=== PATIENT | female | born 1980 | race Caucasian/White ===

== ENCOUNTER 2017-01-31 14:20 | Emergency (ER) | payer MEDICARE, MEDICAID ==
[~2017-01-31] VITALS: Ht 160 cm; Wt 89.8 kg
[~2017-01-31 14:20] MED LIST: CELE20TA; COUMADIN PO; COUMADIN25 PO; HYDR25TA8; NAPROSY500 PO; TRAZ50TA
[2017-01-31] MEDS ORDERED: BREO1INH (14:44)
[2017-01-31] MEDS ORDERED: OMEP20CA3 (14:44)
[2017-01-31] MEDS ORDERED: FERR325T (14:44)
[2017-01-31] MEDS ORDERED: ALBU17IN (14:44)
[2017-01-31] MEDS ORDERED: ATOR40TA (14:44)
[2017-01-31] MEDS ORDERED: PRAZ1CAP (14:44)
[2017-01-31] MEDS ORDERED: TRAZ50TA4 (14:44)
[2017-01-31] MEDS ORDERED: VITA50003 (14:44)
[2017-01-31] MEDS ORDERED: FLUO40CA (14:44)
[2017-01-31 16:23] VITALS: BP 121/74
--- NOTE | 2017-01-31 17:19 | REP ---
RIGHT ELBOW: HISTORY: Pain after trauma. FINDINGS: There is no acute fracture, dislocation, subluxation, or joint effusion. Signed by Reynaldo Peters DO 02/01/2017 11:53 A
--- NOTE | 2017-01-31 17:28 | REP ---
RIGHT HAND: HISTORY: Pain after trauma. No priors for comparison. FINDINGS: The joint spaces are symmetric and relatively well maintained. There is no evidence of acute fracture or destructive osseous lesion. IMPRESSION: Negative hand. Signed by Reynaldo Peters DO 02/01/2017 11:53 A
--- NOTE | 2017-01-31 17:33 | REP ---
RIGHT TIBIA FIBULA: HISTORY: Pain after trauma. COMPARISON: None. FINDINGS: No acute fracture or destructive osseous lesion. There is mild pericortical thickening involving the fibula, likely secondary to reparative/remodeling process due to an old stress related phenomena. Signed by Reynaldo Peters DO 02/01/2017 11:53 A
--- NOTE | 2017-02-03 19:21 | ED PDOC ---
Provider Note aiden mayorga faxed formal report of right tib/fib for fu Holli Allison MD Feb 03, 2017 19:21
== END 2017-01-31 16:35 | disposition home or self-care (01) ==
LOC: M ED 15:26
DX: S50.01XA Contusion of right elbow, initial encounter (principal); S80.11XA Contusion of right lower leg, initial encounter; W10.9XXA Fall (on) (from) unspecified stairs and steps, initial encounter; Y92.019 Unspecified place in single-family (private) house as the place of occurrence of the external cause; Y93.01 Activity, walking, marching and hiking; Y99.8 Other external cause status; Z88.6 Allergy status to analgesic agent; Z79.899 Other long term (current) drug therapy; I10 Essential (primary) hypertension; J45.909 Unspecified asthma, uncomplicated; F41.9 Anxiety disorder, unspecified; F32.9 Major depressive disorder, single episode, unspecified

== ENCOUNTER 2017-02-20 11:57 | Emergency (ER) | payer MEDICARE, MEDICAID ==
[~2017-02-20] VITALS: Ht 157.5 cm; Wt 90.7 kg
[~2017-02-20 11:57] MED LIST changes: +ALBU17IN; +ATOR40TA; +BREO1INH; +FERR325T; +FLUO40CA; +OMEP20CA3; +PRAZ1CAP; +TRAZ50TA4; +VITA50003
[2017-02-20] MEDS ORDERED: TRAZ150T14 PO (12:12)
[2017-02-20] MEDS ORDERED: ONDANSETRON 4 MG ORAL DISINTEGRATING TAB (S0181) PO ONE (12:30)
[2017-02-20] MEDS ORDERED: NORCO, ANEXSIA 5/325MG TABLET (HYDROcodone/ACETAMINOPHEN) PO ONE (12:30)
--- NOTE | 2017-02-20 13:26 | REP ---
Clinical: Trauma. Technique: AP, lateral, bilateral oblique views of the left wrist. Findings: Diffuse osteopenia. No obvious acute fracture or dislocation identified. No significant soft tissue swelling. No subcutaneous emphysema or radiodense foreign body. Impression: Osteopenia. No obvious acute fracture dislocation. Signed by Perez Downing MD 02/20/2017 01:17 P
[2017-02-20 13:39] VITALS: BP 119/78
== END 2017-02-20 13:45 | disposition home or self-care (01) ==
LOC: M ED 13:01
DX: S63.522A Sprain of radiocarpal joint of left wrist, initial encounter (principal); W19.XXXA Unspecified fall, initial encounter; Y92.89 Other specified places as the place of occurrence of the external cause; Y93.89 Activity, other specified; Y99.9 Unspecified external cause status

== ENCOUNTER 2017-02-27 08:14 | Outpatient (RCR) | payer MEDICARE, MEDICAID | END 2017-03-24 | LOC: M OT 08:14 | PROVIDERS: ATTEND Nurse Practitioner Adult Health | DX: M25.539 Pain in unspecified wrist (principal); M77.9 Enthesopathy, unspecified | CPT/HCPCS: 97165; G8984; G8985 ==

== ENCOUNTER → 2017-02-27 | Outpatient (CLI) | payer MEDICARE, MEDICAID ==
[~2017-02-27] MED LIST changes: +TRAZ150T14 PO
[2017-02-27 11:06] LABS: MEAN CORPUSCULAR HEMOGLOBIN 30.2 pg (27.0-33.0); MEAN CORPUSCULAR HGB CONC 33.5 g/dl (32.0-36.5); MEAN CORPUSCULAR VOLUME 90.2 fl (80.0-96.0); RED CELL DISTRIBUTION WIDTH 12.6 % (11.5-14.5); WHITE BLOOD COUNT 5.6 K/mm3 (4.0-10.0)
--- NOTE | 2017-02-27 11:18 | REP ---
TWO VIEW CHEST: COMPARISON: 08/15/2015 There is no evidence of acute infiltrate. No pleural effusion is seen. The heart is normal in size. The mediastinal silhouette is unremarkable. The visualized osseous structures are intact. IMPRESSION: No acute pulmonary disease. Signed by Nathan Mederos MD 02/27/2017 12:16 P
[2017-02-27 12:03] LABS: ALBUMIN/GLOBULIN RATIO 1.14 (1.00-1.93); ALKALINE PHOSPHATASE 99 U/L (45-117); ALT/SGPT 21 U/L (12-78); ANION GAP 5 MEQ/L (8-16); AST/SGOT 16 U/L (15-37); BILIRUBIN,TOTAL 0.3 MG/DL (0.2-1.0); BLOOD UREA NITROGEN 13 MG/DL (7-18); CARBON DIOXIDE LEVEL 30 MEQ/L (21-32); CHLORIDE LEVEL 105 MEQ/L (98-107); CHOLESTEROL LEVEL 136 MG/DL (<200); CREATININE FOR GFR 0.79 MG/DL (0.55-1.02); FERRITIN 77 NG/ML (8-252); GLOMERULAR FILTRATION RATE > 60.0 (>60); GLUCOSE, FASTING 101 MG/DL (70-105); SODIUM LEVEL 140 MEQ/L (136-145); TOTAL PROTEIN 7.5 GM/DL (6.4-8.2); TRIGLYCERIDES LEVEL 85 MG/DL (<150)
[2017-02-27 13:16] LABS: EOSINOPHILS 4 % (0-5)
== END ==
LOC: M LAB 10:14
PROVIDERS: ATTEND Physician Assistant Medical
DX: D64.9 Anemia, unspecified (principal); E78.2 Mixed hyperlipidemia; E55.9 Vitamin D deficiency, unspecified

== ENCOUNTER 2017-04-13 21:51 | Observation (INO) | payer MEDICARE, MEDICAID ==
[~2017-04-13] VITALS: Ht 157.5 cm; Wt 90.2 kg
[~2017-04-13 21:51] MED LIST changes: -ALBU17IN; +ALBU17IN PO; -ATOR40TA; +ATOR40TA75 PO; -BREO1INH; +BREO1INH PO; +FERR1TAB8 PO; -FERR325T; -FLUO40CA; +FLUO40CA PO; -OMEP20CA3; +OMEP20CA3 PO; -TRAZ150T14 PO; +TRAZ1TAB14 PO; +TRAZ50TA11; -TRAZ50TA4; +VITA1CAP40 PO; -VITA50003
[2017-04-13] MEDS ORDERED: NITROGLYCERIN 0.4 MG SUBL TABLET SL STA ×2 (22:25→22:55)
[2017-04-13 22:30] LABS: BASO % 0.5 % (0.0-1.0); EOS # 0.2 K/mm3 (0.0-0.50); EOS % 2.6 % (0.0-3.0); LARGE UNSTAINED CELL # 0.1 K/mm3 (0.0-0.4); LARGE UNSTAINED CELL % 1.3 % (0.0-4.0); LYMPH # 2.2 K/mm3 (1.5-4.5); LYMPH % 28.3 % (24.0-44.0); MEAN CORPUSCULAR HEMOGLOBIN 31.4 pg (27.0-33.0); MEAN CORPUSCULAR HGB CONC 33.7 g/dl (32.0-36.5); MEAN CORPUSCULAR VOLUME 93.2 fl (80.0-96.0); MONO # 0.5 K/mm3 (0.0-0.8); MONO % 5.8 % (0.0-5.0); NEUTROPHILS # 4.8 K/mm3 (1.8-7.7); NEUTROPHILS % 61.6 % (36.0-66.0); PLATELET COUNT, AUTOMATED 251 k/mm3 (150-450); RED CELL DISTRIBUTION WIDTH 12.4 % (11.5-14.5); WHITE BLOOD COUNT 7.7 K/mm3 (4.0-10.0)
[2017-04-13 22:44] LABS: INR 1.09
[2017-04-13 22:54] LABS: ALBUMIN 4.4 GM/DL (3.2-5.2); ALKALINE PHOSPHATASE 112 U/L (45-117); ALT/SGPT 25 U/L (12-78); ANION GAP 7 MEQ/L (8-16); AST/SGOT 17 U/L (15-37); BILIRUBIN,DIRECT 0.2 MG/DL (0.0-0.2); BILIRUBIN,TOTAL 0.7 MG/DL (0.2-1.0); BLOOD UREA NITROGEN 13 MG/DL (7-18); CALCIUM LEVEL 8.9 MG/DL (8.5-10.1); CARBON DIOXIDE LEVEL 31 MEQ/L (21-32); CHLORIDE LEVEL 101 MEQ/L (98-107); CREATININE FOR GFR 1.04 MG/DL (0.55-1.02); GLOMERULAR FILTRATION RATE > 60.0 (>60); GLUCOSE, FASTING 84 MG/DL (70-105); POTASSIUM SERUM 3.5 MEQ/L (3.5-5.1); SODIUM LEVEL 139 MEQ/L (136-145); TOTAL PROTEIN 8.4 GM/DL (6.4-8.2)
[2017-04-13] MEDS ORDERED: ISOVUE-370 76% 100ML VIAL (Q9967) As Ordered ONE (23:06)
[2017-04-13 23:18] LABS: FREE T4 0.99 NG/DL (0.76-1.46); MAGNESIUM LEVEL 1.8 MG/DL (1.8-2.4); PHOSPHORUS LEVEL 4.2 MG/DL (2.5-4.9)
--- NOTE | 2017-04-14 | REPUSA ---
CLINICAL HISTORY: Edema. COMMENTS: Real time sonography with duplex doppler of the extremities bilaterally was performed with attention to the major deep venous structures. Evaluation reveals the common femoral, superficial femoral, popliteal veins bilaterally to be complet delaney compressible without intraluminal thrombus. There is normal spontaneous phasic flow and augmentat ion in all deep veins. The greater saphenous/common femoral vein junctions are patent bilaterally. IMPRESSION: No evidence of DVT in the lower extremities bilaterally. Thank you for your kind referral of this patient.
--- NOTE | 2017-04-14 | REPUSA ---
History: chest pain. Comparison: No prior CTA of the chest available Technique: A CT-pulmonary angiogram was performed. A dose of intravenous contrast was administered. A xial images were displayed, as were sagittal and coronal reconstructions. Findings: No CT evidence of pulmonary embolism is identified. There is no evidence of thoracic aortic aneurysm or dissection. No air space consolidation is identified in the lungs. There is no evidence of pulmonary edema. No pa thologically enlarged hilar or mediastinal lymph nodes are identified. No significant pleural or maximus cardial fluid collection is seen. There is no evidence of pneumothorax. The included portion of the upper abdomen does not show significant abnormality. Impression: No evidence of pulmonary embolism is identified.
[2017-04-14] MEDS ORDERED: BISACODYL 5 MG TAB PO PRN (04:45)
[2017-04-14] MEDS ORDERED: ONDANSETRON 4MG/2ML VIAL (J2405) IV PRN (04:45)
[2017-04-14] MEDS ORDERED: MORPHINE 2 MG/ML 1ML SYRINGE IV PRN (05:00)
[2017-04-14] MEDS ORDERED: TERB1CRE12 TOP (05:01)
[2017-04-14] MEDS ORDERED: FERR325T3 PO (05:01)
[2017-04-14] MEDS ORDERED: amLODIPine 10 MG TAB PO ONE (05:30)
[2017-04-14] MEDS ORDERED: POTASSIUM CHLORIDE 10 MEQ SR TABLET PO ONE (05:45)
[2017-04-14] MEDS ORDERED: MAG SULF 1GM/100ML (MAG RUN) 1 GM in APPROPRIATE DILUENT 1 EA IV ONE (05:45)
[2017-04-14] MEDS ORDERED: GI COCKTAIL 50ML BTL(HYOSCYAMINE/MAALOX/LIDOCAINE VISCOUS)(1:3:1) PO ONE (06:00)
[2017-04-14] MEDS ORDERED: GI COCKTAIL 50ML BTL(HYOSCYAMINE/MAALOX/LIDOCAINE VISCOUS)(1:3:1) PO PRN (06:00)
[2017-04-14] MEDS ORDERED: SUCRALFATE 1 GM TAB PO ONE (06:00)
[2017-04-14 06:21] LABS: BASO % 0.6 % (0.0-1.0); EOS # 0.2 K/mm3 (0.0-0.50); EOS % 3.3 % (0.0-3.0); LARGE UNSTAINED CELL # 0.1 K/mm3 (0.0-0.4); LARGE UNSTAINED CELL % 1.7 % (0.0-4.0); LYMPH # 2.3 K/mm3 (1.5-4.5); LYMPH % 34.9 % (24.0-44.0); MEAN CORPUSCULAR HEMOGLOBIN 30.3 pg (27.0-33.0); MEAN CORPUSCULAR HGB CONC 33.2 g/dl (32.0-36.5); MEAN CORPUSCULAR VOLUME 91.2 fl (80.0-96.0); MONO # 0.4 K/mm3 (0.0-0.8); MONO % 6.4 % (0.0-5.0); NEUTROPHILS # 3.4 K/mm3 (1.8-7.7); NEUTROPHILS % 53.1 % (36.0-66.0); PLATELET COUNT, AUTOMATED 222 k/mm3 (150-450); RED CELL DISTRIBUTION WIDTH 12.8 % (11.5-14.5); WHITE BLOOD COUNT 6.3 K/mm3 (4.0-10.0)
[2017-04-14 06:30] VITALS: BP 150/87
[2017-04-14] MEDS ORDERED: PENICILLIN V POTASSIUM 500 MG TAB PO ONE (06:30)
[2017-04-14 07:24] LABS: ANION GAP 8 MEQ/L (8-16); BLOOD UREA NITROGEN 17 MG/DL (7-18); CALCIUM LEVEL 8.7 MG/DL (8.5-10.1); CARBON DIOXIDE LEVEL 28 MEQ/L (21-32); CHLORIDE LEVEL 105 MEQ/L (98-107); CHOLESTEROL LEVEL 168 MG/DL (<200); CREATININE FOR GFR 0.87 MG/DL (0.55-1.02); GLOMERULAR FILTRATION RATE > 60.0 (>60); GLUCOSE, FASTING 97 MG/DL (70-105); MAGNESIUM LEVEL 2.1 MG/DL (1.8-2.4); POTASSIUM SERUM 4.2 MEQ/L (3.5-5.1); SODIUM LEVEL 141 MEQ/L (136-145); TRIGLYCERIDES LEVEL 62 MG/DL (<150)
[2017-04-14 08:00] VITALS: BP 135/76
--- NOTE | 2017-04-14 08:02 | ECGEPIP ---
Stationary ECG Study [facility] Test Date: 2017-04-14 Pat Name: SCOTT SENIOR Department: Room: - Gender: F Integrity Manager: LUZ : 1980 Requested By: BRUCE Germain Order Number: [id number] Reading MD: Dominga Levy Measurements Intervals [place] Rate: 57 P: 22 ME: 168 QRS: 5 QRSD: 111 T: 38 QT: 421 QTc: 413 Interpretive Statements SINUS BRADYCARDIA MODERATE INTRAVENTRICULAR CONDUCTION DELAY RATE SLOWER PVCS ABSENT C/W 07/19/16 Electronically Signed On 04-14-2017 8:02:20 EDT by Dominga Levy
--- NOTE | 2017-04-14 08:07 | REP ---
Clinical: Chest pain . Comparison: 02/27/2017 . Findings: The mediastinum and cardiac silhouette are stable and within normal limits for portable technique. The lung aguirre are clear without acute consolidation, effusion, or pneumothorax. Skeletal structures are intact. Impression: Normal portable chest x-ray Signed by Perez Downing MD 04/14/2017 07:58 A
--- NOTE | 2017-04-14 08:17 | HPE ---
DATE OF ADMISSION: 04/13/2017 PRIMARY CARE PROVIDER: JOHANN Rm INPATIENT HOSPITALIST ATTENDING: Dr. Edy Naranjo CHIEF COMPLAINT: Chest pain, shortness of breath. HISTORY OF PRESENT ILLNESS: This is a 36-year-old female with a history of hypertension, pulmonary embolus (PE) treated in 2006 with 6 months of anticoagulation, who presents to the emergency room with complaints of left-sided anterior chest pain without radiation for the past 3 days, that occurred while she was lying down, constant and achy, "like someone punched me in the chest", accompanied with some nausea without vomiting, with no recent trauma. She has also been having subjective fevers and feeling hot and cold, sore throats on and off for the past few weeks with positive Streptococcus screen. The patient denied any history of palpitations, lightheadedness, dizziness. Denies any prior history of cocaine abuse. Has a family history of coronary artery disease in the father who had an myocardial infarction (ID) as a young man and currently still alive in his 60s. The patient cardiovascular risk factors are hypertension, hyperlipidemia. No priors history of smoking. In the emergency room, she was found to have no pulmonary embolism on repeat CT of the chest. Troponins were negative. Electrocardiogram (EKG) showed bigeminy, ventricular rate of 71 with moderate intraventricular conduction delay. Potassium and magnesium were supplemented. The patient denied any prior history of reflux, denies hematemesis, bright red blood per rectum, melena, or black tarry stools, but is on chronic Prilosec. No prior history of peptic ulcer disease. No prior esophagogastroduodenoscopy (EGD), colonoscopy or upper gastrointestinal (GI) series. She also denies any history of smoking, asthma, or lung issues in the past. Hospitalist service was called for admission for further evaluation of chest pain. PAST MEDICAL HISTORY: Pulmonary embolism in 2006 while she was treated with 6 months of anticoagulation. Hypertension. Bipolar disorder. Dysmenorrhea with chronic anemia iron deficiency. Depression. Hyperlipidemia. PAST SURGICAL HISTORY: times two. Tonsillectomy. Right carpal tunnel repair. Left arm ligament repair. SOCIAL HISTORY: Denies any history of cigarette use, alcohol use. Currently on disability. FAMILY HISTORY: Mother in her 60s alive and well with asthma. Father has coronary artery disease, ID at an early age. He is still alive at age 60. ALLERGIES: ACETAMINOPHEN causing nausea. ASPIRIN, hives. IBUPROFEN, pruritus and hives. HOME MEDICATIONS: - trazodone 150 mg nightly as needed - ferrous sulfate 325 mg by mouth three times a day - fluoxetine 40 mg daily - Prilosec 20 mg daily - prazosin 1 mg daily - albuterol as needed - vitamin D deficiency - Breo Ellipta inhaled daily - atorvastatin 40 mg daily REVIEW OF SYSTEMS: Per history of present illness (HPI), 12-point system otherwise negative. PHYSICAL EXAMINATION: VITAL SIGNS: Blood pressure 163/97, pulse 60 sinus rhythm, temperature 97.9, respiratory rate 16, pulse ox 99% on room air. GENERAL: The patient is awake, alert, oriented times three. Answers questions appropriately. No respiratory distress. No cyanosis. No use of respiratory accessory muscles. HEENT: Anicteric sclera. Pupils equal, round, and reactive to light and accommodation. Extraocular muscles are intact. Normocephalic, atraumatic. No pharyngeal erythema. No tonsillar exudates. No cervical lymphadenopathy. No thyromegaly. No jugular venous distention. LUNGS: Lungs are clear to auscultation. No wheezing, rales or rhonchi. HEART: S1, S2 sinus rhythm. Reducible anterior chest pain on palpation. No murmurs, rubs or gallops. ABDOMEN: Soft, nontender, nondistended. Obese abdomen. EXTREMITIES: No cyanosis, clubbing or pitting edema. Multiple scars of the right forearm from prior carpal tunnel release repair as well as tendon repair in the left forearm. EKG: Sinus rhythm, ventricular rate at 71. Moderate intraventricular conduction delay. MS interval 161, QRS 114, QT 395, QTC 418. White count 7.7, hemoglobin 16, hematocrit 48, platelet count 251. Sodium 139, potassium 3.5, chloride 101, bicarbonate 31, BUN 13, creatinine 1.04, glucose 84 , calcium 8.9, magnesium 1.8, phosphorus 4.2, total bilirubin 0.7, direct bilirubin 0.2, AST 17, ALT 25, alkaline phosphatase 112, total CK 83, MB fraction 1. Relative index 1.2, troponin I less than 0.02, BNP 22.4, total protein 8.4, albumin 4.4, lipase 119, TSH 3.17, free T4 0.99. Microbiology and cultures are pending. CT chest: No pulmonary embolism. No thoracic aortic aneurysm or dissection. No airspace consolidation. No hilar or mediastinal lymphadenopathy. No pneumothorax. Venous Dopplers of the lower extremities: No evidence of deep venous thrombosis (DVT) bilaterally. ASSESSMENT/PLAN: This is a 36-year-old female with prior history of pulmonary embolism in 2006 during her stage, treated with anticoagulation for 6 months, hypertension, hyperlipidemia, bipolar disorder who presents to the emergency room with on and off complaints of sore throat found to be Streptococcus positive. Also complained of 3 days of left anterior chest pain described as if someone had punched her. No history of trauma. This occurred while she was lying down, accompanied with some shortness of breath. The patient was evaluated for PE, which was negative. EKG showed bigemini. Troponins are negative. The patient is admitted for further evaluation as an observation. Attending physician Dr. Edy Naranjo. IMPRESSION: 1. Atypical chest pain. Troponins are negative. Imaging studies including CT chest is negative for pulmonary embolus (PE). The patient appears to have costochondritis or musculoskeletal pain, but with allergies to aspirin, Tylenol and ibuprofen, as needed morphine for now. 2. For acute kidney injury, we will provide IV fluids. Once creatinine is improved, may be discharged home. The patient will need continued proton pump inhibitor (PPI). Will send for H. Pylori serum antigen. May need an upper gastrointestinal (GI) series as an out patient to rule out a hiatal hernia and empiric treatment with GI cocktail and Carafate. 3. Hypertension: Uncontrolled. Continue Norvasc until urine drug screen is negative for drug use. The patient denies any drug use, however. Start on Norvasc 10 mg daily. The patient is bradycardic. 4. Abnormal Electrocardiogram (EKG) with bigemini intraventricular conduction delay. Telemetry monitoring and echocardiogram. Unlikely to be anything concerning. May discharge home if telemetry is unremarkable. 5. History of bipolar disorder: Resume home medications. 6. Insomnia: Resume trazodone as needed. 7. Depression/bipolar disorder: Continue on psychiatric medications. 8. Hyperlipidemia: Check lipid profile and continue on Lipitor. 9. Deep venous thrombosis (DVT) prophylaxis with Lovenox injections. DISPOSITION: May discharge home if workup is negative. [facility]
[2017-04-14] MEDS: ATORVASTATIN 20 MG TAB PO SCH (08:18)
[2017-04-14] MEDS: FLUoxetine 20 MG CAP PO SCH (08:19)
[2017-04-14] MEDS: OMEPRAZOLE 20 MG CAP PO SCH (08:19)
[2017-04-14] MEDS: FERROUS SULFATE 325MG TAB PO SCH ×3 (08:20→20:51)
[2017-04-14] MEDS: ENOXAPARIN 40 MG/0.4 ML SYRINGE (J1650) SC SCH (08:22)
[2017-04-14] MEDS: NS 1,000 ML IV SCH ×2 (08:22→14:41)
[2017-04-14] MEDS: PRAZOSIN 1 MG CAP PO SCH (08:40)
[2017-04-14] MEDS ORDERED: BREO ELLIPTA INH SCH (09:00)
[2017-04-14 12:00] VITALS: BP 115/62
[2017-04-14] MEDS: SUCRALFATE 1 GM TAB PO SCH ×3 (12:10→20:51)
--- NOTE | 2017-04-14 12:33 | ECGEPIP ---
Stationary ECG Study [facility] Test Date: 2017-04-14 Pat Name: SCOTT SENIOR Department: Room: - Gender: F Roll Cleaner: LUZ : 1980 Requested By: BRUCE Germain Order Number: [id number] Reading MD: Dominga Levy Measurements Intervals [place] Rate: 62 P: 11 RI: 152 QRS: 11 QRSD: 113 T: 50 QT: 410 QTc: 417 Interpretive Statements SINUS RHYTHM MODERATE INTRAVENTRICULAR CONDUCTION DELAY T WAVE ABN SEPTAL AGAIN PRESENT COMPARED TO 04/14/17 Electronically Signed On 04-14-2017 12:32:30 EDT by Dominga Levy
[2017-04-14 16:00] VITALS: BP 141/71
[2017-04-14] MEDS ORDERED: ACETAMINOPH W/CODEINE #3 TAB UD PO PRN (18:45)
[2017-04-14 20:00] VITALS: BP 122/71
--- NOTE | 2017-04-14 20:01 | ECGEPIP ---
Stationary ECG Study [facility] - ED Test Date: 2017-04-13 Pat Name: SCOTT SENIOR Department: Room: [place] [address] Gender: F Skill Training Program Coordinator: aimee : 1980 Requested By: ELMER PASCUAL Order Number: [id number] Reading MD: Erika Jacinto Measurements Intervals [place] Rate: 71 P: 24 [place]: 161 QRS: 14 QRSD: 114 T: 47 QT: 395 QTc: 431 Interpretive Statements SINUS RHYTHM MODERATE INTRAVENTRICULAR CONDUCTION DELAY SEPTAL T WAVE ABNORMALITY COMPARED 07/19/16 Electronically Signed On 04-14-2017 20:01:11 EDT by Erika Jacinto
--- NOTE | 2017-04-14 20:04 | ECGEPIP ---
Stationary ECG Study [facility] - ED Test Date: 2017-04-13 Pat Name: SCOTT SENIOR Department: Room: [place] [address] Gender: F Manager Lan: aimee : 1980 Requested By: HANNA Butler Order Number: [id number] Reading MD: Eriak Jacinto Measurements Intervals [place] Rate: 103 P: [place]: 0 QRS: -5 QRSD: 114 T: 68 QT: 390 QTc: 511 Interpretive Statements SINUS RHYTHM WITH VENTRICULAR PREMATURE COMPLEXES MODERATE INTRAVENTRICULAR CONDUCTION DELAY ABNORMAL RHYTHM ECG INCREASED RATE/ECTOPY 22:07 Electronically Signed On 04-14-2017 20:04:03 EDT by Erika Jacinto
--- NOTE | 2017-04-14 20:05 | ECGEPIP ---
Stationary ECG Study [facility] - ED Test Date: 2017-04-14 Pat Name: SCOTT SENIOR Department: Room: [place] [address] Gender: F Pipe And Test Supervisor: aimee : 1980 Requested By: HANNA Butler Order Number: [id number] Reading MD: Erika Jacinto Measurements Intervals [place] Rate: 101 P: 45 ME: 210 QRS: 4 QRSD: 110 T: 61 QT: 360 QTc: 467 Interpretive Statements SINUS TACHYCARDIA WITH FIRST DEGREE AV BLOCK WITH FREQUENT VENTRICULAR PREMATURE COMPLEXES NONSPECIFIC T-WAVE ABNORMALITY INCREASED RATE /ECTOPY 12:02 Electronically Signed On 04-14-2017 20:04:56 EDT by Erika Jacinto
[2017-04-14 20:15] VITALS: BP 138/77
[2017-04-14] MEDS: PENICILLIN V POTASSIUM 500 MG TAB PO SCH (20:51)
[2017-04-14] MEDS ORDERED: traZODone 50 MG TAB PO SCH (21:00)
--- NOTE | 2017-04-15 05:58 | ECHO ---
DATE OF PROCEDURE: 04/14/2017 AGE: 36 GENDER: Female REFERRING PHYSICIAN: Dr. Marlen Reaves INPATIENT: PCU Room 3211 INDICATION: Abnormal EKG. History of pulmonary emboli. MEASUREMENTS: 2D MEASUREMENTS: RV - 3.6 cm LV- 5.1 cm Septum - 1.1 cm Posterior wall - 0.9 cm Aortic root - 3.0 cm LA - 4.0 cm LVEF - 70% DOPPLER MEASUREMENTS: AV - 1.6 m/s LVOT - 1.6 m/s MV-E: 110 A: 66 EA ratio 1.7 Early mitral deacceleration time - 201 ms E-prime - 9.6 A-prime - 8 E/E prime ratio - 11.9 PV - 0.9 m/s Pulmonary artery acceleration time 103 ms PASP - 33 mmHg IVC - 1.9 cm COMMENTS: Normal sinus rhythm without intraventricular conduction service. Left atrial size upper limits of normal to mildly dilated. Otherwise normal heart chamber sizes. Normal left ventricular wall thickness. On real-time imaging from the parasternal and apical projections, both right and left ventricular wall motion was hyperkinetic. Normal-appearing mitral valvular apparatus and leaflet excursion with no posterior systolic buckling. Three equal size aortic cusps of normal thickness and cusp separation. Normal aortic root size. No apparent intracardiac mass or pericardial effusion. Color flow Doppler study taken from the parasternal and apical projection showed trace tricuspid but no mitral or aortic insufficiency. Guided continuous wave Doppler of her aortic valve showed a normal peak systolic velocity against LV outflow tract obstruction. Pulsed and continuous wave Doppler of her LV inflow tract taken from the apical four-chamber projection showed normal diastolic filling velocities against mitral stenosis. The filling pattern was also normal against LV diastolic dysfunction. This was confirmed using tissue Doppler of her mitral annulus. Normal estimated mean left atrial pressure. Pulsed and continuous wave Doppler of her pulmonary trunk showed a normal peak systolic velocity against RV outflow tract obstruction. Her pulmonary artery acceleration time was somewhat abbreviated suggestive of a borderline increased pulmonary vascular resistance and perhaps borderline pulmonary hypertension. We attempted to further estimate her right ventricular systolic pressure using guided continuous wave Doppler of her tricuspid valve but could not get a clear spectral envelope of the slight degree of tricuspid insufficiency. Her inferior vena cava was of normal size with normal respiratory collapse against an elevated central venous pressure. CONCLUSIONS: Normal left ventricular size, wall thickness and wall motion. Borderline left atrial enlargement with currently normal Doppler assessment of LV diastolic function and estimated mean left atrial pressure. Normal right heart chamber sizes and contraction with single Doppler sign of borderline pulmonary hypertension. Normal IVC size and collapse. Normal appearing and functioning valvular apparatus.
[2017-04-15 06:00] VITALS: BP 116/66
[2017-04-15] MEDS: ENOXAPARIN 40 MG/0.4 ML SYRINGE (J1650) SC SCH (08:29)
[2017-04-15] MEDS: SUCRALFATE 1 GM TAB PO SCH ×2 (08:29→12:07)
[2017-04-15] MEDS: OMEPRAZOLE 20 MG CAP PO SCH (08:30)
[2017-04-15] MEDS: FERROUS SULFATE 325MG TAB PO SCH (08:30)
[2017-04-15] MEDS: FLUoxetine 20 MG CAP PO SCH (08:30)
[2017-04-15] MEDS: ATORVASTATIN 20 MG TAB PO SCH (08:30)
[2017-04-15 09:00] VITALS: BP 121/80
[2017-04-15] MEDS: PRAZOSIN 1 MG CAP PO SCH (09:00)
[2017-04-15] MEDS ORDERED: amLODIPine 10 MG TAB PO SCH (09:00)
[2017-04-15] MEDS: PENICILLIN V POTASSIUM 500 MG TAB PO SCH (10:50)
[2017-04-15] MEDS ORDERED: PENI500T PO (11:06)
[2017-04-15] MEDS ORDERED: LIDOCAINE VISCOUS 2% SOLN 15ML UDC SS PRN (11:15)
--- NOTE | 2017-04-15 17:45 | DS.PDOC ---
Discharge Summary General Date of Admission April 13, 2017 at 22:40 Date of Discharge 04/15/17 Discharge Summary PROCEDURES PERFORMED DURING STAY: None. ADMITTING DIAGNOSES: 1. . Strep pharyngitis 2. . Hypertension DISCHARGE DIAGNOSES: 1. . Strep pharyngitis 2. . Hypertension COMPLICATIONS/CHIEF COMPLAINT: Chest Pain. HISTORY OF PRESENT ILLNESS: . 36-year-old female with past medical history of pulmonary embolism in 2006 in the s/p 6 months of anticoagulation, hypertension, bipolar disorder, iron deficiency anemia, depression, and this lipidemia percent to the ER with a chief complaint of worsening fevers, chills cough, congestion, left-sided anterior chest pain, and overall fatigue with malaise. The patient was admitted to the hospitalist service for further workup and evaluation. During hospitalization the patient was noted to be positive for strep pharyngitis. The patient was started on penicillin 500mg BID. In addition, the patient's cardiac workup including follow-up EKG, troponins, and monitoring on telemetry revealed no acute findings. A CTA of the chest was negative for any acute pulmonary embolism. The patient states that her symptoms significantly improved with antibiotics and supportive therapy. At this time, the patient is eager to return home. I've advised patient to complete a 10 day regimen of penicillin as prescribed. In addition, I have asked the patient to follow-up with primary care physician within 7 days. The patient is also been advised to return to the ER if her symptoms persist or worsen. DISCHARGE MEDICATIONS: Please see below. ALLERGIES: Please see below. PHYSICAL EXAMINATION ON DISCHARGE: VITAL SIGNS: Please see below. GENERAL: Awake, alert, oriented HEENT: Mild pharyngeal erythema, no exudates noted NECK: No JVD CARDIOVASCULAR EXAMINATION: Normal rate, normal rhythm RESPIRATORY EXAMINATION: Clear to auscultation bilaterally ABDOMINAL EXAMINATION: Soft, nontender, nondistended EXTREMITIES: No erythema, or tenderness in the lower extremity bilaterally LABORATORY DATA: Please see below. IMAGING: History: chest pain. Comparison: No prior CTA of the chest available Technique: A CT-pulmonary angiogram was performed. A dose of intravenous contrast was administered. Axial images were displayed, as were sagittal and coronal reconstructions. Findings: No CT evidence of pulmonary embolism is identified. There is no evidence of thoracic aortic aneurysm or dissection. No air space consolidation is identified in the lungs. There is no evidence of pulmonary edema. No pathologically enlarged hilar or mediastinal lymph nodes are identified. No significant pleural or pericardial fluid collection is seen. There is no evidence of pneumothorax. The included portion of the upper abdomen does not show significant abnormality. Impression: No evidence of pulmonary embolism is identified. PROGNOSIS: Medically stable ACTIVITY: As tolerated. DIET: . 2 g low sodium diet DISCHARGE PLAN: DISPOSITION: Home, Self-Care. DISCHARGE INSTRUCTIONS: 1. . Complete 10 day course of penicillin 2. Follow-up with primary care physician within 7 days 3. Return to ER if symptoms return or worsen DISCHARGE CONDITION: Stable. TIME SPENT ON DISCHARGE: Greater than 30 minutes. Vital Signs/I&Os Vital Signs Date Time Temp Pulse Resp B/P (MAP) Pulse Ox O2 Delivery O2 Flow Rate FiO2 04/15/17 09:00 67 121/80 04/15/17 06:00 98.0 18 98 Room Air I&O- Last 24 Hours up to 6 AM 04/15/17 06:00 Intake Total 2640 ml Output Total 2250 ml Balance 390 ml Laboratory Data Labs 24H Laboratory Tests 2 04/14/17 17:50: Total Creatine Kinase 84, Creatine Kinase MB 1.0, Creatine Kinase MB Relative Index 1.19, Troponin I < 0.02 04/14/17 23:59: Total Creatine Kinase 74, Creatine Kinase MB 1.0, Creatine Kinase MB Relative Index 1.35, Troponin I < 0.02 Microbiology Microbiology 04/14/17 Urine Culture - Final, Complete Discharge Medications Scheduled (Terbinafine HCl) 1 % Cre, 1 DOSE TOP BID, (Reported) APPLY TO LOWER ABDOMEN AND FEET Atorvastatin Calcium (Atorvastatin Calcium) 40 Mg Tab, 40 MG PO DAILY, (Reported ) Ergocalciferol (Vitamin D) 50,000 Unit Cap, 50,000 UNITS PO QWEEK, (Reported) MONDAYS Ferrous Sulfate (Ferrous Sulfate) 325 Mg Tab, 650 MG PO QAM, (Reported) Ferrous Sulfate (Ferrous Sulfate) 325 Mg Tab, 325 MG PO QHS, (Reported) Fluoxetine Hcl (Fluoxetine HCl) 40 Mg Cap, 40 MG PO DAILY, (Reported) Fluticasone/Vilanterol (Breo Ellipta 100-25 Mcg/INH) 1 Inh Inh, 1 PUFF PO DAILY, (Reported) Omeprazole (Omeprazole) 20 Mg Cap, 20 MG PO DAILY, (Reported) Penicillin V Potassium (Penicillin V Potassium) 500 Mg Tab, 500 MG PO BID Trazodone HCl (Trazodone HCl) 150 Mg Tab, 150 MG PO QHS, (Reported) Scheduled PRN Albuterol Sulfate (Ventolin Hfa) 200 Puff/8 Gm Aers, 2 PUFFS PO Q4H PRN for SHORTNESS OF BREATH, (Reported) Allergies Coded Allergies: Aspirin (Verified Allergy, Intermediate, HIVES, 02/20/17) Acetaminophen (Verified Adverse Reaction, Mild, "sick to my stomach", 02/20) Ibuprofen (Verified Adverse Reaction, Mild, itching, 02/20/17) ERON JACOBSON MD April 15, 2017 17:45
== END 2017-04-15 14:45 | disposition home or self-care (01) ==
LOC: M ED 22:39 → M ED INP 22:40 → M PCU 04-14 06:19 → M MS4PR 04-14 20:06
PROVIDERS: ADMIT General Practice; ATTEND Internal Medicine
DX: J02.0 Streptococcal pharyngitis (principal); R07.9 Chest pain, unspecified; R06.02 Shortness of breath; I10 Essential (primary) hypertension; E78.4 Other hyperlipidemia; D50.9 Iron deficiency anemia, unspecified; N17.9 Acute kidney failure, unspecified; F31.9 Bipolar disorder, unspecified; Z86.711 Personal history of pulmonary embolism; G47.00 Insomnia, unspecified; Z88.8 Allergy status to other drugs, medicaments and biological substances; Z79.899 Other long term (current) drug therapy
CPT/HCPCS: 36415; 71010; 71275; 80048; 80061; 80076; 81001; 82550; 82553; 83690; 83735; 83880; 84100; 84439; 84443; 84484; 85025; 85610; 85730; 86677; 87086; 87880; 93005; 93041; 93306; 93970; 94760; 96372; 96374; 99285; G0378; J1650; J3475; Q9967

== ENCOUNTER 2017-05-01 12:35 | Emergency (ER) | payer MEDICARE, MEDICAID ==
[~2017-05-01 12:35] MED LIST changes: +ATOR40TA PO; -ATOR40TA75 PO; -FERR1TAB8 PO; +FERR325T PO; +FERR325T3 PO; +PENI50TA PO; +TERB1CRE8 TOP; +TRAZ150T14 PO; -TRAZ1TAB14 PO; -TRAZ50TA11; +TRAZ50TA4; -VITA1CAP40 PO; +VITA50003 PO
[2017-05-01] MEDS ORDERED: FLON27.5 (14:36)
[2017-05-01] MEDS ORDERED: XYZA5TAB4 PO (14:36)
[2017-05-01 14:49] VITALS: BP 103/67
--- NOTE | 2017-05-10 11:55 | ECGEPIP ---
Stationary ECG Study [facility] - ED Test Date: 2017-05-01 Pat Name: SCOTT SENIOR Department: Room: - Gender: F Network Support Analyst: ROBI : 1980 Requested By: Erika Jacinto Order Number: [id number] Reading MD: Carlos Reardon Measurements Intervals [place] Rate: 59 P: 18 [place]: 171 QRS: 3 QRSD: 105 T: 15 QT: 397 QTc: 396 Interpretive Statements SINUS BRADYCARDIA NSTTW ABNORMALITIES SIMILAR TO 04/14/17 Electronically Signed On 05-10-2017 11:55:28 EDT by Carlos Reardon
== END 2017-05-01 14:57 | disposition home or self-care (01) ==
LOC: M ED 13:26
DX: J30.2 Other seasonal allergic rhinitis (principal); R09.82 Postnasal drip; R07.89 Other chest pain; Z86.711 Personal history of pulmonary embolism; Z79.899 Other long term (current) drug therapy; Z88.6 Allergy status to analgesic agent

== ENCOUNTER 2017-05-15 07:13 | Emergency (ER) | payer MEDICARE, MEDICAID ==
[~2017-05-15] VITALS: Ht 157.5 cm; Wt 91.4 kg
[~2017-05-15 07:13] MED LIST changes: -ATOR40TA PO; +ATOR40TA75 PO; +FERR1TAB8 PO; -FERR325T PO; +FLON27.5; +PENI500T PO; -PENI50TA PO; +TERB1CRE12 TOP; -TERB1CRE8 TOP; -TRAZ150T14 PO; +TRAZ1TAB14 PO; +TRAZ50TA11; -TRAZ50TA4; +VITA1CAP40 PO; -VITA50003 PO; +XYZA5TAB4 PO
[2017-05-15 07:24] VITALS: BP 139/85
[2017-05-15] MEDS ORDERED: AZEL0.1S3 (07:38)
== END 2017-05-15 08:11 | disposition home or self-care (01) ==
LOC: M ED 07:43
DX: J30.9 Allergic rhinitis, unspecified (principal); R07.89 Other chest pain; J45.909 Unspecified asthma, uncomplicated; I10 Essential (primary) hypertension; F41.9 Anxiety disorder, unspecified; F31.9 Bipolar disorder, unspecified; E78.5 Hyperlipidemia, unspecified; Z86.711 Personal history of pulmonary embolism; Z79.51 Long term (current) use of inhaled steroids; Z79.899 Other long term (current) drug therapy; Z88.6 Allergy status to analgesic agent

== ENCOUNTER → 2017-06-07 | Outpatient (CLI) | payer MEDICARE, MEDICAID ==
[~2017-06-07] MED LIST changes: +AZEL0.1S3; +E-Z-GAS II EFFERVESCENT PACKET (SODIUM BICARB./CITRIC ACID/SIMETHICONE) As Ordered ONE; +E-Z-HD 98% w/w 340GM SUSP BTL As Ordered ONE; +E-Z-PAQUE 96% w/w SUSP 176GM BTL As Ordered ONE; +PANT40TA2 PO
[2017-06-07 09:13] LABS: BASO % 0.7 % (0.0-1.0); EOS # 0.2 K/mm3 (0.0-0.50); EOS % 3.4 % (0.0-3.0); LYMPH # 2.1 K/mm3 (1.5-4.5); LYMPH % 40.3 % (24.0-44.0); MEAN CORPUSCULAR HEMOGLOBIN 31.3 pg (27.0-33.0); MEAN CORPUSCULAR HGB CONC 34.2 g/dl (32.0-36.5); MEAN CORPUSCULAR VOLUME 91.5 fl (80.0-96.0); MONO # 0.4 K/mm3 (0.0-0.8); MONO % 6.8 % (0.0-5.0); NEUTROPHILS # 2.5 K/mm3 (1.8-7.7); NEUTROPHILS % 46.4 % (36.0-66.0); RED CELL DISTRIBUTION WIDTH 12.3 % (11.5-14.5); WHITE BLOOD COUNT 5.3 K/mm3 (4.0-10.0)
[2017-06-07 09:35] LABS: ALBUMIN/GLOBULIN RATIO 1.18 (1.00-1.93); ALKALINE PHOSPHATASE 107 U/L (45-117); ALT/SGPT 20 U/L (12-78); ANION GAP 3 MEQ/L (8-16); AST/SGOT 16 U/L (15-37); BILIRUBIN,TOTAL 0.4 MG/DL (0.2-1.0); BLOOD UREA NITROGEN 19 MG/DL (7-18); CARBON DIOXIDE LEVEL 30 MEQ/L (21-32); CHLORIDE LEVEL 104 MEQ/L (98-107); CREATININE FOR GFR 0.72 MG/DL (0.55-1.02); FERRITIN 83 NG/ML (8-252); GLOMERULAR FILTRATION RATE > 60.0 (>60); GLUCOSE, FASTING 94 MG/DL (70-105); POTASSIUM SERUM 4.2 MEQ/L (3.5-5.1); SODIUM LEVEL 137 MEQ/L (136-145); TOTAL PROTEIN 7.4 GM/DL (6.4-8.2)
[2017-06-07 10:06] LABS: FOLATE 9.8 NG/ML; VITAMIN B12 LEVEL 330 PG/ML
--- NOTE | 2017-06-07 18:46 | REP ---
ESOPHAGRAM: The procedure was performed under the direct supervision of Dr. Mederos. The images were reviewed with Dr. Mederos. A single view PA chest x-ray is submitted as a automatic buffing wheel former film. The superior mediastinal structures are midline. The heart size was with normal limits. The lungs are clear. Liquid barium and gas-producing granules were given in the erect position as well as liquid barium in the prone oblique position in order to perform a double-contrast esophagram examination. The oral and pharyngeal stages of deglutition are unremarkable. Esophageal transport is prompt and efficient and there is no esophagitis, stricture, mucosal ring, or hiatal hernia. Gastroesophageal reflux is not demonstrated on this examination. IMPRESSION: Essentially unremarkable double contrast esophagram examination. 50 seconds of fluoroscopic time was utilized for this procedure. Reviewed by CLAIRE Kumar 06/10/2017 04:35 PEdited and Signed by Nathan Mederos MD 06/10/2017 04:41 P
[2017-06-09 00:10] LABS: Lyme Disease IgG/IgM Antibodie <0.91 ISR (0.00-0.90); Lyme Disease IgM Ab Quantitati <0.80 index (0.00-0.79)
[2017-06-10 11:00] LABS: ALBUMIN 4.35 GM/DL (3.29-5.55); ALBUMIN % 58.8 % (55.8-66.1)
== END ==
LOC: M RAD 07:43 → M LAB 07:43
PROVIDERS: ATTEND Physician Assistant Medical
DX: R13.10 Dysphagia, unspecified (principal); R53.83 Other fatigue; Z79.899 Other long term (current) drug therapy

== ENCOUNTER 2017-06-11 15:04 | Emergency (ER) | payer MEDICARE, MEDICAID ==
[~2017-06-11] VITALS: Ht 157.5 cm; Wt 89.5 kg
[~2017-06-11 15:04] MED LIST changes: -E-Z-GAS II EFFERVESCENT PACKET (SODIUM BICARB./CITRIC ACID/SIMETHICONE) As Ordered ONE; -E-Z-HD 98% w/w 340GM SUSP BTL As Ordered ONE; -E-Z-PAQUE 96% w/w SUSP 176GM BTL As Ordered ONE; -PANT40TA2 PO
[2017-06-11] MEDS ORDERED: PANT40TA2 PO (15:19)
--- NOTE | 2017-06-11 16:33 | REP ---
Right ankle four views : There is no fracture or dislocation. Mineralization and joint spaces are normal. There are no calcifications or foreign bodies. Impression: Negative right ankle. A calcaneal plantar spur is incidentally identified. Signed by Nathan Stout MD 06/11/2017 04:25 P
[2017-06-11 16:45] VITALS: BP 134/90
--- NOTE | 2017-06-11 16:55 | ED PDOC ---
Post-Departure Follow-Up PT REQUESTED SOMETHING FOR PAIN BUT LISTS ALLERGIES TYLENOL, ASA, MOTRIN. PT STATED SHE WANTED "HYDROCODONE." NURSING STAFF ADVISED THAT THIS HAS TYLENOL IN IT AND PT STATED, "STRAIGHT TYLENOL UPSETS MY STOMACH, BUT I CAN TAKE HYDROCODONE." ADVISED IF SHE TRULY IS ALLERGIC TO TYLENOL, SHE WILL NOT BE GETTING ANY HYDROCODONE." LANA VILLARREAL PA-C Jun 11, 2017 16:55
== END 2017-06-11 16:51 | disposition home or self-care (01) ==
LOC: M ED 15:04
DX: S93.401A Sprain of unspecified ligament of right ankle, initial encounter (principal); F31.9 Bipolar disorder, unspecified; V19.9XXA Pedal cyclist (driver) (passenger) injured in unspecified traffic accident, initial encounter; Y92.89 Other specified places as the place of occurrence of the external cause; Y99.9 Unspecified external cause status; Y93.9 Activity, unspecified; Z86.711 Personal history of pulmonary embolism; Z88.6 Allergy status to analgesic agent; Z79.899 Other long term (current) drug therapy

== ENCOUNTER 2017-07-19 10:01 | Emergency (ER) | payer MEDICARE, MEDICAID ==
[~2017-07-19] VITALS: Ht 157.5 cm; Wt 92.5 kg
[~2017-07-19 10:01] MED LIST changes: +PANT40TA2 PO
[2017-07-19] MEDS ORDERED: ASPIRIN 81 MG CHEW TABLET PO ONE (11:45)
[2017-07-19 11:51] LABS: BASO % 0.5 % (0.0-1.0); EOS # 0.2 K/mm3 (0.0-0.50); EOS % 3.5 % (0.0-3.0); LARGE UNSTAINED CELL # 0.1 K/mm3 (0.0-0.4); LARGE UNSTAINED CELL % 1.3 % (0.0-4.0); LYMPH # 2.2 K/mm3 (1.5-4.5); LYMPH % 38.3 % (24.0-44.0); MEAN CORPUSCULAR HEMOGLOBIN 31.2 pg (27.0-33.0); MEAN CORPUSCULAR HGB CONC 34.2 g/dl (32.0-36.5); MEAN CORPUSCULAR VOLUME 91.3 fl (80.0-96.0); MONO # 0.4 K/mm3 (0.0-0.8); MONO % 7.2 % (0.0-5.0); NEUTROPHILS # 2.7 K/mm3 (1.8-7.7); NEUTROPHILS % 49.2 % (36.0-66.0); PLATELET COUNT, AUTOMATED 208 k/mm3 (150-450); RED CELL DISTRIBUTION WIDTH 12.6 % (11.5-14.5); WHITE BLOOD COUNT 5.5 K/mm3 (4.0-10.0)
[2017-07-19 12:02] LABS: ALBUMIN 3.9 GM/DL (3.2-5.2); ALKALINE PHOSPHATASE 100 U/L (45-117); ALT/SGPT 19 U/L (12-78); ANION GAP 8 MEQ/L (8-16); AST/SGOT 18 U/L (15-37); BILIRUBIN,DIRECT < 0.1 MG/DL (0.0-0.2); BILIRUBIN,TOTAL 0.4 MG/DL (0.2-1.0); BLOOD UREA NITROGEN 9 MG/DL (7-18); CALCIUM LEVEL 8.7 MG/DL (8.5-10.1); CARBON DIOXIDE LEVEL 29 MEQ/L (21-32); CHLORIDE LEVEL 106 MEQ/L (98-107); CREATININE FOR GFR 0.82 MG/DL (0.55-1.02); GLOMERULAR FILTRATION RATE > 60.0 (>60); GLUCOSE, FASTING 95 MG/DL (70-105); SODIUM LEVEL 143 MEQ/L (136-145); TOTAL PROTEIN 7.8 GM/DL (6.4-8.2)
[2017-07-19] MEDS ORDERED: GI COCKTAIL 50ML BTL(HYOSCYAMINE/MAALOX/LIDOCAINE VISCOUS)(1:3:1) PO ONE (12:15)
[2017-07-19] MEDS ORDERED: ISOVUE-370 76% 100ML VIAL (Q9967) As Ordered ONE (12:30)
--- NOTE | 2017-07-19 13:25 | REP ---
CHEST, SINGLE VIEW: There is no evidence of acute infiltrate. No pleural effusion is seen. The heart is normal in size. The mediastinal silhouette is unremarkable. The visualized osseous structures are intact. IMPRESSION: No acute pulmonary disease. Signed by Nathan Mederos MD 07/19/2017 05:22 P
--- NOTE | 2017-07-19 13:51 | REP ---
CT PULMONARY ANGIOGRAM: With IV contrast. HISTORY: Chest pain and shortness of breath Comparison studies: April 13, 2017 Contrast dose: 75 mL of Isovue [address] TECHNIQUE: Helical scanning is acquired and overlapping 1.5 mm and contiguous 3 mm axial images are reformatted. In addition, a 3D work station is deployed to generate thick slab maximum intensity projection images in sagittal and coronal imaging projections. CT PULMONARY ANGIOGRAPHIC FINDINGS: There is good opacification of the pulmonary arterial tree and there is no CT evidence of pulmonary embolism. Thoracic aorta enhances homogeneously and is normal in course and caliber. No hilar or mediastinal mass or adenopathy is seen. No pleural or pericardial effusion is seen. No infiltrate mass or nodule is seen in the lung aguirre. Maximal intensity projection images show no vessel cutoff or filling defect. No bony destructive lesion is seen. IMPRESSION: No CT evidence of pulmonary embolism. Unremarkable CT pulmonary angiogram. Signed by Lebron Curtis MD 07/19/2017 01:56 P
[2017-07-19 14:21] LABS: FREE T4 0.93 NG/DL (0.76-1.46); MAGNESIUM LEVEL 2.1 MG/DL (1.8-2.4); PHOSPHORUS LEVEL 4.2 MG/DL (2.5-4.9)
[2017-07-19 18:36] VITALS: BP 132/70
--- NOTE | 2017-07-21 08:18 | ECGEPIP ---
Stationary ECG Study [facility] - ED Test Date: 2017-07-19 Pat Name: SCOTT SENIOR Department: Room: - Gender: F Resolution Specialist: : 1980 Requested By: HANNA Butler Order Number: [id number] Reading MD: Erika Jacinto Measurements Intervals [place] Rate: 50 P: 21 [place]: 163 QRS: 10 QRSD: 105 T: 36 QT: 442 QTc: 404 Interpretive Statements SINUS BRADYCARDIA NSTTW ABNORMALITY DECREASED RATE 07/19/17 Electronically Signed On 07-21-2017 8:18:23 EDT by Erika Jacinto
--- NOTE | 2017-07-21 19:09 | ECGEPIP ---
Stationary ECG Study [facility] - ED Test Date: 2017-07-19 Pat Name: SCOTT SENIOR Department: Room: - Gender: F Strawhat Blocking Operator: ROBI : 1980 Requested By: SHADE Lozoya Order Number: [id number] Reading MD: Carlos Reardon Measurements Intervals [place] Rate: 105 P: 14 MO: 238 QRS: -3 QRSD: 108 T: 65 QT: 364 QTc: 482 Interpretive Statements SINUS RHYTHM WITH FIRST DEGREE AV BLOCK WITH FREQUENT VENTRICULAR PREMATURE COMPLEXES IN A BIGEMINAL PATTERN Electronically Signed On 07-21-2017 19:09:11 EDT by Carlos Reardon
--- NOTE | 2017-07-22 15:57 | ECGEPIP ---
Stationary ECG Study [facility] - ED Test Date: 2017-07-19 Pat Name: SCOTT SENIOR Department: Room: - Gender: F Oven Baker: JUgo : 1980 Requested By: SHADE Lozoya Order Number: [id number] Reading MD: Erika Jacinto Measurements Intervals [place] Rate: 60 P: 21 [place]: 172 QRS: -2 QRSD: 102 T: 17 QT: 416 QTc: 416 Interpretive Statements SINUS RHYTHM NSTTW ABNORMALITY SIMILAR 05/01/17 Electronically Signed On 07-19-2017 10:43:36 EDT by Erika Jacinto
== END 2017-07-19 18:53 | disposition home or self-care (01) ==
LOC: M ED 10:01
DX: R07.9 Chest pain, unspecified (principal); R06.02 Shortness of breath; R42 Dizziness and giddiness; I10 Essential (primary) hypertension; E78.5 Hyperlipidemia, unspecified; F33.9 Major depressive disorder, recurrent, unspecified; N94.6 Dysmenorrhea, unspecified; Z86.711 Personal history of pulmonary embolism; Z79.899 Other long term (current) drug therapy; Z88.8 Allergy status to other drugs, medicaments and biological substances; Z91.018 Allergy to other foods
CPT/HCPCS: 71010; 71275; 80048; 80076; 82550; 82553; 83690; 83735; 83880; 84100; 84439; 84443; 84484; 85025; 93005; 93041; 94760; 99285; Q9967

== ENCOUNTER → 2017-10-19 | Outpatient (CLI) | payer MEDICARE, MEDICAID ==
[2017-10-19 10:24] LABS: BASO % 0.5 % (0.0-1.0); EOS # 0.2 10^3/uL (0.0-0.50); EOS % 3.7 % (0.0-3.0); IMMATURE GRANULOCYTE % 0.4 % (0-0); LYMPH # 2.4 10^3/uL (1.5-4.5); LYMPH % 42.6 % (24.0-44.0); MEAN CORPUSCULAR HEMOGLOBIN 29.9 pg (27.0-33.0); MEAN CORPUSCULAR HGB CONC 32.7 g/dl (32.0-36.5); MEAN CORPUSCULAR VOLUME 91.5 fl (80.0-96.0); MONO # 0.5 10^3/uL (0.0-0.8); MONO % 8.3 % (0.0-5.0); NEUTROPHILS # 2.5 10^3/uL (1.8-7.7); NEUTROPHILS % 44.5 % (36.0-66.0); PLATELET COUNT, AUTOMATED 236 10^3/uL (150-450); RED CELL DISTRIBUTION WIDTH 12.6 % (11.5-14.5); WHITE BLOOD COUNT 5.7 10^3/uL (4.0-10.0)
[2017-10-19 10:51] LABS: ALBUMIN 3.8 GM/DL (3.2-5.2); ALBUMIN/GLOBULIN RATIO 1.12 (1.00-1.93); ALKALINE PHOSPHATASE 102 U/L (45-117); ALT/SGPT 25 U/L (12-78); ANION GAP 6 MEQ/L (8-16); AST/SGOT 16 U/L (7-37); BILIRUBIN,TOTAL 0.4 MG/DL (0.2-1.0); BLOOD UREA NITROGEN 14 MG/DL (7-18); CALCIUM LEVEL 9.2 MG/DL (8.5-10.1); CARBON DIOXIDE LEVEL 31 MEQ/L (21-32); CHLORIDE LEVEL 105 MEQ/L (98-107); CHOLESTEROL LEVEL 217 MG/DL (<200); CREATININE FOR GFR 0.77 MG/DL (0.55-1.02); FERRITIN 103 NG/ML (8-252); GLOMERULAR FILTRATION RATE > 60.0 (>60); GLUCOSE, FASTING 96 MG/DL (70-105); POTASSIUM SERUM 4.4 MEQ/L (3.5-5.1); SODIUM LEVEL 142 MEQ/L (136-145); TOTAL PROTEIN 7.2 GM/DL (6.4-8.2); TRIGLYCERIDES LEVEL 180 MG/DL (<150)
== END ==
LOC: M LAB 09:34
PROVIDERS: ATTEND Physician Assistant Medical
DX: D64.9 Anemia, unspecified (principal); E78.00 Pure hypercholesterolemia, unspecified

== ENCOUNTER 2017-10-22 08:16 | Day surgery (SDC) | payer MEDICARE, MEDICAID ==
[~2017-10-22] VITALS: Ht 157.5 cm; Wt 95.3 kg
[~2017-10-22 08:16] MED LIST changes: +LIDOCAINE 2% INJ 100 MG/5 ML SDV (FOR ANES.) As Ordered ONE; +PROPOFOL 200 MG/20 ML VIAL As Ordered ONE
[2017-10-22] MEDS ORDERED: NS 1,000 ML IV ONE (09:00)
--- NOTE | 2017-10-22 10:25 | ROOR ---
Patient Name: Trish Carvajal Procedure Date: 10/22/2017 10:10 AM Date of : 1980 Age: 37 Room: [facility] Gender: Female Note Status: Finalized Procedure: Upper GI endoscopy Indications: Dysphagia, Heartburn Providers: Pepe MCGOVERN MD Referring MD: JOHANN KITCHEN Requesting Provider: Medicines: Monitored Anesthesia Care Complications: No immediate complications. Procedure: Pre-Anesthesia Assessment: - The heart rate, respiratory rate, oxygen saturations, blood pressure, adequacy of pulmonary ventilation, and response to care were monitored throughout the procedure. The Endoscope was introduced through the mouth, and advanced to the second part of duodenum. The upper GI endoscopy was accomplished without difficulty. The patient tolerated the procedure well. Findings: The examined esophagus was normal. This was biopsied with a cold forceps for evaluation of eosinophilic esophagitis. No endoscopic abnormality was evident in the esophagus to explain the patient's complaint of dysphagia. It was decided, however, to proceed with dilation of the entire esophagus. The scope was withdrawn. Dilation was performed with a Zamora dilator with no resistance at 54 Fr. The dilation site was examined following endoscope reinsertion and showed no change. The entire examined stomach was normal. The examined duodenum was normal. Impression: - Normal esophagus. Biopsied. - No endoscopic esophageal abnormality to explain patient's dysphagia. Esophagus dilated with 54 F Zamora dilator - Normal examined duodenum. Recommendation: - Observe patient's clinical course. - Use Protonix (pantoprazole) 40 mg PO BID. - Telephone endoscopist for pathology results in 2 weeks. - I anticipate no further need for intervention. Pepe Mcgovern MD Pepe MCGOVERN MD 10/22/2017 10:24:30 AM This report has been signed electronically. Number of Addenda: 0 Note Initiated On: 10/22/2017 10:10 AM Estimated Blood Loss: Estimated blood loss: none.
[2017-10-22] MEDS ORDERED: PROPOFOL 200 MG/20 ML VIAL As Ordered ONE (10:34)
--- NOTE | 2017-10-22 10:40 | ROOR ---
Patient Name: Trish Carvajal Procedure Date: 10/22/2017 10:10 AM Date of : 1980 Age: 37 Room: [facility] Gender: Female Note Status: Finalized Procedure: Colonoscopy Indications: Generalized abdominal pain, Change in bowel habits Providers: Pepe MCGOVERN MD Referring MD: JOHANN KITCHEN Requesting Provider: Medicines: Monitored Anesthesia Care Complications: No immediate complications. Procedure: Pre-Anesthesia Assessment: - The heart rate, respiratory rate, oxygen saturations, blood pressure, adequacy of pulmonary ventilation, and response to care were monitored throughout the procedure. The Colonoscope was introduced through the anus and advanced to 5 cm into the ileum. The colonoscopy was performed without difficulty. The patient tolerated the procedure well. The quality of the bowel preparation was good. Findings: The perianal and digital rectal examinations were normal. A 3 mm polyp was found in the ascending colon. The polyp was sessile. The polyp was removed with a cold snare. Resection and retrieval were complete. The exam was otherwise normal throughout the examined colon. The terminal ileum appeared normal. Small Internal Hemorrhoids. Impression: - One 3 mm polyp in the ascending colon, removed with a cold snare. Resected and retrieved. - The colon was otherwise normal. - The examined portion of the ileum was normal. - Small Internal Hemorrhoids. Recommendation: - Use fiber, for example Citrucel, Fibercon, Konsyl or Metamucil. - Telephone endoscopist for pathology results in 2 weeks. - If the pathology report reveals adenomatous tissue, then repeat the colonoscopy for surveillance in 5 years. - If the pathology report indicates hyperplastic polyp, then repeat colonoscopy at age [age] years old. Pepe Mcgovern MD Pepe MCGOVERN MD 10/22/2017 10:40:00 AM This report has been signed electronically. Number of Addenda: 0 Note Initiated On: 10/22/2017 10:10 AM Estimated Blood Loss: Estimated blood loss: none.
[2017-10-22 11:10] VITALS: BP 166/90
== END 2017-10-22 11:15 | disposition home or self-care (01) ==
LOC: M OPP 08:16
PROVIDERS: ATTEND Internal Medicine Gastroenterology
DX: R10.84 Generalized abdominal pain (principal); R19.4 Change in bowel habit; D12.2 Benign neoplasm of ascending colon; K64.8 Other hemorrhoids; R13.10 Dysphagia, unspecified; R12 Heartburn; E78.5 Hyperlipidemia, unspecified; R03.1 Nonspecific low blood-pressure reading; K21.9 Gastro-esophageal reflux disease without esophagitis; M19.90 Unspecified osteoarthritis, unspecified site; F41.9 Anxiety disorder, unspecified; F31.9 Bipolar disorder, unspecified; G43.909 Migraine, unspecified, not intractable, without status migrainosus; J45.909 Unspecified asthma, uncomplicated; Z86.711 Personal history of pulmonary embolism; Z88.8 Allergy status to other drugs, medicaments and biological substances; Z91.041 Radiographic dye allergy status; Z79.899 Other long term (current) drug therapy

== ENCOUNTER 2017-11-15 14:36 | Emergency (ER) | payer MEDICARE, MEDICAID ==
[~2017-11-15] VITALS: Ht 157.5 cm; Wt 100.3 kg
[~2017-11-15 14:36] MED LIST changes: -LIDOCAINE 2% INJ 100 MG/5 ML SDV (FOR ANES.) As Ordered ONE; -PROPOFOL 200 MG/20 ML VIAL As Ordered ONE
[2017-11-15] MEDS ORDERED: traMADol 50 MG TAB PO ONE (16:15)
[2017-11-15 17:18] VITALS: BP 125/82
[2017-11-15] MEDS ORDERED: ULTR50TA8 PO (17:23)
--- NOTE | 2017-11-15 17:23 | REP ---
Clinical: Trauma. Technique: AP, lateral, bilateral oblique views left hand. Findings: The osseous structures and joint spaces are intact and normal. There is no evidence for acute fracture or dislocation. Surrounding soft tissues are unremarkable. No subcutaneous emphysema or radiodense foreign body. Impression: No obvious acute fracture or dislocation. Signed by Perez Downing MD 11/15/2017 05:14 P
--- NOTE | 2017-11-15 17:24 | REP ---
Clinical: Trauma. Technique: AP view of the pelvis with neutral and frog lateral views of the left hip. Findings: No acute fracture dislocation. Skeletal structures, joint spaces, and surrounding soft tissues are normal for age. Phleboliths noted in the pelvis. Impression: No acute fracture dislocation. Signed by Perez Downing MD 11/15/2017 05:15 P
[2017-11-16] MEDS ORDERED: HYDR50TA70 (23:11)
[2017-11-16] MEDS ORDERED: AUGM875T28 PO (23:40)
[2017-11-16] MEDS ORDERED: FLOX0.3S OT (23:48)
== END 2017-11-15 17:32 | disposition home or self-care (01) ==
LOC: M ED 14:36
DX: S60.222A Contusion of left hand, initial encounter (principal); S70.02XA Contusion of left hip, initial encounter; W19.XXXA Unspecified fall, initial encounter; Y92.89 Other specified places as the place of occurrence of the external cause; Y93.89 Activity, other specified; Y99.8 Other external cause status; J45.909 Unspecified asthma, uncomplicated; F31.9 Bipolar disorder, unspecified; D64.9 Anemia, unspecified; Z86.711 Personal history of pulmonary embolism; Z79.899 Other long term (current) drug therapy; Z79.51 Long term (current) use of inhaled steroids; Z88.8 Allergy status to other drugs, medicaments and biological substances; Z91.048 Other nonmedicinal substance allergy status

== ENCOUNTER 2017-11-16 23:05 | Emergency (ER) | payer MEDICARE, MEDICAID ==
[~2017-11-16] VITALS: Ht 157.5 cm; Wt 109.0 kg
[~2017-11-16 23:05] MED LIST changes: +ULTR50TA8 PO
[2017-11-16] MEDS ORDERED: HYDR50TA70 (23:11)
[2017-11-16] MEDS ORDERED: AUGM875T28 PO (23:40)
[2017-11-16] MEDS ORDERED: AUGMENTIN 875 MG TAB PO ONE (23:45)
[2017-11-16] MEDS ORDERED: FLOX0.3S OT (23:48)
[2017-11-16 23:58] VITALS: BP 138/91
== END 2017-11-17 00:01 | disposition home or self-care (01) ==
LOC: M ED 23:05
DX: J01.90 Acute sinusitis, unspecified (principal); H60.502 Unspecified acute noninfective otitis externa, left ear

== ENCOUNTER → 2017-12-09 | Outpatient (CLI) | payer MEDICARE, MEDICAID ==
[2017-12-09 15:53] LABS: BASO % 0.5 % (0.0-1.0); EOS # 0.1 10^3/uL (0.0-0.50); EOS % 2.2 % (0.0-3.0); HEMATOCRIT 41.9 % (36.0-47.0); HEMOGLOBIN 14.1 g/dl (12.0-16.0); IMMATURE GRANULOCYTE % 0.2 % (0-0); LYMPH # 2.2 10^3/uL (1.5-4.5); LYMPH % 33.9 % (24.0-44.0); MEAN CORPUSCULAR HEMOGLOBIN 29.9 pg (27.0-33.0); MEAN CORPUSCULAR HGB CONC 33.7 g/dl (32.0-36.5); MEAN CORPUSCULAR VOLUME 88.8 fl (80.0-96.0); MONO # 0.5 10^3/uL (0.0-0.8); MONO % 7.6 % (0.0-5.0); NEUTROPHILS # 3.6 10^3/uL (1.8-7.7); NEUTROPHILS % 55.6 % (36.0-66.0); PLATELET COUNT, AUTOMATED 277 10^3/uL (150-450); RED BLOOD COUNT 4.72 10^6/uL (4.00-5.40); RED CELL DISTRIBUTION WIDTH 12.5 % (11.5-14.5); WHITE BLOOD COUNT 6.5 10^3/uL (4.0-10.0)
[2017-12-09 16:21] LABS: ALBUMIN 4.2 GM/DL (3.2-5.2); ALKALINE PHOSPHATASE 127 U/L (45-117); ALT/SGPT 21 U/L (12-78); ANION GAP 7 MEQ/L (8-16); AST/SGOT 19 U/L (7-37); BILIRUBIN,TOTAL 0.4 MG/DL (0.2-1.0); BLOOD UREA NITROGEN 18 MG/DL (7-18); CALCIUM LEVEL 9.1 MG/DL (8.5-10.1); CARBON DIOXIDE LEVEL 29 MEQ/L (21-32); CHLORIDE LEVEL 105 MEQ/L (98-107); CHOLESTEROL LEVEL 172 MG/DL (<200); CREATININE FOR GFR 0.79 MG/DL (0.55-1.02); GLOMERULAR FILTRATION RATE > 60.0 (>60); GLUCOSE, FASTING 94 MG/DL (70-105); HDL CHOLESTEROL 49 MG/DL (>40); LDL CHOLESTEROL 70.4 MG/DL (<100); NON-HDL-C 123 MG/DL; POTASSIUM SERUM 4.4 MEQ/L (3.5-5.1); SODIUM LEVEL 141 MEQ/L (136-145); TOTAL PROTEIN 7.7 GM/DL (6.4-8.2); TRIGLYCERIDES LEVEL 263 MG/DL (<150)
== END ==
LOC: M LAB 15:26
DX: E78.2 Mixed hyperlipidemia (principal); R94.31 Abnormal electrocardiogram [ECG] [EKG]
CPT/HCPCS: 93005

== ENCOUNTER 2018-01-13 23:06 | Emergency (ER) | payer MEDICARE, MEDICAID ==
[2018-01-14] MEDS: NORCO 5/325MG TABLET (BULK FOR ED) PO (01:20)
== END 2018-01-14 01:30 | disposition home or self-care (01) ==
LOC: M ED 23:06
DX: M65.4 Radial styloid tenosynovitis [de Quervain] (principal); J45.909 Unspecified asthma, uncomplicated; D64.9 Anemia, unspecified; F41.9 Anxiety disorder, unspecified; F33.9 Major depressive disorder, recurrent, unspecified; Z79.899 Other long term (current) drug therapy; Z79.51 Long term (current) use of inhaled steroids; Z88.8 Allergy status to other drugs, medicaments and biological substances; Z91.048 Other nonmedicinal substance allergy status
CPT/HCPCS: 99282

== ENCOUNTER 2018-02-13 20:19 | Emergency (ER) | payer MEDICARE, MEDICAID ==
[2018-02-13] MEDS: GI COCKTAIL 50ML BTL(HYOSCYAMINE/MAALOX/LIDOCAINE VISCOUS)(1:3:1) PO (22:30)
[2018-02-13 22:38] LABS: BASO % 0.5 % (0.0-1.0); EOS # 0.2 10^3/uL (0.0-0.50); EOS % 2.6 % (0.0-3.0); HEMATOCRIT 42.4 % (36.0-47.0); IMMATURE GRANULOCYTE % 0.2 % (0-3.0); LYMPH # 2.6 10^3/uL (1.5-4.5); LYMPH % 41.2 % (24.0-44.0); MEAN CORPUSCULAR HEMOGLOBIN 29.6 pg (27.0-33.0); MEAN CORPUSCULAR VOLUME 89.6 fl (80.0-96.0); MONO # 0.6 10^3/uL (0.0-0.8); MONO % 9.2 % (0.0-5.0); NEUTROPHILS # 2.9 10^3/uL (1.8-7.7); NEUTROPHILS % 46.3 % (36.0-66.0); PLATELET COUNT, AUTOMATED 249 10^3/uL (150-450); RED BLOOD COUNT 4.73 10^6/uL (4.00-5.40); RED CELL DISTRIBUTION WIDTH 12.5 % (11.5-14.5); WHITE BLOOD COUNT 6.2 10^3/uL (4.0-10.0)
[2018-02-13 22:55] LABS: D-DIMER QUANT < 270.0 ng/ml (<500)
[2018-02-13 23:01] LABS: ANION GAP 5 MEQ/L (8-16); BLOOD UREA NITROGEN 14 MG/DL (7-18); CALCIUM LEVEL 8.8 MG/DL (8.5-10.1); CARBON DIOXIDE LEVEL 32 MEQ/L (21-32); CHLORIDE LEVEL 104 MEQ/L (98-107); CK-MB VALUE MASS < 1.0 NG/ML (<3.6); CPK CREATINE PHOSPHOKINASE 95 U/L (26-192); CREATININE FOR GFR 0.76 MG/DL (0.55-1.30); GLOMERULAR FILTRATION RATE > 60.0 (>60); GLUCOSE, FASTING 88 MG/DL (70-100); MB/CK RELATIVE INDEX 1.05 (< OR =4); POTASSIUM SERUM 4.1 MEQ/L (3.5-5.1); SODIUM LEVEL 141 MEQ/L (136-145); TROPONIN I < 0.02 NG/ML (< 0.10)
== END 2018-02-13 23:43 | disposition home or self-care (01) ==
LOC: M ED 20:19
DX: K21.9 Gastro-esophageal reflux disease without esophagitis (principal); R07.9 Chest pain, unspecified; J45.909 Unspecified asthma, uncomplicated; Z79.899 Other long term (current) drug therapy; Z88.6 Allergy status to analgesic agent; Z88.8 Allergy status to other drugs, medicaments and biological substances; Z91.018 Allergy to other foods
CPT/HCPCS: 71046

== ENCOUNTER 2018-03-21 19:19 | Emergency (ER) | payer MEDICARE, MEDICAID ==
[2018-03-21 21:59] LABS: KETONE, URINE AUTO RFX NEGATIVE (NEGATIVE); MUCUS, URINE RFX SMALL (NEGATIVE); NITRITE, URINE AUTO RFX NEGATIVE (NEGATIVE); RBC, URINE AUTO RFX 1 /HPF (0-3); SPECIFIC GRAVITY UR AUTO RFX 1.021 (1.002-1.035); SQUAM EPITHELIAL CELL UR AURFX 1 /HPF (0-6); WBC, URINE AUTO RFX 5 /HPF (0-3)
[2018-03-21] MEDS: NS 1,000 ML IV (22:02)
[2018-03-21] MEDS: ONDANSETRON 4MG/2ML VIAL (J2405) IV (22:02)
[2018-03-21 22:04] LABS: BASO % 0.5 % (0.0-1.0); EOS # 0.1 10^3/uL (0.0-0.50); HEMATOCRIT 43.5 % (36.0-47.0); HEMOGLOBIN 14.4 g/dl (12.0-15.5); IMMATURE GRANULOCYTE % 0.2 % (0-3.0); LYMPH # 2.8 10^3/uL (1.5-4.5); LYMPH % 43.6 % (24.0-44.0); MEAN CORPUSCULAR HEMOGLOBIN 29.4 pg (27.0-33.0); MEAN CORPUSCULAR HGB CONC 33.1 g/dl (32.0-36.5); MONO # 0.5 10^3/uL (0.0-0.8); NEUTROPHILS # 2.9 10^3/uL (1.8-7.7); NEUTROPHILS % 45.7 % (36.0-66.0); PLATELET COUNT, AUTOMATED 266 10^3/uL (150-450); RED BLOOD COUNT 4.89 10^6/uL (4.00-5.40); RED CELL DISTRIBUTION WIDTH 12.8 % (11.5-14.5); WHITE BLOOD COUNT 6.4 10^3/uL (4.0-10.0)
[2018-03-21] MEDS: MORPHINE 4 MG/ML 1ML VIAL/SYRINGE (J2270) IV (22:08)
[2018-03-21 22:26] LABS: ALBUMIN/GLOBULIN RATIO 1.03 (1.00-1.93); ALKALINE PHOSPHATASE 115 U/L (45-117); ALT/SGPT 19 U/L (12-78); ANION GAP 5 MEQ/L (8-16); AST/SGOT 16 U/L (7-37); BILIRUBIN,DIRECT < 0.1 MG/DL (0.0-0.2); BILIRUBIN,TOTAL 0.3 MG/DL (0.2-1.0); BLOOD UREA NITROGEN 12 MG/DL (7-18); CALCIUM LEVEL 8.7 MG/DL (8.5-10.1); CARBON DIOXIDE LEVEL 29 MEQ/L (21-32); CHLORIDE LEVEL 108 MEQ/L (98-107); CREATININE FOR GFR 0.74 MG/DL (0.55-1.30); GLOMERULAR FILTRATION RATE > 60.0 (>60); GLUCOSE, FASTING 99 MG/DL (70-100); LEUKOCYTE ESTERASE UR AUTO RFX 1+ (NEGATIVE); LIPASE 84 U/L (73-393); POTASSIUM SERUM 4.2 MEQ/L (3.5-5.1); SODIUM LEVEL 142 MEQ/L (136-145); TOTAL PROTEIN 7.9 GM/DL (6.4-8.2)
[2018-03-21] MEDS ORDERED: ISOVUE-370 76% 100ML VIAL (Q9967) As Ordered (22:31)
[2018-03-21] MEDS: CIPROFLOXACIN 500 MG TAB PO (23:15)
== END 2018-03-22 | disposition home or self-care (01) ==
LOC: M ED 03-22
DX: R51 Headache (principal); N39.0 Urinary tract infection, site not specified; J45.909 Unspecified asthma, uncomplicated; E78.5 Hyperlipidemia, unspecified; K21.9 Gastro-esophageal reflux disease without esophagitis; F41.9 Anxiety disorder, unspecified; F33.9 Major depressive disorder, recurrent, unspecified; Z86.711 Personal history of pulmonary embolism; Z79.899 Other long term (current) drug therapy; Z79.51 Long term (current) use of inhaled steroids; Z88.8 Allergy status to other drugs, medicaments and biological substances
CPT/HCPCS: J2270

== ENCOUNTER 2018-06-11 13:13 | Emergency (ER) | payer MEDICARE, MEDICAID | END 2018-06-11 15:30 | disposition home or self-care (01) | LOC: M ED 13:13 | DX: H61.22 Impacted cerumen, left ear (principal); H66.92 Otitis media, unspecified, left ear; E78.5 Hyperlipidemia, unspecified; R51 Headache; J45.909 Unspecified asthma, uncomplicated; Z86.711 Personal history of pulmonary embolism; Z79.899 Other long term (current) drug therapy; Z88.6 Allergy status to analgesic agent; Z91.02 Food additives allergy status | CPT/HCPCS: 82746 ==

== ENCOUNTER → 2018-06-11 | Outpatient (CLI) | payer MEDICARE, MEDICAID ==
[2018-06-11 13:47] LABS: BASO % 0.4 % (0.0-1.0); EOS # 0.1 10^3/uL (0.0-0.50); EOS % 2.2 % (0.0-3.0); HEMATOCRIT 44.5 % (36.0-47.0); HEMOGLOBIN 14.6 g/dl (12.0-15.5); IMMATURE GRANULOCYTE % 0.2 % (0-3.0); LYMPH # 1.8 10^3/uL (1.5-4.5); LYMPH % 39.3 % (24.0-44.0); MEAN CORPUSCULAR HEMOGLOBIN 29.3 pg (27.0-33.0); MEAN CORPUSCULAR HGB CONC 32.8 g/dl (32.0-36.5); MEAN CORPUSCULAR VOLUME 89.4 fl (80.0-96.0); MONO # 0.3 10^3/uL (0.0-0.8); MONO % 6.8 % (0.0-5.0); NEUTROPHILS # 2.3 10^3/uL (1.8-7.7); NEUTROPHILS % 51.1 % (36.0-66.0); PLATELET COUNT, AUTOMATED 250 10^3/uL (150-450); RED BLOOD COUNT 4.98 10^6/uL (4.00-5.40); RED CELL DISTRIBUTION WIDTH 13.1 % (11.5-14.5); WHITE BLOOD COUNT 4.6 10^3/uL (4.0-10.0)
[2018-06-11 14:14] LABS: FOLATE 11.4 NG/ML (>5.4)
[2018-06-11 14:15] LABS: ESTIMATED AVERAGE GLUCOSE 120 MG/DL (60-110); HEMOGLOBIN A1c 5.8 %
[2018-06-11 14:18] LABS: ALBUMIN 3.8 GM/DL (3.2-5.2); ALBUMIN/GLOBULIN RATIO 1.06 (1.00-1.93); ALKALINE PHOSPHATASE 122 U/L (45-117); ALT/SGPT 20 U/L (12-78); ANION GAP 7 MEQ/L (8-16); AST/SGOT 17 U/L (7-37); BILIRUBIN,TOTAL 0.5 MG/DL (0.2-1.0); BLOOD UREA NITROGEN 8 MG/DL (7-18); CALCIUM LEVEL 8.7 MG/DL (8.5-10.1); CARBON DIOXIDE LEVEL 29 MEQ/L (21-32); CHLORIDE LEVEL 106 MEQ/L (98-107); CHOLESTEROL LEVEL 236 MG/DL (<200); CHOLESTEROL RISK RATIO 4.538 (<5); CREATININE FOR GFR 0.75 MG/DL (0.55-1.30); FERRITIN 78 NG/ML (8-252); GLOMERULAR FILTRATION RATE > 60.0 (>60); GLUCOSE, FASTING 88 MG/DL (70-100); HDL CHOLESTEROL 52 MG/DL (>40); IRON (FE) 127 UG/DL (50-170); LDL CHOLESTEROL 152.2 MG/DL (<100); NON-HDL-C 184 MG/DL; POTASSIUM SERUM 4.2 MEQ/L (3.5-5.1); SODIUM LEVEL 142 MEQ/L (136-145); TOTAL PROTEIN 7.4 GM/DL (6.4-8.2); TRIGLYCERIDES LEVEL 159 MG/DL (<150)
== END ==
LOC: M LAB 12:55
DX: E78.5 Hyperlipidemia, unspecified (principal)

== ENCOUNTER 2018-07-15 21:05 | Emergency (ER) | payer MEDICARE, MEDICAID | END 2018-07-15 22:59 | disposition home or self-care (01) | LOC: M ED 21:05 | DX: M77.30 Calcaneal spur, unspecified foot (principal); J45.909 Unspecified asthma, uncomplicated; K21.9 Gastro-esophageal reflux disease without esophagitis; M54.9 Dorsalgia, unspecified; F41.9 Anxiety disorder, unspecified; F31.9 Bipolar disorder, unspecified; Z86.711 Personal history of pulmonary embolism; Z87.42 Personal history of other diseases of the female genital tract; Z88.6 Allergy status to analgesic agent; Z91.02 Food additives allergy status; Z79.899 Other long term (current) drug therapy; Z79.51 Long term (current) use of inhaled steroids | CPT/HCPCS: 73630 ==

== ENCOUNTER 2018-08-12 11:23 | Outpatient (RCR) | payer MEDICARE, MEDICAID | END 2018-08-24 | LOC: M OT 11:23 | DX: Z47.89 Encounter for other orthopedic aftercare (principal); M25.539 Pain in unspecified wrist; Z98.890 Other specified postprocedural states | CPT/HCPCS: 97110 ==

== ENCOUNTER 2018-08-15 15:25 | Emergency (ER) | payer MEDICARE, MEDICAID ==
[2018-08-15 16:12] LABS: BASO % 0.4 % (0.0-1.0); EOS # 0.2 10^3/uL (0.0-0.50); HEMATOCRIT 41.6 % (36.0-47.0); HEMOGLOBIN 13.9 g/dl (12.0-15.5); IMMATURE GRANULOCYTE % 0.2 % (0-3.0); LYMPH # 2.4 10^3/uL (1.5-4.5); LYMPH % 44.1 % (24.0-44.0); MEAN CORPUSCULAR HEMOGLOBIN 29.9 pg (27.0-33.0); MEAN CORPUSCULAR HGB CONC 33.4 g/dl (32.0-36.5); MEAN CORPUSCULAR VOLUME 89.5 fl (80.0-96.0); MONO # 0.5 10^3/uL (0.0-0.8); MONO % 9.5 % (0.0-5.0); NEUTROPHILS # 2.3 10^3/uL (1.8-7.7); NEUTROPHILS % 42.8 % (36.0-66.0); PLATELET COUNT, AUTOMATED 267 10^3/uL (150-450); RED BLOOD COUNT 4.65 10^6/uL (4.00-5.40); RED CELL DISTRIBUTION WIDTH 13.2 % (11.5-14.5); WHITE BLOOD COUNT 5.4 10^3/uL (4.0-10.0)
[2018-08-15 16:40] LABS: ANION GAP 7 MEQ/L (8-16); BLOOD UREA NITROGEN 13 MG/DL (7-18); CALCIUM LEVEL 8.9 MG/DL (8.5-10.1); CARBON DIOXIDE LEVEL 29 MEQ/L (21-32); CHLORIDE LEVEL 106 MEQ/L (98-107); CK-MB VALUE MASS < 1.0 NG/ML (<3.6); CPK CREATINE PHOSPHOKINASE 90 U/L (26-192); CREATININE FOR GFR 0.79 MG/DL (0.55-1.30); GLOMERULAR FILTRATION RATE > 60.0 (>60); GLUCOSE, FASTING 76 MG/DL (70-100); MB/CK RELATIVE INDEX 1.11 (< OR =4); POTASSIUM SERUM 4.2 MEQ/L (3.5-5.1); SODIUM LEVEL 142 MEQ/L (136-145); TROPONIN I < 0.02 NG/ML (< 0.10)
[2018-08-15] MEDS ORDERED: ISOVUE-370 76% 100ML VIAL (Q9967) As Ordered (17:43)
[2018-08-15] MEDS: ACETAMINOPHEN TAB 650MG DOSE (2X325MG) PO (18:16)
[2018-08-15] MEDS: NITROGLYCERIN 0.4 MG SUBL TABLET SL (18:44)
[2018-08-15 22:14] LABS: CK-MB VALUE MASS < 1.0 NG/ML (<3.6); CPK CREATINE PHOSPHOKINASE 84 U/L (26-192); MB/CK RELATIVE INDEX 1.19 (< OR =4); TROPONIN I < 0.02 NG/ML (< 0.10)
== END 2018-08-15 22:52 | disposition home or self-care (01) ==
LOC: M ED 15:25
DX: R07.89 Other chest pain (principal); R00.1 Bradycardia, unspecified; Z01.818 Encounter for other preprocedural examination; M72.2 Plantar fascial fibromatosis; E78.5 Hyperlipidemia, unspecified; K21.9 Gastro-esophageal reflux disease without esophagitis; M54.9 Dorsalgia, unspecified; J45.909 Unspecified asthma, uncomplicated; F31.9 Bipolar disorder, unspecified; D64.9 Anemia, unspecified; Z86.711 Personal history of pulmonary embolism; Z82.49 Family history of ischemic heart disease and other diseases of the circulatory system; Z79.899 Other long term (current) drug therapy; Z88.6 Allergy status to analgesic agent; Z91.89 Other specified personal risk factors, not elsewhere classified
CPT/HCPCS: Q9967

== ENCOUNTER → 2018-08-15 | Outpatient (CLI) | payer MEDICARE, MEDICAID ==
[2018-08-15 16:01] LABS: HEMATOCRIT 40.7 % (36.0-47.0); HEMOGLOBIN 13.3 g/dl (12.0-15.5); MEAN CORPUSCULAR HEMOGLOBIN 29.3 pg (27.0-33.0); MEAN CORPUSCULAR HGB CONC 32.7 g/dl (32.0-36.5); MEAN CORPUSCULAR VOLUME 89.6 fl (80.0-96.0); PLATELET COUNT, AUTOMATED 249 10^3/uL (150-450); RED BLOOD COUNT 4.54 10^6/uL (4.00-5.40); RED CELL DISTRIBUTION WIDTH 13.2 % (11.5-14.5); WHITE BLOOD COUNT 4.4 10^3/uL (4.0-10.0)
[2018-08-15 16:21] LABS: ANION GAP 7 MEQ/L (8-16); BLOOD UREA NITROGEN 13 MG/DL (7-18); CALCIUM LEVEL 8.8 MG/DL (8.5-10.1); CARBON DIOXIDE LEVEL 29 MEQ/L (21-32); CHLORIDE LEVEL 106 MEQ/L (98-107); CREATININE FOR GFR 0.73 MG/DL (0.55-1.30); GLOMERULAR FILTRATION RATE > 60.0 (>60); GLUCOSE, FASTING 81 MG/DL (70-100); POTASSIUM SERUM 4.1 MEQ/L (3.5-5.1); SODIUM LEVEL 142 MEQ/L (136-145)
== END ==
LOC: M LAB 15:03
DX: Z01.818 Encounter for other preprocedural examination (principal); M72.2 Plantar fascial fibromatosis

== ENCOUNTER 2018-10-20 17:54 | Emergency (ER) | payer MEDICARE, MEDICAID ==
[2018-10-20] MEDS: MAGIC MOUTHWASH SUSPENSION BTL SS (21:33)
[2018-10-20] MEDS: ACETAMINOPHEN 325 MG TAB PO (21:41)
[2018-10-20] MEDS: BENZONATATE 100 MG CAP PO (21:41)
[2018-10-20 21:50] LABS: APPEARANCE, URINE HAZY (CLEAR); BACTERIA, URINE AUTO NEGATIVE (NEGATIVE); BILIRUBIN, URINE AUTO NEGATIVE (NEGATIVE); BLOOD, URINE BLOOD NEGATIVE (NEGATIVE); COLOR, URINE YELLOW (YELLOW); GLUCOSE, URINE (UA) AUTO NEGATIVE (NEGATIVE); KETONE, URINE AUTO NEGATIVE (NEGATIVE); LEUKOCYTE ESTERASE, URINE AUTO NEGATIVE (NEGATIVE); MUCUS, URINE SMALL (NEGATIVE); NITRITE, URINE AUTO NEGATIVE (NEGATIVE); PROTEIN, URINE AUTO NEGATIVE (NEGATIVE); RBC, URINE AUTO 1 /HPF (0-3); SPECIFIC GRAVITY URINE AUTO 1.024 (1.002-1.035); SQUAMOUS EPITHELIAL CELL UR AU 6 /HPF (0-6); WBC, URINE AUTO 1 /HPF (0-3)
[2018-10-20] MEDS: IPRATROPIUM 0.5MG/ALBUTEROL 2.5MG INH SOL UD 3ML (DUONEB)(J7620) NEB (21:54)
== END 2018-10-20 22:54 | disposition home or self-care (01) ==
LOC: M ED 17:54
DX: J06.9 Acute upper respiratory infection, unspecified (principal); B34.9 Viral infection, unspecified; H61.22 Impacted cerumen, left ear; J45.909 Unspecified asthma, uncomplicated; E78.5 Hyperlipidemia, unspecified; Z79.899 Other long term (current) drug therapy; Z88.8 Allergy status to other drugs, medicaments and biological substances; Z91.048 Other nonmedicinal substance allergy status
CPT/HCPCS: 94640

== ENCOUNTER → 2018-12-16 | Outpatient (REF) | payer MEDICARE, MEDICAID ==
[~2018-12-16] MED LIST changes: +AUGM875T28 PO; +CEFD300CAP PO; +CIPR-249 PO; +DEBR6.5S4 OTIC; +FAMO1TAB25 PO; +FLOX0.3S OT; +HYDR50TA70; +LIDO2SO PO; +METO1TAB87 PO; +MUCI1TAB18 PO; +NORCOTAB PO; -PANT40TA2 PO; +PANT40TA3 PO; +PEPC1TAB5 PO; +TESS100C PO; +TRAZ-160; +TRAZ-189 PO; -TRAZ50TA11; +VENTAER IN; -VITA1CAP40 PO; +VITA50005 PO
== END ==
LOC: M LAB REF 13:43
PROVIDERS: ATTEND Surgery
DX: L72.11 Pilar cyst (principal)

== ENCOUNTER 2019-01-13 18:18 | Emergency (ER) | payer MEDICARE, MEDICAID ==
[~2019-01-13] VITALS: Ht 157.5 cm; Wt 95.6 kg
[2019-01-13] MEDS ORDERED: KETOROLAC 30 MG/ML VIAL (J1885) IV ONE (20:15)
[2019-01-13] MEDS ORDERED: ACETAMINOPHEN 325 MG TAB PO ONE (20:15)
[2019-01-13 20:25] LABS: BASO % 0.3 % (0.0-1.0); EOS # 0.2 10^3/uL (0.0-0.50); EOS % 3.1 % (0.0-3.0); HEMATOCRIT 42.3 % (36.0-47.0); HEMOGLOBIN 14.1 g/dl (12.0-15.5); LYMPH % 35.2 % (24.0-44.0); MEAN CORPUSCULAR HEMOGLOBIN 30.1 pg (27.0-33.0); MEAN CORPUSCULAR HGB CONC 33.3 g/dl (32.0-36.5); MEAN CORPUSCULAR VOLUME 90.2 fl (80.0-96.0); MONO # 0.5 10^3/uL (0.0-0.8); NEUTROPHILS # 3.1 10^3/uL (1.8-7.7); NEUTROPHILS % 53.2 % (36.0-66.0); PLATELET COUNT, AUTOMATED 254 10^3/uL (150-450); RED BLOOD COUNT 4.69 10^6/uL (4.00-5.40); WHITE BLOOD COUNT 5.8 10^3/uL (4.0-10.0)
[2019-01-13 20:37] LABS: INR 0.99; PROTHROMBIN TIME 13.2 SECONDS (12.1-14.4)
[2019-01-13 20:38] LABS: PARTIAL THROMBOPLASTIN TIME 30.7 SECONDS (25.4-37.6)
[2019-01-13 20:40] LABS: BLOOD UREA NITROGEN 15 MG/DL (7-18); CALCIUM LEVEL 8.5 MG/DL (8.5-10.1); CARBON DIOXIDE LEVEL 30 MEQ/L (21-32); CHLORIDE LEVEL 105 MEQ/L (98-107); CK-MB VALUE MASS < 1.0 NG/ML (<3.6); CPK CREATINE PHOSPHOKINASE 93 U/L (26-192); CREATININE FOR GFR 0.74 MG/DL (0.55-1.30); GLOMERULAR FILTRATION RATE > 60.0 (>60); GLUCOSE, FASTING 97 MG/DL (70-100); MB/CK RELATIVE INDEX 1.08 (< OR =4); SODIUM LEVEL 141 MEQ/L (136-145); TROPONIN I < 0.02 NG/ML (< 0.10)
[2019-01-13] MEDS ORDERED: ISOVUE-370 76% 100ML VIAL (Q9967) As Ordered ONE (22:14)
--- NOTE | 2019-01-13 22:43 | REPVR ---
EXAM: CT Angiography Chest With Contrast EXAM DATE/TIME: 01/13/2019 10:27 PM CLINICAL HISTORY: 38 years old, female; Pain; Chest pain; Additional info: Cp TECHNIQUE: Axial computed tomographic angiography images of the chest with intravenous contrast using CT angiography protocol. All CT scans at this facility use at least one of these dose optimization techniques: automated exposure control; mA and/or kV adjustment per patient size (includes targeted exams where dose is matched to clinical indication); or iterative reconstruction. Coronal and sagittal reformatted images were created and reviewed. MIP reconstructed images were created and reviewed. Technologist notes: Facility exam id and description: CT. [place] CT angio chest CONTRAST: Contrast Material: 75 ml of ISOVUE 370; Contrast Route: IV COMPARISON: CT ANGIO CHEST 08/15/2018 5:46 PM FINDINGS: Pulmonary arteries: The main pulmonary artery measures 22 mm. No pulmonary embolism is identified. Aorta: The ascending thoracic aorta measures 34 mm. Lungs: Minimal patchy ground glass infiltrates and minimal fibro-atelectatic change. Pleural space: Normal. No pneumothorax. No pleural effusion. Heart: Normal. No cardiomegaly. No pericardial effusion. Gallbladder and bile ducts: The gallbladder is contracted with no stones. Lymph nodes: Unremarkable. No enlarged lymph nodes. Bones/joints: Unremarkable. No acute fracture. Soft tissues: Unremarkable. IMPRESSION: 1. Minimal patchy ground glass infiltrates and minimal fibro-atelectatic change which is a similar appearance to 08/15/2018. 2. Otherwise negative CTA chest. No interval pulmonary embolism is identified. Electronically signed by: Jose Antonio Isbell On 01/13/2019 22:43:01 PM
[2019-01-13 22:45] VITALS: BP 116/55
[2019-01-13] MEDS ORDERED: traMADol 50 MG TAB (BULK 4 TAB ED) PO ONE (23:00)
--- NOTE | 2019-01-14 06:41 | ECGEPIP ---
Stationary ECG Study [facility] - ED Test Date: 2019-01-13 Pat Name: SCOTT SENIOR Department: Room: - Gender: F Precision Millwright: ct : 1980 Requested By: Carlos Rose Order Number: [id number] Reading MD: Carlos Reardon Measurements Intervals [place] Rate: 50 P: 14 MO: 169 QRS: 25 QRSD: 108 T: 36 QT: 415 QTc: 381 Interpretive Statements SINUS BRADYCARDIA MODERATE T-WAVE ABNORMALITY, CONSIDER ANTERIOR ISCHEMIA Electronically Signed On 01-14-2019 6:41:22 EST by Carlos Reardon
--- NOTE | 2019-01-19 19:29 | ED PDOC ---
Post-Departure Follow-Up dr clemons faxed formal repor tof cta chest for fu Holli Allison MD Jan 19, 2019 19:29
== END 2019-01-13 23:15 | disposition home or self-care (01) ==
LOC: M ED 18:18
DX: M94.0 Chondrocostal junction syndrome [Tietze] (principal); E78.5 Hyperlipidemia, unspecified; F31.9 Bipolar disorder, unspecified; D64.9 Anemia, unspecified; J45.909 Unspecified asthma, uncomplicated; K21.9 Gastro-esophageal reflux disease without esophagitis; Z88.8 Allergy status to other drugs, medicaments and biological substances; Z88.6 Allergy status to analgesic agent; Z91.048 Other nonmedicinal substance allergy status; Z79.899 Other long term (current) drug therapy; Z79.51 Long term (current) use of inhaled steroids
CPT/HCPCS: 71275; 80048; 82550; 82553; 84484; 85025; 85610; 85730; 93005; 99285; Q9967

== ENCOUNTER 2019-02-02 22:19 | Emergency (ER) | payer MEDICAID, MEDICARE ==
[~2019-02-02] VITALS: Ht 157.5 cm; Wt 99.6 kg
[2019-02-02 22:20] VITALS: BP 140/81
[2019-02-02] MEDS ORDERED: OMEP40CA2 (22:27)
[2019-02-02] MEDS ORDERED: SUMA25TA3 PO (22:27)
[2019-02-02] MEDS ORDERED: TRAZ-163 (22:27)
[2019-02-02] MEDS ORDERED: NYST10OI (22:27)
[2019-02-02 23:26] LABS: INFLUENZA A AMPLIFICATION NEGATIVE (NEGATIVE); INFLUENZA B AMPLIFICATION NEGATIVE (NEGATIVE)
[2019-02-02] MEDS ORDERED: TESS100C PO (23:55)
== END 2019-02-03 | disposition home or self-care (01) ==
LOC: M ED 22:19
DX: J06.9 Acute upper respiratory infection, unspecified (principal); J45.909 Unspecified asthma, uncomplicated; E78.5 Hyperlipidemia, unspecified; K21.9 Gastro-esophageal reflux disease without esophagitis; D64.9 Anemia, unspecified; F31.9 Bipolar disorder, unspecified; Z79.899 Other long term (current) drug therapy; Z88.8 Allergy status to other drugs, medicaments and biological substances

== ENCOUNTER → 2019-03-05 | Outpatient (REF) | payer MEDICARE, MEDICAID ==
[~2019-03-05] MED LIST changes: +HYDR-3715 PO; -NORCOTAB PO; +NYST10OI; +OMEP40CA2; +SUMA25TA3 PO; +TRAZ-163
[2019-03-05 18:21] LABS: BASO % 0.7 % (0.0-1.0); EOS # 0.1 10^3/uL (0.0-0.50); EOS % 2.2 % (0.0-3.0); HEMATOCRIT 43.1 % (36.0-47.0); HEMOGLOBIN 14.1 g/dl (12.0-15.5); LYMPH # 1.8 10^3/uL (1.5-4.5); LYMPH % 39.1 % (24.0-44.0); MEAN CORPUSCULAR HEMOGLOBIN 29.9 pg (27.0-33.0); MEAN CORPUSCULAR HGB CONC 32.7 g/dl (32.0-36.5); MEAN CORPUSCULAR VOLUME 91.3 fl (80.0-96.0); MONO # 0.3 10^3/uL (0.0-0.8); MONO % 6.8 % (0.0-5.0); NEUTROPHILS # 2.3 10^3/uL (1.8-7.7); PLATELET COUNT, AUTOMATED 224 10^3/uL (150-450); RED BLOOD COUNT 4.72 10^6/uL (4.00-5.40); WHITE BLOOD COUNT 4.5 10^3/uL (4.0-10.0)
[2019-03-05 18:22] LABS: ALBUMIN 3.9 GM/DL (3.2-5.2); ALT/SGPT 20 U/L (12-78); BILIRUBIN,TOTAL 0.5 MG/DL (0.2-1.0); BLOOD UREA NITROGEN 14 MG/DL (7-18); CALCIUM LEVEL 8.8 MG/DL (8.5-10.1); CARBON DIOXIDE LEVEL 29 MEQ/L (21-32); CHLORIDE LEVEL 107 MEQ/L (98-107); CHOLESTEROL LEVEL 166 MG/DL (<200); CHOLESTEROL RISK RATIO 3.192 (<5); CREATININE FOR GFR 0.74 MG/DL (0.55-1.30); FERRITIN 98 NG/ML (8-252); GLOMERULAR FILTRATION RATE > 60.0 (>60); GLUCOSE, FASTING 92 MG/DL (70-100); HDL CHOLESTEROL 52 MG/DL (>40); IRON (FE) 99 UG/DL (50-170); LDL CHOLESTEROL 76 MG/DL (<100); NON-HDL-C 114 MG/DL; SODIUM LEVEL 141 MEQ/L (136-145); TOTAL PROTEIN 7.5 GM/DL (6.4-8.2); TRIGLYCERIDES LEVEL 188 MG/DL (<150)
[2019-03-05 18:24] LABS: FOLATE 8.7 NG/ML (>5.4); TOTAL 25(OH) VITAMIN D 23.7 NG/ML (30.0-100.0); VITAMIN B12 LEVEL 606 PG/ML (247-911)
[2019-03-05 19:05] LABS: HEMOGLOBIN A1c 5.8 %
== END ==
LOC: M LAB REF 16:41
PROVIDERS: ATTEND Nurse Practitioner Family
DX: E78.5 Hyperlipidemia, unspecified (principal); D64.9 Anemia, unspecified; Z13.9 Encounter for screening, unspecified

== ENCOUNTER 2019-03-08 20:03 | Emergency (ER) | payer MEDICAID, MEDICARE ==
[~2019-03-08] VITALS: Ht 157.5 cm; Wt 101.2 kg
[2019-03-08] MEDS ORDERED: HYDROCORTISONE 1% CREAM 30 GM TOP ONE (20:45)
[2019-03-08] MEDS ORDERED: DEBR6.5S4 OTIC (21:25)
[2019-03-08 21:30] VITALS: BP 127/66
--- NOTE | 2019-03-09 09:36 | REP ---
Left ankle series: Four views. History: Left lateral ankle and foot pain. No injury. Findings: Ankle mortise is intact. Four views left ankle demonstrate plantar calcaneal spurring. Bones, joints, and soft tissues are otherwise unremarkable. Impression: Large plantar heel spur. Otherwise negative left ankle radiographs. Electronically Signed by Lebron Curtis MD 03/09/2019 07:43 A
--- NOTE | 2019-03-09 09:36 | REP ---
Left foot series: Four views. History: Left lateral ankle and foot pain. No injury. Comparison left foot radiographs are from July 15, 2018. Findings: There is a large plantar calcaneal spur noted unchanged. There is a small subcortical cyst in the distal end of the fifth metatarsal which is also unchanged. No acute bony abnormality is seen. Accessory navicular ossicles are seen. Impression: No acute bony abnormality. Electronically Signed by Lebron Curtis MD 03/09/2019 07:44 A
== END 2019-03-08 21:37 | disposition home or self-care (01) ==
LOC: M ED 20:03
DX: L25.9 Unspecified contact dermatitis, unspecified cause (principal); M79.672 Pain in left foot; H61.23 Impacted cerumen, bilateral; J45.909 Unspecified asthma, uncomplicated; D64.9 Anemia, unspecified; F41.9 Anxiety disorder, unspecified; Z79.899 Other long term (current) drug therapy; Z88.8 Allergy status to other drugs, medicaments and biological substances; Z91.048 Other nonmedicinal substance allergy status

== ENCOUNTER 2019-04-07 13:11 | Emergency (ER) | payer MEDICARE, MEDICAID ==
[~2019-04-07] VITALS: Ht 157.5 cm; Wt 91.8 kg
[2019-04-07] MEDS ORDERED: PENI500T PO (14:23)
[2019-04-07] MEDS ORDERED: TRAM50TA2 PO (14:23)
[2019-04-07 14:28] VITALS: BP 125/79
== END 2019-04-07 14:27 | disposition home or self-care (01) ==
LOC: M ED 13:11
DX: J05.10 Acute epiglottitis without obstruction (principal); J45.909 Unspecified asthma, uncomplicated; D64.9 Anemia, unspecified; Z79.899 Other long term (current) drug therapy; Z88.8 Allergy status to other drugs, medicaments and biological substances; Z91.048 Other nonmedicinal substance allergy status

== ENCOUNTER → 2019-04-28 | Outpatient (REF) | payer MEDICARE ==
[~2019-04-28] MED LIST changes: +TRAM50TA2 PO; -TRAZ-160; +TRAZ-252
[2019-04-28 14:11] LABS: BASO % 0.4 % (0.0-1.0); EOS # 0.1 10^3/uL (0.0-0.50); EOS % 2.2 % (0.0-3.0); HEMATOCRIT 42.7 % (36.0-47.0); HEMOGLOBIN 13.7 g/dl (12.0-15.5); LYMPH # 1.9 10^3/uL (1.5-4.5); LYMPH % 41.5 % (24.0-44.0); MEAN CORPUSCULAR HEMOGLOBIN 30.6 pg (27.0-33.0); MEAN CORPUSCULAR HGB CONC 32.1 g/dl (32.0-36.5); MEAN CORPUSCULAR VOLUME 95.3 fl (80.0-96.0); MONO # 0.4 10^3/uL (0.0-0.8); MONO % 9.5 % (0.0-5.0); NEUTROPHILS # 2.1 10^3/uL (1.8-7.7); NEUTROPHILS % 46.2 % (36.0-66.0); PLATELET COUNT, AUTOMATED 221 10^3/uL (150-450); RED BLOOD COUNT 4.48 10^6/uL (4.00-5.40); WHITE BLOOD COUNT 4.6 10^3/uL (4.0-10.0)
[2019-04-28 14:17] LABS: ALBUMIN 3.9 GM/DL (3.2-5.2); ALT/SGPT 26 U/L (12-78); BILIRUBIN,TOTAL 0.5 MG/DL (0.2-1.0); BLOOD UREA NITROGEN 13 MG/DL (7-18); CALCIUM LEVEL 9.2 MG/DL (8.5-10.1); CARBON DIOXIDE LEVEL 30 MEQ/L (21-32); CHLORIDE LEVEL 109 MEQ/L (98-107); CREATININE FOR GFR 0.67 MG/DL (0.55-1.30); GLOMERULAR FILTRATION RATE > 60.0 (>60); GLUCOSE, FASTING 99 MG/DL (70-100); POTASSIUM SERUM 4.3 MEQ/L (3.5-5.1); SODIUM LEVEL 144 MEQ/L (136-145); TOTAL PROTEIN 7.4 GM/DL (6.4-8.2)
== END ==
LOC: M LAB REF 13:13
PROVIDERS: ATTEND Nurse Practitioner Family
DX: Z13.9 Encounter for screening, unspecified (principal)

== ENCOUNTER 2019-05-19 10:00 | Outpatient (RCR) | payer MEDICARE, MEDICAID ==
[~2019-05-19 10:00] MED LIST changes: +ACET-683 PO; +ACET1TAB16 PO; +CEFD1CAP8 PO; +DEXI30CA2 PO; +HYDR-3713 PO; +METO25TA4 PO; +NAPR-885 PO; -OMEP40CA2; +OMEP40CA2 PO
[2019-05-20] MEDS ORDERED: HYDR-3713 PO (09:13)
== END 2019-05-24 ==
LOC: M PT 10:00
PROVIDERS: ATTEND Physician Assistant Medical
DX: M54.2 Cervicalgia (principal)
CPT/HCPCS: 97140; 97162; G0283

== ENCOUNTER 2019-05-20 07:33 | Day surgery (SDC) | payer MEDICARE, MEDICAID ==
[~2019-05-20] VITALS: Ht 157.5 cm; Wt 101.1 kg
[2019-05-20] MEDS ORDERED: KETOROLAC 60 MG/2 ML VIAL (J1885) As Ordered ONE (07:40)
[2019-05-20] MEDS ORDERED: ONDANSETRON 4MG/2ML VIAL (J2405) As Ordered ONE (07:40)
[2019-05-20] MEDS ORDERED: fentaNYL 100 MCG/2 ML INJECTION (J3010) As Ordered ONE (07:40)
[2019-05-20] MEDS ORDERED: PROPOFOL 200 MG/20 ML VIAL As Ordered ONE (07:40)
[2019-05-20] MEDS ORDERED: MIDAZOLAM INJ 2 MG/2 ML VIAL (J2250) As Ordered ONE (07:40)
[2019-05-20] MEDS ORDERED: LIDOCAINE 2% INJ 100 MG/5 ML SDV (FOR ANES.) As Ordered ONE (07:40)
[2019-05-20] MEDS ORDERED: ceFAZolin 2 GM/D5W 50 ML IV BAG (J0690 PER 500MG) As Ordered ONE (08:00)
[2019-05-20] MEDS ORDERED: LIDOCAINE 2% MDV 20 ML VIAL As Ordered ONE (08:07)
[2019-05-20] MEDS ORDERED: BUPIVACAINE HCL 0.5% 10 ML VIAL As Ordered ONE (08:07)
[2019-05-20] MEDS ORDERED: dexameTHASONE 4 MG/ML 1ML VIAL (J1100) As Ordered ONE (08:07)
[2019-05-20] MEDS ORDERED: LR 1,000 ML IV ONE (08:15)
[2019-05-20] MEDS ORDERED: HYDR-3713 PO (09:13)
[2019-05-20 09:35] VITALS: BP 131/91
[2019-05-20] MEDS ORDERED: LR 1,000 ML IV SCH (10:00)
[2019-05-20] MEDS ORDERED: fentaNYL 100 MCG/2 ML INJECTION (J3010) IV PRN (10:00)
[2019-05-20] MEDS ORDERED: oxyCODONE 5MG TAB PO PRN (10:00)
[2019-05-20] MEDS ORDERED: PROMETHAZINE INJ 25 MG/ML VIAL (J2550) IV PRN (10:00)
[2019-05-20] MEDS ORDERED: METOCLOPRAMIDE INJ 10MG/2ML VIAL (J2765) IV PRN (10:00)
--- NOTE | 2019-05-20 11:45 | RO ---
DATE OF PROCEDURE: 05/20/2019 PREPROCEDURE DIAGNOSIS: Left foot plantar fasciitis. POSTPROCEDURE DIAGNOSIS: Left foot plantar fasciitis. PROCEDURE: Left foot endoscopic plantar fascial release. SURGEON: Jean Paul Siegel DPM CAFETERIA CLERK: ANESTHESIA: Monitored anesthesia care, preoperative injection of 15 mL of 1:1 mixture of 1% Lidocaine and 0.5% Marcaine plain. ESTIMATED BLOOD LOSS: Minimal. MATERIALS: 4-0 nylon. INJECTABLES: 8 mL of Lidocaine and 1 mL of Decadron 4 mg/mL. COMPLICATIONS: None. CONDITION: Stable. Trish Carvajal is a 38-year-old female who presented to [facility] with complaints of chronic plantar fasciitis. She presents today for surgical correction. Patient side and site were identified and marked in the preoperative holding area. Consent was reviewed and obtained. Complications and alternatives to the procedure were explained to the patient in details and all questions were answered. DESCRIPTION OF PROCEDURE: The patient was brought to the operating room and placed on the operating room table in the supine position, monitored anesthesia care was delivered by the anesthesia team. Preoperative injection of 15 mL of 1:1 mixture of 1% Lidocaine and 0.5% Marcaine plain were injected into the left foot. Additional 8 mL of 1% Lidocaine plain was injected as well. Tourniquet was inflated to 225 mmHg. Medial incision at the heel was made using a #15 blade. Hemostat was used to find the inferior margin of the plantar fascia and the trocar was inserted. The cannula was placed through the medial portal, lateral portal was created. The trocar was removed, leaving the cannula in place. The camera was inserted through the lateral portal and the plantar fascia was visualized. It was under tension. The plantar fascia was released from the medial two-thirds, leaving the lateral one-third intact. The site was irrigated with normal saline. Incision was repaired with 4-0 nylon. 1 mL of Decadron was injected. Sterile dressings were applied. Tourniquet was deflated. The patient was brought to the postanesthesia care unit (PACU), stable and neurovascular status intact. She will be partial weight bearing. She will followup in the office in 2 days.
== END 2019-05-20 10:05 | disposition home or self-care (01) ==
LOC: M SDC 07:33
PROVIDERS: ATTEND Podiatrist Foot & Ankle Surgery
DX: M72.2 Plantar fascial fibromatosis (principal); I10 Essential (primary) hypertension; E78.5 Hyperlipidemia, unspecified; K21.9 Gastro-esophageal reflux disease without esophagitis; D64.9 Anemia, unspecified; F32.9 Major depressive disorder, single episode, unspecified; F41.9 Anxiety disorder, unspecified; J45.909 Unspecified asthma, uncomplicated; Z88.8 Allergy status to other drugs, medicaments and biological substances; Z79.899 Other long term (current) drug therapy; Z79.51 Long term (current) use of inhaled steroids
CPT/HCPCS: 29893; J0690; J1100; J1885; J2250; J2405; J3010

== ENCOUNTER 2019-06-11 11:31 | Outpatient (RCR) | payer MEDICARE, MEDICAID ==
[~2019-06-11 11:31] MED LIST changes: -OMEP20CA3 PO; +OMEP20CA4 PO
== END 2019-06-24 ==
LOC: M PT 11:31
PROVIDERS: ATTEND Physician Assistant Medical
DX: Z47.89 Encounter for other orthopedic aftercare (principal); M54.2 Cervicalgia
CPT/HCPCS: 97140; G0283

== ENCOUNTER 2019-07-01 19:50 | Emergency (ER) | payer MEDICARE, MEDICAID ==
[~2019-07-01] VITALS: Ht 157.5 cm; Wt 100.7 kg
[~2019-07-01 19:50] MED LIST changes: +OMEP1CAP73 PO; -OMEP20CA4 PO; -OMEP40CA2 PO; +OMEP40CA97 PO; -TRAZ-163; +TRAZ-257
[2019-07-02 00:10] VITALS: BP 145/87
--- NOTE | 2019-07-02 02:21 | REP ---
Clinical: Plantar pain Technique: AP, lateral, bilateral oblique views left foot . Findings: The osseous structures and joint spaces are intact and normal. Lateral view demonstrates moderate calcaneal heal spur without associated soft tissue calcifications or significant swelling. There is no evidence for acute fracture or dislocation. Surrounding soft tissues are unremarkable. No subcutaneous emphysema or radiodense foreign body. Impression: Moderate calcaneal heal spur. Electronically Signed by Perez Downing MD 07/02/2019 02:13 A
== END 2019-07-02 00:12 | disposition home or self-care (01) ==
LOC: M ED 19:50
DX: M77.32 Calcaneal spur, left foot (principal); Z79.899 Other long term (current) drug therapy; Z88.8 Allergy status to other drugs, medicaments and biological substances; Z91.018 Allergy to other foods; F17.210 Nicotine dependence, cigarettes, uncomplicated

== ENCOUNTER 2019-08-12 15:36 | Emergency (ER) | payer MEDICARE, MEDICAID ==
[~2019-08-12] VITALS: Ht 157.5 cm; Wt 100.6 kg
[2019-08-12] MEDS ORDERED: GUAI100L6 PO (18:05)
[2019-08-12 18:07] VITALS: BP 144/80
--- NOTE | 2019-08-12 18:22 | REP ---
REASON: Cough and dyspnea. FINDINGS: The superior mediastinal structures are midline. The cardiac silhouette is unremarkable in size, shape, and position. The diaphragmatic surfaces of the lungs are regular, and the costophrenic angles are clear. The pulmonary aguirre are clear. The imaged osseous structures are intact. IMPRESSION: There is no acute cardiopulmonary disease. Electronically Signed by Reynaldo Peters DO 08/12/2019 07:14 P
--- NOTE | 2019-08-13 21:30 | ECGEPIP ---
[facility] - ED Test Date: 2019-08-12 Pat Name: SCOTT SENIOR Department: Room: - Gender: Female Commodities Clerk: : 1980 Requested By: CHIRAG Beth Order Number: [id number] Reading MD: Erika Jacinto Measurements Intervals [place] Rate: 62 P: 19 [place]: 166 QRS: 4 QRSD: 112 T: 30 QT: 416 QTc: 424 Interpretive Statements SINUS RHYTHM MODERATE INTRAVENTRICULAR CONDUCTION DELAY INCREASED RATE 01/13/19 Electronically Signed on 08-13-2019 21:30:02 EDT by Erika Jacinto
== END 2019-08-12 18:15 | disposition home or self-care (01) ==
LOC: M ED 15:36
DX: J06.9 Acute upper respiratory infection, unspecified (principal); Z88.6 Allergy status to analgesic agent; Z91.048 Other nonmedicinal substance allergy status; F31.9 Bipolar disorder, unspecified

== ENCOUNTER 2019-08-24 13:35 | Emergency (ER) | payer MEDICARE, MEDICAID ==
[~2019-08-24] VITALS: Ht 157.5 cm; Wt 100.6 kg
[~2019-08-24 13:35] MED LIST changes: +GUAI100L6 PO; -OMEP1CAP73 PO; +OMEP20CA4 PO; +OMEP40CA2 PO; -OMEP40CA97 PO; +TRAZ-163; -TRAZ-257
--- NOTE | 2019-08-24 14:24 | REP ---
RIGHT ANKLE, FIVE VIEWS: There is no evidence of an acute fracture, dislocation or intrinsic bone disease. There is moderate inferior calcaneal spurring. IMPRESSION: No fracture or dislocation. Electronically Signed by Nathan Mederos MD 08/24/2019 04:37 P
[2019-08-24] MEDS ORDERED: BENA25CA4 PO (14:42)
[2019-08-24] MEDS ORDERED: HYDR25OIN TOP (14:42)
[2019-08-24 14:58] VITALS: BP 133/82
== END 2019-08-24 15:02 | disposition home or self-care (01) ==
LOC: M ED 13:35
DX: L25.9 Unspecified contact dermatitis, unspecified cause (principal); S93.491A Sprain of other ligament of right ankle, initial encounter; X50.9XXA Other and unspecified overexertion or strenuous movements or postures, initial encounter; Y92.89 Other specified places as the place of occurrence of the external cause; Y93.89 Activity, other specified; Z88.8 Allergy status to other drugs, medicaments and biological substances; Z91.02 Food additives allergy status; Z79.899 Other long term (current) drug therapy

== ENCOUNTER 2019-09-03 11:57 | Emergency (ER) | payer MEDICARE, MEDICAID ==
[~2019-09-03] VITALS: Ht 157.5 cm; Wt 102.4 kg
[~2019-09-03 11:57] MED LIST changes: +BENA25CA4 PO; +HYDR25OIN TOP
[2019-09-03] MEDS ORDERED: ACETAMINOPHEN 325 MG TAB PO ONE (12:45)
--- NOTE | 2019-09-03 13:33 | REP ---
Left foot: Four views. History: Lateral foot pain. History of bone spur, status post surgery. Findings: Four views of the left foot demonstrate plantar calcaneal spurring. Bones, joints, and soft tissues are otherwise radiographically unremarkable. No fracture or subluxation is seen. Impression: No fracture noted. Plantar heel spur. Findings unchanged from July 01, 2019. Electronically Signed by Lebron Curtis MD 09/03/2019 01:26 P
[2019-09-03 14:01] VITALS: BP 138/84
== END 2019-09-03 14:05 | disposition home or self-care (01) ==
LOC: M ED 11:57
DX: M77.32 Calcaneal spur, left foot (principal); R51 Headache; G89.29 Other chronic pain; M54.9 Dorsalgia, unspecified; Z87.42 Personal history of other diseases of the female genital tract; Z79.899 Other long term (current) drug therapy; Z88.6 Allergy status to analgesic agent; Z88.8 Allergy status to other drugs, medicaments and biological substances; Z91.89 Other specified personal risk factors, not elsewhere classified

== ENCOUNTER 2019-11-21 16:48 | Emergency (ER) | payer MEDICARE, MEDICAID ==
[~2019-11-21] VITALS: Ht 157.5 cm; Wt 99.7 kg
[2019-11-21 16:48] VITALS: BP 122/75
[~2019-11-21 16:48] MED LIST changes: +OMEP-172 PO; -OMEP20CA4 PO; -OMEP40CA2 PO; +OMEP40CA97 PO
--- NOTE | 2019-11-21 17:23 | REP ---
Clinical: Trauma. Technique: AP, lateral, bilateral oblique views left third digit . Findings: The osseous structures and joint spaces are intact and normal. There is no evidence for acute fracture or dislocation. Surrounding soft tissues are unremarkable. No subcutaneous emphysema or radiodense foreign body. Impression: No obvious acute fracture or dislocation. Electronically Signed by Perez Downing MD 11/21/2019 05:14 P
== END 2019-11-21 17:39 | disposition home or self-care (01) ==
LOC: M ED 16:48
DX: S63.633A Sprain of interphalangeal joint of left middle finger, initial encounter (principal); X58.XXXA Exposure to other specified factors, initial encounter; Y92.099 Unspecified place in other non-institutional residence as the place of occurrence of the external cause; Y93.9 Activity, unspecified; Y99.9 Unspecified external cause status; I10 Essential (primary) hypertension; R51 Headache; J45.909 Unspecified asthma, uncomplicated; K21.9 Gastro-esophageal reflux disease without esophagitis; D64.9 Anemia, unspecified; M54.9 Dorsalgia, unspecified; F41.9 Anxiety disorder, unspecified; F31.89 Other bipolar disorder; Z79.899 Other long term (current) drug therapy; Z88.6 Allergy status to analgesic agent; Z88.8 Allergy status to other drugs, medicaments and biological substances; Z91.018 Allergy to other foods

== ENCOUNTER → 2019-12-01 | Outpatient (CLI) | payer MEDICARE ==
[2019-12-01 09:25] LABS: BASO % 0.6 % (0.0-1.0); EOS # 0.2 10^3/uL (0.0-0.5); EOS % 3.5 % (0.0-3.0); HEMATOCRIT 41.7 % (36.0-47.0); HEMOGLOBIN 13.5 g/dl (12.0-15.5); LYMPH # 2.7 10^3/uL (1.5-5.0); LYMPH % 42.6 % (24.0-44.0); MEAN CORPUSCULAR HEMOGLOBIN 29.7 pg (27.0-33.0); MEAN CORPUSCULAR HGB CONC 32.4 g/dl (32.0-36.5); MEAN CORPUSCULAR VOLUME 91.6 fl (80.0-96.0); MONO # 0.6 10^3/uL (0.0-0.8); MONO % 8.8 % (0.0-5.0); NEUTROPHILS # 2.8 10^3/uL (1.5-8.5); NEUTROPHILS % 44.3 % (36.0-66.0); PLATELET COUNT, AUTOMATED 270 10^3/uL (150-450); RED BLOOD COUNT 4.55 10^6/uL (4.00-5.40); WHITE BLOOD COUNT 6.3 10^3/uL (4.0-10.0)
[2019-12-01 09:41] LABS: HEMOGLOBIN A1c 5.7 %
[2019-12-01 10:20] LABS: ALBUMIN 3.5 GM/DL (3.2-5.2); ALT/SGPT 14 U/L (12-78); BILIRUBIN,TOTAL 0.3 MG/DL (0.2-1.0); BLOOD UREA NITROGEN 20 MG/DL (7-18); CARBON DIOXIDE LEVEL 25 MEQ/L (21-32); CHLORIDE LEVEL 104 MEQ/L (98-107); CHOLESTEROL LEVEL 226 MG/DL (<200); CHOLESTEROL RISK RATIO 5.136 (<5); CREATININE FOR GFR 0.76 MG/DL (0.55-1.30); GLOMERULAR FILTRATION RATE > 60.0 (>60); GLUCOSE, FASTING 100 MG/DL (70-100); HDL CHOLESTEROL 44 MG/DL (>40); LDL CHOLESTEROL 139 MG/DL (<100); NON-HDL-C 182 MG/DL; POTASSIUM SERUM 4.1 MEQ/L (3.5-5.1); SODIUM LEVEL 140 MEQ/L (136-145); TOTAL 25(OH) VITAMIN D 22.2 NG/ML (30.0-100.0); TOTAL PROTEIN 7.2 GM/DL (6.4-8.2); TRIGLYCERIDES LEVEL 216 MG/DL (<150)
== END ==
LOC: M LAB 08:36
PROVIDERS: ATTEND Nurse Practitioner Family
DX: I10 Essential (primary) hypertension (principal); E78.5 Hyperlipidemia, unspecified; R73.03 Prediabetes; E55.9 Vitamin D deficiency, unspecified

== ENCOUNTER 2020-01-27 19:47 | Emergency (ER) | payer MEDICARE ==
[~2020-01-27] VITALS: Ht 152.4 cm; Wt 106.1 kg
[~2020-01-27 19:47] MED LIST changes: -OMEP-172 PO; +OMEP1CAP73 PO; -TRAZ-163; +TRAZ-257
[2020-01-27 23:35] VITALS: BP 133/71
--- NOTE | 2020-01-28 07:58 | REP ---
Right foot: Four views. History: Trauma. Findings: Four views right foot demonstrate normal bones, joints, and soft tissues. No fracture or subluxation is seen. There is a os naviculare. Plantar calcaneal spurring is noted. Impression: No traumatic abnormality noted. Plantar heel spur. Otherwise negative. Electronically Signed by Lebron Curtis MD 01/28/2020 07:50 A
== END 2020-01-27 23:37 | disposition home or self-care (01) ==
LOC: M ED 19:47
DX: M67.471 Ganglion, right ankle and foot (principal); S90.31XA Contusion of right foot, initial encounter; W20.8XXA Other cause of strike by thrown, projected or falling object, initial encounter; Y92.099 Unspecified place in other non-institutional residence as the place of occurrence of the external cause; Y93.9 Activity, unspecified; Y99.9 Unspecified external cause status; M77.31 Calcaneal spur, right foot; Z79.899 Other long term (current) drug therapy; Z88.6 Allergy status to analgesic agent; Z88.8 Allergy status to other drugs, medicaments and biological substances; Z91.02 Food additives allergy status

== ENCOUNTER → 2020-02-15 | Outpatient (REF) | payer MEDICARE ==
[~2020-02-15] MED LIST changes: +EQ A1CRE3 TOP; -TERB1CRE12 TOP
[2020-02-15 16:54] LABS: BASO % 0.4 % (0.0-1.0); EOS # 0.2 10^3/uL (0.0-0.5); EOS % 2.6 % (0.0-3.0); HEMATOCRIT 44.2 % (36.0-47.0); HEMOGLOBIN 14.4 g/dl (12.0-15.5); LYMPH # 2.9 10^3/uL (1.5-5.0); LYMPH % 39.6 % (24.0-44.0); MEAN CORPUSCULAR HEMOGLOBIN 29.8 pg (27.0-33.0); MEAN CORPUSCULAR HGB CONC 32.6 g/dl (32.0-36.5); MEAN CORPUSCULAR VOLUME 91.5 fl (80.0-96.0); MONO # 0.5 10^3/uL (0.0-0.8); MONO % 7.3 % (0.0-5.0); NEUTROPHILS # 3.7 10^3/uL (1.5-8.5); NEUTROPHILS % 49.8 % (36.0-66.0); PLATELET COUNT, AUTOMATED 287 10^3/uL (150-450); RED BLOOD COUNT 4.83 10^6/uL (4.00-5.40); WHITE BLOOD COUNT 7.4 10^3/uL (4.0-10.0)
[2020-02-15 17:08] LABS: HEMOGLOBIN A1c 5.9 %
== END ==
LOC: M LAB REF 16:29
PROVIDERS: ATTEND Nurse Practitioner Family
DX: E78.5 Hyperlipidemia, unspecified (principal); E66.01 Morbid (severe) obesity due to excess calories; Z13.9 Encounter for screening, unspecified; R73.01 Impaired fasting glucose

== ENCOUNTER 2020-03-04 21:25 | Emergency (ER) | payer MEDICARE ==
[~2020-03-04] VITALS: Ht 157.5 cm; Wt 106.7 kg
[2020-03-04 21:50] LABS: BASO % 0.3 % (0.0-1.0); EOS # 0.1 10^3/uL (0.0-0.5); EOS % 1.9 % (0.0-3.0); HEMATOCRIT 42.4 % (36.0-47.0); HEMOGLOBIN 13.9 g/dl (12.0-15.5); LYMPH # 1.9 10^3/uL (1.5-5.0); MEAN CORPUSCULAR HGB CONC 32.8 g/dl (32.0-36.5); MEAN CORPUSCULAR VOLUME 88.5 fl (80.0-96.0); MONO # 0.4 10^3/uL (0.0-0.8); MONO % 7.1 % (0.0-5.0); NEUTROPHILS # 3.3 10^3/uL (1.5-8.5); NEUTROPHILS % 57.5 % (36.0-66.0); PLATELET COUNT, AUTOMATED 291 10^3/uL (150-450); RED BLOOD COUNT 4.79 10^6/uL (4.00-5.40); WHITE BLOOD COUNT 5.8 10^3/uL (4.0-10.0)
[2020-03-04] MEDS ORDERED: AMOX500C PO (21:51)
[2020-03-04] MEDS ORDERED: HYDR-3713 PO (21:51)
[2020-03-04] MEDS ORDERED: OMEP-221 PO (21:51)
[2020-03-04 22:01] LABS: INR 1.05; PARTIAL THROMBOPLASTIN TIME 28.9 SECONDS (25.0-38.4); PROTHROMBIN TIME 13.4 SECONDS (11.8-14.0)
[2020-03-04] MEDS ORDERED: NS 1,000 ML IV ONE (22:15)
[2020-03-04 22:19] LABS: BLOOD UREA NITROGEN 15 MG/DL (7-18); CALCIUM LEVEL 8.8 MG/DL (8.5-10.1); CARBON DIOXIDE LEVEL 29 MEQ/L (21-32); CHLORIDE LEVEL 106 MEQ/L (98-107); CK-MB VALUE MASS < 1.0 NG/ML (<3.6); CPK CREATINE PHOSPHOKINASE 81 U/L (26-192); CREATININE FOR GFR 0.88 MG/DL (0.55-1.30); GLOMERULAR FILTRATION RATE > 60.0 (>60); GLUCOSE, FASTING 144 MG/DL (70-100); MB/CK RELATIVE INDEX 1.23 (< OR =4); POTASSIUM SERUM 3.7 MEQ/L (3.5-5.1); SODIUM LEVEL 140 MEQ/L (136-145); TROPONIN I < 0.02 NG/ML (< 0.10)
[2020-03-04] MEDS ORDERED: ISOVUE-370 76% 100ML VIAL (Q9967) As Ordered ONE (22:29)
--- NOTE | 2020-03-04 22:56 | REPVR ---
PROCEDURE INFORMATION: Exam: CT Angiography Chest With Contrast Exam date and time: 03/04/2020 10:35 PM Age: 39 years old Clinical indication: Dyspnea; Additional info: Dysp TECHNIQUE: Imaging protocol: Computed tomographic angiography of the chest with intravenous contrast. 3D rendering: MIP and/or 3D reconstructed images were created by the technologist. Radiation optimization: All CT scans at this facility use at least one of these dose optimization techniques: automated exposure control; mA and/or kV adjustment per patient size (includes targeted exams where dose is matched to clinical indication); or iterative reconstruction. Contrast material: ISOVUE 370; Contrast volume: 75 ml; Contrast route: IV; COMPARISON: CT ANGIO CHEST 01/13/2019 10:13 PM FINDINGS: Pulmonary arteries: Normal. No pulmonary emboli. Aorta: Unremarkable. No aortic aneurysm. No aortic dissection. Lungs: There are some persistent areas of air trapping in both lungs. Mild basilar atelectasis. There are ill-defined areas of ground-glass attenuation, primarily in the lower lobes, similar to the prior exam. No other airspace consolidation or masses are seen. Airways are clear. Pleural space: Unremarkable. No pneumothorax. No pleural effusion. Heart: Unremarkable. No cardiomegaly. No pericardial effusion. Lymph nodes: Unremarkable. No enlarged lymph nodes. Bones/joints: Unremarkable. No acute fracture. Soft tissues: Unremarkable. IMPRESSION: 1. No evidence of pulmonary embolism. 2. Stable areas of air trapping and nonspecific ground-glass opacities in the lungs. No new infiltrates or masses. Nonemergent follow-up high-resolution chest CT may be beneficial. Electronically signed by: Francois Norris On 03/04/2020 22:56:11 PM
[2020-03-04] MEDS ORDERED: ZITHTAB PO (23:13)
[2020-03-04 23:32] VITALS: BP 134/68
--- NOTE | 2020-03-05 19:27 | ECGEPIP ---
[facility] - ED Test Date: 2020-03-04 Pat Name: SCOTT SENIOR Department: Room: - Gender: Female Base Brander: sb : 1980 Requested By: ELMER PASCUAL Order Number: [id number] Reading MD: Erika Jacinto Measurements Intervals [place] Rate: 73 P: 38 [place]: 169 QRS: 2 QRSD: 110 T: 34 QT: 380 QTc: 420 Interpretive Statements SINUS RHYTHM IVCD INCREASED RATE 08/12/19 Electronically Signed on 03-05-2020 19:27:32 EDT by Erika Jacinto
--- NOTE | 2020-03-06 09:20 | ED PDOC ---
Post-Departure Follow-Up cta chest faxed for fu to [facility]. Holli Allison MD Mar 06, 2020 09:20
== END 2020-03-04 23:34 | disposition home or self-care (01) ==
LOC: M ED 21:25
DX: J20.9 Acute bronchitis, unspecified (principal); R55 Syncope and collapse; F41.9 Anxiety disorder, unspecified; F32.9 Major depressive disorder, single episode, unspecified; J45.909 Unspecified asthma, uncomplicated; E66.01 Morbid (severe) obesity due to excess calories; Z79.899 Other long term (current) drug therapy; Z88.6 Allergy status to analgesic agent; Z88.8 Allergy status to other drugs, medicaments and biological substances; Z91.89 Other specified personal risk factors, not elsewhere classified
CPT/HCPCS: 71275; 80048; 82550; 82553; 84484; 85025; 85610; 85730; 93005; 96360; 99284; Q9967

== ENCOUNTER 2020-04-16 18:11 | Emergency (ER) | payer MEDICARE ==
[~2020-04-16] VITALS: Ht 157.5 cm; Wt 106.5 kg
[~2020-04-16 18:11] MED LIST changes: +AMOX500C PO; +OMEP-221 PO; +ZITHTAB PO
[2020-04-16 19:45] VITALS: BP 129/87
--- NOTE | 2020-04-16 19:59 | REP ---
Clinical: Trauma. Technique: AP and lateral views of the left tibia / fibula. Findings: No acute fracture or dislocation. Skeletal structures, joint spaces, and surrounding soft tissues are normal. No subcutaneous emphysema or radiodense foreign body. Impression: No acute fracture or dislocation. Electronically Signed by Perez Downing MD 04/16/2020 07:51 P
--- NOTE | 2020-04-16 20:03 | REP ---
Clinical: Trauma. Technique: AP, lateral, bilateral oblique views of the left ankle. Findings: Mild swelling. No definite acute fracture or dislocation is appreciated although minuscule avulsion fracture of the lateral malleolus cannot be excluded. Joint spaces and ankle mortise are intact. Incidental moderate heal spur noted. Impression: As above. No definite acute fracture. Electronically Signed by Perez Downing MD 04/16/2020 07:55 P
== END 2020-04-16 19:46 | disposition home or self-care (01) ==
LOC: M ED 18:11
DX: S80.211A Abrasion, right knee, initial encounter (principal); S80.01XA Contusion of right knee, initial encounter; S93.402A Sprain of unspecified ligament of left ankle, initial encounter; W18.49XA Other slipping, tripping and stumbling without falling, initial encounter; Y99.0 Civilian activity done for income or pay; I10 Essential (primary) hypertension; K21.9 Gastro-esophageal reflux disease without esophagitis; E78.00 Pure hypercholesterolemia, unspecified; F31.9 Bipolar disorder, unspecified; Z90.710 Acquired absence of both cervix and uterus; Z79.899 Other long term (current) drug therapy; Z98.890 Other specified postprocedural states; Z88.6 Allergy status to analgesic agent; Z91.02 Food additives allergy status

== ENCOUNTER 2020-05-04 15:44 | Emergency (ER) | payer MEDICARE ==
[~2020-05-04] VITALS: Ht 157.5 cm; Wt 107.4 kg
[2020-05-04] MEDS ORDERED: LIDOCAINE 5% (LIDODERM) PATCH TD ONE (17:15)
[2020-05-04] MEDS ORDERED: diazePAM 10 MG TAB PO ONE (17:15)
[2020-05-04] MEDS ORDERED: ACETAMINOPHEN 325 MG TAB PO ONE (17:15)
--- NOTE | 2020-05-04 17:31 | REPVR ---
PROCEDURE INFORMATION: Exam: CT Head Without Contrast Exam date and time: 05/04/2020 5:15 PM Age: 39 years old Clinical indication: Injury or trauma; Fall; Initial encounter; Blunt trauma (contusions or hematomas); Additional info: Fall, PT tender, dizzy, GOMEZ TECHNIQUE: Imaging protocol: Computed tomography of the head without contrast. Radiation optimization: All CT scans at this facility use at least one of these dose optimization techniques: automated exposure control; mA and/or kV adjustment per patient size (includes targeted exams where dose is matched to clinical indication); or iterative reconstruction. COMPARISON: No relevant prior studies available. FINDINGS: Brain: Normal. No hemorrhage. Unremarkable white matter. No mass effect. Ventricles: Normal. No ventriculomegaly. Bones/joints: Unremarkable. No acute fracture. Sinuses: Inflammatory changes in both maxillary sinuses. Mastoid air cells: Visualized mastoid air cells are well aerated. Soft tissues: Unremarkable. IMPRESSION: No acute intracranial findings. Electronically signed by: David Johnson On 05/04/2020 17:31:05 PM
--- NOTE | 2020-05-04 17:34 | REPVR ---
PROCEDURE INFORMATION: Exam: CT Lumbar Spine Without Contrast Exam date and time: 05/04/2020 5:15 PM Age: 39 years old Clinical indication: Injury or trauma; Fall; Initial encounter; Blunt trauma (contusions or hematomas); Additional info: Fall, PT tender, dizzy, GOMEZ TECHNIQUE: Imaging protocol: Computed tomography images of the lumbar spine without contrast. Radiation optimization: All CT scans at this facility use at least one of these dose optimization techniques: automated exposure control; mA and/or kV adjustment per patient size (includes targeted exams where dose is matched to clinical indication); or iterative reconstruction. COMPARISON: CR Spine. Lumbosacral, complete 03/10/2014 8:20 PM FINDINGS: No segmental lumbar vertebral malalignment. Vertebral body height and morphology is maintained. No acute fracture or destructive process. Intervertebral disc height is maintained for age. No dilatation of the imaged distal abdominal aorta. No significant abnormality of the imaged retroperitoneum. IMPRESSION: No fracture or other acute abnormality involving the lumbar spine. Electronically signed by: Raji Mendez On 05/04/2020 17:34:21 PM
--- NOTE | 2020-05-04 17:34 | REPVR ---
PROCEDURE INFORMATION: Exam: CT Cervical Spine Without Contrast Exam date and time: 05/04/2020 5:15 PM Age: 39 years old Clinical indication: Injury or trauma; Fall; Initial encounter; Blunt trauma; Additional info: Fall, PT tender, dizzy, GOMEZ TECHNIQUE: Imaging protocol: Computed tomography images of the cervical spine without contrast. Radiation optimization: All CT scans at this facility use at least one of these dose optimization techniques: automated exposure control; mA and/or kV adjustment per patient size (includes targeted exams where dose is matched to clinical indication); or iterative reconstruction. COMPARISON: RF Esophagram Barium Swallow 06/07/2017 8:04 AM FINDINGS: Vertebrae: Straightened lordotic curvature of the cervical spine may be related to patient position although muscular spasm to be excluded clinically. C2-C3: No significant disc protrusion. No severe spinal canal stenosis. No significant neural foraminal narrowing. C3-C4: No significant disc protrusion. No severe spinal canal stenosis. No significant neural foraminal narrowing. C4-C5: No significant disc protrusion. No severe spinal canal stenosis. No significant neural foraminal narrowing. C5-C6: No significant disc protrusion. No severe spinal canal stenosis. No significant neural foraminal narrowing. C6-C7: No significant disc protrusion. No severe spinal canal stenosis. No significant neural foraminal narrowing. C7-T1: No significant disc protrusion. No severe spinal canal stenosis. No significant neural foraminal narrowing. Soft tissues: Unremarkable. Lungs: Lung apices are normal. IMPRESSION: 1. Straightened lordotic curvature of the cervical spine may be related to patient position although muscular spasm to be excluded clinically. 2. No fracture. Electronically signed by: David Johnson On 05/04/2020 17:34:19 PM
[2020-05-04] MEDS ORDERED: ROBA750T4 PO (17:50)
[2020-05-04] MEDS ORDERED: ASPE4PAD TOP (17:50)
[2020-05-04 17:56] VITALS: BP 141/84
[2020-05-05] MEDS ORDERED: **NOTE PATIENT COMMENT** MISC XX ONE (05:00)
== END 2020-05-04 17:59 | disposition home or self-care (01) ==
LOC: M ED 15:44
DX: S06.0X0A Concussion without loss of consciousness, initial encounter (principal); S16.1XXA Strain of muscle, fascia and tendon at neck level, initial encounter; S30.0XXA Contusion of lower back and pelvis, initial encounter; V00.281A Fall from other gliding-type pedestrian conveyance, initial encounter; Y92.9 Unspecified place or not applicable; Y99.8 Other external cause status; Y93.89 Activity, other specified; Z88.6 Allergy status to analgesic agent; Z88.8 Allergy status to other drugs, medicaments and biological substances; E78.00 Pure hypercholesterolemia, unspecified; I10 Essential (primary) hypertension; J45.909 Unspecified asthma, uncomplicated; F41.9 Anxiety disorder, unspecified; F32.9 Major depressive disorder, single episode, unspecified; Z79.899 Other long term (current) drug therapy

== ENCOUNTER → 2020-07-13 | Outpatient (REF) | payer MEDICARE, MEDICAID ==
[~2020-07-13] MED LIST changes: +ASPE4PAD TOP; +FERR325T3; +FLUO20CA22; +PANT40TA29 PO; -PANT40TA3 PO; +ROBA750T4 PO
[2020-07-13 17:42] LABS: BASO % 0.7 % (0.0-1.0); EOS # 0.1 10^3/uL (0.0-0.5); EOS % 3.1 % (0.0-3.0); HEMATOCRIT 41.4 % (36.0-47.0); HEMOGLOBIN 13.2 g/dl (12.0-15.5); LYMPH # 2.1 10^3/uL (1.5-5.0); LYMPH % 45.2 % (24.0-44.0); MEAN CORPUSCULAR HEMOGLOBIN 29.3 pg (27.0-33.0); MEAN CORPUSCULAR HGB CONC 31.9 g/dl (32.0-36.5); MEAN CORPUSCULAR VOLUME 91.8 fl (80.0-96.0); MONO # 0.4 10^3/uL (0.0-0.8); MONO % 9.2 % (0.0-5.0); NEUTROPHILS # 1.9 10^3/uL (1.5-8.5); NEUTROPHILS % 41.6 % (36.0-66.0); PLATELET COUNT, AUTOMATED 254 10^3/uL (150-450); RED BLOOD COUNT 4.51 10^6/uL (4.00-5.40); WHITE BLOOD COUNT 4.6 10^3/uL (4.0-10.0)
[2020-07-13 18:47] LABS: ALBUMIN 3.7 GM/DL (3.2-5.2); ALT/SGPT 17 U/L (12-78); BILIRUBIN,TOTAL 0.3 MG/DL (0.2-1.0); BLOOD UREA NITROGEN 11 MG/DL (7-18); CALCIUM LEVEL 8.9 MG/DL (8.5-10.1); CARBON DIOXIDE LEVEL 29 MEQ/L (21-32); CHLORIDE LEVEL 111 MEQ/L (98-107); CHOLESTEROL LEVEL 257 MG/DL (<200); CREATININE FOR GFR 0.86 MG/DL (0.55-1.30); FOLATE 7.2 NG/ML; FREE T4 0.89 NG/DL (0.76-1.46); GLOMERULAR FILTRATION RATE > 60.0 (>60); GLUCOSE, FASTING 103 MG/DL (70-100); HDL CHOLESTEROL 50 MG/DL (>40); IRON (FE) 67 UG/DL (50-170); LDL CHOLESTEROL 181 MG/DL (<100); NON-HDL-C 207 MG/DL; SODIUM LEVEL 143 MEQ/L (136-145); TOTAL PROTEIN 7.1 GM/DL (6.4-8.2); TRIGLYCERIDES LEVEL 128 MG/DL (<150); VITAMIN B12 LEVEL 422 PG/ML
== END ==
LOC: M LAB REF 16:55
PROVIDERS: ATTEND Nurse Practitioner Family
DX: I10 Essential (primary) hypertension (principal); E55.9 Vitamin D deficiency, unspecified; Z13.9 Encounter for screening, unspecified; F41.8 Other specified anxiety disorders; D64.9 Anemia, unspecified; E78.5 Hyperlipidemia, unspecified; K21.9 Gastro-esophageal reflux disease without esophagitis

== ENCOUNTER 2020-09-15 14:19 | Emergency (ER) | payer OTHER, MEDICARE, MEDICAID ==
[~2020-09-15 14:19] MED LIST changes: -FERR325T3; -FLUO20CA22
[2020-09-15] MEDS ORDERED: FERR325T3 (14:29)
[2020-09-15] MEDS ORDERED: FLUO20CA22 (14:29)
[2020-09-15] MEDS ORDERED: TRAZ-257 (14:29)
[2020-09-15] MEDS ORDERED: ACETAMINOPHEN 325 MG TAB PO ONE (15:00)
--- NOTE | 2020-09-15 15:30 | REPVR ---
PROCEDURE INFORMATION: Exam: XR Left Knee Exam date and time: 09/15/2020 3:05 PM Age: 40 years old Clinical indication: Pain; Knee; Right; Additional info: Left knee pain S/P fall TECHNIQUE: Imaging protocol: XR Left knee. Views: 4 or more views. COMPARISON: MRI-Knee WITHOUT CONTRAST 04/15/2015 5:54 PM FINDINGS: Bones/joints: No acute fracture. No dislocation. Soft tissues: Normal. IMPRESSION: No acute osseous abnormality. Electronically signed by: Sarita Horvath On 09/15/2020 15:30:30 PM
[2020-09-15 16:08] VITALS: BP 131/79
== END 2020-09-15 16:09 | disposition home or self-care (01) ==
LOC: M ED 14:19
DX: S80.02XA Contusion of left knee, initial encounter (principal); W19.XXXA Unspecified fall, initial encounter; Y92.89 Other specified places as the place of occurrence of the external cause; Y93.9 Activity, unspecified; Y99.0 Civilian activity done for income or pay; F31.9 Bipolar disorder, unspecified; J45.909 Unspecified asthma, uncomplicated; Z86.711 Personal history of pulmonary embolism; Z79.899 Other long term (current) drug therapy; Z88.6 Allergy status to analgesic agent; Z88.8 Allergy status to other drugs, medicaments and biological substances; Z91.02 Food additives allergy status

== ENCOUNTER → 2020-10-31 | Outpatient (CLI) | payer MEDICARE, MEDICAID ==
[~2020-10-31] MED LIST changes: +E-Z-GAS II EFFERVESCENT PACKET (SODIUM BICARB./CITRIC ACID/SIMETHICONE) As Ordered ONE; +E-Z-HD 98% w/w 340GM SUSP BTL As Ordered ONE; +E-Z-PAQUE 96% w/w SUSP 176GM BTL As Ordered ONE; +FERR325T3; +FLUO20CA22
--- NOTE | 2020-10-31 17:54 | REP ---
INDICATION: DYSPHAGIA. COMPARISON: None TECHNIQUE: This procedure was performed by Robyn Bateman [facility], under the direct supervision of Dr. Curtis. Images were reviewed with Dr. Curtis prior to dictation. Liquid barium and gas producing crystals were given in the erect position, as well as liquid barium in the prone oblique position in order to perform a double contrast upper GI examination. FINDINGS: A single view PA chest x-ray is submitted as a plastic parts fabricator film. The superior mediastinal structures are midline. The heart size is within normal limits. The lungs are clear. The oral and pharyngeal stages of deglutition were unremarkable. Esophageal transport is prompt and efficient and there is no evidence of esophagitis, stricture, or mucosal ring. There is no evidence of a hiatal hernia. There was no gastroesophageal reflux noted . IMPRESSION: Unremarkable esophagram. 0.1 minutes of fluoroscopy time was utilized for this procedure. Some fluoroscopic images are performed with last image hold technology. These images require no additional radiation. <Electronically signed by Robyn Bateman > 10/31/20 1710 <Electronically signed by Manjit Curtis > 10/31/20 1754
== END ==
LOC: M RAD 06:53
PROVIDERS: ATTEND Physician Assistant Medical
DX: R13.10 Dysphagia, unspecified (principal)

== ENCOUNTER 2020-11-04 15:26 | Emergency (ER) | payer MEDICAID, MEDICARE ==
[~2020-11-04] VITALS: Ht 157.5 cm; Wt 101.7 kg
[2020-11-04 15:26] VITALS: BP 120/73
[~2020-11-04 15:26] MED LIST changes: -E-Z-GAS II EFFERVESCENT PACKET (SODIUM BICARB./CITRIC ACID/SIMETHICONE) As Ordered ONE; -E-Z-HD 98% w/w 340GM SUSP BTL As Ordered ONE; -E-Z-PAQUE 96% w/w SUSP 176GM BTL As Ordered ONE
[2020-11-04] MEDS ORDERED: ZONI100C17 (15:38)
[2020-11-04] MEDS ORDERED: predniSONE 20 MG TAB PO ONE (16:15)
[2020-11-04] MEDS ORDERED: CYCLOBENZAPRINE 10MG TABLET PO ONE (16:15)
[2020-11-04] MEDS ORDERED: PRED20TA PO (16:17)
[2020-11-04] MEDS ORDERED: CYCL5TAB PO (16:17)
== END 2020-11-04 17:00 | disposition home or self-care (01) ==
LOC: M ED 15:26
DX: G89.29 Other chronic pain (principal); M54.5 Low back pain; I10 Essential (primary) hypertension; E78.5 Hyperlipidemia, unspecified; R51.9 Headache, unspecified; J45.909 Unspecified asthma, uncomplicated; K21.9 Gastro-esophageal reflux disease without esophagitis; F41.9 Anxiety disorder, unspecified; F31.89 Other bipolar disorder; Z79.899 Other long term (current) drug therapy; Z88.6 Allergy status to analgesic agent; Z88.8 Allergy status to other drugs, medicaments and biological substances; Z91.02 Food additives allergy status

== ENCOUNTER 2020-11-07 19:20 | Emergency (ER) | payer MEDICARE ==
[~2020-11-07] VITALS: Ht 157.5 cm; Wt 102.8 kg
[2020-11-07 19:20] VITALS: BP 116/73
[~2020-11-07 19:20] MED LIST changes: +CYCL5TAB PO; +PRED20TA PO; +ZONI100C17
[2020-11-07] MEDS ORDERED: ACETAMINOPHEN 325 MG TAB PO ONE (20:00)
== END 2020-11-07 20:12 | disposition home or self-care (01) ==
LOC: M ED 19:20
DX: S00.03XA Contusion of scalp, initial encounter (principal); Y04.8XXA Assault by other bodily force, initial encounter; Y92.099 Unspecified place in other non-institutional residence as the place of occurrence of the external cause; Y93.9 Activity, unspecified; Y99.9 Unspecified external cause status; I10 Essential (primary) hypertension; J45.909 Unspecified asthma, uncomplicated; Z79.899 Other long term (current) drug therapy; Z88.6 Allergy status to analgesic agent; Z88.8 Allergy status to other drugs, medicaments and biological substances; Z91.02 Food additives allergy status

== ENCOUNTER 2020-12-23 16:26 | Emergency (ER) | payer MEDICARE ==
[~2020-12-23] VITALS: Ht 157.5 cm; Wt 100.0 kg
--- NOTE | 2020-12-23 18:10 | REP ---
INDICATION: SOB. COMPARISON: Comparison studies August 12, 2019.. TECHNIQUE: Sitting AP portable chest x-ray. FINDINGS: The lungs are symmetrically aerated and free of infiltrate. The pleural angles are sharp. Heart size is normal. Pulmonary vasculature is not increased. No significant bony abnormality is seen. Monitoring electrodes are noted. IMPRESSION: No active disease. <Electronically signed by Manjit Curtis > 12/23/20 8830
[2020-12-23 18:30] VITALS: BP 127/74
--- OUTSIDE RECORDS SUMMARY | 2020-12-23 18:40 | CCD ---
Author Author Trish Almanza Xiangoryamil Organization Unknown Address [address] [address] Phone Care Team Providers Care Metal Temperer Name Role Phone Miguel Ángel Almanza PCP Allergies, Adverse Reactions, Alerts No Data in Section Problem List Concept Problem Description Status Start Date Created Date Resolv ed Date Snomed Code F33.9 Major Depressive Disorder, Recurrent episode, Un specified Active 10/17/2015 10/17/2015 Medications Rx Norm Medication Route Route Concept Start Date Stop Date Dosage Haja quency Duration Formula Strength Dosage Form Dosage Form Code Dosage Description Medication Id Account Npid Author First Name Author Last Name Taxonomy Code Taxonomy Desc Phone Number [phone] fluoxetine by mouth [id number] 03/24/2020 once a day 20 mg cap asad 87420 [phone] Isidra Peters [id number] Psychiatric/Mental Health [phone] [id number] trazodone by mouth [id number] 05/31/2020 at bedtime 100 mg tab let 58602 [id number] Isidra Peters [id number] Psychiatric/Mental Health [id number] Social History Social History Element Description Concept Effective Date Smoking Status Unknown if ever smoked [id number] Immunizations No Data in Section Vital Signs No Data in Section Procedures Date Concept Id Description Targeted Site Concept Targeted Site Concept Type 12/05/2020 37358 Extended Individual Psychotherapy - 45 min CPT Patient has no history of implantable de vices Encounters Encounter Start Date End Date Encounter Type Description Diagnosis Di agnosis Desc Location Author First Name Author Last Name Npid Taxonomy Cod e Taxonomy Desc Phone Number Location Addr1 Location Addr2 Location [facility] Location Sta te Location [facility] [id number] 12/05/2020 12/05/2020 81156 Extended Individual Psych otherapy - 45 min F33.9 Major depressive disorder, recurrent, unspecified Comm [facility] [phone] Art Therapist [id number] [phone] [address] Plan of Treatment No Data in Section Lab Results No Data in Section Instructions No Data in Section Insurance Providers Insurance Id Policy Effective Date Policy Thru Date Company N kenroy [id number] 2019 Dual Complete Me dicare Community Plan [id number] 2015 MEDICAID
--- OUTSIDE RECORDS SUMMARY | 2020-12-23 18:40 | CCD | Continuity of Care Document ---
Author Author Trish MELGAR DPM Organization Unknown Address [address] [place] [address], [address] [place] [address] Phone [phone] Care Team Providers Care Magnetic Prospector Name Role Phone Diana MetzgerP AUTM [phone] Problems Active Problems Provider Date Other synovitis and tenosynovitis, left ankle and foot Obi Melgar DPM Onset: 08/22/2020 Resolved Problems Other synovitis and tenosynovitis, right ankle and foot Andr kasia Melgar DPM Onset: 06/25/2020 Resolved: 08/22/2020 Pain in limb Jean Paul Melgar DPM Onset: 06/25/2020 Resolved: 08/22/2020 Social History Type Date Description Comments Sex Unknown ETOH Use Denies alcohol use Tobacco Use Start: Unknown Patient has never smoked Allergies, Adverse Reactions, Alerts Active Allergies Reaction Severity Comments Date Aspirin Urticaria 01/05/2016 Ibuprofen Urticaria 01/05/2016 NSAIDs 07/31/2018 Medications Active Medications SIG Qnty Indications Ordering Provide r Date Prednisone 10mg Tablets prednisone taper: take 4 tabs for 5 days, 3 tabs for days 6 and 7, 2 tabs for days 8 and 9, and 1 tab days 10 and 11 32tabs Jean Paul Melgar DPM 01/19/20 20 Aspercreme W/Lidocaine 4% Cream apply to foot 2-3 times daily as needed 1units Jean Paul Melgar DPM 07/10/2019 Tramadol HCL 50mg Tablets 1 tabs every 12 hours as needed for pain 20tabs Jean Paul Melgar DPM Oxycodone-Acetaminophen 5-325mg Ta blets 1 or 2 tablets every 4 hours as needed for pain 20tabs An carlo R. Majak, DPM 05/21/2019 Methylprednisolone 4mg Tablets medrol kenny- take as directed 21tabs Jean Paul Melgar, M 05/11/2016 Naproxen Ec 500mg take one tablet by mouth twice daily . 30units Jean Paul Melgar, DPM 016 Ofloxacin (Otic) 0.3% Solution Instill Five Drops In The Right Ear Two Times A Day For 7 Days Unknown Metoprolol Tartrate 25mg Tablets Take One Tablet By Mouth Twice A Day Unknown Ferrous Sulfate 325(65Fe) mg Table ts DR Take One Tablet By Mouth Every Day Unknown Atorvastatin Calcium 40mg Tablets Take One Tablet By Mouth Every Evening AT Bedtime Unknown Acetaminophen Extra Strength 500mg Tablets Take One Tablet By Mouth Three Times A Day as Needed For Pain Unknown Proair HFA 108(90Base) mcg/Act Aerosol Unknown Fluoxetine HCL 20mg Capsules Unknown Hydrocodone-Acetaminophen 5-325mg Tablets 1 tablet by mouth every 12 hours as needed for pain 14tabs Jean Paul Melgar, [facility] Cefdinir 300mg Capsules Unknown Neomycin/Polymyxin/Hydrocortisone (Otic) 3.5-60844-4 Solution Granados RPA Fluoxetine HCL 40mg Capsules Unknown Omeprazole 20mg Capsules DR Nishant MOTTA, Callie Trazodone HCL 100mg Tablets Unknown Dexilant 30mg Capsules DR Nishant MOTTA, Callie Triamcinolone Acetonide 0.1% Ointment Maggie Saravia, Nystatin [id number] Ointment Maggie Saravia, Medications Administered in Office Medication SIG Qnty Indications Ordering Provider Date Inject Triamcinolone Acetonide 10 ML, ND C 3717-5740-73 Injection Jean Paul marino, [facility] 12/20/2020 Inject Dexamthosone Phosphate 23160-734- 30 Injection Jean Paul Melgar, [facility] 021 Inject Triamcinolone Acetonide 10 ML, ND C 6163-6674-38 Injection Jean Paul marino, [facility] 06/13/2020 Inject Dexamthosone Phosphate 72016-162- 30 Injection Jean Paul Melgar, [facility] 020 Inject Triamcinolone Acetonide 10 ML, ND C 6623-9684-16 Injection Jean Paul marino, [facility] 02/02/2020 Inject Dexamthosone Phosphate 20002-061- 30 Injection Jean Paul Melgar, [facility] 020 Inject Triamcinolone Acetonide 10 ML, ND C 9582-9859-87 Injection Jean Paul marino, [facility] 01/25/2016 Inject Dexamthosone Phosphate 73587-833- 30 Injection Jean Paul Melgar, [facility] 016 Immunizations Description No Information Available Vital Signs Date Vital Result Comment 04/23/2019 12:57pm Height 62 inches 5'2" Weight 210.00 lb BP Systolic 128 mmHg BP Diastolic 86 mmHg Heart Rate 74 /min BMI (Body Mass Index) 38.4 kg/m2 07/31/2018 3:35pm Height 52 inches 4'4" Weight 215.00 lb BP Systolic 138 mmHg BP Diastolic 80 mmHg Heart Rate 64 /min BMI (Body Mass Index) 55.9 kg/m2 Results Description No Information Available Procedures Date Code Description Status 12/20/202015487 Inject/Drain Joint/Bursa Interme diate Completed Medical Devices Description No Information Available Encounters Type Date Location Provider Dx Diagnosis Office Visit 12/20/2020 9:00a [place] [facility] Jean Paul Melgar DPM M79.2 Neuralgia and neuritis, unspecified M79.671 Pain in right foot M72.2 Plantar fascial fibromatosis Office Visit 08/15/2020 1:30p [place] [facility] Jean Paul Melgar DPM M65.872 Other synovitis and tenosynovitis, left ankle and foot Assessments Date Code Description Provider 12/20/2020 M79.2 Neuralgia and neuritis, unspecif ied Jean Paul Melgar DPM 12/20/2020 M79.671 Pain in right foot Jean Paul marino, [facility] 12/20/2020 M72.2 Plantar fascial fibromatosis And marcello Melgar DPM 08/15/2020 M65.872 Other synovitis and tenosynoviti s, left ankle and foot Jean Paul Melgar DPM Plan of Treatment Future Appointment(s):* 02/01/2021 8:45 am - Jean Paul Melgar DPM at [facility] Functional Status Description No Information Available Mental Status Description No Information Available Referrals Description No Information Available
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
--- OUTSIDE RECORDS SUMMARY | 2020-12-23 18:40 | CCD ---
Author Author Trish Almanza Xiangpayamil Organization Unknown Address [address] [address] Phone Care Team Providers Care Torch Straightener And Heater Name Role Phone Miguel Ángel Almanza PCP [...] Name Taxonomy Code Taxonomy Desc Phone Number [phone] fluoxetine by mouth I74469 03/24/2020 once a day 20 mg cap asad 55727 925319 [phone] Isidra Peters [id number] Psychiatric/Mental Health [phone] 921129 trazodone by mouth Y82405 05/31/2020 at bedtime 100 mg tab let 02048 858119 [id number] Isidra Peters [id number] Psychiatric/Mental Health [phone] Social History Social History Element Description Concept Effective Date Smoking Status Unknown if ever smoked [id number] Immunizations No Data in Section Vital Signs No Data in Section Procedures Date Concept Id Description Targeted Site Concept Targeted Site Concept Type 12/21/2020 46990 Extended Individual Psychotherapy - 45 min CPT Patient has no history of implantable de vices Encounters Encounter Start Date End Date Encounter Type Description Diagnosis Di agnosis Desc Location Author First Name Author Last Name Npid Taxonomy Cod e Taxonomy Desc Phone Number Location Addr1 Location Addr2 Location [facility] Location Sta Location [facility] [id number] 12/21/2020 12/21/2020 28868 Extended Individual Psych otherapy - 45 min F33.9 Major depressive disorder, recurrent, unspecified Comm [facility] [id number] [id number] Art Therapist [id number] [address] [address] Plan of Treatment No Data in Section Lab Results No Data in Section Instructions No Data in Section Insurance Providers Insurance Id Policy Effective Date Policy Thru Date Company N kenroy [id number] 2019 Dual Complete Me dicare Community Plan [id number] 2015 MEDICAID
--- OUTSIDE RECORDS SUMMARY | 2020-12-23 18:40 | CCD | Continuity of Care Document ---
Author Author Trish MELGRA DPM Organization Unknown Address [address] [place] [address], [address] [place] [address] Phone [phone] Care Team Providers Care Clin Asst Name Role Phone Diana MetzgerP AUTM [phone] Problems Active Problems Provider Date Other synovitis [...] take as directed 21tabs Jean Paul Melgar, DPM 05/11/2016 Naproxen Ec 500mg take one tablet [...] needed for pain 14tabs Jean Paul Melgar, [facility] Cefdinir 300mg Capsules Unknown Neomycin/Polymyxin/Hydrocortisone (Otic) 3.5-27888-0 Solution Granados RPA Fluoxetine HCL 40mg Capsules Unknown Omeprazole 20mg Capsules Gisell Spaulding RPAh Trazodone HCL 100mg Tablets Unknown Dexilant 30mg Capsules DR Nishant MOTTA, Callie Triamcinolone Acetonide 0.1% Ointment Maggie Saravia, Nystatin [id number] Ointment Maggie Saravia, Medications Administered in Office Medication SIG Qnty Indications Ordering Provider Date Inject Triamcinolone Acetonide 10 ML, ND C 1355-3222-55 Injection Jean Paul marino, [facility] 06/13/2020 Inject Dexamthosone Phosphate 89782-309- 30 Injection Jean Paul Melgar, [facility] 020 Inject Triamcinolone Acetonide 10 ML, ND C 5926-8234-10 Injection Jean Paul marino, [facility] 02/02/2020 Inject Dexamthosone Phosphate 74437-776- 30 Injection Jean Paul Melgar DPM 020 Inject Triamcinolone Acetonide 10 ML, ND C 9372-4662-32 Injection Jean Paul marino, [facility] 01/25/2016 Inject Dexamthosone Phosphate 74128-405- 30 Injection Jean Paul Melgar, [facility] 016 Immunizations Description No Information Available Vital [...] kg/m2 Results Description No Information Available Procedures Description No Information Available Medical Devices Description No Information Available Encounters Type Date Location Provider Dx Diagnosis Office Visit 08/15/2020 1:30p [place] [facility] Jean Paul Melgar DPM M65.872 Other synovitis and tenosynovitis, left ankle and foot Assessments Date Code Description Provider 08/15/2020 M65.872 Other synovitis and tenosynoviti s, left ankle and foot Jean Paul Melgar DPM Plan of Treatment Future Appointment(s):* 02/01/2021 8:45 am - Jean Paul Melgar DPM at [facility] [place] Functional Status Description No Information Available Mental Status Description No Information Available Referrals Description No Information Available
--- OUTSIDE RECORDS SUMMARY | 2020-12-23 18:41 | CCD ---
Author Author Fran Trish Isidra Organization Unknown Address [address] [address] Phone Care Team Providers Care Graining Operator Name Role Phone Isidra Peters PCP Allergies, Adverse Reactions, Alerts No Data [...] Name Taxonomy Code Taxonomy Desc Phone Number [phone] fluoxetine by mouth R09008 03/24/2020 once a day 20 mg cap asad 62139 [id number] [phone] Isidra Peters [id number] Psychiatric/Mental Health [phone] 485029 trazodone by mouth U12787 05/31/2020 at bedtime 100 mg tab let 18172 [id number] [id number] Isidra Peters [id number] Psychiatric/Mental Health [id number] Social History Social History Element Description Concept Effective Date Smoking Status Unknown if ever smoked [id number] Immunizations No Data in Section Vital Signs Encounter Date Height Ins Weight Lbs Bmi Bp Systolic Bp Diastoli c Oxygen Saturation Respiration Rate Pulse Rate Body Temp Head Circumference Heigh t Lying 11/21/2020 0.00 0.00 0.00 0 0 0.00 0 0 0.00 0.0 0.0 0 Procedures Date Concept Id Description Targeted Site Concept Targeted Site Concept Type 11/21/2020 16747-44 [facility] Telemed E/M Lvl 3--Est pt CPT 11/21/2020 94975-49 Telemed A/O 30" CPT Patient has no history of implantable de vices Encounters Encounter Start Date End Date Encounter Type Description Diagnosis Di agnosis Desc Location Author First Name Author Last Name Npid Taxonomy Cod e Taxonomy Desc Phone Number Location Addr1 Location Addr2 Location [facility] Location Sta te Location Zip [id number] 11/21/2020 11/21/2020 93573-99 [facility] Telemed E/M Lvl 3--Est p t F33.9 Major depressive disorder, recurrent, unspecified [facility] Isidra [phone] [id number] Psychiatric/Mental Health [phone] [id number] [address] Plan of Treatment No Data in Section Lab Results No Data in Section Instructions No Data in Section Functional Cognitive Status No Data in Section Insurance Providers Insurance Id Policy Effective Date Policy Thru Date Company N kenroy [id number] 2019 Dual Complete Me dicare Community Plan [id number] 2015 MEDICAID
--- OUTSIDE RECORDS SUMMARY | 2020-12-23 18:41 | CCD | Continuity of Care Document ---
Author Author Trish TAMAYO Organization Unknown Address [address] [place] [address], [address] [place] [address] Phone [phone] Care Team Providers Care Mail Teller Name Role Phone Jeannie Hernandez AUTM [phone] Diana Metzger AUTM Problems Active Problems Provider Date Temporomandibular joint disorder El Tamayo II, PA-C Onset : 07/18/2016 Otalgia El Tamayo II, PA-C Onset: 07/18/2016 Allergic rhinitis El Tamayo II, PA-C Onset: 07/18/2016 Tinnitus, bilateral El Tamayo II, PA-C Onset: 07/18/2016 Allergic rhinitis Pao L Page DO Onset: 07/18/2016 Chronic pharyngitis Pao L Page DO Onset: 07/18/2016 Hypertrophy of tonsils Pao L Page DO Onset: 07/18/2016 Chronic tonsillitis Pao L Page DO Onset: 07/18/2016 Dysphagia Pao L Page DO Onset: 07/18/2016 Hypertrophy of nasal turbinates Pao L Page DO Onset: 0 07/18/2016 Epigastric pain Gabe Fabian MD Onset: 01/16/2017 Generalized abdominal pain Pepe Mcgovern MD Onset: 2017 Digestive symptom Pepe Mcgovern MD Onset: 06/20/2018 Benign neoplasm of ascending colon Pepe Mcgovern MD Onset : 06/20/2018 Heartburn Pepe Mcgovern MD Onset: 06/20/2018 Abdominal pain Kim Glen Calvillo RPA-C Onset: 06/20 Bilateral temporomandibular joint disorder El Tamayo II, PA-C Onset: 06/20/2018 Sensorineural hearing loss, bilateral El Tamayo II, PA-C Onset: 06/20/2018 Impacted cerumen El Tamayo II, PA-C Onset: 07/02/2018 Otitis externa El Tamayo II, PA-C Onset: 07/02/2018 Social History Type Date Description Comments Sex Unknown Tobacco Use Start: Unknown Never Smoked Cigarettes ETOH Use Denies alcohol use Tobacco Use Start: Unknown Non Smoker Recreational Drug Use Denies Drug Use Allergies, Adverse Reactions, Alerts Active Allergies Reaction Severity Comments Date Aspirin Hives 04/13/2010 Ibuprofen Urticaria 08/23/2016 Medications Active Medications SIG Qnty Indications Ordering Provide r Date Mineral Oil Oil place 3 drops in each ear daily 1units H60.8x3 Tera Rangel MD 02/08/2020 Trazodone HCL 100mg Tablets 1 tab every night Unknown Ventolin HFA 108(90Base) mcg/ac Ae rosol 2 puffs q4 hour prn with spacer 1units Unknown Ferrous Sulfate 325(65Fe) mg Table ts DR 1 by mouth a day 30tabs Unknown Fluoxetine HCL 40mg Capsules by mouth every day Unknown Atorvastatin Calcium 40mg Tablets daily Unknown Breo Ellipta 100-25mcg/Inh Aerosol 1 inhalation daily Unknown Metoprolol Tartrate 25mg Tablets twice daily Unknown Immunizations Description No Information Available Vital Signs Date Vital Result Comment 10/13/2020 1:28pm Height 62 inches 5'2" Weight 224.00 lb BMI (Body Mass Index) 41.0 kg/m2 [place] Body Weight 110 lb Weight 101.606 kg BSA (Body Surface Area) 2.01 m2 05/16/2020 2:19pm Height 62 inches 5'2" Weight 214.00 lb BMI (Body Mass Index) 39.1 kg/m2 [place] Body Weight 110 lb Weight 97.070 kg BSA (Body Surface Area) 1.97 m2 Results Description No Information Available Procedures Description No Information Available Medical Devices Description No Information Available Encounters Type Date Location Provider Dx Diagnosis Office Visit 05/16/2020 2:30p [facility] El carpio II, PA-C H60.8x3 Other otitis externa, bilateral H91.90 Unspecified hearing loss, un specified ear Assessments Date Code Description Provider 10/13/2020 H60.8x3 Other otitis externa, bilateral El Tamayo II, PA-C 10/13/2020 R47.02 Dysphasia El Tamayo II, PA-C 05/16/2020 H60.8x3 Other otitis externa, bilateral El Tamayo II, PA-C 05/16/2020 H91.90 Unspecified hearing loss, unspec ified ear El Tamayo II, PA-C Plan of Treatment 10/13/2020 - El Tamayo II, PA-C* H60.8x3 Other otitis externa, bilateral * R47.02 Dysphasia* New Xrays:* Barium Swallow, Esophogram, Ordered: 10/13/20 * Follow up:* 1m, needs esophogram prior Functional Status Description No Information Available Mental Status Description No Information Available Referrals Description No Information Available
--- OUTSIDE RECORDS SUMMARY | 2020-12-23 18:41 | CCD ---
Author Author Trish Almanza [facility] Organization Unknown Address [address] [place] [phone] Phone Care Team Providers Care Color Worker Name Role Phone Miguel Ángel Almanza PCP [...] Name Taxonomy Code Taxonomy Desc Phone Number [phone] fluoxetine by mouth [id number] 03/24/2020 once a day 20 mg cap asad [phone] Isidra Peters [id number] Psychiatric/Mental Health [phone] trazodone by mouth [id number] 05/31/2020 at bedtime 100 [place] [phone] Isidra Bloomrow [id number] Psychiatric/Mental Health [phone] Social History Social History Element Description Concept Effective Date Smoking Status Unknown if ever smoked [id number] Immunizations No Data in Section Vital Signs No Data in Section Procedures Date Concept Id Description Targeted Site Concept Targeted Site Concept Type 10/05/2020 90330 Extended Individual Psychotherapy - 45 min CPT Patient has no history of implantable de vices Encounters Encounter Start Date End Date Encounter Type Description Diagnosis Di agnosis Desc Location Author First Name Author Last Name Npid Taxonomy Cod e Taxonomy Desc Phone Number Location Addr1 Location Addr2 Location City Location [place] Location Zip [id number] 10/05/2020 10/05/2020 77811 Extended Individual Psych otherapy - 45 min F33.9 Major depressive disorder, recurrent, unspecified Comm [facility] [phone] [id number] Art Therapist [id number] [address] [address] Plan of Treatment No Data in Section Lab Results No Data in Section Instructions No Data in Section Insurance Providers Insurance Id Policy Effective Date Policy Thru Date Company N kenroy [id number] 2019 Dual Complete [employer] dicare Community Plan [id number] 2015 MEDICAID
--- OUTSIDE RECORDS SUMMARY | 2020-12-23 18:41 | CCD ---
Author [facility] Organization Unknown Address [address] [address] Phone Care Team Providers Care Entry Level Marketing Assistant Name Role Phone Migeul Ángel Almanza PCP Allergies, Adverse Reactions, Alerts [...] Name Taxonomy Code Taxonomy Desc Phone Number [phone] fluoxetine by mouth [id number] 03/24/2020 once a day 20 mg cap asad [phone] Isidra Peters [id number] Psychiatric/Mental Health [phone] trazodone by mouth [id number] 05/31/2020 at bedtime 100 mg [place] [phone] [phone] Isidra Peters [id number] Psychiatric/Mental Health [phone] Social History Social History Element Description Concept Effective Date Smoking Status Unknown if ever smoked [id number] Immunizations No Data in Section Vital Signs No Data in Section Procedures Date Concept Id Description Targeted Site Concept Targeted Site Concept Type 11/01/2020 74564 Extended Individual Psychotherapy - 45 min CPT Patient has no history of implantable de vices Encounters Encounter Start Date End Date Encounter Type Description Diagnosis Di agnosis Desc Location Author First Name Author Last Name Npid Taxonomy Cod e Taxonomy Desc Phone Number Location Addr1 Location Addr2 Location City Location Sta te Location Zip [id number] 11/01/2020 11/01/2020 83075 Extended Individual Psych otherapy - 45 min F33.9 Major depressive disorder, recurrent, unspecified Comm [facility] [id number] Art Therapist [id number] [phone] [address] Plan of Treatment No Data in Section Lab Results No Data in Section Instructions No Data in Section Insurance Providers Insurance Id Policy Effective Date Policy Thru Date Company Urszula jasmine [id number] 2019 Dual Complete [place] dic[employer] Community Plan [id number] 2015 MEDICAID
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
== END 2020-12-23 18:48 | disposition home or self-care (01) ==
LOC: EDBD 16:26 → M ED 16:26
DX: J45.909 Unspecified asthma, uncomplicated (principal); G89.29 Other chronic pain; M54.9 Dorsalgia, unspecified; K21.9 Gastro-esophageal reflux disease without esophagitis; F17.200 Nicotine dependence, unspecified, uncomplicated; Z79.899 Other long term (current) drug therapy; Z88.6 Allergy status to analgesic agent; Z88.8 Allergy status to other drugs, medicaments and biological substances; Z91.02 Food additives allergy status
CPT/HCPCS: 71045; 99284; U0002

== ENCOUNTER 2021-01-09 19:55 | Emergency (ER) | payer OTHER, MEDICAID, MEDICARE ==
[~2021-01-09] VITALS: Ht 157.5 cm; Wt 104.2 kg
--- OUTSIDE RECORDS SUMMARY | 2021-01-09 20:06 | CCD | Continuity of Care Document ---
Author Author Trish TAMAYO Organization Unknown Address [address] [place] [address], [address] [place] [address] Phone [phone] Care Team Providers Care Auto Body Repairman Name Role Phone Jeannie Hernandez AUTM [phone] Diana Metzger AUTM Problems Active Problems Provider [...] Onset: 06/20/2018 Sensorineural hearing loss, bilateral El Arredondomaria r TARIQ PA-C Onset: 06/20/2018 Impacted cerumen El Roni TARIQ PA-C Onset: 07/02/2018 Otitis externa El Tamayo [...] Metoprolol Tartrate 25mg Tablets twice daily Unknown Omeprazole 20mg Capsules DR 1 by mouth every day Unknown Zonisamide 50mg Capsules Unknown Immunizations Description No Information Available Vital Signs Date Vital Result Comment 11/15/2020 8:09am Height 62 inches 5'2" Weight 224.00 lb BMI (Body Mass Index) 41.0 kg/m2 [place] Body Weight 110 lb Weight 101.606 kg BSA (Body Surface Area) 2.01 m2 10/13/2020 1:28pm Height 62 inches 5'2" Weight 224.00 lb BMI (Body Mass Index) 41.0 kg/m2 [place] Body Weight 110 lb Weight 101.606 kg BSA (Body Surface Area) 2.01 m2 Results Test Acquired Date Facility Test Result H/L Range Note Xray 10/31/2020 [facility] nter Radiology Dept [address] [place] [phone] Barium Swallow, Esophogram <pending> Procedures Description No Information Available Medical Devices Description No Information Available Encounters Type Date Location Provider Dx Diagnosis Office Visit 10/13/2020 1:45p [facility] E[facility]GI [facility] El carpio II, PA-C H60.8x3 Other otitis externa, bilateral R47.02 Dysphasia J35.2 Hypertrophy of adenoids Assessments Date Code Description Provider 11/15/2020 R47.02 Dysphasia El Tamayo II, PA-C 11/15/2020 H60.8x3 Other otitis externa, bilateral El Tamayo II, PA-C 10/13/2020 H60.8x3 Other otitis externa, bilateral El Tamayo II, PA-C 10/13/2020 R47.02 Dysphasia El Tamayo II, PA-C 10/13/2020 J35.2 Hypertrophy of adenoids El chappell II, PA-C Plan of Treatment 11/15/2020 - El Tamayo II, PA-C* R47.02 Dysphasia* Comments:* ref to GI, * H60.8x3 Other otitis externa, bilateral* Follow up:* 6m Functional Status Description No Information Available Mental Status Description No Information Available Referrals Description No Information Available
--- OUTSIDE RECORDS SUMMARY | 2021-01-09 20:07 | CCD ---
Author Author [facility] Organization [facility] Address Unknown Phone Unavailable Support Name Relationship Address Phone LADONNA PINA Next Of Kin [address] [place] [address] JENNIFER [place] [address] Ladonna Yovani Next Of Kin Unknown Unavailable YOVANI, MELLY Next Of Kin [address] [place] [address] Miles BE, Ronald Next Of Kin [address] [place] [address] Yassine RICKETTSP, Diana Next Of Kin [address] [place] [address] Mary MORENO Jeannie Next Of Kin [address] [place], [place] [id number] Rubens RPA-C, Yamilex Next Of Kin [address] [place] [address] Felix Butt MD Next Of Kin [address] [place] [address] Nishant RPA-C, Callie Next Of Kin [address] [place] [address] YOVANI, ROSA MARIA Next Of Kin [address] [place] [address] MILES, JACINTA Next Of Kin [address] [place] [address] DONNA LUTZ Next Of Kin [address] [place] [address] CATALINO LUTZ Next Of Kin [address] [place] [address] NO, CONTACT Next Of Kin Unknown MILES, RONALD Next Of Kin [address] [facility] [address] [place] [address] RONALD RUBIO Next Of Kin [address] [facility] [address] [place] [address] NONE GWENDOLYN GARC[place] [address] UN PAPA MCKOY [place] [address] UN PAPAJODELORISS [place] [address] UN FISH, SEBASTIAN Next Of Kin [address] [place] [address] ABY ALBRIGHT Next Of Kin [address] [facility] [address] [place] [address] LUCINA CARVAJAL Next Of Kin [address] [place] [address] JESSY Next Of Kin [address] [place] [address] JOE LAWRENCE Next Of Kin [address] [place] [address] ARTSJUG Next Of Kin [address] [place] [address] [facility] Next Of Kin Unknown Unavailab Karl Schaffer Next Of Kin [address] [place] [address] IVAN STORY Next Of Kin [facility] [address] [place] [address] TERRI ABRAHAM Next Of Kin [address] [place] [id number] DISABLED Next Of Kin UN UN, UN UN UN UE Next Of Kin Unknown Unavailable KATHLEEN ABEBE Next Of Kin [address] [place] [address] PAPITO CARVAJAL Next Of Kin [address] [place] [address] Ronald Pina III ECON [address] [place] [id number] [phone] RONALD PINA ECON [address] [place] [id number] [phone] Care Team Providers Care Irish Moss Gatherer Name Role Phone Dillard, C Callie PA Unavailable Unavailable Dillard, C Callie PA Unavailable Unavailable Dillard, C Callie PA Unavailable Unavailable Dillard, C Callie PA Unavailable Unavailable Dillard, C Callie PA Unavailable Unavailable Dillard, C Callie PA Unavailable Unavailable Dillard, C Callie PA Unavailable Unavailable Dillard, C Callie PA Unavailable Unavailable Dillard, C Callie PA Unavailable Unavailable Dillard, C Callie PA Unavailable Unavailable Dillard, C Callie PA Unavailable Unavailable Dillard, C Callie PA Unavailable Unavailable Dillard, C Callie PA Unavailable Unavailable Dillard, C Callie PA Unavailable Unavailable Dillard, C Callie PA Unavailable Unavailable Dillard, C Callie PA Unavailable Unavailable Dillard, C Callie PA Unavailable Unavailable Dillard, C Callie PA Unavailable Unavailable Dillard, C Callie PA Unavailable Unavailable Dillard, C Callie PA Unavailable Unavailable Dillard, C Callie PA Unavailable Unavailable Dillard, C Callie PA Unavailable Unavailable Dillard, C Callie PA Unavailable Unavailable Dillard, C Callie PA Unavailable Unavailable Dillard, C Callie PA Unavailable Unavailable Dillard, C Callie PA Unavailable Unavailable Dillard, C Callie PA Unavailable Unavailable Dillard, C Callie PA Unavailable Unavailable Dillard, C Callie PA Unavailable Unavailable Dillard, C Callie PA Unavailable Unavailable Dillard, C Callie PA Unavailable Unavailable Dillard, C Callie PA Unavailable Unavailable Dillard, C Callie PA Unavailable Unavailable Dillard, C Callie PA Unavailable Unavailable Dillard, C Callie PA Unavailable Unavailable Dillard, C Callie PA Unavailable Unavailable Dillard, C Callie PA Unavailable Unavailable Dillard, C Callie PA Unavailable Unavailable Dillard, C Callie PA Unavailable Unavailable Dillard, C Callie PA Unavailable Unavailable Dillard, C Callie PA Unavailable Unavailable Dillard, C Callie PA Unavailable Unavailable Dillard, C Callie PA Unavailable Unavailable Dillard, C Callie PA Unavailable Unavailable Dillard, C Callie PA Unavailable Unavailable Dillard, C Callie PA Unavailable Unavailable Dillard, C Callie PA Unavailable Unavailable Cami, Xiangnmi Unavailable Kocan, J Pricilla TELETYPE OR VARITYPE KEYBOARD OPERATOR Unavailable Unavailable Kocan, J Pricilla TELETYPE OR VARITYPE KEYBOARD OPERATOR Unavailable Unavailable Kocan, J Pricilla TELETYPE OR VARITYPE KEYBOARD OPERATOR Unavailable Unavailable Kocan, J Pricilla TELETYPE OR VARITYPE KEYBOARD OPERATOR Unavailable Unavailable Kocan, J Pricilla TELETYPE OR VARITYPE KEYBOARD OPERATOR Unavailable Unavailable Kocan, J Pricilla TELETYPE OR VARITYPE KEYBOARD OPERATOR Unavailable Unavailable Kocan, J Pricilla TELETYPE OR VARITYPE KEYBOARD OPERATOR Unavailable Unavailable Kocan, J Pricilla TELETYPE OR VARITYPE KEYBOARD OPERATOR Unavailable Unavailable Kocan, J Pricilla TELETYPE OR VARITYPE KEYBOARD OPERATOR Unavailable Unavailable Kocan, J Pricilla TELETYPE OR VARITYPE KEYBOARD OPERATOR Unavailable Unavailable Kocan, J Pricilla TELETYPE OR VARITYPE KEYBOARD OPERATOR Unavailable Unavailable Kocan, J Pricilla TELETYPE OR VARITYPE KEYBOARD OPERATOR Unavailable Unavailable Kocan, J Pricilla TELETYPE OR VARITYPE KEYBOARD OPERATOR Unavailable Unavailable JUNE, KOMAL MD Unavailable Unavailable JUNE, KOMAL MD Unavailable Unavailable JUNE, KOMAL MD Unavailable Unavailable JUNE, KOMAL MD Unavailable Unavailable JUNE, KOMAL MD Unavailable Unavailable JUNE, KOMAL MD Unavailable Unavailable JUNE, KOMAL MD Unavailable Unavailable JUNE, KOMAL MD Unavailable Unavailable JUNE, KOMAL MD Unavailable Unavailable JUNE, KOMAL MD Unavailable Unavailable JUNE, KOMAL MD Unavailable Unavailable JUNE, KOMAL MD Unavailable Unavailable JUNE, KOMAL MD Unavailable Unavailable JUNE, KOMAL MD Unavailable Unavailable JUNE, KOMAL MD Unavailable Unavailable JUNE, KOMAL MD Unavailable Unavailable JUNE, KOMAL MD Unavailable Unavailable JUNE, KOMAL MD Unavailable Unavailable JUNE, KOMAL MD Unavailable Unavailable JUNE, KOMAL MD Unavailable Unavailable JUNE, KOMAL MD Unavailable Unavailable JUNE, KOMAL MD Unavailable Unavailable JUNE, KOMAL MD Unavailable Unavailable JUNE, KOMAL MD Unavailable Unavailable JUNE, KOMAL MD Unavailable Unavailable JUNE, KOMAL MD Unavailable Unavailable JUNE, KOMAL MD Unavailable Unavailable JUNE, KOMAL MD Unavailable Unavailable JUNE, KOMAL CALDERON Unavailable Unavailable JUNE, KOMAL CALDERON Unavailable Unavailable JUNE, KOMAL MD Unavailable Unavailable JUNE, KOMAL MD Unavailable Unavailable JUNE, KOMAL CALDERON Unavailable Unavailable JUNE, KOMAL CALDERON Unavailable Unavailable JUNE, KOMAL CALDERON Unavailable Unavailable JUNE, KOMAL CALDERON Unavailable Unavailable JUNE, KOMAL MD Unavailable Unavailable JUNE, KOMAL MD Unavailable Unavailable JUNE, KOMAL MD Unavailable Unavailable JUNE, KOMAL MD Unavailable Unavailable [place] MELGAR DPM Unavailable Unavailable [place] MELGAR DPM Unavailable Unavailable [place] MELGAR DPM Unavailable Unavailable [place] MELGAR DPM Unavailable Unavailable [place] MELGAR DPM Unavailable Unavailable [place] MELGAR DPM Unavailable Unavailable MAJAK, R AUDREY DPM Unavailable Unavailable MAJAK, R AUDREY DPM Unavailable Unavailable MAJAK, R AUDREY DPM Unavailable Unavailable MAJAK, R AUDREY DPM Unavailable Unavailable MAJAK, R AUDREY DPM Unavailable Unavailable MAJAK, R AUDREY DPM Unavailable Unavailable MAJAK, R AUDREY DPM Unavailable Unavailable MAJAK, R AUDREY DPM Unavailable Unavailable MAJAK, R AUDREY DPM Unavailable Unavailable MAJAK, R AUDREY DPM Unavailable Unavailable MAJAK, R AUDREY DPM Unavailable Unavailable MAJAK, R AUDREY DPM Unavailable Unavailable MAJAK, R AUDREY DPM Unavailable Unavailable MAJAK, R AUDREY DPM Unavailable Unavailable MAJAK, R AUDREY DPM Unavailable Unavailable MAJAK, R AUDREY DPM Unavailable Unavailable MAJAK, R AUDREY DPM Unavailable Unavailable MAJAK, R AUDREY DPM Unavailable Unavailable MAJAK, R AUDREY DPM Unavailable Unavailable MAJAK, R AUDREY DPM Unavailable Unavailable MAJAK, R AUDREY DPM Unavailable Unavailable MAJAK, R AUDREY DPM Unavailable Unavailable MAJAK, R AUDREY DPM Unavailable Unavailable MAJAK, R AUDREY DPM Unavailable Unavailable Trickey, J Hailey PA Unavailable Unavailable Trickey, J Hailey PA Unavailable Unavailable Trickey, J Hailey PA Unavailable Unavailable Trickey, J Hailey PA Unavailable Unavailable Trickey, J Hailey PA Unavailable Unavailable Trickey, J Hailey PA Unavailable Unavailable Trickey, J Hailey PA Unavailable Unavailable Trickey, J Hailey PA Unavailable Unavailable Trickey, J Hailey PA Unavailable Unavailable Trickey, J Hailey PA Unavailable Unavailable Trickey, J Hailey PA Unavailable Unavailable Trickey, J Hailey PA Unavailable Unavailable Trickey, J Hailey PA Unavailable Unavailable Trickey, J Hailey PA Unavailable Unavailable Trickey, J Hailey PA Unavailable Unavailable Trickey, J Hailey PA Unavailable Unavailable Trickey, J Hailey PA Unavailable Unavailable Trickey, J Hailey PA Unavailable Unavailable Trickey, J Hailey PA Unavailable Unavailable Trickey, J Hailey PA Unavailable Unavailable Trickey, J Hailey PA Unavailable Unavailable Trickey, J Hailey PA Unavailable Unavailable Trickey, J Hailey PA Unavailable Unavailable Trickey, J Hailey PA Unavailable Unavailable Trickey, J Hailey PA Unavailable Unavailable Trickey, J Hailey PA Unavailable Unavailable Trickey, J Hailey PA Unavailable Unavailable Trickey, J Hailey PA Unavailable Unavailable Trickey, J Hailey PA Unavailable Unavailable Trickey, J Hailey PA Unavailable Unavailable Trickey, J Hailey PA Unavailable Unavailable Trickey, J Hailey PA Unavailable Unavailable Trickey, J Hailey PA Unavailable Unavailable Trickey, J Hailey PA Unavailable Unavailable Trickey, J Hailey PA Unavailable Unavailable Trickey, J Hailey PA Unavailable Unavailable Trickey, J Hailey PA Unavailable Unavailable Trickey, J Hailey PA Unavailable Unavailable Trickey, J Hailey PA Unavailable Unavailable Trickey, J Hailey PA Unavailable Unavailable Trickey, J Hailey PA Unavailable Unavailable Trickey, J Hailey PA Unavailable Unavailable Trickey, J Hailey PA Unavailable Unavailable Trickey, J Hailey PA Unavailable Unavailable Trickey, J Hailey PA Unavailable Unavailable Trickey, J Hailey PA Unavailable Unavailable Trickey, J Hailey PA Unavailable Unavailable Trickey, J Hailey PA Unavailable Unavailable Short, Alcides Unavailable Unavailable Short, Alcides Unavailable Unavailable Short, Alcides Unavailable Unavailable Short, Alcides Unavailable Unavailable Short, Alcides Unavailable Unavailable Short, Alcides Unavailable Unavailable Short, Alcides Unavailable Unavailable Short, Alcides Unavailable Unavailable Short, Alcides Unavailable Unavailable Short, Alcides Unavailable Unavailable Short, Alcides Unavailable Unavailable Short, Alcides Unavailable Unavailable Short, Alcides Unavailable Unavailable Short, Alcides Unavailable Unavailable Short, Lacides Unavailable Unavailable Short, Alcides Unavailable Unavailable Short, Alcides Unavailable Unavailable Short, Alcides Unavailable Unavailable Short, Alcides Unavailable Unavailable Short, Alcides Unavailable Unavailable Short, Alcides Unavailable Unavailable Short, Alcides Unavailable Unavailable Short, Alcides Unavailable Unavailable Short, Alcides Unavailable Unavailable Short, Alcides Unavailable Unavailable Short, Alcides Unavailable Unavailable Short, Alcides Unavailable Unavailable Short, Alcides Unavailable Unavailable Short, Alcides Unavailable Unavailable Short, Alcides Unavailable Unavailable Short, Alcides Unavailable Unavailable Short, Alcides Unavailable Unavailable Short, Alcides Unavailable Unavailable Short, Alcides Unavailable Unavailable Short, Alcides Unavailable Unavailable Short, Alcides Unavailable Unavailable Short, Alcides Unavailable Unavailable Short, Alcides Unavailable Unavailable Short, Alcides Unavailable Unavailable Short, Alcides Unavailable Unavailable Short, Alcides Unavailable Unavailable Short, Alcides Unavailable Unavailable Short, Alcides Unavailable Unavailable Short, Alcides Unavailable Unavailable Short, Alcides Unavailable Unavailable Short, Alcides Unavailable Unavailable Short, Alcides Unavailable Unavailable Short, Alcides Unavailable Unavailable Short, Alcides Unavailable Unavailable Short, Alcides Unavailable Unavailable Short, Alcides Unavailable Unavailable Yassine, A Diana WATER SUPERVISOR Unavailable Unavailable Yassine, A Diana WATER SUPERVISOR Unavailable Unavailable Yassine, A Diana WATER SUPERVISOR Unavailable Unavailable Yassine, A Diana WATER SUPERVISOR Unavailable Unavailable [place], A Diana WATER SUPERVISOR Unavailable Unavailable [place], A Diana WATER SUPERVISOR Unavailable Unavailable [place], A Diana WATER SUPERVISOR Unavailable Unavailable [place], A Diana WATER SUPERVISOR Unavailable Unavailable [place], A Diana WATER SUPERVISOR Unavailable Unavailable [place], A Diana WATER SUPERVISOR Unavailable Unavailable [place], A Diana WATER SUPERVISOR Unavailable Unavailable [place], A Diana WATER SUPERVISOR Unavailable Unavailable [place], A Diana WATER SUPERVISOR Unavailable Unavailable [place], A Diana WATER SUPERVISOR Unavailable Unavailable [place], A Diana WATER SUPERVISOR Unavailable Unavailable [place], A Diana WATER SUPERVISOR Unavailable Unavailable [place], A Diana WATER SUPERVISOR Unavailable Unavailable [place], A Diana WATER SUPERVISOR Unavailable Unavailable [place], A Diana WATER SUPERVISOR Unavailable Unavailable [place], A Diana WATER SUPERVISOR Unavailable Unavailable [place], A Diana WATER SUPERVISOR Unavailable Unavailable [place], A Diana WATER SUPERVISOR Unavailable Unavailable [place], A Diana WATER SUPERVISOR Unavailable Unavailable [place], A Diana WATER SUPERVISOR Unavailable Unavailable [place], A Diana WATER SUPERVISOR Unavailable Unavailable [place], A Diana WATER SUPERVISOR Unavailable Unavailable [place], A Diana WATER SUPERVISOR Unavailable Unavailable [place], A Diana WATER SUPERVISOR Unavailable Unavailable Megan Vasquez MD Unavailable Unavailable ChristinaMegan frank MD Unavailable Unavailable Mokelumne HillMegan frank MD Unavailable Unavailable ChristinaMegan waite MD Unavailable Unavailable ChristinaMegan waite MD Unavailable Unavailable ChristinaMegan frank MD Unavailable Unavailable Mokelumne HillMegan frank MD Unavailable Unavailable Mokelumne HillMegan frank MD Unavailable Unavailable ChristinaMegan frank MD Unavailable Unavailable ChristinaMegan frank MD Unavailable Unavailable Mokelumne HillMegan frank MD Unavailable Unavailable ChristinaMegan waite MD Unavailable Unavailable Mokelumne HillMegan frank MD Unavailable Unavailable Mokelumne HillMegan waite MD Unavailable Unavailable ChristinaMegan waite MD Unavailable Unavailable Mokelumne HillMegan waite MD Unavailable Unavailable ChristinaMegan waite MD Unavailable Unavailable ChristinaMegan waite MD Unavailable Unavailable ChristinaMegan waiet MD Unavailable Unavailable Mokelumne HillMegan waite MD Unavailable Unavailable Mokelumne HillMegan waite MD Unavailable Unavailable ChristinaMegan waite MD Unavailable Unavailable ChristinaMegan waite MD Unavailable Unavailable ChristinaMegan waite MD Unavailable Unavailable ChristinaMegan waite MD Unavailable Unavailable ChristinaMegan waite MD Unavailable Unavailable ChristinaMegan waite MD Unavailable Unavailable ChristinaMegan waite MD Unavailable Unavailable ChristinaMegan waite MD Unavailable Unavailable ChristinaMegan waite MD Unavailable Unavailable ChristinaMegan waite MD Unavailable Unavailable ChristinaMegan waite MD Unavailable Unavailable Mokelumne HillMegan waite MD Unavailable Unavailable ChristinaMegan waite MD Unavailable Unavailable Mokelumne HillMegan waite MD Unavailable Unavailable Mokelumne HillMegan waite MD Unavailable Unavailable Mokelumne HillMegan waite MD Unavailable Unavailable Freeman, K Isidra PMH-FENDER FINISHER Unavailable Unavailable Freeman, K Isidra PMH-FENDER FINISHER Unavailable Unavailable Fran, K Isidra PMH-FENDER FINISHER Unavailable Unavailable Freeman, K Isidra PMH-FENDER FINISHER Unavailable Unavailable Fran, K Isidra PMH-FENDER FINISHER Unavailable Unavailable Fran, K Isidra PMH-FENDER FINISHER Unavailable Unavailable Milo, W Ross PA Unavailable Unavailable Milo, W Ross PA Unavailable Unavailable Milo, W Ross PA Unavailable Unavailable Milo, W Ross PA Unavailable Unavailable Milo, W Ross PA Unavailable Unavailable Milo, W Ross PA Unavailable Unavailable Milo, W Ross PA Unavailable Unavailable Milo, W Ross PA Unavailable Unavailable Milo, W Ross PA Unavailable Unavailable Milo, W Ross PA Unavailable Unavailable Milo, W Ross PA Unavailable Unavailable Milo, W Ross PA Unavailable Unavailable Milo, W Ross PA Unavailable Unavailable Milo, W Ross PA Unavailable Unavailable Milo, W Ross PA Unavailable Unavailable Milo, W Ross PA Unavailable Unavailable Milo, W Ross PA Unavailable Unavailable Milo, W Ross PA Unavailable Unavailable Milo, W Ross PA Unavailable Unavailable Milo, W Ross PA Unavailable Unavailable Milo, W Ross PA Unavailable Unavailable Milo, W Ross PA Unavailable Unavailable Milo, W Ross PA Unavailable Unavailable Milo, W Ross PA Unavailable Unavailable Milo, W Ross PA Unavailable Unavailable Milo, W Ross PA Unavailable Unavailable Milo, W Ross PA Unavailable Unavailable Milo, W Ross PA Unavailable Unavailable Milo, W Ross PA Unavailable Unavailable Milo, W Ross PA Unavailable Unavailable Milo, W Ross PA Unavailable Unavailable Milo, W Ross PA Unavailable Unavailable Milo, W Ross PA Unavailable Unavailable Milo, W Ross PA Unavailable Unavailable Milo, W Ross PA Unavailable Unavailable Milo, W Ross PA Unavailable Unavailable Milo, W Ross PA Unavailable Unavailable Milo, W Ross PA Unavailable Unavailable Milo, W Ross PA Unavailable Unavailable Milo, W Ross PA Unavailable Unavailable Miol, W Ross PA Unavailable Unavailable Milo, W Ross PA Unavailable Unavailable Milo, W Ross PA Unavailable Unavailable Milo, W Ross PA Unavailable Unavailable Milo, W Ross PA Unavailable Unavailable Milo, W Ross PA Unavailable Unavailable Papito, Sarah Unavailable Unavailable ALYSON, SHREYAS CALDERON Unavailable Unavailable ALYSON, SHREYAS CALDERON Unavailable Unavailable ALYSON, SHREYAS CALDERON Unavailable Unavailable ALYSON, SHREYAS CALDERON Unavailable Unavailable ALYSON, SHREYAS CALDERON Unavailable Unavailable ALYSON, SHREYAS CALDERON Unavailable Unavailable ALYSON, SHREYAS CALDERON Unavailable Unavailable ALYSON, SHREYAS CALDERON Unavailable Unavailable ALYSON, SHREYAS CALDERON Unavailable Unavailable ALYSON, SHREYAS CALDERON Unavailable Unavailable ALYSON, SHREYAS CALDERON Unavailable Unavailable ALYSON, SHREYAS CALDERON Unavailable Unavailable ALYSON, SHREYAS CALDERON Unavailable Unavailable ALYSON, SHREYAS CALDERON Unavailable Unavailable ALYSON, SHREYAS CALDERON Unavailable Unavailable ALYSON, SHREYAS CALDERON Unavailable Unavailable ALYSON, SHREYAS CALDERON Unavailable Unavailable ALYSON, SHREYAS CALDERON Unavailable Unavailable ALYSON, SHREYAS CALDERON Unavailable Unavailable ALYSON, SHREYAS CALDERON Unavailable Unavailable ALYSON, SHREYAS CALDERON Unavailable Unavailable ALYSON, SHREYAS CALDERON Unavailable Unavailable ALYSON, SHREYAS CALDERON Unavailable Unavailable ALYSON, SHREYAS CALDERON Unavailable Unavailable ALYSON, SHREYAS CALDERON Unavailable Unavailable ALYSON, SHREYAS CALDERON Unavailable Unavailable ALYSON, SHREYAS CALDERON Unavailable Unavailable ALYSON, SHREYAS CALDERON Unavailable Unavailable ALYSON, SHREYAS CALDERON Unavailable Unavailable ALYSON, SHREYAS CALDERON Unavailable Unavailable ALYSON, SHREYAS CALDERON Unavailable Unavailable ALYSON, SHREYAS CALDERON Unavailable Unavailable ALYSON, SHREYAS CALDERON Unavailable Unavailable ALYSON, SHREYAS CALDERON Unavailable Unavailable ALYSON, SHREYAS CALDERON Unavailable Unavailable ALYSON, SHREYAS CALDERON Unavailable Unavailable ALYSON, SHREYAS CALDERON Unavailable Unavailable ALYSON, SHREYAS CALDERON Unavailable Unavailable ALYSON, SHREYAS CALDERON Unavailable Unavailable ALYSON, SHREYAS CALDERON Unavailable Unavailable ALYSON, SHREYAS CALDERON Unavailable Unavailable ALYSON, SHREYAS CALDERON Unavailable Unavailable ALYSON, SHREYAS CALDERON Unavailable Unavailable ALYSON, SHREYAS CALDERON Unavailable Unavailable ALYSON, SHREYAS CALDERON Unavailable Unavailable ALYSON, SHREYAS CALDERON Unavailable Unavailable ALYSON, SHREYAS CALDERON Unavailable Unavailable ALYSON, SHREYAS CALDERON Unavailable Unavailable ALYSON, SHREYAS CALDERON Unavailable Unavailable ALYSON, SHREYAS CALDERON Unavailable Unavailable ALYSON, SHREYAS CALDERON Unavailable Unavailable ALYSON, SHREYAS CALDERON Unavailable Unavailable ALYSON, SHREYAS CALDERON Unavailable Unavailable ALYSON, SHREYAS CALDERON Unavailable Unavailable Ryley Lopez MD Unavailable Lopez, G Shaq MD Unavailable Lopez, G Shaq MD Unavailable Lopez, G Shaq MD Unavailable Lopez, G Shaq MD Unavailable Lopez, G Shaq MD Unavailable Lopez, G Shaq MD Unavailable Lopez, G Shaq MD Unavailable Lopez, G Shaq MD Unavailable Lopez, G Shaq MD Unavailable Lopez, G Shaq MD Unavailable Lopez, G Shaq MD Unavailable Lopez, G Shaq MD Unavailable Lopez, G Shaq MD Unavailable Lopez, G Shaq MD Unavailable Lopez, G Shaq MD Unavailable Lpoez, G Shaq MD Unavailable Lopez, G Shaq MD Unavailable Lopez, G Shaq MD Unavailable Lopez, G Shaq MD Unavailable Lopez, G Shaq MD Unavailable Lopez, G Shaq MD Unavailable Lopez, G Shaq MD Unavailable Lopez, G Shaq MD Unavailable Lopez, G Shaq MD Unavailable Lopez, G Shaq MD Unavailable Lopez, G Shaq MD Unavailable Lopez, G Shaq MD Unavailable Lopez, G Shaq MD Unavailable Lopez, Ryley Shaq CALDERON Unavailable Lopez, Ryley Shaq CALDERON Unavailable Lopez, Ryley Shaq CALDERON Unavailable Lopez, Ryley Shaq CALDERON Unavailable Lopez, Ryley Shaq CALDERON Unavailable Lopez, Ryley Shaq MD Unavailable Lopez, Ryley Shaq MD Unavailable Lopez, Ryley Shaq CALDERON Unavailable Lopez, Ryley Shaq CALDERON Unavailable Lopez, Ryley Shaq CALDERON Unavailable Roni II, El PA Unavailable Unavailable Roni II, El PA Unavailable Unavailable Roni II, El PA Unavailable Unavailable Roni II, El PA Unavailable Unavailable Roni II, El PA Unavailable Unavailable Roni II, El PA Unavailable Unavailable Roni II, El PA Unavailable Unavailable Roni II, El PA Unavailable Unavailable Roni II, El PA Unavailable Unavailable Roni II, El PA Unavailable Unavailable Roni II, El PA Unavailable Unavailable Roni II, El PA Unavailable Unavailable Roni II, El PA Unavailable Unavailable Roni II, El PA Unavailable Unavailable Roni II, El PA Unavailable Unavailable Roni II, El PA Unavailable Unavailable Roni II, El PA Unavailable Unavailable Yassine, Diana WATER SUPERVISOR WATER SUPERVISOR Unavailable Unavailable Yassine, A Diana WATER SUPERVISOR Unavailable Unavailable Yassine, A Diana WATER SUPERVISOR Unavailable Unavailable Yassine, A Diana WATER SUPERVISOR Unavailable Unavailable Yassine, A Diana WATER SUPERVISOR Unavailable Unavailable Yassine, A Diana WATER SUPERVISOR Unavailable Unavailable Yassine, A Diana WATER SUPERVISOR Unavailable Unavailable Yassine, A Diana WATER SUPERVISOR Unavailable Unavailable Yassine, A Diana WATER SUPERVISOR Unavailable Unavailable Yassine, A Diana WATER SUPERVISOR Unavailable Unavailable Yassine, A Diana WATER SUPERVISOR Unavailable Unavailable Yassine, A Diana WATER SUPERVISOR Unavailable Unavailable Yassine, A Diana WATER SUPERVISOR Unavailable Unavailable Yassine, A Diana WATER SUPERVISOR Unavailable Unavailable Yassine, A Diana WATER SUPERVISOR Unavailable Unavailable Yassine, A Diana WATER SUPERVISOR Unavailable Unavailable Yassine, A Diana WATER SUPERVISOR Unavailable Unavailable [place], A Diana WATER SUPERVISOR Unavailable Unavailable [place], A Diana WATER SUPERVISOR Unavailable Unavailable [place], A Diana WATER SUPERVISOR Unavailable Unavailable Yassine, A Diana WATER SUPERVISOR Unavailable Unavailable Yassine, A Diana WATER SUPERVISOR Unavailable Unavailable Yassine, A Diana WATER SUPERVISOR Unavailable Unavailable Yassine, A Diana WATER SUPERVISOR Unavailable Unavailable [place], A Diana WATER SUPERVISOR Unavailable Unavailable [place], A Diana WATER SUPERVISOR Unavailable Unavailable [place], A Diana WATER SUPERVISOR Unavailable Unavailable Yassine, A Diana WATER SUPERVISOR Unavailable Unavailable Yassine, A Diana WATER SUPERVISOR Unavailable Unavailable HAWKINS, CAMILA MD Unavailable Unavailable HAWKINS, CAMILA MD Unavailable Unavailable HAWKINS, CAMILA MD Unavailable Unavailable HAWKINS, CAMILA MD Unavailable Unavailable HAWKINS, CAMILA MD Unavailable Unavailable HAWKINS, CAMILA MD Unavailable Unavailable HAWKINS, CAMILA MD Unavailable Unavailable HAWKINS, CAMILA MD Unavailable Unavailable HAWKINS, CAMILA MD Unavailable Unavailable HAWKINS, CAMILA MD Unavailable Unavailable HAWKINS, CAMILA MD Unavailable Unavailable HAWKINS, CAMILA MD Unavailable Unavailable HAWKINS, CAMILA MD Unavailable Unavailable HAWKINS, CMAILA MD Unavailable Unavailable HAWKINS, CAMILA MD Unavailable Unavailable HAWKINS, CAMILA MD Unavailable Unavailable HAWKINS, CAMILA MD Unavailable Unavailable HAWKINS, CAMILA MD Unavailable Unavailable HAWKINS, CAMILA MD Unavailable Unavailable HAWKINS, CAMILA MD Unavailable Unavailable HAWKINS, CAMILA MD Unavailable Unavailable HAWKINS, CAMILA MD Unavailable Unavailable HAWKINS, CAMILA MD Unavailable Unavailable HAWKINS, CAMILA MD Unavailable Unavailable HAWKINS, CAMILA MD Unavailable Unavailable HAWKINS, CAMILA MD Unavailable Unavailable HAWKINS, CAMILA MD Unavailable Unavailable HAWKINS, CAMILA MD Unavailable Unavailable HAWKINS, CAMILA MD Unavailable Unavailable HAWKINS, CAMILA MD Unavailable Unavailable Re-disclosure Warning The records that you are about to access may contain information from federally-assisted alcohol or drug abuse programs. If such information is present, then the following federally mandated warning applies: This information has been disclosed to you from records protected by federal confidentiality rules (42 CFR part 2). The federal rules prohibit you from making any further disclosure of this information unless further disclosure is expressly permitted by the written consent of the person to whom it pertains or as otherwise permitted by 42 CFR part 2. A general authorization for the release of medical or other information is NOT sufficient for this purpose. The Federal rules restrict any use of the information to criminally investigate or prosecute any alcohol or drug abuse patient.The records that you are about to access may contain highly sensitive health information, the redisclosure of which is protected by Article 27-F of the [facility] Public Health law. If you continue you may have access to information: Regarding HIV / AIDS; Provided by facilities licensed or operated by the [facility] Office of Mental Health; or Provided by the [facility] Office for People With Developmental Disabilities. If such information is present, then the following [facility] mandated warning applies: This information has been disclosed to you from confidential records which are protected by state law. State law prohibits you from making any further disclosure of this information without the specific written consent of the person to whom it pertains, or as otherwise permitted by law. Any unauthorized further disclosure in violation of state law may result in a fine or halfway sentence or both. A general authorization for the release of medical or other information is NOT sufficient authorization for further disc losure. Allergies and Adverse Reactions Type Description Substance Reaction Status Data Source(s ) Propensity to adverse reactions IBUPROFEN Ibuprofen Acti ve [facility] Family History Family Member Name Family Member Gender Family Member Status Date o f Status Description Data Source(s) Unknown Unknown Problem [facility] ([facility] ) Type unknown Encounters Encounter Providers Location Date Indications Data Source(s ) Attender: Miguel Ángel Almanza 12/22/2020 12:00:00 AM EST [facility] ([facility]) Extended Individual Psychotherapy - 45 min Attender: [facility] 12/21/2020 03:00:00 AM EST - 12/21/2020 03:00:00 AM EST [facility] ([facility]) Office Visit Attender: AUDREY MELGAR [facility] Office 11/26 08:00:00 AM EST [facility] ([facility] Outpatient Attender: Pricilla VELASQUEZP.EVANGELIST-SJP.EVANGELIST 2020 12:00:00 AM EST - 12/07/2020 01:57:25 PM EST [facility] Extended Individual Psychotherapy - 45 min Attender: [facility] 12/05/2020 12:00:00 PM EST - 12/05/2020 12:00:00 PM EST [facility] ([facility] 12/05/2020 12:00:00 AM EST [facility] ([facility]) Outpatient Attender: Hailey WILLS Main office - [facility] 11/24/2020 08:15:00 AM EST [facility] ([facility] FRANCIS landry) Outpatient Attender: Isidra Peters [facility] 11/21/2020 03:30:00 AM EST - 11/21/2020 03:30:00 AM EST [facility] ([facility]) Attender: Isidra Peters [facility] 11/21/2020 12: 00:00 AM EST [facility] ([facility]) Extended Individual Psychotherapy - 45 min Attender: [facility] 11/01/2020 12:00:00 PM EST - 11/01/2020 12:00:00 PM EST [facility] ([facility]) [facility] 11/01/2020 12:00:00 AM EST [facility] ([facility]) Outpatient Attender: El Rangel/Jayde/Jerman/Xavier garcia 10/13/2020 12:45:00 PM EST [facility] ([facility] Lisette richard, FRANCIS) Extended Individual Psychotherapy - 45 min Attender: [facility] 10/05/2020 03:00:00 AM EST - 10/05/2020 03:00:00 AM EST [facility] ([facility]) Attender: [facility] 10/05/2020 12:00:00 AM EST [facility] ([facility]) Extended Individual Psychotherapy - 45 min Attender: [facility] 09/20/2020 04:00:00 AM EDT - 09/20/2020 04:00:00 AM EDT [facility] ([facility]) [facility]: [facility] 09/20/2020 12:00:00 AM EDT [facility] ([facility]) Outpatient [facility]: [facility] 09/12/2020 12:07:03 P M EDT [facility] Recurring Patient Attender: Alicdes Ramírezerrer: Callie WILLS 09/12/2020 12:01:29 PM EDT [facility] Outpatient Attender: Isidra Peters [facility] 08/29/2020 03:30:00 AM EDT - 08/29/2020 03:30:00 AM EDT [facility] ([facility]) Attender: Isidra Peters [facility] 08/29/2020 12: 00:00 AM EDT [facility] ([facility]) Outpatient Attender: Diana [facility] 08/26/2020 11:2 6:02 AM EDT [facility] Extended Individual Psychotherapy - 45 min Attender: Miguel Ángel Almanza [facility] 08/26/2020 05:00:00 AM EDT - 08/26/2020 05:00:00 AM EDT [facility] ([facility]) Attender: Miguel Ángel Almanza 08/26/2020 12:00:00 AM EDT [facility] ([facility]) Outpatient Attender: CAMILA HAWKINS MD Physical Therapy 01:15:00 PM EDT [facility] ([facility]) Outpatient Attender: [facility] 08/15/2020 07:32:02 P M EDT [facility] Office Visit Attender: AUDREY MELGAR [facility] Office 07/27 01:30:00 PM EDT [facility] ([facility] Outpatient Attender: [facility] 08/13/2020 09:53:00 A M EDT [facility] Outpatient Attender: [facility] 08/12/2020 03:09:00 P M EDT [facility] Outpatient Attender: [facility] 08/12/2020 07:50:01 A M EDT [facility] Outpatient Attender: Hailey WILLS Main office - [facility] 08/09/2020 02:00:00 PM EDT [facility] ([facility] Outpatient Attender: NELIA Yassine [facility] 07/31/2020 03:38:01 P M EDT [facility] Outpatient Attender: Diana Metzger [facility] 07/31/2020 03:3 8:00 PM EDT [facility] Outpatient Attender: Shaq Lopez MDReferrer: Barak Metzger [facility] 07/25/2020 04:01:08 PM EDT [facility] Outpatient Attender: Diana Metzger [facility] 07/19/2020 10:1 8:01 PM EDT [facility] Outpatient Attender: Diana Metzger [facility] 07/12/2020 08:3 1:00 AM EDT [facility] Outpatient Attender: NELIA Metzger [facility] 07/11/2020 07:32:00 A M EDT [facility] Outpatient Attender: CAMILA HAWKINS MD Physical Therapy 11:15:00 AM EDT [facility] ([facility]) Outpatient Attender: Marielena Vasquez MDReferrer: Diana Yassine [facility] 06/21/2020 12:32:43 PM EDT [facility] Outpatient Attender: KOMAL WATKINS MD Main office - [facility] 06/17/2020 11:00:00 AM EDT [facility] ([facility]) Outpatient Attender: AUDREY MELGAR [facility] 05/26 01:15:00 PM EDT [facility] ([facility] Outpatient SJP-SJP 06/08/2020 10:57:53 PM EDT [facility] Outpatient Attender: CAMILA HAWKINS MD Physical Therapy 03:00:00 PM EDT [facility] ([facility]) Outpatient Referrer: SHREYAS SHIELDS MD SJP.CT-SJP.SYR 05/26/2020 07:58:04 AM EDT [facility] Outpatient Attender: Marielena OLIVEReferrer: Diaan PICKENS 05/25/2020 10:53:35 AM EDT [facility] Outpatient Attender: SHREYAS SHIELDS MDReferrer: SHREYAS VILLALOBOS .EVANGELIST-SJP 05/24/2020 02:12:31 PM EDT - 05/24/2020 03:16:44 PM EDT [facility] Outpatient Referrer: SHREYAS HAIRSTONSJHarvinderEVANGELIST 05/24/2020 12:00:00 AM EDT [facility] Outpatient 05/23/2020 04:42:00 AM EDT [facility] Recurring Patient Attender: Alcides ChReferrer: Callie WILLS 05/20/2020 03:08:32 PM EDT [facility] [id number]"Psychotherapy Attender: Miguel Ángel Almanza [facility] 05/20/2020 11:00:00 AM EDT - 05/20/2020 11:00:00 AM EDT [facility] ([facility]) Attender: Miguel Ángel Almanza 05/20/2020 12:00:00 AM EDT [facility] ([facility]) Outpatient Attender: Diana PICKENS 05/19/2020 03:2 3:59 PM EDT [facility] Outpatient Attender: NELIA PICKENS 05/19/2020 10:58:00 A M EDT [facility] Outpatient Attender: El Rangel/Jayde/Jerman/Xavier garcia 05/16/2020 02:30:00 PM EDT [facility] ([facility] Outpatient Attender: ENLIA PICKENS 05/11/2020 03:05:01 P M EDT [facility] [id number]"Psychotherapy Attender: Johanneyamil Cami [facility] 05/10/2020 03:45:00 AM EDT - 05/10/2020 03:45:00 AM EDT [facility] ([facility]) Attender: Miguel Ángel Almanza 05/10/2020 12:00:00 AM EDT [facility] ([facility]) Outpatient Attender: Diana PICKENS [facility] 05/05/2020 08:1 5:05 AM EDT [facility] Outpatient Attender: SHREYAS SHIELDS MD SJP-SJP.GVR 05/02/2020 08:03:04 AM EDT [facility] Outpatient 04/29/2020 05:15:00 AM EDT [facility] TEMPMHCTelemed 30" [facility]2020 11:15:00 AM EDT - 04/27/2020 11:15:00 AM EDT [facility] ([facility]) Attender: Miguel Ángel Almanza 04/27/2020 12:00:00 AM EDT [facility] ([facility]) [id number]"Psychotherapy [facility] 04/12/2020 11:45:00 AM EDT - 04/12/2020 11:45:00 AM EDT [facility] ([facility]) Attender: Miguel Ángel Almanza 04/12/2020 12:00:00 AM EDT [facility] ([facility]) Outpatient 03/30/2020 05:44:00 AM EDT [facility] TEMPMHCTelemed 30" Psychotherapy Attender: [facility] 03/28/2020 12:30:00 PM EDT - 03/28/2020 12:30:00 PM EDT [facility] ([facility]) Attender: Johanneyamil Cami 03/28/2020 12:00:00 AM EDT [facility] ([facility]) Outpatient Attender: Diana PICKENS FP 03/18/2020 02:1 3:00 PM EDT [facility] Outpatient Attender: NELIA PICKENS FP 03/16/2020 03:54:03 P M EDT [facility] Outpatient Attender: NELIA ALMARAZ 03/16/2020 09:56:00 A M EDT [facility] TEMPMHCTelemed 30" [facility] 03/14/2020 12:30:00 PM EDT - 03/14/2020 12:30:00 PM EDT [facility] ([facility]) Attender: Miguel Ángel Almanza 03/14/2020 12:00:00 AM EDT [facility] ([facility]) Outpatient Attender: Diana ALMARAZ 03/07/2020 02:0 4:00 PM EDT [facility] Outpatient Attender: Diana ALMARAZ 03/06/2020 12:0 6:02 AM EDT [facility] Outpatient Attender: NELIA ALMARAZ 03/06/2020 12:06:02 A M EDT [facility] Outpatient Attender: Diana ALMARAZ 03/01/2020 09:0 6:00 PM EDT [facility] Outpatient Attender: Diana ALMARAZ 02/26/2020 04:0 9:00 PM EDT [facility] [id number]"Psychotherapy Attender: Miguel Ángel Almanza [facility] 02/23/2020 11:45:00 AM EDT - 02/23/2020 11:45:00 AM EDT [facility] ([facility]) Attender: Miguel Ángel Almanza 02/23/2020 12:00:00 AM EDT [facility] ([facility]) Outpatient Attender: NELIA ALMARAZ 02/22/2020 04:14:01 P M EDT [facility] Outpatient Attender: NELIA ALMARAZ 02/19/2020 08:01:28 P M EDT [facility] Outpatient Attender: NELIA ALMARAZ 02/11/2020 01:34:00 P M EDT [facility] Outpatient Attender: El Rangel/Jayde/Jerman/Rein dl 02/08/2020 08:00:00 AM EDT [facility] ([facility] Extended Individual Psychotherapy - 45 min [facility] 02/04/2020 11:45:00 AM EDT - 02/04/2020 11:45:00 AM EDT [facility] ([facility]) Attender: Miguel Ángel Almanza 02/04/2020 12:00:00 AM EDT [facility] ([facility]) Outpatient Attender: AUDREY MELGAR [facility] Office 01/23 03:30:00 PM EDT [facility] ([facility] Outpatient 02/01/2020 12:34:00 PM EDT [facility] Outpatient Attender: Marielena Vasquez MDReferrer: Diana PICKENS 01/31/2020 10:13:12 PM EDT [facility] Recurring Patient Attender: Alcides ChReferrer: Callie WILLS 01/29/2020 01:38:26 PM EST [facility] Outpatient Attender: Diana PICKENS FP 01/28/2020 10:2 4:00 AM [facility] Outpatient Attender: AUDREY MELGAR [facility] Office 12/27 02:30:00 PM EST [facility] ([facility] Extended Individual Psychotherapy - 45 min Attender: [facility] 01/18/2020 11:45:00 AM EST - 01/18/2020 11:45:00 AM EST [facility] ([facility]) Attender: Miguel Ángel Cami 01/18/2020 12:00:00 AM EST [facility] ([facility]) Outpatient Attender: NELIA ALMARAZ 01/04/2020 04:21:00 P M [facility] Outpatient Referrer: SHREYAS BOOKER.EVANGELIST 12/30/2019 03:49:13 PM EST [facility] Outpatient Attender: SHREYAS SHIELDS MDReferrer: SHREYAS WOLFEEVANGELIST 12/23/2019 10:36:27 AM EST - 12/23/2019 11:30:08 AM [facility] Outpatient Attender: Diana PICKENS FP 12/15/2019 01:1 2:01 AM [facility] Outpatient Attender: NELIA ALMARAZ 12/15/2019 01:12:[address] [facility] Outpatient Attender: NELIA PICKENS FP 12/15/2019 01:11:02 A M [facility] Outpatient Attender: Diana PICKENS FP 12/15/2019 01:1 1:01 AM [facility] Outpatient Attender: Ignacio WILLS [facility] Format Proofreader s 12/14/2019 07:15:00 AM [facility] ([facility] Outpatient 12/08/2019 08:30:00 PM [facility] Outpatient Attender: Marielena Vasquez MDReferrer: Diana PICKENS 12/06/2019 08:20:14 PM EST [facility] Outpatient Attender: Diana PICKENS FP 12/06/2019 05:4 6:01 PM [facility] Outpatient Attender: NELIA PICKENS FP 12/03/2019 12:13:[address] [facility] Outpatient Attender: NELIA PICKENS FP 12/03/2019 11:41:[address] [facility] Outpatient Attender: NELIA PICKENS FP 12/03/2019 11:40:01 A M [facility] Outpatient Attender: NELIA PICKENS FP 12/02/2019 01:53:[address] [facility] Outpatient Attender: NELIA PICKENS FP 12/02/2019 01:47:[address] [facility] Outpatient Attender: NELIA PICKENS FP 12/02/2019 12:25:[address] [facility] Outpatient Attender: NELIA PICKENS FP 11/27/2019 09:14:[address] [facility] Recurring Patient Attender: Alcides ChReferrer: Callie WILLS 11/27/2019 08:41:53 AM EST [facility] Recurring Patient Attender: Alcides ChReferrer: Callie WILLS 11/27/2019 08:40:25 AM EST [facility] Outpatient Attender: NELIA PICKENS FP 11/20/2019 10:59:02 A M [facility] Outpatient Attender: Diana PICKENS FP 11/20/2019 10:5 8:00 AM [facility] Attender: Sarah Cobos 11/13/2019 12:00:00 AM EST [facility] ([facility]) Extended Individual Psychotherapy - 45 min Attender: Sarah Cobos [facility] 11/12/2019 03:00:00 AM EST - 11/12/2019 03:00:00 AM EST [facility] ([facility]) Functional Status Medications Medication Brand Name Start Date Product Form Dose Route Admi nistrative Instructions Pharmacy Instructions Status Indications Reaction Description Data Source(s) Inject Dexamthosone Phosphate 04295-571-25 12/20/2020 12:00:00 A M EST completed [facility] ([facility] Medication administered onsite Inject Triamcinolone Acetonide 10 ML, [facility] 4373-4969-29 12/20/2020 12:00:00 AM EST completed [facility] ([facility] Medication administered onsite Metoprolol Tartrate 25 MG Oral Tablet me toprolol tartrate (LOPRESSOR) 25 MG tablet metoprolol tartrate (LOPRESSOR) 25 MG tablet 12/07/2020 12:0 0:00 AM EST 25 mg Oral active Chest pain, unspecified typePalp itations Take 1 tablet (25 mg total) by mouth daily Take daily in the evening [facility] Chest pain, unspecified type Palpitations Cyclobenzaprine hydrochloride 5 MG Oral Tablet cyclobenzaprine (FLEXERIL) 5 MG tablet cyclobenzaprine (FLEXERIL) 5 MG tablet 11/04/2020 12:00:00 AM EST aborted TAKE 1 TABLET B Y MOUTH THREE TIMES A DAY NEEDED FOR MUSCLE SPASMS [facility] Prednisone 20 MG Oral Tablet predniSONE (DELTASONE) 20 MG tablet predniSONE (DELTASONE) 20 MG tablet 11/04/2020 12:00:00 AM EST aborted TAKE 3 TABLETS 60MG BY MOUTH DAILY [facility] zonisamide 100 MG Oral Capsule zonisamide (ZONEGRAN) 1 00 MG capsule zonisamide (ZONEGRAN) 100 MG capsule 10/19/2020 12:00:00 AM EST 100 mg Oral active Take 100 mg by mouth [facility] ferrous sulfate 325 MG Delayed Release O ral Tablet ferrous sulfate 325 (65 FE) MG EC tablet ferrous sulfate 325 (65 FE) MG EC tablet 08/16/2020 12 :00:00 AM EDT 1 {tbl} Oral active Take 1 tablet by mouth daily [facility] Ondansetron 4 MG Disintegrating Oral Tab let ondansetron (ZOFRAN-ODT) 4 MG disintegrating tablet ondansetron (ZOFRAN-ODT) 4 MG disintegrating tablet 08/16/2020 12:00:00 AM EDT active DISSOLVE ONE TABLET ON TONGUE TWICE A DAY NEEDED [facility] zonisamide 100 MG Oral Capsule Zonisamide 08/09/2020 12:00:00 AM EDT ORAL active [facility] ([facility] zonisamide 50 MG Oral Capsule zonisamide (ZONEGRAN) 50 MG capsule zonisamide (ZONEGRAN) 50 MG capsule 07/26/2020 12:00:00 AM EDT 50 mg Oral aborted Take 50 mg by mouth 2 (two) times a day [facility] zonisamide 25 MG Oral Capsule zonisamide (ZONEGRAN) 25 MG capsule zonisamide (ZONEGRAN) 25 MG capsule 06/21/2020 12:00:00 AM EDT aborted TAKE 1CAP.BY MOUTH IN P.M. X 1 WEEK 1CAP.2X/DAY X 1 WEEK THEN 1CAP IN A.M. 2 IN P.M. [facility] zonisamide 50 MG Oral Capsule Zonisamide 06/20/2020 12:00:00 AM EDT ORAL completed [facility] ([facility]) zonisamide 25 MG Oral Capsule Zonisamide 06/20/2020 12:00:00 AM EDT ORAL completed [facility] ([facility]) Inject Dexamthosone Phosphate 71386-782-43 06/13/2020 12:00:00 A M EDT completed [facility] ([facility] Medication administered onsite Inject Triamcinolone Acetonide 10 ML, [facility] 3434-1097-57 06/13/2020 12:00:00 AM EDT completed [facility] ([facility] Medication administered onsite Trazodone Hydrochloride 100 MG Oral Tablet trazodone 05/31 12:00:00 AM EDT 100 mg by mouth completed 195300 trazodone by mouth C38 [id number] 05/31/2020 at bedtime 100 mg tablet 29689 [id number] Jose Peters [id number] Psychiatric[facility]Mental Health [facility] ([facility]) Trazodone Hydrochloride 100 MG Oral Tablet TRAZODONE HCL 03/25/2020 12:00:00 AM EDT tablet 60 TAKE 1 & 1/2 TO 2 TABLETS BY MOUTH ONCE DAILY AT BEDTIME TAKE 1 & 1/2 TO 2 TABLETS BY MOUTH ONCE DAILY AT BEDTIME SOLD: 03/28/2020 [facility] Fluoxetine 20 MG Oral Capsule fluoxetine 03/24/2020 12:00:00 AM EDT 20 mg by mouth completed [id number] fluoxetine by mouth [id number] 2019 once a day 20 mg capsule 37865 [id number] Isidra Freeman [id number] [facility] ([facility]) Fluoxetine 20 MG Oral Capsule fluoxetine 03/24/2020 12:00:00 AM EDT 20 mg by mouth completed 523162 fluoxetine by mouth [id number] 2019 once a day 20 mg capsule 44706 [id number] Isidra Freeman [id number] [facility] ([facility]) Trazodone Hydrochloride 100 MG Oral Tablet trazodone 03/24 12:00:00 AM EDT 100 mg by mouth completed [id number] trazodone by mouth C38 288 03/24/2020 at bedtime 100 mg tablet 39719 [id number] Jose Peters [id number] [facility] ([facility]) 25 mg 03/17/2020 12:00:00 AM EDT tablet 60 TAKE ONE TABLET BY MOUTH TWICE A DAY TAKE ONE TABLET BY MOUTH TWICE A DAY SOLD: 03/28/2020 [facility] 40 mg 03/17/2020 12:00:00 AM EDT tablet 30 TAKE ONE TABLET BY MOUTH EVERY DAY AT BEDTIME TAKE ONE TABLET BY MOUTH EVERY DAY AT BEDTIME SOLD: 03/28/2020 [facility] 10 mg 03/17/2020 12:00:00 AM EDT tablet 30 TAKE ONE TABLET BY MOUTH EVERY DAY TAKE ONE TABLET BY MOUTH EVERY DAY SOLD: 03/28/2020 [facility] 500 mg 03/17/2020 12:00:00 AM EDT tablet 60 TAKE ONE TABLET BY MOUTH THREE TIMES A DAY NEEDED FOR PAIN TAKE ONE TABLET BY MOUTH THREE TIMES A D AY NEEDED FOR PAIN SOLD: 03/28/2020 [facility] Mineral Oil 1000 MG/ML Oral Solution Mineral Oil 02/08/2020 12:00:00 AM EDT active [facility] ([facility], ) Inject Triamcinolone Acetonide 10 ML, [facility] [id number] 02/02/2020 12:00:00 AM EDT completed [facility] ([facility] Medication administered onsite Inject Dexamthosone Phosphate [id number] 02/02/2020 12:00:00 A M EDT completed [facility] ([facility] Medication administered onsite 5-325 mg 02/01/2020 12:00:00 AM EDT tablet 12 TAKE 1 TABLET BY MOUTH EVERY 5-6 HOURS MAXIMUM DAILY DOSE = 4 TABLETS TAKE 1 TABLET BY MOUTH EVERY 5-6 HOURS MAXIMUM DAILY DOSE = 4 TABLETS SOLD: 02/01/2020 [facility] Prednisone 10 MG Oral Tablet Prednisone 01/19/2020 12:00:00 AM EST active [facility] ([facility] 10 mg 01/19/2020 12:00:00 AM EST tablet 32 TAKE 4 TABLETS BY MOUTH ONCE DAILY FOR 5 DAYS, THEN 3 TABLETS DAILY FOR 2 DAYS, THEN 2 TABLETS DAILY FOR 2 DAYS, THEN 1 TABLET DAILY FOR 2 DAYS TAKE 4 TABLETS BY MOUTH ONCE DAILY FOR 5 DAYS, THEN 3 TABLETS DAILY FOR 2 DAYS, THEN 2 TABLETS DAILY FOR 2 DAYS, THEN 1 TABLET DAILY FOR 2 DAYS SOLD: 01/20/2020 [facility] Metoprolol Tartrate 25 MG Oral Tablet me toprolol tartrate (LOPRESSOR) 25 MG tablet metoprolol tartrate (LOPRESSOR) 25 MG tablet 25 mg Ora l aborted Take 25 mg by mouth 2 (two) times a day [facility] Insurance Providers Payer name Policy type / Coverage type Policy ID Covered alliance party ID Covered alliance party's relationship to vale Policy Vale Plan Information HUMANA GOLD [id number] SP [id number] MEDICARE COMPLETE-[facility] O [id number] S [id number] HUMANA MEDICARE [id number] Kiana [id number] MEDICAID [id number] Kiana [id number] MEDICARE COMPLETE [id number] SP [id number] MEDICARE COMPLETE [id number] SP [id number] HUMANA MEDICARE [id number] MEDICAID [id number] [place]ED[place] [id number] SP [id number] [facility] [id number] SP [id number] JCPENNEY SP MEDICAID M [id number] S [id number] [facility] O [id number] S [id number] [facility] SP OTHER WORKERS COMPENSATION [id number] SP [id number] Medicaid S [id number] S [id number] [facility] Secure Horizons P [id number] S [id number] [facility] Comm Plan Medicare F [id number] SELF [id number] Medicaid [facility] Healthcare S D [id number] SELF [id number] Medicaid S [id number] S [id number] [facility] MEDICARE [id number] Kiana [id number] 73 MEDICARE COMPLETE-[facility] O [id number] S [id number] MEDICAID [id number] SP [id number] MEDICAID M [id number] S [id number] Medicare Wrap O [id number] S [id number] [facility] Secure Horizons P [id number] S [id number] [facility] MEDICARE [id number] Medicare Wrap O [id number] S [id number] MEDICARE [id number] Kiana [id number] Medicaid S [id number] S [id number] MEDICAID M [id number] Self [id number] MEDICARE A [id number] Self [id number] A [place] Medig[place] Part B [id number] Self [id number] [place] Primary [id number] Self [id number] Medicaid [facility] Healthcare S D [id number] SELF [id number] Medicaid Medicaid [id number] Self [id number] [facility] Comm Dual Plan Commercial [id number] Self [id number] Medicaid Medicaid [id number] Self [id number] [facility] Comm Dual Plan Commercial [id number] Self [id number] Medicaid Medicaid [id number] Self [id number] [facility] Comm Dual Plan Commercial [id number] Self [id number] Medicaid Medicaid [id number] Self [id number] [facility]hc Comm Dual Plan Commercial [id number] Self [id number] MEDICARE [id number] SP [id number] Medicare S [id number] S [id number] [facility] Hor[facility]ons P [id number] S [id number] Managed Care - Community Plan [facility] P [id number] S [id number] MEDICARE COMPLETE [id number] SP [id number] Medicare P [id number] S [id number] [facility] MEDICARE PI PI MEDICAID PI PI [facility] Maintenance Organization (HMO) [id number] Self [id number] MEDICARE [id number] Kiana [id number] A [place] Medigap Part B [id number] Self [id number] [place] Medicare Primary [id number] Self [id number] Medicare P [id number] S [id number] [place] B [id number] Self [id number] [place] Medicare Primary [id number] Self [id number] MEDICARE [id number] SP [id number] A MEDICAID [id number] SP [id number] Medicare C [id number] SELF [id number] [id number] DME Jurisdiction A [place] C [id number] SELF [id number] Medicaid [facility] Healthcare S D [id number] SELF [id number] Medicare C [id number] SELF [id number] A MEDICAID [id number] SP [id number] MEDICAID [id number] SP [id number] Medicaid S [id number] S [id number] MEDICARE C [id number] S [id number] A [place] Med[place] Part B [id number] Self [id number] [place]/N[place] Medicare Primary [id number] Self [id number] Medicaid Medicaid [id number] Self [id number] Medicare Medicare Primary [id number] Self [id number] Medicare C [id number] SELF [id number] [place] [id number] Self [id number] [place] Medicare Primary [id number] Self [id number] [place] B [id number] Self [id number] [place]/N[place] Medicare Primary [id number] Self [id number] MEDICAID -RECURRING [id number] 1 [id number] MEDICARE -RECURRING [id number] 18 [id number] Medicaid S [id number] S [id number] MEDICAID [id number] S [id number] [facility] MEDICARE DIVISION [id number] S [id number] MEDICARE - [place] [id number] S [id number] Medicare P [id number] S [id number] A Medicaid S [id number] S [id number] MEDICARE [id number] SP [id number] [place] [id number] Self [id number] [place]/N[place] Primary [id number] Self [id number] [place] B [id number] Self [id number] [place]/N[place] Medicare Primary [id number] Self [id number] MEDICARE [id number] SP [id number] A [place]ig[place] B Self [place] Primary Self MEDICAID [id number] SP [id number] MEDICAID [id number] SP [id number] MEDICAID [id number] SP [id number] MEDICAID [id number] SP [id number] MEDICAID [id number] SP [id number] Medicaid [facility] Healthcare S D [id number] SELF [id number] Medicaid Medigap Part B Self Medicare Medicare Primary Self MEDICAID [id number] SP [id number] MEDICARE [id number] SP [id number] SELF PAY UNAVAILABLE SP UNAVAILA BLE [id number] Problems, Conditions, and Diagnoses Code Display Name Description Problem Type Effective Dates Data Source(s) F33.9 Major depressive disorder, recurrent, un specified Major Depressive Disorder, Recurrent episode, Unspecified Condition 12/22/2020 12:00:00 AM EST [facility] ([facility]) Other synovitis and tenosynovitis, left ankle and foot Other synovitis and tenosynovitis, left ankle and foot Problem 08/22/2020 12:00:00 AM ED T [facility] ([facility] 787.02 Nausea Nausea 08/15/2020 07:31:29 PM ED T [facility] [id number] Pain in limb Pain in limb Problem 06/25/2020 12:0 0:00 AM EDT - 08/22/2020 12:00:00 AM EDT [facility] ([facility] Other synovitis and tenosynovitis, right ankle and foot Other synovitis and tenosynovitis, right ankle and foot Problem 06/25/2020 12:00:0 0 AM EDT - 08/22/2020 12:00:00 AM EDT [facility] ([facility] F41.9 Anxiety disorder, unspecified Unspecified Anxiety Diso rder Condition 05/20/2020 12:00:00 AM EDT [facility] ([facility]) V65.8 Person consulting for explanation of exa mination or test findings Person consulting for explanation of examination or test findings 03/16/2020 03:52:29 PM EDT [facility] [id number] Migraine, unspecified, not intractable, without status migrainosus Migraine, unspecified, not intractable, without status migrainosus 03/16/2020 03:52:29 PM EDT [facility] 784.0 Generalized headache Generalized headache 03/16 03:52:29 PM EDT [facility] [id number] Ganglion of ankle and foot Ganglion of ankle and foot Problem 02/18/2020 12:00:00 AM EDT - 06/25/2020 12:00:00 AM EDT [facility] ([facility] Other synovitis and tenosynovitis, left ankle and foot Other synovitis and tenosynovitis, left ankle and foot Problem 01/23/2020 12:00:00 AM EST - 02/18/2020 12:00:00 AM EDT [facility] ([facility] Other synovitis and tenosynovitis, right ankle and foot Other synovitis and tenosynovitis, right ankle and foot Problem 01/23/2020 12:00:0 0 AM EST - 02/18/2020 12:00:00 AM EDT [facility] ([facility] Z86.711 Personal history of pulmonary embolism P ersonal history of pulmonary embolism Diagnosis 12/07/2020 01:01:38 PM EST [facility] E66.01 Morbid (severe) obesity due to excess ca lories Morbid (severe) obesity due to excess ca Diagnosis 12/07/2020 01:01:38 PM EST [facility] R07.9 Chest pain, unspecified Chest pain, unspecified Diagno sis 12/07/2020 01:01:38 PM [facility] R42 Dizziness and giddiness Dizziness and giddiness Diagno sis 12/07/2020 01:01:38 PM EST [facility] I26.99 Other pulmonary embolism without acute c or pulmonale Other pulmonary embolism without acute c Diagnosis 12/07/2020 01:01:38 PM EST [facility] J45.20 Mild intermittent asthma, uncomplicated Mild intermittent asthma, uncomplicated Diagnosis 12/07/2020 01:01:38 PM EST [facility] E78.49 Other hyperlipidemia Other hyperlipidemia Diagnosis 12/07/2020 01:01:38 PM EST [facility] R00.2 Palpitations Palpitations Diagnosis 12/07/2020 01:01:38 P M EST [facility] I49.3 Ventricular premature depolarization Ventricular premature depolarization Diagnosis 05/24/2020 02:12:31 PM EDT [facility] Surgeries/Procedures Procedure Description Date Indications Data Source(s) Extended Individual Psychotherapy - 45 min 12/22/2020 12:00:00 AM EST - 12/22/2020 12:00:00 AM EST [facility] ([facility]) Extended Individual Psychotherapy - 45 min 12:00:00 AM EST [facility] ([facility]) ARTHROCENTESIS ASPIR&/INJECTION INTERM JT/BURSA 2020 12:00:00 AM EST [facility] ([facility] ECG ROUTINE ECG W/LEAST 12 LDS W/I&R POCT AMB EKG Routine 12/07/2020 1:04 PM EST Palpitations Chest pain, unspecified type 12/07/2020 06:04:00 PM EST Ches t pain, unspecified typePalpitations [facility] Chest pain, unspecified type Palpitations Extended Individual Psychotherapy - 45 min 12/05/2020 12:00:00 AM EST - 12/05/2020 12:00:00 AM EST [facility] ([facility]) Extended Individual Psychotherapy - 45 min 1 12:00:00 AM EST [facility] ([facility]) MHC Telemed E/M Lvl 3--Est pt 11/21/2020 12:00:00 AM EST - 11/21/2020 12:00:00 AM EST [facility] ([facility]) Telemed A/O 30" 11/21/2020 12:00:00 AM EST [facility] ([facility]) MHC Telemed E/M Lvl 3--Est pt 11/21/2020 12:00:[address] [facility] ([facility]) Extended Individual Psychotherapy - 45 min 11/01/2020 12:00:00 AM EST - 11/01/2020 12:00:00 AM EST [facility] ([facility]) Extended Individual Psychotherapy - 45 min 0 12:00:00 AM EST [facility] ([facility]) Extended Individual Psychotherapy - 45 min 10/05/2020 12:00:00 AM EST - 10/05/2020 12:00:00 AM EST [facility] ([facility]) Extended Individual Psychotherapy - 45 min 0 12:00:00 AM EST [facility] ([facility]) Extended Individual Psychotherapy - 45 min 09/20/2020 12:00:00 AM EDT - 09/20/2020 12:00:00 AM EDT [facility] ([facility]) Extended Individual Psychotherapy - 45 min 0 12:00:00 AM EDT [facility] ([facility]) MHC Telemed E/M Lvl 3--Est pt 08/29/2020 12:00:00 AM EDT - 08/29/2020 12:00:00 AM EDT [facility] ([facility]) Telemed A/O 30" 08/29/2020 12:00:00 AM EDT [facility] ([facility]) MHC Telemed E/M Lvl 3--Est pt 08/29/2020 12:00:00 AM E DT [facility] ([facility]) Extended Individual Psychotherapy - 45 min 08/26/2020 12:00:00 AM EDT - 08/26/2020 12:00:00 AM EDT [facility] ([facility]) Extended Individual Psychotherapy - 45 min 0 12:00:00 AM EDT [facility] ([facility]) RADEX ANKLE COMPLETE MINIMUM 3 VIEWS 08/19/2020 12:00: 00 AM EDT [facility] ([facility]) RADEX FOOT COMPLETE MINIMUM 3 VIEWS 08/19/2020 12:00:0 0 AM EDT [facility] ([facility]) RADEX ANKLE COMPLETE MINIMUM 3 VIEWS 08/19/2020 12:00: 00 AM EDT [facility] ([facility]) RADEX FOOT COMPLETE MINIMUM 3 VIEWS 08/19/2020 12:00:0 0 AM EDT [facility] ([facility]) ELECTROENCEPHALOGRAM W/REC AWAKE&ASLEEP 07/18/2020 12: 00:00 AM EDT [facility] ([facility]) ELECTROENCEPHALOGRAM W/REC AWAKE&ASLEEP 07/18/2020 12: 00:00 AM EDT [facility] ([facility] ) THERAPEUTIC PX 1/> AREAS EACH 15 MIN EXERCISES 12:00:00 AM EDT [facility] ([facility] ) Needle electromyography, each extremity, with related paraspinal areas, when performed, done with nerve conduction, amplitude and latency/velocity study; complete, five or more muscles studied, innervated by three or more nerves or four or more spinal levels (list separately in addition to the code for primary procedure). 07/05/2020 12:00:00 AM EDT [facility] T ([facility] ) Needle electromyography, each extremity, with related paraspinal areas, when performed, done with nerve conduction, amplitude and latency/velocity study; complete, five or more muscles studied, innervated by three or more nerves or four or more spinal levels (list separately in addition to the code for primary procedure). 07/05/2020 12:00:00 AM EDT MED[facility] T ([facility] ) Needle Electromyography Non Extremity Done With Nerve Conduc tion 07/05/2020 12:00:00 AM EDT [facility] ([facility] ) 26286 Nerve conduction studies 13 or more studies NEW 201207/05/2020 12:00:00 AM EDT [facility] ([facility] ) THERAPEUTIC PX 1/> AREAS EACH 15 MIN EXERCISES 12:00:00 AM EDT [facility] ([facility] ) THERAPEUTIC PX 1/> AREAS EACH 15 MIN EXERCISES 12:00:00 AM EDT [facility] ([facility] ) Magnetic Resonance Angiography Neck W/O Contrast Materials 06/28/2020 12:00:00 AM EDT [facility] ([facility] ) Magnetic Resonance Angiography Neck W/O Contrast Materials 06/28/2020 12:00:00 AM EDT [facility] ([facility] ) MRI BRAIN BRAIN STEM W/O CONTRAST MATERIAL 06/28/2020 12:00:00 AM EDT [facility] ([facility] ) MRI BRAIN BRAIN STEM W/O CONTRAST MATERIAL 06/28/2020 12:00:00 AM EDT [facility] ([facility] ) APPLICATION MODALITY 1/> AREAS HOT/COLD PACKS 06/27/20 12:00:00 AM EDT [facility] ([facility] ) THERAPEUTIC PX 1/> AREAS EACH 15 MIN EXERCISES 12:00:00 AM EDT [facility] ([facility] ) THERAPEUTIC PX 1/> AREAS EACH 15 MIN EXERCISES 12:00:00 AM EDT [facility] ([facility] ) THERAPEUTIC PX 1/> AREAS EACH 15 MIN EXERCISES 12:00:00 AM EDT [facility] ([facility] ) APPLICATION MODALITY 1/> AREAS HOT/COLD PACKS 06/13/20 12:00:00 AM EDT [facility] ([facility] ) THERAPEUTIC PX 1/> AREAS EACH 15 MIN EXERCISES 12:00:00 AM EDT [facility] ([facility] ) INJECTION 1 TENDON SHEATH/LIGAMENT APONEUROSIS 12:00:00 AM EDT [facility] ([facility] APPLICATION MODALITY 1/> AREAS HOT/COLD PACKS 06/10/20 12:00:00 AM EDT [facility] ([facility] ) THERAPEUTIC PX 1/> AREAS EACH 15 MIN EXERCISES 12:00:00 AM EDT [facility] ([facility] ) Physical Therapy Eval - Low Complexity 06/08/2020 12:0 0:00 AM EDT [facility] ([facility]) [id number]"Psychotherapy 0 12:00:00 AM EDT - 05/20/2020 12:00:00 AM EDT [facility] ([facility]) [id number]"Psychotherapy 05/20/2020 12:00:00 AM EDT [facility] ([facility]) MRI Lower Extremity Any Joint 05/16/2020 12:00:00 AM E DT [facility] ([facility] ) MRI Lower Extremity Any Joint 05/16/2020 12:00:00 AM E DT [facility] ([facility] ) MRI Lower Extremity Any Joint 05/16/2020 12:00:00 AM E DT [facility] ([facility] ) MRI Lower Extremity Any Joint 05/16/2020 12:00:00 AM E DT [facility] ([facility]) [id number]"Psychotherapy 0 12:00:00 AM EDT - 05/10/2020 12:00:00 AM EDT [facility] ([facility]) [id number]"Psychotherapy 05/10/2020 12:00:00 AM EDT [facility] ([facility]) TEMPMHCTelemed 30" Psychotherapy 12:00:00 AM EDT - 04/27/2020 12:00:00 AM EDT [facility] ([facility]) TEMPMHCTelemed 30" Psychotherapy 04/27/2020 12:00:00 A M EDT [facility] ([facility]) [id number]"Psychotherapy 0 12:00:00 AM EDT - 04/12/2020 12:00:00 AM EDT [facility] ([facility]) [id number]"Psychotherapy 04/12/2020 12:00:00 AM EDT [facility] ([facility]) TEMPMHCTelemed 30" Psychotherapy 12:00:00 AM EDT - 03/28/2020 12:00:00 AM EDT [facility] ([facility]) TEMPMHCTelemed 30" Psychotherapy 03/28/2020 12:00:00 A M EDT [facility] ([facility]) TEMPMHCTelemed 30" Psychotherapy 020 12:00:00 AM EDT - 03/14/2020 12:00:00 AM EDT [facility] ([facility]) TEMPMHCTelemed 30" Psychotherapy 03/14/2020 12:00:00 A M EDT [facility] ([facility]) Remove Impacted Cerumen 02/23/2020 12:00:00 AM EDT [facility] ([facility] ) [id number]"Psychotherapy 0 12:00:00 AM EDT - 02/23/2020 12:00:00 AM EDT [facility] ([facility]) [id number]"Psychotherapy 02/23/2020 12:00:00 AM EDT [facility] ([facility]) Remove Impacted Cerumen 02/08/2020 12:00:00 AM EDT [facility] ([facility], ) Extended Individual Psychotherapy - 45 min 02/04/2020 12:00:00 AM EDT - 02/04/2020 12:00:00 AM EDT [facility] ([facility]) Extended Individual Psychotherapy - 45 min 0 12:00:00 AM EDT [facility] ([facility]) ASPIRATION&/INJECTION GANGLION CYST ANY LOCATION 02/01 12:00:00 AM EDT [facility] ([facility] Strapping Foot Or Ankle 01/19/2020 12:00:00 AM EST [facility] ([facility] Extended Individual Psychotherapy - 45 min 01/18/2020 12:00:00 AM EST - 01/18/2020 12:00:00 AM EST [facility] ([facility]) Extended Individual Psychotherapy - 45 min 0 12:00:00 AM EST [facility] ([facility]) Electrocardiogram Complete 12/14/2019 12:00:00 AM EST [facility] ([facility]) Extended Individual Psychotherapy - 45 min 11/13/2019 12:00:00 AM EST - 11/13/2019 12:00:00 AM EST [facility] ([facility]) Extended Individual Psychotherapy - 45 min 9 12:00:00 AM EST [facility] ([facility]) Results ID Date Data Source [id number] 12/23/2020 06:31:00 PM EST [facility] Name Value Range Interpretation Code Description Data Jennifer rce(s) Supporting Document(s) SARS coronavirus 2 RNA [Presence] in Res piratory specimen by FILIPPO with probe detection NEGATIVE [facility] This lab was ordered by [facility] a nd reported by [facility]. ID Date Data Source [id number] 12/23/2020 05:13:00 PM EST [facility] Name Value Range Interpretation Code Description Data Jennifer rce(s) Supporting Document(s) SARS COVID ANTIGEN NEGATIVE [facility] This lab was ordered by [facility]ma nd reported by [facility]. ID Date Data Source [id number] 10/31/2020 11:02:00 AM EST [facility] ([facility], ) Name Value Range Interpretation Code Description Data Jennifer rce(s) Supporting Document(s) Laboratory test finding (navigational concept) Laboratory test result [facility] ([facility], ) ID Date Data Source [id number] 08/15/2020 05:48:12 PM EDT [facility] Measurements & CalculationsHeight: 62 inches (5 ft. 2 in.) 157.48 cm Weight: 231 pounds 8 oz. 105.23 kg Body Mass Index (BMI): 42.49BMI Interpretation: Morbidly ObeseBody Surface Area (BSA): 2.04Weight Management Education Done (Nutrition/Physical Activity)Vital SignsTemperature: 97.6FPulse Rate: 68 beats/minuteRespiratory Rate: 14 respirations/minuteBlood Pressure: 130/86 O2 Saturation: 68% Vital Signs performed by: Cassie Torres LPN, August 15, 2020 5:48 PMVital Signs performed by: Cassie Torres LPN, August 15, 2020 5:48 PMInitial Intake Information From: patientRoom #: 12Infectious Disease / Travel ScreeningRecent travel for you or any close contacts? NoHave you had any close contact with anyone diagnosed with or under investigation for COVID-19 (coronavirus)? NoFever? NoRespiratory symptoms: cough, cold, congestion, shortness of breath, difficulty breathing? YesLoss of smell? NoLoss of taste? NoDetails: Asthma Smoking, Tobacco, Vaping or Smoke Exposure StatusSmoke Status: never smokerTobacco Use: NoDo you vape? NoMenstrual HistoryAny possibility of ? NoComments: Total HysterectomyHealthcare HistorySince your last office visit...Have you been admitted to the hospital? NoHave you been to an emergency room (ER) or urgent care clinic? NoHave you seen another healthcare provider? Yes - ENT, Dr Naranjo you seen a dentist? Yes - [facility] performed by: Cassie Torres LPN, August 15, 2020 5:50 PMRate Your HealthIn general, would you say your health is? PoorPain AssessmentAre you currently having any pain which... You would like your provider to address? Yes Affects your activity level? YesDepression Screening - PHQ-2Over the last two weeks, have you... Had little interest or pleasure in doing things? Nearly every day Been feeling down, depressed, or hopeless? Nearly every day PHQ-2 Score: 6Anxiety Screening - MIESHA-2Over the last two weeks, have you been... Feeling nervous, anxious, or on edge? Nearly every day Unable to stop or control worrying? Nearly every day MIESHA-2 Score: 6Generalized Anxiety Disorder 7- Item Screening (MIESHA-7)Answer Guide:0 = Not at all1 = Several days2 = Over half the days3 = Nearly every dayOver the last 2 weeks, how often have you been bothered by the following problems?Feeling nervous, anxious, or on edge: 3Not being able to stop or control worryinWorrying too much about different things: 3Trouble relaxinBeing so restless that it's hard to sit still: 3Becoming easily annoyed or irritable: 3Feeling afraid as if something awful might happen: 3Answer Guide:0 = Not difficult at all1 = Somewhat difficult2 = Very difficult3 = Extremely difficultHow difficult have these made it for you to do your work, take care of things at home, or get along with other people? 3GAD-7 Screening Results MIESHA-2 Score: 6GAD-7 Score: 21Functional Impairment: Extremely difficultRecommendation: Severe anxietyPHQ-9 1. Over the last 2 weeks, patient reports the following frequency of symptoms: a. Little interest or pleasure in doing things -Nearly every day b. Feeling down, depressed, or hopeless -Nearly every day c. Trouble falling asleep, staying asleep, or sleeping too much -Nearly every day d. Feeling tired or having little energy -Nearly every day e. Poor appetite or overeating -Nearly every day f. Feeling bad about yourself, feeling that you are a failure, or feeling that you have let yourself or your family down -Nearly every day g. Trouble concentrating on things such as reading the newspaper or watching television -Not at all h. Moving or speaking so slowly that other people could have noticed. Or being so fidgety or restless that you have been moving around a lot more than usual -Not at all i. Thinking that you would be better off or that you want to hurt yourself in some way -Not at all2. If you checked off any problems, how difficult have these problems made it for you to do your work, take care of things at home, or get along with other people? -Extremely DifficultToday's PHQ-9 Results Score: 18 Severity: Moderately Severe Diagnosis Recommendation: Major Depression Functional Impairment: Extremely DifficultTo's Follow-Up Action Depression follow-up done. Follow-Up Action: continue To Take Medications as Prescribed. follows with specialistPain AssessmentPain ScaleNumeric Rating Scale: 8 / 10Location: Low backDuration: 2 weeksFrequency: DailyCharacter/Quality: sharp, pinching and stingingIs the pain radiating? YesTo what body part(s) is the pain radiating? upper backScreening, Brief Interve ntion, & Referral to Treatment (SBIRT)Pre-Screening Questions How many times have you have 4 or more drinks in a day? 0How many times have you used an illegal drug or used a prescription medication for a non-medical reason? 0Performed by: Cassie Torres LPN, August 15, 2020 5:57 PMPatient History Medical History:High CholesterolAsthma AllergiesGERDdepression/anxietySurgical History: sections 2003 and 2007tonsillectomy 2011carpal tunnel right handtendon repair left handTAHbil ctr gian wrist surgery cyst removed from headleft foot bone spur removed Family History:Family History of ArthritisFamily History of AsthmaFH DiabetesFH HypertensionFH SeizuresFH Other CancerSocial/Personal History:Patient and fiance' are homelessNo petsFiance' smokes Chief Complaint lab results room 12follow-up visitHistory of Present Illness (HPI)40 YO female here for follow up on labs,need refills. PT refused Flu Vaccine.Pt states increase nausea with headaches. Pt states took zofran in the past with positive effect. HPI performed by: Diana Metzger WATER SUPERVISOR, August 15, 2020 7:23 PMTransitions of Care InboundProblem ReviewProblem List was reviewed and/or updated during this visit.Medication Reconciliation & ReviewMedication List was reviewed and/or updated during this visit, including review of any nbaw-ubv-cifhqtu medications, herbal therapies, and/or supplements.Allergy ReviewAllergy List was reviewed and/or updated during this visit.Adult Preventive CareProvider Calculated and Reviewed all Clinical Protocols for patient today. Labs/Meds/Other Counseling-Nutrition and Physical Activity:BMI Interpretation: Morbidly Obese (08/15/2020) Counseling: Done (08/15/2020) Physical Activity: Done (08/15/2020)Cancer Screening Pap Smear/HPV TestingReviewed: Patient Refused Pap SmearPrevious Comments: needs referral (09/28/2019)Today's Comments: Total Hysterectomy Review of Systems General: Denies loss of appetite, chills, dizziness, fatigue, fever, continued fever, headache, feeling ill, sweats, night sweats, sleep disturbances, weight loss. Eyes: Denies blurring of vision, double vision, irritation, discharge, vision loss, eye pain, eye swelling, droopy eyelid, sensitivity to light, redness, itching. Ears/Nose/Throat: Denies earache, ear discharge, ringing in ears, decreased hearing, nasal congestion, nosebleeds, runny nose, sore throat, hoarseness, difficulty swallowing, dry mouth, tooth pain, bleeding gums, swollen glands. Cardiovascular: Denies chest pain, palpitations, feeling faint, trouble breathing w/exertion, SOB upon lying down, SOB at night, peripheral edema, elevated blood pressure, decreased heart rate. Respiratory: Denies cough, difficulty breathing, shortness of breath, excessive sputum, coughing up blood, wheezing, chest pain. Gastrointestinal: Complains of nausea. Denies vomiting, bleeding, burning, itching, irritation, cramps, diarrhea, constipation. Genitourinary: Denies urinary incontinence, pain with urination, burning with urination, urinary frequency, urinary hesitancy, urinary urgency, urinary urgency at night, incomplete emptying, blood in urine, pelvic pain. Musculoskeletal: Denies back pain, joint pain, leg pain, other pain-see comments, joint swelling, body aches, muscle aches, muscle cramps, muscle weakness, stiffness, recent injury. Skin: Denies rash, hives, redness, itching, dryness, nail changes, suspicious lesions, athlete's foot, rash on palms, rash on bottom of feet. Neurologic: Denies muscle impairment, weakness, numbness/tingling, seizures, slurred speech, feeling faint, tremors, vertigo, paralysis on one side, paralysis on both sides. Psychiatric: Complains of depression, anxiety. Denies memory loss, mental disturbance, suicidal ideation, homicidal ideation, hallucinations, paranoia, feeling stressed, hearing voices. Endocrine: Denies cold intolerance, heat intolerance, excessive thirst, excessive hunger, excessive urination, weight loss, weight gain. Heme/Lymphatic: Denies abnormal bruising, bleeding, enlarged lymph nodes. Physi alberto ExamGeneral Appearance: well nourished, well hydrated, no acute distressEyes, External: conjunctivae and lids normal, EOMIRespiratory, Auscultation: clear to auscultation bilaterally; no rales, rhonchi, or wheezesRespiratory, Effort: no intercostal retractions or use of accessory musclesCardiovascular, Auscultation: S1, S2 audible; no murmur, rub, or gallop; RRRPeripheral Circulation: no clubbing, cyanosis, edema, or varicositiesAbdomen: soft, non-tender, no masses, bowel sounds normalGait & Station: normalSkin, Inspection: no rashes, lesions, or ulcerationsOrientation: oriented to time, roderick ce, and personMood & Affect: no depression, anxiety, or agitationJudgment & Insight: intactCare Management Plan Transitions of CareInboundRate Your HealthIn general, would you say your health is? PoorAssessment & Plan Problems:Added: Nausea (ICD-787.02) (URI56-P22.0) Assessment: Instructions: script sent too pharmacy for you today.Assessed:Person consulting for explanation of examinat ion or test findings (ICD-V65.8) (TVZ71-E66.2) Assessment: Instructions: We have reviewed your lab results with you todayHypertension (ICD-401.9) (ICD10- I10) Assessment: Instructions: Your blood pressure is at goal today. Please continue medications as prescribed. Please continue lifestyle changes to include healthy diet and physical activities. Please try to avoid added sodium in your diet.HYPERLIPIDEMIA (ICD-272.4) (OJD19-S10.5) Assessment: cholesterol level significantly elevated. Pt states ran out of medication. Instructions: Please continue medications as prescribed. Please continue lifestyle changes to include healthy diet and physical activities. Please try to limit sugars, carbohydrates, and fats in your diet. Please try to avoid processed foods.Patient Instructions/Care Plan: Nausea: script sent too pharmacy for you today.Person consulting for explanation of examination or test findings: We have reviewed your lab results with you todayHypertension: Your blood pressure is at goal today. Please continue medications as prescribed. Please continue lifestyle changes to include healthy diet and physical activities. Please try to avoid added sodium in your diet.HYPERLIPIDEMIA: Please continue medications as prescribed. Please continue lifestyle changes to include healthy diet and physical activities. Please try to limit sugars, carbohydrates, and fats in your diet. Please try to avoid processed foods. Plan developed in collaboration with patient and/or familyMedications:ONDANSETRON 4 MG ORAL TABLET DISINTEGRATINGZONISAMIDE 100 MGVITAMIN D3 18831 UNIT ORAL CAPSULETYLENOL EXTRA STRENGTH 500 MG ORAL TABLETNYSTATIN 261095 UNIT/GM EXTERNAL OINTMENTIMITREX 25 MG ORAL TABLETTRAZODONE HCL 100 MG ORAL TABLETATORVASTATIN CALCIUM 40 MG ORAL TABLETMETOPROLOL TARTRATE 25 MG ORAL TABLETBREO ELLIPTA 100-25 MCG/INH INHALATION AEROSOL POWDER BREATH ACTIVATEDFLUOXETINE HCL 40 MG ORAL CAPSULECLARITIN 10 MG ORAL TABLETOMEPRAZOLE 40 MG ORAL CAPSULE DELAYED RELEASEALBUTEROL SULFATE HFA 108 (90 BASE) MCG/ACT INHALATION AEROSOL SOLUTIONFERROUS SULFATE 325 (65 FE) MG ORAL TABLET DELAYED RELEASEMedication Changes:Added: * ZONISAMIDE 100 MG-take one capsule dailyRefilled:ATORVASTATIN C ALCIUM 40 MG ORAL TABLET-1 tab by mouth every night at bedtime Qty: 30[Tablet] Refills: 5 Method: ElectronicMETOPROLOL TARTRATE 25 MG ORAL TABLET-1 tab by mouth twice per day Qty: 60[Tablet] Refills: 5 Method: ElectronicFERROUS SULFATE 325 (65 FE) MG ORAL TABLET DELAYED RELEASE-1 tab by mouth every day Qty: 30[Tablet] Refills: 5 Method: ElectronicOMEPRAZOLE 40 MG ORAL CAPSULE DELAYED RELEASE-1 pill po daily Qty: 30[Capsule] Refills: 5 Method: ElectronicNew Prescription:ONDANSETRON 4 MG ORAL TABLET DISINTEGRATING-one tablet by mouth twice daily as needed Qty: 15[Tablet] Refills: 2 Method: ElectronicAllergies:NSAIDS (Critical)ASPIRIN (Moderate)IBUPROFEN (Moderate)Orders:COMP METABOLIC PANEL [CPT-80235] CBC W/DIFF [CPT-99984] LIPID PANEL [CPT-97411] HgBA1c [CPT-77334] Vitamin D 250H Unspecified [CPT-54992] Adult - Ofc Vst, EST, Level IV [CPT-63121] Follow-Up Return to clinic: 3 months for follow up Clinical Visit Summary CompletedMedications:ONDANSETRON 4 MG ORAL TABLET DISINTEGRATING (ONDANSETRON) one tablet by mouth twice daily as needed #15[Tablet] x 2 Route:ORAL Entered and Authorized by: Diana PICKENS Method used: Electronically to [facility] (retail) [address] [place] [address] Ph: [phone] Note to Pharmacy: Route: ORAL; Indications: NAUSEA RxID: [id number] 40 MG ORAL CAPSULE DELAYED RELEASE (OMEPRAZOLE) 1 pill po daily #30[Capsule] x 5 Entered and Authorized by: Diana PICKENS Method used: Electronically to [facility] (retail) [address] [place] [address] Fax: RxID: [id number] SULFATE 325 (65 FE) MG ORAL TABLET DELAYED RELEASE (FERROUS SULFATE) 1 tab by mouth every day #30[Tablet] x 5 Route:ORAL Entered and Authorized by: Diana PICKENS Method used: Electronically to [facility] (retail) [address] [place] [address] Note to Pharmacy: Route: ORAL; RxID: [id number] TARTRATE 25 MG ORAL TABLET (METOPROLOL TARTRATE) 1 tab by mouth twice per day #60[Tablet] x 5 Route:ORAL Entered and Authorized by: Diana PICKENS Method used: Electronically to [facility] (retail) [address] [place] [address] Fax: Note to Pharmacy: Route: ORAL; RxID: [id number] CALCIUM 40 MG ORAL TABLET (ATORVASTATIN CALCIUM) 1 tab by mouth every night at bedtime #30[Tablet] x 5 Route:ORAL Entered and Authorized by: Diana PICKENS Method used: Electronically to [facility] (retail) [address] [place] [address] Note to Pharmacy: Route: ORAL; RxID: [id number] signed by Diana PICKENS on 08/26/2020 at 11:25 AM Name Value Range Interpretation Code Description Data Jennifer rce(s) Supporting Document(s) ID Date Data Source [id number] 07/25/2020 04:01:08 PM EDT [facility] PCName: [facility] Molina: 1980Provider: John Lopez: 07/22/2020 History of Present IllnessCHIEF COMPLAINTFollow-up. HISTORY OF PRESENT ILLNESSThe patient is a pleasant 40-year-old hknog-arhs-tcoekhau female who comes in today for a follow-up. The patient is a previous patient of Dr. Reid. I saw the patient in 03/2019. The patient has had surgery by Dr. Reid for right de Quervain's release and Dr. Ch performed a right endoscopic carpal tunnel release in 2015. She also had left wrist arthroscopy in 07/2016. At that point, she had had a nerve study in 2018 that was normal. She saw Rj in May 2020. At which point, she was having numbness and was sent for a nerve study.The patient states that the hand is still numb. She states that she has been wearing a brace that did not seem to help much. The patient states that she has tried injection, bracing, physical therapy, and nothing seems to make the hand any better. She has not had left carpal tunnel release in the past. The patient is unemployed. Results/Data OtherThe nerve study in 2019 performed on 07/05/2020 shows a normal nerve study. AssessmentSOS Assessment Dragon Form: ASSESSMENTThe patient is a 40 -year-old ufeoi-njrf-qqucqbkz female who has been seen multiple times for her upper extremities. She has had she has over 7 nerve studies I can see in the chart since 2015. The last 2 nerve studies, I reviewed, were normal. At this point, I am not sure exactly what is causing her numbness. She has seen her spine provider in 07/2019. She can follow up with the spine providers if there is any question, otherwise I do not have much more to offer the patient other than conservative management such as physical therapy. PlanPLANAt this point, the patient can follow up with spine if she would like, I am not sure if there is much they can offer her. I do not have much more to offer the patient at this time. I am not sure where her numbness is coming from. At this point, I would recommend conservative management or there is a possibility that she could see our pain management clinic in the future.At this time, we feel that Scott Carvajal is no longer in need of follow-up by us for this condition. She understands that there is no follow-up appointment being made to be seen for treatment of her numbness, but also understands that if her condition changes in the future, she should call to make a follow-up appointment. She also understands that she should feel free to be seen at [facility] for any additional orthopedic conditions that may arise in the future. Work / School NoteThe percentage of temporary impairment is 0%. The patient is not working at this time. Scott Carvajal is currently not working. Scribed by Silvestre Lange on 07/23/2020 at 12:31 PM for Shaq Lopez Signatures Electronically signed by : Baldo Lange MA; Jul 23 2020 12:34PM EST (Author) Electronically signed by : Shaq Lopez M.D.; Jul 25 2020 4:01PM EST (Author) Name Value Range Interpretation Code Description Data Jennifer rce(s) Supporting Document(s) ID Date Data Source [id number] 07/13/2020 01:46:03 PM EDT [facility] In-House Blood TestsDate/Time Colle cted: July 13, 2020 10:46 AMTest Result Reference Range Normal ValueComments: taken from left ac, tolerated well.Kenna Lew, July 13, 2020 1:46 PMAssessment & Plan Orders:[id number] Vst-Est Level I [CPT-72404] 31186 - Venipuncture [CPT-92117] Name Value Range Interpretation Code Description Data Jennifer rce(s) Supporting Document(s) ID Date Data Source [id number] 07/13/2020 10:50:00 AM EDT [facility] Name Value Range Interpretation Code Description Data Jennifer rce(s) Supporting Document(s) HCT 41.4 % 36.0-47.0 N [facility] HGB 13.2 g/dL 12.0-15.5 N [facility] MCH 31.9 G/DL pg 32.0-36.[address] [facility] cyndi [facility] MCHC 29.3 PG % 27.0-33.0 N [facility] PLATELETS 254 10 10*3/mm3 150-450 N [facility] RBC 4.51 10 10*6/mm3 4.00-5.40 N [facility] RDW 13.3 % 11.5-14.5 N [facility] WBC TOTAL 4.6 4.0-10.0 N [facility] ID Date Data Source [id number] 07/13/2020 10:50:00 AM EDT [facility] Name Value Range Interpretation Code Description Data Jennifer rce(s) Supporting Document(s) BG FASTING 103 mg/dL 70-100 H [facility] T4, FREE 0.89 ng/dL 0.76-1.46 N [facility] TSH 2.330 microintl units/mL 0.358-3.740 [facility] ID Date Data Source [id number] 06/21/2020 12:32:43 PM EDT [facility]: 1980Provider: Jovanna Vasquez: 06/17/2020 History of Present IllnessShe is here for an evaluation of her left hand and wrist. She complains of ulnar wrist pain and numbness in her hand and thumb index and middle finger. I she was initially seen 1 month ago after a fall and she was having some intermittent numbness. She states that the numbness has gotten worse and is now numbness especially in the morning and with repetitive activity. She is wearing a splint to bed. She has had a previous right carpal tunnel release and bilateral de Quervain's release. AssessmentSOS Assessment Dragon Form: Left hand numbness PlanWe'll go ahead and schedule her for a nerve conduction study, bilateral hands, right side for comparison. She may continue wearing her thumb splint at night, using heat and ice and topical medication. Work / School NoteThe percentage of temporary impairment is 0%. This document was dictated and electronically signed using [employer] software. A reasonable attempt at proof reading has been made to minimize errors. Please call with any questions. Signatures Electronically signed by : Marielena Vasquez NP; Jun 17 2020 4:28PM EST (Author) Electronically signed by : Shaq Lopez M.D.; Jun 21 2020 12:32PM EST Name Value Range Interpretation Code Description Data Jennifer rce(s) Supporting Document(s) ID Date Data Source [id number] 06/08/2020 10:51:00 PM EDT [facility] Name Value Range Interpretation Code Description Data Jennifer rce(s) Supporting Document(s) &PDF [facility] YMTGDv2dEfWVJgYx99/DWZauTVRic5RgMKnvTBh3XLwrDUUdH0PgzSbrHI0ZGuaLQwgXFuHYLAduSNEb yKE [file] [facility]+Tt086Jjc+38fn4lr7xVnyySwDNON/gXdXw/AHVJTOlsR6yVfBwmMggNksxiVhRw6hlHcE4/G2C0w [file] ICAgICAgICAgICAgICAgICAgICAgICAgICAgICAgIC AgICAgICAgICAgICAgICAgICAgICAgICAgICAgICAgICAgICAgICAgICAgICAgDQogICAgICAgICAgIC AgICAgICAgICAgICAgICAgICAgICAgICAgICAgICAgICAgICAgICAgICAgICAgICAgICAgICAgICAgIC AgICAgICAgICAgICAgICAgICAgICAgICAgICAgDQog ICAgICAgICAgICAgICAgICAgICAgICAgICAgICAgICAgICAgICAgICAgICAgICAgICAgICAgICAgICAg ICAgICAgICAgICAgICAgICAgICAgICAgICAgICAgICAgICAgICAgDQogICAgICAgICAgICAgICAgICAg ICAgICAgICAgICAgICAgICAgICAgICAgICAgICAgIC AgICAgICAgICAgICAgICAgICAgICAgICAgICAgICAgICAgICAgICAgICAgICAgICAgDQogICAgICAgIC AgICAgICAgICAgICAgICAgICAgICAgICAgICAgICAgICAgICAgICAgICAgICAgICAgICAgICAgICAgIC AgICAgICAgICAgICAgICAgICAgICAgICAgICAgICAg DQogICAgICAgICAgICAgICAgICAgICAgICAgICAgICAgICAgICAgICAgICAgICAgICAgICAgICAgICAg ICAgICAgICAgICAgICAgICAgICAgICAgICAgICAgICAgICAgICAgICAgDQogICAgICAgICAgICAgICAg ICAgICAgICAgICAgICAgICAgICAgICAgICAgICAgIC AgICAgICAgICAgICAgICAgICAgICAgICAgICAgICAgICAgICAgICAgICAgICAgICAgICAgDQogICAgIC AgICAgICAgICAgICAgICAgICAgICAgICAgICAgICAgICAgICAgICAgICAgICAgICAgICAgICAgICAgIC AgICAgICAgICAgICAgICAgICAgICAgICAgICAgICAg ICAgDQogICAgICAgICAgICAgICAgICAgICAgICAgICAgICAgICAgICAgICAgICAgICAgICAgICAgICAg ICAgICAgICAgICAgICAgICAgICAgICAgICAgICAgICAgICAgICAgICAgICAgDQogICAgICAgICAgICAg ICAgICAgICAgICAgICAgICAgICAgICAgICAgICAgIC AhQOYeQWGjFGCvYUXsHIZsHFAlSGQeZPMqDOOvHJIrDDIpMXKsSZTnQYXdRYWnBXUmXLSsXEIeWAm7V4 qlYXFkIDUtLJ9sDTp6Dt2+PSbFUfXbEWR8prOolX6MTP1pn0ByJAlrYBIkx1HoULj6LO3EXLGeKNkaYH 9GOKeexg8UVIMvFFMyqARHh5scBdGxJGL8LLMrCzkw VE0HMIVsX5yznnCdRPWaXRODYUqtVRXKNB7RBaLaN2GiqH78SGDWQp5+OOlpeaXlMnsHNtH0OZOin2Ev OKg8SS3CKMRmEVwhKD7LGHAifZ3gMOciKD5GEtBtRHJzPAKTHbMzB81qvLZkPBf2H7AoQyEdEISeZfxy ZXMgPDwvTmFtZXMgWyBdDQogID4+ID4+AGhmYR9ZMH wlsqGsEIXbHw7DATAvSKQ7EEPdgBIcIlXlMXDEIGzyQW1WuVErYTV3oR8uUWywUTWgUWIhX3sXDwDrqR gfVZ58hPxwzpQtlDGdRGq+In6GTN5wr1EdGCt7eaOhNKuzMHK9LIexQCNmHXAwAPKcUZP1BLI4TDVJXa ShGTPhICKhIRdhRBToDCKhdr0BLUUiHVTuEvVjHzJx ETSoUZRbYUiuYYRzXAK6MHx2TJMgGNKhSZ8HMtBpQREqEMSoCWWxNMInYWUiyg1HFMCuRAGfSwkhKBAr FHPkQFBiILftASQrGZQhOPG7NSXaICAsYI9MSdZwZFOeDGP2ZcijSKJqAOFdez6DXSHqEWRlTnf7YrBp BRVrLOEdZWqiDYPkRUX7DQZzUVNrUZOeJL1TMpNcXR AePBNaKVpfQNLaPGEaqy5WFCHmHDRpYYG6VWLkFJRdULLsPVmyFKPmDWW0YdH3DJRvILZrKY7YQfHkMX MbBJQ8KnpzIXFcPDMocr0EHIDgNWHyLkLiOrTzFOHsHPCvNHdxXNXvSGXtJRegSPToCTTtEV2SEzMpGY SpBOH0SFFiMGKzGSQhqx0BWXYpJHAiMnOzXpVkOIMj TBPpCZjrJFAmOYOcYdElCEWlZCNgVD4UKcPrYXHcNOBjFPqtZFMkGGQdwe2WOWVoQKClRgJ2NZIbIKUu UHXhHSsjVLBkGLWwLVW8WAFtLLMnQL5ZAmHqMNZkGHP9WYqmDCHjZSKefi8PVDMqPOJrTZP2EsZxDGCv QCNeGTcrOFFfJITbYEDsXINbQJApCF6IAlGvMFZnVw B8QWabCZSzCTFhvm8DPGMcYIJmRMQ1IiHePKOlYIYoPIm7imMriYSlQKi4FT7KH6TvpcNxFweZUg6Nb1 29IRS5RLNfTd4RS9llKz3bTMCnBUAPLk7JTQp2VuT9TgP6XSF6EtngQSH3KaHcLik9WLY1ZcEgDSXkCD Y+WZwiXNmnGKAsRPcuHIT7BFKmMeYrKHV0PBueEkEk NrEcXg9fHGSKWy1+PYrexKErsTpgCEDIGrL0QEy3JGgqKHSGTp0C ID Date Data Source [id number] 05/25/2020 11:44:21 PM EDT [facility] Name Value Range Interpretation Code Description Data Jennifer rce(s) Supporting Document(s) &PDF [facility] ECDXLv6nZbYDAfMz66/VUTmqKUXrx5YvLXclGKg9HVorMLOgQ4MtxRvfDL0PIqzTFppRBzZESAayIYVl oRX [file] AgICAgICAgICAgICAgICAgICAgICAgICAgICAgICAgICAgICAgICAgICAgICAgICANCiAgICAgICAgIC AgICAgICAgICAgICAgICAgICAgICAgICAgICAgICAg ICAgICAgICAgICAgICAgICAgICAgICAgICAgICAgICAgICAgICAgICAgICAgICAgICAgICAgICAgICAN CiAgICAgICAgICAgICAgICAgICAgICAgICAgICAgICAgICAgICAgICAgICAgICAgICAgICAgICAgICAg ICAgICAgICAgICAgICAgICAgICAgICAgICAgICAgIC AgICAgICAgICANCiAgICAgICAgICAgICAgICAgICAgICAgICAgICAgICAgICAgICAgICAgICAgICAgIC AgICAgICAgICAgICAgICAgICAgICAgICAgICAgICAgICAgICAgICAgICAgICAgICAgICANCiAgICAgIC AgICAgICAgICAgICAgICAgICAgICAgICAgICAgICAg ICAgICAgICAgICAgICAgICAgICAgICAgICAgICAgICAgICAgICAgICAgICAgICAgICAgICAgICAgICAg ICANCiAgICAgICAgICAgICAgICAgICAgICAgICAgICAgICAgICAgICAgICAgICAgICAgICAgICAgICAg ICAgICAgICAgICAgICAgICAgICAgICAgICAgICAgIC AgICAgICAgICAgICANCiAgICAgICAgICAgICAgICAgICAgICAgICAgICAgICAgICAgICAgICAgICAgIC AgICAgICAgICAgICAgICAgICAgICAgICAgICAgICAgICAgICAgICAgICAgICAgICAgICAgICANCiAgIC AgICAgICAgICAgICAgICAgICAgICAgICAgICAgICAg ICAgICAgICAgICAgICAgICAgICAgICAgICAgICAgICAgICAgICAgICAgICAgICAgICAgICAgICAgICAg ICAgICANCiAgICAgICAgICAgICAgICAgICAgICAgICAgICAgICAgICAgICAgICAgICAgICAgICAgICAg ICAgICAgICAgICAgICAgICAgICAgICAgICAgICAgIC AgICAgICAgICAgICAgICANCiAgICAgICAgICAgICAgICAgICAgICAgICAgICAgICAgICAgICAgICAgIC AgICAgICAgICAgICAgICAgICAgICAgICAgICAgICAgICAgICAgICAgICAgICAgICAgICAgICAgICANCj w/qKGjN3glvCHfazD8T4kpEf2GSi6MFD5re1MnQHPi LHehxePhBrtESiWiICBxLczFYcj7WMyuLR8JeNEyJ3DzK8FwPIabCS8ONKSuQMVjsMIlTEUcPMUyLaZ0 XKXwRPtkMJ6JtTOoVEiyWQIaHABhAtLpSOMrGZ5YVXUmL637nsTgBo8LAw6VOoPmFP6qiv5QWsJmOFCq RzfAExu5LPkyNB6VaCWiA7MkqWNew3yTHwYcX3SDBQ GcNFSoRh7RYPMkFvZyOCGqKLqfQL3fFTLxWVQLzRdizvG3BX7EWY5igeFjLW9GWjFhMa2sPm1WVhGgW0 ZeA0HcADOlCWJAJFsyML7PQSUgDPS8UHYfJrOhHIGXBmHhR55lZC3HT5Eys41qNeI9MGMoZpErWLhuIH 23xBmriiDmyKRilHeiNJ3SIq6+DQplbmRvYmoNCnhy LGUPBjMvKlMTBrZpJNXjEJBpRDMeQbJ4BaBnCo3THWOmMNPzJVXoTyHnNPBeCRJlBVnjDBXvFEh3MEt6 ERJwTHAyHP3KMwOwIQKlWMi3RELeKMTwLLZmol7VJSXvIBMtNNI9QKFnDYGnSMBaWLntDCXtUSQpDqR1 EKAtNAZnWA3AZaSgGLBgTUG3WcVtWQCvHRVbbv3RTI VjBPYfNHO2FjTwIOFtQWOqSItkXIHkRIA3NEYzCNPmWQXxAB3WFmPxUDHdKEW5HSijJMFaSCSnrp5QLG FzSWHcIvWkAVTkHINkXJUaAEviIKRlGYL0OZl3DKMhXVRePB0VHePzSAMrXVrfYPDaOGSyHHGaps6SAY GcNAOoJCP2JjUwRWHnKFBhLEdvUBFfBJV1TPV3EOKh NMPpXO1GCzYdKNSfQOS7BAWrHMRfWOTrni5WSJIcFLPaOkmuZDDrVZWkXUMoINadPYNiJKJnZOPgYJLk XFVwJE4RGqTxIVNtAJVzEcGlAJFwFQRnge4JEVSfXOEtZMUdCoBdTWQpHFGuTEqyPOLjRYF4AkW6KLWw SSFiAZ3XWpOdKMEfVBE8FYDjCPJcRAGreu6PDKEpRA XjFUFqQeGzPYQmDEGoFFdcHRRkLAEtYsExPHKvPNGnNB1OPhJoYQQpKqVkDJsqRBOoAISryt5AOEJgLC DfQHM5MhJnISVuWQGjPOjhWONoRLO2MtWkINJgDLJsJF3FHcXzZVVcAWQ4VJCzPRVfWZWpel0ZTBUaJT M2PwN5KoJqMLHaOOOcPEhbVVRmCNo1BlC1BULyCIYn EP1XZfYoOZJdLGRzQHDxGVCdOMJmbo9MMAWtTAP6YgY2LrTpRVNvBFEdWRflAKYbOHa0WQN7BUGgWJKb MH9DCdXhLNEsVBv7YRyyJAQnXANwui3HeIGvoQrtxr3AVLuGOe3FlDhyNAD7OCjvUy9muFKbLqXnFOWZ Ne3SwlSqVBQcUQZKAZyiZNCvEAR8CgzpVgSrZoS2FR KuNJV7RVG2OrUaXrQyFiKtWpC0XwU9UHi1Q6UzMPOtAjVwLbK0KXR0EAwmUbD6ItNxMKF4RWe+IF0gDQ o+Me9Xe0NxcqX0iaNlXRv7HWl8Lw6OJTMCY2DCHl== ID Date Data Source [id number] 05/25/2020 10:53:35 AM EDT [facility] PCName: Scott Molina: 1980Provider: Jovanna Vasquez: 05/20/2020 History of Present IllnessShe is here for an initial evaluation of her left hand and wrist. She complains of numbness on the dorsal hand in the thumb and index finger. This is almost all the time. The symptoms have been present for 1 month. At that time she tripped and fell downstairs, injuring her left foot and landing on her outstretched hand. She did notice pain and almost right away. The pain eventually resolved but she continues to have numbness. He has not had any previous treatment. Results/DataXRays were ordered, obtained and interpreted today in the office. Indication: pain/dysfunction. Side: Left Site: wrist Views: 3 views AP/Lateral/Oblique Findings: No fractures, dislocations, or degenerative changes. AssessmentSOS Assessment Dragon Form: Left hand numbness Plan X- Ray I Hand Wrist 3 Views (XRays were ordered, obtained and interpreted today in theoffice. Indication: pain/dysfunction.); Status:Complete; Done: 20May2020 Perform:SOS19 (Hand); Due:[id number]; Last Updated By:Geraldine Isbell; 05/20/2020 3:18:35 PM;Ordered; For:Pain in wrist; Ordered By:Marielena Vasquez;Laterality: : Left DME (SOS) Supply(s) Diagnostic Diagnostic Status: Complete Done: 20May2020 Ordered;For: Pain in wrist; Ordered By: Marielena Vasquez Performed: Due: [id number]; Last Updated By: Yun Hidalgo; 05/20/2020 3:31:42 PMDME Supply (s) : left wrist brace Plan, Assessment and Recommendation(s) Schedule appointment: in 4-6 weeks. She does seem to have some acute carpal tunnel symptoms after her fall. We will go ahead and treat this with a brace at nighttime and with activity, heating and icing and topical anti-inflammatory medication. We will see her back for recheck in one month. If she continues to have numbness or worsens, we will schedule her for a nerve conduction study. Work / School NoteThe percentage of temporary impairment is 0%. This document was dictated and electronically signed using [employer] software. A reasonable attempt at proof reading has been made to minimize errors. Please call with any questions. Signatures Electronically signed by : Marielena Vasquez NP; May 20 2020 3:34PM EST (Author) Electronically signed by : Shaq Lopez M.D.; May 25 2020 10:53AM EST Name Value Range Interpretation Code Description Data Jennifer rce(s) Supporting Document(s) ID Date Data Source [id number] 03/16/2020 09:31:26 AM EDT [facility] Measurements & CalculationsHeight: 62 inches (5 ft. 2 in.) 157.48 cm Initial Intake Information from: patientSmoking, Tobacco, Vaping or Smoke Exposure StatusSmoke Status: never smokerTobacco Use: NoDo you vape? NoPassive Smoke Exposure: NoMenstrual HistoryAny possibility of ? NoComments: total hysterectomy Healthcare HistorySince your last office visit...Have you been admitted to the hospital? NoHave you been to an emergency room (ER) or urgent care clinic? Yes - [facility] Emergency room (ER) or urgent care date reported today: 03/04/2020Have you seen another healthcare provider? Yes - zheng, entHave you seen a dentist? Yes - aquaIntake performed by: Biju Charlton MA, March 16, 2020 9:35 AMRate Your HealthIn general, would you say your health is? FairPain AssessmentAre you currently having any pain which... You would like your provider to address? Yes Affects your activity level? YesDepression Screening - PHQ-2Over the last two weeks, have you... Had little interest or pleasure in doing things? Not at all Been feeling down, depressed, or hopeless? Not at all PHQ-2 Score: 0Food InsecurityWithin the past year...Did you worry whether your food would run out before you got money to buy more? NoWas there a time when the food you bought didn't last and you didn't have money to get more? NoInfectious Disease / Travel ScreeningRecent travel for you or any close contacts? NoHave you had any close contact with anyone diagnosed with or under investigation for COVID-19 (coronavirus)? NoHave you had any of the following symptoms recently? Fever? NoRespiratory symptoms: cough, cold, congestion, shortness of breath, difficulty breathing? NoPain AssessmentPain ScaleNumeric Rating Scale: 7 / 10Location: lower backDuration: chronicFrequency: DailyCharacter/Quality: aching and burningIs the pain radiating? NoScreening, Brief Intervention, & Referral to Treatment (SBIRT)Pre-Screening Questions How many times have you have 4 or more drinks in a day? 0How many times have you used an illegal drug or used a prescription medication for a non-medical reason? 0Performed by: Biju Charlton MA, March 16, 2020 9:36 AMPatient History Medical History:High CholesterolAsthma AllergiesGERDdepression/anxietySurgical History: sections 2002 and 2007tonsillectomy 2011carpal tunnel right handtendon repair left handTAHbil ctr gian wrist surgery cyst removed from headleft foot bone spur removed Family History:Family History of ArthritisFamily History of AsthmaFH DiabetesFH HypertensionFH SeizuresFH Other CancerSocial/Personal History:Patient and fiance' are homelessNo petsFiance' smokes Chief Complaintlab results phone History of Present Illness (HPI)This visit was conducted via telephone. Diana PICKENS, has received verbal consent from the patient/guardian to conduct this visit via telehealth. The patient has been made aware that they have the right to refuse telehealth; of my location and the security of the telehealth software; any other parties present in the session; and that they have a right to select another provider if chosen for a face to face visit.39 yr old female phone call visit today follow up and review of lab results. Pt states she has chronic back pain. Pt states she is taking medications well with no side effects.Pt states still concerned with ongoing migraine. Pt states ongoing for years but starting to get worst. Pt statesOTCs and Imitrex little effect. Pt states seen [facility] health [facility]. telephone visit 15 minutesHPI performed by: Diana PICKENS, March 16, 2020 3:25 PMTransitions of Care InboundProblem Rev iewProblem List was reviewed and/or updated during this visit.Medication Reconciliation & ReviewMedication List was reviewed and/or updated during this visit, including review of any rmof-lzu-yrmlvlr medications, herbal therapies, and/or supplements.Allergy ReviewAllergy List was reviewed and/or updated during this visit.Provider Calculated and Reviewed all Clinical Protocols for patient today. Review of Systems General: Complains of headache. Denies loss of appetite, chills, dizziness, fatigue, fever, continued fever, feeling ill, sweats, night sweats, sleep disturbances, weight loss. Eyes: Denies blurring of vision, double vision, irritation, discharge, vision loss, eye pain, eye swelling, droopy eyelid, sensitivity to light, redness, itching. Ears/Nose/Throat: Denies earache, ear discharge, ringing in ears, decreased hearing, nasal congestion, nosebleeds, runny nose, sore throat, hoarseness, difficulty swallowing, dry mouth, tooth pain, bleeding gums, swollen glands. Cardiovascular: Denies chest pain, palpitations, feeling faint, trouble breathing w/exertion, SOB upon lying down, SOB at night, peripheral edema, elevated blood pressure, decreased heart rate. Respiratory: Denies cough, difficulty breathing, shortness of breath, excessive sputum, coughing up blood, wheezing, chest pain. Gastrointestinal: Denies nausea, vomiting, bleeding, burning, itching, irritation, cramps, diarrhea, constipation. Genitourinary: Denies urinary incontinence, pain with urination, burning with urination, urinary frequency, urinary hesitancy, urinary urgency, urinary urgency at night, incomplete emptying, blood in urine. Musculoskeletal: Complains of back pain. Denies joint pain, leg pain, other pain-see comments, joint swelling, body aches, muscle aches, muscle cramps, muscle weakness, stiffness, recent injury. Skin: Denies rash, hives, redness, itching, dryness. Neurologic: Denies muscle impairment, weakness, numbness/tingling, seizures, slurred speech, feeling faint, tremors, vertigo, paralysis on one side, paralysis on both sides. Psychiatric: Denies depression, anxiety, memory loss, mental disturbance, suicidal ideation, homicidal ideation, hallucinations, paranoia, feeling stresse d, hearing voices. Endocrine: Denies cold intolerance, heat intolerance, excessive thirst, excessive hunger, excessive urination, weight loss, weight gain. Physical ExamGeneral Appearance: well nourished, well hydrated, no acute distressEyes, External: conjunctivae and lids normal, EOMIRespiratory, Auscultation: clear to auscultation bilaterally; no rales, rhonchi, or wheezesRespiratory, Effort: no intercostal retractions or use of accessory musclesCardiovascular, Auscultation: S1, S2 audible; no murmur, rub, or gallop; RRRPeripheral Circulation: no clubbing, cyanosis, edema, or varicositiesAbdomen: soft, non-tender, no masses, bowel sounds normalGait & Station: normalSkin, Inspection: no rashes, lesions, or ulcerationsOrientation: oriented to time, place, and personMood & Affect: no depression, anxiety, or agitationJudgment & Insight: intactCare Management Plan Transitions of CareInboundRate Your HealthIn general, would you say your health is? FairAssessment & Plan Problems:Added: Migraine, unspecified, not intractable, without status migrainosus (ICD10- G43.909) Assessment: Instructions: We have made a referral for you today. We will contact you to set this up.Person consulting for explanation of examination or test findings (ICD-V65.8) (TPK46-K92.2) Assessment: Telephone visit 15 minutes. Instructions: We have reviewed your lab results with you today. HGA1c 5.9. This indicates prediabetes. Please continue lifestyle changes to include healthy diet and physical activities. Please continue to try to limit sugars and carbohydrates in your diet. CBC unremarkable.Generalized headache (ICD-784.0) (STJ11-H47) Assessment: Pt failed OTCs. Pt verbalized little improvement with imitrex. Referral made to Neurologist for further eval Instructions: Referral made to neurology for you today.Migraine, unspecified, not intractable, without status migrainosus (KGE55-M05.909) Assessment: Pt failed OTCs. Pt verbalized little improvement with imitrex. Referral made to Ne urologist for further evalAssessed:Prediabetes (EFA63-Q57.03) Assessment: Instructions: Hga1c 5.9. trending up. Please continue lifestyle changes to include healthy diet and physical activities. Please continue to limit sugars and carbohydrates in your diet.Anxiety depression (ICD-300.4) (XWY34-H32.8) Assessment: Instructions: Please continue medication as prescribed. Please continue to follow with [facility].Patient Instructions/Care Plan: Migraine- unspecified- not intractable- without status migrainosus: We have made a referral for you today. We will contact you to set this up.Person consulting for explanation of examination or test findings: We have reviewed your lab results with you today. HGA1c 5.9. This indicates prediabetes. Please continue lifestyle changes to include healthy diet and physical activities. Please continue to try to limit sugars and carbohydrates in your diet. CBC unremarkable.Prediabetes: Hga1c 5.9. trending up. Please continue lifestyle changes to include healthy diet and physical activities. Please continue to limit sugars and carbohydrates in your diet.Generalized headache: Referral made to neurology for you today.Anxiety depression: Please continue medication as prescribed. Please continue to follow with your mental health team at [facility]. Plan developed in collaboration with patient and/or familyMedications:VITAMIN D3 78761 UNIT ORAL CAPSULETYLENOL EXTRA STRENGTH 500 MG ORAL TABLETNYSTATIN 420850 UNIT/GM EXTERNAL OINTMENTIMITREX 25 MG ORAL TABLETTRAZODONE HCL 100 MG ORAL TABLETATORVASTATIN CALCIUM 40 MG ORAL TABLETMETOPROLOL TARTRATE 25 MG ORAL TABLETBREO ELLIPTA 100-25 MCG/INH INHALATION AEROSOL POWDER BREATH ACTIVATEDFLUOXETINE HCL 40 MG ORAL CAPSULECLARITIN 10 MG ORAL TABLETOMEPRAZOLE 40 MG ORAL CAPSULE DELAYED RELEASEALBUTEROL SULFATE HFA 108 (90 BASE) MCG/ACT INHALATION AEROSOL SOLUTIONFERROUS SULFATE 325 (65 FE) MG ORAL TABLET DELAYED RELEASEMedication Changes:Refilled:CLARITIN 10 MG ORAL TABLET-1 pill po daily Qty: 30[Tablet] Refills: 3 Method: ElectronicMETOPROLOL TARTRATE 25 MG ORAL TABLET-1 tab by mouth twice per day Qty: 60[Tablet] Refills: 2 Method: ElectronicATORVASTATIN CALCIUM 40 MG ORAL TABLET-1 tab by mouth every night at bedtime Qty: 30[Tablet] Refills: 2 Method: ElectronicTYLENOL EXTRA STRENGTH 500 MG ORAL TABLET-take one tablet by mouth three times dily as needed for pain. Qty: 60[Tablet] Refills: 1 Method: ElectronicAllergies:NSAIDS (Critical)ASPIRIN (Moderate)IBUPROFEN (Moderate)Orders:Neurology Consult [CPT- 03580] LIPID PANEL [CPT-32383] COMP METABOLIC PANEL [CPT-00775] TSH [CPT-37121] T-4 free [CPT-22389] IRON [CPT-75188] VITAMIN B-12 [CPT-15571] Folate (Folic Acid Serum) [CPT-17326] CBC W/DIFF [CPT-26574] Telephone E&M 11-20 min Medical Discussion [CPT-28711] Follow-Up Return to clinic: 4-6 weeks for follow up Medications:TYLENOL EXTRA STRENGTH 500 MG ORAL TABLET (ACETAMINOPHEN) take one tablet by mouth three times dily as needed for pain. #60[Tablet] x 1 Route:ORAL Entered and Authorized by: Diana PICKENS Method used: Electronically to [facility] (retail) [address] [place] [address] Note to Pharmacy: Route: ORAL; RxID: [id number] CALCIUM 40 MG ORAL TABLET (ATORVASTATIN CALCIUM) 1 tab by mouth every night at bedtime #30[Tablet] x 2 Route:ORAL Entered and Authorized by: Diana PICKENS Method used: Electronically to [facility] (retail) [address] [place] [address] Fax: Note to Pharmacy: Route: ORAL; RxID: [id number] TARTRATE 25 MG ORAL TABLET (METOPROLOL TARTRATE) 1 tab by mouth twice per day #60[Tablet] x 2 Route:ORAL Entered and Authorized by: Diana PICKENS Method used: Electronically to [facility] (retail) [address] [place] [address] Ph: Note to Pharmacy: Route: ORAL; RxID: [id number] 10 MG ORAL TABLET (LORATADINE) 1 pill po daily #30[Tablet] x 3 Route:ORAL Entered and Authorized by: Diana PICKENS Method used: Electronically to [facility] (retail) [address] [place] [address] Ph: Note to Pharmacy: Route: ORAL; RxID: [id number] signed by Diana PICKENS on 03/18/2020 at 2:12 PM Name Value Range Interpretation Code Description Data Jennifer rce(s) Supporting Document(s) ID Date Data Source [id number] 02/15/2020 04:06:12 PM EDT [facility] In-House Blood TestsDate/Time Colle cted: february 15, 2020 4:06 PMTest Result Reference Range Normal ValueComments: blood draw done in [facility] done in the [facility] tolerated well Rufino Bates MA, february 15, 2020 4:06 PMAssessment & Plan Orders:40292-Hgk Vst-Est Level I [CPT-10253] 59353 - Venipuncture [CPT-14532] Name Value Range Interpretation Code Description Data Jennifer rce(s) Supporting Document(s) ID Date Data Source [id number] 02/15/2020 09:00:00 AM EDT [facility] Name Value Range Interpretation Code Description Data Jennifer rce(s) Supporting Document(s) HCT 44.2 % 36.0-47.0 [facility] HGB 14.4 g/dL 12.0-15.5 [facility] MCH 32.6 G/DL pg 32.0-36.5 [facility] MCHC 29.8 PG % 27.0-33.0 [facility] PLATELETS 287 10 10*3/mm3 150-450 N [facility] RBC 4.83 10 10*6/mm3 4.00-5.40 [facility] RDW 12.9 % 11.5-14.5 [facility] WBC TOTAL 7.4 4.0-10.0 N [facility] ID Date Data Source [id number] 02/15/2020 09:00:00 AM EDT [facility] Name Value Range Interpretation Code Description Data Jennifer rce(s) Supporting Document(s) HGBA1C 5.9 % N [facility] ID Date Data Source [id number] 02/09/2020 11:54:54 AM EDT [facility]Name: Scott CruzB: 1980Provider: Jovanna Vasquez: 01/29/2020 History of Present IllnessShe is here for follow-up of her left middle finger. She was seen recently for a hyperextension injury. She has been working on range of motion, modifying her activities, using heat and ice and topical medication. She is doing well. She resolution of pain and good motion and strength. AssessmentSOS Assessment Dragon Form: Left middle finger PIP joint pain PlanPlan, Assessment and Recommendation(s) Follow up as needed, if not improving, or getting worse. She is doing well. Her pain has resolved. Her motion has improved. She may return to normal activities as tolerated. Work / School NoteThe percentage of temporary impairment is 0%. This document was dictated and electronically signed using [employer] software. A reasonable attempt at proof reading has been made to minimize errors. Please call with any questions. Signatures Ella ctronically signed by : Marielena aVsquez NP; Jan 29 2020 2:06PM EST (Author) Electronically signed by : Shaq Lopez M.D.; Jan 31 2020 10:13PM EST Electronically signed by : Marielena Vasquez NP; Feb 09 2020 11:53AM EST (Author) Electronically signed by : Shaq Lopez M.D.; Feb 09 2020 11:54AM EST Name Value Range Interpretation Code Description Data Jennifer rce(s) Supporting Document(s) ID Date Data Source [id number] 12/30/2019 10:40:27 PM EST [facility] Name Value Range Interpretation Code Description Data Jennifer rce(s) Supporting Document(s) &PDF [facility] WYLHNz6eFrBWLbIa74/VHEqjDCJfu1ZiJYajNIp2KVylGGWrS2OsnGcmYL0YKwkHXxmMAwTIZTxxDTWo oRX [file] ICAgICAgICAgICAgICAgICAgICAgICAgICAgICAgICAgICAgICAgICAgICAgICAgICAgICAgICAgICAg IDXtVFTxNZAdBRGvYFZvOFCgSUNnJRLkVZ4NZFSpKXJbNGFuSGGvACOeRNUxCPTwEWZwMMUsASZoSIIc ICAgICAgICAgICAgICAgICAgICAgICAgICAgICAgIC OxUMUwYWEsYMSmUNGoJENvSRQgCLYtWNHkEFRtPIDgELUqXH7DRCEqZNSwWQSwARWpXWGwCIHqPVPsKP AgICAgICAgICAgICAgICAgICAgICAgICAgICAgICAgICAgICAgICAgICAgICAgICAgICAgICAgICAgIC OgDBZiULLyHKNyLRLzJGZuVA0RLCLlOUHrUHGlBTNd ICAgICAgICAgICAgICAgICAgICAgICAgICAgICAgICAgICAgICAgICAgICAgICAgICAgICAgICAgICAg IWXpPWGlMVXaUUQlNIRmQTLoGTWdPREfNSOmWU6TEFEeIELvQOMyKTCoZBVtPGGfRKRdRDAjCJIiCWCr ICAgICAgICAgICAgICAgICAgICAgICAgICAgICAgIC TeVREaKFWmWZGnBKXhAZPlXFGlOOUtEVTsQMSaWTUsBJUhWOUeWT4RQTTcKBNhBTRvCCEtYUOaVEFfSH AgICAgICAgICAgICAgICAgICAgICAgICAgICAgICAgICAgICAgICAgICAgICAgICAgICAgICAgICAgIC AwHLNlQOYmBEOgUASeAOOqUBZfDH7NXMEuEVJnWJKr ICAgICAgICAgICAgICAgICAgICAgICAgICAgICAgICAgICAgICAgICAgICAgICAgICAgICAgICAgICAg DUYhDWNrKBTuKLGkNHSfPQFjIICbWJTuTSSzIUUxQG4EMKVbPECwSXGbEQBdZGXrDAPiJTOnUTGrUPZa ICAgICAgICAgICAgICAgICAgICAgICAgICAgICAgIC ZpCKHaEMReDIGiILYcBWEkSRNlJEUjNMQvQGYpWWRdQFEjFDQsTIPiPA8QWTWmRZXpXWMqNBVkBYWlFW AgICAgICAgICAgICAgICAgICAgICAgICAgICAgICAgICAgICAgICAgICAgICAgICAgICAgICAgICAgIC HqTPLsQGCwCCFtGUNtFSKbOVIbPCOdPE8ATDUpVMPn ICAgICAgICAgICAgICAgICAgICAgICAgICAgICAgICAgICAgICAgICAgICAgICAgICAgICAgICAgICAg CMMbAWUjHTDbPUZeKXDvTNExMFFqOWWzNJYbDCGoUZYaPT3OIF59rIMqa4I7NXLgPF0pboa/Oq8DZTor weIohWTfGQ3XQmTkGM9ymw5FXgOqVQ3nrz9YFBxESh GcF1P8bIGrXKEoDCELXqLcK54nSHoiTi76JRseZNJyWaJsVMe7Wh0WCfYtX1rpIBNrXdC7TPFgEoVqNY cbWB5Sj5PzyYGhRGl+Js2QMZ6in4XyERysCETsQU9ale7PJQuZAyWzY5D4mDWlU0E5XForDz4JOCEtZA RaSiRrQROAVSfrTC2HTG7gyxZ0EX2NoWExTZVmOBTz gLErSJg0E19waEDjQBhyEC8GDPX+Saman+Wv5EJRLtXDDgZHVtFpZpCKIZHfDlA69acMQoFYLyTARfDPHh Fd5PLFSiC3ZnuaEuhWebneXlVXVpZKATXD0YWRdtfpDjwYFyhAigOX40tDwzJO0VZo9ICjDcHP7phq7T yAExYn2WXUSkDJ2KDPQbRYVpMSAsBLU9YNAzXeMkUM dkLLJbUNDaWUX7WPLeSYQiWV6ENoLkCINlUjAmXOsjDMSgCOZmxb6BBWOdXMZxOgw6SqKlYAQkFZJuSE hdFTGnSRDoTHsrBHYpBSFhPV2HPbYrXHKlZWU6ZDxeEEHfMDApfj9PBVRgWBTcEdAcNIYnKJVzRARjLZ zrXZYgXOOiSRt0PRUdJYXdDM5YBnCwOMUgELX0XPFk XHAeMIYlmn6TFBWkELGrVtk4XGOkCVEbEWErELoiLGCfMVQ4HNP0IHZiMUUdIP0XMbFkERIrMGXvBpIe VUBuCIDzfh3ESVEwWAAoLTAwOcNdNDKtURQcJBfoGUEdBGPdHQL8UWDmFPZnMC7XVpBvIPRwYZP1PjPn JTHuWDHnxt6CDLDzWMTcZKL5GQLtKWOsPBQlKYrqJW VvONOcMNT8GQVhUAXxCH1ETqQfCHDvIDQbAxUsPGKyMCUoxr9CJCAmNMSbYvQfYgQoPMGeMRObXCcwIN BwAIWaGrDuDEXaZIVzIV0KJdJjGLNgZKLiAvJvCVObWTAilf6IKZYzHQUyBVY7YMWmDDWgWJOvPFkrLA SzOYOpWGk6FEAcSURoUG7YUxNvQKYuGqZ0MnLcBEAc VZSxvl8AVKJeFDVmEgq3RANsLGEhNHOfGMs7wgEgvZMhHAr2QN7HR2HtdgImHwGQTi9Gx320VWF8VVUd Ii8BD5aeOk8cKKVsEYKPGd7ZFZn5I3Y9SrS1ZtKrTTidIQT4Z6RkHDLiGEL6CfwhLSdmBeH+IDxjZTgy QdvgQAK5CVUpVbbbFWSfILUmZcfpWpSoIHMoJD0a XSANCj4+RTbafFDasJfwSMTQMbXqJUD1JZauYHGQYl0J ID Date Data Source [id number] 12/02/2019 02:01:13 PM [facility] Measurements & CalculationsHeight: 62 inches (5 ft. 2 in.) 157.48 cm Weight: 220 pounds 100 kg Body Mass Index (BMI): 40.38BMI Interpretation: Morbidly ObeseBody Surface Area (BSA): 1.99Weight Management Education Done (Nutrition/Physical Activity)Vital SignsTemperature: 98.7FPulse Rate: 74 beats/minuteRespiratory Rate: 17 respirations/minuteBlood Pressure: 106/75 O2 Saturation: 96% Vital Signs performed by: Ángela Bravo MA, December 02, 2019 2:12 PMInitial Intake Information from: patientRoom #: 9Infectious Disease- Travel Have you or your sexual partner travelled outside of the country recently? NoSmoking, Tobacco or Smoke Exposure StatusSmoke Status: never smokerTobacco Use: NoPassive Smoke Exposure: NoMenstrual HistoryComments: total hysterectomy Healthcare HistorySince your last office visit...Have you been to an emergency room (ER) or urgent care clinic? Yes - strained fingerHave you [facility] another [facility] Yes - majak, entHave you seen a dentist? NoIntake performed by: Ángela Bravo MA, December 02, 2019 2:05 PMRate Your HealthIn general, would you say your health is? Very GoodPain AssessmentAre you currently having any pain which... You would like your provider to address? No Affects your activity level? NoDepression Screening - PHQ-2Over the last two weeks, have you... Had little interest or pleasure in doing things? Not at all Been feeling down, depressed, or hopeless? Nearly every day PHQ-2 Score: 3Anxiety Screening - MIESHA-2Over the last two weeks, have you been... Feeling nervous, anxious, or on edge? More than half the days Unable to stop or control worrying? More than half the days MIESHA-2 Score: 4PHQ-9 1. Over the last 2 weeks, patient reports the following frequency of symptoms: a. Little interest or pleasure in doing things -Not at all b. Feeling down, depressed, or hopeless -Nearly every day c. Trouble falling asleep, staying asleep, or sleeping too much -Nearly every day d. Feeling tired or having little energy -Nearly every day e. Poor appetite or overeating -Nearly every day f. Feeling bad about yourself, feeling that you are a failure, or feeling that you have let yourself or your family down -Nearly every day g. Trouble concentrating on things such as reading the newspaper or watching television -Nearly every day h. Moving or speaking so slowly that other people could have noticed. Or being so fidgety or restless that you have been moving around a lot more than usual -Nearly every day i. Thinking that you would be better off or that you want to hurt yourself in some way -Not at all2. If you checked off any problems, how difficult have these problems made it for you to do your work, take care of things at home, or get along with other people? -Not Difficult at AllToday's PHQ-9 Results Score: 21 Severity: Severe Diagnosis Recommendation: Major Depression Functional Impairment: Not Difficult at AllDepression Screening Follow-Up ActionToday's Follow-Up Action Depression follow-up done.Generalized Anxiety Disorder 7- Item Screening (MIESHA-7)Answer Guide:0 = Not at all1 = Several days2 = Over half the days3 = Nearly every dayOver the last 2 weeks, how often have you been bothered by the following problems?Feeling nervous, anxious, or on edge: 2Not being able to stop or control worryinWorrying too much about different things: 2Trouble relaxinBeing so restless that it's hard to sit still: 3Becoming easily annoyed or irritable: 3Feeling afraid as if something awful might happen: 2Answer Guide:0 = Not difficult at all1 = Somewhat difficult2 = Very difficult3 = Extremely difficultHow difficult have these made it for you to do your work, take care of things at home, or get along with other people? 0GAD- 7 Screening Results MIESHA-2 Score: 4GAD-7 Score: 16Functional Impairment: Not difficult at allRecommendation: Severe anxietyScreening, Brief Intervention, & Referral to Treatment (SBIRT)Pre-Screening Questions How many times have you have 4 or more drinks in a day? 0How many times have you used an illegal drug or used a prescription medication for a non-medical reason? 0Performed by: Ángela Bravo MA, December 02, 2019 2:05 PMPatient History Medical History:High CholesterolAsthma AllergiesGERDdepression/anxietySurgical History: sections 2003 and 2007tonsillectomy 2011carpal tunnel right handtendon repair left handTAHbil ctr gian wrist surgery cyst removed from headleft foot bone spur removed Family History:Family History of ArthritisFamily History of AsthmaFH DiabetesFH HypertensionFH SeizuresFH Other CancerSocial/Personal History:Patient and fiance' are homelessNo petsFiance' smokes Smoking Status: never smokerChief Complaintlab resultsHistory of Present Illness (HPI)39 yo female here today for follow up visit and review of lab results. Pt verbalized medication compliance. Pt verbalized trying to maintain healthy diet and physical activities. Pt would like medication refills today. 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 HPI performed by: Diana PICKENS, December 02, 2019 2:51 PMTransitions of Care InboundProblem ReviewProblem List was reviewed and/or up dated during this visit.Medication Reconciliation & ReviewMedication List was reviewed and/or updated during this visit, including review of any bwpa-jhm-turduju medications, herbal therapies, and/or supplements.Allergy ReviewAllergy List was reviewed and/or updated during this visit.Adult Preventive CareProvider Calculated and Reviewed all Clinical Protocols for patient today. Labs/Meds/Other Counseling-Nutrition and Physical Activity:BMI Interpretation: Morbidly Obese (12/02/2019) Counseling: Done (12/02/2019) Physical Activity: Done (12/02/2019)Cancer Screening Review of Systems General: Denies loss of appetite, chills, dizziness, fatigue, fever, continued fever, headache, feeling ill, sweats, night sweats, sleep disturbances, weight loss. Eyes: Denies blurring of vision, double vision, irritation, discharge, vision loss, eye pain, eye swelling, droopy eyelid, sensitivity to light, redness, itching. Ears/Nose/Throat: Denies earache, ear discharge, ringing in ears, decreased hearing, nasal congestion, nosebleeds, runny nose, sore throat, hoarseness, difficulty swallowing, dry mouth, tooth pain, bleeding gums, swollen glands. Cardiovascular: Denies chest pain, palpitations, feeling faint, trouble breathing w/exertion, SOB upon lying down, SOB at night, peripheral edema, elevated blood pressure, decreased heart rate. Respiratory: Denies cough, difficulty breathing, shortness of breath, excessive sputum, coughing up blood, wheezing, chest pain. Breast: Denies discoloration, tenderness, breast changes, breast lump, nipple discharge. Gastrointestinal: Denies nausea, vomiting, ble eding, burning, itching, irritation, cramps, diarrhea, constipation. Genitourinary: Denies urinary incontinence, pain with urination, burning with urination, urinary frequency, urinary hesitancy, urinary urgency, urinary urgency at night, incomplete emptying, blood in urine, pelvic pain. Musculoskeletal: Denies back pain, joint pain, leg pain, joint swelling, body aches, muscle aches, muscle cramps, muscle weakness, stiffness, recent injury. Neurologic: Denies muscle impairment, weakness, numbness/tingling, seizures, slurred speech, feeling faint, tremors, vertigo, paralysis on one side, paralysi s on both sides. Psychiatric: Denies depression, anxiety, memory loss, mental disturbance, suicidal ideation, homicidal ideation, hallucinations, paranoia, feeling stressed, hearing voices. Heme/Lymphatic: Denies abnormal bruising, bleeding, enlarged lymph nodes. Physical ExamGeneral Appearance: well nourished, well hydrated, no acute distressEyes, External: conjunctivae and lids normal, EOMIRespiratory, Auscultation: clear to auscultation bilaterally; no rales, rhonchi, or wheezesRespiratory, Effort: no intercostal retractions or use of accessory musclesCardiovascular, Auscultation: S1, S2 audible; no murmur, rub, or gallop; RRRPeripheral Circulation: no clubbing, cyanosis, edema, or varicositiesAbdomen: soft, non-tender, no masses, bowel sounds normalGait & Station: normalSkin, Inspection: no rashes, lesions, or ulcerationsOrientation: oriented to time, place, and personMood & Affect: no depression, anxiety, or agitationJudgment & Insight: intactCare Management Plan Transitions of CareInboundRate Your HealthIn general, would you say your health is? Very GoodAssessment & Plan Problems:Assessed:Prediabetes (SVA85-X15.03) Assessment: Instructions: Hga1c 5.7. this is still indicating prediabetes. Please continue lifestyle.Hypertension (ICD-401.9) (JFO14-O62) Assessment: Instructions: Your blood pressure is at goal today. Please continue medications as prescribed. Please continue lifestyle changes to include healthy diet and physical activities. Please try to avoid added sodium in your diet.Health Screening (ICD-V70.0) (RUT04-D30.9) Assessment: Instructions: We have reviewed your lab results with you today. Please continue medications as prescribed. Please continue lifestyle changes to include healthy diet and physical activities. Please try to limit sugars, carbohydrates, and fats in your diet. Please try to avoid processed foods.MORBID OBESITY (ICD-278.01) (ICD10- E66.01) Assessment: Instructions: Please continue lifestyle changes to include healthy diet and physical activities. Please try to limit sugars, carbohydrates, and fats in your diet. Please try to avoid processed foods.HYPERLIPIDEMIA (ICD-272.4) (EOJ27-E05.5) Assessment: Instructions: Please continue medications as prescribed. Please continue lifestyle changes to include healthy diet and physical activities. Please try to limit sugars, carbohydrates, and fats in your diet. Please try to avoid processed foods.Anxiety depression (ICD-300.4) (DLR76-S60.8) Assessment: MIESHA 7 and PHQ 9 scores reviewed with patient. [facility] Instructions: Please continu to follow with [facility].Patient Instructions/Care Plan: Prediabetes: Hga1c 5.7. this is still indicating prediabetes. Please continue lifestyle.Hypertension: Your blood pressure is at goal today. Please continue medications as prescribed. Please continue lifestyle changes to include healthy diet and physical activities. Please try to avoid added sodium in your diet.Health Screening: We have reviewed your lab results with you today. Please continue medications as prescribed. Please continue lifestyle changes to include healthy diet and physical activities. Please try to limit sugars, carbohydrates, and fats in your diet. Please try to avoid processed foods.MORBID OBESITY: Please continue lifestyle changes to include healthy diet and physical activities. Please try to limit sugars, carbohydrates, and fats in your diet. Please try to avoid processed foods.HYPERLIPIDEMIA: Please continue medications as prescribed. Please continue lifestyle changes to include healthy diet and physical activities. Please try to limit sugars, carbohydrates, and fats in your diet. Please try to avoid processed foods.Anxiety depression: Please continu to follow [facility]. Plan developed in collaboration with patient and/or familyMedications:VITAMIN D3 41410 UNIT ORAL CAPSULETYLENOL EXTRA STRENGTH 500 MG ORAL TABLETNYSTATIN 188824 UNIT/GM EXTERNAL OINTMENTIMITREX 25 MG ORAL TABLETTRAZODONE HCL 100 MG ORAL TABLETATORVASTATIN CALCIUM 40 MG ORAL TABLETMETOPROLOL TARTRATE 25 MG ORAL TABLETBREO ELLIPTA 100-25 MCG/INH INHALATION AEROSOL POWDER BREATH ACTIVATEDFLUOXETINE HCL 40 MG ORAL CAPSULECLARITIN 10 MG ORAL TABLETOMEPRAZOLE 40 MG ORAL CAPSULE DELAYED RELEASEPROAIR HFA 108 (90 Base) MCG/ACT INHALATION AEROSOL SOLUTIONFERROUS SULFATE 325 (65 FE) MG ORAL TABLET DELAYED RELEASEMedication Changes:Refilled:ATORVASTATIN CALCIUM 40 MG ORAL TABLET-1 tab by mouth every night at bedtime Qty: 30[Tablet] Refills: 2 Method: ElectronicMETOPROLOL TARTRATE 25 MG ORAL TABLET-1 tab by mouth twice per day Qty: 60[Tablet] Refills: 2 Method: ElectronicBREO ELLIPTA 100-25 MCG/INH INHALATION AEROSOL POWDER BREATH ACTIVATED-1 puff by mouth daily Qty: 1[Inhaler] Refills: 2 Method: ElectronicCLARITIN 10 MG ORAL TABLET-1 pill po daily Qty: 30[Tablet] Refills: 3 Method: ElectronicOMEPRAZOLE 40 MG ORAL CAPSULE DELAYED RELEASE-1 pill po daily Qty: 30[Capsule] Refills: 2 Method: ElectronicPROAIR HFA 108 (90 Base) MCG/ACT INHALATION AEROSOL SOLUTION-2 puffs every 6 hrs, prn Qty: 1[Inhalation] Refills: 2 Method: ElectronicAllergies:NSAIDS (Critical)ASPIRIN (Moderate)IBUPROFEN (Moderate)Orders:COMP METABOLIC PANEL [CPT-07909] CBC W/DIFF [CPT-12708] HgBA1c [CPT-64958] LIPID PANEL [CPT-37530] Vitamin D 250H Unspecified [CPT-91346] Adult - Ofc Vst, EST, Level IV [CPT-19291] Follow-Up Return to clinic: 3 months for follow up Clinical Visit Summary CompletedMedications:PROAIR HFA 108 (90 Base) MCG/ACT INHALATION AEROSOL SOLUTION (ALBUTEROL SULFATE) 2 puffs every 6 hrs, prn #1[Inhalation] x 2 Entered and Authorized by: Diana PICKENS Method used: Electronically to [facility] (retail) [address] [place] [address] Fax: RxID: [id number] 40 MG ORAL CAPSULE DELAYED RELEASE (OMEPRAZOLE) 1 pill po daily #30[Capsule] x 2 Entered and Authorized by: Diana PICKENS Electronically signed by: Diana PICKENS on 0 12/02/2019 Method used: Electronically to [facility] (retail) [address] [place] [address] RxID: [id number] 10 MG ORAL TABLET (LORATADINE) 1 pill po daily #30[Tablet] x 3 Route:ORAL Entered and Authorized by: Diana PICKENS Method used: Electronically to [facility] (retail) [address] [place] [address] Ph: [phone] Note to Pharmacy: Route: ORAL; RxID: [id number] ELLIPTA 100-25 MCG/INH INHALATION AEROSOL POWDER BREATH ACTIVATED (FLUTICASONE FUROATE-VILANTEROL) 1 puff by mouth daily #1[Inhaler] x 2 Route:INHALATION Entered and Authorized by: Diana PICKENS Method used: Electronically to [facility] (retail) [address] [place] [address] Note to Pharmacy: Route: INH; RxID: [id number] TARTRATE 25 MG ORAL TABLET (METOPROLOL TARTRATE) 1 tab by mouth twice per day #60[Tablet] x 2 Route:ORAL Entered and Authorized by: Diana PICKENS Method used: Electronically to [facility] (retail) [address] [place] [address] Fax: Note to Pharmacy: Route: ORAL; RxID: [id number] CALCIUM 40 MG ORAL TABLET (ATORVASTATIN CALCIUM) 1 tab by mouth every night at bedtime #30[Tablet] x 2 Route:ORAL Entered and Authorized by: Diana PICKENS Method used: Electronically to [facility] (retail) [address] [place] [address] Note to Pharmacy: Route: ORAL; RxID: [id number] Administered/Entered:Vaccination Group: H1N1 InfluenzaSeries: 1 NOT GIVENVaccination: Influenza A (H1N1) Monoval PF Intramuscular SuspensionReason Not Given: Patient decisionEntered Date: 12/02/2019 12:00 AMComments: pt refusedEntered by: Ángela Bravo MA Name Value Range Interpretation Code Description Data Jennifer rce(s) Supporting Document(s) ID Date Data Source [id number] 12/01/2019 08:47:00 AM EST [facility] Name Value Range Interpretation Code Description Data Jennifer rce(s) Supporting Document(s) HGBA1C 5.7 % N [facility] ID Date Data Source [id number] 12/01/2019 08:47:00 AM EST [facility] Name Value Range Interpretation Code Description Data Jennifer rce(s) Supporting Document(s) BG FASTING 100 mg/dL 70-100 N [facility] VIT D25 TOT 22.2 ng/mL 30.0-100.[address] [facility] ID Date Data Source [id number] 12/01/2019 08:47:00 AM EST [facility] Name Value Range Interpretation Code Description Data Jennifer rce(s) Supporting Document(s) HCT 41.7 % 36.0-47.0 N [facility] HGB 13.5 g/dL 12.0-15.5 N [facility] MCH 32.4 G/DL pg 32.0-36.5 N [facility] MCHC 29.7 PG % 27.0-33.0 N [facility] PLATELETS 270 10 10*3/mm3 150-450 N [facility] RBC 4.55 10 10*6/mm3 4.00-5.40 N [facility] RDW 12.8 % 11.5-14.5 [facility] WBC TOTAL 6.3 4.0-10.0 N [facility] ID Date Data Source [id number] 12/06/2019 08:20:14 PM EST [facility] PCName: Scott Molina: 1980Provider: Jovanna Vasquez: 11/27/2019 History of Present IllnessShe is here for an initial evaluation of her left middle finger. She complains of pain and swelling and decreased range of motion. The symptoms have been present for 6 days. At that time she was falling around with her daughter. She accidentally kicked her middle finger, hyperextending the finger. She was seen at a local emergency room where an x-ray was taken. There were no fracture seen. She has been wearing a splint on the finger all the time, coming out of it to work on range of motion. Results/DataXRays that accompany the patient were reviewed today. Side: Left Site: middle finger Findings: No fractures, dislocations, or degenerative changes. AssessmentSOS Assessment Dragon Form: Right middle finger PIP joint sprain, initial encounter PlanPlan, Assessment and Recommendation(s) Schedule Appointment: Weeks: 3 She is most tender over the PIP joint, consistent with a sprain of the PIP joint of the left middle finger. This will be treated with anshul taping of the middle and ring finger and gentle range of motion exercises. We'll see her back in 3 weeks for recheck. Work / School NoteThe percentage of temporary impairment is 0%. This document was dictated and electronically signed using [employer] software. A reasonable at tempt at proof reading has been made to minimize errors. Please call with any questions. Signatures Electronically signed by : Marielena Vasquez NP; Nov 27 2019 9:14AM EST (Author) Electronically signed by : Shaq Lopez M.D.; Dec 06 2019 8:20PM EST Name Value Range Interpretation Code Description Data Jennifer rce(s) Supporting Document(s) Procedure Social History Code Duration Value Status Description Data Source(s ) Smoking 12/22/2020 12:00:00 AM EST Unknown if ever smoked comp leted Unknown if ever smoked [facility] ([facility]) Alcohol intake 12/07/2020 12:00:00 AM EST Yes completed [facility] Smoking 12/07/2020 12:00:00 AM EST Never smoker completed Never s moker [facility] Smoking 12/05/2020 12:00:00 AM EST Unknown if ever smoked comp leted Unknown if ever smoked [facility] ([facility]) Smoking 11/21/2020 12:00:00 AM EST Unknown if ever smoked comp leted Unknown if ever smoked [facility] ([facility]) Smoking 11/01/2020 12:00:00 AM EST Unknown if ever smoked comp leted Unknown if ever smoked [facility] ([facility]) Smoking 10/05/2020 12:00:00 AM EST Unknown if ever smoked comp leted Unknown if ever smoked [facility] ([facility]) Smoking 09/20/2020 12:00:00 AM EDT Unknown if ever smoked comp leted Unknown if ever smoked [facility] ([facility]) Smoking 08/29/2020 12:00:00 AM EDT Unknown if ever smoked comp leted Unknown if ever smoked [facility] ([facility] Smoking 08/26/2020 12:00:00 AM EDT Unknown if ever smoked comp leted Unknown if ever smoked [facility] ([facility]) Smoking 05/20/2020 12:00:00 AM EDT Unknown if ever smoked comp leted Unknown if ever smoked [facility] ([facility]) Smoking 05/10/2020 12:00:00 AM EDT Unknown if ever smoked comp leted Unknown if ever smoked [facility] ([facility]) Smoking 04/27/2020 12:00:00 AM EDT Unknown if ever smoked comp leted Unknown if ever smoked [facility] ([facility]) Smoking 04/12/2020 12:00:00 AM EDT Unknown if ever smoked comp leted Unknown if ever smoked [facility] ([facility]) Smoking 03/28/2020 12:00:00 AM EDT Unknown if ever smoked comp leted Unknown if ever smoked [facility] ([facility]) Smoking 03/14/2020 12:00:00 AM EDT Unknown if ever smoked comp leted Unknown if ever smoked [facility] ([facility]) Smoking 02/23/2020 12:00:00 AM EDT Unknown if ever smoked comp leted Unknown if ever smoked [facility] ([facility]) Smoking 02/04/2020 12:00:00 AM EDT Unknown if ever smoked comp leted Unknown if ever smoked [facility] ([facility]) Smoking 01/18/2020 12:00:00 AM EST Unknown if ever smoked comp leted Unknown if ever smoked [facility] ([facility]) Smoking 11/13/2019 12:00:00 AM EST Unknown if ever smoked comp leted Unknown if ever smoked [facility] ([facility]) Vital Signs ID Date Data Source UNK Name Value Range Interpretation Code Description Data Source(s) Diastolic blood pressure 80 mm[Hg] 80 mm[Hg] [facility] Systolic blood pressure 124 mm[Hg] 124 mm[Hg] [facility] Oxygen saturation in Arterial blood by Pulse oximetry 97 % 97 % [facility] Body mass index (BMI) [Ratio] 40.97 kg/m2 40.97 kg/m2 [facility] Body weight 101.606 kg 101.606 kg [facility] Body height 157.5 cm 157.5 cm [facility] Heart rate 60 /min 60 /min [facility] Diastolic blood pressure 0 mm[Hg] Normal (applies to non-numeric results) 0 mm[Hg] [facility] ([facility]) Systolic blood pressure 0 mm[Hg] Normal (applies t o non-numeric results) 0 mm[Hg] [facility] ([facility]) Body mass index (BMI) [Ratio] 0.00 kg/m2 No rmal (applies to non-numeric results) 0.00 kg/m2 [facility] Body weight Measured 0.00 lbs Normal (applies to n on-numeric results) 0.00 lbs [facility] ([facility]) Body height 0.00 in Normal (applies to non-numeric resu lts) 0.00 in [facility] ([facility]) Body surface area Derived from formula 2.01 m2 2.01 m2 [facility] ([facility]) Body weight 101.606 kg 101.606 kg [facility] ([facility]) Russell body weight 110 [lb_av] 110 [lb_av] [facility] ([facility], ) Body mass index (BMI) [Ratio] 41.0 kg/m2 41.0 k g/m2 [facility] ([facility]) Body weight 224.00 [lb_av] 224.00 [lb_av] [facility] ([facility], ) Body height 62 [in_i] 62 [in_i] [facility] ([facility]) 5'2" Body surface area Derived from formula 2.01 m2 2.01 m2 [facility] ([facility], ) Body weight 101.606 kg 101.606 kg [facility] ([facility]) Russell body weight 110 [lb_av] 110 [lb_av] [facility] ([facility]) Body mass index (BMI) [Ratio] 41.0 kg/m2 41.0 k g/m2 [facility] ([facility]) Body weight 224.00 [lb_av] 224.00 [lb_av] [facility] ([facility]) Body height 62 [in_i] 62 [in_i] [facility] ([facility]) 5'2" Diastolic blood pressure 0 mm[Hg] Normal (applies to non-numeric results) 0 mm[Hg] [facility] ([facility]) Systolic blood pressure 0 mm[Hg] Normal (applies t o non-numeric results) 0 mm[Hg] [facility] ([facility]) Body mass index (BMI) [Ratio] 0.00 kg/m2 No rmal (applies to non-numeric results) 0.00 kg/m2 [facility] ([facility]) Body weight Measured 0.00 lbs Normal (applies to n on-numeric results) 0.00 lbs [facility] ([facility]) Body height 0.00 in Normal (applies to non-numeric resu lts) 0.00 in [facility] ([facility] [address] [facility]) Respiratory rate 16 /min 16 /min [facility] ( [facility] Heart rate 68 /min 68 /min [facility] ([facility], ) Diastolic blood pressure 80 mm[Hg] 80 mm[Hg] [facility] ([facility]) Systolic blood pressure 126 mm[Hg] 126 mm[Hg] [facility] ([facility], ) Body height 62 [in_i] 62 [in_i] [facility] ([facility] ) 5'2" Body temperature 97.0 [degF] 97.0 [degF] [facility] ([facility]) Body surface area Derived from formula 1.97 m2 1.97 m2 [facility] ([facility]) Body weight 97.070 kg 97.070 kg [facility] ([facility]) Russell body weight 110 [lb_av] 110 [lb_av] [facility] ([facility]) Body mass index (BMI) [Ratio] 39.1 kg/m2 39.1 k g/m2 [facility] ([facility]) Body weight 214.00 [lb_av] 214.00 [lb_av] [facility] ([facility]) Body height 62 [in_i] 62 [in_i] [facility] ([facility]) 5'2" Body weight 97.070 kg 97.070 kg [facility] ([facility]) Body mass index (BMI) [Ratio] 39.1 kg/m2 39.1 k g/m2 [facility] Body weight 214.00 [lb_av] 214.00 [lb_av] [facility] ([facility]) Body height 62 [in_i] 62 [in_i] [facility] ([facility]) 5'2" Body weight 97.070 kg 97.070 kg [facility] ([facility]) Body mass index (BMI) [Ratio] 39.1 kg/m2 39.1 k g/m2 [facility] ([facility]) Body weight 214.00 [lb_av] 214.00 [lb_av] [facility] ([facility]) Body height 62 [in_i] 62 [in_i] [facility] ([facility]) 5'2" Body surface area 2.00 m2 2.00 m2 [facility] ([facility]) Body mass index (BMI) [Ratio] 40.8 kg/m2 40.8 k g/m2 [facility] ([facility]) Body height 62 [in_i] 62 [in_i] [facility] 5'2" Body weight 223.00 [lb_av] 223.00 [lb_av] MEDEN T ([facility]) Heart rate 65 /min 65 /min [facility] ([facility]) Diastolic blood pressure 78 mm[Hg] 78 mm[Hg] [facility] ([facility]) Systolic blood pressure 104 mm[Hg] 104 mm[Hg] M PAT ([facility]) Patient Treatment Plan of Care Planned Activity Planned Date Details Description Data Source (s) Metoprolol Tartrate 25 MG Oral Tablet 12/07/2020 12:00:00 AM EST [facility] Prednisone 20 MG Oral Tablet 11/04/2020 12:00:00 AM EST [facility] Cyclobenzaprine hydrochloride 5 MG Oral Tablet 11/04/2020 12:00:00 AM EST [facility] zonisamide 100 MG Oral Capsule 10/19/2020 12:00:00 AM EST [facility] Ondansetron 4 MG Disintegrating Oral Tablet 08/16/2020 12:00:00 AM EDT [facility] ferrous sulfate 325 MG Delayed Release Oral Tablet 08/16/2020 12 :00:00 AM EDT [facility] zonisamide 50 MG Oral Capsule 07/26/2020 12:00:00 AM EDT [facility] zonisamide 25 MG Oral Capsule 06/21/2020 12:00:00 AM EDT [facility] Metoprolol Tartrate 25 MG Oral Tablet [facility]
[2021-01-09] MEDS ORDERED: methocarbamoL 500 MG TAB PO ONE (23:15)
[2021-01-09] MEDS ORDERED: ACETAMINOPHEN 325 MG TAB PO ONE (23:15)
--- NOTE | 2021-01-09 23:43 | REPVR ---
PROCEDURE INFORMATION: Exam: XR Left Wrist Exam date and time: 01/09/2021 11:32 PM Age: 40 years old Clinical indication: Pain; Wrist; Left; Additional info: Fall injury TECHNIQUE: Imaging protocol: XR Left wrist. Views: 3 or more views. COMPARISON: CR Wrist, complete LEFT 02/20/2017 1:15 PM FINDINGS: Bones/joints: Normal. No fracture. Soft tissues: Normal. IMPRESSION: Negative left wrist without change from 02/20/2017. Electronically signed by: Jose Antonio Isbell On 01/09/2021 23:43:48 PM
--- NOTE | 2021-01-09 23:45 | REPVR ---
PROCEDURE INFORMATION: Exam: XR Left Ankle Exam date and time: 01/09/2021 11:32 PM Age: 40 years old Clinical indication: Pain; Ankle; Left; Additional info: Fall injury TECHNIQUE: Imaging protocol: XR Left ankle. Views: 3 or more views. COMPARISON: CR Ankle, complete LEFT 04/16/2020 7:08 PM FINDINGS: Bones/joints: Slight irregularity of the fibular tip which is similar to the prior study. No fracture. Moderate inferior calcaneal spurring. Soft tissues: Normal. IMPRESSION: 1. Moderate inferior calcaneal spurring. 2. Otherwise negative left ankle without change from 04/16/2020. Electronically signed by: Jose Antonio Isbell On 01/09/2021 23:45:09 PM
[2021-01-09] MEDS ORDERED: ROBA750T4 PO (23:51)
[2021-01-10 00:15] VITALS: BP 151/75
--- OUTSIDE RECORDS SUMMARY | 2021-01-10 00:43 | CCD ---
Author Author [facility] Organization [facility] Address Unknown Phone Unavailable Support Name Relationship Address Phone MILES, LADONNA Next Of Kin [address] [place] [address] JENNIFER [place] [address] Ladonna Yovani Next Of Kin Unknown Unavailable YOVANI, MELLY Next Of Kin [address] [place] [address] Miles III, Ronald Next Of Kin [address] [place] [address] Yassine RICKETTSP, Diana Next Of Kin [address] [place] [address] Mary MORENO Jeannie Next Of Kin [address] [place], [place] [id number] Rubens RPA-C, Yamilex Next Of Kin [address] [place] [address] Felix Butt MD Next Of Kin [address] [place] [address] Nishant RPA-C, Callie Next Of Kin [address] [place] [address] YOVANI, ROSA MARIA Next Of Kin [address] [place] [address] MILES, JACINTA Next Of Kin [address] [place] [address] DONNA LUTZ Next Of Kin [address] [place] [address] CATALINO LUTZ Next Of Kin [address] [place] [id number] NO, CONTACT Next Of Kin Unknown MILES, RONALD Next Of Kin [address] [facility] [address] [place] [address] RONALD RUBIO Next Of Kin [address] [facility] [address] [place] [address] NONE GWENDOLYN G[place] [address] [place] [address] UN P[place] [address] UN FISH, SEBASTIAN Next Of Kin [address] [place] [address] ABY ALBRIGHT Next Of Kin [address] [facility] 5 [place] [address] LUCINA CARVAJAL Next Of Kin [address] [place] [address] JESSY Next Of Kin [address] [place] [address] JOE LAWRENCE Next Of Kin [address] [place] [address] ARTSJUG Next Of Kin [address] [place] [address] ST[facility]ENT [facility] Next Of Kin Unknown Unavailab Karl Schaffer Next Of Kin [address] [place] [address] IVAN STORY Next Of Kin [facility] [address] [place] [address] TERRI ABRAHAM Next Of Kin [address] [place] [id number] DISABLED Next Of Kin UN UN, UN UN UN UE Next Of Kin Unknown Unavailable KATHLEEN ABEBE Next Of Kin [address] [place] [address] PAPITO CARVAJAL Next Of Kin [address] [place] [address] Ronald Pina III ECON [address] [place] [address] [phone] RONALD PINA [address] [place] [address] [phone] Care Team Providers Care Plumbing Assembler Installer Name Role Phone Dillard, C Callie PA [...] Unavailable Dillard, C Callie PA Unavailable Unavailable Park, Eunmi Unavailable Kocan, J Pricilla ASSEMBLER KNIFE Unavailable Unavailable Kocan, J Pricilla ASSEMBLER KNIFE Unavailable Unavailable Kocan, J Pricilla ASSEMBLER KNIFE Unavailable Unavailable Kocan, J Pricilla ASSEMBLER KNIFE Unavailable Unavailable Kocan, J Pricilla ASSEMBLER KNIFE Unavailable Unavailable Kocan, J Pricilla ASSEMBLER KNIFE Unavailable Unavailable Kocan, J Pricilla ASSEMBLER KNIFE Unavailable Unavailable Kocan, J Pricilla ASSEMBLER KNIFE Unavailable Unavailable Kocan, J Pricilla ASSEMBLER KNIFE Unavailable Unavailable Kocan, J Pricilla ASSEMBLER KNIFE Unavailable Unavailable Kocan, J Pricilla ASSEMBLER KNIFE Unavailable Unavailable Kocan, J Pricilla ASSEMBLER KNIFE Unavailable Unavailable Kocan, J Pricilla ASSEMBLER KNIFE Unavailable Unavailable JUNE, KOMAL CALDERON Unavailable Unavailable [...] Unavailable JUNE, KOMAL MD Unavailable Unavailable Pascale CALZADA DPM Unavailable Unavailable [place] CALZADA DPM Unavailable Unavailable [place]ascale CALZADA DPM Unavailable Unavailable [place] CALZADA DPM Unavailable Unavailable [place] CALZADA DPM Unavailable Unavailable [place] CALZADA DPM Unavailable Unavailable [place] CALZADA DPM Unavailable Unavailable MAJAK, R AUDERY DPM Unavailable Unavailable MAJAK, R AUDREY DPM Unavailable Unavailable MAJAK, R AUDREY DPM Unavailable Unavailable MAJAK, R AUDREY DPM Unavailable Unavailable MAJAK, R AUDREY DPM Unavailable Unavailable MAJAK, R AUDREY DPM Unavailable Unavailable MAJAK, R AUDREY DPM Unavailable Unavailable MAJAK, R AUDREY DPM Unavailable Unavailable MAJAK, R AUDREY DPM Unavailable Unavailable MAJAK, R AUDERY DPM Unavailable Unavailable MAJAK, R AUDREY DPM [...] Short, Alcides Unavailable Unavailable Yassine, A Diana INTERNATIONAL MARKETING EXECUTIVE Unavailable Unavailable Yassine, A Diana INTERNATIONAL MARKETING EXECUTIVE Unavailable Unavailable Yassine, A Diana INTERNATIONAL MARKETING EXECUTIVE Unavailable Unavailable Yassine, A Diana INTERNATIONAL MARKETING EXECUTIVE Unavailable Unavailable [place], A Diana INTERNATIONAL MARKETING EXECUTIVE Unavailable Unavailable [place], A Diana INTERNATIONAL MARKETING EXECUTIVE Unavailable Unavailable [place], A Diana INTERNATIONAL MARKETING EXECUTIVE Unavailable Unavailable [place], A Diana INTERNATIONAL MARKETING EXECUTIVE Unavailable Unavailable [place], A Diana INTERNATIONAL MARKETING EXECUTIVE Unavailable Unavailable [place], A Diana INTERNATIONAL MARKETING EXECUTIVE Unavailable Unavailable [place], A Diana INTERNATIONAL MARKETING EXECUTIVE Unavailable Unavailable [place], A Diana INTERNATIONAL MARKETING EXECUTIVE Unavailable Unavailable [place], A Diana INTERNATIONAL MARKETING EXECUTIVE Unavailable Unavailable [place], A Diana INTERNATIONAL MARKETING EXECUTIVE Unavailable Unavailable [place], A Diana INTERNATIONAL MARKETING EXECUTIVE Unavailable Unavailable [place], A Diana INTERNATIONAL MARKETING EXECUTIVE Unavailable Unavailable [place], A Diana INTERNATIONAL MARKETING EXECUTIVE Unavailable Unavailable [place], A Diana INTERNATIONAL MARKETING EXECUTIVE Unavailable Unavailable [place], A Diana INTERNATIONAL MARKETING EXECUTIVE Unavailable Unavailable [place], A Diana INTERNATIONAL MARKETING EXECUTIVE Unavailable Unavailable [place], A Diana INTERNATIONAL MARKETING EXECUTIVE Unavailable Unavailable [place], A Diana INTERNATIONAL MARKETING EXECUTIVE Unavailable Unavailable [place], A Diana INTERNATIONAL MARKETING EXECUTIVE Unavailable Unavailable [place], A Diana INTERNATIONAL MARKETING EXECUTIVE Unavailable Unavailable [place], A Diana INTERNATIONAL MARKETING EXECUTIVE Unavailable Unavailable [place], A Diana INTERNATIONAL MARKETING EXECUTIVE Unavailable Unavailable [place], A Diana INTERNATIONAL MARKETING EXECUTIVE Unavailable Unavailable [place], A Diana INTERNATIONAL MARKETING EXECUTIVE Unavailable Unavailable Megan Vasquez MD Unavailable Unavailable ChristinaMegan frank MD Unavailable Unavailable ChristinaMegan frank MD Unavailable Unavailable ChristinaMegan frank MD Unavailable Unavailable EuniceMegan frank MD Unavailable Unavailable ChristinaMegan frank MD Unavailable Unavailable ChristinaMegan frank MD Unavailable Unavailable EuniceMegan frank MD Unavailable Unavailable EuniceMegan frank MD Unavailable Unavailable EuniceMegan frank MD Unavailable Unavailable ChristinaMegan frank MD Unavailable Unavailable EuniceMegan waite MD Unavailable Unavailable ChristinaMegan frank MD Unavailable Unavailable EuniceMegan waite MD Unavailable Unavailable ChristinaMegan waite MD Unavailable Unavailable EuniceMegan waite MD Unavailable Unavailable ChristinaMegan waite MD Unavailable Unavailable ChristinaMegan waite MD Unavailable Unavailable ChristinaMegan waite MD Unavailable Unavailable EuniceMegan waite MD Unavailable Unavailable EuniceMegan waite MD Unavailable Unavailable EuniceMegan waite MD Unavailable Unavailable EuniceMegan waite MD Unavailable Unavailable EuniceMegan waite MD Unavailable Unavailable EuniceMegan waite MD Unavailable Unavailable EuniceMegan waite MD Unavailable Unavailable EuniceMegan waite MD Unavailable Unavailable ChristinaMegan waite MD Unavailable Unavailable EuniceMegan waite MD Unavailable Unavailable EuniceMegan waite MD Unavailable Unavailable ChristinaMegan waite MD Unavailable Unavailable EuniceMegan waite MD Unavailable Unavailable EuniceMegan waite MD Unavailable Unavailable ChristinaMegan waite MD Unavailable Unavailable ChristinaMegan waite MD Unavailable Unavailable EuniceMegan waite MD Unavailable Unavailable ChristinaMegan waite MD Unavailable Unavailable Fran, K Isidra PMH-ORTHOTIST PROSTHETIST Unavailable Unavailable Fran, K Isidra PMH-ORTHOTIST PROSTHETIST Unavailable Unavailable Fran, K Isidra PMH-ORTHOTIST PROSTHETIST Unavailable Unavailable Fran, K Isidra PMH-ORTHOTIST PROSTHETIST Unavailable Unavailable Fran, K Isidra PMH-ORTHOTIST PROSTHETIST Unavailable Unavailable [place]ston, K Isidra PMH-ORTHOTIST PROSTHETIST Unavailable Unavailable Milo, W Ross PA Unavailable [...] Unavailable ALYSON, SHREYAS CALDERON Unavailable Unavailable Ryley Lopze MD Unavailable Lopez, G Shaq MD Unavailable [...] II, El PA Unavailable Unavailable Yassine, Diana INTERNATIONAL MARKETING EXECUTIVE INTERNATIONAL MARKETING EXECUTIVE Unavailable Unavailable Yassine, A Diana INTERNATIONAL MARKETING EXECUTIVE Unavailable Unavailable Yassine, A Diana INTERNATIONAL MARKETING EXECUTIVE Unavailable Unavailable Yassine, A Diana INTERNATIONAL MARKETING EXECUTIVE Unavailable Unavailable Yassine, A Diana INTERNATIONAL MARKETING EXECUTIVE Unavailable Unavailable Yassine, A Diana INTERNATIONAL MARKETING EXECUTIVE Unavailable Unavailable Yassine, A Diana INTERNATIONAL MARKETING EXECUTIVE Unavailable Unavailable Yassine, A Diana INTERNATIONAL MARKETING EXECUTIVE Unavailable Unavailable Yassine, A Diana INTERNATIONAL MARKETING EXECUTIVE Unavailable Unavailable Yassine, A Diana INTERNATIONAL MARKETING EXECUTIVE Unavailable Unavailable Yassine, A Diana INTERNATIONAL MARKETING EXECUTIVE Unavailable Unavailable Yassine, A Diana INTERNATIONAL MARKETING EXECUTIVE Unavailable Unavailable Yassine, A Diana INTERNATIONAL MARKETING EXECUTIVE Unavailable Unavailable Yassine, A Diana INTERNATIONAL MARKETING EXECUTIVE Unavailable Unavailable Yassine, A Diana INTERNATIONAL MARKETING EXECUTIVE Unavailable Unavailable Yassine, A Diana INTERNATIONAL MARKETING EXECUTIVE Unavailable Unavailable Yassine, A Diana INTERNATIONAL MARKETING EXECUTIVE Unavailable Unavailable [place], A Diana INTERNATIONAL MARKETING EXECUTIVE Unavailable Unavailable [place], A Diana INTERNATIONAL MARKETING EXECUTIVE Unavailable Unavailable [place], A Diana INTERNATIONAL MARKETING EXECUTIVE Unavailable Unavailable Yassine, A Diana INTERNATIONAL MARKETING EXECUTIVE Unavailable Unavailable Yassine, A Diana INTERNATIONAL MARKETING EXECUTIVE Unavailable Unavailable Yassine, A Diana INTERNATIONAL MARKETING EXECUTIVE Unavailable Unavailable Yassine, A Diana INTERNATIONAL MARKETING EXECUTIVE Unavailable Unavailable Yassine, A Diana INTERNATIONAL MARKETING EXECUTIVE Unavailable Unavailable [place], A Diana INTERNATIONAL MARKETING EXECUTIVE Unavailable Unavailable Yassine, A Diana INTERNATIONAL MARKETING EXECUTIVE Unavailable Unavailable Yassine, A Diana INTERNATIONAL MARKETING EXECUTIVE Unavailable Unavailable Yassine, A Diana INTERNATIONAL MARKETING EXECUTIVE Unavailable Unavailable HAWKINS, CAMILA MD Unavailable Unavailable HAWKINS, CAMILA MD Unavailable Unavailable HAWKINS, CAMILA MD Unavailable Unavailable HAWKINS, CAMILA MD Unavailable Unavailable HAKWINS, CAMILA MD Unavailable Unavailable HAWKINS, CAMILA MD [...] is protected by Article 27-F of the [facility] Public Health law. If you continue you may have access to information: Regarding HIV / AIDS; Provided by facilities licensed or operated by the [facility] Office of Mental Health; or Provided by the [facility] Office for People With Developmental Disabilities. If such information is present, then the following [facility] mandated warning applies: This information has been [...] law may result in a fine or alf sentence or both. A general authorization for the release of medical or other information is NOT sufficient authorization for further disc losure. Allergies and Adverse Reactions Type Description Substance Reaction Status Data Source(s ) Propensity to adverse reactions IBUPROFEN Ibuprofen Acti ve [facility] Family History Family Member Name Family Member Gender Family Member Status Date o f Status Description Data Source(s) Unknown Unknown Problem [facility] ([facility] ) Type unknown Encounters Encounter Providers Location Date Indications Data Source(s ) Attender: Miguel Ángel Almanza 12/22/2020 12:00:00 AM EST [facility] ([facility]) Extended Individual Psychotherapy - 45 min Attender: [facility] 12/21/2020 03:00:00 AM EST - 12/21/2020 03:00:00 AM EST [facility] ([facility]) Office Visit Attender: AUDREY CALZADA [facility] Office 11/26 08:00:00 AM EST [facility] ([facility] Outpatient Attender: Pricilla VILLALOBOS.EVANGELIST-SJP.EVANGELIST 2020 12:00:00 AM EST - 12/07/2020 01:57:25 PM EST [facility] Extended Individual Psychotherapy - 45 min Attender: [facility] 12/05/2020 12:00:00 PM EST - 12/05/2020 12:00:00 PM EST [facility] ([facility] Attender: [facility] 12/05/2020 12:00:00 AM EST [facility] ([facility]) Outpatient Attender: Hailey [place] Main office - [facility] 11/24/2020 08:15:00 AM EST [facility] ([facility] FRANCIS Bang) Outpatient Attender: Isidra Peters [facility]TH[facility] PROSTHETIST [facility] 11/21/2020 03:30:00 AM EST - 11/21/2020 03:30:00 AM EST [facility] ([facility] Attender: Isidra Peters [facility] PROSTHETIST 11/21/2020 12: 00:00 AM EST [facility] ([facility] Extended Individual Psychotherapy - 45 min Attender: [facility] 11/01/2020 12:00:00 PM EST - 11/01/2020 12:00:00 PM EST [facility] ([facility]) Attender: [facility] 11/01/2020 12:00:00 AM EST [facility] ([facility] Outpatient Attender: El Rangel/Jayde/Jerman/Rein radha 10/13/2020 12:45:00 PM EST [facility] ([facility] Lisette richard, FRANCIS) Extended Individual Psychotherapy - 45 min Attender: [facility] 10/05/2020 03:00:00 AM EST - 10/05/2020 03:00:00 AM EST [facility] ([facility]) Attender: [facility] 10/05/2020 12:00:00 AM EST [facility] ([facility] Extended Individual Psychotherapy - 45 min Attender: [facility] 09/20/2020 04:00:00 AM EDT - 09/20/2020 04:00:00 AM EDT [facility] ([facility]) Attender: [facility] 09/20/2020 12:00:00 AM EDT [facility] ([facility]/12/2020 12:07:03 P M EDT [facility] Recurring Patient Attender: Alcides Ramírezerrer: Callie WILLS 09/12/2020 12:01:29 PM EDT [facility] Outpatient Attender: Isidra Peters [facility] 08/29/2020 03:30:00 AM EDT - 08/29/2020 03:30:00 AM EDT [facility] ([facility]) Attender: Isidra Peters [facility] 08/29/2020 12: 00:00 AM EDT [facility] ([facility]) Outpatient [facility]: [facility] 08/26/2020 11:2 6:02 AM EDT [facility] Extended Individual Psychotherapy - 45 min Attender: Miguel Ángel Almanza [facility] 08/26/2020 05:00:00 AM EDT - 08/26/2020 05:00:00 AM EDT [facility] ([facility] Attender: Miguel Ángel Almanza 08/26/2020 12:00:00 AM EDT [facility] ([facility] Outpatient Attender: CAMILA HAWKINS MD Physical Therapy 01:15:00 PM EDT [facility] ([facility]) Outpatient [facility]: [facility] 08/15/2020 07:32:02 P M EDT [facility] Office Visit Attender: AUDREY CALZADA [facility] Office 07/27 01:30:00 PM EDT [facility]: [facility] 08/13/2020 09:53:00 A M EDT [facility] Outpatient [facility]: [facility] 08/12/2020 03:09:00 P M EDT [facility] Outpatient [facility]: [facility] 08/12/2020 07:50:01 A M EDT [facility] Outpatient Attender: Hailey WILLS Main office - [facility] 08/09/2020 02:00:00 PM EDT [facility] ([facility] Outpatient Attender: NELIA Yassine [facility] 07/31/2020 03:38:01 P M EDT [facility] Outpatient Attender: Diana Metzger [facility] 07/31/2020 03:3 8:00 PM EDT [facility] Outpatient Attender: Shaq Lopez MDReferrer: Barak hood Yassine [facility] 07/25/2020 04:01:08 PM EDT [facility] Outpatient Attender: Diana Metzger [facility] 07/19/2020 10:1 8:01 PM EDT [facility] Outpatient Attender: Diana Metzger [facility] 07/12/2020 08:3 1:00 AM EDT [facility] Outpatient Attender: NELIA Metzger [facility] 07/11/2020 07:32:00 A M EDT [facility] Outpatient Attender: CAMILA HAWKINS MD Physical Therapy 11:15:00 AM EDT [facility] ([facility]) Outpatient Attender: Marielena Vasquez MDReferrer: Dianara Metzger [facility] 06/21/2020 12:32:43 PM EDT [facility] Outpatient Attender: KOMAL WATKINS MD Main office - [facility] 06/17/2020 11:00:00 AM EDT [facility] ([facility]) Outpatient Attender: AUDREY CALZADA [facility] 05/26 01:15:00 PM EDT [facility] ([facility] Outpatient SJP-SJP 06/08/2020 10:57:53 PM EDT [facility] Outpatient Attender: CAMILA HAWKINS MD Physical Therapy 03:00:00 PM EDT [facility] ([facility]) Outpatient Referrer: SHREYAS SHIELDS MD SJP.CT-SJP.SYR 05/26/2020 07:58:04 AM EDT [facility] Outpatient Attender: Marielena Vasquez MDReferrer: Diana PICKENS 05/25/2020 10:53:35 AM EDT [facility] Outpatient Attender: SHREYAS SHIELDS MDReferrer: SHREYAS VILLALOBOS .EVANGELIST-SJP 05/24/2020 02:12:31 PM EDT - 05/24/2020 03:16:44 PM EDT [facility] Outpatient Referrer: SHREYAS CONNOR-SJHarvinderEVANGELIST 05/24/2020 12:00:00 AM EDT [facility] Outpatient 05/23/2020 04:42:00 AM EDT [facility] Recurring Patient Attender: Alcides ChReferrer: Callie WILLS 05/20/2020 03:08:32 PM EDT [facility] [id number]"Psychotherapy Attender: Johanneyamil Cami [facility] 05/20/2020 11:00:00 AM EDT - 05/20/2020 11:00:00 AM EDT [facility] ([facility]) Attender: Miguel Ángel Almanza 05/20/2020 12:00:00 AM EDT [facility] ([facility]) Outpatient Attender: Diana PICKENS 05/19/2020 03:2 3:59 PM EDT [facility] Outpatient Attender: NELIA PICKENS 05/19/2020 10:58:00 A M EDT [facility] Outpatient Attender: El Rangel/Jayde/Jerman/Xavier garcia 05/16/2020 02:30:00 PM EDT [facility] ([facility] Outpatient Attender: NELIA ALMARAZ 05/11/2020 03:05:01 P M EDT [facility] [id number]"Psychotherapy Attender: Xiangsivlio Cami [facility] 05/10/2020 03:45:00 AM EDT - 05/10/2020 03:45:00 AM EDT [facility] ([facility]) Attender: Miguel Ángel Almanza 05/10/2020 12:00:00 AM EDT [facility] ([facility]) Outpatient Attender: Diana PICKENS FP 05/05/2020 08:1 5:05 AM EDT [facility] Outpatient Attender: SHREYAS SHIELDS MD SJP-SJP.GVR 05/02/2020 08:03:04 AM EDT [facility] Outpatient 04/29/2020 05:15:00 AM EDT [facility] TEMPMHCTelemed 30" Psychotherapy Attender: [facility] 04/27/2020 11:15:00 AM EDT - 04/27/2020 11:15:00 AM EDT [facility] ([facility]) Attender: Xiangpayamil Cami 04/27/2020 12:00:00 AM EDT [facility] ([facility]) [id number]"Psychotherapy [facility] 04/12/2020 11:45:00 AM EDT - 04/12/2020 11:45:00 AM EDT [facility] ([facility]) Attender: Miguel Ángel Almanza 04/12/2020 12:00:00 AM EDT [facility] ([facility]) Outpatient 03/30/2020 05:44:00 AM EDT [facility] TEMPMHCTelemed 30" Psychotherapy Attender: [facility] 03/28/2020 12:30:00 PM EDT - 03/28/2020 12:30:00 PM EDT [facility] ([facility]) [facility] 03/28/2020 12:00:00 AM EDT [facility] ([facility]) Outpatient Attender: Diana PICKENS FP 03/18/2020 02:1 3:00 PM EDT [facility] Outpatient Attender: ENLIA ALMARAZ 03/16/2020 03:54:03 P M EDT [facility] Outpatient Attender: NELIA ALMARAZ 03/16/2020 09:56:00 A M EDT [facility] TEMPMHCTelemed 30" Psychotherapy Attender: [facility] 03/14/2020 12:30:00 PM EDT - 03/14/2020 12:30:00 PM EDT [facility] ([facility] Attender: Miguel Ángel Almanza 03/14/2020 12:00:00 AM EDT [facility] ([facility] Outpatient Attender: Diana ALMARAZ 03/07/2020 02:0 4:00 PM EDT [facility] Outpatient Attender: Diana ALMARAZ 03/06/2020 12:0 6:02 AM EDT [facility] Outpatient Attender: NELIA ALMARAZ 03/06/2020 12:06:02 A M EDT [facility] Outpatient Attender: Diana ALMARAZ 03/01/2020 09:0 6:00 PM EDT [facility] Outpatient Attender: Diana ALMARAZ 02/26/2020 04:0 9:00 PM EDT [facility] [id number]"Psychotherapy Attender: Miguel Ángel Almanza [facility] 02/23/2020 11:45:00 AM EDT - 02/23/2020 11:45:00 AM EDT [facility] ([facility] Attender: Miguel Ángel Almanza 02/23/2020 12:00:00 AM EDT [facility] ([facility] Outpatient Attender: NELIA ALMARAZ 02/22/2020 04:14:01 P M EDT [facility] Outpatient Attender: NELIA ALMARAZ 02/19/2020 08:01:28 P M EDT [facility] Outpatient Attender: NELIA ALMARAZ 02/11/2020 01:34:00 P M EDT [facility] Outpatient Attender: El Rangel/Jayde/Jerman/Rein dl 02/08/2020 08:00:00 AM EDT [facility] ([facility] Extended Individual Psychotherapy - 45 min [facility]/04/2020 11:45:00 AM EDT - 02/04/2020 11:45:00 AM EDT [facility] ([facility] Attender: Miguel Ángel Almanza 02/04/2020 12:00:00 AM EDT [facility] ([facility] Outpatient Attender: AUDREY CALZADA [facility] Office 01/23 03:30:00 PM EDT [facility] ([facility] Outpatient 02/01/2020 12:34:00 PM EDT [facility] Outpatient Attender: Marielena Vasquez MDReferrer: Diana PICKENS 01/31/2020 10:13:12 PM EDT [facility] Recurring Patient Attender: Alcides ChReferrer: Callie WILLS 01/29/2020 01:38:26 PM EST [facility] Outpatient Attender: Diana PICKENS FP 01/28/2020 10:2 4:00 AM [facility] Outpatient Attender: AUDREY CALZADA [facility] Office 12/27 02:30:00 PM EST [facility] ([facility] Extended Individual Psychotherapy - 45 min Attender: [facility] 01/18/2020 11:45:00 AM EST - 01/18/2020 11:45:00 AM EST [facility] ([facility]) Attender: Xiangpayamil Cami 01/18/2020 12:00:00 AM EST [facility] ([facility]) Outpatient Attender: NELIA PICKENS 01/04/2020 04:21:00 P M [facility] Outpatient Referrer: SHREYAS BOOKER.EVANGELIST 12/30/2019 03:49:13 PM EST [facility] Outpatient Attender: SHREYAS SHIELDS MDReferrer: SHREYAS RAJAN.EVANGELIST 12/23/2019 10:36:27 AM EST - 12/23/2019 11:30:08 AM [facility] Outpatient Attender: Diana PICKENS FP 12/15/2019 01:1 2:01 AM [facility] Outpatient Attender: NELIA ALMARAZ 12/15/2019 01:12:01 A [facility] Outpatient Attender: NELIA PICKENS FP 12/15/2019 01:11:02 A [facility] Outpatient Attender: Diana PICKENS FP 12/15/2019 01:1 1:01 AM [facility] Outpatient Attender: Ignacio WILLS [facility] Media Account Executive s 12/14/2019 07:15:00 AM [facility] ([facility]) Outpatient 12/08/2019 08:30:00 PM [facility] Radiology Imaging Outpatient Attender: Marielena Vasquez MDReferrer: Diana Metzger INTERNATIONAL MARKETING EXECUTIVE 12/06/2019 08:20:14 PM EST [facility] Outpatient Attender: Diana PICKENS FP 12/06/2019 05:4 6:01 PM [facility] Outpatient Attender: NELIA PICKENS FP 12/03/2019 12:13:00 P [facility] Outpatient Attender: NELIA PICKENS FP 12/03/2019 11:41:00 A [facility] Outpatient Attender: NELIA PICKENS FP 12/03/2019 11:40:01 A M [facility] Outpatient Attender: NELIA PICKENS FP 12/02/2019 01:53:00 P [facility] Outpatient Attender: NELIA PICKENS FP 12/02/2019 01:47:01 P [facility] Outpatient Attender: NELIA PICKENS FP 12/02/2019 12:25:00 P [facility] Outpatient Attender: NELIA PICKENS FP 11/27/2019 09:14:00 A [facility] Recurring Patient Attender: Alcides ChReferrer: Callie WILLS 11/27/2019 08:41:53 AM EST [facility] Recurring Patient Attender: Alcides ChReferrer: Callie WILLS 11/27/2019 08:40:25 AM EST [facility] Outpatient Attender: NELIA PICKENS FP 11/20/2019 10:59:02 A M [facility] Outpatient Attender: Diana PICKENS FP 11/20/2019 10:5 8:00 AM [facility] Attender: Sarah Cobos 11/13/2019 12:00:00 AM EST [facility] ([facility]) Extended Individual Psychotherapy - 45 min Attender: Sarah Cobos [facility] 11/12/2019 03:00:00 AM EST - 11/12/2019 03:00:00 AM EST [facility] ([facility]) Functional Status Medications Medication Brand Name Start Date Product Form Dose Route Admi nistrative Instructions Pharmacy Instructions Status Indications Reaction Description Data Source(s) Inject Dexamthosone Phosphate 27135-956-02 12/20/2020 12:00:00 A M EST completed [facility] ([facility] Medication administered onsite Inject Triamcinolone Acetonide 10 ML, [facility] 4392-4957-23 12/20/2020 12:00:00 AM EST completed [facility] ([facility] Medication administered onsite Metoprolol Tartrate 25 MG Oral Tablet me toprolol tartrate (LOPRESSOR) 25 MG tablet metoprolol tartrate (LOPRESSOR) 25 MG tablet 12/07/2020 12:0 0:00 AM EST 25 mg Oral active Chest pain, unspecified typePalp itations Take 1 tablet (25 mg total) by mouth daily Take daily in the evening [facility] Chest pain, unspecified type Palpitations Cyclobenzaprine hydrochloride 5 MG Oral Tablet cyclobenzaprine (FLEXERIL) 5 MG tablet cyclobenzaprine (FLEXERIL) 5 MG tablet 11/04/2020 12:00:00 AM EST aborted TAKE 1 TABLET B Y MOUTH THREE TIMES A DAY NEEDED FOR MUSCLE SPASMS [facility] Prednisone 20 MG Oral Tablet predniSONE (DELTASONE) 20 MG tablet predniSONE (DELTASONE) 20 MG tablet 11/04/2020 12:00:00 AM EST aborted TAKE 3 TABLETS 60MG BY MOUTH DAILY [facility] zonisamide 100 MG Oral Capsule zonisamide (ZONEGRAN) 1 00 MG capsule zonisamide (ZONEGRAN) 100 MG capsule 10/19/2020 12:00:00 AM EST 100 mg Oral active Take 100 mg by mouth [facility] ferrous sulfate 325 MG Delayed Release O ral Tablet ferrous sulfate 325 (65 FE) MG EC tablet ferrous sulfate 325 (65 FE) MG EC tablet 08/16/2020 12 :00:00 AM EDT 1 {tbl} Oral active Take 1 tablet by mouth daily [facility] Ondansetron 4 MG Disintegrating Oral Tab let ondansetron (ZOFRAN-ODT) 4 MG disintegrating tablet ondansetron (ZOFRAN-ODT) 4 MG disintegrating tablet 08/16/2020 12:00:00 AM EDT active DISSOLVE ONE TABLET ON TONGUE TWICE A DAY NEEDED [facility] zonisamide 100 MG Oral Capsule Zonisamide 08/09/2020 12:00:00 AM EDT ORAL active [facility] ([facility] zonisamide 50 MG Oral Capsule zonisamide (ZONEGRAN) 50 MG capsule zonisamide (ZONEGRAN) 50 MG capsule 07/26/2020 12:00:00 AM EDT 50 mg Oral aborted Take 50 mg by mouth 2 (two) times a day [facility] zonisamide 25 MG Oral Capsule zonisamide (ZONEGRAN) 25 MG capsule zonisamide (ZONEGRAN) 25 MG capsule 06/21/2020 12:00:00 AM EDT aborted TAKE 1CAP.BY MOUTH IN P.M. X 1 WEEK 1CAP.2X/DAY X 1 WEEK THEN 1CAP IN A.M. 2 IN P.M. [facility] zonisamide 50 MG Oral Capsule Zonisamide 06/20/2020 12:00:00 AM EDT ORAL completed [facility] ([facility]) zonisamide 25 MG Oral Capsule Zonisamide 06/20/2020 12:00:00 AM EDT ORAL completed [facility] ([facility]) Inject Dexamthosone Phosphate 29935-881-22 06/13/2020 12:00:00 A M EDT completed [facility] ([facility] Medication administered onsite Inject Triamcinolone Acetonide 10 ML, [facility] 1250-9212-17 06/13/2020 12:00:00 AM EDT completed [facility] ([facility] Medication administered onsite Trazodone Hydrochloride 100 MG Oral Tablet trazodone 05/31 12:00:00 AM EDT 100 mg by mouth completed [id number] trazodone by mouth C38 288 05/31/2020 at bedtime 100 mg tablet 14845 [id number] Jose Peters [id number] Psychiatric/Mental Health [facility] ([facility]) Trazodone Hydrochloride 100 MG Oral Tablet TRAZODONE HCL 03/25/2020 12:00:00 AM EDT tablet 60 TAKE 1 & 1/2 TO 2 TABLETS BY MOUTH ONCE DAILY AT BEDTIME TAKE 1 & 1/2 TO 2 TABLETS BY MOUTH ONCE DAILY AT BEDTIME SOLD: 03/28/2020 [facility] Fluoxetine 20 MG Oral Capsule fluoxetine 03/24/2020 12:00:00 AM EDT 20 mg by mouth completed 763491 fluoxetine by mouth X88670 2019 once a day 20 mg capsule 30554 148817 [id number] Isidra Ellston 36 [id number] Psychiatric/Mental Health [facility] ([facility]) Fluoxetine 20 MG Oral Capsule fluoxetine 03/24/2020 12:00:00 AM EDT 20 mg by mouth completed 718924 fluoxetine by mouth M37429 2019 once a day 20 mg capsule 61605 371199 [id number] Isidra Ellston 36 [id number] Psychiatric/Mental Health [facility] ([facility]) Trazodone Hydrochloride 100 MG Oral Tablet trazodone 03/24 12:00:00 AM EDT 100 mg by mouth completed 166746 trazodone by mouth C38 288 03/24/2020 at bedtime 100 mg tablet 28758 209782 [id number] Jose Peters [id number] Psychiatric/Mental Health [facility] ([facility]) 25 mg 03/17/2020 12:00:00 AM EDT tablet [...] D AY NEEDED FOR PAIN SOLD: 03/28/2020 [facility] Mineral Oil 1000 MG/ML Oral Solution Mineral Oil 02/08/2020 12:00:00 AM EDT active [facility] ([facility] ) Inject Triamcinolone Acetonide 10 ML, [facility] [id number] 02/02/2020 12:00:00 AM EDT completed [facility] ([facility] Medication administered onsite Inject Dexamthosone Phosphate 73708-163-39 02/02/2020 12:00:00 A M EDT completed [facility] [...] by mouth 2 (two) times a day [facility] Insurance Providers Payer name Policy type / Coverage type Policy ID Covered democrat ID Covered democrat's relationship to vale Policy Vale Plan Information [facility] [id number] SP [id number] HUMANA GOLD [id number] SP [id number] SP [id number] MEDICARE [id number] SP [id number] MEDICARE COMPLETE-[facility] O [id number] S [id number] HUMANA MEDICARE [id number] Kiana [id number] MEDICAID [id number] Kiana [id number] MEDICARE COMPLETE [id number] SP [id number] MEDICARE COMPLETE [id number] SP [id number] HUMANA MEDICARE [id number] MEDICAID [id number] [facility] [id number] SP [id number] JCPENNEY SP MEDICAID M [id number] S [id number] [facility] O [id number] S [id number] [facility] SP OTHER WORKERS COMPENSATION [id number] SP [id number] Medicaid S [id number] S [id number] [facility] Secure Horizons P [id number] S [id number] [facility] Plan Medicare F [id number] SELF [id number] Medicaid [facility] [place] S D [id number] SELF [id number] Medicaid S [id number] S [id number] [facility] MEDICARE [id number] Kiana [id number] 73 MEDICARE COMPLETE-[facility] O [id number] S [id number] MEDICAID [id number] SP [id number] MEDICAID M [id number] S [id number] Medicare Wrap O [id number] S [id number] [facility] Secure Horizons P [id number] S [id number] [facility] MEDICARE [id number] Medicare Wrap O [id number] S [id number] MEDICARE [id number] Kiana [id number] Medicaid S [id number] S [id number] MEDICAID M [id number] Self [id number] MEDICARE A [id number] Self [id number] A [place] Part B [id number] Self [id number] [place] Primary [id number] Self [id number] Medicaid [facility] Healthcare S D [id number] SELF [id number] Medicaid Medicaid [id number] Self [id number] [facility] Comm Dual Plan Commercial [id number] Self [id number] Medicaid Medicaid [id number] Self [id number] [id number] Comm Dual Plan Commercial [id number] Self [id number] Medicaid Medicaid [id number] Self [id number] [facility] Comm Dual Plan Commercial [id number] Self [id number] Medicaid Medicaid [id number] Self [id number] Uhc Comm Dual Plan Commercial [id number] Self [id number] Medicare S [id number] S [id number] [facility] Secure Horizons P [id number] S [id number] Managed Care - Community Plan [facility] P [id number] S [id number] MEDICARE COMPLETE [id number] SP [id number] Medicare P [id number] S [id number] [facility] MEDICARE PI PI MEDICAID PI PI [facility] Ppo Health Maintenance Organization (HMO) [id number] Self [id number] MEDICARE [id number] Kiana [id number] [place] [id number] Self [id number] [place] Medicare Primary [id number] Self [id number] Medicare P [id number] S [id number] [place] [id number] Self [id number] [place] Medicare Primary [id number] Self [id number] MEDICARE [id number] SP [id number] A MEDICAID [id number] SP [id number] Medicare C [id number] SELF [id number] [id number] DME Jurisdiction A ORIC C [id number] SELF [id number] Medicaid [place] Healthcare S D [id number] SELF [id number] Medicare C [id number] SELF [id number] A MEDICAID [id number] SP [id number] MEDICAID [id number] SP [id number] Medicaid S [id number] S [id number] MEDICARE C [id number] S [id number] [place] [id number] Self [id number] [place]/N[place] Medicare Primary [id number] Self [id number] Medicaid Medicaid [id number] Self [id number] Medicare Medicare Primary [id number] Self [id number] Medicare C [id number] SELF [id number] [place] [id number] Self [id number] [place] Medicare Primary [id number] Self [id number] [place] [id number] Self [id number] [place] Medicare Primary [id number] Self [id number] MEDICAID -RECURRING [id number] 1 [id number] MEDICARE -RECURRING [id number] 18 [id number] Medicaid S [id number] S [id number] MEDICAID [id number] S [id number] [place] [id number] S [id number] MEDICARE - [place] [id number] S [id number] Medicare P [id number] S [id number] A Medicaid S [id number] S [id number] MEDICARE [id number] SP [id number] [place] [id number] Self [id number] [place]/N[place] Medicare Primary [id number] Self [id number] [place]ig[place] B [id number] Self [id number] Medicare [place]/N[place] Medicare Primary [id number] Self [id number] MEDICARE [id number] SP [id number] A [place] Self [place]ig[place] B Self [place] Primary Self MEDICAID [id number] SP [id number] MEDICAID [id number] SP [id number] MEDICAID [id number] SP [id number] MEDICAID [id number] SP [id number] MEDICAID [id number] SP [id number] Medicaid [facility] Healthcare S D [id number] SELF [id number] Medicaid Medigap Part B Self Medicare Medicare Primary Self MEDICAID [id number] SP [id number] MEDICARE [id number] SELF PAY UNAVAILABLE SP UNAVAILA BLE [id number] Problems, Conditions, and Diagnoses Code Display Name Description Problem Type Effective Dates Data Source(s) F33.9 Major depressive disorder, recurrent, un specified Major Depressive Disorder, Recurrent episode, Unspecified Condition 12/22/2020 12:00:00 AM EST [facility] ([facility]) Other synovitis and tenosynovitis, left ankle and foot Other synovitis and tenosynovitis, left ankle and foot Problem 08/22/2020 12:00:00 AM ED T [facility] ([facility] 787.02 Nausea Nausea 08/15/2020 07:31:29 PM ED T [facility] [id number] Pain in limb Pain in limb Problem 06/25/2020 12:0 0:00 AM EDT - 08/22/2020 12:00:00 AM EDT [facility] ([facility] Other synovitis and tenosynovitis, right ankle and foot Other synovitis and tenosynovitis, right ankle and foot Problem 06/25/2020 12:00:0 0 AM EDT - 08/22/2020 12:00:00 AM EDT [facility] ([facility] F41.9 Anxiety disorder, unspecified Unspecified Anxiety Diso rder Condition 05/20/2020 12:00:00 AM EDT [facility] ([facility]) V65.8 Person consulting for explanation of exa mination or test findings Person consulting for explanation of examination or test findings 03/16/2020 03:52:29 PM EDT [facility] [id number] Migraine, unspecified, not intractable, without status migrainosus Migraine, unspecified, not intractable, without status migrainosus 03/16/2020 03:52:29 PM EDT [facility] 784.0 Generalized headache Generalized headache 03/16 03:52:29 PM EDT [facility] [id number] Ganglion of ankle and foot Ganglion of ankle and foot Problem 02/18/2020 12:00:00 AM EDT - 06/25/2020 12:00:00 AM EDT [facility] ([facility] Other synovitis and tenosynovitis, left ankle and foot Other synovitis and tenosynovitis, left ankle and foot Problem 01/23/2020 12:00:00 AM EST - 02/18/2020 12:00:00 AM EDT [facility] ([facility] Other synovitis and tenosynovitis, right ankle and foot Other synovitis and tenosynovitis, right ankle and foot Problem 01/23/2020 12:00:0 0 AM EST - 02/18/2020 12:00:00 AM EDT [facility] ([facility] Z86.711 Personal history of pulmonary embolism P ersonal history of pulmonary embolism Diagnosis 12/07/2020 01:01:38 PM [facility] E66.01 Morbid (severe) obesity due to excess ca lories Morbid (severe) obesity due to excess ca Diagnosis 12/07/2020 01:01:38 PM [facility] R07.9 Chest pain, unspecified Chest pain, unspecified Diagno sis 12/07/2020 01:01:38 PM [facility] R42 Dizziness and giddiness Dizziness and giddiness Diagno sis 12/07/2020 01:01:38 PM [facility] I26.99 Other pulmonary embolism without acute c or pulmonale Other pulmonary embolism without acute c Diagnosis 12/07/2020 01:01:38 PM [facility] J45.20 Mild intermittent asthma, uncomplicated Mild intermittent asthma, uncomplicated Diagnosis 12/07/2020 01:01:38 PM [facility] E78.49 Other hyperlipidemia Other hyperlipidemia Diagnosis 12/07/2020 01:01:38 PM [facility] R00.2 Palpitations Palpitations Diagnosis 12/07/2020 01:01:38 P M EST [facility] I49.3 Ventricular premature depolarization Ventricular premature depolarization Diagnosis 05/24/2020 02:12:31 PM EDT [facility] Surgeries/Procedures Procedure Description Date Indications Data Source(s) Extended Individual Psychotherapy - 45 min 12/22/2020 12:00:00 AM EST - 12/22/2020 12:00:00 AM EST [facility] ([facility]) Extended Individual Psychotherapy - 45 min 12:00:00 AM EST [facility] ([facility]) ARTHROCENTESIS ASPIR&/INJECTION INTERM JT/BURSA 2020 12:00:00 AM EST [facility] ([facility] ECG ROUTINE ECG W/LEAST 12 LDS W/I&R POCT AMB EKG Routine 12/07/2020 1:04 PM EST Palpitations Chest pain, unspecified type 12/07/2020 06:04:00 PM EST [facility] t pain, unspecified typePalpitations [facility] Chest pain, unspecified type Palpitations Extended Individual Psychotherapy - 45 min 12/05/2020 12:00:00 AM EST - 12/05/2020 12:00:00 AM EST [facility] ([facility]) Extended Individual Psychotherapy - 45 min 12:00:00 AM EST [facility] ([facility]) MHC Telemed E/M Lvl 3--Est pt 11/21/2020 12:00:00 AM EST - 11/21/2020 12:00:00 AM EST [facility] ([facility]) Telemed A/O 30" 11/21/2020 12:00:00 AM EST [facility] ([facility]) MHC Telemed E/M Lvl 3--Est pt 11/21/2020 12:00:[address] [facility] ([facility]) Extended Individual Psychotherapy - 45 min 11/01/2020 12:00:00 AM EST - 11/01/2020 12:00:00 AM EST [facility] ([facility]) Extended Individual Psychotherapy - 45 min 0 12:00:00 AM EST [facility] ([facility]) Extended Individual Psychotherapy - 45 min 10/05/2020 12:00:00 AM EST - 10/05/2020 12:00:00 AM EST [facility] ([facility]) Extended Individual Psychotherapy - 45 min 0 12:00:00 AM EST [facility] ([facility]) Extended Individual Psychotherapy - 45 min 09/20/2020 12:00:00 AM EDT - 09/20/2020 12:00:00 AM EDT [facility] ([facility]) Extended Individual Psychotherapy - 45 min 0 12:00:00 AM EDT [facility] ([facility]) MHC Telemed E/M Lvl 3--Est pt 08/29/2020 12:00:00 AM EDT - 08/29/2020 12:00:00 AM EDT [facility] ([facility]) Telemed A/O 30" 08/29/2020 12:00:00 AM EDT [facility] ([facility]) MHC Telemed E/M Lvl 3--Est pt 08/29/2020 12:00:00 AM E DT [facility] ([facility]) Extended Individual Psychotherapy - 45 min 08/26/2020 12:00:00 AM EDT - 08/26/2020 12:00:00 AM EDT [facility] ([facility]) Extended Individual Psychotherapy - 45 min 0 12:00:00 AM EDT [facility] ([facility]) RADEX ANKLE COMPLETE MINIMUM 3 VIEWS 08/19/2020 12:00: 00 AM EDT [facility] ([facility]) RADEX FOOT COMPLETE MINIMUM 3 VIEWS 08/19/2020 12:00:0 0 AM EDT [facility] ([facility] RADEX ANKLE COMPLETE MINIMUM 3 VIEWS 08/19/2020 12:00: 00 AM EDT [facility] ([facility] RADEX FOOT COMPLETE MINIMUM 3 VIEWS 08/19/2020 12:00:0 0 AM EDT [facility] ([facility] ) ELECTROENCEPHALOGRAM W/REC AWAKE&ASLEEP 07/18/2020 12: 00:00 AM EDT [facility] ([facility] ELECTROENCEPHALOGRAM W/REC AWAKE&ASLEEP 07/18/2020 12: 00:00 AM EDT [facility] ([facility] ) THERAPEUTIC PX 1/> AREAS EACH 15 MIN EXERCISES 12:00:00 AM EDT [facility] ([facility] Needle electromyography, each extremity, with related paraspinal areas, when performed, done with nerve conduction, amplitude and latency/velocity study; complete, five or more muscles studied, innervated by three or more nerves or four or more spinal levels (list separately in addition to the code for primary procedure). 07/05/2020 12:00:00 AM EDT MED[facility] T ([facility] ) Needle electromyography, each extremity, with related paraspinal areas, when performed, done with nerve conduction, amplitude and latency/velocity study; complete, five or more muscles studied, innervated by three or more nerves or four or more spinal levels (list separately in addition to the code for primary procedure). 07/05/2020 12:00:00 AM EDT MED[facility] T ([facility] ) Needle Electromyography Non Extremity Done With Nerve Conduc tion 07/05/2020 12:00:00 AM EDT [facility] ([facility] 29135 Nerve conduction studies 13 or more studies NEW 201207/05/2020 12:00:00 AM EDT [facility] ([facility] THERAPEUTIC PX 1/> AREAS EACH 15 MIN EXERCISES 12:00:00 AM EDT [facility] ([facility] ) THERAPEUTIC PX 1/> AREAS EACH 15 MIN EXERCISES 12:00:00 AM EDT [facility] ([facility] ) Magnetic Resonance Angiography Neck W/O Contrast Materials 06/28/2020 12:00:00 AM EDT [facility] ([facility] Magnetic Resonance Angiography Neck W/O Contrast Materials 06/28/2020 12:00:00 AM EDT [facility] ([facility] MRI BRAIN BRAIN STEM W/O CONTRAST MATERIAL 06/28/2020 12:00:00 AM EDT [facility] ([facility] ) MRI BRAIN BRAIN STEM W/O CONTRAST MATERIAL 06/28/2020 12:00:00 AM EDT [facility] ([facility]) APPLICATION MODALITY 1/> AREAS HOT/COLD PACKS 06/27/20 12:00:00 AM EDT [facility] ([facility]) THERAPEUTIC PX 1/> AREAS EACH 15 MIN EXERCISES 12:00:00 AM EDT [facility] ([facility]) THERAPEUTIC PX 1/> AREAS EACH 15 MIN EXERCISES 12:00:00 AM EDT [facility] ([facility]) THERAPEUTIC PX 1/> AREAS EACH 15 MIN EXERCISES 12:00:00 AM EDT [facility] ([facility]) APPLICATION MODALITY 1/> AREAS HOT/COLD PACKS 06/13/20 12:00:00 AM EDT [facility] ([facility]) THERAPEUTIC PX 1/> AREAS EACH 15 MIN EXERCISES 12:00:00 AM EDT [facility] ([facility]) INJECTION 1 TENDON SHEATH/LIGAMENT APONEUROSIS 12:00:00 AM EDT [facility] ([facility] APPLICATION MODALITY 1/> AREAS HOT/COLD PACKS 06/10/20 12:00:00 AM EDT [facility] ([facility]) THERAPEUTIC PX 1/> AREAS EACH 15 MIN EXERCISES 12:00:00 AM EDT [facility] ([facility] Physical Therapy Eval - Low Complexity 06/08/2020 12:0 0:00 AM EDT [facility] ([facility] ) [id number]"Psychotherapy 0 12:00:00 AM EDT - 05/20/2020 12:00:00 AM EDT [facility] ([facility]) [id number]"Psychotherapy 05/20/2020 12:00:00 AM EDT [facility] ([facility]) MRI Lower Extremity Any Joint 05/16/2020 12:00:00 AM E DT [facility] ([facility] MRI Lower Extremity Any Joint 05/16/2020 12:00:00 AM E DT [facility] ([facility] MRI Lower Extremity Any Joint 05/16/2020 12:00:00 AM E DT [facility] ([facility]) MRI Lower Extremity Any Joint 05/16/2020 12:00:00 AM E DT [facility] ([facility]) [id number]"Psychotherapy 0 12:00:00 AM EDT - 05/10/2020 12:00:00 AM EDT [facility] ([facility]) [id number]"Psychotherapy 05/10/2020 12:00:00 AM EDT [facility] ([facility] [facility]) TEMPMHCTelemed 30" Psychotherapy 020 12:00:00 AM EDT - 04/27/2020 12:00:00 AM EDT [facility] ([facility]) TEMPMHCTelemed 30" Psychotherapy 04/27/2020 12:00:00 A M EDT [facility] ([facility]) [id number]"Psychotherapy 0 12:00:00 AM EDT - 04/12/2020 12:00:00 AM EDT [facility] ([facility]) [id number]"Psychotherapy 04/12/2020 12:00:00 AM EDT [facility] ([facility]) TEMPMHCTelemed 30" Psychotherapy 12:00:00 AM EDT - 03/28/2020 12:00:00 AM EDT [facility] ([facility]) TEMPMHCTelemed 30" Psychotherapy 03/28/2020 12:00:00 A M EDT [facility] ([facility]) TEMPMHCTelemed 30" Psychotherapy 020 12:00:00 AM EDT - 03/14/2020 12:00:00 AM EDT [facility] ([facility]) TEMPMHCTelemed 30" Psychotherapy 03/14/2020 12:00:00 A M EDT [facility] ([facility]) Remove Impacted Cerumen 02/23/2020 12:00:00 AM EDT [facility] ([facility]) [id number]"Psychotherapy 0 12:00:00 AM EDT - 02/23/2020 12:00:00 AM EDT [facility] ([facility]) [id number]"Psychotherapy 02/23/2020 12:00:00 AM EDT [facility] ([facility]) Remove Impacted Cerumen 02/08/2020 12:00:00 AM EDT [facility] ([facility], ) Extended Individual Psychotherapy - 45 min 02/04/2020 12:00:00 AM EDT - 02/04/2020 12:00:00 AM EDT [facility] ([facility]) Extended Individual Psychotherapy - 45 min 0 12:00:00 AM EDT [facility] ([facility]) ASPIRATION&/INJECTION GANGLION CYST ANY LOCATION 02/01 12:00:00 AM EDT [facility] ([facility] Strapping Foot Or Ankle 01/19/2020 12:00:00 AM EST [facility] ([facility] Extended Individual Psychotherapy - 45 min 01/18/2020 12:00:00 AM EST - 01/18/2020 12:00:00 AM EST [facility] ([facility]) Extended Individual Psychotherapy - 45 min 0 12:00:00 AM EST [facility] ([facility]) Electrocardiogram Complete 12/14/2019 12:00:00 AM EST [facility] ([facility]) Extended Individual Psychotherapy - 45 min 11/13/2019 12:00:00 AM EST - 11/13/2019 12:00:00 AM EST [facility] ([facility]) Extended Individual Psychotherapy - 45 min 9 12:00:00 AM EST [facility] ([facility]) Results ID Date Data Source [id number] 12/23/2020 06:31:00 PM EST [facility] Name Value Range Interpretation Code Description Data Jennifer rce(s) Supporting Document(s) SARS coronavirus 2 RNA [Presence] in Res piratory specimen by FILIPPO with probe detection NEGATIVE [facility] This lab was ordered by [facility] a nd reported by [facility]. ID Date Data Source [id number] 12/23/2020 05:13:00 PM EST [facility] Name Value Range Interpretation Code Description Data Jennifer rce(s) Supporting Document(s) SARS COVID ANTIGEN NEGATIVE [facility] a [facility] reported by [facility]. ID Date Data Source [id number] 10/31/2020 11:02:00 AM EST [facility] ([facility], ) Name Value Range Interpretation Code Description Data Jennifer rce(s) Supporting Document(s) Laboratory test finding (navigational concept) Laboratory test result [facility] ([facility], ) ID Date Data Source [id number] 08/15/2020 05:48:12 PM EDT [facility] Measurements & CalculationsHeight: 62 inches (5 [...] Diagnosis Recommendation: Major Depression Functional Impairment: Extremely DifficultToday's Follow-Up Action Depression follow-up done. Follow-Up Action: [...] with positive effect. HPI performed by: Diana PICKENS, August 15, 2020 7:23 PMTransitions of Care InboundProblem ReviewProblem List was reviewed and/or updated during this visit.Medication Reconciliation & ReviewMedication List was reviewed and/or updated during this visit, including review of any orjo-ttm-aveccsv medications, herbal therapies, and/or supplements.Allergy ReviewAllergy List [...] is? PoorAssessment & Plan Problems:Added: Nausea (ICD-787.02) (HPZ90-D45.0) Assessment: Instructions: script sent too pharmacy for you today.Assessed:Person consulting for explanation of examinat ion or test findings (ICD-V65.8) (ZPZ33-M87.2) Assessment: Instructions: We have reviewed your lab results with you todayHypertension (ICD-401.9) (ICD10- I10) Assessment: Instructions: Your blood pressure is at goal today. Please continue medications as prescribed. Please continue lifestyle changes to include healthy diet and physical activities. Please try to avoid added sodium in your diet.HYPERLIPIDEMIA (ICD-272.4) (VZQ48-C59.5) Assessment: cholesterol level significantly elevated. Pt states [...] MG ORAL TABLET DISINTEGRATINGZONISAMIDE 100 MGVITAMIN D3 14939 UNIT ORAL CAPSULETYLENOL EXTRA STRENGTH 500 MG ORAL TABLETNYSTATIN 339706 UNIT/GM EXTERNAL OINTMENTIMITREX 25 MG ORAL TABLETTRAZODONE [...] Method: ElectronicAllergies:NSAIDS (Critical)ASPIRIN (Moderate)IBUPROFEN (Moderate)Orders:COMP METABOLIC PANEL [CPT-44374] CBC W/DIFF [CPT-59684] LIPID PANEL [CPT-25972] HgBA1c [CPT-16328] Vitamin D 250H Unspecified [CPT-71147] Adult - Ofc Vst, EST, Level IV [CPT-64377] Follow-Up Return to clinic: 3 months for follow up Clinical Visit Summary CompletedMedications:ONDANSETRON 4 MG ORAL TABLET DISINTEGRATING (ONDANSETRON) one tablet by mouth twice daily as needed #15[Tablet] x 2 Route:ORAL Entered and Authorized by: Diana PICKENS Method used: Electronically to [facility] (retail) [address] [place] [address] Ph: Note to Pharmacy: Route: ORAL; Indications: NAUSEA RxID: [id number] 40 MG ORAL CAPSULE DELAYED RELEASE (OMEPRAZOLE) 1 pill po daily #30[Capsule] x 5 Entered and Authorized by: Diana PICKENS Method used: Electronically to [facility] (retail) [address] [place] [address] Fax: RxID: [id number] SULFATE 325 (65 FE) MG ORAL TABLET DELAYED RELEASE (FERROUS SULFATE) 1 tab by mouth every day #30[Tablet] x 5 Route:ORAL Entered and Authorized by: Diana PICKENS Method used: Electronically to [facility] (retail) [address] [place] [address] Note to Pharmacy: Route: ORAL; RxID: [id number] [id number] 25 MG ORAL TABLET (METOPROLOL TARTRATE) 1 tab by mouth twice per day #60[Tablet] x 5 Route:ORAL Entered and Authorized by: Diana PICKENS Method used: Electronically to [facility] (retail) [address] [place] [address] Fax: Note to Pharmacy: Route: ORAL; RxID: [id number] CALCIUM 40 MG ORAL TABLET (ATORVASTATIN CALCIUM) 1 tab by mouth every night at bedtime #30[Tablet] x 5 Route:ORAL Entered and Authorized by: Diana PICKENS Method used: Electronically to [facility] (retail) [address] [place] [address] Note to Pharmacy: Route: ORAL; RxID: [id number] signed by Diana PICKENS on 08/26/2020 at 11:25 AM Name Value Range Interpretation Code Description Data Jennifer rce(s) Supporting Document(s) ID Date Data Source [id number] 07/25/2020 04:01:08 PM EDT [facility]: 1980Provider: John Lopez: 07/22/2020 History of Present IllnessCHIEF COMPLAINTFollow-up. HISTORY OF PRESENT ILLNESSThe patient is a pleasant 40-year-old utkwq-bphk-ykclnohp female who comes in today for a [...] Form: ASSESSMENTThe patient is a 40 -year-old rwhus-twwc-gujuydvu female who has been seen multiple times [...] should feel free to be seen at [facility] for any additional orthopedic conditions that may [...] rce(s) Supporting Document(s) ID Date Data Source [id number] 07/13/2020 01:46:03 PM EDT [facility] Labs In-House Blood TestsDate/Time Colle cted: July 13, 2020 10:46 AMTest Result Reference Range Normal ValueComments: taken from left ac, tolerated well.Kenna Viipn, July 13, 2020 1:46 PMAssessment & Plan Orders:43364-Nkt Vst-Est Level I [CPT-69249] 62657 - Venipuncture [CPT-18606] Name Value Range Interpretation Code Description Data Jennifer rce(s) Supporting Document(s) ID Date Data Source [id number] 07/13/2020 10:50:00 AM EDT [facility] Name Value Range Interpretation Code Description Data Jennifer rce(s) Supporting Document(s) HCT 41.4 % 36.0-47.0 N [facility] HGB 13.2 g/dL 12.0-15.5 N [facility] MCH 31.9 G/DL pg 32.0-36.5 L [facility] MCHC 29.3 PG % 27.0-33.0 N [facility] PLATELETS 254 10 10*3/mm3 150-450 N [facility] RBC 4.51 10 10*6/mm3 4.00-5.40 N [facility] RDW 13.3 % 11.5-14.5 [facility] WBC TOTAL 4.6 4.0-10.0 [facility] ID Date Data Source [id number] 07/13/2020 10:50:00 AM EDT [facility] Name Value Range Interpretation Code Description Data Jennifer rce(s) Supporting Document(s) BG FASTING 103 mg/dL 70-100 H [facility] T4, FREE 0.89 ng/dL 0.76-1.46 N [facility] TSH 2.330 microintl units/mL 0.358-3.740 [facility] ID Date Data Source [id number] 06/21/2020 12:32:43 PM EDT [facility] PC[facility]: Scott [facility]: 1980Provider: Jovanna [...] document was dictated and electronically signed using LE TOTE software. A reasonable attempt at proof reading has been made to minimize errors. Please call with any questions. Signatures Electronically signed by : Marielena Vasquez NP; Jun 17 2020 4:28PM EST (Author) Electronically signed by : Shaq Lopez M.D.; Jun 21 2020 12:32PM EST Name Value Range Interpretation Code Description Data Jennifer rce(s) Supporting Document(s) ID Date Data Source [id number] 06/08/2020 10:51:00 PM EDT [facility] Name Value Range Interpretation Code Description Data Jennifer rce(s) Supporting Document(s) &PDF [facility] JIIPXd4iVpWSQeVy34/BWUqxTMFqy2MbCFwcMXa8SAonIBLtA6SgaCmgND9BBanSJpqWDvEJKWqcSBId yKE [file] ICAgICAgICAgICAgICAgICAgICAgICAgICAgICAgIC AgICAgICAgICAgICAgICAgICAgICAgICAgICAgICAgICAgICAgICAgICAgICAgDQogICAgICAgICAgIC AgICAgICAgICAgICAgICAgICAgICAgICAgICAgICAgICAgICAgICAgICAgICAgICAgICAgICAgICAgIC AgICAgICAgICAgICAgICAgICAgICAgICAgICAgDQog ICAgICAgICAgICAgICAgICAgICAgICAgICAgICAgICAgICAgICAgICAgICAgICAgICAgICAgICAgICAg ICAgICAgICAgICAgICAgICAgICAgICAgICAgICAgICAgICAgICAgDQogICAgICAgICAgICAgICAgICAg ICAgICAgICAgICAgICAgICAgICAgICAgICAgICAgIC AgICAgICAgICAgICAgICAgICAgICAgICAgICAgICAgICAgICAgICAgICAgICAgICAgDQogICAgICAgIC AgICAgICAgICAgICAgICAgICAgICAgICAgICAgICAgICAgICAgICAgICAgICAgICAgICAgICAgICAgIC AgICAgICAgICAgICAgICAgICAgICAgICAgICAgICAg DQogICAgICAgICAgICAgICAgICAgICAgICAgICAgICAgICAgICAgICAgICAgICAgICAgICAgICAgICAg ICAgICAgICAgICAgICAgICAgICAgICAgICAgICAgICAgICAgICAgICAgDQogICAgICAgICAgICAgICAg ICAgICAgICAgICAgICAgICAgICAgICAgICAgICAgIC AgICAgICAgICAgICAgICAgICAgICAgICAgICAgICAgICAgICAgICAgICAgICAgICAgICAgDQogICAgIC AgICAgICAgICAgICAgICAgICAgICAgICAgICAgICAgICAgICAgICAgICAgICAgICAgICAgICAgICAgIC AgICAgICAgICAgICAgICAgICAgICAgICAgICAgICAg ICAgDQogICAgICAgICAgICAgICAgICAgICAgICAgICAgICAgICAgICAgICAgICAgICAgICAgICAgICAg ICAgICAgICAgICAgICAgICAgICAgICAgICAgICAgICAgICAgICAgICAgICAgDQogICAgICAgICAgICAg ICAgICAgICAgICAgICAgICAgICAgICAgICAgICAgIC TzUZEjFPQmNMHeEJLwOKMyAFEdHHAbLZYdNUQhEDUyDQGeDPIqWFUiYANqEGUmRURoVITcCESyFUc4T2 obMUSpUSGjHZ5eEMy5Om1+WHjUZaBvJDN8jqDbtH4PTP4ht6FpXBwmRVMcc3EfLYq0FJ3EKNUzZNfjYF 4AZLxmws1TUZWlBQMozFXUu9yvGuMnSBC3MEVnPcnt MX0LVAQhX2rfkqFrLTZjXQSCMUpmDLLRVJ7GAaMqM0UvvR03VQLBSs5+BGdmhwUkOdqYHrE8DKAba7Tp WAd3EJ9UOMHgABtdCM5KDHGhxU4bBWkpDQ9TUfHqFRIcQVWVZrGaN29nhNArLCe6U1YgFaNcUVHwHrhz ZXMgPDwvTmFtZXMgWyBdDQogID4+ID4+VLzdMB3TDM tisiTdJEQpUx8LEDJzMPZ5YQGehAAfXzMeIJTDTRazEB7BwITzZMU7sT6cXRfwWBRdQPVtT7bSGiFvhF fkTZ62lBszjrKqpSHkOUd+Hg6PTN2fv9DfLQv1dcAzFDqtMLQ7TLvyDHBhVKOcWNDyZZL8NDC7DPWUQg RtAKDlRWEkKQyzNGLsQJSosu4JPFVnVENpDkMmDzEx ZSGhTQDkCDyrVZHqZIR9AMw8CFXgLQSmYD1ITmPvIDCcSZGmCKJyBYWeNLHata0RIKPkAJNjBtjqDGNu DESaHWDiAHszMGWjMPOwINK5VGRnSLKwEI3PLjXwDIWcNFR3NvslQXLyZMAdtc1OACAoVMBbOfm1DhHl NMChEGOoCRmrDNOyCXS2MYWmWKNqAQSuXD1CFwPbFA CuSYSqGMzwAWZbCOSfqn1AJNLxVVVsBPR1BCSgQULcEDHtHXwhUUUzQHK3IjI9RFOtQRXaKN0OZgNvOZ GuBQR9PbqaTPGuQKKeni1TISNlMAJtCfYgQzXaEDSwSYKaGOxrYFKeVHBcYAetBGDgIZOwEW9KSxDsJA KcMYZ8WUZuFWTiSQAupl7FQFNiOWUtKfLrFbZpASTs IQAoMOmbCLTiNHGwVmEjZHGoPKLkDC0SZgTxAGGnMSKsZFbgEQNzVGGptl1JAGSkWYEmPyY5YIEpARQj ALTzXHnhDKEsUMEaXTJ4YEUcRKDvPW8YDbIeRXYiOLO0BNupWZKxEQCyyp0RWAAoDYWySDG3EvAzTGDp YNNoZMyxINLyFPKwCDElVWVwJEYgIO9DKmLmUTPfUh V0ZRaaWQXqCVBmyf8OUUOhBEKgZZX9EqNvMQGoOSOcOAg8dyNzbJCwKEt5LC1LM7CjhkMiHtgURr6Pm8 10ZOM4IUJcCx5NI3tvXk5tVUIqVHTINx8WEMj7VzG8AbQ9ADH0RmysULJ9LnWeCje2CZL9VtAsQKMjUP Y+UEnhGAovQODyLAjkEMS0JUTqJhVnESS8KRaoNjMy ToPjBv5yPYONNa0+IHtkfDYgsBdmVBLBBjC8JGs6CUerUXURTi2Q ID Date Data Source [id number] 05/25/2020 11:44:21 PM EDT [facility] Name Value Range Interpretation Code Description Data Jennifer rce(s) Supporting Document(s) &PDF [facility] WRZXGp0vMqCERmIu21/DRQazUBAtu3IjXBhvLFu0AJirFIIhU3CtqWpfJY9DQbpQIxtUVsZHFYvoQEKb oRX [file] AgICAgICAgICAgICAgICAgICAgICAgICAgICAgICAgICAgICAgICAgICAgICAgICANCiAgICAgICAgIC AgICAgICAgICAgICAgICAgICAgICAgICAgICAgICAg ICAgICAgICAgICAgICAgICAgICAgICAgICAgICAgICAgICAgICAgICAgICAgICAgICAgICAgICAgICAN CiAgICAgICAgICAgICAgICAgICAgICAgICAgICAgICAgICAgICAgICAgICAgICAgICAgICAgICAgICAg ICAgICAgICAgICAgICAgICAgICAgICAgICAgICAgIC AgICAgICAgICANCiAgICAgICAgICAgICAgICAgICAgICAgICAgICAgICAgICAgICAgICAgICAgICAgIC AgICAgICAgICAgICAgICAgICAgICAgICAgICAgICAgICAgICAgICAgICAgICAgICAgICANCiAgICAgIC AgICAgICAgICAgICAgICAgICAgICAgICAgICAgICAg ICAgICAgICAgICAgICAgICAgICAgICAgICAgICAgICAgICAgICAgICAgICAgICAgICAgICAgICAgICAg ICANCiAgICAgICAgICAgICAgICAgICAgICAgICAgICAgICAgICAgICAgICAgICAgICAgICAgICAgICAg ICAgICAgICAgICAgICAgICAgICAgICAgICAgICAgIC AgICAgICAgICAgICANCiAgICAgICAgICAgICAgICAgICAgICAgICAgICAgICAgICAgICAgICAgICAgIC AgICAgICAgICAgICAgICAgICAgICAgICAgICAgICAgICAgICAgICAgICAgICAgICAgICAgICANCiAgIC AgICAgICAgICAgICAgICAgICAgICAgICAgICAgICAg ICAgICAgICAgICAgICAgICAgICAgICAgICAgICAgICAgICAgICAgICAgICAgICAgICAgICAgICAgICAg ICAgICANCiAgICAgICAgICAgICAgICAgICAgICAgICAgICAgICAgICAgICAgICAgICAgICAgICAgICAg ICAgICAgICAgICAgICAgICAgICAgICAgICAgICAgIC AgICAgICAgICAgICAgICANCiAgICAgICAgICAgICAgICAgICAgICAgICAgICAgICAgICAgICAgICAgIC AgICAgICAgICAgICAgICAgICAgICAgICAgICAgICAgICAgICAgICAgICAgICAgICAgICAgICAgICANCj w/aEVrE5iwcNEjxmU8Q5huWu4UEl2KXX5cv5BrVYWm SQgirqOfFtzFMkOcMYPcScwIDaw3AAqsMQ6AmROaN6ThV8RqNGmmSR3STNWlVLIeiHZbMNYmQZDxOsF8 MIZuVAlmKE8CkDSnTYazPIVwBKEgSfLtENWlBM4GSRDrQ145oiBeAw3WRa8QWzNgXJ0ziv2MIhUmFISm WilKClz7HBcyCY3XgALmL9FdyVSuk9lRZdUfL9ASIC OdDBKaMo0YVDFwZxXsCCXsFFqgXT2mZBRwFUONtJntucO9LE9FDV7bskEiKH7NPcHfAr3jRw1KNaXzG5 SpX7LyOFErOOYZTUdjJC8GAKUaHOG6EIAtXaMaDDKQYzLcB95mMI3AI5Lkn25kEqD4IRCuZyDoWFhtUX 59rDjwhxIjlCUhoZniHY7EGm7+DQplbmRvYmoNCnhy YSLZXdLbDkYZKiAqFEFcIKYzATIgSyK3XpDjLs7SPKZzOULrRDMjAsJtXFNzRNDxCXmtBXFxABo0QMh1 KWBoVELdER6FNfIrQYUsCKz1YXQrWFEpIUToyz0RILZuYTAeILG5IGAhRRJmTNJwMFlqUQReUHRlAuP5 KWJfIODnIM1HXuSgBEKdLMQ6XiMfFNIuMOQuhh5OXH FfFFWkEFQ0NkFfZVAwREXcTIxaKPRrEYR6OUWbZCTwDFRdQU9EEtEcIIYtMPN4ROljCHIrTHCkpu1HWU GnLXHvTnEeUOBpARHmIDYwFLkhFZFbHHU5TDh8BRWbCNYhPZ5UUvLsURErUNgqOOBbJTDdPAEhpd1XOO LkBKViYHG1AzGuDIQqTBCyEBkvZFWhXAS2ZKF3ICFm RTQcSN3OWhLcHMYaLVW1UEXbZQGoSMJgte5RQFXoAFMnVpezLLVeAAXsZZKfODktYRGsPZItGFDfGRZs RDWlEK0KHfFyBKOyQUBbFzGyJCIjYDUxcm2AOHIzIEWrIVHaItTwNDNkLSEuYGpcCVNdUIS5JrG9YFPw TLRsCQ9SYrHfITMxYFH7HACkKVVsAMFgmh7IWCDyJE HwHUYyHkRbASQuEHZkDEmzFKDeMANfOtFxUHNcQTDlEM5UPeVgIDEhYuOnBSayVDAfVVBdht3QQRJrBR CaABU7BfVvOLUsIWTdIEiaYBSbTDY6HgTlUUToZFOzMP5AUxOmOLWzPKZ8NGYmTVUaRJYrpt1XPWAgCQ V1AzU6QiKgKLUbNFBwXUxlPYWbBAl2YqI3IKSjCTTs XY3TZeKpCAAyPKScVMPzGVZeSNGrfi3LARHtENQ2QnX3PfJbEKLuRVVeSHfuYNCpGYg3EBR1DWFcVURc EP6ZBjTqPHFhZPe1BXeyIVQpUGBywn3BbQGztYauey7GDZmRCm8IkKjqFXT1GLhfDe2wdCOeXyIuXAJO Fl9ZpgBtDJOwQCPFCKcfUZXpWXE1QiymDaOfOdF2ZY JfENG4XLJ4JeJlJhUvIfSxYtC8JfJ6XQc3H0EhGZLoMwRzVlC2ZZU1GMetLfX4TuMlDZZ8KWk+IF0gDQ o+Ip6Vp0QjzpH9upThHMn7KKu8Vm0VDGNEH2FFZl== ID Date Data Source [id number] 05/25/2020 10:53:35 AM EDT [facility]: [facility]: 1980Provider: Jovanna [...] Indication: pain/dysfunction.); Status:Complete; Done: 20May2020 Perform:SOS19 (Hand); Due:37Eni1006; Last Updated By:Geraldine Isbell; 05/20/2020 3:18:35 PM;Ordered; For:Pain in wrist; Ordered By:Marielena Vasquez;Laterality: : Left DME (SOS) Supply(s) Diagnostic Diagnostic Status: Complete Done: 20May2020 Ordered;For: Pain in wrist; Ordered By: Marielena Vasquez Performed: Due: [id number]; Last Updated By: Yun Hidalgo; 05/20/2020 3:31:42 [...] document was dictated and electronically signed using LE TOTE software. A reasonable attempt at proof reading has been made to minimize errors. Please call with any questions. Signatures Electronically signed by : Marielena Vasquez NP; May 20 2020 3:34PM EST (Author) Electronically signed by : Shaq Lopez M.D.; May 25 2020 10:53AM EST Name Value Range Interpretation Code Description Data Jennifer rce(s) Supporting Document(s) ID Date Data Source [id number] 03/16/2020 09:31:26 AM EDT [facility] Measurements & CalculationsHeight: 62 inches (5 [...] (ER) or urgent care clinic? Yes - [facility] Emergency room (ER) or urgent care date reported today: 03/04/2020Have you seen another healthcare provider? Yes - Latha calzada you seen a dentist? Yes - aquaIntake [...] Imitrex little effect. Pt [facility] health needs. telephone visit 15 minutesHPI performed by: Diana PICKENS, March 16, 2020 3:25 PMTransitions of Care InboundProblem Rev iewProblem List was reviewed and/or updated during this visit.Medication Reconciliation & ReviewMedication List was reviewed and/or updated during this visit, including review of any vodq-yaw-vqwihfi medications, herbal therapies, and/or supplements.Allergy ReviewAllergy List [...] explanation of examination or test findings (ICD-V65.8) (TRB11-U43.2) Assessment: Telephone visit 15 minutes. Instructions: We have reviewed your lab results with you today. HGA1c 5.9. This indicates prediabetes. Please continue lifestyle changes to include healthy diet and physical activities. Please continue to try to limit sugars and carbohydrates in your diet. CBC unremarkable.Generalized headache (ICD-784.0) (UVK47-D35) Assessment: Pt failed OTCs. Pt verbalized little improvement with imitrex. Referral made to Neurologist for further eval Instructions: Referral made to neurology for you today.Migraine, unspecified, not intractable, without status migrainosus (YJQ50-Y93.909) Assessment: Pt failed OTCs. Pt verbalized little improvement with imitrex. Referral made to Ne urologist for further evalAssessed:Prediabetes (XDP33-A80.03) Assessment: Instructions: Hga1c 5.9. trending up. Please continue lifestyle changes to include healthy diet and physical activities. Please continue to limit sugars and carbohydrates in your diet.Anxiety depression (ICD-300.4) (LOS97-V96.8) Assessment: Instructions: Please continue medication as prescribed. [...] in collaboration with patient and/or familyMedications:VITAMIN D3 22164 UNIT ORAL CAPSULETYLENOL EXTRA STRENGTH 500 MG ORAL TABLETNYSTATIN 203976 UNIT/GM EXTERNAL OINTMENTIMITREX 25 MG ORAL TABLETTRAZODONE [...] Method: ElectronicAllergies:NSAIDS (Critical)ASPIRIN (Moderate)IBUPROFEN (Moderate)Orders:Neurology Consult [CPT- 30746] LIPID PANEL [CPT-96346] COMP METABOLIC PANEL [CPT-49191] TSH [CPT-18343] T-4 free [CPT-17127] IRON [CPT-52335] VITAMIN B-12 [CPT-88811] Folate (Folic Acid Serum) [CPT-89581] CBC W/DIFF [CPT-43495] Telephone E&M 11-20 min Medical Discussion [CPT-92618] Follow-Up Return to clinic: 4-6 weeks for follow up Medications:TYLENOL EXTRA STRENGTH 500 MG ORAL TABLET (ACETAMINOPHEN) take one tablet by mouth three times dily as needed for pain. #60[Tablet] x 1 Route:ORAL Entered and Authorized by: Diana PICKENS Method used: Electronically to [facility] (retail) [address] [place] [address] Note to Pharmacy: Route: ORAL; RxID: [id number] CALCIUM 40 MG ORAL TABLET (ATORVASTATIN CALCIUM) 1 tab by mouth every night at bedtime #30[Tablet] x 2 Route:ORAL Entered and Authorized by: Diana PICKENS Method used: Electronically to [facility] (retail) [address] [place] [address] Fax: Note to Pharmacy: Route: ORAL; RxID: [id number] TARTRATE 25 MG ORAL TABLET (METOPROLOL TARTRATE) 1 tab by mouth twice per day #60[Tablet] x 2 Route:ORAL Entered and Authorized by: Diana PICKENS Method used: Electronically to [facility] (retail) [address] [place] [address] Ph: [phone] Note to Pharmacy: Route: ORAL; RxID: [id number] 10 MG ORAL TABLET (LORATADINE) 1 pill po daily #30[Tablet] x 3 Route:ORAL Entered and Authorized by: Diana PICKENS Method used: Electronically to [facility] (retail) [address] [place] [address] Ph: [phone] Note to Pharmacy: Route: ORAL; RxID: [id number] signed by Diana PICKENS on 03/18/2020 at 2:12 PM Name Value Range Interpretation Code Description Data Jennifer rce(s) Supporting Document(s) ID Date Data Source [id number] 02/15/2020 04:06:12 PM EDT [facility] Labs In-House Blood TestsDate/Time Colle cted: february 15, 2020 4:06 PMTest Result Reference Range Normal ValueComments: [facility] Rufino Bates MA, february 15, 2020 4:06 PMAssessment & Plan Orders:23090-Ryc Vst-Est Level I [CPT-15355] 73988 - Venipuncture [CPT-09489] Name Value Range Interpretation Code Description Data Jennifer rce(s) Supporting Document(s) ID Date Data Source [id number] 02/15/2020 09:00:00 AM EDT [facility] Name Value Range Interpretation Code Description Data Jennifer rce(s) Supporting Document(s) HCT 44.2 % 36.0-47.0 [facility] HGB 14.4 g/dL 12.0-15.5 [facility] MCH 32.6 G/DL pg 32.0-36.5 [facility] MCHC 29.8 PG % 27.0-33.0 [facility] PLATELETS 287 10 10*3/mm3 150-450 [facility] RBC 4.83 10 10*6/mm3 4.00-5.40 [facility] RDW 12.9 % 11.5-14.5 [facility] WBC TOTAL 7.4 4.0-10.0 [facility] ID Date Data Source [id number] 02/15/2020 09:00:00 AM EDT [facility] Name Value Range Interpretation Code Description Data Jennifer rce(s) Supporting Document(s) HGBA1C 5.9 % N [facility] ID Date Data Source [id number] 02/09/2020 11:54:54 AM EDT [facility] PC[facility]: Scott Molina: 1980Provider: Jovanna Vasquez: 01/29/2020 History of Present [...] document was dictated and electronically signed using [employer] Speaking software. A reasonable attempt at proof reading has been made to minimize errors. Please call with any questions. Signatures Ella ctronically signed by : Marielena Vasquez NP; Jan 29 2020 2:06PM EST (Author) Electronically signed by : Shaq Lopez M.D.; Jan 31 2020 10:13PM EST Electronically signed by : Marielena Vasquez NP; Feb 09 2020 11:53AM EST (Author) Electronically signed by : Shaq Lopez M.D.; Feb 09 2020 11:54AM EST Name Value Range Interpretation Code Description Data Jennifer rce(s) Supporting Document(s) ID Date Data Source [id number] 12/30/2019 10:40:27 PM EST [facility] Name Value Range Interpretation Code Description Data Jennifer rce(s) Supporting Document(s) &PDF [facility] UHAJOe8kMxACElXe16/AHFbtCRKph5WyYCwcPMp0JUtnWNDgR8ZbgDprPI8USmdGCmyHZcNTACioZEUe oRX [file] ICAgICAgICAgICAgICAgICAgICAgICAgICAgICAgICAgICAgICAgICAgICAgICAgICAgICAgICAgICAg CMUzUBYfTLShKQFrVVVhTRZwDGYqITQjHZ0ESNQlJVCkUHMiACLoLCHgEBMuSXNlQHOnYSYzEYPjDPYj ICAgICAgICAgICAgICAgICAgICAgICAgICAgICAgIC AsERZfTOEhQQXtYFVqPADtRCDzNRBnKTIoHBQzBXCyJWGwPD6EJJXxJPKaZWTyCEZgXHNvLDMnRKEjOD AgICAgICAgICAgICAgICAgICAgICAgICAgICAgICAgICAgICAgICAgICAgICAgICAgICAgICAgICAgIC WoYGPbIJZzUOOaUXTbHVHtKN5ZNYGtSOIzOXEfUSJg ICAgICAgICAgICAgICAgICAgICAgICAgICAgICAgICAgICAgICAgICAgICAgICAgICAgICAgICAgICAg ORDeTTSkYOQjKTKtEAMsUEZtTJNwSHAjWVAkVG7OANHdISRaMTFvCCLlCFMiILHwZUPjXGIuGMZvEHDy ICAgICAgICAgICAgICAgICAgICAgICAgICAgICAgIC XzNJNnIPAbYKUgPTEhRGIbWXBpBRNzPSPdYXPoFDCuRKDmVZBwON3IGBYcAIMlNLPsKQKpHYMvYYMwAB AgICAgICAgICAgICAgICAgICAgICAgICAgICAgICAgICAgICAgICAgICAgICAgICAgICAgICAgICAgIC WlAVPpPPRaAVYxCSAyEHOqKZChKJ7SQIDnDTPqPXIb ICAgICAgICAgICAgICAgICAgICAgICAgICAgICAgICAgICAgICAgICAgICAgICAgICAgICAgICAgICAg TDSxYQMmGSTuHBGcCSGyFEAqEFYvFZSsAAMkYKXfEN5KMHVkMTChFFIlVBTbKCQvFUYuCCZzMKOkHTVn ICAgICAgICAgICAgICAgICAgICAgICAgICAgICAgIC PhHNGuIEPqHULrUXElADRaSZFiNQNhCXZlDULtVIWbTDEfMAZhAXGxXZ3JKLGbVABjAYFvOVDaUTKkBG AgICAgICAgICAgICAgICAgICAgICAgICAgICAgICAgICAgICAgICAgICAgICAgICAgICAgICAgICAgIC ZyDYJgRHPeXQLkIMFbHOQaHURgDNZuIL3FXVXyRBGn ICAgICAgICAgICAgICAgICAgICAgICAgICAgICAgICAgICAgICAgICAgICAgICAgICAgICAgICAgICAg KQHqMEOaHZUcHCWqAYTgSHOgVDMyNNXjXGUsQTFyJRRaML4JJO02dJYbr0A8OXCoJD5fvsh/Ed4BJPpg pxNcuNXtJA5QFdWhEU8zfn1QMuVdXC7kvn9KONqGWo MoH6K5qBTrYVNmPYLLLbYnB92pQJwmJl42ZVajKGPfVpOiJBg6Ke6RIgClH0mcLFCxZsR6LVNiVnHhDB onRO3Lo4OqfROqFDx+Cx8NGU5cc2PhEGjxKBLgXX3pqw1FRAlALxKkQ3R3cLJfG0O8EMihWz5MNEDyJK SzFsRiOUYGUPrmEF9MNC4nluQ6PT8HrYAxDPPcILNp vULcPFq6X04maJXxONofJM5KTLE+Saman+Dy1SRDNfYKQtIQHiTbZlSWAEIzAvW23smZHrODBvAKKvJTRf Xw2XRJYxZ3RnheIswRchlyJbWHUyCETPAE6PCAgigfWieEUykWsaRW91nAqpKH9PMe3TUdKnHQ3hkq7O bFTnGe3KSZSqCZ1LULKyFLZiODUsEEP7QWDhXcHjKF mbBTTtABFlEVP8EXXhIZJfWO4CYdFrTVGeCgGjCHbwYJFjAKXgwb7OPIXxOYWtAgt5EwSxEZZqKDBwKB zyMCTjBLMaLHyvBNLpSNZmYC5KCcCkMOIeFKS8RVblYDMxJMLroa6AXMIuPCJuVzOdRMMtTYQtDPNoKL nhQAHoALInYDd3GIWoFOIzZF7JQmJiOWXbAXJ8FCXo QVVzJZCegq3RUSLlQOHoMam6IYLbWIExXMNyDFwvOSQqAXZ4ZEH9CGQoUTEuGR6SCnPrXHEmGGOhShYo UJLhHTLuuj7KQIJaXVOvNROwQuEkFBDbSUZvVWooWWBuKBFsLBZ9DEYaXXYaGR4MDuIwAWMeRQW3YfDq ZGFdEVXego1ZYRKqYUFbQJK3OLAeUKOgQMZdZSwaCH VnGOFzRTB5MWHpNKPcWR1PKnHpRQRrYEPqYoEwHVKaJRBwsa8EAQXlWEOkIqZsSoGdZIZtJAMrJQlvJI ZpOBKeSsNhPSOaHQKoVG8GWxJxTXNmCTFtFwDvIIPiGTSdtj5PGQFhYBDzLMZ0NRJbFUMxLCEbNElfCQ WuBCBzSGa6AEDrNBHlYT2SCaFqDWLqStF3DpRlLSUk XCYmad7ZNEInUORdYhk2QUVuINUuBGNhXIy3dxGexUUfIAc1AV3FJ6WbqkXkFfGHZt6Os318PBV9QUNo Ts0ZK9rxFe1dCCOhJFIFFb7YZWt9A2X6YmI7BwJkCCynTPL4R6NfNHOoZRS1VnfoAOqgOgT+IDxjZTgy LvhqPJS4INOeEzfpTXEuAYChHpgcArHsXHTzQY1i XSANCj4+UEnriFVvdVzbKRRKWqCnBBW4URepFHBDBv2C ID Date Data Source [id number] 12/02/2019 02:01:13 PM [facility] Measurements & CalculationsHeight: 62 inches (5 [...] Yes - strained fingerHave you seen another [facility]? Yes - majak, entHave [...] refills today. 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 HPI performed by: Diana PICKENS, December 02, 2019 2:51 PMTransitions of Care InboundProblem ReviewProblem List was reviewed and/or up dated during this visit.Medication Reconciliation & ReviewMedication List was reviewed and/or updated during this visit, including review of any wrsz-ggh-udekgzb medications, herbal therapies, and/or supplements.Allergy ReviewAllergy List [...] health is? Very GoodAssessment & Plan Problems:Assessed:Prediabetes (QBI30-E34.03) Assessment: Instructions: Hga1c 5.7. this is still indicating prediabetes. Please continue lifestyle.Hypertension (ICD-401.9) (LKP90-N39) Assessment: Instructions: Your blood pressure is at goal today. Please continue medications as prescribed. Please continue lifestyle changes to include healthy diet and physical activities. Please try to avoid added sodium in your diet.Health Screening (ICD-V70.0) (LQE07-R05.9) Assessment: Instructions: We have reviewed your lab [...] Please try to avoid processed foods.HYPERLIPIDEMIA (ICD-272.4) (BRC71-R97.5) Assessment: Instructions: Please continue medications as prescribed. Please continue lifestyle changes to include healthy diet and physical activities. Please try to limit sugars, carbohydrates, and fats in your diet. Please try to avoid processed foods.Anxiety depression (ICD-300.4) (XZD03-Q77.8) Assessment: MIESHA 7 and PHQ 9 scores [...] [facility] Plan developed in collaboration with patient and/or familyMedications:VITAMIN D3 71166 UNIT ORAL CAPSULETYLENOL EXTRA STRENGTH 500 MG ORAL TABLETNYSTATIN 541395 UNIT/GM EXTERNAL OINTMENTIMITREX 25 MG ORAL TABLETTRAZODONE [...] Method: ElectronicAllergies:NSAIDS (Critical)ASPIRIN (Moderate)IBUPROFEN (Moderate)Orders:COMP METABOLIC PANEL [CPT-12146] CBC W/DIFF [CPT-44766] HgBA1c [CPT-18466] LIPID PANEL [CPT-90788] Vitamin D 250H Unspecified [CPT-59599] Adult - Ofc Vst, EST, Level IV [CPT-70533] Follow-Up Return to clinic: 3 months for follow up Clinical Visit Summary CompletedMedications:PROAIR HFA 108 (90 Base) MCG/ACT INHALATION AEROSOL SOLUTION (ALBUTEROL SULFATE) 2 puffs every 6 hrs, prn #1[Inhalation] x 2 Entered and Authorized by: Diana PICKENS Method used: Electronically to [facility] (retail) [address] [place] [address] Fax: RxID: [id number] 40 MG ORAL CAPSULE DELAYED RELEASE (OMEPRAZOLE) 1 pill po daily #30[Capsule] x 2 Entered and Authorized by: Diana PICKENS Method used: Electronically to [facility] (retail) [address] [place] [address] RxID: [id number] 10 MG ORAL TABLET (LORATADINE) 1 pill po daily #30[Tablet] x 3 Route:ORAL Entered and Authorized by: Diana PICKENS Method used: Electronically to [facility] (retail) [address] [place] [address] Ph: Note to Pharmacy: Route: ORAL; RxID: [id number] 100-25 MCG/INH INHALATION AEROSOL POWDER BREATH ACTIVATED (FLUTICASONE FUROATE-VILANTEROL) 1 puff by mouth daily #1[Inhaler] x 2 Route:INHALATION Entered and Authorized by: Diana PICKENS Method used: Electronically to [facility] (retail) [address] [place] [address] Note to Pharmacy: Route: INH; RxID: [id number] TARTRATE 25 MG ORAL TABLET (METOPROLOL TARTRATE) 1 tab by mouth twice per day #60[Tablet] x 2 Route:ORAL Entered and Authorized by: Diana PICKENS Method used: Electronically to [facility] (retail) [address] [place] [address] Fax: Note to Pharmacy: Route: ORAL; RxID: [id number] CALCIUM 40 MG ORAL TABLET (ATORVASTATIN CALCIUM) 1 tab by mouth every night at bedtime #30[Tablet] x 2 Route:ORAL Entered and Authorized by: Diana PICKENS Method used: Electronically to [facility] (retail) [address] [place] [address] Note to Pharmacy: Route: ORAL; RxID: [id number] Administered/Entered:Vaccination Group: H1N1 InfluenzaSeries: 1 NOT GIVENVaccination: Influenza A (H1N1) Monoval PF Intramuscular SuspensionReason Not Given: Patient decisionEntered Date: 12/02/2019 12:00 AMComments: pt refusedEntered by: Ángela Bravo MA Name Value Range Interpretation Code Description Data Jennifer rce(s) Supporting Document(s) ID Date Data Source [id number] 12/01/2019 08:47:00 AM EST [facility] Name Value Range Interpretation Code Description Data Jennifer rce(s) Supporting Document(s) HGBA1C 5.7 % N [facility] ID Date Data Source [id number] 12/01/2019 08:47:00 AM EST [facility] Name Value Range Interpretation Code Description Data Jennifer rce(s) Supporting Document(s) BG FASTING 100 mg/dL 70-100 N [facility] VIT D25 TOT 22.2 ng/mL 30.0-100.0 L [facility] ID Date Data Source [id number] 12/01/2019 08:47:00 AM EST [facility] Name Value Range Interpretation Code Description Data Jennifer rce(s) Supporting Document(s) HCT 41.7 % 36.0-47.0 N [facility] HGB 13.5 g/dL 12.0-15.5 N [facility] MCH 32.4 G/DL pg 32.0-36.5 N [facility] MCHC 29.7 PG % 27.0-33.0 N [facility] PLATELETS 270 10 10*3/mm3 150-450 N [facility] RBC 4.55 10 10*6/mm3 4.00-5.40 N [facility] RDW 12.8 % 11.5-14.5 N [facility] WBC TOTAL 6.3 4.0-10.0 N [facility] ID Date Data Source [id number] 12/06/2019 08:20:14 PM EST [facility], PCName: Scott CruzB: 1980Provider: Eunice, MasoudLise: 11/27/2019 History of Present IllnessShe is here [...] document was dictated and electronically signed using [employer] software. A reasonable at tempt at proof [...] leted Unknown if ever smoked [facility] ([facility]) Alcohol intake 12/07/2020 12:00:00 AM EST Yes completed [facility] Smoking 12/07/2020 12:00:00 AM EST Never smoker completed Never s moker [facility] Smoking 12/05/2020 12:00:00 AM EST Unknown if ever smoked comp leted Unknown if ever smoked [facility] ([facility]) Smoking 11/21/2020 12:00:00 AM EST Unknown if ever smoked comp leted Unknown if ever smoked [facility] ([facility]) Smoking 11/01/2020 12:00:00 AM EST Unknown if ever smoked comp leted Unknown if ever smoked [facility] ([facility]) Smoking 10/05/2020 12:00:00 AM EST Unknown if ever smoked comp leted Unknown if ever smoked [facility] ([facility]) Smoking 09/20/2020 12:00:00 AM EDT Unknown if ever smoked comp leted Unknown if ever smoked [facility] ([facility]) Smoking 08/29/2020 12:00:00 AM EDT Unknown if ever smoked comp leted Unknown if ever smoked [facility] ([facility]) Smoking 08/26/2020 12:00:00 AM EDT Unknown if ever smoked comp leted Unknown if ever smoked [facility] ([facility]) Smoking 05/20/2020 12:00:00 AM EDT Unknown if ever smoked comp leted Unknown if ever smoked [facility] ([facility]) Smoking 05/10/2020 12:00:00 AM EDT Unknown if ever smoked comp leted Unknown if ever smoked [facility] ([facility]) Smoking 04/27/2020 12:00:00 AM EDT Unknown if ever smoked comp leted Unknown if ever smoked [facility] ([facility]) Smoking 04/12/2020 12:00:00 AM EDT Unknown if ever smoked comp leted Unknown if ever smoked [facility] ([facility]) Smoking 03/28/2020 12:00:00 AM EDT Unknown if ever smoked comp leted Unknown if ever smoked [facility] ([facility]) Smoking 03/14/2020 12:00:00 AM EDT Unknown if ever smoked comp leted Unknown if ever smoked [facility] ([facility]) Smoking 02/23/2020 12:00:00 AM EDT Unknown if ever smoked comp leted Unknown if ever smoked [facility] ([facility]) Smoking 02/04/2020 12:00:00 AM EDT Unknown if ever smoked comp leted Unknown if ever smoked [facility] ([facility]) Smoking 01/18/2020 12:00:00 AM EST Unknown if ever smoked comp leted Unknown if ever smoked [facility] ([facility]) Smoking 11/13/2019 12:00:00 AM EST Unknown if ever smoked comp leted Unknown if ever smoked [facility] ([facility]) Vital Signs ID Date Data Source UNK Name Value Range Interpretation Code Description Data Source(s) Diastolic blood pressure 80 mm[Hg] 80 mm[Hg] [facility] Systolic blood pressure 124 mm[Hg] 124 mm[Hg] [facility] Oxygen saturation in Arterial blood by Pulse oximetry 97 % 97 % [facility] Body mass index (BMI) [Ratio] 40.97 kg/m2 40.97 kg/m2 [facility] Body weight 101.606 kg 101.606 kg [facility] Body height 157.5 cm 157.5 cm [facility] Heart rate 60 /min 60 /min [facility] Diastolic blood pressure 0 mm[Hg] Normal (applies to non-numeric results) 0 mm[Hg] [facility] Systolic blood pressure 0 mm[Hg] Normal (applies t o non-numeric results) 0 mm[Hg] [facility] ([facility]) Body mass index (BMI) [Ratio] 0.00 kg/m2 No rmal (applies to non-numeric results) 0.00 kg/m2 [facility] Body weight Measured 0.00 lbs Normal (applies to n on-numeric results) 0.00 lbs [facility] ([facility]) Body height 0.00 in Normal (applies to non-numeric resu lts) 0.00 in [facility] ([facility]) Body surface area Derived from formula 2.01 m2 2.01 m2 [facility] ([facility]) Body weight 101.606 kg 101.606 kg [facility] ([facility]) [place] body weight 110 [lb_av] 110 [lb_av] [facility] ([facility]) Body mass index (BMI) [Ratio] 41.0 kg/m2 41.0 k g/m2 [facility] ([facility]) Body weight 224.00 [lb_av] 224.00 [lb_av] [facility] ([facility]) Body height 62 [in_i] 62 [in_i] [facility] ([facility]) 5'2" Body surface area Derived from formula 2.01 m2 2.01 m2 [facility] ([facility]) Body weight 101.606 kg 101.606 kg [facility] ([facility]) [place] body weight 110 [lb_av] 110 [lb_av] [facility] Body mass index (BMI) [Ratio] 41.0 kg/m2 41.0 k g/m2 [facility] ([facility]) Body weight 224.00 [lb_av] 224.00 [lb_av] [facility]) Body height 62 [in_i] 62 [in_i] [facility] ([facility]) 5'2" Diastolic blood pressure 0 mm[Hg] Normal (applies to non-numeric results) 0 mm[Hg] [facility] ([facility]) Systolic blood pressure 0 mm[Hg] Normal (applies t o non-numeric results) 0 mm[Hg] [facility] ([facility]) Body mass index (BMI) [Ratio] 0.00 kg/m2 No rmal (applies to non-numeric results) 0.00 kg/m2 [facility] ([facility]) Body weight Measured 0.00 lbs Normal (applies to n on-numeric results) 0.00 lbs [facility] ([facility]) Body height 0.00 in Normal (applies to non-numeric resu lts) 0.00 in [facility] ([facility]) Respiratory rate 16 /min 16 /min [facility] ( [facility] ) Heart rate 68 /min 68 /min [facility] ([facility] ) Diastolic blood pressure 80 mm[Hg] 80 mm[Hg] [facility] Systolic blood pressure 126 mm[Hg] 126 mm[Hg] [facility] ([facility] ) Body height 62 [in_i] 62 [in_i] [facility] ([facility] ) 5'2" Body temperature 97.0 [degF] 97.0 [degF] [facility] ([facility]) Body surface area Derived from formula 1.97 m2 1.97 m2 [facility] ([facility]) Body weight 97.070 kg 97.070 kg [facility] ([facility]) [place] body weight 110 [lb_av] 110 [lb_av] [facility] ([facility]) Body mass index (BMI) [Ratio] 39.1 kg/m2 39.1 k g/m2 [facility] ([facility]) Body weight 214.00 [lb_av] 214.00 [lb_av] [facility] ([facility]) Body height 62 [in_i] 62 [in_i] [facility] ([facility]) 5'2" Body weight 97.070 kg 97.070 kg [facility] ([facility]) Body mass index (BMI) [Ratio] 39.1 kg/m2 39.1 k g/m2 [facility] ([facility]) Body weight 214.00 [lb_av] 214.00 [lb_av] [facility] ([facility]) Body height 62 [in_i] 62 [in_i] [facility] ([facility]) 5'2" Body weight 97.070 kg 97.070 kg [facility] ([facility]) Body mass index (BMI) [Ratio] 39.1 kg/m2 39.1 k g/m2 [facility] ([facility]) Body weight 214.00 [lb_av] 214.00 [lb_av] [facility] ([facility]) Body height 62 [in_i] 62 [in_i] [facility] 5'2" Body surface area 2.00 m2 2.00 m2 [facility] ([facility]) Body mass index (BMI) [Ratio] 40.8 kg/m2 40.8 k g/m2 [facility] ([facility]) Body height 62 [in_i] 62 [in_i] [facility] ([facility] 5'2" Body weight 223.00 [lb_av] 223.00 [lb_av] [facility] ([facility]) Heart rate 65 /min 65 /min [facility] ([facility]) Diastolic blood pressure 78 mm[Hg] 78 mm[Hg] [facility] ([facility]) Systolic blood pressure 104 mm[Hg] 104 mm[Hg] [facility] ([facility]) Patient Treatment Plan of Care Planned Activity Planned Date Details Description Data Source (s) Metoprolol Tartrate 25 MG Oral Tablet 12/07/2020 12:00:00 AM EST [facility] Prednisone 20 MG Oral Tablet 11/04/2020 12:00:00 AM EST [facility] Cyclobenzaprine hydrochloride 5 MG Oral Tablet 11/04/2020 12:00:00 AM EST [facility] zonisamide 100 MG Oral Capsule 10/19/2020 12:00:00 AM EST [facility] Ondansetron 4 MG Disintegrating Oral Tablet 08/16/2020 12:00:00 AM EDT [facility] ferrous sulfate 325 MG Delayed Release Oral Tablet 08/16/2020 12 :00:00 AM EDT [facility] zonisamide 50 MG Oral Capsule 07/26/2020 12:00:00 AM EDT [facility] zonisamide 25 MG Oral Capsule 06/21/2020 12:00:00 AM EDT [facility] Metoprolol Tartrate 25 MG Oral Tablet [facility]
== END 2021-01-10 00:55 | disposition home or self-care (01) ==
LOC: M ED 19:55
DX: S39.012A Strain of muscle, fascia and tendon of lower back, initial encounter (principal); S93.402A Sprain of unspecified ligament of left ankle, initial encounter; S63.502A Unspecified sprain of left wrist, initial encounter; X50.1XXA Overexertion from prolonged static or awkward postures, initial encounter; Y92.9 Unspecified place or not applicable; Y93.9 Activity, unspecified; Y99.9 Unspecified external cause status; M77.32 Calcaneal spur, left foot; Z79.899 Other long term (current) drug therapy; Z88.6 Allergy status to analgesic agent; Z88.8 Allergy status to other drugs, medicaments and biological substances; Z91.02 Food additives allergy status

== ENCOUNTER 2021-02-06 15:16 | Emergency (ER) | payer OTHER, MEDICAID ==
[~2021-02-06] VITALS: Ht 157.5 cm; Wt 97.7 kg
--- NOTE | 2021-02-06 15:49 | ED PDOC ---
Post-Departure Follow-Up RHIO accessed. Patient informed Carlos Reardon M.D. Feb 06, 2021 15:49
[2021-02-06 16:12] VITALS: BP 120/81
== END 2021-02-06 16:30 | disposition home or self-care (01) ==
LOC: M ED 15:16 → EDBD 15:16 → M ED 16:30
DX: J45.909 Unspecified asthma, uncomplicated (principal); Z79.899 Other long term (current) drug therapy; Z88.6 Allergy status to analgesic agent; Z88.8 Allergy status to other drugs, medicaments and biological substances; Z91.02 Food additives allergy status

== ENCOUNTER → 2021-02-08 | Outpatient (REF) | payer OTHER, MEDICAID ==
[2021-02-08 12:38] LABS: ALBUMIN 3.7 GM/DL (3.2-5.2); ALT/SGPT 16 U/L (12-78); BILIRUBIN,TOTAL 0.5 MG/DL (0.2-1.0); BLOOD UREA NITROGEN 13 MG/DL (7-18); CALCIUM LEVEL 9.4 MG/DL (8.5-10.1); CARBON DIOXIDE LEVEL 29 MEQ/L (21-32); CHLORIDE LEVEL 106 MEQ/L (98-107); CHOLESTEROL LEVEL 264 MG/DL (<200); CHOLESTEROL RISK RATIO 4.888 (<5); CREATININE FOR GFR 0.61 MG/DL (0.55-1.30); GLOMERULAR FILTRATION RATE > 60.0 (>60); GLUCOSE, FASTING 85 MG/DL (70-100); HDL CHOLESTEROL 54 MG/DL (>40); LDL CHOLESTEROL 187 MG/DL (<100); NON-HDL-C 210 MG/DL; SODIUM LEVEL 140 MEQ/L (136-145); TOTAL PROTEIN 7.2 GM/DL (6.4-8.2); TRIGLYCERIDES LEVEL 114 MG/DL (<150)
== END ==
LOC: M LAB REF 11:33
PROVIDERS: ATTEND Family Medicine Addiction Medicine
DX: E55.9 Vitamin D deficiency, unspecified (principal); I10 Essential (primary) hypertension

== ENCOUNTER → 2021-03-26 | Outpatient (CLI) | payer OTHER, MEDICAID ==
[~2021-03-26] MED LIST changes: -FERR325T3; +TRAZ-257 PO
== END ==
LOC: M LABSMTC 08:53
PROVIDERS: ATTEND Anesthesiology
DX: Z01.812 Encounter for preprocedural laboratory examination (principal); Z11.52 Encounter for screening for COVID-19

== ENCOUNTER 2021-03-31 10:51 | Day surgery (SDC) | payer OTHER, MEDICAID ==
[~2021-03-31] VITALS: Ht 157.5 cm; Wt 107.0 kg
[~2021-03-31 10:51] MED LIST changes: +NS 1,000 ML IV ONE
[2021-03-31] MEDS ORDERED: fentaNYL 100 MCG/2 ML INJECTION (J3010) As Ordered ONE (12:33)
[2021-03-31] MEDS ORDERED: propofoL 200 MG/20 ML VIAL As Ordered ONE (12:33)
[2021-03-31] MEDS ORDERED: LIDOCAINE 2% 100MG/5ML SDV (FOR ANES.) As Ordered ONE (12:34)
--- NOTE | 2021-03-31 13:42 | ROOR ---
Patient Name: Trish Carvajal Procedure Date: 03/31/2021 1:29 PM Date of : 1980 Age: 40 Room: [facility] Gender: Female Note Status: Finalized Procedure: Upper GI endoscopy Indications: Oropharyngeal phase dysphagia, Esophageal dysphagia Providers: Pepe MCGOVERN MD Referring MD: Diana Metzger NP Requesting Provider: Medicines: Monitored Anesthesia Care Complications: No immediate complications. Procedure: Pre-Anesthesia Assessment: - The heart rate, respiratory rate, oxygen saturations, blood pressure, adequacy of pulmonary ventilation, and response to care were monitored throughout the procedure. The Endoscope was introduced through the mouth, and advanced to the second part of duodenum. The upper GI endoscopy was accomplished without difficulty. The patient tolerated the procedure well. Findings: The esophagus was normal. The stomach was normal. The examined duodenum was normal. No endoscopic abnormality was evident in the esophagus to explain the patient's complaint of dysphagia. It was decided, however, to proceed with dilation of the entire esophagus. The scope was withdrawn. Dilation was performed with a Zamora dilator with no resistance at 54 Fr. The dilation site was examined following endoscope reinsertion and showed no change. Impression: - Normal esophagus. - Normal stomach. - Normal examined duodenum. - No endoscopic esophageal abnormality to explain patient's dysphagia. Esophagus dilated. Dilated. - No specimens collected. Recommendation: - Observe patient's clinical course. - Continue present medications. Procedure Code(s): --- Professional --- 28405, Esophagogastroduodenoscopy, flexible, transoral; diagnostic, including collection of specimen(s) by brushing or washing, when performed (separate procedure) 55315, Dilation of esophagus, by unguided sound or bougie, single or multiple passes Diagnosis Code(s): --- Professional --- R13.12, Dysphagia, oropharyngeal phase R13.14, Dysphagia, pharyngoesophageal phase CPT copyright 2019 [employer]. All rights reserved. The codes documented in this report are preliminary and upon death surveys coder review may be revised to meet current compliance requirements. Pepe Mcgovern MD Pepe MCGOVERN MD 03/31/2021 1:41:56 PM Electronically signed by Pepe MCGOVERN MD Number of Addenda: 0 Note Initiated On: 03/31/2021 1:29 PM Estimated Blood Loss: Estimated blood loss: none.
[2021-03-31 14:10] VITALS: BP 156/93
== END 2021-03-31 14:10 | disposition home or self-care (01) ==
LOC: M OPP 10:51
PROVIDERS: ATTEND Internal Medicine Gastroenterology
DX: R13.12 Dysphagia, oropharyngeal phase (principal); R13.14 Dysphagia, pharyngoesophageal phase; K21.9 Gastro-esophageal reflux disease without esophagitis; R12 Heartburn; Z79.899 Other long term (current) drug therapy; Z88.8 Allergy status to other drugs, medicaments and biological substances; Z91.048 Other nonmedicinal substance allergy status; Z86.711 Personal history of pulmonary embolism
CPT/HCPCS: 43235; 43450; J3010

== ENCOUNTER 2021-05-04 17:32 | Emergency (ER) | payer OTHER, MEDICAID ==
[~2021-05-04] VITALS: Ht 157.5 cm; Wt 105.2 kg
[~2021-05-04 17:32] MED LIST changes: -NS 1,000 ML IV ONE
--- NOTE | 2021-05-04 18:01 | REP ---
INDICATION: sob. COMPARISON: 12/23/2020 TECHNIQUE: Portable FINDINGS: The technique utilized in obtaining the radiograph has magnified the cardiac silhouette and attenuated the interstitial markings. There is cardiomegaly accentuated by technique. The lung aguirre are clear and stable. No acute patchy parenchymal opacities or pleural effusions have developed. There is no significant change in the imaged osseous structures. IMPRESSION: Cardiomegaly without evidence of acute cardiopulmonary disease. <Electronically signed by Reynaldo Peters > 05/04/21 [id number]
[2021-05-04] MEDS: IPRATROPIUM 0.5MG/ALBUTEROL 2.5MG INH SOL UD 3ML (DUONEB) NEB SCH ×3 (18:57→19:22)
[2021-05-04 19:22] LABS: BASO % 0.5 % (0.0-1.0); EOS # 0.1 10^3/uL (0.0-0.5); EOS % 1.7 % (0.0-3.0); HEMOGLOBIN 14.1 g/dl (12.0-15.5); LYMPH # 2.5 10^3/uL (1.5-5.0); LYMPH % 41.8 % (24.0-44.0); MEAN CORPUSCULAR HEMOGLOBIN 29.4 pg (27.0-33.0); MEAN CORPUSCULAR HGB CONC 31.3 g/dl (32.0-36.5); MEAN CORPUSCULAR VOLUME 93.9 fl (80.0-96.0); MONO # 0.5 10^3/uL (0.0-0.8); MONO % 8.6 % (2.0-8.0); NEUTROPHILS # 2.9 10^3/uL (1.5-8.5); NEUTROPHILS % 47.2 % (36.0-66.0); PLATELET COUNT, AUTOMATED 216 10^3/uL (150-450); RED BLOOD COUNT 4.79 10^6/uL (4.00-5.40); WHITE BLOOD COUNT 6.1 10^3/uL (4.0-10.0)
[2021-05-04 19:38] LABS: BILIRUBIN,DIRECT 0.1 MG/DL (0.0-0.2); BILIRUBIN,TOTAL 0.4 MG/DL (0.2-1.0); TOTAL PROTEIN 7.2 GM/DL (6.4-8.2)
[2021-05-04] MEDS ORDERED: ACETAMINOPHEN 325 MG TAB PO ONE (20:00)
[2021-05-04] MEDS ORDERED: predniSONE 20 MG TAB PO ONE (20:00)
[2021-05-04] MEDS ORDERED: MEDR4PAK PO (20:04)
[2021-05-04 20:15] VITALS: BP 131/71
--- NOTE | 2021-05-05 03:23 | ECGEPIP ---
[facility] - ED Test Date: 2021-05-04 Pat Name: SCOTT SENIOR Department: Room: - Gender: Female Rn Access: : 1980 Requested By: Erika Jacinto Order Number: [id number] Reading MD: Carlos Reardon Measurements Intervals [place] Rate: 47 P: 15 DE: 160 QRS: 17 QRSD: 100 T: 27 QT: 486 QTc: 430 Interpretive Statements Sinus bradycardia Minimal voltage criteria for LVH, may be normal variant ( Michel product ) T wave abnormality, consider anterior ischemia SIMILAR TO 03/04/20 Electronically Signed on 05-05-2021 3:22:40 EDT by Carlos Reardon
== END 2021-05-04 20:53 | disposition home or self-care (01) ==
LOC: M ED 17:32
DX: J45.901 Unspecified asthma with (acute) exacerbation (principal); R00.1 Bradycardia, unspecified; I51.7 Cardiomegaly; I51.9 Heart disease, unspecified; I10 Essential (primary) hypertension; E78.5 Hyperlipidemia, unspecified; Z79.899 Other long term (current) drug therapy; Z88.6 Allergy status to analgesic agent; Z88.8 Allergy status to other drugs, medicaments and biological substances; Z91.89 Other specified personal risk factors, not elsewhere classified
CPT/HCPCS: 71045; 80047; 80076; 83690; 83880; 84484; 85025; 93005; 94640; 94760; 99284; J7512

== ENCOUNTER 2021-05-21 13:33 | Emergency (ER) | payer OTHER, MEDICAID ==
[~2021-05-21] VITALS: Ht 157.5 cm; Wt 103.6 kg
[~2021-05-21 13:33] MED LIST changes: +FAMO10TA50 PO; -FAMO1TAB25 PO; +MEDR4PAK PO; +OMEP40CA4 PO; -OMEP40CA97 PO
[2021-05-21] MEDS ORDERED: PANT40TA29 (13:43)
[2021-05-21] MEDS ORDERED: MITI1CAP (13:43)
[2021-05-21 14:24] LABS: BASO % 0.3 % (0.0-1.0); EOS # 0.1 10^3/uL (0.0-0.5); EOS % 1.5 % (0.0-3.0); HEMATOCRIT 42.5 % (36.0-47.0); LYMPH # 2.4 10^3/uL (1.5-5.0); LYMPH % 41.1 % (24.0-44.0); MEAN CORPUSCULAR HEMOGLOBIN 29.4 pg (27.0-33.0); MEAN CORPUSCULAR HGB CONC 32.9 g/dl (32.0-36.5); MEAN CORPUSCULAR VOLUME 89.3 fl (80.0-96.0); MONO # 0.6 10^3/uL (0.0-0.8); MONO % 10.3 % (2.0-8.0); NEUTROPHILS # 2.7 10^3/uL (1.5-8.5); NEUTROPHILS % 46.6 % (36.0-66.0); PLATELET COUNT, AUTOMATED 239 10^3/uL (150-450); RED BLOOD COUNT 4.76 10^6/uL (4.00-5.40); WHITE BLOOD COUNT 5.8 10^3/uL (4.0-10.0)
--- NOTE | 2021-05-21 14:36 | REP ---
INDICATION: CHEST PAIN COMPARISON: 05/04/2021 TECHNIQUE: Portable AP view of the chest FINDINGS: The mediastinum and cardiac silhouette are stable and within normal limits for portable technique. The lung aguirre are clear without acute consolidation, effusion, or pneumothorax. Skeletal structures are intact. IMPRESSION: No acute cardiopulmonary process appreciated. <Electronically signed by Perez Downing > 05/21/21 [id number]
--- NOTE | 2021-05-21 14:37 | REP ---
INDICATION: AMS COMPARISON: 05/04/2020 TECHNIQUE: Axial noncontrast images from the skull base to the vertex with coronal reformations. This CT examination was performed using the following dose reduction techniques: Automated exposure control, adjustment of mA and/or kv according to the patient's size, and use of iterative reconstruction technique. FINDINGS: The ventricles, sulci, and cisterns are normal in position and appearance. Mederos-white differentiation is maintained. No acute intracranial hemorrhage, mass/mass effect, pathology or trauma/injury. No evidence for acute infarction. No extra-axial fluid collection. Calvarium is intact. Paranasal sinuses and mastoid air cells are clear. IMPRESSION: Normal noncontrast head CT. No evidence for acute intracranial pathology or trauma/injury. <Electronically signed by Perez Downing > 05/21/21 [id number]
[2021-05-21 14:51] LABS: BLOOD UREA NITROGEN 9 MG/DL (7-18); CALCIUM LEVEL 9.1 MG/DL (8.5-10.1); CARBON DIOXIDE LEVEL 26 MEQ/L (21-32); CHLORIDE LEVEL 108 MEQ/L (98-107); CK-MB VALUE MASS < 1.0 NG/ML (<3.6); CPK CREATINE PHOSPHOKINASE 76 U/L (26-192); CREATININE FOR GFR 0.76 MG/DL (0.55-1.30); GLOMERULAR FILTRATION RATE > 60.0 (>60); GLUCOSE, FASTING 99 MG/DL (70-100); MB/CK RELATIVE INDEX 1.32 (< OR =4); POTASSIUM SERUM 4.1 MEQ/L (3.5-5.1); SODIUM LEVEL 140 MEQ/L (136-145); TROPONIN I < 0.02 NG/ML (< 0.10)
[2021-05-21 16:01] VITALS: BP 144/98
--- NOTE | 2021-05-21 21:16 | ECGEPIP ---
[facility] - ED Test Date: 2021-05-21 Pat Name: SCOTT SENIOR Department: Room: - Gender: Female Improvement Auditor: YOSHI : 1980 Requested By: Carlos Rose Order Number: [id number] Reading MD: Erika Jacinto Measurements Intervals [place] Rate: 59 P: 10 NH: 162 QRS: 14 QRSD: 98 T: 14 QT: 430 QTc: 425 Interpretive Statements Sinus bradycardia T wave abnormality, consider anterior ischemia, similar 05/04/21 Electronically Signed on 05-21-2021 21:15:39 EDT by Erika Jacinto
== END 2021-05-21 16:08 | disposition home or self-care (01) ==
LOC: M ED 13:33
DX: F45.0 Somatization disorder (principal); R56.9 Unspecified convulsions; R00.1 Bradycardia, unspecified; J45.909 Unspecified asthma, uncomplicated; E66.9 Obesity, unspecified; Z79.899 Other long term (current) drug therapy; Z88.6 Allergy status to analgesic agent; Z88.8 Allergy status to other drugs, medicaments and biological substances; Z91.02 Food additives allergy status

== ENCOUNTER 2021-06-02 15:39 | Emergency (ER) | payer OTHER, MEDICAID ==
[~2021-06-02] VITALS: Ht 157.5 cm; Wt 104.0 kg
[~2021-06-02 15:39] MED LIST changes: +MITI1CAP; +PANT40TA29
--- NOTE | 2021-06-02 16:48 | REP ---
INDICATION: CHEST PAIN. COMPARISON: Comparison study May 21, 2021. TECHNIQUE: Portable upright AP chest radiograph. FINDINGS: Right hemidiaphragm remains slightly elevated. The lungs are well inflated and clear. The pleural angles are sharp. Cardiomediastinal silhouette is unremarkable. Pulmonary vasculature is not increased. EKG electrodes are seen.. IMPRESSION: No active disease. <Electronically signed by Manjit Curtis > 06/02/21 [id number]
--- NOTE | 2021-06-02 17:19 | ECGEPIP ---
[facility] - ED Test Date: 2021-06-02 Pat Name: SCOTT SENIOR Department: Room: - Gender: Female Rn Heart: YOSHI : 1980 Requested By: Erika Jacinto Order Number: [id number] Reading MD: Pepe Issa Measurements Intervals [place] Rate: 60 P: 26 NC: 166 QRS: 4 QRSD: 100 T: 21 QT: 436 QTc: 436 Interpretive Statements Normal sinus rhythm Minimal voltage criteria for LVH, may be normal variant Nonspecific T wave abnormality Similar to tracing done 05-21-21 Electronically Signed on 06-02-2021 17:18:57 EDT by Pepe Issa
[2021-06-02] MEDS ORDERED: GI COCKTAIL 50ML BTL(HYOSCYAMINE/MAALOX/LIDOCAINE VISCOUS)(1:3:1) PO ONE (17:45)
[2021-06-02] MEDS ORDERED: SUCRALFATE SUSP 1GM/10ML UD PO ONE (17:45)
[2021-06-02 17:52] LABS: BASO % 0.5 % (0.0-1.0); EOS # 0.1 10^3/uL (0.0-0.5); EOS % 1.6 % (0.0-3.0); HEMATOCRIT 43.1 % (36.0-47.0); HEMOGLOBIN 13.9 g/dl (12.0-15.5); LYMPH # 1.8 10^3/uL (1.5-5.0); LYMPH % 27.8 % (24.0-44.0); MEAN CORPUSCULAR HEMOGLOBIN 29.6 pg (27.0-33.0); MEAN CORPUSCULAR HGB CONC 32.3 g/dl (32.0-36.5); MEAN CORPUSCULAR VOLUME 91.9 fl (80.0-96.0); MONO # 0.6 10^3/uL (0.0-0.8); MONO % 9.7 % (2.0-8.0); NEUTROPHILS # 3.9 10^3/uL (1.5-8.5); NEUTROPHILS % 60.1 % (36.0-66.0); PLATELET COUNT, AUTOMATED 224 10^3/uL (150-450); RED BLOOD COUNT 4.69 10^6/uL (4.00-5.40); WHITE BLOOD COUNT 6.4 10^3/uL (4.0-10.0)
[2021-06-02 18:14] LABS: INR 0.96
[2021-06-02 18:15] LABS: PARTIAL THROMBOPLASTIN TIME 25.8 SECONDS (24.2-38.5)
[2021-06-02 18:16] LABS: ALBUMIN 3.9 GM/DL (3.2-5.2); ALT/SGPT 35 U/L (12-78); BILIRUBIN,DIRECT 0.2 MG/DL (0.0-0.2); BILIRUBIN,TOTAL 0.4 MG/DL (0.2-1.0); BLOOD UREA NITROGEN 13 MG/DL (7-18); CALCIUM LEVEL 8.7 MG/DL (8.5-10.1); CARBON DIOXIDE LEVEL 30 MEQ/L (21-32); CHLORIDE LEVEL 106 MEQ/L (98-107); CREATININE FOR GFR 0.84 MG/DL (0.55-1.30); FREE T4 0.77 NG/DL (0.76-1.46); GLOMERULAR FILTRATION RATE > 60.0 (>60); GLUCOSE, FASTING 93 MG/DL (70-100); LIPASE 73 U/L (73-393); NT-PRO BNP 85 PG/ML (<125); POTASSIUM SERUM 4.5 MEQ/L (3.5-5.1); SODIUM LEVEL 140 MEQ/L (136-145); TOTAL PROTEIN 7.1 GM/DL (6.4-8.2)
[2021-06-02] MEDS ORDERED: ISOVUE-370 76% 100ML VIAL As Ordered ONE (18:32)
--- NOTE | 2021-06-02 19:14 | REPVR ---
PROCEDURE INFORMATION: Exam: CTA Chest With Contrast Exam date and time: 06/02/2021 6:27 PM Age: 40 years old Clinical indication: Chest wall pain; Additional info: Cp TECHNIQUE: Imaging protocol: Computed tomographic angiography of the chest with contrast. 3D rendering (Not supervised by radiologist): MIP and/or 3D reconstructed images were created by the technologist. Radiation optimization: All CT scans at this facility use at least one of these dose optimization techniques: automated exposure control; mA and/or kV adjustment per patient size (includes targeted exams where dose is matched to clinical indication); or iterative reconstruction. Contrast material: ISOVUE 370; Contrast volume: 75 ml; Contrast route: INTRAVENOUS (IV); COMPARISON: CT ANGIO CHEST 03/04/2020 10:33 PM FINDINGS: Pulmonary arteries: There are no pulmonary emboli. Aorta: There is no aortic dissection or aneurysm. Lungs: Unremarkable. No consolidation. No masses. Pleural spaces: Unremarkable. No pneumothorax. No pleural effusion. Heart: Unremarkable. No cardiomegaly. No pericardial effusion. Lymph nodes: Unremarkable. No enlarged lymph nodes. Bones/joints: Unremarkable. No acute fracture. Soft tissues: Unremarkable. IMPRESSION: 1. There is no aortic dissection or aneurysm. 2. There are no pulmonary emboli. 3. No acute pulmonary parenchymal abnormalities. Electronically signed by: David Johnson On 06/02/2021 19:14:00 PM
[2021-06-02 20:27] VITALS: BP 115/64
== END 2021-06-02 20:34 | disposition home or self-care (01) ==
LOC: M ED 15:39
DX: R07.89 Other chest pain (principal); I10 Essential (primary) hypertension; K21.9 Gastro-esophageal reflux disease without esophagitis; Z86.711 Personal history of pulmonary embolism; J45.909 Unspecified asthma, uncomplicated; F41.9 Anxiety disorder, unspecified; F45.9 Somatoform disorder, unspecified; Z79.899 Other long term (current) drug therapy; Z88.6 Allergy status to analgesic agent; Z88.8 Allergy status to other drugs, medicaments and biological substances; Z91.89 Other specified personal risk factors, not elsewhere classified
CPT/HCPCS: 36415; 71045; 71275; 80048; 80076; 83690; 83880; 84439; 84443; 84484; 85025; 85610; 85730; 93005; 93041; 94760; 99285; Q9967

== ENCOUNTER → 2021-06-16 | Outpatient (REF) | payer OTHER, MEDICAID ==
[2021-06-16 17:35] LABS: BASO % 0.4 % (0.0-1.0); EOS # 0.1 10^3/uL (0.0-0.5); EOS % 2.2 % (0.0-3.0); HEMATOCRIT 40.4 % (36.0-47.0); LYMPH # 1.9 10^3/uL (1.5-5.0); LYMPH % 37.4 % (24.0-44.0); MEAN CORPUSCULAR HEMOGLOBIN 29.4 pg (27.0-33.0); MEAN CORPUSCULAR HGB CONC 32.2 g/dl (32.0-36.5); MEAN CORPUSCULAR VOLUME 91.4 fl (80.0-96.0); MONO # 0.5 10^3/uL (0.0-0.8); MONO % 10.5 % (2.0-8.0); NEUTROPHILS # 2.5 10^3/uL (1.5-8.5); NEUTROPHILS % 49.3 % (36.0-66.0); PLATELET COUNT, AUTOMATED 241 10^3/uL (150-450); RED BLOOD COUNT 4.42 10^6/uL (4.00-5.40)
[2021-06-16 17:39] LABS: ALBUMIN 3.7 GM/DL (3.2-5.2); ALT/SGPT 35 U/L (12-78); BILIRUBIN,TOTAL 0.5 MG/DL (0.2-1.0); BLOOD UREA NITROGEN 13 MG/DL (7-18); CALCIUM LEVEL 8.7 MG/DL (8.5-10.1); CARBON DIOXIDE LEVEL 27 MEQ/L (21-32); CHLORIDE LEVEL 111 MEQ/L (98-107); CHOLESTEROL LEVEL 127 MG/DL (<200); CHOLESTEROL RISK RATIO 2.228 (<5); CREATININE FOR GFR 0.74 MG/DL (0.55-1.30); GLOMERULAR FILTRATION RATE > 60.0 (>60); GLUCOSE, FASTING 101 MG/DL (70-100); HDL CHOLESTEROL 57 MG/DL (>40); LDL CHOLESTEROL 52 MG/DL (<100); NON-HDL-C 70 MG/DL; POTASSIUM SERUM 3.7 MEQ/L (3.5-5.1); SODIUM LEVEL 145 MEQ/L (136-145); TRIGLYCERIDES LEVEL 89 MG/DL (<150)
[2021-06-16 17:48] LABS: TOTAL 25(OH) VITAMIN D 73.5 NG/ML (30.0-100.0)
== END ==
LOC: M LAB REF 16:20
PROVIDERS: ATTEND Nurse Practitioner Family
DX: E78.5 Hyperlipidemia, unspecified (principal); E55.9 Vitamin D deficiency, unspecified

== ENCOUNTER → 2021-06-20 | Outpatient (CLI) | payer OTHER, MEDICAID ==
--- NOTE | 2021-06-20 11:52 | PFTRPT ---
Height: 62.00 Inches Weight: 227.00 Lbs BSA: 2.02 Diagnosis: R06.00 DATE: 06/20/2021 ORDERING PHYSICIAN: JOHANN Hawkins Pre and post bronchodilator studies have excellent technical quality. Some difficulty with maneuver in the prebronchodilator portion of the study is noted. Forced vital capacity is reduced. FEV1 out of proportion. Obstructive index is therefore reduced. Expiratory limit of the flow-volume loop does raise a question of flow rate limitation but suboptimal performance of the required maneuver hampers data acquisition. Again, bronchodilator response is suggested but again refer to the above. Total lung capacity is borderline. Residual volume is in proportion. Diffusing capacity is normal. Hemoglobin is acceptable at 13.2. Airway resistance and conductance are normal. IMPRESSION: Suboptimal performance of the study hampers data acquisition. Cannot rule out a mild reversible defect. Please correlate clinically. MTDD
== END ==
LOC: M CARPUL 10:57
PROVIDERS: ATTEND Physician Assistant
DX: R06.00 Dyspnea, unspecified (principal)

== ENCOUNTER 2021-06-21 01:18 | Emergency (ER) | payer OTHER, MEDICAID ==
[~2021-06-21] VITALS: Ht 157.5 cm; Wt 102.9 kg
[2021-06-21 01:18] VITALS: BP 134/84
[2021-06-21] MEDS ORDERED: PRED20TA PO (03:35)
[2021-06-21] MEDS ORDERED: predniSONE 20 MG TAB PO ONE (03:35)
== END 2021-06-21 03:56 | disposition home or self-care (01) ==
LOC: M ED 01:18
DX: J20.8 Acute bronchitis due to other specified organisms (principal); Z20.828 Contact with and (suspected) exposure to other viral communicable diseases; J45.909 Unspecified asthma, uncomplicated; Z79.899 Other long term (current) drug therapy; Z88.6 Allergy status to analgesic agent; Z88.8 Allergy status to other drugs, medicaments and biological substances; Z91.018 Allergy to other foods
CPT/HCPCS: 99282; J7512

== ENCOUNTER 2021-07-20 14:37 | Emergency (ER) | payer OTHER, MEDICAID ==
[~2021-07-20] VITALS: Ht 157.5 cm; Wt 98.7 kg
[2021-07-20 14:37] VITALS: BP 127/75
[2021-07-20] MEDS ORDERED: BREO1INH3 PO (14:48)
[2021-07-20] MEDS ORDERED: NS 1,000 ML IV ONE (20:25)
[2021-07-20] MEDS ORDERED: ONDANSETRON 4MG/2ML VIAL IV ONE (20:25)
[2021-07-20] MEDS ORDERED: PANTOPRAZOLE 40MG VIAL (C9113 PER 1) IV ONE (20:25)
[2021-07-20] MEDS ORDERED: GI COCKTAIL 50ML BTL(HYOSCYAMINE/MAALOX/LIDOCAINE VISCOUS)(1:3:1) PO ONE (20:25)
[2021-07-20 21:01] LABS: BASO % 0.2 % (0.0-1.0); EOS # 0.1 10^3/uL (0.0-0.5); EOS % 1.8 % (0.0-3.0); HEMATOCRIT 41.6 % (36.0-47.0); HEMOGLOBIN 13.4 g/dl (12.0-15.5); LYMPH % 38.3 % (24.0-44.0); MEAN CORPUSCULAR HEMOGLOBIN 29.6 pg (27.0-33.0); MEAN CORPUSCULAR HGB CONC 32.2 g/dl (32.0-36.5); MONO # 0.6 10^3/uL (0.0-0.8); MONO % 11.1 % (2.0-8.0); NEUTROPHILS # 2.5 10^3/uL (1.5-8.5); NEUTROPHILS % 48.4 % (36.0-66.0); PLATELET COUNT, AUTOMATED 221 10^3/uL (150-450); RED BLOOD COUNT 4.52 10^6/uL (4.00-5.40); WHITE BLOOD COUNT 5.1 10^3/uL (4.0-10.0)
[2021-07-20 21:41] LABS: ALBUMIN 3.7 GM/DL (3.2-5.2); BILIRUBIN,DIRECT 0.2 MG/DL (0.0-0.2); BILIRUBIN,TOTAL 0.5 MG/DL (0.2-1.0); TOTAL PROTEIN 7.2 GM/DL (6.4-8.2)
--- NOTE | 2021-07-20 22:15 | REPVR ---
PROCEDURE INFORMATION: Exam: XR Complete Acute Abdomen Series Including Chest Exam date and time: 07/20/2021 9:37 PM Age: 41 years old Clinical indication: Abdominal pain; Epigastric; Additional info: Epigastric pain TECHNIQUE: Imaging protocol: XR complete acute abdomen series, including 2 or more views of the abdomen and a single view chest. COMPARISON: NC PORTABLE CHEST X-RAY 06/02/2021 4:36 PM FINDINGS: Lungs: Normal. No consolidation. Pleural spaces: Normal. No pleural effusions. No pneumothorax. Heart/Mediastinum: Normal. No cardiomegaly. Gastrointestinal tract: Nonobstructive bowel gas pattern. No bowel dilation. Intraperitoneal space: No organomegaly or mass effect. No free air. Bones/joints: Normal. No acute fracture. Soft tissues: Normal. IMPRESSION: No acute findings. Electronically signed by: Francois Norris On 07/20/2021 22:15:24 PM
[2021-07-20] MEDS ORDERED: ACETAMINOPHEN 500 MG TAB PO ONE (23:35)
== END 2021-07-21 00:14 | disposition home or self-care (01) ==
LOC: M ED 14:37
DX: R10.9 Unspecified abdominal pain (principal); R11.0 Nausea; R19.7 Diarrhea, unspecified; D64.9 Anemia, unspecified; Z86.711 Personal history of pulmonary embolism; Z79.899 Other long term (current) drug therapy; Z88.6 Allergy status to analgesic agent; Z88.8 Allergy status to other drugs, medicaments and biological substances; Z91.02 Food additives allergy status
CPT/HCPCS: 74021; 80047; 80076; 83690; 84702; 85025; 87505; 96361; 96374; 96375; 99283; C9113; J2405

== ENCOUNTER 2021-08-09 10:27 | Emergency (ER) | payer OTHER, MEDICAID ==
[~2021-08-09] VITALS: Ht 157.5 cm; Wt 98.3 kg
[~2021-08-09 10:27] MED LIST changes: +BREO1INH3 PO
[2021-08-09 11:33] LABS: APPEARANCE, URINE HAZY (CLEAR); BACTERIA, URINE AUTO 1+ (NEGATIVE); BILIRUBIN, URINE AUTO NEGATIVE (NEGATIVE); BLOOD, URINE BLOOD NEGATIVE (NEGATIVE); COLOR, URINE YELLOW (YELLOW); GLUCOSE, URINE (UA) AUTO NEGATIVE (NEGATIVE); KETONE, URINE AUTO NEGATIVE (NEGATIVE); LEUKOCYTE ESTERASE, URINE AUTO NEGATIVE (NEGATIVE); NITRITE, URINE AUTO NEGATIVE (NEGATIVE); PROTEIN, URINE AUTO NEGATIVE (NEGATIVE); RBC, URINE AUTO 1 /HPF (0-3); SPECIFIC GRAVITY URINE AUTO 1.025 (1.002-1.035); SQUAMOUS EPITHELIAL CELL UR AU 4 /HPF (0-6); WBC, URINE AUTO 1 /HPF (0-3)
[2021-08-09 11:34] LABS: MUCUS, URINE SMALL (NEGATIVE)
[2021-08-09 13:05] LABS: BASO % 0.3 % (0.0-1.0); EOS # 0.1 10^3/uL (0.0-0.5); EOS % 1.3 % (0.0-3.0); HEMATOCRIT 41.8 % (36.0-47.0); HEMOGLOBIN 13.6 g/dl (12.0-15.5); LYMPH # 2.2 10^3/uL (1.5-5.0); LYMPH % 36.5 % (24.0-44.0); MEAN CORPUSCULAR HEMOGLOBIN 30.2 pg (27.0-33.0); MEAN CORPUSCULAR HGB CONC 32.5 g/dl (32.0-36.5); MEAN CORPUSCULAR VOLUME 92.9 fl (80.0-96.0); MONO # 0.6 10^3/uL (0.0-0.8); MONO % 9.4 % (2.0-8.0); NEUTROPHILS # 3.1 10^3/uL (1.5-8.5); NEUTROPHILS % 52.2 % (36.0-66.0); PLATELET COUNT, AUTOMATED 247 10^3/uL (150-450); WHITE BLOOD COUNT 5.9 10^3/uL (4.0-10.0)
--- NOTE | 2021-08-09 13:13 | REP ---
INDICATION: left renal colic. COMPARISON: 03/21/2018 the latest prior TECHNIQUE: Standard helical technique without intravenous contrast. Stone protocol utilized secondary to left renal colic. FINDINGS: There is no significant change in appearance of the lung bases. Limited evaluation of the solid intra-organs and gallbladder show no gross abnormalities. Limited evaluation of the pancreas, adrenal glands, and kidneys show no gross abnormalities. There is no nephroureterolithiasis, hydronephrosis, or hydroureter. There are multiple bilateral pelvic phleboliths status quo. The bowel loops and the mesenteries are within normal limits. There is no evidence of free fluid or free air. The abdominal aorta and para-aortic regions are within normal limits. The imaged osseous structures are within normal limits. IMPRESSION: CT findings are within normal limits. <Electronically signed by Reynaldo Peters > 08/09/21 [id number]
[2021-08-09 13:29] LABS: BLOOD UREA NITROGEN 16 MG/DL (7-18); CARBON DIOXIDE LEVEL 26 MEQ/L (21-32); CHLORIDE LEVEL 110 MEQ/L (98-107); CREATININE FOR GFR 0.66 MG/DL (0.55-1.30); GLOMERULAR FILTRATION RATE > 60.0 (>58); GLUCOSE, FASTING 90 MG/DL (70-100); POTASSIUM SERUM 4.1 MEQ/L (3.5-5.1); SODIUM LEVEL 140 MEQ/L (136-145)
[2021-08-09 14:32] VITALS: BP 135/72
--- NOTE | 2021-08-09 19:09 | ECGEPIP ---
[facility] - ED Test Date: 2021-08-09 Pat Name: SCOTT SENIOR Department: Room: - Gender: Female Jet Engine Mechanic: LEANNE : 1980 Requested By: GENE TIJERINA PA-C. Order Number: [id number] Reading MD: Erika Jacinto Measurements Intervals [place] Rate: 50 P: 3 NM: 146 QRS: 0 QRSD: 98 T: 4 QT: 456 QTc: 415 Interpretive Statements Sinus bradycardia Minimal voltage criteria for LVH, may be normal variant ( [place] product ) NSTTW abnormalities decreased rate 06/02/21 Electronically Signed on 08-09-2021 19:08:30 EDT by Erika Jacinto
== END 2021-08-09 15:26 | disposition home or self-care (01) ==
LOC: M ED 10:27
DX: R55 Syncope and collapse (principal); S73.102A Unspecified sprain of left hip, initial encounter; S80.10XA Contusion of unspecified lower leg, initial encounter; W19.XXXA Unspecified fall, initial encounter; Y92.9 Unspecified place or not applicable; Y93.9 Activity, unspecified; Y99.9 Unspecified external cause status; R00.1 Bradycardia, unspecified; Z79.899 Other long term (current) drug therapy; Z88.6 Allergy status to analgesic agent; Z88.8 Allergy status to other drugs, medicaments and biological substances; Z91.02 Food additives allergy status

== ENCOUNTER 2021-10-01 18:01 | Emergency (ER) | payer OTHER, MEDICAID ==
[~2021-10-01] VITALS: Ht 157.5 cm; Wt 98.8 kg
[2021-10-01] MEDS ORDERED: ACETAMINOPHEN TAB 650MG DOSE (2X325MG) PO ONE (20:35)
[2021-10-01 21:16] LABS: BASO % 0.4 % (0.0-1.0); EOS # 0.1 10^3/uL (0.0-0.5); HEMATOCRIT 40.8 % (36.0-47.0); HEMOGLOBIN 13.3 g/dl (12.0-15.5); LYMPH # 2.7 10^3/uL (1.5-5.0); LYMPH % 38.5 % (24.0-44.0); MEAN CORPUSCULAR HGB CONC 32.6 g/dl (32.0-36.5); MEAN CORPUSCULAR VOLUME 92.1 fl (80.0-96.0); MONO # 0.7 10^3/uL (0.0-0.8); NEUTROPHILS # 3.5 10^3/uL (1.5-8.5); NEUTROPHILS % 48.8 % (36.0-66.0); PLATELET COUNT, AUTOMATED 277 10^3/uL (150-450); RED BLOOD COUNT 4.43 10^6/uL (4.00-5.40); WHITE BLOOD COUNT 7.1 10^3/uL (4.0-10.0)
--- NOTE | 2021-10-01 21:30 | REPVR ---
PROCEDURE INFORMATION: Exam: XR Left Foot Exam date and time: 10/01/2021 8:48 PM Age: 41 years old Clinical indication: Pain; Foot; Left; Additional info: Trauma to left great toe TECHNIQUE: Imaging protocol: XR Left foot. Views: 3 or more views. COMPARISON: CR Foot, complete 01/27/2020 9:59 PM FINDINGS: Bones/joints: Normal. Soft tissues: Normal. IMPRESSION: No acute findings. Electronically signed by: Mansi Graf On 10/01/2021 21:29:41 PM
--- NOTE | 2021-10-01 21:31 | REPVR ---
PROCEDURE INFORMATION: Exam: XR Left Hip Exam date and time: 10/01/2021 8:48 PM Age: 41 years old Clinical indication: Hip pain; Left hip; Additional info: Left hip pain TECHNIQUE: Imaging protocol: XR Left hip. Views: 2 or 3 views hip with pelvis when performed. COMPARISON: CT ABD PELVIS W/O CONTRAST 08/09/2021 12:50 PM FINDINGS: Bones/joints: Unremarkable. No acute fracture. Soft tissues: Unremarkable. Organs: Calcifications present within the pelvis appear predominantly vascular in nature but a small urinary stone is not excluded. IMPRESSION: 1. Normal radiographs of the left hip. Electronically signed by: Mansi Graf On 10/01/2021 21:31:02 PM
--- NOTE | 2021-10-01 21:32 | REPVR ---
PROCEDURE INFORMATION: Exam: US Duplex Left Lower Extremity Veins, Limited Exam date and time: 10/01/2021 9:09 PM Age: 41 years old Clinical indication: Edema, localized; Lower extremity, left; Additional info: Left leg edema R/O dvt TECHNIQUE: Imaging protocol: Real-time Duplex ultrasound of the Left Lower Extremity with 2-D brennan scale, color Doppler flow and spectral waveform analysis with image documentation. Limited exam focused on the left lower extremity veins. COMPARISON: US Duplex, Ext LOWER veins, bilat 04/13/2017 11:19 PM FINDINGS: Left deep veins: Unremarkable. The common femoral, femoral, proximal profunda femoral and popliteal veins are patent without thrombus. Normal Doppler waveforms. Normal compressibility and/or augmentation response. Left superficial veins: Unremarkable. Saphenofemoral junction is patent without thrombus. Soft tissues: Unremarkable. IMPRESSION: No evidence of deep vein thrombosis. Electronically signed by: Mansi Graf On 10/01/2021 21:31:59 PM
[2021-10-01 21:49] LABS: BLOOD UREA NITROGEN 10 MG/DL (7-18); CALCIUM LEVEL 8.9 MG/DL (8.5-10.1); CARBON DIOXIDE LEVEL 29 MEQ/L (21-32); CHLORIDE LEVEL 105 MEQ/L (98-107); CREATININE FOR GFR 0.75 MG/DL (0.55-1.30); GLOMERULAR FILTRATION RATE > 60.0 (>58); GLUCOSE, FASTING 88 MG/DL (70-100); SODIUM LEVEL 141 MEQ/L (136-145)
[2021-10-01 22:14] VITALS: BP 142/70
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
--- OUTSIDE RECORDS SUMMARY | 2021-10-01 22:20 | CCD | Continuity of Care Document ---
Author Author Trish MELGAR DPM Organization Unknown Address [address] [place] [address], [facility] [address] [place] [address] Phone [phone] Care Team Providers Care Fashion Model Name Role Phone Diana Metzger AUTM [phone] Problems Active Problems Provider Date Neuralgia Jean Paul Melgar DPM Onset: 12/21/2020 Pain in limb Jean Paul Melgar DPM Onset: 12/21/2020 Plantar fascial fibromatosis Jean Paul Melgar DPM Onset: Sprain of right ankle Jean Paul Melgar DPM Onset: 02/13/2021 Social History Type Date Description Comments Sex Unknown ETOH Use Denies alcohol use Tobacco Use Start: Unknown Patient has never smoked Allergies and adverse reactions Active Allergies Criticality Reaction | Severity Comments Date Aspirin Unable to assess criticality Urticaria 01/05/2016 Ibuprofen Unable to assess criticality Urticaria 01/05/2016 NSAIDs Unable to assess criticality 07/31/2018 Medications Active Medications SIG Qnty Indications Ordering Provide r Date Prednisone 20mg Tablets 4 tablets day 1-3 (2 in the morning, 1 noon, 1 evening), 3 tablets day 4-7 , 2 tablets day 8-10, 1 tablet day 10-14 follow 35tabs Jean Paul Melgar DPM Biofreeze 4% Gel apply to feet and toes daily 89ml Jean Paul Melgar DPM 09/21/2021 Biotin 5000 5mg Capsules 1 by mouth every day 60caps Jean Paul Melgar DPM 05/12/2021 Ammonium Lactate 12% Cream Apply To Feet Daily 140units Jean Paul Melgar DPM 03/16/2021 Aspercreme W/Lidocaine 4% Cream apply to foot 2-3 times daily as needed 1units Jean Paul Melgar, CAITM 07/10/2019 Tramadol HCL 50mg Tablets 1 tabs every 12 hours as needed for pain 20tabs Jean Paul Melgar, DPM Oxycodone-Acetaminophen 5-325mg Ta blets 1 or 2 tablets every 4 hours as needed for pain 20tabs Belen Melgar, DPM 05/21/2019 Naproxen Ec 500mg take one tablet by mouth twice daily . 30units Jean Paul Melgar, DPM 016 Methylprednisolone 4mg Tablets medrol kenny- take as directed 21tabs Jean Paul Melgar, CAITM 05/11/2016 Ofloxacin (Otic) 0.3% Solution Instill Five Drops [...] needed for pain 14tabs Jean Paul Melgar, CAIT Cefdinir 300mg Capsules Unknown Neomycin/Polymyxin/Hydrocortisone (Otic) 3.5-53215-9 Solution Granados RPA Fluoxetine HCL 40mg Capsules Unknown Omeprazole 20mg Capsules Callie Spaulding RPA Trazodone HCL 100mg Tablets Unknown Dexilant 30mg Capsules DR Nishant MOTTA, Callie Triamcinolone Acetonide 0.1% Ointment Maggie Saravia, Nystatin [id number]/GM Ointment Maggie Saravia, Medications Administered in Office Medication SIG Qnty Indications Ordering Provider Date Inject Triamcinolone Acetonide 10 ML, ND C 2007-5686-85 Injection Jean Paul marnio, DP 12/20/2020 Inject Dexamthosone Phosphate 86792-670- 30 Injection Jean Paul Melgar, DP 021 Inject Triamcinolone Acetonide 10 ML, ND C 9539-1271-87 Injection Jean Paul marino, DP 06/13/2020 Inject Dexamthosone Phosphate 83160-908- 30 Injection Jean Paul Melgar, DP 020 Inject Triamcinolone Acetonide 10 ML, ND C Injection Jean Paul marino, DP 02/02/2020 Inject Dexamthosone Phosphate 10042-843- 30 Injection Jean Paul Melgar, DP 020 Inject Triamcinolone Acetonide 10 ML, ND C 5193-5374-54 Injection Jean Paul marino, DPM 01/25/2016 Inject Dexamthosone Phosphate 69518-875- 30 Injection Jean Paul Melgar, DP 016 Immunizations Description No Information Available Vital [...] Information Available Procedures Date Code Description Status 09/21/2021 17303 Office/Outpatient Established SF MDM 10-19 Min Completed 05/12/2021 50174 Office/Outpatient Established SF MDM 10-19 Min Completed Medical Devices Description No Information Available Encounters Type Date Location Provider Dx Diagnosis Office Visit 09/21/2021 3:00p [place] [facility] Jean Paul Melgar, [facility] M65.871 Other synovitis and tenosynovitis, right ankle and foot Office Visit 05/12/2021 11:00a [facility] Jean Paul Melgar DPM M72.2 Plantar fascial fibromatosis M65.879 Other synovitis and tenosyno vitis, unsp ankle and foot Assessments Date Code Description Provider 09/21/2021 M65.871 Other synovitis and tenosynoviti s, right ankle and foot Jean Paul Melgar DPM 05/12/2021 M72.2 Plantar fascial fibromatosis And marcello Melgar DPM 05/12/2021 M65.879 Other synovitis and tenosynovitis, unspecified ankle and foot Jean Paul Melgar DPM Plan of Treatment Future Appointment(s):* 10/09/2021 3:15 pm - Jean Paul Mlegar DPM at [facility] Functional Status Description No Information Available Mental Status Description No Information Available Referrals Description No Information Available
--- OUTSIDE RECORDS SUMMARY | 2021-10-01 22:20 | CCD | Continuity of Care Document ---
Author Author Trish RAINEY PA Organization Unknown Address [address] [place] [address] Phone [phone] Care Team Providers Care Dairy Associate Name Role Phone Jeannie Hernandez AUTM [phone] Diana Metzger AUTM AUTM Unavailable AUTM Unavailable Problems Active Problems Provider Date Temporomandibular joint [...] Pepe Mcgovern MD Onset: 06/20/2018 Abdominal pain iKm Calvillo RPA-C Onset: 06/20 Bilateral temporomandibular joint disorder El Tamayo II, PA-C Onset: 06/20/2018 Sensorineural hearing loss, bilateral El Roni TARIQ PA-C Onset: 06/20/2018 Impacted cerumen El Tamayo II, PA-C Onset: 07/02/2018 Otitis externa El Tamayo II, PA-C Onset: 07/02/2018 Mild intermittent asthma JOHANN Hawkins Onset: 07/18/20 21 Social History Type Date Description Comments Sex Unknown Tobacco Use Start: Unknown Never Smoked Cigarettes ETOH Use Denies alcohol use Tobacco Use Start: Unknown Non Smoker Recreational Drug Use Denies Drug Use Smoking Status Reviewed: 07/18/21 Non Smoker Allergies, Adverse Reactions, Alerts Active Allergies Criticality Reaction | Severity Comments Date Aspirin Unable to assess criticality Hives 04/13/2010 Ibuprofen Unable to assess criticality Urticaria 08/23/2016 Medications Active Medications SIG Qnty Indications Ordering Provide r Date Breo Ellipta 200-25mcg/Inh Aerosol inhale one puff by mouth every day 60units Fernando Brownlee D.O. Ventolin HFA 108(90Base) mcg/Act A erosol 2 puffs qid/prn 18gm Brea Baeza.O. 07/18/2021 Miralax 17GM/Scoop Powder take 17 grams by mouth once daily. 510units K59.00 Pepe Mcgovern MD 07/06/2021 Clotrimazole/Betamethasone Dipropionate 1-0.05% Cream apply a thin layer to the external canal twice a day as needed for itch 15gm H60.8x3 Tera Rangel MD 07/06/2021 Pantoprazole Sodium 40mg Tablets D R Take One Tablet By Mouth Every Day 30tabs R13.10 Pepe Mcgovern MD 0 02/13/2021 Ferrous Sulfate 325(65Fe) mg Table ts DR 1 by mouth a day 30tabs Unknown Fluoxetine HCL 40mg Capsules by mouth every day Unknown Atorvastatin Calcium 40mg Tablets daily Unknown Metoprolol Tartrate 25mg Tablets twice daily Unknown Zonisamide 50mg Capsules Unknown Vitamin D2 2000Unit Tablets 1 cap by mouth every day Unknown Mitigare 0.6mg Capsules 1 by mouth every day Unknown Immunizations Description No Information Available Vital Signs Date Vital Result Comment 07/18/2021 3:46pm BP Systolic 120 mmHg BP Diastolic 62 mmHg Heart Rate 53 /min O2 % BldC Oximetry 98 % Height 62 inches 5'2" Weight 218.00 lb BMI (Body Mass Index) 39.9 kg/m2 [place] Body Weight 110 lb Weight 98.885 kg BSA (Body Surface Area) 1.98 m2 07/06/2021 1:16pm Height 62 inches 5'2" Weight 222.00 lb BMI (Body Mass Index) 40.6 kg/m2 [place] Body Weight 110 lb Weight 100.699 kg BSA (Body Surface Area) 2.00 m2 Results Test Acquired Date Facility Test Result H/L Range Note FVL/Sumit 05/25/2021 [employer] PDFReport SEE IMAGE FVC-Pred 3.47 L FVC-Pre 2.15 L FVC-%Pred-Pre 62 L FVC-LLN 2.82 L Fev1-Pred 2.85 L Fev1-Pre 1.77 L Fev1-%Pred-Pre 62 L Fev1-LLN 2.30 L Fev6-Pred 3.41 L Fev6-Pre 2.15 L Fev6-%Pred-Pre 63 L Fev6-LLN 2.77 L Bst0nve-Qkko 83 % Jxq0cmv-Elo 82 % Tbr9ite-%Pred-Pre 99 % Ohd8qyp-LYP 73 % Kij5fkr-Aoia 98 % Mup2lzt-Lfq 100 % Hts9zwn-%Pred-Pre 101 % FEFMax-Pred 6.68 L/E/sec FEFMax-Pre 3.32 L/E/sec FEFMax-%Pred-Pre 49 L/E/sec FEFMax-LLN 5.07 L/E/sec Djl5301-Dzfp 3.05 L/E/sec Tqw8213-Paf 1.96 L/E/sec Oal6161-%Pred-Pre 64 L/E/sec Yiu4565-YCG 1.89 L/E/sec ExpTime-Pre 6.28 sec Xuu0oql7-Mjbq 84 % Oeg0hes5-Pfa 82 % Vmj2bnj7-%Pred-Pre 97 % Fbb9oqd6-MJT 75 % Procedures Date Code Description Status 07/18/2021 40690 Office/Outpatient Established Mo d MDM 30-39 Min Completed 07/06/2021 63616 Office/Outpatient Established Mo d MDM 30-39 Min Completed 07/06/2021 48561 Office/Outpatient Established Lo w MDM 20-29 Min Completed 07/06/2021 06910 Remove Impacted Cerumen Complete d 06/26/2021 00338 Office/Outpatient Established Mo d MDM 30-39 Min Completed 05/25/2021 43424 Office/Outpatient New Moderate M DM 45-59 Minutes Completed 05/25/2021 39041 Spirometry Completed 03/31/2021 32094 Dilate Esophagus Unguided Sound Or Bougie Completed 03/31/2021 82837 Endoscopy Upper GI Complex Diagn ostic Completed 02/13/2021 66053 Office/Outpatient New Moderate M DM 45-59 Minutes Completed Medical Devices Description No Information Available Encounters Type Date Location Provider Dx Diagnosis Office Visit 07/18/2021 4:00p [facility] Pulmonary/Thoracic JOHANN Hawkins J45.20 Mild intermittent asthma, uncomplicated Office Visit 07/06/2021 10:00a [facility] Gastroenterology [facility] ctice YOMAIRA Red K21.9 Gastro-esophageal reflux dis ease without esophagitis K59.00 Constipation, unspecified R10.10 Upper abdominal pain, unspec ified R11.0 Nausea Office Visit 07/06/2021 1:15p [facility] RADHA Fang IIC H60.8x3 Other otitis externa, bilateral H61.23 Impacted cerumen, bilateral Office Visit 06/26/2021 11:00a [facility] Pulmonary/Thoracic JOHANN Hawkins R06.00 Dyspnea, unspecified Office Visit 05/25/2021 1:00p [facility] Pulmonary/Thoracic JOHANN Hawkins R06.00 Dyspnea, unspecified Office Visit 02/13/2021 11:45a [facility] Practice YOMAIRA Red R13.10 Dysphagia, unspecified K21.9 Gastro-esophageal reflux dis ease without esophagitis R10.10 Upper abdominal pain, unspec ified R11.0 Nausea Assessments Date Code Description Provider 07/18/2021 J45.20 Mild intermittent asthma, uncomp licated JOHANN Hawkins 07/06/2021 H60.8x3 Other otitis externa, bilateral El Roni II, PA-C 07/06/2021 H61.23 Impacted cerumen, bilateral Morris as Roni II, PA-C 07/06/2021 K21.9 Gastro-esophageal reflux disease without esophagitis Kimjelly Peacockbois, [facility] 07/06/2021 K59.00 Constipation, unspecified Meliss a A Yulialebois, [facility] 07/06/2021 R10.10 Upper abdominal pain, unspecifie d Kim A Yulialebois, [facility] 07/06/2021 R11.0 Nausea Kim A Ayush bois, [facility] 06/26/2021 R06.00 Dyspnea, unspecified Ronal Knap p, PA 05/25/2021 R06.00 Dyspnea, unspecified Ronal Knap p, PA 03/31/2021 R13.12 Dysphagia, oropharyngeal phase D hernan Mcgovern MD 03/31/2021 R13.14 Dysphagia, pharyngoesophageal ph ase Pepe Mcgovern MD 02/13/2021 R13.10 Dysphagia, unspecified Kim A Yulialebois, [facility] 02/13/2021 K21.9 Gastro-esophageal reflux disease without esophagitis Kim A Ayushbois, RPA-C 02/13/2021 R10.10 Upper abdominal pain, unspecifie d Kim A Yulialebois, [facility] 02/13/2021 R11.0 Nausea Kim A Ayush bois, [facility] Plan of Treatment Future Appointment(s):* 08/30/2021 2:30 pm - JOHANN Hawkins at [facility] Pulmonary/Thoracic * 08/14/2021 10:30 am - YOMAIRA Red at [facility] Gastroenterology Practice 07/18/2021 - JOHANN Hawkins* J45.20 Mild intermittent asthma, uncomplicated * * New Labs:* FVL/Sumit, Ordered: 07/18/21 * Follow up:* Follow up in 4-6 weeks with sumit Functional Status Description No Information Available Mental Status Description No Information Available Referrals Refer to Dr Reason for Referral Status Appt Date Ronal Rainey R.P.A.-C. ASTHMA Closed 11/2020 [facility]-Pulmonary [address] [place], [place] [address] [phone] Pepe Mcgovern M.D. 97232 [phone] Closed [facility], Gastroenterology [address], [address] [place], [place] [address] [phone] Tera Rangel MD Dysphagia Scheduled 02/13 [address] [place], [place] [id number] [phone]
--- OUTSIDE RECORDS SUMMARY | 2021-10-01 22:20 | CCD | Continuity of Care Document ---
Author Author Trish WHITING RPA-C Organization Unknown Address [address], [address] [place] [address] Phone [phone] Care Team Providers Care Integration Software Developer Name Role Phone Jeannie Hernandez AUTM [phone] Diana Mtezger AUTM AUTM Unavailable AUTM Unavailable Problems Active [...] Pepe Mcgovern MD Onset: 06/20/2018 Abdominal pain YOMAIRA Red Onset: 06/20 Bilateral temporomandibular joint disorder El [...] Ibuprofen Unable to assess criticality Urticaria 08/23/2016 NSAIDS Unable to assess criticality 08/14/2021 Medications Active Medications SIG Qnty Indications Ordering Provide r Date Omeprazole 40mg Capsules DR take 1 capsule by mouth once daily. 30caps K21.9 Pepe Mcgovern MD 08/14/2021 Breo Ellipta 200-25mcg/Inh Aerosol inhale one puff by mouth every day 60units Fernando Brownlee D.O. Ventolin HFA 108(90Base) mcg/Act A erosol 2 puffs qid/prn 18gm Fernando Brownlee D.O. 07/18/2021 Miralax 17GM/Scoop Powder take 17 grams by mouth once daily prn 510units K59.00 Pepe Mcgovern MD 07/06/2021 Clotrimazole/Betamethasone Dipropionate 1-0.05% Cream apply a thin layer to the external canal twice a day as needed for itch 15gm H60.8x3 Tera Rangel MD 07/06/2021 Ferrous Sulfate 325(65Fe) mg Table ts DR 1 by mouth a day 30tabs Unknown Fluoxetine HCL 40mg Capsules 2 by mouth every day Unknown Atorvastatin Calcium 40mg Tablets daily Unknown Metoprolol Tartrate 25mg Tablets daily Unknown Zonisamide 50mg Capsules Aman y at hs Unknown Vitamin D2 2000Unit Tablets 1 cap by mouth every day Unknown Mitigare 0.6mg Capsules 1 by mouth every day Unknown Zofran 4mg Tablets take 1 tab as directed as needed for nausea Unknown History Medications Pantoprazole Sodium 40mg Tablets D R Take One Tablet By Mouth Every Day 30tabs R13.10 Pepe Mcgovern MD 0 02/13/2021 - 08/14/2021 Immunizations Description No Information Available Vital Signs Date Vital Result Comment 08/14/2021 10:33am BP Systolic 122 mmHg BP Diastolic 82 mmHg Height 62 inches 5'2" Weight 215.00 lb BMI (Body Mass Index) 39.3 kg/m2 [place] Body Weight 110 lb Weight 97.524 kg BSA (Body Surface Area) 1.97 m2 07/18/2021 3:46pm BP Systolic 120 mmHg BP Diastolic 62 mmHg Heart Rate 53 /min O2 % BldC Oximetry 98 % Height 62 inches 5'2" Weight 218.00 lb BMI (Body Mass Index) 39.9 kg/m2 [place] Body Weight 110 lb Weight 98.885 kg BSA (Body Surface Area) 1.98 m2 Results Test Acquired Date Facility Test Result H/L Range Note FVL/Sumit 05/25/2021 [employer] PDFReport SEE IMAGE FVC-Pred 3.47 L FVC-Pre 2.15 L FVC-%Pred-Pre 62 L FVC-LLN 2.82 L Fev1-Pred 2.85 L Fev1-Pre 1.77 L Fev1-%Pred-Pre 62 L Fev1-LLN 2.30 L Fev6-Pred 3.41 L Fev6-Pre 2.15 L Fev6-%Pred-Pre 63 L Fev6-LLN 2.77 L Ttr1wdm-Xxtu 83 % Ihi0eka-Zcz 82 % Tnd7wmt-%Pred-Pre 99 % Ack5mzf-JSR 73 % Aux0azg-Bpyb 98 % Laa2zcq-Acf 100 % Bwt2tdj-%Pred-Pre 101 % FEFMax-Pred 6.68 L/E/sec FEFMax-Pre 3.32 L/E/sec FEFMax-%Pred-Pre 49 L/E/sec FEFMax-LLN 5.07 L/E/sec Bwo4441-Xmbe 3.05 L/E/sec Lla7516-Jxj 1.96 L/E/sec Fcd7018-%Pred-Pre 64 L/E/sec Tfi3160-XHT 1.89 L/E/sec ExpTime-Pre 6.28 sec Tvi0aym0-Xhgz 84 % Ssc6uvl5-Mdz 82 % Ufv5gfv7-%Pred-Pre 97 % Hxv4hhx1-MWR 75 % Procedures Date Code Description Status 07/18/2021 32504 Office/Outpatient Established Mo d MDM 30-39 Min Completed 07/06/2021 26102 Office/Outpatient Established Mo d MDM 30-39 Min Completed 07/06/2021 79568 Office/Outpatient Established Lo w MDM 20-29 Min Completed 07/06/2021 20444 Remove Impacted Cerumen Complete d 06/26/2021 27684 Office/Outpatient Established Mo d MDM 30-39 Min Completed 05/25/2021 64438 Office/Outpatient New Moderate M DM 45-59 Minutes Completed 05/25/2021 00568 Spirometry Completed 03/31/2021 43319 Dilate Esophagus Unguided Sound Or Bougie Completed 03/31/2021 69185 Endoscopy Upper GI Complex Diagn ostic Completed 02/13/2021 49529 Office/Outpatient New Moderate M DM 45-59 Minutes Completed Medical Devices Description No Information Available Encounters Type Date Location Provider Dx Diagnosis Office Visit 07/18/2021 4:00p [facility] JOHANN Hawkins J45.20 Mild intermittent asthma, uncomplicated Office Visit 07/06/2021 10:00a [facility] Gastroenterology Honey Whiting, RPA-C K21.9 Gastro-esophageal reflux dis ease without esophagitis K59.00 Constipation, unspecified R10.10 Upper abdominal pain, unspec ified R11.0 Nausea Office Visit 07/06/2021 1:15p [facility] RADHA Fang IIC H60.8x3 Other otitis externa, bilateral H61.23 Impacted cerumen, bilateral Office Visit 06/26/2021 11:00a [facility]Thoracic JOHANN Hawkins R06.00 Dyspnea, unspecified Office Visit 05/25/2021 1:00p [facility]Thor[facility] Ronal Urban, PA R06.00 Dyspnea, unspecified Office Visit 02/13/2021 11:45a [facility] Kim A Ayushbois, [facility] R13.10 Dysphagia, unspecified K21.9 Gastro-esophageal reflux dis ease without esophagitis R10.10 Upper abdominal pain, unspec ified R11.0 Nausea Assessments Date Code Description Provider 08/14/2021 K21.9 Gastro-esophageal reflux disease without esophagitis Kim A Yulialebois, [facility] 08/14/2021 K59.00 Constipation, unspecified Meliss a A Charlebois, [facility] 07/18/2021 J45.20 Mild intermittent asthma, uncomp licated Ronal Urban, PA 07/06/2021 H60.8x3 Other otitis externa, bilateral El Taylorc II, [facility] 07/06/2021 H61.23 Impacted cerumen, bilateral Morris chas Taylorc II, [facility] 07/06/2021 K21.9 Gastro-esophageal reflux disease without esophagitis Kim A Charlebois, [facility] 07/06/2021 K59.00 Constipation, unspecified Meliss a A Charlebois, [facility] 07/06/2021 R10.10 Upper abdominal pain, unspecifie d Kim A Charlebois, [facility] 07/06/2021 R11.0 Nausea Kim A Ayush bois, [facility] 06/26/2021 R06.00 Dyspnea, unspecified Ronal Knap p, PA 05/25/2021 R06.00 Dyspnea, unspecified Ronal Knap p, PA 03/31/2021 R13.12 Dysphagia, oropharyngeal phase D hernan Mcgovern MD 03/31/2021 R13.14 Dysphagia, pharyngoesophageal ph ase Pepe Mcgovern MD 02/13/2021 R13.10 Dysphagia, unspecified Kim A Charlebois, [facility] 02/13/2021 K21.9 Gastro-esophageal reflux disease without esophagitis Kim A Charlebois, [facility] 02/13/2021 R10.10 Upper abdominal pain, unspecifie d Kim A Charlebois, [facility] 02/13/2021 R11.0 Nausea [facility]ush bois, [facility] Plan of Treatment Future Appointment(s):* 08/30/2021 2:30 pm - JOHANN Hawkins at [facility] Pulmonary/Thoracic 08/14/2021 - YOMAIRA Red* K21.9 Gastro-esophageal reflux disease without esophagitis * K59.00 Constipation, unspecified * * New Medication:* Omeprazole 40 mg * Follow up:* 3 months, sooner if needed (f/u GERD; bowels). Functional Status Description No Information Available Mental Status Description No Information Available Referrals Refer to Dr Reason for Referral Status Appt Date Ronal Urban, RSegunPBogdan. ASTHMA Closed 11/2020 [facility]-Pulmonary [address] [place], [place] [address] [phone] Pepe Mcgovern M.D. 96055 [phone] Closed [facility], Gastroenterology [address], [address] [place] [address] [phone]
--- OUTSIDE RECORDS SUMMARY | 2021-10-01 22:20 | CCD | Continuity of Care Document ---
Author Author Trish URBAN P.A. Organization Unknown Address [address] [place] [address] Phone [phone] Care Team Providers Care Freelance Recruiter Name Role Phone Jeannie Hernandez AUTM [phone] Diana Metzger AUTM AUTM Unavailable AUTM Unavailable [...] Mcgovern MD Onset: 06/20/2018 Abdominal pain Kim A Karli RPA-C Onset: 06/20 Bilateral temporomandibular joint disorder El Tamayo II, PA-C Onset: 06/20/2018 Sensorineural hearing loss, bilateral El Arredondomaria r TARIQ PA-C Onset: 06/20/2018 Impacted cerumen El Tamayo II, PA-C Onset: 07/02/2018 Otitis externa El Tamayo II, PA-C Onset: 07/02/2018 Mild intermittent asthma Trice Hawkins Onset: 07/18/20 21 Social History Type Date Description Comments Sex Unknown Tobacco Use Start: Unknown Never Smoked Cigarettes ETOH Use Denies alcohol use Tobacco Use Start: Unknown Non Smoker Recreational Drug Use Denies Drug Use Smoking Status Reviewed: 08/29/21 Non Smoker Allergies and adverse reactions Active Allergies Criticality [...] as directed as needed for nausea Unknown Immunizations Description No Information Available Vital Signs Date Vital Result Comment 08/29/2021 11:02am BP Systolic 120 mmHg BP Diastolic 62 mmHg Heart Rate 45 /min O2 % BldC Oximetry 95 % Height 62 inches 5'2" Weight 215.00 lb BMI (Body Mass Index) 39.3 kg/m2 [place] Body Weight 110 lb Weight 97.524 kg BSA (Body Surface Area) 1.97 m2 08/14/2021 10:33am BP Systolic 122 mmHg BP Diastolic 82 mmHg Height 62 inches 5'2" Weight 215.00 lb BMI (Body Mass Index) 39.3 kg/m2 [place] Body Weight 110 lb Weight 97.524 kg BSA (Body Surface Area) 1.97 m2 Results Test Acquired Date Facility Test Result H/L Range Note FVL/Sumit 08/29/2021 REMOTV PDFReport SEE IMAGE FVC-Pred 3.45 L FVC-Pre 2.76 L FVC-%Pred-Pre 79 L FVC-LLN 2.80 L Fev1-Pred 2.83 L Fev1-Pre 2.24 L Fev1-%Pred-Pre 78 L Fev1-LLN 2.28 L Fev6-Pred 3.40 L Fev6-Pre 2.76 L Fev6-%Pred-Pre 81 L Fev6-LLN 2.76 L Mkk4wzv-Plcj 82 % Hyc7fnb-Jer 81 % Wdv8jao-%Pred-Pre 98 % Cka3mhc-TZJ 72 % Chm6rev-Luqp 98 % Rtg5zgg-Klg 100 % Owe1pve-%Pred-Pre 101 % FEFMax-Pred 6.67 L/E/sec FEFMax-Pre 3.45 L/E/sec FEFMax-%Pred-Pre 51 L/E/sec FEFMax-LLN 5.06 L/E/sec Xpr2759-Peau 3.02 L/E/sec Kjt9762-Vrj 2.29 L/E/sec Rnl7313-%Pred-Pre 76 L/E/sec Req8227-VUC 1.85 L/E/sec ExpTime-Pre 6.47 sec Ljb5kfx6-Hkco 84 % Rnx6omz1-Wsx 81 % Bwm0isu3-%Pred-Pre 96 % Vhc1pdh6-EYQ 75 % FVL/Sumit 05/25/2021 REMOTV PDFReport SEE IMAGE FVC-Pred 3.47 L FVC-Pre 2.15 L FVC-%Pred-Pre 62 L FVC-LLN 2.82 L Fev1-Pred 2.85 L Fev1-Pre 1.77 L Fev1-%Pred-Pre 62 L Fev1-LLN 2.30 L Fev6-Pred 3.41 L Fev6-Pre 2.15 L Fev6-%Pred-Pre 63 L Fev6-LLN 2.77 L Qam3ftn-Owrq 83 % Gtu0qvm-Qlw 82 % Fte2qym-%Pred-Pre 99 % Mgl6zcm-WPR 73 % Zaa5mgw-Udhj 98 % Fyl4xcc-Vky 100 % Hfd2gfe-%Pred-Pre 101 % FEFMax-Pred 6.68 L/E/sec FEFMax-Pre 3.32 L/E/sec FEFMax-%Pred-Pre 49 L/E/sec FEFMax-LLN 5.07 L/E/sec Ymf5773-Jybi 3.05 L/E/sec Hag2447-Mre 1.96 L/E/sec Jky3775-%Pred-Pre 64 L/E/sec Ymx1146-CBE 1.89 L/E/sec ExpTime-Pre 6.28 sec Lnm5oxz1-Kpnq 84 % Tse8yah4-Wmc 82 % Awn8vsm0-%Pred-Pre 97 % Xff2vwe4-GRQ 75 % Procedures Date Code Description Status 08/14/2021 16385 Office/Outpatient Established Lo w MDM 20-29 Min Completed 07/18/2021 85386 Office/Outpatient Established Mo d MDM 30-39 Min Completed 07/06/2021 18067 Office/Outpatient Established Mo d MDM 30-39 Min Completed 07/06/2021 50213 Office/Outpatient Established Lo w MDM 20-29 Min Completed 07/06/2021 60761 Remove Impacted Cerumen Complete d 06/26/2021 18610 Office/Outpatient Established Mo d MDM 30-39 Min Completed 05/25/2021 20577 Office/Outpatient New Moderate M DM 45-59 Minutes Completed 05/25/2021 56542 Spirometry Completed 03/31/2021 22661 Dilate Esophagus Unguided Sound Or Bougie Completed 03/31/2021 72679 Endoscopy Upper GI Complex Diagn ostic Completed Medical Devices Description No Information Available Encounters Type Date Location Provider Dx Diagnosis Office Visit 08/14/2021 10:30a [facility] Gastroenterology [facility] YOMAIRA Gracia K21.9 Gastro-esophageal reflux dis ease without esophagitis K59.00 Constipation, unspecified Office Visit 07/18/2021 4:00p [facility] Pulmonary/Thoracic Ronal Urban, P.A. J45.20 Mild intermittent asthma, uncomplicated Office Visit 07/06/2021 10:00a [facility] Gastroenterology [facility] YOMAIRA Gracia K21.9 Gastro-esophageal reflux dis ease without esophagitis K59.00 Constipation, unspecified R10.10 Upper abdominal pain, unspec ified R11.0 Nausea Office Visit 07/06/2021 1:15p [facility]NT [facility] El Tamayo II, PA-C H60.8x3 Other otitis externa, bilateral H61.23 Impacted cerumen, bilateral Office Visit 06/26/2021 11:00a [facility] Pulmonary/Thoracic Ronal Urban, P.A. R06.00 Dyspnea, unspecified Office Visit 05/25/2021 1:00p [facility] Pulmonary/Thoracic Ronal Rajni, P.A. R06.00 Dyspnea, unspecified Assessments Date Code Description Provider 08/29/2021 J45.20 Mild intermittent asthma, uncomp licated Ronal Urban, P.A. 08/14/2021 K21.9 Gastro-esophageal reflux disease without esophagitis YOMAIRA Red 08/14/2021 K59.00 Constipation, unspecified [place] YOMAIRA Thompson 07/18/2021 J45.20 Mild intermittent asthma, uncomp licated Ronal Urban, P.A. 07/06/2021 H60.8x3 Other otitis externa, bilateral El Tamayo II, PA-C 07/06/2021 H61.23 Impacted cerumen, bilateral Morris Tamayo II, PA-C 07/06/2021 K21.9 Gastro-esophageal reflux disease without esophagitis Kim Calvillo, [facility] 07/06/2021 K59.00 Constipation, unspecified Wildaiss luci Calvillo, [facility] 07/06/2021 R10.10 Upper abdominal pain, unspecifie d Kim Calvillo, [facility] 07/06/2021 R11.0 Nausea Kim soni, [facility] 06/26/2021 R06.00 Dyspnea, unspecified Ronal Knap p, P.A. 05/25/2021 R06.00 Dyspnea, unspecified Ronal Knap p, P.A. 03/31/2021 R13.12 Dysphagia, oropharyngeal phase D hernan Mcgovern MD 03/31/2021 R13.14 Dysphagia, pharyngoesophageal ph ase Pepe Mcgovern MD Plan of Treatment Future Appointment(s):* 11/30/2021 3:00 pm - Trice Hawkins at [facility] Pulmonary/Thoracic * 11/13/2021 10:30 am - Kim Luci KALIA Calvillo- at [facility] Gastroenterology Practice 08/29/2021 - Trice Hawkins* J45.20 Mild intermittent asthma, uncomplicated * * New Labs:* FVL/Sumit, Scheduled: 11/30/21 * Follow up:* Follow up in 3 months with sumit Functional Status Description No Information Available Mental Status Description No Information Available Referrals Refer to Dr Reason for Referral Status Appt Date Ronal Urban R.P.AYolanda. ASTHMA Closed 11/2020 [facility]-P[facility] [address] [place], [place] [address] [phone] Pepe Mcgovern M.D. 00964 [phone] Closed [facility], Gastroenterology [address], [address] [place] [address] [phone]
--- OUTSIDE RECORDS SUMMARY | 2021-10-01 22:20 | CCD ---
Author Author Mauro Trish Ray Organization Unknown Address [address] [address] Phone Care Team Providers Care Screw Machine Operator Single Spindle Name Role Phone Ray Wade PCP Allergies, Adverse Reactions, Alerts No Data [...] Name Taxonomy Code Taxonomy Desc Phone Number [phone] fluoxetine by mouth [id number] 03/16/2021 once a day 40 mg cap asad 87500 [phone] Isidra Peters [id number] Psychiatric/Mental Health [phone] Social History Social History Element Description Concept Effective Date Smoking Status Unknown if ever smoked [id number] Immunizations No Data in Section Vital Signs No Data in Section Procedures Date Concept Id Description Targeted Site Concept Targeted Site Concept Type 09/22/2021 32180-76 [facility] Tele[facility] E/M Lvl 3--Est pt CPT Patient has no history of implantable de vices Encounters Encounter Start Date End Date Encounter Type Description Diagnosis Di agnosis Desc Location Author First Name Author Last Name Npid Taxonomy Cod e Taxonomy Desc Phone Number Location Addr1 Location Addr2 Location City Location Sta te Location Zip [id number] 09/22/2021 09/22/2021 91753-76 [facility] Telemed E/M Lvl 3--Est p t F33.9 Major depressive disorder, recurrent, unspecified [facility] Mauro Bell [id number] Nurse Practitioner [phone] [facility], [address] [address] Plan of Treatment No Data in Section Lab Results No Data in Section Instructions No Data in Section Functional Cognitive Status No Data in Section Insurance Providers Insurance Id Policy Effective Date Policy Thru Date Company N kenroy [id number] 2020 [facility] [employer] [facility] [id number] 2015 MEDICAID
--- OUTSIDE RECORDS SUMMARY | 2021-10-01 22:20 | CCD | Continuity of Care Document ---
Author Author Trish MELGAR DPM Organization Unknown Address [address] [place] [address], [facility] [address] [place] [address] Phone [phone] Care Team Providers Care Hotel Guest Service Agent Name Role Phone Diana Metzger AUTM [phone] Problems Active Problems Provider Date Neuralgia Jean [...] CAIT Cefdinir 300mg Capsules Unknown Neomycin/Polymyxin/Hydrocortisone (Otic) 3.5-97002-7 Solution Granados RPA Fluoxetine HCL 40mg Capsules Unknown Omeprazole 20mg Capsules Callie Spaulding RPA Trazodone HCL 100mg Tablets Unknown Dexilant 30mg Capsules DR Nishant MOTTA, Callie Triamcinolone Acetonide 0.1% Ointment Maggie Saravia, Nystatin 496099Xohh/GM Ointment Maggie Saravia, Medications Administered in Office Medication SIG Qnty Indications Ordering Provider Date Inject Triamcinolone Acetonide 10 ML, ND C 3889-8243-82 Injection Jean Paul marino, DP 12/20/2020 Inject Dexamthosone Phosphate 29753-039- 30 Injection Jean Paul Melgar, DP 021 Inject Triamcinolone Acetonide 10 ML, ND C 4215-4030-18 Injection Jean Paul marino, DP 06/13/2020 Inject Dexamthosone Phosphate 13159-952- 30 Injection Jean Paul Melgar, [facility] 020 Inject Triamcinolone Acetonide 10 ML, ND C Injection Jean Paul marino, DP 02/02/2020 Inject Dexamthosone Phosphate 04698-977- 30 Injection Jean Paul Melgar, [facility] 020 Inject Triamcinolone Acetonide 10 ML, ND C 0977-6563-62 Injection Jean Paul marino, DP 01/25/2016 Inject Dexamthosone Phosphate 30613-238- 30 Injection Jean Paul Melgar, [facility] 016 Immunizations Description No Information Available Vital [...] Information Available Procedures Date Code Description Status 05/12/2021 31213 Office/Outpatient Established [facility] 10-19 Min Completed Medical Devices Description No Information Available Encounters Type Date Location Provider Dx Diagnosis Office Visit 05/12/2021 11:00a [place] [facility] Jean Paul Melgar, CAIT M72.2 Plantar fascial fibromatosis M65.879 Other synovitis and tenosyno vitis, unsp ankle and foot Assessments Date Code Description Provider 05/12/2021 M72.2 Plantar fascial fibromatosis And marcello Melgar DPM 05/12/2021 M65.879 Other synovitis and tenosynovitis, unspecified ankle and foot Jean Paul Melgar DPM 03/24/2021 M72.2 Plantar fascial fibromatosis And marcello Melgar DPM Plan of Treatment Future Appointment(s):* 10/09/2021 3:15 pm - Jean Paul Melgar DPM at [facility] Functional Status Description No Information Available Mental Status Description No Information Available Referrals Description No Information Available
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
--- OUTSIDE RECORDS SUMMARY | 2021-10-01 22:20 | CCD | Continuity of Care Document ---
Author Author Trish WHITING RPA-C Organization Unknown Address [address], [address] [place] [address] Phone [phone] Care Team Providers Care Dope Edger Name Role Phone Jeannie Hernandez AUTM [phone] Diana Metzger AUTM AUTM Unavailable AUTM Unavailable [...] lb BMI (Body Mass Index) 39.3 kg/m2 [place] Body Weight 110 lb Weight 97.524 kg BSA (Body Surface Area) 1.97 m2 07/18/2021 3:46pm BP Systolic 120 mmHg BP Diastolic 62 mmHg Heart Rate 53 /min O2 % BldC Oximetry 98 % Height 62 inches 5'2" Weight 218.00 lb BMI (Body Mass Index) 39.9 kg/m2 [place] Body Weight 110 lb Weight 98.885 kg [...] L Fev6-%Pred-Pre 63 L Fev6-LLN 2.77 L Eqq2rkn-Emuj 83 % Hfv9vlr-Suc 82 % Box1zhn-%Pred-Pre 99 % Pvu3orb-VRA 73 % Vya7dys-Qovu 98 % Nlm3kus-Zrv 100 % Lnc3wwy-%Pred-Pre 101 % FEFMax-Pred 6.68 L/E/sec FEFMax-Pre 3.32 L/E/sec FEFMax-%Pred-Pre 49 L/E/sec FEFMax-LLN 5.07 L/E/sec Mkb6862-Btvh 3.05 L/E/sec Gox4464-Xyy 1.96 L/E/sec Xqp5873-%Pred-Pre 64 L/E/sec Exq4416-RAX 1.89 L/E/sec ExpTime-Pre 6.28 sec Axe4nnf4-Bfwv 84 % Vez1anj4-Dge 82 % Zkk9wtj7-%Pred-Pre 97 % Nlv9dni4-RIB 75 % Procedures Date Code Description Status 08/14/2021 08837 Office/Outpatient Established Lo w MDM 20-29 Min Completed 07/18/2021 09562 Office/Outpatient Established Mo d MDM 30-39 Min Completed 07/06/2021 20899 Office/Outpatient Established Mo d MDM 30-39 Min Completed 07/06/2021 73913 Office/Outpatient Established Lo w MDM 20-29 Min Completed 07/06/2021 87608 Remove Impacted Cerumen Complete d 06/26/2021 59700 Office/Outpatient Established Mo d MDM 30-39 Min Completed 05/25/2021 45642 Office/Outpatient New Moderate M DM 45-59 Minutes Completed 05/25/2021 01672 Spirometry Completed 03/31/2021 29030 Dilate Esophagus Unguided Sound Or Bougie Completed 03/31/2021 04715 Endoscopy Upper GI Complex Diagn ostic Completed Medical Devices Description No Information Available Encounters Type Date Location Provider Dx Diagnosis Office Visit 08/14/2021 10:30a [facility] Gastroenter[facility] Pra YOMAIRA Gracia K21.9 Gastro-esophageal reflux dis ease without esophagitis K59.00 Constipation, unspecified Office Visit 07/18/2021 4:00p [facility] JOHANN Hawkins J45.20 Mild intermittent asthma, uncomplicated Office Visit 07/06/2021 10:00a [facility] Pra YOMAIRA Gracia K21.9 Gastro-esophageal reflux dis ease without esophagitis K59.00 Constipation, unspecified R10.10 Upper abdominal pain, unspec ified R11.0 Nausea Office Visit 07/06/2021 1:15p [facility] El Tamayo II, PA-C H60.8x3 Other otitis externa, bilateral H61.23 Impacted cerumen, bilateral Office Visit 06/26/2021 11:00a [facility] JOHANN Hawkins R06.00 Dyspnea, unspecified Office Visit 05/25/2021 1:00p [facility] JOHANN Hawkins R06.00 Dyspnea, unspecified Assessments Date Code Description Provider 08/14/2021 K21.9 Gastro-esophageal reflux disease without esophagitis Kimjelly WhitingYOMAIRA 08/14/2021 K59.00 Constipation, unspecified Wildaiss luci Whiting, TABC 07/18/2021 J45.20 Mild intermittent asthma, uncomp licated Ronal Urban, JOHANN 07/06/2021 H60.8x3 Other otitis externa, bilateral El Roni II, RADHAC 07/06/2021 H61.23 Impacted cerumen, bilateral Morris as Roni II, RADHAC 07/06/2021 K21.9 Gastro-esophageal reflux disease without esophagitis Kimjelly Villarrealakua, YOMAIRA 07/06/2021 K59.00 Constipation, unspecified Meliss luci Villarrealakua, TABC 07/06/2021 R10.10 Upper abdominal pain, unspecifie d Kim Luci VillarrealYOMAIRA fatima 07/06/2021 R11.0 Nausea Kimjelly Peacock zachariah, TAB 06/26/2021 R06.00 Dyspnea, unspecified Ronal Knap p, PA 05/25/2021 R06.00 Dyspnea, unspecified Ronal Knap p, JOHANN 03/31/2021 R13.12 Dysphagia, oropharyngeal phase D hernan Mcgovern MD 03/31/2021 R13.14 Dysphagia, pharyngoesophageal ph ase Pepe Mcgovern MD Plan of Treatment Future Appointment(s):* 11/13/2021 10:30 am - YOMAIRA Red at [facility] * 08/30/2021 2:30 pm - JOHANN Hawkins at [facility] Pulmonary/Thoracic 08/14/2021 - YOMAIRA Red* K21.9 Gastro-esophageal reflux disease without esophagitis * K59.00 Constipation, unspecified * * New Medication:* Omeprazole 40 mg * Comments:* Patient verbalized understanding of above plans and will seek medical attention for any acute changes. Will monitor. * Follow up:* 3 months, sooner if needed (f/u GERD; bowels). Functional Status Description No Information Available Mental Status Description No Information Available Referrals Refer to Dr Reason for Referral Status Appt Date Ronal Urban R.P.A.-C. ASTHMA Closed 11/2020 [facility]-Pulmonary [address] [facility] [address] [place], [place] [address] [phone] Pepe Mcgovern M.D. 83030 [phone] Closed [facility], Gastroenterology [address], [address] [place] [address] [phone]
--- OUTSIDE RECORDS SUMMARY | 2021-10-01 22:20 | CCD | Continuity of Care Document ---
Author Author Trish RAINEY PA Organization Unknown Address [address] [place] [address] Phone [phone] Care Team Providers Care Pattern Fitter Name Role Phone Jeannie Hernandez AUTM [phone] Diana Metzger AUTM AUTM Unavailable AUTM Unavailable [...] Mcgovern MD Onset: 06/20/2018 Abdominal pain Kim Calvillo RPA-C Onset: 06/20 Bilateral temporomandibular joint [...] lb BMI (Body Mass Index) 39.9 kg/m2 [place] Body Weight 110 lb Weight 98.885 kg BSA (Body Surface Area) 1.98 m2 07/06/2021 1:16pm Height 62 inches 5'2" Weight 222.00 lb BMI (Body Mass Index) 40.6 kg/m2 [place] Body Weight 110 lb Weight 100.699 kg [...] L Fev6-%Pred-Pre 63 L Fev6-LLN 2.77 L Hln7nor-Auki 83 % Amw1xwt-Ywc 82 % Nzz1tao-%Pred-Pre 99 % Fhd0ftj-IKK 73 % Hta6dih-Evfy 98 % Hrv7tvl-Yfr 100 % Ttk1snj-%Pred-Pre 101 % FEFMax-Pred 6.68 L/E/sec FEFMax-Pre 3.32 L/E/sec FEFMax-%Pred-Pre 49 L/E/sec FEFMax-LLN 5.07 L/E/sec Mpk8674-Odod 3.05 L/E/sec Omf4361-Wtx 1.96 L/E/sec Mdp1431-%Pred-Pre 64 L/E/sec Bvn8196-QXF 1.89 L/E/sec ExpTime-Pre 6.28 sec Zoo4ujv4-Ukkx 84 % Gnm0enm5-Vef 82 % Kjt8uhm9-%Pred-Pre 97 % Vvc1pvp3-MPZ 75 % Procedures Date Code Description Status 07/06/2021 26986 Office/Outpatient Established Mo d MDM 30-39 Min Completed 07/06/2021 43589 Office/Outpatient Established Lo w MDM 20-29 Min Completed 07/06/2021 56727 Remove Impacted Cerumen Complete d 06/26/2021 96719 Office/Outpatient Established Mo d MDM 30-39 Min Completed 05/25/2021 24464 Office/Outpatient New Moderate M DM 45-59 Minutes Completed 05/25/2021 46384 Spirometry Completed 03/31/2021 66340 Dilate Esophagus Unguided Sound Or Bougie Completed 03/31/2021 89389 Endoscopy Upper GI Complex Diagn ostic Completed 02/13/2021 54047 Office/Outpatient New Moderate M DM 45-59 Minutes Completed Medical Devices Description No Information Available Encounters Type Date Location Provider Dx Diagnosis Office Visit 07/06/2021 10:00a [facility] Gastroenterology [facility] ctice YOMAIRA Red K21.9 Gastro-esophageal reflux dis ease without esophagitis K59.00 Constipation, unspecified R10.10 Upper abdominal pain, unspec ified R11.0 Nausea Office Visit 07/06/2021 1:15p [facility] ENT Practice El Tamayo II, PA-C H60.8x3 Other otitis externa, bilateral H61.23 Impacted cerumen, bilateral Office Visit 06/26/2021 11:00a [facility] Pulmonary/Thoracic JOHANN Hawkins R06.00 Dyspnea, unspecified Office Visit 05/25/2021 1:00p [facility] Pulmonary/Thoracic JOHANN Hawkins R06.00 Dyspnea, unspecified Office Visit 02/13/2021 11:45a [facility] YOMAIRA Red R13.10 Dysphagia, unspecified K21.9 Gastro-esophageal reflux dis ease without esophagitis R10.10 Upper abdominal pain, unspec ified R11.0 Nausea Assessments Date Code Description Provider 07/18/2021 J45.20 Mild intermittent asthma, uncomp licated JOHANN Hawkins 07/06/2021 H60.8x3 Other otitis externa, bilateral El Tamayo II, PA-C 07/06/2021 H61.23 Impacted cerumen, bilateral Morris chas Tamayo II, PA-C 07/06/2021 K21.9 Gastro-esophageal reflux disease without esophagitis Kim Calvillo, RPA-C 07/06/2021 K59.00 Constipation, unspecified Wildaiss luci Calvillo, RPA-C 07/06/2021 R10.10 Upper abdominal pain, unspecifie d Kim Calvillo, RPA-C 07/06/2021 R11.0 Nausea Kim soni, KALIA-C 06/26/2021 R06.00 Dyspnea, unspecified Ronal Knap p, PA 05/25/2021 R06.00 Dyspnea, unspecified Ronal Knap p, PA 03/31/2021 R13.12 Dysphagia, oropharyngeal phase D hernan Mcgovern MD 03/31/2021 R13.14 Dysphagia, pharyngoesophageal ph ase Pepe Mcgovern MD 02/13/2021 R13.10 Dysphagia, unspecified Kim Calvillo, KALIA-C 02/13/2021 K21.9 Gastro-esophageal reflux disease without esophagitis Kim Calvillo, RPA-C 02/13/2021 R10.10 Upper abdominal pain, unspecifie d Kim Calvillo, RPA-C 02/13/2021 R11.0 Nausea Kim almanzarakua, TABC Plan of Treatment Future Appointment(s):* 08/30/2021 2:30 pm - JOHANN Hawkins at [facility] Pulmonary/Thoracic * 08/14/2021 10:30 am - YOMAIRA Red at [facility] Gastroenterology Practice 07/18/2021 - JOHANN Hawkins* J45.20 Mild intermittent asthma, uncomplicated * * New Labs:* FVL/Valier, Ordered: 07/18/21 * Follow up:* Follow up in 4-6 weeks with sumit Functional Status Description No Information Available Mental Status Description No Information Available Referrals Refer to Reason for Referral Status Appt Date Ronal Rainey R.P.A.-C. ASTHMA Closed 0711/2020 [facility]-Pulmonary [address] [place], [place] [address] [phone] Pepe Mcgovern M.D. 25427 [phone] Closed 1 [facility], Gastroenterology [address] [facility] [address] [place] [address] [phone] Tera Rangel MD Dysphagia Scheduled 02/13 [address] [facility] [place] [address] [phone]
--- OUTSIDE RECORDS SUMMARY | 2021-10-01 22:20 | CCD | Continuity of Care Document ---
Author Author Trish URBAN P.A. Organization Unknown Address [address] [place] [address] Phone [phone] Care Team Providers Care Cigarette Roller Name Role Phone Jeannie Hernandez AUTM [phone] Diana Metzger AUTM AUTM Unavailable AUTM Unavailable [...] lb BMI (Body Mass Index) 39.3 kg/m2 [place] Body Weight 110 lb Weight 97.524 kg BSA (Body Surface Area) 1.97 m2 08/14/2021 10:33am BP Systolic 122 mmHg BP Diastolic 82 mmHg Height 62 inches 5'2" Weight 215.00 lb BMI (Body Mass Index) 39.3 kg/m2 [place] Body Weight 110 lb Weight 97.524 kg BSA (Body Surface Area) 1.97 m2 Results Test Acquired Date Facility Test Result H/L Range Note FVL/Sumit 08/29/2021 simfy PDFReport SEE IMAGE FVC-Pred 3.45 L FVC-Pre 2.76 L FVC-%Pred-Pre 79 L FVC-LLN 2.80 L Fev1-Pred 2.83 L Fev1-Pre 2.24 L Fev1-%Pred-Pre 78 L Fev1-LLN 2.28 L Fev6-Pred 3.40 L Fev6-Pre 2.76 L Fev6-%Pred-Pre 81 L Fev6-LLN 2.76 L Tmk5dcc-Vwdp 82 % Zrv2jha-Dnk 81 % Zfc1qvd-%Pred-Pre 98 % Wub6ydx-XAB 72 % Ofm0vhx-Ebcw 98 % Hhd9gxt-Ooi 100 % Req8yxq-%Pred-Pre 101 % FEFMax-Pred 6.67 L/E/sec FEFMax-Pre 3.45 L/E/sec FEFMax-%Pred-Pre 51 L/E/sec FEFMax-LLN 5.06 L/E/sec Klr9792-Ggvg 3.02 L/E/sec Zej3125-Lcb 2.29 L/E/sec Qqg1912-%Pred-Pre 76 L/E/sec Tpj6497-QJN 1.85 L/E/sec ExpTime-Pre 6.47 sec Nai9ypg6-Xpwb 84 % Jik2xjd1-Dnz 81 % Xgw2zsb9-%Pred-Pre 96 % Gky3qzq3-RAE 75 % FVL/Sumit 05/25/2021 simfy PDFReport SEE IMAGE FVC-Pred 3.47 L FVC-Pre 2.15 L FVC-%Pred-Pre 62 L FVC-LLN 2.82 L Fev1-Pred 2.85 L Fev1-Pre 1.77 L Fev1-%Pred-Pre 62 L Fev1-LLN 2.30 L Fev6-Pred 3.41 L Fev6-Pre 2.15 L Fev6-%Pred-Pre 63 L Fev6-LLN 2.77 L Xer1dys-Wjhw 83 % Ocf3kml-Vsn 82 % Dko4fca-%Pred-Pre 99 % Isr6qts-ETE 73 % Cer1lxu-Qfwv 98 % Iws3paa-Zwi 100 % Hxe5sqz-%Pred-Pre 101 % FEFMax-Pred 6.68 L/E/sec FEFMax-Pre 3.32 L/E/sec FEFMax-%Pred-Pre 49 L/E/sec FEFMax-LLN 5.07 L/E/sec Rkf5726-Ixxb 3.05 L/E/sec Hkz7404-Bul 1.96 L/E/sec Xno4350-%Pred-Pre 64 L/E/sec Rjq3299-ZWB 1.89 L/E/sec ExpTime-Pre 6.28 sec Qgh0ooq5-Kphv 84 % Bwj0zsw7-Hgo 82 % Fcf9wcc1-%Pred-Pre 97 % Oqe4gwd4-OEC 75 % Procedures Date Code Description Status 08/14/2021 16924 Office/Outpatient Established Lo w MDM 20-29 Min Completed 07/18/2021 70321 Office/Outpatient Established Mo d MDM 30-39 Min Completed 07/06/2021 92013 Office/Outpatient Established Mo d MDM 30-39 Min Completed 07/06/2021 66201 Office/Outpatient Established Lo w MDM 20-29 Min Completed 07/06/2021 07076 Remove Impacted Cerumen Complete d 06/26/2021 63395 Office/Outpatient Established Mo d MDM 30-39 Min Completed 05/25/2021 07124 Office/Outpatient New Moderate M DM 45-59 Minutes Completed 05/25/2021 93598 Spirometry Completed 03/31/2021 01149 Dilate Esophagus Unguided Sound Or Bougie Completed 03/31/2021 33509 Endoscopy Upper GI Complex Diagn ostic Completed Medical Devices Description No Information Available Encounters Type Date Location Provider Dx Diagnosis Office Visit 08/14/2021 10:30a [facility] Gastroenterology [facility] YOMAIRA Gracia K21.9 Gastro-esophageal reflux dis ease without esophagitis K59.00 Constipation, unspecified Office Visit 07/18/2021 4:00p [facility] Pulmonary/Thoracic Ronal Urban, P.A. J45.20 Mild intermittent asthma, uncomplicated Office Visit 07/06/2021 10:00a [facility] Gastroenter[facility] YOMAIRA Gracia K21.9 Gastro-esophageal reflux dis ease without esophagitis K59.00 Constipation, unspecified R10.10 Upper abdominal pain, unspec ified R11.0 Nausea Office Visit 07/06/2021 1:15p [facility] El Tamayo II, PA-C H60.8x3 Other otitis externa, bilateral H61.23 Impacted cerumen, bilateral Office Visit 06/26/2021 11:00a [facility] Pulmonary/Thoracic Ronal Urban, P.A. R06.00 Dyspnea, unspecified Office Visit 05/25/2021 1:00p [facility]/Thoracic Ronal Rajni, P.A. R06.00 Dyspnea, [...] Gastro-esophageal reflux disease without esophagitis Kim Calvillo, [facility] 07/06/2021 K59.00 Constipation, unspecified Wildaiss luci Calvillo, [facility] 07/06/2021 R10.10 Upper abdominal pain, unspecifie d Kim Calvillo, [facility] 07/06/2021 R11.0 Nausea Kim soni, [facility] 06/26/2021 R06.00 Dyspnea, unspecified Ronal Knap p, P.A. 05/25/2021 R06.00 Dyspnea, unspecified Ronal Knap p, P.A. 03/31/2021 R13.12 Dysphagia, oropharyngeal phase D hernan Mcgovern MD 03/31/2021 R13.14 Dysphagia, pharyngoesophageal ph ase Pepe Mcgovern MD Plan of Treatment Future Appointment(s):* 11/30/2021 3:00 pm - Trice Hawkins at [facility] Pulmonary/Thoracic * 11/13/2021 10:30 am - Kim Luci KALIA Calvillo- at [facility] Gastroenterology Practice 08/29/2021 - Trice Hawkins* J45.20 Mild intermittent asthma, uncomplicated * * New Labs:* FVL/Sumit, Scheduled: 11/30/21 * Follow up:* Follow up in 3 months with sumit Functional Status Description No Information Available Mental Status Description No Information Available Referrals Refer to Dr Reason for Referral Status Appt Date Ronal Urban R.P.AYolanda. ASTHMA Closed 11/2020 [facility]-Pulmonary [address] [place], [place] [address] [phone] Pepe Mcgovern M.D. 93374 [phone] Closed [facility], Gastroenterology [address] [facility], [address] [place] [address] [phone]
--- OUTSIDE RECORDS SUMMARY | 2021-10-01 22:20 | CCD | Continuity of Care Document ---
Author Author Trish URBAN P.A. Organization Unknown Address [address] [place] [address] Phone [phone] Care Team Providers Care Nurse Executive Name Role Phone Jeannie Hernandez AUTM [phone] Diana Metzger AUTM AUTM Unavailable AUTM Unavailable [...] lb BMI (Body Mass Index) 39.3 kg/m2 [place] Body Weight 110 lb Weight 97.524 kg BSA (Body Surface Area) 1.97 m2 08/14/2021 10:33am BP Systolic 122 mmHg BP Diastolic 82 mmHg Height 62 inches 5'2" Weight 215.00 lb BMI (Body Mass Index) 39.3 kg/m2 [place] Body Weight 110 lb Weight 97.524 kg BSA (Body Surface Area) 1.97 m2 Results Test Acquired Date Facility Test Result H/L Range Note FVL/Sumit 08/29/2021 [employer] PDFReport SEE IMAGE FVC-Pred 3.45 L FVC-Pre 2.76 L FVC-%Pred-Pre 79 L FVC-LLN 2.80 L Fev1-Pred 2.83 L Fev1-Pre 2.24 L Fev1-%Pred-Pre 78 L Fev1-LLN 2.28 L Fev6-Pred 3.40 L Fev6-Pre 2.76 L Fev6-%Pred-Pre 81 L Fev6-LLN 2.76 L Hxi8ypf-Xuye 82 % Zyj7hiv-Bzz 81 % Hhh4kmm-%Pred-Pre 98 % Wrx1jfo-BEM 72 % Qrh9fey-Ovxo 98 % Tkl2eaj-Bfh 100 % Ohq1ycc-%Pred-Pre 101 % FEFMax-Pred 6.67 L/E/sec FEFMax-Pre 3.45 L/E/sec FEFMax-%Pred-Pre 51 L/E/sec FEFMax-LLN 5.06 L/E/sec Ciy2601-Zvjk 3.02 L/E/sec Xtp8015-Erk 2.29 L/E/sec Dau2763-%Pred-Pre 76 L/E/sec Goi5115-LBI 1.85 L/E/sec ExpTime-Pre 6.47 sec Aoq3itb2-Txbt 84 % Vcp8mir8-Fay 81 % Ocm2nki4-%Pred-Pre 96 % Tmq1crg1-XHZ 75 % FVL/Sumit 05/25/2021 [employer] PDFReport SEE IMAGE FVC-Pred 3.47 L FVC-Pre 2.15 L FVC-%Pred-Pre 62 L FVC-LLN 2.82 L Fev1-Pred 2.85 L Fev1-Pre 1.77 L Fev1-%Pred-Pre 62 L Fev1-LLN 2.30 L Fev6-Pred 3.41 L Fev6-Pre 2.15 L Fev6-%Pred-Pre 63 L Fev6-LLN 2.77 L Iyk2vru-Enjm 83 % Flw8ztf-Sas 82 % Zij7vqw-%Pred-Pre 99 % Rjf8hmp-VNB 73 % Hvw3ymb-Tzxw 98 % Dtg0ptb-Cdw 100 % Psu7avi-%Pred-Pre 101 % FEFMax-Pred 6.68 L/E/sec FEFMax-Pre 3.32 L/E/sec FEFMax-%Pred-Pre 49 L/E/sec FEFMax-LLN 5.07 L/E/sec Lir2832-Vsbg 3.05 L/E/sec Tey2952-Pgt 1.96 L/E/sec Clt1344-%Pred-Pre 64 L/E/sec Rqa8149-KER 1.89 L/E/sec ExpTime-Pre 6.28 sec Arj1zvc7-Ecue 84 % Lgd5xks6-Wfc 82 % Yzp9ggg2-%Pred-Pre 97 % Uez4kqw2-QEM 75 % Procedures Date Code Description Status 08/14/2021 54028 Office/Outpatient Established Lo w MDM 20-29 Min Completed 07/18/2021 24445 Office/Outpatient Established Mo d MDM 30-39 Min Completed 07/06/2021 49002 Office/Outpatient Established Mo d MDM 30-39 Min Completed 07/06/2021 60123 Office/Outpatient Established Lo w MDM 20-29 Min Completed 07/06/2021 39312 Remove Impacted Cerumen Complete d 06/26/2021 79209 Office/Outpatient Established Mo d MDM 30-39 Min Completed 05/25/2021 48415 Office/Outpatient New Moderate M DM 45-59 Minutes Completed 05/25/2021 20007 Spirometry Completed 03/31/2021 34862 Dilate Esophagus Unguided Sound Or Bougie Completed 03/31/2021 72108 Endoscopy Upper GI Complex Diagn ostic Completed Medical Devices Description No Information Available Encounters Type Date Location Provider Dx Diagnosis Office Visit 08/14/2021 10:30a [facility] Gastroenterology [facility] YOMAIRA Gracia K21.9 Gastro-esophageal reflux dis ease without esophagitis K59.00 Constipation, unspecified Office Visit 07/18/2021 4:00p [facility] Pulmonary/Thoracic Ronal Urban, P.A. J45.20 Mild intermittent asthma, uncomplicated Office Visit 07/06/2021 10:00a [facility] Gastroenterology [facility] YOMAIRA Gracia K21.9 Gastro-esophageal reflux dis ease without esophagitis K59.00 Constipation, unspecified R10.10 Upper abdominal pain, unspec ified R11.0 Nausea Office Visit 07/06/2021 1:15p [facility] ENT Practice El Tamayo II, PA-C H60.8x3 Other otitis externa, bilateral H61.23 Impacted cerumen, bilateral Office Visit 06/26/2021 11:00a [facility] Pulmonary/Thoracic Ronal Urban, P.A. R06.00 Dyspnea, unspecified Office Visit 05/25/2021 1:00p [facility] Pulmonary/Thoracic Ronal Rajni, P.A. R06.00 Dyspnea, unspecified [...] 11/30/2021 3:00 pm - Trice Hawkins at [facility] Pulmonary/Thoracic * 11/13/2021 10:30 am - Kim Luci KALIA Calvillo- at [facility] Gastroenterology Practice 08/29/2021 - Trice Hawkins* J45.20 Mild intermittent asthma, uncomplicated * * New Labs:* FVL/Sumit, Scheduled: 11/30/21 * Follow up:* Follow up in 3 months with sumit Functional Status Description No Information Available Mental Status Description No Information Available Referrals Refer to Dr Reason for Referral Status Appt Date Ronal Urban R.P.AYolanda. ASTHMA Closed 11/2020 [facility]-Pulmonary [address] [place], [place] [address] [phone] Pepe Mcgovern M.D. [phone] Closed [facility], Gastroenterology [address], [address] [place] [address] [phone]
--- OUTSIDE RECORDS SUMMARY | 2021-10-01 22:20 | CCD | Continuity of Care Document ---
Author Author Trish MELGAR DPM Organization Unknown Address [address] [place] [address], [facility] [address] [place] [address] Phone [phone] Care Team Providers Care Capsule Filler Name Role Phone Diana Metzger AUTM [phone] Problems Active Problems Provider Date Neuralgia Jean [...] CAIT Cefdinir 300mg Capsules Unknown Neomycin/Polymyxin/Hydrocortisone (Otic) 3.5-25969-4 Solution Granados RPA Fluoxetine HCL 40mg Capsules Unknown Omeprazole 20mg Capsules Callie Spaulding RPA Trazodone HCL 100mg Tablets Unknown Dexilant 30mg Capsules DR Nishant MOTTA, Callie Triamcinolone Acetonide 0.1% Ointment Maggie Saravia, Nystatin 033305Gqqv/GM Ointment Maggie Saravia, Medications Administered in Office Medication SIG Qnty Indications Ordering Provider Date Inject Triamcinolone Acetonide 10 ML, ND C 4651-1412-23 Injection Jean Paul marino, DP 12/20/2020 Inject Dexamthosone Phosphate 99550-667- 30 Injection Jean Paul Melgar, DP 021 Inject Triamcinolone Acetonide 10 ML, ND C 5675-6022-26 Injection Jean Paul marino, DP 06/13/2020 Inject Dexamthosone Phosphate 67993-856- 30 Injection Jean Paul Melgar, [facility] 020 Inject Triamcinolone Acetonide 10 ML, ND C Injection Jean Paul marino, DP 02/02/2020 Inject Dexamthosone Phosphate 76814-617- 30 Injection Jean Paul Melgar, [facility] 020 Inject Triamcinolone Acetonide 10 ML, ND C 3877-0981-62 Injection Jean Paul marino, DP 01/25/2016 Inject Dexamthosone Phosphate 97948-186- 30 Injection Jean Paul Melgar, [facility] 016 Immunizations Description No Information Available Vital [...] Available Procedures Date Code Description Status 05/12/2021 62553 Office/Outpatient Established [facility] 10-19 Min Completed Medical Devices Description No Information Available Encounters Type Date Location Provider Dx Diagnosis Office Visit 05/12/2021 11:00a [facility] Jean Paul Melgar, CAIT M72.2 Plantar [...] - Jean Paul Melgar DPM at [facility] Functional Status Description No Information Available Mental Status Description No Information Available Referrals Description No Information Available
--- OUTSIDE RECORDS SUMMARY | 2021-10-01 22:20 | CCD | Continuity of Care Document ---
Author Author Trish URBAN P.A. Organization Unknown Address [address] [place] [address] Phone [phone] Care Team Providers Care Electrical Cad Designer Name Role Phone Jeannie Hernandez AUTM [phone] Diana Metzger AUTM AUTM Unavailable AUTM Unavailable [...] lb BMI (Body Mass Index) 39.3 kg/m2 [place] Body Weight 110 lb Weight 97.524 kg BSA (Body Surface Area) 1.97 m2 08/14/2021 10:33am BP Systolic 122 mmHg BP Diastolic 82 mmHg Height 62 inches 5'2" Weight 215.00 lb BMI (Body Mass Index) 39.3 kg/m2 [place] Body Weight 110 lb Weight 97.524 kg BSA (Body Surface Area) 1.97 m2 Results Test Acquired Date Facility Test Result H/L Range Note FVL/Sumit 08/29/2021 [employer] PDFReport SEE IMAGE FVC-Pred 3.45 L FVC-Pre 2.76 L FVC-%Pred-Pre 79 L FVC-LLN 2.80 L Fev1-Pred 2.83 L Fev1-Pre 2.24 L Fev1-%Pred-Pre 78 L Fev1-LLN 2.28 L Fev6-Pred 3.40 L Fev6-Pre 2.76 L Fev6-%Pred-Pre 81 L Fev6-LLN 2.76 L Bfl2xvf-Qtsm 82 % Kqs7dqh-Zlu 81 % Pec3hoo-%Pred-Pre 98 % Awd8zgm-PWO 72 % Lwi2nlk-Pxxm 98 % Srf2fvu-Njt 100 % Qeh4dlr-%Pred-Pre 101 % FEFMax-Pred 6.67 L/E/sec FEFMax-Pre 3.45 L/E/sec FEFMax-%Pred-Pre 51 L/E/sec FEFMax-LLN 5.06 L/E/sec Oiw9943-Jgcz 3.02 L/E/sec Tfp6861-Nte 2.29 L/E/sec Guv9627-%Pred-Pre 76 L/E/sec Oub0629-LFP 1.85 L/E/sec ExpTime-Pre 6.47 sec Ain0vfd4-Vclt 84 % Acc0bya5-Anp 81 % Cxh2mil2-%Pred-Pre 96 % Pwb3gmw2-VHY 75 % FVL/Sumit 05/25/2021 [employer] PDFReport SEE IMAGE FVC-Pred 3.47 L FVC-Pre 2.15 L FVC-%Pred-Pre 62 L FVC-LLN 2.82 L Fev1-Pred 2.85 L Fev1-Pre 1.77 L Fev1-%Pred-Pre 62 L Fev1-LLN 2.30 L Fev6-Pred 3.41 L Fev6-Pre 2.15 L Fev6-%Pred-Pre 63 L Fev6-LLN 2.77 L Ygy6iae-Jkrx 83 % Plp9hkz-Vmg 82 % Fii0mkx-%Pred-Pre 99 % Jcu0zbi-EOC 73 % Ufa8rzy-Jpvj 98 % Zcl8ceo-Vjy 100 % Xlo7nuc-%Pred-Pre 101 % FEFMax-Pred 6.68 L/E/sec FEFMax-Pre 3.32 L/E/sec FEFMax-%Pred-Pre 49 L/E/sec FEFMax-LLN 5.07 L/E/sec Iwr1768-Ntpw 3.05 L/E/sec Zqg5018-Mxr 1.96 L/E/sec Vtr6132-%Pred-Pre 64 L/E/sec Glf4793-JYT 1.89 L/E/sec ExpTime-Pre 6.28 sec Jgp5cwd0-Hcir 84 % Lwe1jaq7-Yxe 82 % Czo1xku0-%Pred-Pre 97 % Nlo9rre8-YJW 75 % Procedures Date Code Description Status 08/14/2021 04952 Office/Outpatient Established Lo w MDM 20-29 Min Completed 07/18/2021 63865 Office/Outpatient Established Mo d MDM 30-39 Min Completed 07/06/2021 39676 Office/Outpatient Established Mo d MDM 30-39 Min Completed 07/06/2021 08718 Office/Outpatient Established Lo w MDM 20-29 Min Completed 07/06/2021 56046 Remove Impacted Cerumen Complete d 06/26/2021 68376 Office/Outpatient Established Mo d MDM 30-39 Min Completed 05/25/2021 81134 Office/Outpatient New Moderate M DM 45-59 Minutes Completed 05/25/2021 23731 Spirometry Completed 03/31/2021 36210 Dilate Esophagus Unguided Sound Or Bougie Completed 03/31/2021 46505 Endoscopy Upper GI Complex Diagn ostic Completed Medical Devices Description No Information Available Encounters Type Date Location Provider Dx Diagnosis Office Visit 08/14/2021 10:30a [facility] Gastroenterology [facility] YOMAIRA Gracia K21.9 Gastro-esophageal reflux dis ease without esophagitis K59.00 Constipation, unspecified Office Visit 07/18/2021 4:00p [facility] Pulmonary/Thoracic Ronal Urban, P.A. J45.20 Mild intermittent asthma, uncomplicated Office Visit 07/06/2021 10:00a [facility] Gastroenterology [facility] YOMAIRA Gracia K21.9 Gastro-esophageal reflux dis ease without esophagitis K59.00 Constipation, unspecified R10.10 Upper abdominal pain, unspec ified R11.0 Nausea Office Visit 07/06/2021 1:15p [facility] ENT Practice El Tamayo II, PA-C H60.8x3 Other otitis externa, bilateral H61.23 Impacted cerumen, bilateral Office Visit 06/26/2021 11:00a [facility] Pulmonary/Thoracic Ronal Urban, P.A. R06.00 Dyspnea, unspecified Office Visit 05/25/2021 1:00p [facility] Pulmonary/Thoracic Ronal Rajni, P.A. R06.00 [...] disease without esophagitis Kim Calvillo, [facility] 07/06/2021 K59.00 Constipation, unspecified Wildaiss luci Calvillo, [facility] 07/06/2021 R10.10 Upper abdominal pain, unspecifie d Kim Calvillo, [facility] 07/06/2021 R11.0 Nausea Kim soni, [facility] 06/26/2021 R06.00 Dyspnea, unspecified Ronal Knap p, P.A. 05/25/2021 R06.00 Dyspnea, unspecified Ronal Knap p, P.A. 03/31/2021 R13.12 Dysphagia, oropharyngeal phase D hernan Mcgovern MD 03/31/2021 R13.14 Dysphagia, pharyngoesophageal ph ase Pepe Mcgovern MD Plan of Treatment Future Appointment(s):* 11/30/2021 3:00 pm - Trice Hawkins at [facility] Pulmonary/Thoracic * 11/13/2021 10:30 am - Kim Luci KALIA Calvillo- at [facility] Gastroenterology Practice 08/29/2021 - Trice Hawkins* J45.20 Mild intermittent asthma, uncomplicated * * New Labs:* FVL/Sumit, Scheduled: 11/30/21 * Follow up:* Follow up in 3 months with sumit Functional Status Description No Information Available Mental Status Description No Information Available Referrals Refer to Dr Reason for Referral Status Appt Date Ronal Urban R.P.AYolanda. ASTHMA Closed 11/2020 [facility]-Pulmonary [address] [place], [place] [address] [phone] Pepe Mcgovern M.D. 85350 [phone] [facility]ology [address], [address] [place] [address] [phone]
--- OUTSIDE RECORDS SUMMARY | 2021-10-01 22:20 | CCD | Continuity of Care Document ---
Author Author Trish URBAN P.A. Organization Unknown Address [address] [place] [address] Phone [phone] Care Team Providers Care Epidemiologist Name Role Phone Jeannie Hernandez AUTM [phone] Diana Metzger AUTM AUTM Unavailable AUTM Unavailable [...] lb BMI (Body Mass Index) 39.3 kg/m2 [place] Body Weight 110 lb Weight 97.524 kg BSA (Body Surface Area) 1.97 m2 08/14/2021 10:33am BP Systolic 122 mmHg BP Diastolic 82 mmHg Height 62 inches 5'2" Weight 215.00 lb BMI (Body Mass Index) 39.3 kg/m2 [place] Body Weight 110 lb Weight 97.524 kg BSA (Body Surface Area) 1.97 m2 Results Test Acquired Date Facility Test Result H/L Range Note FVL/Sumit 08/29/2021 [employer] PD[employer]eport SEE IMAGE FVC-Pred 3.45 L FVC-Pre 2.76 L FVC-%Pred-Pre 79 L FVC-LLN 2.80 L Fev1-Pred 2.83 L Fev1-Pre 2.24 L Fev1-%Pred-Pre 78 L Fev1-LLN 2.28 L Fev6-Pred 3.40 L Fev6-Pre 2.76 L Fev6-%Pred-Pre 81 L Fev6-LLN 2.76 L Qox9mew-Icuo 82 % Xag9ypu-Pgg 81 % Ysr1nvo-%Pred-Pre 98 % Mxp9spf-YNC 72 % Rtd0xue-Wmcw 98 % Vzx7dyy-Syo 100 % Hbg4gqj-%Pred-Pre 101 % FEFMax-Pred 6.67 L/E/sec FEFMax-Pre 3.45 L/E/sec FEFMax-%Pred-Pre 51 L/E/sec FEFMax-LLN 5.06 L/E/sec Fij3586-Htth 3.02 L/E/sec Rsw9245-Qyc 2.29 L/E/sec Uyj7901-%Pred-Pre 76 L/E/sec Shu3366-JWF 1.85 L/E/sec ExpTime-Pre 6.47 sec Mbs6abq6-Bdao 84 % Pmv2rzf6-Yje 81 % Qaz4cmg0-%Pred-Pre 96 % Blo7trm9-GGC 75 % FVL/Sumit 05/25/2021 [employer] PDFReport SEE IMAGE FVC-Pred 3.47 L FVC-Pre 2.15 L FVC-%Pred-Pre 62 L FVC-LLN 2.82 L Fev1-Pred 2.85 L Fev1-Pre 1.77 L Fev1-%Pred-Pre 62 L Fev1-LLN 2.30 L Fev6-Pred 3.41 L Fev6-Pre 2.15 L Fev6-%Pred-Pre 63 L Fev6-LLN 2.77 L Ekf5glc-Zqdd 83 % Xuv0tsv-Hgi 82 % Kky6upi-%Pred-Pre 99 % Fti3lpj-JJC 73 % Tit2fwp-Bqtf 98 % Sgj0vgv-Tfr 100 % Gca0sml-%Pred-Pre 101 % FEFMax-Pred 6.68 L/E/sec FEFMax-Pre 3.32 L/E/sec FEFMax-%Pred-Pre 49 L/E/sec FEFMax-LLN 5.07 L/E/sec Gel9872-Blsf 3.05 L/E/sec Xkl9492-Yzy 1.96 L/E/sec Jyb1746-%Pred-Pre 64 L/E/sec Paz9282-JRH 1.89 L/E/sec ExpTime-Pre 6.28 sec Pzk6kqr6-Xodu 84 % Cbx8csw3-Rxz 82 % Lcx4rtq1-%Pred-Pre 97 % Tao6zle0-VIF 75 % Procedures Date Code Description Status 08/29/2021 57739 Office/Outpatient Established Lo w MDM 20-29 Min Completed 08/29/2021 66930 Spirometry Completed 08/14/2021 50500 Office/Outpatient Established Lo w MDM 20-29 Min Completed 07/18/2021 62010 Office/Outpatient Established Mo d MDM 30-39 Min Completed 07/06/2021 32500 Office/Outpatient Established Mo d MDM 30-39 Min Completed 07/06/2021 21000 Office/Outpatient Established Lo w MDM 20-29 Min Completed 07/06/2021 26163 Remove Impacted Cerumen Complete d 06/26/2021 53958 Office/Outpatient Established Mo d MDM 30-39 Min Completed 05/25/2021 21221 Office/Outpatient New Moderate M DM 45-59 Minutes Completed 05/25/2021 90736 Spirometry Completed 03/31/2021 53905 Dilate Esophagus Unguided Sound Or Bougie Completed 03/31/2021 02499 Endoscopy Upper GI Complex Diagn ostic Completed Medical Devices Description No Information Available Encounters Type Date Location Provider Dx Diagnosis Office Visit 08/29/2021 11:30a [facility] Pulmonary/Thoracic Ronal Urban, P.A. J45.20 Mild intermittent asthma, uncomplicated Office Visit 08/14/2021 10:30a [facility] Gastroenterology [facility] YOMAIRA Gracia K21.9 Gastro-esophageal reflux dis ease without esophagitis K59.00 Constipation, unspecified Office Visit 07/18/2021 4:00p [facility] Pulmonary/Thoracic Ronal Urban P.A. J45.20 Mild intermittent asthma, uncomplicated Office Visit 07/06/2021 10:00a [facility] Gastroenterology [facility] YOMAIRA Gracia K21.9 Gastro-esophageal reflux dis ease without esophagitis K59.00 Constipation, unspecified R10.10 Upper abdominal pain, unspec ified R11.0 Nausea Office Visit 07/06/2021 1:15p [facility] ENT Practice El Tamayo II, PA-C H60.8x3 Other otitis externa, bilateral H61.23 Impacted cerumen, bilateral Office Visit 06/26/2021 11:00a [facility] Pulmonary/Thoracic Ronal Urban, P.A. R06.00 Dyspnea, unspecified Office Visit 05/25/2021 1:00p [facility] Pulmonary/Thoracic Ronal Urban, P.A. R06.00 Dyspnea, unspecified Assessments Date Code Description Provider 08/29/2021 J45.20 Mild intermittent asthma, uncomp licated Ronal Urban, P.A. 08/14/2021 K21.9 Gastro-esophageal reflux disease without esophagitis YOMAIRA Red 08/14/2021 K59.00 Constipation, unspecified YOMAIRA Alegria 07/18/2021 J45.20 Mild intermittent asthma, uncomp licated Ronal Urban, P.A. 07/06/2021 H60.8x3 Other otitis externa, bilateral El Roni II, PA-C 07/06/2021 H61.23 Impacted cerumen, bilateral Morris as Roni II, PA-C 07/06/2021 K21.9 Gastro-esophageal reflux disease without esophagitis Kimjelly Calvillo, [facility] 07/06/2021 K59.00 Constipation, unspecified Meliss a [place] Pe[place], RPA-C 07/06/2021 R10.10 Upper abdominal pain, unspecifie d Kimjelly Peacockboakua, KALIA-C 07/06/2021 R11.0 Nausea Kim Glen Peacock boakua, RPA-C 06/26/2021 R06.00 Dyspnea, unspecified Ronal Knap p, P.A. 05/25/2021 R06.00 Dyspnea, unspecified Ronal Knap p, P.A. 03/31/2021 R13.12 Dysphagia, oropharyngeal phase D hernan Mcgovern MD 03/31/2021 R13.14 Dysphagia, pharyngoesophageal ph ase Pepe Mcgovern MD Plan of Treatment Future Appointment(s):* 11/30/2021 3:00 pm - Ronal Urban PMiguel at [facility] Pulmonary/Thoracic * 11/13/2021 10:30 am - YOMAIRA Red at [facility] Gastroenterology Practice 08/29/2021 - Trice Hawkins* J45.20 Mild intermittent asthma, uncomplicated * * New Labs:* FVL/Sumit, Scheduled: 11/30/21 * Follow up:* Follow up in 3 months with sumit Functional Status Description No Information Available Mental Status Description No Information Available Referrals Refer to Dr Reason for Referral Status Appt Date Ronal Urban R.PBogdan. ASTHMA Closed 11/[address] [facility]-Pulmonary [address] [place], [place] [id number] [phone] Pepe Mcgovern M.D. [phone] Closed [facility], Gastroenterology [address], [address] [place] [address] [phone]
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
--- OUTSIDE RECORDS SUMMARY | 2021-10-01 22:21 | CCD | Continuity of Care Document ---
Author Author Trish RAINEY PA Organization Unknown Address [address] [place] [address] Phone [phone] Care Team Providers [facility] Administrator Name Role Phone Jeannie Hernandez AUTM [phone] Diana Metzger AUTM [phone] AUTM Unavailable AUTM Unavailable Problems Active Problems Provider Date Temporomandibular joint disorder El Tamayo II, PA-C Onset : 07/18/2016 Otalgia lE Tamayo II, PA-C Onset: 07/18/2016 Allergic rhinitis [...] lb BMI (Body Mass Index) 39.9 kg/m2 [place] Body Weight 110 lb Weight 98.885 kg BSA (Body Surface Area) 1.98 m2 07/06/2021 1:16pm Height 62 inches 5'2" Weight 222.00 lb BMI (Body Mass Index) 40.6 kg/m2 [place] Body Weight 110 lb Weight 100.699 kg [...] L Fev6-%Pred-Pre 63 L Fev6-LLN 2.77 L Tpr5cxu-Mjrb 83 % Vrv7gny-Evf 82 % Pgi8juz-%Pred-Pre 99 % Lto9sgv-CLE 73 % Koy8mpy-Iijb 98 % Whj7iwp-Zya 100 % Ary9gba-%Pred-Pre 101 % FEFMax-Pred 6.68 L/E/sec FEFMax-Pre 3.32 L/E/sec FEFMax-%Pred-Pre 49 L/E/sec FEFMax-LLN 5.07 L/E/sec Kst1171-Mjba 3.05 L/E/sec Qxn3969-Qqi 1.96 L/E/sec Cyf0750-%Pred-Pre 64 L/E/sec Wai0987-RFT 1.89 L/E/sec ExpTime-Pre 6.28 sec Lky3fzl5-Gzsp 84 % Ckg1xyv5-Byr 82 % Isr5fet5-%Pred-Pre 97 % Dkh3arh9-YSG 75 % Procedures Date Code Description Status 07/06/2021 20176 Office/Outpatient Established Mo d MDM 30-39 Min Completed 07/06/2021 98561 Office/Outpatient Established Lo w MDM 20-29 Min Completed 07/06/2021 83434 Remove Impacted Cerumen Complete d 06/26/2021 73879 Office/Outpatient Established Mo d MDM 30-39 Min Completed 05/25/2021 26303 Office/Outpatient New Moderate M DM 45-59 Minutes Completed 05/25/2021 66837 Spirometry Completed 03/31/2021 81031 Dilate Esophagus Unguided Sound Or Bougie Completed 03/31/2021 78344 Endoscopy Upper GI Complex Diagn ostic Completed 02/13/2021 41443 Office/Outpatient New Moderate M DM 45-59 Minutes Completed Medical Devices Description No Information Available Encounters Type Date Location Provider Dx Diagnosis Office Visit 07/06/2021 10:00a [facility] Gastroenterology [facility] ctice YOMAIRA Red K21.9 Gastro-esophageal reflux dis ease without esophagitis K59.00 Constipation, unspecified R10.10 Upper abdominal pain, unspec ified R11.0 Nausea Office Visit 07/06/2021 1:15p [facility] El Tamayo II, PA-C H60.8x3 Other otitis externa, bilateral H61.23 Impacted cerumen, bilateral Office Visit 06/26/2021 11:00a [facility] Pulmonary/Thoracic JOHANN Hawkins R06.00 Dyspnea, unspecified Office Visit 05/25/2021 1:00p [facility] Pulmonary/Thoracic JOHANN Hawkins R06.00 Dyspnea, unspecified Office Visit 02/13/2021 11:45a [facility] YOMAIRA Red R13.10 Dysphagia, [...] 08/30/2021 2:30 pm - JOHANN Hawkins at [facility] Pulmonary/Thoracic * 08/14/2021 10:30 am - YOMAIRA Red at [facility] Gastroenterology Practice 07/18/2021 - JOHANN Hawkins* J45.20 Mild intermittent asthma, uncomplicated * * New Labs:* FVL/[place], Ordered: 07/18/21 * Follow up:* Follow up in 4-6 weeks with sumit Functional Status Description No Information Available Mental Status Description No Information Available Referrals Refer to Reason for Referral Status Appt Date Ronal Rainey R.P.A.-C. ASTHMA Closed 0711/2020 [facility]-P[facility] [address] [place], [place] [id number] [phone] Pepe Mcgovern M.D. [id number] [id number] Closed 1 [facility], Gastroenterology 826 [facility] [address] [place] [address] [phone] Tera Rangel MD Dysphagia Scheduled 02/13 826 [facility] [address] [place] [address] [phone]
--- OUTSIDE RECORDS SUMMARY | 2021-10-01 22:21 | CCD | Continuity of Care Document ---
Author Author Trish RAINEY PA Organization Unknown Address [address] [place] [address] Phone [phone] Care Team Providers Care Electric Motor Tester Assembler Name Role Phone Jeannie Hernandez AUTM [phone] Diana Metzger AUTM AUTM Unavailable AUTM Unavailable [...] 06/20/2018 Sensorineural hearing loss, bilateral El Roni TRAIQ PA-C Onset: 06/20/2018 Impacted cerumen El Tamayo [...] lb BMI (Body Mass Index) 39.9 kg/m2 [place] Body Weight 110 lb Weight 98.885 kg BSA (Body Surface Area) 1.98 m2 07/06/2021 1:16pm Height 62 inches 5'2" Weight 222.00 lb BMI (Body Mass Index) 40.6 kg/m2 [place] Body Weight 110 lb Weight 100.699 kg [...] L Fev6-%Pred-Pre 63 L Fev6-LLN 2.77 L Nzg7sfb-Rdzy 83 % Pct6vnq-Cyn 82 % Cng3jcn-%Pred-Pre 99 % Ucm9ytd-QWO 73 % Ptb7bsd-Vxtn 98 % Psk6pos-Zef 100 % Oar7wyk-%Pred-Pre 101 % FEFMax-Pred 6.68 L/E/sec FEFMax-Pre 3.32 L/E/sec FEFMax-%Pred-Pre 49 L/E/sec FEFMax-LLN 5.07 L/E/sec Nyv9812-Dhsu 3.05 L/E/sec Goh3524-Vux 1.96 L/E/sec Qxv7755-%Pred-Pre 64 L/E/sec Gtj2821-ICS 1.89 L/E/sec ExpTime-Pre 6.28 sec Ntf3oyr4-Rgci 84 % Thc9cbi6-Nss 82 % Grg9hpo1-%Pred-Pre 97 % Ing5eqg2-BAD 75 % Procedures Date Code Description Status 07/06/2021 26269 Office/Outpatient Established Mo d MDM 30-39 Min Completed 07/06/2021 74939 Office/Outpatient Established Lo w MDM 20-29 Min Completed 07/06/2021 85213 Remove Impacted Cerumen Complete d 06/26/2021 98913 Office/Outpatient Established Mo d MDM 30-39 Min Completed 05/25/2021 28173 Office/Outpatient New Moderate M DM 45-59 Minutes Completed 05/25/2021 92656 Spirometry Completed 03/31/2021 60367 Dilate Esophagus Unguided Sound Or Bougie Completed 03/31/2021 04988 Endoscopy Upper GI Complex Diagn ostic Completed 02/13/2021 09429 Office/Outpatient New Moderate M DM 45-59 Minutes Completed Medical Devices Description No Information Available Encounters Type Date Location Provider Dx Diagnosis Office Visit 07/06/2021 10:00a [facility] Gastroenterology [facility] ctice YOMAIRA Red K21.9 Gastro-esophageal reflux dis ease without esophagitis K59.00 Constipation, unspecified R10.10 Upper abdominal pain, unspec ified R11.0 Nausea Office Visit 07/06/2021 1:15p [facility] ENT Practice El Tamayo II, PA-C H60.8x3 Other otitis externa, bilateral H61.23 Impacted cerumen, bilateral Office Visit 06/26/2021 11:00a [facility] Pulmonary/Thoracic JOHANN Hawkins R06.00 Dyspnea, unspecified Office Visit 05/25/2021 1:00p [facility] Pulmonary/Thoracic JOHANN Hawkins R06.00 Dyspnea, unspecified Office Visit 02/13/2021 11:45a [facility]NT [facility] YOMAIRA Red [...] MD 02/13/2021 R13.10 Dysphagia, unspecified Kim Calvillo, AKLIA-C 02/13/2021 K21.9 Gastro-esophageal reflux disease without esophagitis Kim Calvillo, RPA-C 02/13/2021 R10.10 Upper abdominal pain, unspecifie d Kim Calvillo, RPA-C 02/13/2021 R11.0 Nausea Kim almanzarakua, TABC Plan of Treatment Future Appointment(s):* 08/30/2021 2:30 pm - JOHANN Hawkins at [facility] Pulmonary/Thoracic * 08/14/2021 10:30 am - YOMAIRA Red at [facility] Gastroenterology Practice 07/18/2021 - JOHANN Hawkins* J45.20 Mild intermittent asthma, uncomplicated * * New Labs:* FVL/[place], Ordered: 07/18/21 * Follow up:* Follow up in 4-6 weeks with sumit Functional Status Description No Information Available Mental Status Description No Information Available Referrals Refer to Reason for Referral Status Appt Date Ronal Rainey R.P.A.-C. ASTHMA Closed 0711/2020 [facility]-Pulmonary [address] [place], [place] [address] [phone] Pepe Mcgovern M.D. [id number] [phone] [phone] Closed 1 [facility], Gastroenterology 826 [facility] [address] [place] [address] [phone] Tera Rangel MD Dysphagia Scheduled 02/13 826 [facility] [address] [place] [address] [phone]
--- OUTSIDE RECORDS SUMMARY | 2021-10-01 22:21 | CCD | Continuity of Care Document ---
Author Author Trish GREENWOOD P.A.-C. Organization Unknown Address [address] [place] [address] Phone [phone] Care Team Providers Care Customer Relations Consultant Name Role Phone Diana Metzger AUTM [phone] Problems Active Problems Provider Date Wrist joint [...] Available Procedures Date Code Description Status 07/14/2021 60766 Office/Outpatient Established Mo d MDM 30-39 Min Completed 04/18/2021 85889 MRI Brain W/O Contrast Completed 04/18/2021 77151 MRI Brain W/O Contrast Completed Medical Devices Description No Information Available Encounters Type Date Location Provider Dx Diagnosis Office Visit 07/14/2021 10:45a Main office - [place] Hailey murillo P.A.-C. 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 07/14/2021 G44.329 Chronic post-traumatic headache, not intractable Hailey Greenwood, P.A.-C. 07/14/2021 M54.2 Cervicalgia Hailey Greenwood P.A.-C. 07/14/2021 M47.892 Other spondylosis, cervical fabiola on Hailey Greenwood P.A.-C. 07/14/2021 M26.633 Articular disc disorder of [...] - Hailey Greenwood P.A.-C. at Main office - [place] 07/14/2021 - Harvinder DelgadoA.-C.* R42 Dizziness and giddiness* Comments:* MRI of [...] M.D. Created [facility] [address] [place] [address] [phone] Amadou Fagan M.D. Created [facility] [address] [place] [address] [phone]"
--- OUTSIDE RECORDS SUMMARY | 2021-10-01 22:21 | CCD | Continuity of Care Document ---
Author Author Trish RAINEY PA Organization Unknown Address [address] [place] [address] Phone [phone] Care Team Providers Care Block Cuber Name Role Phone Jeannie Hernandez AUTM [phone] Diana Metzger AUTM AUTM Unavailable AUTM Unavailable [...] lb BMI (Body Mass Index) 39.9 kg/m2 [place] Body Weight 110 lb Weight 98.885 kg BSA (Body Surface Area) 1.98 m2 07/06/2021 1:16pm Height 62 inches 5'2" Weight 222.00 lb BMI (Body Mass Index) 40.6 kg/m2 [place] Body Weight 110 lb Weight 100.699 kg [...] L Fev6-%Pred-Pre 63 L Fev6-LLN 2.77 L Mwt2uoe-Fwkj 83 % Kiy1hjd-Znr 82 % Yvy8zlt-%Pred-Pre 99 % Wuf3uvn-CQO 73 % Teo0ysl-Qqtg 98 % Fws5wlz-Unx 100 % Moc1fir-%Pred-Pre 101 % FEFMax-Pred 6.68 L/E/sec FEFMax-Pre 3.32 L/E/sec FEFMax-%Pred-Pre 49 L/E/sec FEFMax-LLN 5.07 L/E/sec Hpi3728-Wgvz 3.05 L/E/sec Pyu2803-Gxk 1.96 L/E/sec Dvq2035-%Pred-Pre 64 L/E/sec Hcs4520-GPG 1.89 L/E/sec ExpTime-Pre 6.28 sec Ufr9hwv7-Ueyq 84 % Dsh1sfu7-Fkq 82 % Tis5gzk2-%Pred-Pre 97 % Oqz4eac1-HUS 75 % Procedures Date Code Description Status 07/06/2021 50620 Office/Outpatient Established Mo d MDM 30-39 Min Completed 07/06/2021 34614 Office/Outpatient Established Lo w MDM 20-29 Min Completed 07/06/2021 69018 Remove Impacted Cerumen Complete d 06/26/2021 52473 Office/Outpatient Established Mo d MDM 30-39 Min Completed 05/25/2021 19177 Office/Outpatient New Moderate M DM 45-59 Minutes Completed 05/25/2021 05428 Spirometry Completed 03/31/2021 24970 Dilate Esophagus Unguided Sound Or Bougie Completed 03/31/2021 14169 Endoscopy Upper GI Complex Diagn ostic Completed 02/13/2021 90654 Office/Outpatient New Moderate M DM 45-59 Minutes Completed Medical Devices Description No Information Available Encounters Type Date Location Provider Dx Diagnosis Office Visit 07/06/2021 10:00a [facility] Gastroenterology [facility] ctice YOMAIRA Red K21.9 Gastro-esophageal reflux dis ease without esophagitis K59.00 Constipation, unspecified R10.10 Upper abdominal pain, unspec ified R11.0 Nausea Office Visit 07/06/2021 1:15p [facility] E[facility] El Tamayo II, PA-C H60.8x3 Other otitis externa, bilateral H61.23 Impacted cerumen, bilateral Office Visit 06/26/2021 11:00a [facility] Pulmonary/Thoracic JOHANN Hawkins R06.00 Dyspnea, unspecified Office Visit 05/25/2021 1:00p [facility] Pulmonary/Thoracic JOHANN Hawkins R06.00 Dyspnea, unspecified Office Visit 02/13/2021 11:45a [facility] YOMAIRA Red R13.10 Dysphagia, [...] 08/30/2021 2:30 pm - JOHANN Hawkins at [facility] Pulmonary/Thoracic * 08/14/2021 10:30 am - YOMAIRA Red at [facility] Gastroenterology Practice 07/18/2021 - JOHANN Hawkins* J45.20 Mild intermittent asthma, uncomplicated * * New Labs:* FVL/[place], Ordered: 07/18/21 * Follow up:* Follow up in 4-6 weeks with sumit Functional Status Description No Information Available Mental Status Description No Information Available Referrals Refer to Reason for Referral Status Appt Date Ronal Rainey R.P.A.-C. ASTHMA Closed 0711/2020 [facility] [address] [place], [place] [address] [phone] Pepe Mcgovern M.D. [phone] [phone] Closed 1 [facility], Gastroenterology 826 [facility] [address] [place] [address] [phone] Tera Rangel MD Dysphagia Scheduled 02/13 826 [facility] [address] [place] [address] [phone]
--- OUTSIDE RECORDS SUMMARY | 2021-10-01 22:21 | CCD | Continuity of Care Document ---
Author Author Trish RAINEY PA Organization Unknown Address [address] [place] [address] Phone [phone] Care Team Providers Care General Passenger Agent Name Role Phone Jeannie Hernandez AUTM [phone] Diana Metzger AUTM [phone] AUTM Unavailable AUTM Unavailable Problems Active Problems [...] lb BMI (Body Mass Index) 39.9 kg/m2 [place] Body Weight 110 lb Weight 98.885 kg BSA (Body Surface Area) 1.98 m2 07/06/2021 1:16pm Height 62 inches 5'2" Weight 222.00 lb BMI (Body Mass Index) 40.6 kg/m2 [place] Body Weight 110 lb Weight 100.699 kg [...] L Fev6-%Pred-Pre 63 L Fev6-LLN 2.77 L Wxg2wst-Yeel 83 % Nin5pnq-Uok 82 % Nnj2hvm-%Pred-Pre 99 % Lul8ryw-CMU 73 % Ipw7rph-Segq 98 % Bex2llh-Odk 100 % Rpf0qos-%Pred-Pre 101 % FEFMax-Pred 6.68 L/E/sec FEFMax-Pre 3.32 L/E/sec FEFMax-%Pred-Pre 49 L/E/sec FEFMax-LLN 5.07 L/E/sec Jhk1150-Mkiz 3.05 L/E/sec Fwr6777-Sak 1.96 L/E/sec Jsy3175-%Pred-Pre 64 L/E/sec Qaz9337-CPK 1.89 L/E/sec ExpTime-Pre 6.28 sec Iiw4ncp4-Pqbq 84 % Qrg4hgs4-Vlv 82 % Izq5mam9-%Pred-Pre 97 % Xyi3nli6-DHL 75 % Procedures Date Code Description Status 07/06/2021 76349 Office/Outpatient Established Mo d MDM 30-39 Min Completed 07/06/2021 72199 Office/Outpatient Established Lo w MDM 20-29 Min Completed 07/06/2021 32201 Remove Impacted Cerumen Complete d 06/26/2021 61843 Office/Outpatient Established Mo d MDM 30-39 Min Completed 05/25/2021 83308 Office/Outpatient New Moderate M DM 45-59 Minutes Completed 05/25/2021 62358 Spirometry Completed 03/31/2021 40777 Dilate Esophagus Unguided Sound Or Bougie Completed 03/31/2021 14169 Endoscopy Upper GI Complex Diagn ostic Completed 02/13/2021 93269 Office/Outpatient New Moderate M DM 45-59 Minutes Completed Medical Devices Description No Information Available Encounters Type Date Location Provider Dx Diagnosis Office Visit 07/06/2021 10:00a [facility] Gastroenterology [facility] ctice YOMAIRA Red K21.9 Gastro-esophageal reflux dis ease without esophagitis K59.00 Constipation, unspecified R10.10 Upper abdominal pain, unspec ified R11.0 Nausea Office Visit 07/06/2021 1:15p [facility] ENT Practice El Tamayo II, PA-C H60.8x3 Other otitis externa, bilateral H61.23 Impacted cerumen, bilateral Office Visit 06/26/2021 11:00a [facility] Pulmonary/Thoracic JOHANN Hawkins R06.00 Dyspnea, unspecified Office Visit 05/25/2021 1:00p [facility] Pulmonary/Thoracic JOHANN Hawkins R06.00 Dyspnea, unspecified Office Visit 02/13/2021 11:45a [facility] ENT Practice YOMAIRA Red R13.10 Dysphagia, [...] 08/30/2021 2:30 pm - JOHANN Hawkins at [facility] Pulmonary/Thoracic * 08/14/2021 10:30 am - YOMAIRA Red at [facility] Gastroenterology Practice 07/18/2021 - JOHANN Hawkins* J45.20 Mild intermittent asthma, uncomplicated * * New Labs:* FVL/[place], Ordered: 07/18/21 * Follow up:* Follow up in 4-6 weeks with sumit Functional Status Description No Information Available Mental Status Description No Information Available Referrals Refer to Reason for Referral Status Appt Date Ronal Rainey R.P.A.-C. ASTHMA Closed 0711/2020 [facility]-P[facility] [address] [place], [place] [id number] [phone] Pepe Mcgovern M.D. [phone] [facility], Gastroenterology 826 [facility] [address] [place] [address] [phone] Tera Rangel MD Dysphagia Scheduled 02/13 826 [facility] [address] [place] [address] [phone]
--- OUTSIDE RECORDS SUMMARY | 2021-10-01 22:23 | CCD ---
Author Author [facility] Organization [facility] Address Unknown Phone Unavailable Support Name Relationship Address Phone LADONNA PINA Next Of Kin [address] [address] JENNIFER Next [place] [address] Ladonnanany Pina Next Of Kin Unknown Unavailable YOVANIMELLY Next Of Kin [address] [place] [address] Ronald Pina III Next Of Kin [address] [place] [address] Yassine RICKETTSP, Diana Next Of Kin [address] [place] [address] Mary MORENO Jeannie Next Of Kin [address] [place], [place] [id number] Rubens RPA-C, Yamilex Next Of Kin [address] [place] [address] Felix Butt MD Next Of Kin [address] [place] [address] Nishant RPA-C, Callie Next Of Kin [address] [place] [address] YOVANI, ROSA MARIA Next Of Kin [address] [place] [address] MILES, JACINTA Next Of Kin [address] [facility] [address] DONNA LUTZ Next Of Kin [address] [place] [address] CATALINO LUTZ Next Of Kin [address] [place] [address] NO, CONTACT Next Of Kin Unknown RONALD PINA Next Of Kin [address] [facility] [address] [place] [address] JOANNE RONALD Next Of Kin [address] [facility] [address] [place] [address] GWENDOLYN [place] [address] Unavailable PAPGlen [place] [address] Unavailable [place] [address] Unavailable FISH, SEBASTIAN Next Of Kin [address] [place] [address] ABY ALBRIGHT Next Of Kin [address] [facility] [address] [place] [address] LUCINA CARVAJAL Next Of Kin [address] [place] [address] JESSY Next Of Kin [address] [place] [address] JOE LAWRENCE Next Of Kin [address] [place] [address] ARTSJUG Next Of Kin [address] [place] [address] [facility] Next Of Kin Unknown Unavailab Karl Schaffer Next Of Kin [address] [place] [address] IVAN STORY Next Of Kin [address] [place] [address] TERRI ABRAHAM Next Of Kin [address] [place] [address] DISABLED Next Of Kin UN UN, UN UN Unavailable UE Next Of Kin Unknown Unavailable KATHLEEN ABEBE Next Of Kin [address] [place] [address] PAPITO CARVAJAL Next Of Kin [address] [place] [address] PAPITO CARVAJAL ECON [address] [place] [address] Unavailable Ronald Pina III E[address] [place] [address] [phone] SAIDA PINAARD [address] [address] [phone] Care Team Providers Care Lesson Instructor Name Role Phone Brea Butt MD Unavailable Unavailable Brea Butt MD Unavailable Unavailable Brea Butt MD Unavailable Unavailable Brea Butt MD Unavailable Unavailable Brea Butt MD Unavailable Unavailable Brea Butt MD Unavailable Unavailable Brea Butt MD Unavailable Unavailable Brea Butt MD Unavailable Unavailable Brea Butt MD Unavailable Unavailable Brea Butt MD Unavailable Unavailable Brea Butt MD Unavailable Unavailable Brea Butt MD Unavailable Unavailable Brea Butt MD Unavailable Unavailable Brea Butt MD Unavailable Unavailable Brea Butt MD Unavailable Unavailable Brea Butt MD Unavailable Unavailable Brea Butt MD Unavailable Unavailable Brea Butt MD Unavailable Unavailable Brea Butt MD Unavailable Unavailable Brea Butt MD Unavailable Unavailable Brea Butt MD Unavailable Unavailable Brea Butt MD Unavailable Unavailable Brea Butt MD Unavailable Unavailable Brea Butt MD Unavailable Unavailable Brea Butt MD Unavailable Unavailable Brea Butt MD Unavailable Unavailable Brea Butt MD Unavailable Unavailable Brea Butt MD Unavailable Unavailable Brea Butt MD Unavailable Unavailable Brea Butt MD Unavailable Unavailable Brea Butt MD Unavailable Unavailable Brea Butt MD Unavailable Unavailable Brea Butt MD Unavailable Unavailable Brea Butt MD Unavailable Unavailable Brea Butt MD Unavailable Unavailable Brea Butt MD Unavailable Unavailable Brea Butt MD Unavailable Unavailable Brea Butt MD Unavailable Unavailable Brea Butt MD Unavailable Unavailable Brea Butt MD Unavailable Unavailable Brea Butt MD Unavailable Unavailable Brea Butt MD Unavailable Unavailable Brea Butt MD Unavailable Unavailable Brea Butt MD Unavailable Unavailable Brea Butt MD Unavailable Unavailable Brea Butt MD Unavailable Unavailable Brea Butt MD Unavailable Unavailable Brea Butt MD Unavailable Unavailable Brea Butt MD Unavailable Unavailable Brea Butt MD Unavailable Unavailable Brea Butt MD Unavailable Unavailable Brea Butt MD Unavailable Unavailable Brea Butt MD Unavailable Unavailable Brea Butt MD Unavailable Unavailable Brea Butt MD Unavailable Unavailable Brea Butt MD Unavailable Unavailable Brea Butt MD Unavailable Unavailable Brea Butt MD Unavailable Unavailable Brea Butt MD Unavailable Unavailable Brea Butt MD Unavailable Unavailable Brea Butt MD Unavailable Unavailable Brea Butt MD Unavailable Unavailable Brea Butt MD Unavailable Unavailable Brea Butt MD Unavailable Unavailable Brea Butt MD Unavailable Unavailable Brea Butt MD Unavailable Unavailable Brea Butt MD Unavailable Unavailable Brea Butt MD Unavailable Unavailable Brea Butt MD Unavailable Unavailable Brea Butt MD Unavailable Unavailable Brea Butt MD Unavailable Unavailable Brea Butt MD Unavailable Unavailable Brea Butt MD Unavailable Unavailable Brea Butt MD Unavailable Unavailable Brea Butt MD Unavailable Unavailable Brea Butt MD Unavailable Unavailable Brea Butt MD Unavailable Unavailable Brea Butt MD Unavailable Unavailable Brea Butt MD Unavailable Unavailable Brea Btut MD Unavailable Unavailable Daquan, Brea Washington MD Unavailable Unavailable Brea Butt MD Unavailable Unavailable Daquan, Brea Washington MD Unavailable Unavailable Brea Butt MD Unavailable Unavailable Brea Butt MD Unavailable Unavailable Brea Butt MD Unavailable Unavailable Daquan, Brea Washington MD Unavailable Unavailable Brea Butt MD Unavailable Unavailable Daquan, Brea Washington MD Unavailable Unavailable Butt, Brea Washington MD Unavailable Unavailable Butt, Brea Washington MD Unavailable Unavailable Butt, Brea Washington MD Unavailable Unavailable Butt, Brea Washington MD Unavailable Unavailable Kocan, J Pricilla BUSINESS CONSULT Unavailable Unavailable Kocan, J Pricilla BUSINESS CONSULT Unavailable Unavailable Kocan, J Pricilla BUSINESS CONSULT Unavailable Unavailable Kocan, J Pricilla BUSINESS CONSULT Unavailable Unavailable Kocan, J Pricilla BUSINESS CONSULT Unavailable Unavailable Kocan, J Pricilla BUSINESS CONSULT Unavailable Unavailable Kocan, J Pricilla BUSINESS CONSULT Unavailable Unavailable Kocan, J Pricilla BUSINESS CONSULT Unavailable Unavailable Kocan, J Pricilla BUSINESS CONSULT Unavailable Unavailable Kocan, J Pricilla BUSINESS CONSULT Unavailable Unavailable Kocan, J Pricilla BUSINESS CONSULT Unavailable Unavailable Kocan, J Pricilla BUSINESS CONSULT Unavailable Unavailable Kocan, J Pricilla BUSINESS CONSULT Unavailable Unavailable Diana Metzger BOROUGH COORDINATOR BOROUGH COORDINATOR Unavailable Unavailable Wade, R Ray BLOCK PLACER Unavailable Unavailable Wade, R Ray BLOCK PLACER Unavailable Unavailable Wade, R Ray BLOCK PLACER Unavailable Unavailable Charlebois, A Kim RPA C Unavailable Unavailable Charlebois, A Kim RPA C Unavailable Unavailable Charlebois, A Kim RPA C Unavailable Unavailable Charlebois, A Kim RPA C Unavailable Unavailable Charlebois, A Kim RPA C Unavailable Unavailable Charlebois, A Kim RPA C Unavailable Unavailable Charlebois, A Kim RPA C Unavailable Unavailable Charlebois, A Kim RPA C Unavailable Unavailable Charlebois, A Kim RPA C Unavailable Unavailable Charlebois, A Kim RPA C Unavailable Unavailable Charlebois, A Kim RPA C Unavailable Unavailable Charlebois, A Kim RPA C Unavailable Unavailable Charlebois, A Kim RPA C Unavailable Unavailable Charlebois, A Kim RPA C Unavailable Unavailable Charlebois, A Kim RPA C Unavailable Unavailable Charlebois, A Kim RPA C Unavailable Unavailable Charlebois, A Kim RPA C Unavailable Unavailable Charlebois, A Kim RPA C Unavailable Unavailable Charlebois, A Kim RPA C Unavailable Unavailable Charlebois, A Kmi RPA C Unavailable Unavailable Charlebois, A Kim RPA C Unavailable Unavailable Charlebois, A Kim RPA C Unavailable Unavailable Charlebois, A Kim RPA C Unavailable Unavailable Charlebois, A Kim RPA C Unavailable Unavailable Charlebois, A Kim RPA C Unavailable Unavailable Charlebois, A Kim RPA C Unavailable Unavailable Charlebois, A Kim RPA C Unavailable Unavailable Charlebois, A Kim RPA C Unavailable Unavailable Charlebois, A Kim RPA C Unavailable Unavailable Charlebois, A Kim RPA C Unavailable Unavailable Charlebois, A Kim RPA C Unavailable Unavailable [place]le[place]is, A Kim RPA C Unavailable Unavailable Charlebois, A Kim RPA C Unavailable Unavailable MAJAK, R AUDREY DPM Unavailable [...] MAJAK, R AUDREY DPM Unavailable Unavailable MAJAK, Pascale VENTURA DPM Unavailable Unavailable MAJAK, R AUDREY DPM Unavailable Unavailable MAJAK, R AUDREY DPM Unavailable Unavailable MAJAK, R AUDREY DPM Unavailable Unavailable Short, Alcides Unavailable Unavailable Short, Alcides Unavailable Unavailable Short, Alcides Unavailable Unavailable Short, Alcides Unavailable Unavailable Short, Alcides Unavailable Unavailable Short, Alcides Unavailable Unavailable Short, Alcides Unavailable Unavailable Short, Alcides Unavailable Unavailable Short, Alcdies Unavailable Unavailable Short, Alcides Unavailable Unavailable Short, [...] Alcides Unavailable Unavailable Short, Alcides Unavailable Unavailable Trickey, J Hailey PA Unavailable [...] Unavailable Trickey, J Hailey PA Unavailable Unavailable Fernando Puri PA Unavailable Unavailable Fernando Puri PA Unavailable Unavailable Fernando Puri PA Unavailable Unavailable Fernando Puri PA Unavailable Unavailable Fernando Puri PA Unavailable Unavailable Fernando Puri PA Unavailable Unavailable Fernando Puri PA Unavailable Unavailable Fernando Puri PA Unavailable Unavailable Fernando Puri PA Unavailable Unavailable Fernando Puri PA Unavailable Unavailable Fernando Puri PA Unavailable Unavailable Fernando Puri PA Unavailable Unavailable Fernando Puri PA Unavailable Unavailable Fernando Puri PA Unavailable Unavailable Fernando Puri PA Unavailable Unavailable Fernando Puri PA Unavailable Unavailable Fernando Puri PA Unavailable Unavailable Fernando Puri PA Unavailable Unavailable Fernando Puri PA Unavailable Unavailable Fernando Puri PA Unavailable Unavailable Fernando Puri PA Unavailable Unavailable Fernando Puri PA Unavailable Unavailable Puri, M Barratt PA Unavailable Unavailable Fernando Puri Unavailable Unavailable Fernando Puri Unavailable Unavailable Fernando Puri Unavailable Unavailable Fernando Puri Unavailable Unavailable Fernando Puri Unavailable Unavailable Fernando Puri Unavailable Unavailable HAWKINSCAMILA MD Unavailable Unavailable HAWKINSACMILA MD Unavailable Unavailable HAWKINSCAMIAL MD Unavailable Unavailable HAWKINSCAMILA MD Unavailable Unavailable HAWKINSCAMILA MD Unavailable Unavailable HAWKINSCAMILA MD Unavailable Unavailable HAWKINSCAMILA MD Unavailable Unavailable HAWKINSCAMILA MD Unavailable Unavailable HAWKINS, CAMILA MD Unavailable Unavailable HAWKINSCAMILA MD Unavailable Unavailable HAWKINS, CAMILA MD Unavailable [...] Unavailable HAWKINS, CAMILA MD Unavailable Unavailable HAWKINS, CAMIAL MD Unavailable Unavailable HAWKINS, CAMILA MD Unavailable Unavailable HAWKINS, CAMILA MD Unavailable Unavailable HAWKINS, CAMILA MD Unavailable Unavailable HAWKINS, CAMILA MD Unavailable Unavailable HAWKINS, CAMILA MD Unavailable Unavailable Yassine, A Diana BOROUGH COORDINATOR Unavailable Unavailable Yassine, A Diana BOROUGH COORDINATOR Unavailable Unavailable Yassine, A Diana BOROUGH COORDINATOR Unavailable Unavailable Yassine, A Diana BOROUGH COORDINATOR Unavailable Unavailable Yassine, A Diana BOROUGH COORDINATOR Unavailable Unavailable Yassine, A Diana BOROUGH COORDINATOR Unavailable Unavailable Yassine, A Diana BOROUGH COORDINATOR Unavailable Unavailable Yassine, A Diana BOROUGH COORDINATOR Unavailable Unavailable Yassine, A Diana BOROUGH COORDINATOR Unavailable Unavailable Yassine, A Diana BOROUGH COORDINATOR Unavailable Unavailable Yassine, A Diana BOROUGH COORDINATOR Unavailable Unavailable Yassine, A Diana BOROUGH COORDINATOR Unavailable Unavailable Yassine, A Diana BOROUGH COORDINATOR Unavailable Unavailable Yassine, A Diana BOROUGH COORDINATOR Unavailable Unavailable Yassine, A Diana BOROUGH COORDINATOR Unavailable Unavailable Yassine, A Diana BOROUGH COORDINATOR Unavailable Unavailable Yassine, A Diana BOROUGH COORDINATOR Unavailable Unavailable Yassine, A Diana BOROUGH COORDINATOR Unavailable Unavailable Yassine, A Diana BOROUGH COORDINATOR Unavailable Unavailable Yassine, A Diana BOROUGH COORDINATOR Unavailable Unavailable Yassine, A Diana BOROUGH COORDINATOR Unavailable Unavailable Yassine, A Diana BOROUGH COORDINATOR Unavailable Unavailable Yassine, A Diana BOROUGH COORDINATOR Unavailable Unavailable Yassine, A Diana BOROUGH COORDINATOR Unavailable Unavailable Yassine, A Diana BOROUGH COORDINATOR Unavailable Unavailable Yassine, A Diana BOROUGH COORDINATOR Unavailable Unavailable Yassine, A Diana BOROUGH COORDINATOR Unavailable Unavailable Yassine, A Diana BOROUGH COORDINATOR Unavailable Unavailable Yassine, A Diana BOROUGH COORDINATOR Unavailable Unavailable Yassine, A Diana BOROUGH COORDINATOR Unavailable Unavailable Yassine, A Diana BOROUGH COORDINATOR Unavailable Unavailable RAINEY, M JEMMA PA Unavailable Unavailable RAINEY, M JEMMA PA Unavailable Unavailable RAINEY, M JEMMA PA Unavailable Unavailable RAINEY, M JEMMA PA Unavailable Unavailable RAINEY, M JEMMA PA Unavailable Unavailable RAINEY, M JEMMA PA Unavailable Unavailable RAINEY, M JEMMA PA Unavailable Unavailable RAINEY, M JEMMA PA Unavailable Unavailable RAINEY, M JEMMA PA Unavailable Unavailable RAINEY, M JEMMA PA Unavailable Unavailable RAINEY, M JEMMA PA Unavailable Unavailable RAINEY, M JEMMA PA Unavailable Unavailable RAINEY, M JEMMA PA Unavailable Unavailable RAINEY, M JEMMA PA Unavailable Unavailable RAINEY, M JEMMA PA Unavailable Unavailable RAINEY, M JEMMA PA Unavailable Unavailable RAINEY, M JEMMA PA Unavailable Unavailable RAINEY, M JEMMA PA Unavailable Unavailable RAINEY, M JEMMA PA Unavailable Unavailable RAINEY, M JEMMA PA Unavailable Unavailable RAINEY, M JEMMA PA Unavailable Unavailable RAINEY, M JEMMA PA Unavailable Unavailable RAINEY, M JEMMA PA Unavailable Unavailable RAINEY, M JEMMA PA Unavailable Unavailable RAINEY, M JEMMA PA Unavailable Unavailable RAINEY, M JEMMA PA Unavailable Unavailable RAINEY, M JEMMA PA Unavailable Unavailable RAINEY, M JEMMA PA Unavailable Unavailable RAINEY, M JEMMA PA Unavailable Unavailable RAINEY, M JEMMA PA Unavailable Unavailable RAINEY, M JEMMA PA Unavailable Unavailable RAINEY, M JEMMA PA Unavailable Unavailable RAINEY, M JEMMA PA Unavailable Unavailable RAINEY, M JEMMA PA Unavailable Unavailable RAINEY, M JEMMA PA Unavailable Unavailable Roni II, El PA [...] Unavailable Roni II, El PA Unavailable Unavailable Griffith, Bovina Malu Unavailable Unavailable Griffith, Bovina Malu Unavailable Unavailable Griffith, Bovina Malu Unavailable Unavailable Griffith, Bovina Malu Unavailable Unavailable Griffith, Bovina Malu Unavailable Unavailable Griffith, Bovina Malu Unavailable Unavailable Griffith, Bovina Malu Unavailable Unavailable Griffith, Bovina Malu Unavailable Unavailable Griffith, Bovina Malu Unavailable Unavailable Griffith, Bovina Malu Unavailable Unavailable Griffith, Bovina Malu Unavailable Unavailable Griffith, Bovina Malu Unavailable Unavailable Griffith, Bovina Malu Unavailable Unavailable SHREYAS SHIELDS MD Unavailable Unavailable ALYSONSHREYAS MD Unavailable Unavailable ALYSONSHREYAS MD Unavailable Unavailable ALYSONSHREYAS MD Unavailable Unavailable ALYSONSHREYAS MD Unavailable Unavailable ALYSONSHREYAS MD Unavailable Unavailable ALYSONSHREYAS MD Unavailable Unavailable ALYSONSHREYAS MD Unavailable Unavailable ALYSONSHREYAS MD Unavailable Unavailable ALYSONSHREYAS MD Unavailable Unavailable ALYSONSHREYAS MD Unavailable Unavailable ALYSONSHREYAS MD Unavailable Unavailable ALYSONSHREYAS MD Unavailable Unavailable ALYSONSHREYAS MD Unavailable Unavailable SHREYAS SHIELDS MD Unavailable Unavailable ALYSONSHREYAS MD Unavailable Unavailable ALYSONSHREYAS MD Unavailable Unavailable ALYSONSHREYAS MD Unavailable Unavailable ALYSONSHREYAS MD Unavailable Unavailable ALYSONSHREYAS MD Unavailable Unavailable ALYSONSHREYAS MD Unavailable Unavailable ALYSONSHREYAS MD Unavailable Unavailable ALYSONSHREYAS MD Unavailable Unavailable ALYSONSHREYAS MD Unavailable Unavailable ALYSONSHREYAS MD Unavailable Unavailable ALYSONSHREYAS MD Unavailable Unavailable ALYSONSHREYAS MD Unavailable Unavailable ALYSONSHREYAS MD Unavailable Unavailable ALYSONSHREYAS MD Unavailable Unavailable ALYSONSHREYAS MD Unavailable Unavailable ALYSONSHREYAS MD Unavailable Unavailable ALYSONSHREYAS MD Unavailable Unavailable ALYSONSHREYAS MD Unavailable Unavailable SHREYAS SHIELDS MD Unavailable Unavailable ALYSONSHREYAS MD Unavailable Unavailable ALYSONSHREYAS MD Unavailable Unavailable ALYSONSHREYAS MD Unavailable Unavailable ALYSONSHREYAS MD Unavailable Unavailable ALYSONSHREYAS MD Unavailable Unavailable ALYSONSHREYAS MD Unavailable Unavailable ALYSON, SHREYAS CALDERON Unavailable Unavailable [...] Unavailable Unavailable ALYSON, SHREYAS CALDERON Unavailable Unavailable [place], A Diana BOROUGH COORDINATOR Unavailable Unavailable [place], A Diana BOROUGH COORDINATOR Unavailable Unavailable [place], A Diana BOROUGH COORDINATOR Unavailable Unavailable [place], A Diana BOROUGH COORDINATOR Unavailable Unavailable [place], A Diana BOROUGH COORDINATOR Unavailable Unavailable [place], A Diana BOROUGH COORDINATOR Unavailable Unavailable [place], A Diana BOROUGH COORDINATOR Unavailable Unavailable [place], A Diana BOROUGH COORDINATOR Unavailable Unavailable [place], A Diana BOROUGH COORDINATOR Unavailable Unavailable [place], A Diana BOROUGH COORDINATOR Unavailable Unavailable [place], A Diana BOROUGH COORDINATOR Unavailable Unavailable [place], A Diana BOROUGH COORDINATOR Unavailable Unavailable [place], A Diana BOROUGH COORDINATOR Unavailable Unavailable [place], A Diana BOROUGH COORDINATOR Unavailable Unavailable [place], A Diana BOROUGH COORDINATOR Unavailable Unavailable [place], A Diana BOROUGH COORDINATOR Unavailable Unavailable [place], A Diana BOROUGH COORDINATOR Unavailable Unavailable [place], A Diana BOROUGH COORDINATOR Unavailable Unavailable [place], A Diana BOROUGH COORDINATOR Unavailable Unavailable [place], A Diana BOROUGH COORDINATOR Unavailable Unavailable [place], A Diana BOROUGH COORDINATOR Unavailable Unavailable [place], A Diana BOROUGH COORDINATOR Unavailable Unavailable [place], A Diana BOROUGH COORDINATOR Unavailable Unavailable [place], A Diana BOROUGH COORDINATOR Unavailable Unavailable [place], A Diana BOROUGH COORDINATOR Unavailable Unavailable [place], A Diana BOROUGH COORDINATOR Unavailable Unavailable [place], A Diana BOROUGH COORDINATOR Unavailable Unavailable [place], A Diana BOROUGH COORDINATOR Unavailable Unavailable [place], A Diana BOROUGH COORDINATOR Unavailable Unavailable [place], A Diana BOROUGH COORDINATOR Unavailable Unavailable [place], A Diana BOROUGH COORDINATOR Unavailable Unavailable Miguel Ángel Almanza Unavailable Megan Vasquez MD Unavailable Unavailable Megan Vasquez MD Unavailable Unavailable Megan Vasquez MD Unavailable Unavailable Megan Vasquez MD Unavailable Unavailable Megan Vasquez MD Unavailable Unavailable Megan Vasquez MD Unavailable Unavailable HenningMegan MD Unavailable Unavailable ChristinaMegan MD Unavailable Unavailable HenningMegan MD Unavailable Unavailable HenningMegan MD Unavailable Unavailable HenningMegan MD Unavailable Unavailable HenningMegan MD Unavailable Unavailable ChristinaMegan MD Unavailable Unavailable HenningMegan MD Unavailable Unavailable HenningMegan MD Unavailable Unavailable ChristinaMegan MD Unavailable Unavailable ChristinaMegan MD Unavailable Unavailable HenningMegan MD Unavailable Unavailable ChristinaMegan MD Unavailable Unavailable ChristinaMegan MD Unavailable Unavailable ChristinaMegan MD Unavailable Unavailable ChristinaMegan MD Unavailable Unavailable ChristinaMegan MD Unavailable Unavailable ChristinaMegan MD Unavailable Unavailable HenningMegan MD Unavailable Unavailable ChristinaMegan MD Unavailable Unavailable HenningMegna MD Unavailable Unavailable ChristinaMegan MD Unavailable Unavailable HenningMegan MD Unavailable Unavailable HenningMegan MD Unavailable Unavailable ChristinaMegan MD Unavailable Unavailable ChristinaMegan MD Unavailable Unavailable ChristinaMegan MD Unavailable Unavailable HenningMegan MD Unavailable Unavailable HenningMegan MD Unavailable Unavailable ChristinaMegan MD Unavailable Unavailable HenningMegan MD Unavailable Unavailable ChristinaMegan MD Unavailable Unavailable Dillard, C Callie PA Unavailable [...] Unavailable Dillard, C Callie PA Unavailable Unavailable Fran, K Isidra PMH-BLOCK PLACER Unavailable Unavailable [place], K Isidra PMH-BLOCK PLACER Unavailable Unavailable [place], K Isidra PMH-BLOCK PLACER Unavailable Unavailable Fran, K Isidra PMH-BLOCK PLACER Unavailable Unavailable [place], K Isidra PMH-BLOCK PLACER Unavailable Unavailable [place], K Isidra PMH-BLOCK PLACER Unavailable Unavailable [place], K Isidra PMH-BLOCK PLACER Unavailable Unavailable [place], K Isidra PMH-BLOCK PLACER Unavailable Unavailable Re-disclosure Warning The records that [...] is protected by Article 27-F of the [facility] Public Health law. If you continue you may have access to information: Regarding HIV / AIDS; Provided by facilities licensed or operated by the [facility] Office of Mental Health; or Provided by the [facility] Office for People With Developmental Disabilities. If such information is present, then the following [facility] mandated warning applies: This information has [...] law may result in a fine or penitentiary sentence or both. A general authorization for the release of medical or other information is NOT sufficient authorization for further disc losure. Family History Family Member Name Family Member Gender Family Member Status Date o f Status Description Data Source(s) Unknown Unknown Problem [facility] ([facility], ) Type unknown Encounters Encounter Providers Location Date Indications Data Source(s ) [facility] 02:00:00 AM EDT - 09/22/2021 02:00:00 AM EDT [facility] ([facility]) Attender: Ray Wade NP 09/22/2021 12:00:00 AM EDT [facility] ([facility]) Outpatient Attender: AUDREY MELGAR [facility] 08/26 03:00:00 PM EDT [facility] ([facility] Outpatient Attender: SHREYAS SHIELDS MDReferrer: SHREYAS SHIELDS MD SJGeorgie .[email or web address].[email or web address] 09/15/2021 02:09:11 PM EDT - 09/15/2021 03:19:08 PM EDT [facility] Outpatient Attender: SHREYAS SHIELDS MDReferrer: SHREYAS VILLALOBOS .[email or web address] 09/15/2021 02:07:34 PM EDT - 09/15/2021 03:18:59 PM EDT [facility] Outpatient Attender: JEMMA Rangel/[place]/Jerman/Rein dl 08/29/2021 11:30:00 AM EDT [facility] ([facility], ) Outpatient Attender: Hailey WILLS [facility] 08/15/2021 02:15:00 PM EDT [facility] ([facility], ) Outpatient Attender: Kim Vinson Claire/[place]/A ngel/Reindl 08/14/2021 10:30:00 AM EDT [facility] ([facility], ) Outpatient Attender: JEMMA Rangel/[place]/Jerman/Rein dl 07/18/2021 04:00:00 PM EDT [facility] ([facility], ) Outpatient Attender: Hailey WILLS [facility] 07/14/2021 10:45:00 AM EDT [facility] ([facility]) Outpatient Attender: Ray Wade NP [facility] 07/13/2021 02:00:00 AM EDT - 07/13/2021 02:00:00 AM EDT [facility] ([facility]) Attender: Ray Wade NP 07/13/2021 12:00:00 AM EDT [facility] ([facility] [facility]) Outpatient Attender: El Arangoang/[place]/Jerman/Rein dl 07/06/2021 01:15:00 PM EDT MEDENT ([facility], ) Outpatient Attender: Kim Vinson Claire/[place]/A jamesel/Reindl 07/06/2021 10:00:00 AM EDT MEDENT ([facility]ie [facility]) Outpatient Attender: JEMMA Rangel/[place]/Jerman/Rein dl 06/26/2021 11:00:00 AM EDT MEDENT ([facility] Lisette richard[facility]) Diana Metzger [facility]: [address] [place] [address], Ph. Attender: Diana Metzger [facility] 06/21/2021 12:00:00 AM EDT [facility] ([facility]) Outpatient Attender: SHREYAS VILLALOBOS.ARIELLA.EVANGELIST 12:00:00 AM EDT - 06/16/2021 02:05:02 PM EDT [facility] Diana Metzger [facility]: [address] [place] [address], Ph. Attender: Diana Metzger [facility] Medical 06/16/2021 12:00:00 AM EDT MAR[facility] ([facility]) Diana Metzger [facility]: [address] [place] [address], Ph. Attender: Diana Metzger [facility] 06/16/2021 12:00:00 AM EDT [facility] ([facility]) Outpatient Attender: JEMMA Rangel/[place]/Jerman/Rein dl 05/25/2021 01:00:00 PM EDT MEDENT ([facility]ette [facility]) Brief Individual Psychotherapy - 30 min Attender: Miguel Ángel Almanza [facility] 05/19/2021 02:00:00 AM EDT - 05/19/2021 02:00:00 AM EDT Accumedic ([facility]) Attender: Miguel Ángel Almanza 05/19/2021 12:00:00 AM EDT Accumedic ([facility]) Outpatient Attender: AUDREY MELGAR [facility] 04/25 11:00:00 AM EDT MEDENT ([facility] Extended Individual Psychotherapy - 45 min Attender: [facility] 05/05/2021 02:00:00 AM EDT - 05/05/2021 02:00:00 AM EDT [facility] ([facility]) Attender: [facility] 05/05/2021 12:00:00 AM EDT [facility] ([facility]) Outpatient Att[facility]: [facility] 05/02/2021 02:00:00 AM EDT - 05/02/2021 02:00:00 AM EDT [facility] ([facility]) Attender: [facility]id[facility] Peters [facility] 05/02/2021 12: 00:00 AM EDT [facility] ([facility]) Extended Individual Psychotherapy - 45 min Attender: [facility] 04/17/2021 10:00:00 AM EDT - 04/17/2021 10:00:00 AM EDT [facility] ([facility]) Attender: [facility] 04/17/2021 12:00:00 AM EDT [facility] ([facility]) Outpatient Referrer: SHREYAS SHIELDS MD SJP.CT-SJP.[facility] 03/28/2021 12:00:00 AM EDT [facility] Felix Butt MD: [address] [place] [phone], Ph. Attender: Felix Butt MD [facility] Medical 03/28/2021 12:00:00 AM EDT MAR[facility]E ([facility]) Felix Butt MD: [address] [place] [phone], Ph. Attender: Felix Butt MD [facility] Medical 03/28/2021 12:00:00 AM EDT MAR[facility]E ([facility]) Felix Butt MD: [address] [place] [address], Ph. Attender: Felix Butt MD [facility] Medical 03/28/2021 12:00:00 AM EDT MAR[facility]E ([facility]) Outpatient Referrer: SHREYAS VILLALOBOS.EVANGELIST-SJP.EVANGELIST 03/24/2021 12:13:45 PM EDT [facility] Outpatient Attender: SHREYAS DAVISEVANGELIST-SJP.EVANGELIST 12:48:16 PM EDT - 03/17/2021 01:40:34 PM EDT [facility] Outpatient Attender: AUDREY MELGAR [facility] 02/24 08:45:00 AM EDT MEDENT ([facility] Outpatient Attender: Isidra Peters [facility] 03/16/2021 03:30:00 AM EDT - 03/16/2021 03:30:00 AM EDT [facility] ([facility]) Attender: Isidra Peters [facility] 03/16/2021 12: 00:00 AM EDT [facility] ([facility]) Extended Individual Psychotherapy - 45 min [facility] 03/14/2021 11:00:00 AM EDT - 03/14/2021 11:00:00 AM EDT [facility] ([facility]) Attender: Miguel Ángel Almanza 03/14/2021 12:00:00 AM EDT [facility] ([facility]) NELIA Frazier-: [address] [place] [address], Ph. Attender: Diana Yassine [facility] 03/13/2021 12:00:00 AM EDT D[place] ([facility]) [facility] [address], [place] [address], Ph. Attender: Diana Metzger [facility] 03/13/2021 12:00:00 AM EDT [place] ([facility]) [facility] [address], [place] [address], Ph. Attender: Diana Metzger [facility] 03/13/2021 12:00:00 AM EDT [place] ([facility]) [facility]: [address], [place] [address], Ph. Attender: Diana Metzger [facility] 03/13/2021 12:00:00 AM EDT [place] ([facility]) FARHANA StoddardC: [address], [place] [address], Ph. Attender: Malu Griffith [facility] Medical 03/01/2021 12:00:00 AM EDT MAR[facility]E ([facility]) FARHANA StoddardC: [address], [place] [address], Ph. Attender: Malu Griffith [facility] Medical 03/01/2021 12:00:00 AM EDT [facility] ([facility]) FARHANA StoddardC: [address], [place] [address], Ph. Attender: Maul Griffith [facility] Medical 03/01/2021 12:00:00 AM EDT [facility] ([facility]) NELIA Stoddard-C: [address] [place] [address], Ph. Attender: Malu Griffith [facility] Medical 03/01/2021 12:00:00 AM EDT [facility]E ([facility]) NELIA Stoddard-C: [address] [place] [address], Ph. Attender: Malu Griffith [facility] Medical 03/01/2021 12:00:00 AM EDT [place] ([facility]) Extended Individual Psychotherapy - 45 min Attender: [facility] Cami [facility] 02/24/2021 11:00:00 AM EDT - 02/24/2021 11:00:00 AM EDT [facility] ([facility]) Attender: Miguel Ángel Almanza 02/24/2021 12:00:00 AM EDT [facility] ([facility]) Outpatient Attender: Riley WILLS Physical Therapy 02:45:00 PM EDT MEDENT ([facility]) Outpatient Attender: Marielena Vasquez MDReferrer: Diana PICKENS 02/15/2021 02:12:51 PM EDT [facility] Recurring Patient Referrer: Callie WILLS 02/14/2021 0 1:14:37 PM EDT [facility] Outpatient Attender: Kim Rangel/Jayde/[place]/Shaniqua 02/13/2021 11:45:00 AM EDT MEDENT ([facility]) NELIA Fraizer-BC: [address] [place] [address], Ph. Attender: Diana PICKENS [facility] Medical 02/08/2021 12:00:00 AM EDT [facility] ([facility]) [facility]: [address], [place] [address], Ph. Attender: Diana Metzger [facility] 02/08/2021 12:00:00 AM EDT [facility] ([facility]) [facility] [address], [place] [address], Ph. Attender: Diana Metzger [facility] 02/08/2021 12:00:00 AM EDT [place] ([facility]) FARHANA Frazier: [address], [place] [address], Ph. Attender: Diana Metzger [facility] Medical 02/08/2021 12:00:00 AM EDT [place] ([facility]) FARHANA Frazier: [address], [place] [address], Ph. Attender: Diana Metzger [facility] Medical 02/08/2021 12:00:00 AM EDT [place] ([facility]) JAMARCUS FrazierPEssie: [address], [place] [address], Ph. Attender: Diana Metzger [facility] Medical 02/08/2021 12:00:00 AM EDT MAR[facility]E ([facility]) Recurring Patient Referrer: Callie WILLS 02/03/2021 1 1:15:12 AM EST [facility] Recurring Patient Referrer: Callie WILLS 02/03/2021 1 1:13:04 AM EST [facility] Outpatient Attender: AUDREY MELGAR [facility] Office 01/23 07:45:00 AM EST MEDENT ([facility] Extended Individual Psychotherapy - 45 min Attender: [facility] 01/30/2021 10:00:00 AM EST - 01/30/2021 10:00:00 AM EST [facility] ([facility]) Attender: [facility] 01/30/2021 12:00:00 AM EST [facility] ([facility]) Attender: [facility] 12/22/2020 12:00:00 AM EST [facility] ([facility]) Extended Individual Psychotherapy - 45 min Attender: [facility] 12/21/2020 03:00:00 AM EST - 12/21/2020 03:00:00 AM EST [facility] ([facility]) Outpatient Attender: AUDREY MELGAR [facility] Office 11/26 08:00:00 AM EST MEDENT ([facility] Outpatient Attender: Pricilla VILLALOBOS.EVANGELIST-SJPSegunEVANGELIST 2020 12:00:00 AM EST - 12/07/2020 01:57:25 PM EST [facility] Extended Individual Psychotherapy - 45 min Attender: [facility] 12/05/2020 12:00:00 PM EST - 12/05/2020 12:00:00 PM EST [facility] ([facility]) Attender: [facility] 12/05/2020 12:00:00 AM EST [facility] ([facility]) Outpatient Attender: Hailey WILLS [facility] 11/24/2020 08:15:00 AM EST MEDENT ([facility] FRANCIS Bang) Outpatient Attender: Isidra Peters [facility] 11/21/2020 03:30:00 AM EST - 11/21/2020 03:30:00 AM EST [facility] ([facility]) Attender: Isidra SALES 11/21/2020 12: 00:00 AM EST [facility] ([facility]) Outpatient Attender: El Rangel/[place]/Jerman/Rein dl 11/15/2020 07:00:00 AM EST MEDENT ([facility]) Extended Individual Psychotherapy - 45 min Attender: [facility] 11/01/2020 12:00:00 PM EST - 11/01/2020 12:00:00 PM EST [facility] ([facility]) [facility] 12:00:00 AM EST [facility] ([facility]) Outpatient Attender: El Rangel/[place]/Jerman/Rein dl 10/13/2020 12:45:00 PM EST MEDENT ([facility]) Extended Individual Psychotherapy - 45 min Attender: [facility] 10/05/2020 03:00:00 AM EST - 10/05/2020 03:00:00 AM EST [facility] ([facility]) [facility] 10/05/2020 12:00:00 AM EST [facility] ([facility]) Extended Individual Psychotherapy - 45 min Attender: [facility] 09/20/2020 04:00:00 AM EDT - 09/20/2020 04:00:00 AM EDT [facility] ([facility]) [facility] 09/20/2020 12:00:00 AM EDT [facility] ([facility]) Outpatient Attender: NELIA ALMARAZ 09/12/2020 12:07:03 P M EDT [facility] Patient Attender: Alcides ChReferrer: Callie WILLS 09/12/2020 12:01:29 PM EDT [facility] Outpatient Attender: Isidra Peters [facility] 08/29/2020 03:30:00 AM EDT - 08/29/2020 03:30:00 AM EDT [facility] ([facility]) Attender: Isidra Fran [facility] 08/29/2020 12: 00:00 AM EDT [facility] ([facility]) Outpatient Attender: Diana Yassine [facility] 08/26/2020 11:2 6:02 AM EDT [facility] Extended Individual Psychotherapy - 45 min Attender: Miguel [facility]el [facility] 08/26/2020 05:00:00 AM EDT - 08/26/2020 05:00:00 AM EDT [facility] ([facility]) Attender: Miguel Ángel Almanza 08/26/2020 12:00:00 AM EDT [facility] ([facility]) Outpatient Attender: CAMILA HAWKINS MD Physical Therapy 01:15:00 PM EDT MEDENT ([facility] ) Outpatient Attender: NELIA Metzger [facility] 08/15/2020 07:32:02 P M EDT [facility] Outpatient Attender: AUDREY MELGAR [facility] Office 07/27 01:30:00 PM EDT MEDENT ([facility] Outpatient Attender: BOROUGH COORDINATOR [facility] 08/13/2020 09:53:00 A M EDT [facility] Outpatient Attender: [facility] 08/12/2020 03:09:00 P M EDT [facility] Outpatient Attender: [facility] 08/12/2020 07:50:01 A M EDT [facility] Outpatient Attender: Hailey WILLS Main office - [facility] 08/09/2020 02:00:00 PM EDT MEDENT ([facility], ) Functional Status Immunizations Vaccine Date Status Description Data Source(s) COVID-19, mRNA, LNP-S, PF, 100 mcg/0.5 mL dose 03/28/2021 10 :24:02 AM EDT completed 10.5 mL [facility] ([facility]) COVID-19, mRNA, LNP-S, PF, 100 mcg/0.5 mL dose 03/28/2021 10 :24:02 AM EDT completed .5 mL [facility] ([facility]) COVID-19, mRNA, LNP-S, PF, 100 mcg/0.5 mL dose 03/28/2021 10 :24:02 AM EDT [facility]-19 VACCINE Moderna 03/28/2021 12:00:00 AM EDT completed [place]SIIS Vaccine Series Complete: YESThis Data wa s Submitted to [facility] Via [employer]. COVID-19, mRNA, LNP-S, PF, 100 mcg/0.5 mL dose 03/01/2021 11 :00:49 AM EDT completed 10.5 mL [facility]) COVID-19, mRNA, LNP-S, PF, 100 mcg/0.5 mL dose 03/01/2021 11 :00:49 AM EDT completed 10.5 mL [facility] ([facility]) COVID-19, mRNA, LNP-S, PF, 100 mcg/0.5 mL dose 03/01/2021 11 :00:49 AM EDT completed .5 mL [facility]) COVID-19, mRNA, LNP-S, PF, 100 mcg/0.5 mL dose 03/01/2021 11 :00:49 AM EDT [facility] COVID-19, mRNA, LNP-S, PF, 100 mcg/0.5 mL dose 03/01/2021 11 :00:49 AM EDT [facility] COVID-19 VACCINE Moderna 03/01/2021 12:00:00 AM EDT completed [facility]IS Vaccine Series Complete: NOThis Data was Submitted to [facility] Via [employer]. Medications Medication Brand Name Start Date Product Form Dose Route Admi nistrative Instructions Pharmacy Instructions Status Indications Reaction Description Data Source(s) Prednisone 20 MG Oral Tablet Prednisone 09/21/2021 12:00:00 AM EDT active [facility]ENT ([facility] Menthol 0.04 MG/MG Topical Gel [Biofreeze] Biofreeze 09/21 12:00:00 AM EDT active MED[facility] ( [facility] Omeprazole 40 MG Delayed Release Oral Capsule Omeprazole 08/14/2021 12:00:00 AM EDT ORAL active MEDENT ([facility], ) 30 ACTUAT fluticasone furoate 0.2 MG/ACT UAT / vilanterol 0.025 MG/ACTUAT Dry Powder Inhaler [Breo] Breo Ellipta 07/18/2021 12:00:00 AM EDT OR AL active MEDENT ([facility]) 200 ACTUAT Albuterol 0.09 MG/ACTUAT Metered Dose Inhal er [Ventolin] Ventolin HFA 07/18/2021 12:00:00 AM EDT RESPIRATORY active MEDENT ([facility], ) POLYETHYLENE GLYCOL 3350 142 MG/ML Oral Solution [Miralax] M iralax 07/06/2021 12:00:00 AM EDT ORAL active M EDENT ([facility]) Betamethasone 0.5 MG/ML / Clotrimazole 10 MG/ML Topica l Cream Clotrimazole/Betamethasone Dipropionate 07/06/2021 12:00:00 AM EDT active MEDENT ([facility], ) ammonium lactate 120 MG/ML Topical Cream ammonium lact ate (AMLACTIN) 12 % cream ammonium lactate (AMLACTIN) 12 % cream 05/15/2021 12:00:00 AM EDT Topical active Apply topically daily [facility] Biotin 5 MG Oral Capsule Biotin 5000 05/12/2021 12:00:00 AM EDT ORAL active MED[facility] ([facility] Colchicine 0.6 MG Oral Tablet colchicine 0.6 MG tablet colch icine 0.6 MG tablet 03/17/2021 12:00:00 AM EDT 0.6 mg Oral active Take 1 tablet (0.6 mg total) by mouth daily [facility] Fluoxetine 40 MG Oral Capsule fluoxetine 03/16/2021 12:00:00 AM EDT 40 mg by mouth completed <td ID="Medica tionRxNorm_1">339911</td><td ID="MedicationMedication_1">fluoxetine</td><td ID="MedicationRoute_1">by mouth</td><td ID="MedicationRouteConcept_1">X35049</td><td ID="MedicationStartDate_1">03/16/2021</td><td ID="MedicationStopDate_1"></td><td ID="MedicationDosageFrequency_1">once a day</td><td ID="MedicationDuration_1"></td><td ID="MedicationFormulaStrength_1">40 mg</td><td ID="MedicationDosageForm_1">capsule</td><td ID="MedicationDosageFormCode_1"></td><td ID="MedicationDosageDescription_1"></td><td ID="MedicationMedicationId_1">[id number]</td><td ID="MedicationAccount_1">[id number]</td><td ID="MedicationNpid_1">[id number]</td><td ID="MedicationAuthorFirstName_1">Isidra</td><td ID="MedicationAuthorLastName_1">[place]</td><td ID="MedicationTaxonomyCode_1">[id number]</td><td ID="MedicationTaxonomyDesc_1">Psychiatric/Mental Health</td><td ID="MedicationPhoneNumber_1">[phone]</td> Accumedic ([facility]) ammonium lactate 120 MG/ML Topical Cream Ammonium Lactate 03/16/2021 12:00:00 AM EDT active MEDENT ([facility] Fluoxetine 40 MG Oral Capsule FLUoxetine (PROzac) 40 M G capsule FLUoxetine (PROzac) 40 MG capsule 03/16/2021 12:00:00 AM EDT 40 mg Oral active Take 40 mg by mouth daily [facility] pantoprazole 40 MG Delayed Release Oral Tablet Pantoprazole Sodium 02/13/2021 12:00:00 AM EDT completed MEDENT ([facility], ) Inject Dexamthosone Phosphate 16039-304-78 12/20/2020 12:00:00 A M EST completed [facility] ([facility] Medication administered onsite Inject Triamcinolone Acetonide 10 ML, [facility] 5542-1336-15 12/20/2020 12:00:00 AM EST completed MED[facility] ([facility] Medication administered onsite Metoprolol Tartrate 25 MG Oral Tablet me toprolol tartrate (LOPRESSOR) 25 MG tablet metoprolol tartrate (LOPRESSOR) 25 MG tablet 12/07/2020 12:0 0:00 AM EST 25 mg Oral active Chest pain, unspecified typePalp itations Take 1 tablet (25 mg total) by mouth daily Take daily in the evening [facility] Chest pain, unspecified type Palpitations Cyclobenzaprine hydrochloride 5 MG Oral Tablet cyclobenzaprine (FLEXERIL) 5 MG tablet cyclobenzaprine (FLEXERIL) 5 MG tablet 11/04/2020 12:00:00 AM EST aborted TAKE 1 TABLET B Y MOUTH THREE TIMES A DAY NEEDED FOR MUSCLE SPASMS [facility] Prednisone 20 MG Oral Tablet predniSONE (DELTASONE) 20 MG tablet predniSONE (DELTASONE) 20 MG tablet 11/04/2020 12:00:00 AM EST aborted TAKE 3 TABLETS 60MG BY MOUTH DAILY [facility] zonisamide 100 MG Oral Capsule zonisamide (ZONEGRAN) 1 00 MG capsule zonisamide (ZONEGRAN) 100 MG capsule 10/19/2020 12:00:00 AM EST 100 mg Oral active Take 100 mg by mouth [facility] ferrous sulfate 325 MG Delayed Release O ral Tablet ferrous sulfate 325 (65 FE) MG EC tablet ferrous sulfate 325 (65 FE) MG EC tablet 08/16/2020 12 :00:00 AM EDT 1 {tbl} Oral active Take 1 tablet by mouth daily [facility] Ondansetron 4 MG Disintegrating Oral Tab let ondansetron (ZOFRAN-ODT) 4 MG disintegrating tablet ondansetron (ZOFRAN-ODT) 4 MG disintegrating tablet 08/16/2020 12:00:00 AM EDT active DISSOLVE ONE TABLET ON TONGUE TWICE A DAY NEEDED [facility] zonisamide 100 MG Oral Capsule Zonisamide 08/09/2020 12:00:00 AM EDT ORAL active [facility]ENT ([facility] zonisamide 50 MG Oral Capsule zonisamide (ZONEGRAN) 50 MG capsule zonisamide (ZONEGRAN) 50 MG capsule 07/26/2020 12:00:00 AM EDT 50 mg Oral aborted Take 50 mg by mouth 2 (two) times a day [facility] zonisamide 25 MG Oral Capsule zonisamide (ZONEGRAN) 25 MG capsule zonisamide (ZONEGRAN) 25 MG capsule 06/21/2020 12:00:00 AM EDT aborted TAKE 1CAP.BY MOUTH IN P.M. X 1 WEEK 1CAP.2X/DAY X 1 WEEK THEN 1CAP IN A.M. 2 IN P.M. [facility] zonisamide 25 MG Oral Capsule Zonisamide 06/20/2020 12:00:00 AM EDT ORAL completed [facility] ([facility]) zonisamide 50 MG Oral Capsule Zonisamide 06/20/2020 12:00:00 AM EDT ORAL completed [facility] ([facility]) Acetaminophen 325 MG / Hydrocodone Alison trate 5 MG Oral Tablet hydrocodone 5 mg- acetaminophen 325 mg tablet TAKE 1 TABLET BY MOUTH EVERY 5 6 HOURS EVERY DAY MAXIMUM DAILY DOSE 4 TABLETS hydrocodone 5 mg-acetaminophen 325 mg ta blet TAKE 1 TABLET BY MOUTH EVERY 5 6 HOURS EVERY DAY MAXIMUM DAILY DOSE 4 TABLETS completed acetaminop hen 325 MG / hydrocodone bitartrate 5 MG Oral Tablet [place] ([facility]) Amoxicillin 500 MG Oral Capsule amoxicil justo 500 mg capsule TAKE 1 CAPSULE [500MG] BY MOUTH THREE TIMES A DAY FOR 7 DAYS amoxicillin 500 mg capsule TAKE 1 CAPSULE [500MG] BY MOUTH THREE TIMES A DAY FOR 7 DAYS completed amoxicillin 500 MG Oral Capsule [facility] ([facility]) Prednisone 20 MG Oral Tablet prednisone 20 mg tablet TAKE 3 TABLETS 60MG BY MOUTH DAILY prednisone 20 mg tablet TAKE 3 TABLETS 60MG BY MOUTH DAILY completed prednisone 20 MG Ora l Tablet [facility] ([facility]) Cyclobenzaprine hydrochloride 5 MG Oral Tablet cyclobenzaprine 5 mg tablet TAKE 1 TABLET BY MOUTH THREE TIMES A DAY NEEDED FOR MUSCLE SPASMS cyclobenzaprine 5 mg tablet TAKE 1 TABLET BY MOUTH THREE TIMES A DAY NEEDED FOR MUSCLE SPASMS completed cyclobenzaprine hydrochloride 5 MG Oral Tablet [facility] ([facility]) Prednisone 10 MG Oral Tablet prednisone 10 mg tablet TAKE 4 TABLETS BY MOUTH ONCE DAILY FOR 5 DAYS THEN 3 TABLETS DAILY FOR 2 DAYS THEN 2 TABLETS DAILY FOR 2 DAYS THEN 1 TABLET DAILY FOR 2 D prednisone 10 mg tablet TAKE 4 TABLETS B Y MOUTH ONCE DAILY FOR 5 DAYS THEN 3 TABLETS DAILY FOR 2 DAYS THEN 2 TABLETS DAILY FOR 2 DAYS THEN 1 TABLET DAILY FOR 2 D completed prednisone 10 MG Oral Tablet [facility] ([facility]) Cyclobenzaprine hydrochloride 5 MG Oral Tablet cyclobenzaprine 5 mg tablet TAKE 1 TABLET BY MOUTH THREE TIMES A DAY NEEDED FOR MUSCLE SPASMS cyclobenzaprine 5 mg tablet TAKE 1 TABLET BY MOUTH THREE TIMES A DAY NEEDED FOR MUSCLE SPASMS completed cyclobenzaprine hydrochloride 5 MG Oral Tablet [facility] ([facility]) Acetaminophen 325 MG / Hydrocodone Alison trate 5 MG Oral Tablet hydrocodone 5 mg- acetaminophen 325 mg tablet TAKE 1 TABLET BY MOUTH EVERY 5 6 HOURS EVERY DAY MAXIMUM DAILY DOSE 4 TABLETS hydrocodone 5 mg-acetaminophen 325 mg ta blet TAKE 1 TABLET BY MOUTH EVERY 5 6 HOURS EVERY DAY MAXIMUM DAILY DOSE 4 TABLETS completed acetaminop hen 325 MG / hydrocodone bitartrate 5 MG Oral Tablet [place] ([facility]) Cyclobenzaprine hydrochloride 5 MG Oral Tablet cyclobenzaprine 5 mg tablet TAKE 1 TABLET BY MOUTH THREE TIMES A DAY NEEDED FOR MUSCLE SPASMS cyclobenzaprine 5 mg tablet TAKE 1 TABLET BY MOUTH THREE TIMES A DAY NEEDED FOR MUSCLE SPASMS completed cyclobenzaprine hydrochloride 5 MG Oral Tablet [facility] ([facility]) zonisamide 25 MG Oral Capsule zonisamide 25 mg capsule TAKE 1CAP.BY MOUTH IN P.M. X 1 WEEK 1CAP.2X/DAY X 1 WEEK THEN 1CAP IN A.M. 2 IN P.M. zonisamide 25 mg capsule TAKE 1CAP.BY MOUTH IN P.M. X 1 WEEK 1CAP.2X/DAY X 1 WEEK THEN 1CAP IN A.M. 2 IN P.M. completed zonisa mide 25 MG Oral Capsule [facility] ([facility]) Fluoxetine 20 MG Oral Capsule FLUoxetine (PROZAC) 20 M G capsule FLUoxetine (PROZAC) 20 MG capsule 60 mg Oral aborted T tomas 60 mg by mouth daily [facility] Prednisone 20 MG Oral Tablet prednisone 20 mg tablet TAKE 3 TABLETS 60MG BY MOUTH DAILY prednisone 20 mg tablet TAKE 3 TABLETS 60MG BY MOUTH DAILY completed prednisone 20 MG Ora l Tablet [facility] ([facility]) zonisamide 50 MG Oral Capsule zonisamide 50 mg capsule TAKE ONE CAPSULE BY MOUTH TWICE A DAY zonisamide 50 mg capsule TAKE ONE CAPSULE BY MOUTH TWICE A DAY completed zonisamide 50 MG Oral Capsule [facility] ([facility]) zonisamide 25 MG Oral Capsule zonisamide 25 mg capsule TAKE 1CAP.BY MOUTH IN P.M. X 1 WEEK 1CAP.2X/DAY X 1 WEEK THEN 1CAP IN A.M. 2 IN P.M. zonisamide 25 mg capsule TAKE 1CAP.BY MOUTH IN P.M. X 1 WEEK 1CAP.2X/DAY X 1 WEEK THEN 1CAP IN A.M. 2 IN P.M. completed zonisa mide 25 MG Oral Capsule [facility] ([facility]) Amoxicillin 500 MG Oral Capsule amoxicil justo 500 mg capsule TAKE 1 CAPSULE [500MG] BY MOUTH THREE TIMES A DAY FOR 7 DAYS amoxicillin 500 mg capsule TAKE 1 CAPSULE [500MG] BY MOUTH THREE TIMES A DAY FOR 7 DAYS completed amoxicillin 500 MG Oral Capsule [facility] ([facility]) Amoxicillin 500 MG Oral Capsule amoxicil justo 500 mg capsule TAKE 1 CAPSULE [500MG] BY MOUTH THREE TIMES A DAY FOR 7 DAYS amoxicillin 500 mg capsule TAKE 1 CAPSULE [500MG] BY MOUTH THREE TIMES A DAY FOR 7 DAYS completed amoxicillin 500 MG Oral Capsule [place] ([facility]) Prednisone 20 MG Oral Tablet prednisone 20 mg tablet TAKE 3 TABLETS 60MG BY MOUTH DAILY prednisone 20 mg tablet TAKE 3 TABLETS 60MG BY MOUTH DAILY completed prednisone 20 MG Ora l Tablet [facility] ([facility]) Prednisone 10 MG Oral Tablet prednisone 10 mg tablet TAKE 4 TABLETS BY MOUTH ONCE DAILY FOR 5 DAYS THEN 3 TABLETS DAILY FOR 2 DAYS THEN 2 TABLETS DAILY FOR 2 DAYS THEN 1 TABLET DAILY FOR 2 D prednisone 10 mg tablet TAKE 4 TABLETS B Y MOUTH ONCE DAILY FOR 5 DAYS THEN 3 TABLETS DAILY FOR 2 DAYS THEN 2 TABLETS DAILY FOR 2 DAYS THEN 1 TABLET DAILY FOR 2 D completed prednisone 10 MG Oral Tablet [place] ([facility]) Metoprolol Tartrate 25 MG Oral Tablet me toprolol tartrate (LOPRESSOR) 25 MG tablet metoprolol tartrate (LOPRESSOR) 25 MG tablet 25 mg Ora l aborted Take 25 mg by mouth 2 (two) times a day [facility] zonisamide 50 MG Oral Capsule zonisamide 50 mg capsule TAKE ONE CAPSULE BY MOUTH TWICE A DAY zonisamide 50 mg capsule TAKE ONE CAPSULE BY MOUTH TWICE A DAY completed zonisamide 50 MG Oral Capsule [place] ([facility]) zonisamide 25 MG Oral Capsule zonisamide 25 mg capsule TAKE 1CAP.BY MOUTH IN P.M. X 1 WEEK 1CAP.2X/DAY X 1 WEEK THEN 1CAP IN A.M. 2 IN P.M. zonisamide 25 mg capsule TAKE 1CAP.BY MOUTH IN P.M. X 1 WEEK 1CAP.2X/DAY X 1 WEEK THEN 1CAP IN A.M. 2 IN P.M. completed zonisa mide 25 MG Oral Capsule [facility] ([facility]) Prednisone 10 MG Oral Tablet prednisone 10 mg tablet TAKE 4 TABLETS BY MOUTH ONCE DAILY FOR 5 DAYS THEN 3 TABLETS DAILY FOR 2 DAYS THEN 2 TABLETS DAILY FOR 2 DAYS THEN 1 TABLET DAILY FOR 2 D prednisone 10 mg tablet TAKE 4 TABLETS B Y MOUTH ONCE DAILY FOR 5 DAYS THEN 3 TABLETS DAILY FOR 2 DAYS THEN 2 TABLETS DAILY FOR 2 DAYS THEN 1 TABLET DAILY FOR 2 D completed prednisone 10 MG Oral Tablet [facility] ([facility]) Acetaminophen 325 MG / Hydrocodone Alison trate 5 MG Oral Tablet hydrocodone 5 mg- acetaminophen 325 mg tablet TAKE 1 TABLET BY MOUTH EVERY 5 6 HOURS EVERY DAY MAXIMUM DAILY DOSE 4 TABLETS hydrocodone 5 mg-acetaminophen 325 mg ta blet TAKE 1 TABLET BY MOUTH EVERY 5 6 HOURS EVERY DAY MAXIMUM DAILY DOSE 4 TABLETS completed acetaminop hen 325 MG / hydrocodone bitartrate 5 MG Oral Tablet [facility] ([facility]) Omeprazole 40 MG Delayed Release Oral Ca psule omeprazole (PRILOSEC) 40 MG capsule omeprazole (PRILOSEC) 40 MG capsule 40 mg Oral aborted Take 40 mg by mouth daily [facility] zonisamide 50 MG Oral Capsule zonisamide 50 mg capsule TAKE ONE CAPSULE BY MOUTH TWICE A DAY zonisamide 50 mg capsule TAKE ONE CAPSULE BY MOUTH TWICE A DAY completed zonisamide 50 MG Oral Capsule [place] ([facility]) Amoxicillin 500 MG Oral Capsule amoxicil justo 500 mg capsule TAKE 1 CAPSULE [500MG] BY MOUTH THREE TIMES A DAY FOR 7 DAYS amoxicillin 500 mg capsule TAKE 1 CAPSULE [500MG] BY MOUTH THREE TIMES A DAY FOR 7 DAYS completed amoxicillin 500 MG Oral Capsule [place] ([facility]) Trazodone Hydrochloride 100 MG Oral Tablet traZODone ( DESYREL) 100 MG tablet traZODone (DESYREL) 100 MG tablet {tbl} Oral abor nic Take 1-2 tablets by mouth nightly [facility] Prednisone 20 MG Oral Tablet prednisone 20 mg tablet TAKE 3 TABLETS 60MG BY MOUTH DAILY prednisone 20 mg tablet TAKE 3 TABLETS 60MG BY MOUTH DAILY completed prednisone 20 MG Ora l Tablet [facility] ([facility]) Cyclobenzaprine hydrochloride 5 MG Oral Tablet cyclobenzaprine 5 mg tablet TAKE 1 TABLET BY MOUTH THREE TIMES A DAY NEEDED FOR MUSCLE SPASMS cyclobenzaprine 5 mg tablet TAKE 1 TABLET BY MOUTH THREE TIMES A DAY NEEDED FOR MUSCLE SPASMS completed cyclobenzaprine hydrochloride 5 MG Oral Tablet [facility] ([facility]) zonisamide 25 MG Oral Capsule zonisamide 25 mg capsule TAKE 1CAP.BY MOUTH IN P.M. X 1 WEEK 1CAP.2X/DAY X 1 WEEK THEN 1CAP IN A.M. 2 IN P.M. zonisamide 25 mg capsule TAKE 1CAP.BY MOUTH IN P.M. X 1 WEEK 1CAP.2X/DAY X 1 WEEK THEN 1CAP IN A.M. 2 IN P.M. completed zonisa mide 25 MG Oral Capsule [facility] ([facility]) zonisamide 50 MG Oral Capsule zonisamide 50 mg capsule TAKE ONE CAPSULE BY MOUTH TWICE A DAY zonisamide 50 mg capsule TAKE ONE CAPSULE BY MOUTH TWICE A DAY completed zonisamide 50 MG Oral Capsule [place] ([facility]) Prednisone 10 MG Oral Tablet prednisone 10 mg tablet TAKE 4 TABLETS BY MOUTH ONCE DAILY FOR 5 DAYS THEN 3 TABLETS DAILY FOR 2 DAYS THEN 2 TABLETS DAILY FOR 2 DAYS THEN 1 TABLET DAILY FOR 2 D prednisone 10 mg tablet TAKE 4 TABLETS B Y MOUTH ONCE DAILY FOR 5 DAYS THEN 3 TABLETS DAILY FOR 2 DAYS THEN 2 TABLETS DAILY FOR 2 DAYS THEN 1 TABLET DAILY FOR 2 D completed prednisone 10 MG Oral Tablet [place] ([facility]) Loratadine 10 MG Oral Tablet loratadine (CLARITIN) 10 MG tablet loratadine (CLARITIN) 10 MG tablet aborted loratadine 10 mg tablet TAKE ONE TABLET BY MOUTH EVERY DAY [facility] Acetaminophen 325 MG / Hydrocodone Alison trate 5 MG Oral Tablet hydrocodone 5 mg- acetaminophen 325 mg tablet TAKE 1 TABLET BY MOUTH EVERY 5 6 HOURS EVERY DAY MAXIMUM DAILY DOSE 4 TABLETS hydrocodone 5 mg-acetaminophen 325 mg ta blet TAKE 1 TABLET BY MOUTH EVERY 5 6 HOURS EVERY DAY MAXIMUM DAILY DOSE 4 TABLETS completed acetaminop hen 325 MG / hydrocodone bitartrate 5 MG Oral Tablet [facility] ([facility]) Insurance Providers Payer name Policy type / Coverage type Policy ID Covered republican ID Covered republican's relationship to vale Policy Vale Plan Information MEDICARE [id number] A MEDICARE [id number] SP [id number] Medicare [facility] Medicare Primary [id number] Self [id number] Medicare [facility] Medicare Primary [id number] Self 6 [id number] MEDICARE [id number] SP [id number] [place] Medicare Primary [id number] Self 6 [id number] MEDICARE A [id number] Self [id number] A MEDICAID [id number] SP [id number] Medicare P [id number] S [id number] [id number] Medicare P [id number] S [id number] A Medicaid S [id number] S [id number] Medicare C [id number] SELF [id number] [id number] Medicaid [facility] S D [id number] SELF [id number] DME Jurisdiction A [facility] C [id number] SELF [id number] Medicare C [id number] SELF [id number] A Medicaid [facility] S D [id number] SELF [id number] Medicaid S [id number] S [id number] MEDICAID M [id number] Self [id number] Medicaid S [id number] S [id number] MEDICAID [id number] SP [id number] Medicaid [facility] S D [id number] SELF [id number] MEDICAID [id number] SP [id number] Medicaid S [id number] S [id number] [place] [id number] SP [id number] [place] [id number] SP [id number] D MEDICAID [id number] SP [id number] [place] Part [place] [id number] Self [id number] [place] [id number] Self [id number] [place] [id number] Self [id number] [facility] MEDICARE [id number] Kiana [id number] Medicare Wrap O [id number] S [id number] [employer] MCR Ppo Health Maintenance Organization (HMO) [id number] Self [id number] [facility] [employer] P [id number] S [id number] Medicare S [id number] S [id number] [facility] Comm Plan Medicare F [id number] SELF [id number] [facility] MEDICARE [id number] xxxxxxxxx [id number] Managed Care - Community Plan [facility] P [id number] S [id number] Medicaid S [id number] S [id number] [facility] [employer] P [id number] S [id number] Medicaid S [id number] S [id number] Hum[employer] Medicare F [id number] SELF [id number] HUMANA MEDICARE [id number] xxxxxxxxx [id number] HUMANA MEDICARE [id number] Kiana [id number] MEDICAID -RECURRING [id number] MEDICARE -RECURRING [id number] 18 [id number] MEDICAID [id number] S [id number] [facility] MEDICARE DIVISION [id number] S [id number] MEDICARE - [place] [id number] S [id number] Medicare P [id number] S [id number] A [place] Medigap Part B [id number] Self [id number] Medicare [place] Medicare Primary [id number] Self 1 [id number] [place] Medigap Part B [id number] Self [id number] Medicare [place] Medicare Primary [id number] Self 1 [id number] MEDICARE [id number] SP [id number] A Medicare [place] [id number] [place] [id number] [id number] Self Medicare [facility] Medicare Primary [id number] Self MEDICAID [id number] SP [id number] MEDICAID [id number] SP [id number] MEDICAID [id number] SP [id number] MEDICAID [id number] SP [id number] MEDICAID [id number] SP [id number] Medicaid Medigap Part B [id number] Self Medicare Medicare Primary [id number] Self MEDICARE [id number] SP [id number] SELF PAY UNAVAILABLE SP UNAVAILA BLE HUMANA GOLD [id number] SP [id number] MEDICAID [id number] Kiana [id number] MEDICAID [id number] xxxxxxxx [id number] HUMANA GOLD [id number] SP [id number] [facility] [id number] SP [id number] MEDICARE COMPLETE-[facility] O [id number] S [id number] MEDICARE COMPLETE [id number] SP [id number] MEDICARE COMPLETE [id number] SP [id number] [facility] [id number] SP [id number] [facility] SP MEDICAID M [id number] S [id number] [facility](MCAID) O [id number] S [id number] [facility] SP OTHER WORKERS COMPENSATION [id number] SP [id number] MEDICARE COMPLETE-[facility] O [id number] S [id number] MEDICAID M [id number] S [id number] Medicare Wrap O [id number] S [id number] MEDICARE [id number] Kiana [id number] G36 Medicaid Medicaid [id number] Self [id number] [facility] Comm Dual Plan Commercial [id number] Self [id number] Medicaid Medicaid [id number] Self [id number] [facility] Comm Dual Plan Commercial [id number] Self [id number] Medicaid Medicaid [id number] Self [id number] [facility] Comm Dual Plan Commercial [id number] Self [id number] Medicaid Medicaid [id number] Self [id number] [facility] Comm Dual Plan Commercial [id number] Self [id number] [facility] P [id number] S [id number] MEDICARE COMPLETE [id number] SP [id number] [facility] MEDICARE PI PI MEDICAID PI PI MEDICARE [id number] Kiana [id number] A Medicaid [facility] Healthcare S D [id number] SELF [id number] Medicare C [id number] SELF [id number] A MEDICAID [id number] SP [id number] MEDICARE C [id number] S [id number] [place] Part B [id number] Self [id number] [place]/[facility] Medicare Primary [id number] Self 1 [id number] Medicaid Medicaid [id number] S elf [id number] Medicare Medicare Primary [id number] Self [id number] Medicaid [facility] Part B [id number] Self [id number] Medicare [facility] Medicare Primary [id number] Self 1 [id number] Medicaid [facility] Part B [id number] Self [id number] Medicare [facility] Medicare Primary [id number] Self 1 [id number] Problems, Conditions, and Diagnoses Code Display Name Description Problem Type Effective Dates Data Source(s) R06.02 Shortness of breath Shortness of breath Diagnosis 1 02:07:34 PM EDT [facility] R07.9 Chest pain, unspecified Chest pain, unspecified Diagno sis 09/15/2021 02:07:34 PM EDT [facility] I49.3 Ventricular premature depolarization Ventricular premature depolarization Diagnosis 09/15/2021 02:07:34 PM EDT [facility] 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 Other disorders of intestinal carbohydra Diagnosis 06/16/2021 12:46:12 PM EDT [facility] I26.99 Other pulmonary embolism without acute c or pulmonale Other pulmonary embolism without acute c Diagnosis 06/16/2021 12:46:12 PM EDT [facility] E55.9 Vitamin D deficiency, unspecified Vitamin D defi ciency, unspecified Diagnosis 06/16/2021 12:46:12 PM EDT [facility] E66.01 Morbid (severe) obesity due to excess ca lories Morbid (severe) obesity due to excess ca Diagnosis 06/16/2021 12:46:12 PM EDT [facility] G43.909 Migraine, unspecified, not intractable, without status migrainosus Migraine, unspecified, not intractable, Diagnosis 06/16/2021 12:46:12 PM EDT [facility] K21.9 Gastro-esophageal reflux disease without esophagitis Gastro-esophageal reflux disease without Diagnosis 06/16/2021 12:46:12 PM EDT [facility] J45.20 Mild intermittent asthma, uncomplicated Mild intermittent asthma, uncomplicated Diagnosis 06/16/2021 12:46:12 PM EDT [facility] E78.5 Hyperlipidemia, unspecified Hyperlipidemia, unspecifie d Diagnosis 06/16/2021 12:46:12 PM EDT [facility] F32.9 Major depressive disorder, single episod e, unspecified Major depressive disorder, single episod Diagnosis 03/17/2021 12:48:16 PM EDT [facility] R00.2 Palpitations Palpitations Diagnosis 03/17/2021 12:48:16 P M EDT [facility] Z86.711 Personal history of pulmonary embolism P ersonal history of pulmonary embolism Diagnosis 03/17/2021 12:48:16 PM EDT [facility] R94.31 Abnormal electrocardiogram [ECG] [EKG] A bnormal electrocardiogram (ECG) (EKG) Diagnosis 03/17/2021 12:48:16 PM EDT [facility] R42 Dizziness and giddiness Dizziness and giddiness Diagno sis 12/07/2020 01:01:38 PM EST [facility] E78.49 Other hyperlipidemia Other hyperlipidemia Diagnosis 12/07/2020 01:01:38 PM EST [facility] F33.9 Major depressive disorder, recurrent, un specified Major Depressive Disorder, Recurrent episode, Unspecified Condition 09/22/2021 12:00:00 AM EDT [facility] ([facility]) J45.20 Mild intermittent asthma Mild intermittent asthma Prob jaylen 07/18/2021 12:00:00 AM EDT [facility] ([facility], ) E74.39 Glucose intolerance Glucose intolerance [id number] 06/16/2021 12:00:00 AM EDT [facility] [id number] Body mass index 40+ - severely obese Bod y Mass Index 40+ - Severely Obese Problem 03/14/2021 12:00:00 AM EDT [place] ([facility]) [id number] Body mass index 40+ - severely obese Bod y Mass Index 40+ - Severely Obese Problem 03/14/2021 12:00:00 AM EDT [place] ([facility]) [id number] Body mass index 40+ - severely obese Bod y Mass Index 40+ - Severely Obese Problem 03/14/2021 12:00:00 AM EDT [place] ([facility]) [id number] Body mass index 40+ - severely obese Bod y Mass Index 40+ - Severely Obese Problem 03/14/2021 12:00:00 AM EDT [facility]) S93.401D Sprain of right ankle Sprain of right ankle Problem 02/13/2021 12:00:00 AM EDT [facility] ([facility] M72.2 Plantar fascial fibromatosis Plantar fascial fibromato sis Problem 12/21/2020 12:00:00 AM EST [facility] ([facility] M79.671 Pain in limb Pain in limb Problem 12/21/2020 12:00:00 A M EST [facility] ([facility] M79.2 Neuralgia Neuralgia Problem 12/21/2020 12:00:00 AM ES T [facility] ([facility] M65.872 Other synovitis and tenosynovitis, left ankle and foot Other synovitis and tenosynovitis, left ankle and foot Problem 08/22/2020 12:0 0:00 AM EDT - 12/21/2020 12:00:00 AM EST [facility] ([facility] 787.02 Nausea Nausea 08/15/2020 07:31:29 PM ED T [facility] [id number] Nausea Nausea Problem 08/15/2020 12:00:00 AM ED T [place] ([facility]) [id number] Nausea Nausea Problem 08/15/2020 12:00:00 AM ED T [place] ([facility]) [id number] Nausea Nausea Problem 08/15/2020 12:00:00 AM ED T [place] ([facility]) [id number] Nausea Nausea Problem 08/15/2020 12:00:00 AM ED T [place] ([facility]) 299905207 Nausea Nausea Problem 08/15/2020 12:00:00 AM ED T [place] ([facility]) 276640559 Nausea Nausea Problem 08/15/2020 12:00:00 AM ED T [place] ([facility]) 60702278 Pain in limb Pain in limb Problem 06/25/2020 12:0 0:00 AM EDT - 08/22/2020 12:00:00 AM EDT [facility] ([facility] Other synovitis and tenosynovitis, right ankle and foot Other synovitis and tenosynovitis, right ankle and foot Problem 06/25/2020 12:00:0 0 AM EDT - 08/22/2020 12:00:00 AM EDT [facility] ([facility] Surgeries/Procedures Procedure Description Date Indications Data Source(s) [facility] Telemed E/M Lvl 3--Est pt 09/22/2021 12:00:00 AM EDT - 09/22/2021 12:00:00 AM EDT [facility] ([facility]) [facility] Telemed E/M Lvl 3--Est pt 09/22/2021 12:00:00 AM E DT [facility] ([facility]) OFFICE OUTPATIENT VISIT 10 MINUTES 09/21/2021 12:00:00 AM EDT [facility] ([facility] Spirometry 08/29/2021 12:00:00 AM EDT M [facility] ([facility], ) OFFICE OUTPATIENT VISIT 15 MINUTES 08/29/2021 12:00:00 AM EDT [facility] ([facility]) OFFICE OUTPATIENT VISIT 25 MINUTES 08/15/2021 12:00:00 AM EDT [facility] ([facility]) OFFICE OUTPATIENT VISIT 15 MINUTES 08/14/2021 12:00:00 AM EDT [facility] ([facility]) MRI SPINAL CANAL CERVICAL W/O CONTRAST MATRL 12:00:00 AM EDT [facility] ([facility]) MRI SPINAL CANAL CERVICAL W/O CONTRAST MATRL 12:00:00 AM EDT [facility] ([facility]) OFFICE OUTPATIENT VISIT 25 MINUTES 07/18/2021 12:00:00 AM EDT [facility] ([facility]) OFFICE OUTPATIENT VISIT 25 MINUTES 07/14/2021 12:00:00 AM EDT [facility] ([facility]) MHC Telemed E/M Lvl 3--Est pt 07/13/2021 12:00:00 AM EDT - 07/13/2021 12:00:00 AM EDT [facility] ([facility]) MHC Telemed E/M Lvl 3--Est pt 07/13/2021 12:00:00 AM E DT [facility] ([facility]) Remove Impacted Cerumen 07/06/2021 12:00:00 AM EDT [facility] ([facility]) OFFICE OUTPATIENT VISIT 15 MINUTES 07/06/2021 12:00:00 AM EDT [facility] ([facility]) OFFICE OUTPATIENT VISIT 25 MINUTES 07/06/2021 12:00:00 AM EDT [facility] ([facility]) OFFICE OUTPATIENT VISIT 25 MINUTES 06/26/2021 12:00:00 AM EDT [facility] ([facility]) Spirometry 05/25/2021 12:00:00 AM EDT M [facility]ENT ([facility]) OFFICE OUTPATIENT NEW 45 MINUTES 05/25/2021 12:00:00 A M EDT [facility] ([facility]) Brief Individual Psychotherapy - 30 min 05/19/2021 12:00:00 AM EDT - 05/19/2021 12:00:00 AM EDT [facility] ([facility]) Brief Individual Psychotherapy - 30 min 05/19/2021 12: 00:00 AM EDT [facility] ([facility]) OFFICE OUTPATIENT VISIT 10 MINUTES 05/12/2021 12:00:00 AM EDT [facility] ([facility] Extended Individual Psychotherapy - 45 min 05/05/2021 12:00:00 AM EDT - 05/05/2021 12:00:00 AM EDT [facility] ([facility]) Extended Individual Psychotherapy - 45 min 12:00:00 AM EDT [facility] ([facility]) MHC Telemed E/M Lvl 2--Est pt 05/02/2021 12:00:00 AM EDT - 05/02/2021 12:00:00 AM EDT [facility] ([facility]) MHC Telemed E/M Lvl 2--Est pt 05/02/2021 12:00:00 AM E DT [facility] ([facility]) MRI BRAIN BRAIN STEM W/O CONTRAST MATERIAL 04/18/2021 12:00:00 AM EDT [facility] ([facility], ) MRI BRAIN BRAIN STEM W/O CONTRAST MATERIAL 04/18/2021 12:00:00 AM EDT [facility] ([facility], ) Extended Individual Psychotherapy - 45 min 04/17/2021 12:00:00 AM EDT - 04/17/2021 12:00:00 AM EDT [facility] ([facility]) Extended Individual Psychotherapy - 45 min 12:00:00 AM EDT [facility] ([facility]) Endoscopy Upper GI Complex Diagnostic 03/31/2021 12:00 :00 AM EDT [facility] ([facility], ) Dilate Esophagus Unguided Sound Or Bougie 03/31/2021 1 2:00:00 AM EDT [facility] ([facility], ) OFFICE OUTPATIENT VISIT 15 MINUTES 03/16 12:00:00 AM EDT - 03/16/2021 12:00:00 AM EDT [facility] ([facility]) OFFICE OUTPATIENT VISIT 15 MINUTES 03/16/2021 12:00:00 AM EDT [facility] ([facility]) Extended Individual Psychotherapy - 45 min 03/14/2021 12:00:00 AM EDT - 03/14/2021 12:00:00 AM EDT [facility] ([facility]) Extended Individual Psychotherapy - 45 min 12:00:00 AM EDT [facility] ([facility]) Extended Individual Psychotherapy - 45 min 02/24/2021 12:00:00 AM EDT - 02/24/2021 12:00:00 AM EDT [facility] ([facility]) Extended Individual Psychotherapy - 45 min 12:00:00 AM EDT [facility] ([facility]) OFFICE OUTPATIENT NEW 45 MINUTES 02/13/2021 12:00:00 A M EDT [facility] ([facility], ) Extended Individual Psychotherapy - 45 min 01/30/2021 12:00:00 AM EST - 01/30/2021 12:00:00 AM EST [facility] ([facility]) Extended Individual Psychotherapy - 45 min 12:00:00 AM EST [facility] ([facility]) Extended Individual Psychotherapy - 45 min 12/22/2020 12:00:00 AM EST - 12/22/2020 12:00:00 AM EST [facility] ([facility]) Extended Individual Psychotherapy - 45 min 12:00:00 AM EST [facility] ([facility]) ARTHROCENTESIS ASPIR&/INJECTION INTERM JT/BURSA 2020 12:00:00 AM EST [facility] ([facility] ECG ROUTINE ECG W/LEAST 12 LDS W/I&R <td>POCT AMB EKG</td><td>Routine</td><td>12/07/2020 1:04 PM EST</td><td> Palpitations Chest pain, unspecified type</td><td> </td> 12/07/2020 06:04:00 PM EST Chest pain, unspecified typePalpitations [facility] Chest pain, unspecified type Palpitations Extended Individual Psychotherapy - 45 min 12/05/2020 12:00:00 AM EST - 12/05/2020 12:00:00 AM EST [facility] ([facility]) Extended Individual Psychotherapy - 45 min 12:00:00 AM EST [facility] ([facility]) [facility] Telemed E/M Lvl 3--Est pt 11/21/2020 12:00:00 AM EST - 11/21/2020 12:00:00 AM EST [facility] ([facility]) Telemed A/O 30" 11/21/2020 12:00:00 AM EST [facility] ([facility]) [facility] Telemed E/M Lvl 3--Est pt 11/21/2020 12:00:[address] [facility] ([facility]) Extended Individual Psychotherapy - 45 min 11/01/2020 12:00:00 AM EST - 11/01/2020 12:00:00 AM EST [facility] ([facility]) Extended Individual Psychotherapy - 45 min 0 12:00:00 AM EST [facility] ([facility]) Extended Individual Psychotherapy - 45 min 10/05/2020 12:00:00 AM EST - 10/05/2020 12:00:00 AM EST [facility] ([facility]) Extended Individual Psychotherapy - 45 min 0 12:00:00 AM EST [facility] ([facility]) Extended Individual Psychotherapy - 45 min 09/20/2020 12:00:00 AM EDT - 09/20/2020 12:00:00 AM EDT [facility] ([facility]) Extended Individual Psychotherapy - 45 min 0 12:00:00 AM EDT [facility] ([facility]) MHC Telemed E/M Lvl 3--Est pt 08/29/2020 12:00:00 AM EDT - 08/29/2020 12:00:00 AM EDT [facility] ([facility]) Telemed A/O 30" 08/29/2020 12:00:00 AM EDT [facility] ([facility]) [facility] Telemed E/M Lvl 3--Est pt 08/29/2020 12:00:00 AM E DT [facility] ([facility]) Extended Individual Psychotherapy - 45 min 08/26/2020 12:00:00 AM EDT - 08/26/2020 12:00:00 AM EDT [facility] ([facility]) Extended Individual Psychotherapy - 45 min 0 12:00:00 AM EDT [facility] ([facility]) RADEX ANKLE COMPLETE MINIMUM 3 VIEWS 08/19/2020 12:00: 00 AM EDT [facility] ([facility]) RADEX FOOT COMPLETE MINIMUM 3 VIEWS 08/19/2020 12:00:0 0 AM EDT [facility] ([facility]) RADEX ANKLE COMPLETE MINIMUM 3 VIEWS 08/19/2020 12:00: 00 AM EDT [facility] ([facility]) RADEX FOOT COMPLETE MINIMUM 3 VIEWS 08/19/2020 12:00:0 0 AM EDT [facility] ([facility]) Results ID Date Data Source [id number] 09/16/2021 11:19:50 PM EDT [facility] Name Value Range Interpretation Code Description Data Jennifer rce(s) Supporting Document(s) &PDF [facility] DFWUKo2uFrOYZrMt00/LHGppVJZlp2CdKNopQLt2JRmcFFHzW9ZlaVzeLF5FDrrHBshQKbEDAXtgAPAy vci [file] AgICAgICAgICAgICAgICAgICAgICAgICAgICAgICAg ICAgICAgICAgICAgICAgICAgICAgICAgICAgICAgICAgICAgICAgICAgICAgICAgICAgICAgICAgICAg ICAgICANCiAgICAgICAgICAgICAgICAgICAgICAgICAgICAgICAgICAgICAgICAgICAgICAgICAgICAg ICAgICAgICAgICAgICAgICAgICAgICAgICAgICAgIC AgICAgICAgICAgICAgICANCiAgICAgICAgICAgICAgICAgICAgICAgICAgICAgICAgICAgICAgICAgIC AgICAgICAgICAgICAgICAgICAgICAgICAgICAgICAgICAgICAgICAgICAgICAgICAgICAgICAgICANCi AgICAgICAgICAgICAgICAgICAgICAgICAgICAgICAg ICAgICAgICAgICAgICAgICAgICAgICAgICAgICAgICAgICAgICAgICAgICAgICAgICAgICAgICAgICAg ICAgICAgICANCiAgICAgICAgICAgICAgICAgICAgICAgICAgICAgICAgICAgICAgICAgICAgICAgICAg ICAgICAgICAgICAgICAgICAgICAgICAgICAgICAgIC AgICAgICAgICAgICAgICAgICANCiAgICAgICAgICAgICAgICAgICAgICAgICAgICAgICAgICAgICAgIC AgICAgICAgICAgICAgICAgICAgICAgICAgICAgICAgICAgICAgICAgICAgICAgICAgICAgICAgICAgIC ANCiAgICAgICAgICAgICAgICAgICAgICAgICAgICAg ICAgICAgICAgICAgICAgICAgICAgICAgICAgICAgICAgICAgICAgICAgICAgICAgICAgICAgICAgICAg ICAgICAgICAgICANCiAgICAgICAgICAgICAgICAgICAgICAgICAgICAgICAgICAgICAgICAgICAgICAg ICAgICAgICAgICAgICAgICAgICAgICAgICAgICAgIC AgICAgICAgICAgICAgICAgICAgICANCiAgICAgICAgICAgICAgICAgICAgICAgICAgICAgICAgICAgIC AgICAgICAgICAgICAgICAgICAgICAgICAgICAgICAgICAgICAgICAgICAgICAgICAgICAgICAgICAgIC AgICANCiAgICAgICAgICAgICAgICAgICAgICAgICAg ICAgICAgICAgICAgICAgICAgICAgICAgICAgICAgICAgICAgICAgICAgICAgICAgICAgICAgICAgICAg ICAgICAgICAgICAgICANCjw/dHYaB5zvkOEryxD3H7saVj4HNm0VRW5fr0WcHZWkKFzjjvLsLoiSNjUq QVOyKhcAFaf9YBtfPV7HyTWaC5DnR6MdWXayZA2FOP YbVELodMQfFXDuAJVvSeX7HZMkTYtaTR8JrSEnSMogBFZiSIVnKnIrVJLqDK2RUFBmN990ooDrNn0FBd 3KRsPlEH2lnd6ZJcNlHMWrTyoGDbx3NSepMP1VgJUjO3BzpDXhk2eJCyBnP6RPAXBxVYLrWm4GVXZtLv BiMCLaGCjvLG2nBIVgMVZFgZxkxeA7JR2MRJ7kdbEa SP6ELkFzKv1vIz5GLpDpJ7OrG9VwWEReGYYZSTnoTS8ARBDdDNT7SCMtKpBwPOQZJgXvG09aIU0GR8Rp y82hDlI3XDGpMrShASheWA60nFfzctJfaLVgrJrzWA8ZZi7+DQplbmRvYmoNCnhyZWYNCjAgMzQNCjAw ZOMbJNOrBKOwRqW6DqAaAs2JZIAuJILoMKJlDjInMF DuFHIwBZawRJVtHZQ2YWBkCKBvRRAnCW7OPbLkOYQvWGi4CLQeFZGqKJWyjv7AXJOjGDBiSXB1XtDtES DgRIShLEghRXLoMATzKBe6KBTzEODeLM6YIwVkIICeAXDeSystEAShRTIbhb9SVEBeYOVcPMOwPJLkOB TgEOCoSNxkMXRqGKC6FcS0YYVsBVXpKS6LJhZcRZYl VJQhITcoSIKrSZIfnn6HUZNoGSPaIOS0KZMtMUStBJXmYMucCNUaHRL5RJI4GAIfPKOmIR6AVaDdRMOk FBX3QbVuEGXzXDVjre1TXCPeODJrWjtaFqSvMFNmIJWzPAsvUJInTRQ0GKD9ZLHlNWEaRD0NXdJfFWPz GVE6CsGtROPaADHhlw7TQYWjUUXcYoR2LwOxWLZeXI TmQWrkUAAbCLHdKxn9TSXmGURuSC9QVkFwPMPmLRT2YsqmYQTmSIMjrm5HFHXkEEAcErN4XcHfIVTmBN FkOVuyKAEaVSMdMrW4URIlMMEjBZ8TYrWhIKLrBNQ1FPUoHHPsUANosi2WBDEtLDUpVyh3SuOjCXMePF PqDLfcHDCcJZV2NBU5CPQkOSUnPY2QWrYpHSWdJWQp AZOoZSCoJRLkhw1SLCHtYTTqOBD2SDQhLRHsGJMcELjyCUNqORE8CdHkRFPzYZZkIL7BOsDhXWOpLXL8 PgcbEKXgFPEhij4IESHaXTHyDfM9UGGrMOKsVUQhQPtoBTWuGNP4EUX9WRYiOLFoLV7RYzFdXSJpLBI1 OoapFAKcYSOdqz3EPFHyOSBjEzMdAVUtYEBpQXMdVS hyDBEjODF6MTB8UHPwNBEcVF1FJvUmVVSeQXjuGXysMWAgBJZqfz2SnBSkyJgwgp3EDRjXHg2LxFvrIJ L7KEqdRd8kpCDzPhNbMZCRMb4GtmSsZANnOPGGUHagPQZqEMnjISgwZnPwB6O1KJX5J6W5TAxbLkBaVI J3JyV4U5XlJyI6IAHdV6WyDCDjPorfMGq3XhJoV8Pv VRVaWkexYly3AkY+UY4dUDm+Yv1Dy0WmecN0ceTmSHzrBCE2BQ8UKBGLL6BKTi== ID Date Data Source [id number] 09/16/2021 11:09:13 PM EDT [facility] Name Value Range Interpretation Code Description Data Jennifer rce(s) Supporting Document(s) &PDF [facility] LHVHUh0wCbYRVuIc11/DVQtdKJShc3YpWYlqTBs3DZorGTPkW0YnqPjbFC4ILfoHWmpUQkHCKRvzWNPg vci [file] AgICAgICAgICAgICAgICAgICAgICAgICAgICAgICAgICAgICAgICAgICAgICAgICAgICAgICAgICAgIC AgICAgICAgICAgICAgICAgICAgICAgICAgICAgICAg LDVqESYzUN7CCTSkWVNzNJGxJWGdYLPsLFVgDLLjSBZaTZOgTTEbCAQdQGEoJQVuQGFeJRQbPVZkOPYs LLUdZTRlRPPwSHJzJEWvCMDfNVIpSZSqJFNsGFPeQZExGTQtZDMsEHZeGPDzYZVpEX2BZHDpDUBhAEAd ICAgICAgICAgICAgICAgICAgICAgICAgICAgICAgIC AgICAgICAgICAgICAgICAgICAgICAgICAgICAgICAgICAgICAgICAgICAgICAgICAgICAgICAgICAgIA 0KICAgICAgICAgICAgICAgICAgICAgICAgICAgICAgICAgICAgICAgICAgICAgICAgICAgICAgICAgIC AgICAgICAgICAgICAgICAgICAgICAgICAgICAgICAg NPVfEDHqJRTaXY4ADBBqNBPwOMKcEZQtHAZbYUUhDUZqPJRpBANzVIBbHCVmILNqNJJgSDFkVHSjFIKk UPKkIEVxCMYlMQJmEOHmSRCfUEVmHYWhTFIjGRXrKEKpEXNzMKVsKYSkRBHqAQZgAFRpOM8HKDZvZTKn ICAgICAgICAgICAgICAgICAgICAgICAgICAgICAgIC AgICAgICAgICAgICAgICAgICAgICAgICAgICAgICAgICAgICAgICAgICAgICAgICAgICAgICAgICAgIC GrDB0JDYAcKSKoDBIkRHFiYMCcXYDlJPUfHCCbLKTdOHNvHJDkJIUlHMYiFMEbIYDsULWhRXJlFMGjVX AgICAgICAgICAgICAgICAgICAgICAgICAgICAgICAg MFIkKNKbOURcAOHyQB1GMGOmKTJmLYXzRXIlSNWqQAElMSLjOAYpQYZvKSXpPAOiNPMsVPVwGJHcTAEf JEQvJDLbKPWnSOGoPWCnMWMyIMNcGADgUSSkCEWzUNWkNWHdRWQbFFHjELJaANLrIPRgGZCmIV8OAJTs ICAgICAgICAgICAgICAgICAgICAgICAgICAgICAgIC AgICAgICAgICAgICAgICAgICAgICAgICAgICAgICAgICAgICAgICAgICAgICAgICAgICAgICAgICAgIC ZmEWFcCU0OMBBzWXXhBATlOSOqYXOfMQAoOQLyJGErUZFuHWSgMWKlLTNuWLAeJHHdQTNhQYBcSBRsWN AgICAgICAgICAgICAgICAgICAgICAgICAgICAgICAg CHAwYTLnGOWsWHGhCSWwWM2YVC44jAOkl3E6PLNbZD2jwyx/Iv8GXEuyydAqzSHrEN8AQlTnSU5yhx8X ZcJmUE4uol4XCOhPNsTeK2Q7uEHcFANwISUZDdFoU93wEFelXi63RMavRZZlLeMaAKo9Uf7KNjLqL7ju AMIuBpL3XLCnYqL9AXBdCiEbKKtlFH3Sr7PdmBLoNI o+Kk7KKH8vq7VtVGosMdIfYG9pks7CHNhKKhUxB7Y6xJPzV9D2IYhyYe4TICLqVEUtPjDeEIAGOHpoQV 5NIT1zbbM5MF6XxCQaECCtBMXxnAHxLCe5X57qkTFbPOmtYH5WBUV+Saman+Wi4VWVEnXDBnHSWjQhOvSZ LOBlZmS20ygRYnCDXvFVYwPWNjCk1FEBIgA9XhxzPr aDqywtXiGGYbBJUYYT9ETUfnshBrwZDpdLevYN80nExsGA7EZp9BZqZrLC7vgy0OuUElTh8FLVXaMZ1B UQOkZMRoHDVmPCS2YYXqBrAcXSeeNODnVVUyCCH6PVYbTOEjUU6HJnShTFQjSNj5EeWwOZEjSPEctg9G LTBfRJYdWTL6YkFrNZXeQZKyYHriRKVnKWGhJKghEK WrLUIoDW2CPgGdCONpRYY1TWMsBJIbOQAinz7QUKIiNHThSpj2VJItWOGfESFzHMuiTQBiSLI4Wmd8PS MeJTSbCS7XIaByRFCtNRZ0VFjvKAUtCOGhrg6DXPQmLWMnSab8EtDwOSSjYYCfZKyvLXFeERC4EPXvTX CvOGGnDF6RXvFfLOKlAMqoPmXvFMWsJDXrvh8HJDIy MDJrWYM8YdCiZMLuHEHhIVshOABcQSM0Zzq5SOYvHYAhVT4PHjYzWYAlWTb2HDGfEQPdNMMucs1AIIHf RCBoCUHsUAFrQTYbWDBlRDodJPYaHML2BwF3GYZmNJXkVQ2JBgAyAENoSWL2PxhwTILiVIPueq3ITBCn CGPcHIMkXRZeVSXdEKJgBKrgRJAfJYQ1UtA5MQFfYP McSO1DKyXdJAChEMLeJPkuESClYYUbtv1XXQWpOJFsTeF9DgMcJJWoPFCiGCssXUWzCLR1ZlR4PIYqCI RxLI7LCaTxTQRmENd4JYoaJWSnQXQvxm1OBIJpMHTzQbn2IzIiKFBgBJZcYPyrKRXnVWE0EBF9XAYiUN SwRU5EBfPkWNRmPAutGcvqFCZjNWManu4COJYtZTDz WWM2EFJkHIAnPLEcSTlhNQJuQJI9HGceWXMoEQJcCM2DNxSpEZKgMCvgWLfzNJIsZPTbca7WHGZzTBBq CHE2CGKhVAFzCIYbYCjkZNVtVSD4Gmg5NDYxVJJqOT2TKaGhFOPcReDaRmEiOKDtHGUxtk8OJGUbDJFw VKQ4XjKtZJBeBJJiYPh2msPxfBYjVSd2JS3KU8Wikh RxVmSYGq3Bm829JADmHMIhCn2US2hjQl0uJFMnNRPQLm8PIZh2Qwv8LLL5YootRwV2FvLaCVv7LeZ7QW G2UJncUZJ2XzL+PQdyPrU6Hni0RUO8NQrxXjRfZJwaRsi8DrTaJQXhKhPsLf9bYQUBAh7+DQpzdGFydH qsYETQQrVcALD0RNqiSOWESl7P ID Date Data Source [id number] 08/29/2021 10:56:00 AM EDT [facility] ([facility], ) Name Value Range Interpretation Code Description Data Jennifer rce(s) Supporting Document(s) PDFReport Laboratory test result [facility] ([facility], ) FVC-Pred 3.45 L [facility] ([facility], ) FVC-%Pred-Pre 79 L [facility] ([facility]) FVC-Pre 2.76 L [facility] ([facility]) Fev1-Pred 2.83 L [facility] ([facility]) Fev1-Pre 2.24 L [facility] ([facility]) FVC-LLN 2.80 L [facility] ([facility]) Fev1-%Pred-Pre 78 L [facility] ([facility]) Fev6-Pred 3.40 L [facility] ([facility]) Fev1-LLN 2.28 L [facility] ([facility]) Fev6-Pre 2.76 L [facility] ([facility]) Fev6-%Pred-Pre 81 L [facility] ([facility]) Xxg5qoc-Spqg 82 % [facility] ([facility]) Fev6-LLN 2.76 L [facility] ([facility]) Sbk5ljp-Xek 81 % [facility] ([facility]) Vih0xpe-YJO 72 % [facility] ([facility]) Bps1iqu-%Pred-Pre 98 % [facility] ([facility]) Qrp9roe-Szjl 98 % [facility] ([facility]) Psk3wgr-%Pred-Pre 101 % [facility] ([facility]) FEFMax-Pred 6.67 L/E/sec [facility] ([facility]) Hvz5whl-Mtb 100 % [facility] ([facility]) FEFMax-Pre 3.45 L/E/sec [facility] ([facility], ) FEFMax-%Pred-Pre 51 L/E/sec [facility] ([facility]) FEFMax-LLN 5.06 L/E/sec [facility] ([facility]) [id number]-Gneu 3.02 L/E/sec [facility] ([facility]) Mec2256-Kcv 2.29 L/E/sec [facility] ([facility]) Dfd1169-%Pred-Pre 76 L/E/sec [facility] ([facility]) Qts9624-ORH 1.85 L/E/sec [facility] ([facility]) Kmw5aoe3-Idu 81 % [facility] ([facility]) ExpTime-Pre 6.47 sec [facility] ([facility]) Cwu1dty7-Laeo 84 % [facility] ([facility], ) Qpg8utm6-CUP 75 % [facility] ([facility]) Bpf9nnw0-%Pred-Pre 96 % [facility] ([facility]) ID Date Data Source [id number] 06/16/2021 10:19:00 AM EDT [facility]) Name Value Range Interpretation Code Description Data Jennifer rce(s) Supporting Document(s) total 25(oh) vitamin D 73.5 NG/mL 30.0-100.0 Total 25(Oh) Vitamin D [facility]) ID Date Data Source [id number] 06/16/2021 10:19:00 AM EDT [facility]) Name Value Range Interpretation Code Description Data Jennifer rce(s) Supporting Document(s) cholesterol level 127 mg/dL <200 Cholesterol Level [facility] ([facility]) triglycerides level 89 mg/dL <150 Triglycerides Le abhijit [facility] ([facility]) Cholesterol in LDL [Mass/volume] in Serum or Plasma 52 mg/dL <1 00 LDL Cholesterol [facility] ([facility]) HDL cholesterol 57 mg/dL >40 HDL Cholesterol [facility] ([facility]) non-HDL-C 70 mg/dL Non-hdl-c [facility] ([facility]) cholesterol risk ratio <5 Cholesterol R isk Ratio [facility] ([facility]) ID Date Data Source [id number] 06/16/2021 10:19:00 AM EDT [facility] ([facility]) Name Value Range Interpretation Code Description Data Jennifer rce(s) Supporting Document(s) glucose, fasting 101 mg/dL 70-100 Above high normal Glucose, Fas ting [facility] ([facility]) creatinine for GFR 0.74 mg/dL 0.55-1.30 Creatinine for GF R [facility] ([facility]) blood urea nitrogen 13 mg/dL 7-18 Blood Urea Nitro gen [facility] ([facility]) glomerular filtration rate > 60.0 >60 [place] r Filtration Rate [facility] ([facility]) sodium level 145 mEq/L 136-145 Sodium Level [facility] ([facility]) potassium serum 3.7 mEq/L 3.5-5.1 Potassium Serum [facility] ([facility]) carbon dioxide level 27 mEq/L 21-32 Carbon Dioxide Level [facility] ([facility]) chloride level 111 mEq/L 98-107 Above high normal Chloride Level [facility] ([facility]) anion gap 7 mEq/L 8-16 Below low normal Anion Gap [facility] ( [facility]) calcium level 8.7 mg/dL 8.5-10.1 Calcium Level [facility] ( [facility]) ALT/SGPT 35 U/L 12-78 ALT/SGPT [facility] ([facility]) AST/SGOT 20 U/L 7-37 AST/SGOT [facility] ([facility]) alkaline phosphatase 97 U/L 45-117 Alkaline Phosph atase [facility] ([facility]) bilirubin,total 0.5 mg/dL 0.2-1.0 Bilirubin,total [facility]) total protein 7.0 gm/dL 6.4-8.2 Total Protein [facility] ( [facility]) albumin 3.7 gm/dL 3.2-5.2 Albumin [facility] ([facility]) albumin/globulin ratio 1.2-2.2 Below low normal Albumin /globulin Ratio [facility] ([facility]) ID Date Data Source [id number] 06/16/2021 10:19:00 AM EDT [facility] ([facility]) Name Value Range Interpretation Code Description Data Jennifer rce(s) Supporting Document(s) white blood count 5.0 10 4.0-10.0 White Blood Count [facility] ([facility]) red blood count 4.42 10 4.00-5.40 Red Blood Count [facility] ([facility]) hemoglobin 13.0 g/dL 12.0-15.5 Hemoglobin [facility] ([facility]) hematocrit 40.4 % 36.0-47.0 Hematocrit [facility] ([facility]) mean corpuscular volume 91.4 fL 80.0-96.0 Mean Corpusc ular Volume [facility] ([facility]) mean corpuscular HGB conc 32.2 g/dL 32.0-36.5 Mean Corpu scular HGB Conc [facility] ([facility]) mean corpuscular hemoglobin 29.4 pg 27.0-33.0 Mean Cor puscular Hemoglobin [facility] ([facility]) red cell distribution width 13.7 % 11.5-14.5 Red Cell Distribution Width [facility] ([facility]) platelet count, automated 241 10 150-450 Platelet C ount, Automated [facility] ([facility]) neutrophils % 49.3 % 36.0-66.0 Neutrophils % [facility] ( [facility]) lymph % 37.4 % 24.0-44.0 Lymph % [facility] ([facility]) mono % 10.5 % 2.0-8.0 Above high normal [place] % [facility] ([facility]) eos % 2.2 % 0.0-3.0 Eos % [facility] ([facility]) immature granulocyte % 0.2 % 0-3.0 Immature Gran ulocyte % [facility] ([facility]) baso % 0.4 % 0.0-1.0 Baso % [facility] ([facility]) nucleated red blood cell % 0.0 % 0-0 Nucleated Red Blood Cell % [facility] ([facility]) lymph # 1.9 10 1.5-5.0 Lymph # [facility] ([facility]) neutrophils # 2.5 10 1.5-8.5 Neutrophils # [facility] ( [facility]) mono # 0.5 10 0.0-0.8 [place] # [facility] ([facility]) eos # 0.1 10 0.0-0.5 Eos # [facility] ([facility]) baso # 0.0 10 0.0-0.2 Baso # [facility] ([facility]) ID Date Data Source [id number] 06/16/2021 10:19:00 AM EDT [facility] ([facility]) Name Value Range Interpretation Code Description Data Jennifer rce(s) Supporting Document(s) total 25(oh) vitamin D 73.5 NG/mL 30.0-100.0 Total 25(Oh) Vitamin D [facility] ([facility]) ID Date Data Source [id number] 06/16/2021 10:19:00 AM EDT [facility] ([facility]) Name Value Range Interpretation Code Description Data Jennifer rce(s) Supporting Document(s) triglycerides level 89 mg/dL <150 Triglycerides Le abhijit [facility] ([facility]) cholesterol level 127 mg/dL <200 Cholesterol Level [facility] ([facility]) HDL cholesterol 57 mg/dL >40 HDL Cholesterol AT[facility] NA ([facility]) Cholesterol in LDL [Mass/volume] in Serum or Plasma 52 mg/dL <1 00 LDL Cholesterol [facility] ([facility]) non-HDL-C 70 mg/dL Non-hdl-c [facility] ([facility]) cholesterol risk ratio <5 Cholesterol R isk Ratio [facility] ([facility]) ID Date Data Source [id number] 06/16/2021 10:19:00 AM EDT [facility] ([facility]) Name Value Range Interpretation Code Description Data Jennifer rce(s) Supporting Document(s) glucose, fasting 101 mg/dL 70-100 Above high normal Glucose, Fas ting [facility] ([facility]) creatinine for GFR 0.74 mg/dL 0.55-1.30 Creatinine for GF R [facility] ([facility]) blood urea nitrogen 13 mg/dL 7-18 Blood Urea Nitro gen [facility] ([facility]) sodium level 145 mEq/L 136-145 Sodium Level [facility] ([facility]) glomerular filtration rate > 60.0 >60 [place]omer[place] r Filtration Rate [facility] ([facility]) potassium serum 3.7 mEq/L 3.5-5.1 Potassium Serum [facility] ([facility]) chloride level 111 mEq/L 98-107 Above high normal Chloride Level [facility] ([facility]) carbon dioxide level 27 mEq/L 21-32 Carbon Dioxide Level [facility] ([facility]) calcium level 8.7 mg/dL 8.5-10.1 Calcium Level [facility] ( [facility]) anion gap 7 mEq/L 8-16 Below low normal Anion Gap [facility] ( [facility]) ALT/SGPT 35 U/L 12-78 ALT/SGPT [facility] ([facility]) AST/SGOT 20 U/L 7-37 AST/SGOT [facility] ([facility]) bilirubin,total 0.5 mg/dL 0.2-1.0 Bilirubin,total [facility] ([facility]) alkaline phosphatase 97 U/L 45-117 Alkaline Phosph atase [facility] ([facility]) albumin 3.7 gm/dL 3.2-5.2 Albumin [facility] ([facility]) total protein 7.0 gm/dL 6.4-8.2 Total Protein [facility] ( [facility]) albumin/globulin ratio 1.2-2.2 Below low normal Albumin /globulin Ratio [facility] ([facility]) ID Date Data Source [id number] 06/16/2021 10:19:00 AM EDT [facility] ([facility]) Name Value Range Interpretation Code Description Data Jennifer rce(s) Supporting Document(s) white blood count 5.0 10 4.0-10.0 White Blood Count [facility] ([facility]) red blood count 4.42 10 4.00-5.40 Red Blood Count AT[facility] NA ([facility]) hemoglobin 13.0 g/dL 12.0-15.5 Hemoglobin [facility] ([facility]) hematocrit 40.4 % 36.0-47.0 Hematocrit [facility] ([facility]) mean corpuscular volume 91.4 fL 80.0-96.0 Mean Corpusc ular Volume [facility] ([facility]) mean corpuscular hemoglobin 29.4 pg 27.0-33.0 Mean Cor puscular Hemoglobin [facility] ([facility]) mean corpuscular HGB conc 32.2 g/dL 32.0-36.5 Mean Corpu scular HGB Conc [facility] ([facility]) platelet count, automated 241 10 150-450 Platelet C ount, Automated [facility] ([facility]) red cell distribution width 13.7 % 11.5-14.5 Red Cell Distribution Width [facility] ([facility]) neutrophils % 49.3 % 36.0-66.0 Neutrophils % [facility] ( [facility]) lymph % 37.4 % 24.0-44.0 Lymph % [facility] ([facility]) mono % 10.5 % 2.0-8.0 Above high normal [place] % [facility] ([facility]) eos % 2.2 % 0.0-3.0 Eos % [facility] ([facility]) baso % 0.4 % 0.0-1.0 Baso % [facility] ([facility]) immature granulocyte % 0.2 % 0-3.0 Immature Gran ulocyte % [facility] ([facility]) neutrophils # 2.5 10 1.5-8.5 Neutrophils # [facility] ( [facility]) nucleated red blood cell % 0.0 % 0-0 Nucleated Red Blood Cell % [facility] ([facility]) lymph # 1.9 10 1.5-5.0 Lymph # [facility] ([facility]) mono # 0.5 10 0.0-0.8 [place] # [facility] ([facility]) eos # 0.1 10 0.0-0.5 Eos # [facility] ([facility]) baso # 0.0 10 0.0-0.2 Baso # [facility] ([facility]) ID Date Data Source [id number] 06/02/2021 05:25:00 PM EDT [place] ([facility]) Name Value Range Interpretation Code Description Data Jennifer rce(s) Supporting Document(s) istat troponin 0.00 NG/mL 0.00-0.08 Istat Troponin [place] ([facility]) ID Date Data Source [id number] 06/02/2021 05:25:00 PM EDT [place] ([facility]) Name Value Range Interpretation Code Description Data Jennifer rce(s) Supporting Document(s) istat troponin 0.00 NG/mL 0.00-0.08 Istat Troponin [place] ([facility]) ID Date Data Source [id number] 06/02/2021 03:54:00 PM EDT [facility]) Name Value Range Interpretation Code Description Data Jennifer rce(s) Supporting Document(s) free T4 0.77 NG/dL 0.76-1.46 Free T4 [place] ([facility]) ID Date Data Source [id number] 06/02/2021 03:54:00 PM EDT [facility]) Name Value Range Interpretation Code Description Data Jennifer rce(s) Supporting Document(s) thyroid stimulating hormone 1.810 uIU/mL 0.358-3.740 Thyroid Stimulating Hormone [place] ([facility]) ID Date Data Source [id number] 06/02/2021 03:54:00 PM EDT [place] ([facility]) Name Value Range Interpretation Code Description Data Jennifer rce(s) Supporting Document(s) lipase 73 U/L 73-393 Lipase [place] ([facility]) ID Date Data Source [id number] 06/02/2021 03:54:00 PM EDT [place] ([facility]) Name Value Range Interpretation Code Description Data Jennifer rce(s) Supporting Document(s) nt-pro BNP 85 pg/mL <125 Nt-pro BNP [place] ([facility]) ID Date Data Source [id number] 06/02/2021 03:54:00 PM EDT [facility]) Name Value Range Interpretation Code Description Data Jennifer rce(s) Supporting Document(s) blood urea nitrogen 13 mg/dL 7-18 Blood Urea Nitro gen [place] ([facility]) glucose, fasting 93 mg/dL 70-100 Glucose, Fasting AT [facility]) creatinine for GFR 0.84 mg/dL 0.55-1.30 Creatinine for GF R [place] ([facility]) glomerular filtration rate > 60.0 >60 [place] r Filtration Rate [place] ([facility]) potassium serum 4.5 mEq/L 3.5-5.1 Potassium Serum [place] ([facility]) sodium level 140 mEq/L 136-145 Sodium Level [place] ([facility]) carbon dioxide level 30 mEq/L 21-32 Carbon Dioxide Level [place] ([facility]) chloride level 106 mEq/L 98-107 Chloride Level [place] ([facility]) calcium level 8.7 mg/dL 8.5-10.1 Calcium Level [place] ( [facility]) anion gap 4 mEq/L 8-16 Below low normal Anion Gap [place] ( [facility]) ID Date Data Source [id number] 06/02/2021 03:54:00 PM EDT [facility]) Name Value Range Interpretation Code Description Data Jennifer rce(s) Supporting Document(s) AST/SGOT 21 U/L 7-37 AST/SGOT [place] ([facility]) ALT/SGPT 35 U/L 12-78 ALT/SGPT [place] ([facility]) alkaline phosphatase 99 U/L 45-117 Alkaline Phosph atase [place] ([facility]) bilirubin,total 0.4 mg/dL 0.2-1.0 Bilirubin,total AT[facility] NA ([facility]) bilirubin,direct 0.2 mg/dL 0.0-0.2 Bilirubin,direct AT [place] ([facility]) total protein 7.1 gm/dL 6.4-8.2 Total Protein [place] ( [facility]) albumin 3.9 gm/dL 3.2-5.2 Albumin [place] ([facility]) albumin/globulin ratio 1.2-2.2 Albumin/globu justo Ratio [place] ([facility]) ID Date Data Source [id number] 06/02/2021 03:54:00 PM EDT [place] ([facility]) Name Value Range Interpretation Code Description Data Jennifer rce(s) Supporting Document(s) partial thromboplastin time 25.8 seconds 24.2-38.5 Partial Thromboplastin Time [place] ([facility]) ID Date Data Source [id number] 06/02/2021 03:54:00 PM EDT [place] ([facility]) Name Value Range Interpretation Code Description Data Jennifer rce(s) Supporting Document(s) prothrombin time 13.0 seconds 12.5-14.3 Prothrombin Time [place] ([facility]) INR Inr [place] ([facility]) ID Date Data Source [id number] 06/02/2021 03:54:00 PM EDT [place] ([facility]) Name Value Range Interpretation Code Description Data Jennifer rce(s) Supporting Document(s) white blood count 6.4 10 4.0-10.0 White Blood Count [place] ([facility]) red blood count 4.69 10 4.00-5.40 Red Blood Count AT[facility] NA ([facility]) hematocrit 43.1 % 36.0-47.0 Hematocrit [place] ([facility]) hemoglobin 13.9 g/dL 12.0-15.5 Hemoglobin [place] ([facility]) mean corpuscular hemoglobin 29.6 pg 27.0-33.0 Mean Cor puscular Hemoglobin [place] ([facility]) mean corpuscular volume 91.9 fL 80.0-96.0 Mean Corpusc ular Volume [place] ([facility]) mean corpuscular HGB conc 32.3 g/dL 32.0-36.5 Mean Corpu scular HGB Conc [place] ([facility]) red cell distribution width 13.4 % 11.5-14.5 Red Cell Distribution Width [place] ([facility]) platelet count, automated 224 10 150-450 Platelet C ount, Automated [place] ([facility]) neutrophils % 60.1 % 36.0-66.0 Neutrophils % [place] ( [facility]) mono % 9.7 % 2.0-8.0 Above high normal [place] % [place] ([facility]) lymph % 27.8 % 24.0-44.0 Lymph % [place] ([facility]) baso % 0.5 % 0.0-1.0 Baso % [place] ([facility]) eos % 1.6 % 0.0-3.0 Eos % [place] ([facility]) nucleated red blood cell % 0.0 % 0-0 Nucleated Red Blood Cell % [place] ([facility]) immature granulocyte % 0.3 % 0-3.0 Immature Gran ulocyte % [place] ([facility]) neutrophils # 3.9 10 1.5-8.5 Neutrophils # [place] ( [facility]) lymph # 1.8 10 1.5-5.0 Lymph # [place] ([facility]) mono # 0.6 10 0.0-0.8 [place] # [facility] ([facility]) baso # 0.0 10 0.0-0.2 Baso # [facility] ([facility]) eos # 0.1 10 0.0-0.5 Eos # [facility] ([facility]) ID Date Data Source [id number] 06/02/2021 03:54:00 PM EDT [place] ([facility]) Name Value Range Interpretation Code Description Data Jennifer rce(s) Supporting Document(s) free T4 0.77 NG/dL 0.76-1.46 Free T4 [place] ([facility]) ID Date Data Source [id number] 06/02/2021 03:54:00 PM EDT [place] ([facility]) Name Value Range Interpretation Code Description Data Jennifer rce(s) Supporting Document(s) thyroid stimulating hormone 1.810 uIU/mL 0.358-3.740 Thyroid Stimulating Hormone [place] ([facility]) ID Date Data Source [id number] 06/02/2021 03:54:00 PM EDT [place] ([facility]) Name Value Range Interpretation Code Description Data Jennifer rce(s) Supporting Document(s) lipase 73 U/L 73-393 Lipase [place] ([facility]) ID Date Data Source [id number] 06/02/2021 03:54:00 PM EDT [place] ([facility]) Name Value Range Interpretation Code Description Data Jennifer rce(s) Supporting Document(s) nt-pro BNP 85 pg/mL <125 Nt-pro BNP [facility]) ID Date Data Source [id number] 06/02/2021 03:54:00 PM EDT [facility]) Name Value Range Interpretation Code Description Data Jennifer rce(s) Supporting Document(s) glucose, fasting 93 mg/dL 70-100 Glucose, Fasting AT [place] ([facility]) blood urea nitrogen 13 mg/dL 7-18 Blood Urea Nitro gen [place] ([facility]) creatinine for GFR 0.84 mg/dL 0.55-1.30 Creatinine for GF R [place] ([facility]) glomerular filtration rate > 60.0 >60 Glomerula r Filtration Rate [place] ([facility]) sodium level 140 mEq/L 136-145 Sodium Level [place] ([facility]) chloride level 106 mEq/L 98-107 Chloride Level [place] ([facility]) potassium serum 4.5 mEq/L 3.5-5.1 Potassium Serum [facility] ([facility]) anion gap 4 mEq/L 8-16 Below low normal Anion Gap [place] ( [facility]) carbon dioxide level 30 mEq/L 21-32 Carbon Dioxide Level [place] ([facility]) calcium level 8.7 mg/dL 8.5-10.1 Calcium Level [place] ( [facility]) ID Date Data Source [id number] 06/02/2021 03:54:00 PM EDT [place] ([facility]) Name Value Range Interpretation Code Description Data Jennifer rce(s) Supporting Document(s) AST/SGOT 21 U/L 7-37 AST/SGOT [place] ([facility]) ALT/SGPT 35 U/L 12-78 ALT/SGPT [place] ([facility]) bilirubin,total 0.4 mg/dL 0.2-1.0 Bilirubin,total [facility] ([facility]) alkaline phosphatase 99 U/L 45-117 Alkaline Phosph atase [place] ([facility]) bilirubin,direct 0.2 mg/dL 0.0-0.2 Bilirubin,direct AT [facility] ([facility]) total protein 7.1 gm/dL 6.4-8.2 Total Protein [place] ( [facility]) albumin 3.9 gm/dL 3.2-5.2 Albumin [place] ([facility]) albumin/globulin ratio 1.2-2.2 Albumin/globu justo Ratio [facility] ([facility]) ID Date Data Source [id number] 06/02/2021 03:54:00 PM EDT [place] ([facility]) Name Value Range Interpretation Code Description Data Jennifer rce(s) Supporting Document(s) partial thromboplastin time 25.8 seconds 24.2-38.5 Partial Thromboplastin Time [place] ([facility]) ID Date Data Source [id number] 06/02/2021 03:54:00 PM EDT [place] ([facility]) Name Value Range Interpretation Code Description Data Jennifer rce(s) Supporting Document(s) prothrombin time 13.0 seconds 12.5-14.3 Prothrombin Time [place] ([facility]) INR Inr [place] ([facility]) ID Date Data Source [id number] 06/02/2021 03:54:00 PM EDT [place] ([facility]) Name Value Range Interpretation Code Description Data Jennifer rce(s) Supporting Document(s) white blood count 6.4 10 4.0-10.0 White Blood Count [place] ([facility]) hemoglobin 13.9 g/dL 12.0-15.5 Hemoglobin [place] ([facility]) red blood count 4.69 10 4.00-5.40 Red Blood Count [facility] ([facility]) hematocrit 43.1 % 36.0-47.0 Hematocrit [place] ([facility]) mean corpuscular volume 91.9 fL 80.0-96.0 Mean Corpusc ular Volume [place] ([facility]) mean corpuscular hemoglobin 29.6 pg 27.0-33.0 Mean Cor puscular Hemoglobin [place] ([facility]) mean corpuscular HGB conc 32.3 g/dL 32.0-36.5 Mean Corpu scular HGB Conc [place] ([facility]) red cell distribution width 13.4 % 11.5-14.5 Red Cell Distribution Width [place] ([facility]) platelet count, automated 224 10 150-450 Platelet C ount, Automated [place] ([facility]) lymph % 27.8 % 24.0-44.0 Lymph % [place] ([facility]) neutrophils % 60.1 % 36.0-66.0 Neutrophils % [place] ( [facility]) mono % 9.7 % 2.0-8.0 Above high normal [place] % [place] ([facility]) eos % 1.6 % 0.0-3.0 Eos % [place] ([facility]) baso % 0.5 % 0.0-1.0 Baso % [place] ([facility]) immature granulocyte % 0.3 % 0-3.0 Immature Gran ulocyte % [place] ([facility]) nucleated red blood cell % 0.0 % 0-0 Nucleated Red Blood Cell % [place] ([facility]) neutrophils # 3.9 10 1.5-8.5 Neutrophils # [place] ( [facility]) lymph # 1.8 10 1.5-5.0 Lymph # [place] ([facility]) mono # 0.6 10 0.0-0.8 [place] # [place] ([facility]) eos # 0.1 10 0.0-0.5 Eos # [place] ([facility]) baso # 0.0 10 0.0-0.2 Baso # [place] ([facility]) ID Date Data Source [id number] 05/25/2021 12:17:00 PM EDT [facility] ([facility], ) Name Value Range Interpretation Code Description Data Jennifer rce(s) Supporting Document(s) FVC-Pre 2.15 L [facility] ([facility], ) FVC-Pred 3.47 L [facility] ([facility], ) PDFReport Laboratory test result [facility] ([facility], ) FVC-%Pred-Pre 62 L [facility] ([facility], ) FVC-LLN 2.82 L [facility] ([facility], ) Fev1-Pred 2.85 L [facility] ([facility], ) Fev1-Pre 1.77 L [facility] ([facility], ) Fev1-%Pred-Pre 62 L [facility] ([facility], ) Fev6-Pred 3.41 L [facility] ([facility], ) Fev1-LLN 2.30 L [facility] ([facility]) Fev6-LLN 2.77 L [facility] ([facility], ) Fev6-Pre 2.15 L [facility] ([facility], ) Fev6-%Pred-Pre 63 L [facility] ([facility], ) Scp1bqr-%Pred-Pre 99 % [facility] ([facility]) Tze7jwb-Wffa 83 % [facility] ([facility]) Hac4gme-Iuu 82 % [facility] ([facility]) Vky4rlj-NHV 73 % [facility] ([facility]) Zrm3dlv-Frwc 98 % [facility] ([facility], ) Jei1uvk-%Pred-Pre 101 % [facility] ([facility]) FEFMax-Pred 6.68 L/E/sec [facility] ([facility], ) Uyc7iur-Tyn 100 % [facility] ([facility]) FEFMax-Pre 3.32 L/E/sec [facility] ([facility]) FEFMax-%Pred-Pre 49 L/E/sec [facility] ([facility]) FEFMax-LLN 5.07 L/E/sec [facility] ([facility]) Wvl5312-Uyp 1.96 L/E/sec [facility] ([facility], ) Umi7974-Cuug 3.05 L/E/sec [facility] ([facility]) Ihb3144-WMA 1.89 L/E/sec [facility] ([facility]) ExpTime-Pre 6.28 sec [facility] ([facility]) Uye9096-%Pred-Pre 64 L/E/sec [facility] ([facility]) Myw1efx9-Jgnr 84 % [facility] ([facility], ) Ggn0lpb4-Hud 82 % [facility] ([facility]) Vms1xef0-%Pred-Pre 97 % [facility] ([facility]) Hgy3wrx9-NCN 75 % [facility] ([facility]) ID Date Data Source [id number] 05/21/2021 02:09:00 PM EDT [facility]) Name Value Range Interpretation Code Description Data Jennifer rce(s) Supporting Document(s) glucose, fasting 99 mg/dL 70-100 Glucose, Fasting AT [facility]) blood urea nitrogen 9 mg/dL 7-18 Blood Urea Nitro gen [facility]) creatinine for GFR 0.76 mg/dL 0.55-1.30 Creatinine for GF R [facility]) sodium level 140 mEq/L 136-145 Sodium Level [place] ([facility]) glomerular filtration rate > 60.0 >60 Glomerula r Filtration Rate [place] ([facility]) potassium serum 4.1 mEq/L 3.5-5.1 Potassium Serum [facility]) chloride level 108 mEq/L 98-107 Above high normal Chloride Level [place] ([facility]) carbon dioxide level 26 mEq/L 21-32 Carbon Dioxide Level [facility]) anion gap 6 mEq/L 8-16 Below low normal Anion Gap [facility]) calcium level 9.1 mg/dL 8.5-10.1 Calcium Level [facility]) ID Date Data Source [id number] 05/21/2021 02:09:00 PM EDT [facility]) Name Value Range Interpretation Code Description Data Jennifer rce(s) Supporting Document(s) CPK creatine phosphokinase 76 U/L 26-192 CPK Creat ine Phosphokinase [facility]) CK-mb value mass < 1.0 <3.6 CK-mb Value Mass AT [place] ([facility]) mb/CK relative index < or =4 mb/CK Relative Index [place] ([facility]) troponin I < 0.02 < 0.10 Troponin I [place] ([facility]) ID Date Data Source [id number] 05/21/2021 02:09:00 PM EDT [place] ([facility]) Name Value Range Interpretation Code Description Data Jennifer rce(s) Supporting Document(s) white blood count 5.8 10 4.0-10.0 White Blood Count [place] ([facility]) hemoglobin 14.0 g/dL 12.0-15.5 Hemoglobin [place] ([facility]) red blood count 4.76 10 4.00-5.40 Red Blood Count [facility] ([facility]) hematocrit 42.5 % 36.0-47.0 Hematocrit [place] ([facility]) mean corpuscular volume 89.3 fL 80.0-96.0 Mean Corpusc ular Volume [place] ([facility]) mean corpuscular hemoglobin 29.4 pg 27.0-33.0 Mean Cor puscular Hemoglobin [place] ([facility]) mean corpuscular HGB conc 32.9 g/dL 32.0-36.5 Mean Corpu scular HGB Conc [place] ([facility]) red cell distribution width 13.3 % 11.5-14.5 Red Cell Distribution Width [place] ([facility]) platelet count, automated 239 10 150-450 Platelet C ount, Automated [place] ([facility]) lymph % 41.1 % 24.0-44.0 Lymph % [place] ([facility]) neutrophils % 46.6 % 36.0-66.0 Neutrophils % [place] ( [facility]) eos % 1.5 % 0.0-3.0 Eos % [place] ([facility]) mono % 10.3 % 2.0-8.0 Above high normal [place] % [facility] ([facility]) baso % 0.3 % 0.0-1.0 Baso % [place] ([facility]) immature granulocyte % 0.2 % 0-3.0 Immature Gran ulocyte % [place] ([facility]) nucleated red blood cell % 0.0 % 0-0 Nucleated Red Blood Cell % [place] ([facility]) neutrophils # 2.7 10 1.5-8.5 Neutrophils # [place] ( [facility]) lymph # 2.4 10 1.5-5.0 Lymph # [place] ([facility]) eos # 0.1 10 0.0-0.5 Eos # [place] ([facility]) mono # 0.6 10 0.0-0.8 [place] # [facility] ([facility]) baso # 0.0 10 0.0-0.2 Baso # [place] ([facility]) ID Date Data Source [id number] 05/21/2021 02:09:00 PM EDT [place] ([facility]) Name Value Range Interpretation Code Description Data Jennifer rce(s) Supporting Document(s) glucose, fasting 99 mg/dL 70-100 Glucose, Fasting AT [facility]) blood urea nitrogen 9 mg/dL 7-18 Blood Urea Nitro gen [place] ([facility]) creatinine for GFR 0.76 mg/dL 0.55-1.30 Creatinine for GF R [place] ([facility]) glomerular filtration rate > 60.0 >60 Glomerula r Filtration Rate [place] ([facility]) potassium serum 4.1 mEq/L 3.5-5.1 Potassium Serum [facility] NA ([facility]) sodium level 140 mEq/L 136-145 Sodium Level [place] (No [facility]) carbon dioxide level 26 mEq/L 21-32 Carbon Dioxide Level [place] ([facility]) chloride level 108 mEq/L 98-107 Above high normal Chloride Level [place] ([facility]) anion gap 6 mEq/L 8-16 Below low normal Anion Gap [place] ( [facility]) calcium level 9.1 mg/dL 8.5-10.1 Calcium Level [place] ( [facility]) ID Date Data Source [id number] 05/21/2021 02:09:00 PM EDT [place] ([facility]) Name Value Range Interpretation Code Description Data Jennifer rce(s) Supporting Document(s) CPK creatine phosphokinase 76 U/L 26-192 CPK Creat ine Phosphokinase [place] ([facility]) CK-mb value mass < 1.0 <3.6 CK-mb Value Mass [facility] [place] ([facility]) mb/CK relative index < or =4 mb/CK Relative Index [place] ([facility]) troponin I < 0.02 < 0.10 Troponin I [place] ([facility]) ID Date Data Source [id number] 05/21/2021 02:09:00 PM EDT [facility] ([facility]) Name Value Range Interpretation Code Description Data Jennifer rce(s) Supporting Document(s) white blood count 5.8 10 4.0-10.0 White Blood Count [place] ([facility]) red blood count 4.76 10 4.00-5.40 Red Blood Count [facility] ([facility]) hemoglobin 14.0 g/dL 12.0-15.5 Hemoglobin [place] ([facility]) hematocrit 42.5 % 36.0-47.0 Hematocrit [place] ([facility]) mean corpuscular volume 89.3 fL 80.0-96.0 Mean Corpusc ular Volume [place] ([facility]) mean corpuscular hemoglobin 29.4 pg 27.0-33.0 Mean Cor puscular Hemoglobin [place] ([facility]) mean corpuscular HGB conc 32.9 g/dL 32.0-36.5 Mean Corpu scular HGB Conc [facility] ([facility]) red cell distribution width 13.3 % 11.5-14.5 Red Cell Distribution Width [place] ([facility]) platelet count, automated 239 10 150-450 Platelet C ount, Automated [place] ([facility]) neutrophils % 46.6 % 36.0-66.0 Neutrophils % [place] ( [facility]) lymph % 41.1 % 24.0-44.0 Lymph % [place] ([facility]) mono % 10.3 % 2.0-8.0 Above high normal [place] % [facility] ([facility]) eos % 1.5 % 0.0-3.0 Eos % [place] ([facility]) baso % 0.3 % 0.0-1.0 Baso % [place] ([facility]) immature granulocyte % 0.2 % 0-3.0 Immature Gran ulocyte % [facility] ([facility]) neutrophils # 2.7 10 1.5-8.5 Neutrophils # [place] ( [facility]) nucleated red blood cell % 0.0 % 0-0 Nucleated Red Blood Cell % [facility] ([facility]) lymph # 2.4 10 1.5-5.0 Lymph # [place] ([facility]) mono # 0.6 10 0.0-0.8 [place] # [facility] ([facility]) eos # 0.1 10 0.0-0.5 Eos # [place] ([facility]) baso # 0.0 10 0.0-0.2 Baso # [facility] ([facility]) ID Date Data Source [id number] 05/21/2021 02:03:00 PM EDT [place] ([facility]) Name Value Range Interpretation Code Description Data Jennifer rce(s) Supporting Document(s) bedside glucose 104 mg/dL 70-105 Bedside Glucose [facility] NA ([facility]) ID Date Data Source [id number] 05/21/2021 02:03:00 PM EDT [place] ([facility]) Name Value Range Interpretation Code Description Data Jennifer rce(s) Supporting Document(s) bedside glucose 104 mg/dL 70-105 Bedside Glucose [facility] ([facility]) ID Date Data Source [id number] 05/04/2021 06:50:00 PM EDT [place] ([facility]) Name Value Range Interpretation Code Description Data Jennifer rce(s) Supporting Document(s) istat HCT 40.0 % 38.0-51.0 Istat HCT [place] ([facility]) istat glucose 98 mg/dL 70-105 Istat Glucose [place] ( [facility]) istat sodium 140 mEq/L 136-145 Istat Sodium [place] (No [facility]) istat Ca++ 4.7 mg/dL 4.5-5.3 Istat Ca++ [place] ([facility]) istat potassium 4.5 mEq/L 3.5-5.1 Istat Potassium [facility] ([facility]) istat CO2 26.0 mm/L 23.0-27.0 Istat CO2 [place] ([facility]) istat chloride 105 mEq/L 98-109 Istat Chloride [place] ([facility]) istat BUN 18 mg/dL 8-26 Istat BUN [place] ([facility]) istat creatinine 0.8 mg/dL 0.6-1.3 Istat Creatinine AT [facility] ([facility]) ID Date Data Source [id number] 05/04/2021 06:50:00 PM EDT [place] ([facility]) Name Value Range Interpretation Code Description Data Jennifer rce(s) Supporting Document(s) istat HCT 40.0 % 38.0-51.0 Istat HCT [place] ([facility]) istat glucose 98 mg/dL 70-105 Istat Glucose [place] ( [facility]) istat potassium 4.5 mEq/L 3.5-5.1 Istat Potassium [facility] NA ([facility]) istat sodium 140 mEq/L 136-145 Istat Sodium [place] ([facility]) istat chloride 105 mEq/L 98-109 Istat Chloride [place] ([facility]) istat Ca++ 4.7 mg/dL 4.5-5.3 Istat Ca++ [place] ([facility]) istat CO2 26.0 mm/L 23.0-27.0 Istat CO2 [place] ([facility]) istat creatinine 0.8 mg/dL 0.6-1.3 Istat Creatinine AT [facility] ([facility]) istat BUN 18 mg/dL 8-26 Istat BUN [place] ([facility]) ID Date Data Source [id number] 05/04/2021 06:49:00 PM EDT [facility] ([facility]) Name Value Range Interpretation Code Description Data Jennifer rce(s) Supporting Document(s) lipase 87 U/L 73-393 Lipase [facility] ([facility]) ID Date Data Source [id number] 05/04/2021 06:49:00 PM EDT [place] ([facility]) Name Value Range Interpretation Code Description Data Jennifer rce(s) Supporting Document(s) nt-pro BNP 107 pg/mL <125 Nt-pro BNP [facility] ([facility]) ID Date Data Source [id number] 05/04/2021 06:49:00 PM EDT [place] ([facility]) Name Value Range Interpretation Code Description Data Jennifer rce(s) Supporting Document(s) AST/SGOT 12 U/L 7-37 AST/SGOT [place] ([facility]) ALT/SGPT 22 U/L 12-78 ALT/SGPT [place] ([facility]) alkaline phosphatase 100 U/L 45-117 Alkaline Phosph atase [facility] ([facility]) bilirubin,total 0.4 mg/dL 0.2-1.0 Bilirubin,total ATHE NA ([facility]) albumin 4.0 gm/dL 3.2-5.2 Albumin [place] ([facility]) total protein 7.2 gm/dL 6.4-8.2 Total Protein [place] ( [facility]) bilirubin,direct 0.1 mg/dL 0.0-0.2 Bilirubin,direct AT [facility] ([facility]) albumin/globulin ratio 1.2-2.2 Albumin/globu justo Ratio [place] ([facility]) ID Date Data Source [id number] 05/04/2021 06:49:00 PM EDT [place] ([facility]) Name Value Range Interpretation Code Description Data Jennifer rce(s) Supporting Document(s) white blood count 6.1 10 4.0-10.0 White Blood Count [place] ([facility]) hemoglobin 14.1 g/dL 12.0-15.5 Hemoglobin [place] ([facility]) red blood count 4.79 10 4.00-5.40 Red Blood Count ATHE ([facility]) hematocrit 45.0 % 36.0-47.0 Hematocrit [place] ([facility]) mean corpuscular volume 93.9 fL 80.0-96.0 Mean Corpusc ular Volume [place] ([facility]) mean corpuscular HGB conc 31.3 g/dL 32.0-36.5 Below low fely l Mean Corpuscular HGB Conc [place] ([facility]) mean corpuscular hemoglobin 29.4 pg 27.0-33.0 Mean Cor puscular Hemoglobin [place] ([facility]) red cell distribution width 12.9 % 11.5-14.5 Red Cell Distribution Width [place] ([facility]) platelet count, automated 216 10 150-450 Platelet C ount, Automated [place] ([facility]) neutrophils % 47.2 % 36.0-66.0 Neutrophils % [place] ( [facility]) lymph % 41.8 % 24.0-44.0 Lymph % [place] ([facility]) eos % 1.7 % 0.0-3.0 Eos % [place] ([facility]) mono % 8.6 % 2.0-8.0 Above high normal [place] % [place] ([facility]) baso % 0.5 % 0.0-1.0 Baso % [place] ([facility]) nucleated red blood cell % 0.0 % 0-0 Nucleated Red Blood Cell % [place] ([facility]) immature granulocyte % 0.2 % 0-3.0 Immature Gran ulocyte % [place] ([facility]) lymph # 2.5 10 1.5-5.0 Lymph # [place] ([facility]) neutrophils # 2.9 10 1.5-8.5 Neutrophils # [place] ( [facility]) mono # 0.5 10 0.0-0.8 [place] # [place] ([facility]) baso # 0.0 10 0.0-0.2 Baso # [place] ([facility]) eos # 0.1 10 0.0-0.5 Eos # [place] ([facility]) ID Date Data Source [id number] 05/04/2021 06:49:00 PM EDT [place] ([facility]) Name Value Range Interpretation Code Description Data Jennifer rce(s) Supporting Document(s) lipase 87 U/L 73-393 Lipase [place] ([facility]) ID Date Data Source [id number] 05/04/2021 06:49:00 PM EDT [place] ([facility]) Name Value Range Interpretation Code Description Data Jennifer rce(s) Supporting Document(s) nt-pro BNP 107 pg/mL <125 Nt-pro BNP [place] ([facility]) ID Date Data Source [id number] 05/04/2021 06:49:00 PM EDT [place] ([facility]) Name Value Range Interpretation Code Description Data Jennifer rce(s) Supporting Document(s) AST/SGOT 12 U/L 7-37 AST/SGOT [place] ([facility]) alkaline phosphatase 100 U/L 45-117 Alkaline Phosph atase [place] ([facility]) ALT/SGPT 22 U/L 12-78 ALT/SGPT [place] ([facility]) bilirubin,total 0.4 mg/dL 0.2-1.0 Bilirubin,total ATHE NA ([facility]) bilirubin,direct 0.1 mg/dL 0.0-0.2 Bilirubin,direct AT [place] ([facility]) total protein 7.2 gm/dL 6.4-8.2 Total Protein [place] ( [facility]) albumin 4.0 gm/dL 3.2-5.2 Albumin [place] ([facility]) albumin/globulin ratio 1.2-2.2 Albumin/globu justo Ratio [place] ([facility]) ID Date Data Source [id number] 05/04/2021 06:49:00 PM EDT [place] ([facility]) Name Value Range Interpretation Code Description Data Jennifer rce(s) Supporting Document(s) white blood count 6.1 10 4.0-10.0 White Blood Count [place] ([facility]) red blood count 4.79 10 4.00-5.40 Red Blood Count AT[place] ([facility]) hemoglobin 14.1 g/dL 12.0-15.5 Hemoglobin [place] ([facility]) hematocrit 45.0 % 36.0-47.0 Hematocrit [place] ([facility]) mean corpuscular hemoglobin 29.4 pg 27.0-33.0 Mean Cor puscular Hemoglobin [place] ([facility]) mean corpuscular volume 93.9 fL 80.0-96.0 Mean Corpusc ular Volume [place] ([facility]) mean corpuscular HGB conc 31.3 g/dL 32.0-36.5 Below low fely l Mean Corpuscular HGB Conc [place] ([facility]) red cell distribution width 12.9 % 11.5-14.5 Red Cell Distribution Width [place] ([facility]) neutrophils % 47.2 % 36.0-66.0 Neutrophils % [place] ( [facility]) platelet count, automated 216 10 150-450 Platelet C ount, Automated [place] ([facility]) eos % 1.7 % 0.0-3.0 Eos % [place] ([facility]) lymph % 41.8 % 24.0-44.0 Lymph % [place] ([facility]) mono % 8.6 % 2.0-8.0 Above high normal [place] % [place] ([facility]) nucleated red blood cell % 0.0 % 0-0 Nucleated Red Blood Cell % [place] ([facility]) neutrophils # 2.9 10 1.5-8.5 Neutrophils # [place] ( [facility]) baso % 0.5 % 0.0-1.0 Baso % [place] ([facility]) immature granulocyte % 0.2 % 0-3.0 Immature Gran ulocyte % [place] ([facility]) mono # 0.5 10 0.0-0.8 [place] # [place] ([facility]) eos # 0.1 10 0.0-0.5 Eos # [place] ([facility]) lymph # 2.5 10 1.5-5.0 Lymph # [place] ([facility]) baso # 0.0 10 0.0-0.2 Baso # [place] ([facility]) ID Date Data Source [id number] 05/04/2021 06:36:00 PM EDT [place] ([facility]) Name Value Range Interpretation Code Description Data Jennifer rce(s) Supporting Document(s) istat troponin 0.00 NG/mL 0.00-0.08 Istat Troponin [place] ([facility]) ID Date Data Source [id number] 05/04/2021 06:36:00 PM EDT [place] ([facility]) Name Value Range Interpretation Code Description Data Jennifer rce(s) Supporting Document(s) istat troponin 0.00 NG/mL 0.00-0.08 Istat Troponin [place] ([facility]) ID Date Data Source [id number] 03/26/2021 09:35:00 AM EDT [facility] Name Value Range Interpretation Code Description Data Jennifer rce(s) Supporting Document(s) SARS-CoV-2 (COVID-19) RNA [Presence] in Respiratory specimen by [facility] with probe detection Not Detected [facility] This lab was ordered by [facility] and reported by [facility]. ID Date Data Source [id number] 02/15/2021 02:12:51 PM EDT [facility] PCName: Scott CravajalDOB: 1980Provider: Jovanna Vasquez: 02/14/2021 Reason For VisitScott Carvajal is here today for bilateral hands. Scott has not had the Covid vaccine. Scott Carvajal is an established patient here for a new problem and Scott Carvajal is here for evaluation of NCS/EMG results. Other DOI/DOO: 12/2019- fall. Patient states their pain is a 9 out of 10. Patient states they are disabled. History of Present IllnessShe is here for an initial evaluation of an acute injury to her bilateral hands and wrist. She complains of pain. This is mainly on the right side. She fell while walking because she lost her balance. She landed forward on her hands and knees and both outstretched hands. This was approximately 2 weeks ago. She did have braces at home which she has been wearing. The left side hit get much better and really is hardly bothersome at all now but she does continue to have right wrist ulnar-sided pain. Results/DataXRays were ordered, obtained and interpreted today in the office. Indication: pain/dysfunction. Side: Bilateral Site: hand 4 views of each wrist were taken in the office today. No new fractures seen. 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 AssessmentSOS Assessment Dragon Form: Right wrist pain Plan X-Ray I Wrist - 3 views (XRays were ordered, obtained and interpreted today in theoffice. Indication: pain/dysfunction.); Status:Complete; Done: 14Feb2021 Perform:SOS19 (Hand); Due:28Feb2021; Last Updated By:Scarlet Bone; 02/14/2021 1:59:13 PM;Ordered; For:Pain in both wrists; Ordered By:Marielena Vasquez;Laterality: : Bilateral Plan, Assessment and Recommendation(s) Follow up as needed, if not improving, or getting worse. 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 She may have irritated this and broken up some of the stabilization of this ulnar styloid nonunion. She has a brace that she has been wearing which I have encouraged her to continue doing for another 2 weeks. I did offer her a cortisone injection which she declines. If she finds her symptoms do not improve, she will follow-up for cortisone injection. Work / School NoteThe percentage of temporary impairment is 0%. This document was dictated and electronically signed using zerobound software. A reasonable attempt at proof reading has been made to minimize errors. Please call with any questions. Signatures Electronically signed by : Marielena Vasquez NP; Feb 14 2021 2:27PM EST (Author) Electronically signed by : Shaq Lopez M.D.; Feb 15 2021 2:12PM EST Name Value Range Interpretation Code Description Data Jennifer rce(s) Supporting Document(s) ID Date Data Source [id number] 02/08/2021 10:15:00 AM EDT [facility]) Name Value Range Interpretation Code Description Data Jennifer rce(s) Supporting Document(s) total 25(oh) vitamin D 21.0 NG/mL 30.0-100.0 Below low normal T otal 25(Oh) Vitamin D [facility]) ID Date Data Source [id number] 02/08/2021 10:15:00 AM EDT [facility]) Name Value Range Interpretation Code Description Data Jennifer rce(s) Supporting Document(s) thyroid stimulating hormone 3.100 uIU/mL 0.358-3.740 Thyroid Stimulating Hormone [facility]) ID Date Data Source [id number] 02/08/2021 10:15:00 AM EDT [facility]) Name Value Range Interpretation Code Description Data Jennifer rce(s) Supporting Document(s) cholesterol level 264 mg/dL <200 Above high normal Cholesterol Level [facility]) triglycerides level 114 mg/dL <150 Triglycerides Le abhijit [place] ([facility]) Cholesterol in LDL [Mass/volume] in Serum or Plasma 187 mg/dL <100 Above high normal LDL Cholesterol [place] ([facility]) HDL cholesterol 54 mg/dL >40 HDL Cholesterol ATHE NA ([facility]) cholesterol risk ratio <5 Cholesterol R isk Ratio [place] ([facility]) non-HDL-C 210 mg/dL Non-hdl-c [place] ([facility]) ID Date Data Source [id number] 02/08/2021 10:15:00 AM EDT [place] ([facility]) Name Value Range Interpretation Code Description Data Jennifer rce(s) Supporting Document(s) glucose, fasting 85 mg/dL 70-100 Glucose, Fasting AT [facility]) blood urea nitrogen 13 mg/dL 7-18 Blood Urea Nitro gen [place] ([facility]) creatinine for GFR 0.61 mg/dL 0.55-1.30 Creatinine for GF R [place] ([facility]) sodium level 140 mEq/L 136-145 Sodium Level [place] ([facility]) potassium serum 4.0 mEq/L 3.5-5.1 Potassium Serum ATHE ([facility]) glomerular filtration rate > 60.0 >60 [place] r Filtration Rate [place] ([facility]) carbon dioxide level 29 mEq/L 21-32 Carbon Dioxide Level [place] ([facility]) chloride level 106 mEq/L 98-107 Chloride Level [place] ([facility]) calcium level 9.4 mg/dL 8.5-10.1 Calcium Level [place] ( [facility]) anion gap 5 mEq/L 8-16 Below low normal Anion Gap [place] ( [facility]) AST/SGOT 11 U/L 7-37 AST/SGOT [place] ([facility]) alkaline phosphatase 122 U/L 45-117 Above high normal Alkaline Phosphatase [place] ([facility]) ALT/SGPT 16 U/L 12-78 ALT/SGPT [place] ([facility]) bilirubin,total 0.5 mg/dL 0.2-1.0 Bilirubin,total ATHE NA ([facility]) total protein 7.2 gm/dL 6.4-8.2 Total Protein [place] ( [facility]) albumin 3.7 gm/dL 3.2-5.2 Albumin [place] ([facility]) albumin/globulin ratio 1.2-2.2 Below low normal Albumin /globulin Ratio [place] ([facility]) ID Date Data Source [id number] 02/08/2021 10:15:00 AM EDT [place] ([facility]) Name Value Range Interpretation Code Description Data Jennifer rce(s) Supporting Document(s) total 25(oh) vitamin D 21.0 NG/mL 30.0-100.0 Below low normal T otal 25(Oh) Vitamin D [place] ([facility]) ID Date Data Source [id number] 02/08/2021 10:15:00 AM EDT [place] ([facility]) Name Value Range Interpretation Code Description Data Jennifer rce(s) Supporting Document(s) thyroid stimulating hormone 3.100 uIU/mL 0.358-3.740 Thyroid Stimulating Hormone [place] ([facility]) ID Date Data Source [id number] 02/08/2021 10:15:00 AM EDT [place] ([facility]) Name Value Range Interpretation Code Description Data Jennifer rce(s) Supporting Document(s) HDL cholesterol 54 mg/dL >40 HDL Cholesterol ATHE NA ([facility]) cholesterol level 264 mg/dL <200 Above high normal Cholesterol Level [place] ([facility]) triglycerides level 114 mg/dL <150 Triglycerides Le abhijit [place] ([facility]) cholesterol risk ratio <5 Cholesterol R isk Ratio [place] ([facility]) Cholesterol in LDL [Mass/volume] in Serum or Plasma 187 mg/dL <100 Above high normal LDL Cholesterol [place] ([facility]) non-HDL-C 210 mg/dL Non-hdl-c [place] ([facility]) ID Date Data Source [id number] 02/08/2021 10:15:00 AM EDT [place] ([facility]) Name Value Range Interpretation Code Description Data Jennifer rce(s) Supporting Document(s) glucose, fasting 85 mg/dL 70-100 Glucose, Fasting AT [place] ([facility]) glomerular filtration rate > 60.0 >60 [place] r Filtration Rate [place] ([facility]) creatinine for GFR 0.61 mg/dL 0.55-1.30 Creatinine for GF R [place] ([facility]) blood urea nitrogen 13 mg/dL 7-18 Blood Urea Nitro gen [place] ([facility]) sodium level 140 mEq/L 136-145 Sodium Level [place] ([facility]) chloride level 106 mEq/L 98-107 Chloride Level [place] ([facility]) carbon dioxide level 29 mEq/L 21-32 Carbon Dioxide Level [place] ([facility]) potassium serum 4.0 mEq/L 3.5-5.1 Potassium Serum [place] NA ([facility]) anion gap 5 mEq/L 8-16 Below low normal Anion Gap [place] ( [facility]) AST/SGOT 11 U/L 7-37 AST/SGOT [place] ([facility]) calcium level 9.4 mg/dL 8.5-10.1 Calcium Level [place] ( [facility]) ALT/SGPT 16 U/L 12-78 ALT/SGPT [place] ([facility]) total protein 7.2 gm/dL 6.4-8.2 Total Protein [place] ( [facility]) alkaline phosphatase 122 U/L 45-117 Above high normal Alkaline Phosphatase [place] ([facility]) bilirubin,total 0.5 mg/dL 0.2-1.0 Bilirubin,total ATHE NA ([facility]) albumin/globulin ratio 1.2-2.2 Below low normal Albumin /globulin Ratio [place] ([facility]) albumin 3.7 gm/dL 3.2-5.2 Albumin [place] ([facility]) ID Date Data Source [id number] 02/08/2021 10:15:00 AM EDT [place] ([facility]) Name Value Range Interpretation Code Description Data Jennifer rce(s) Supporting Document(s) total 25(oh) vitamin D 21.0 NG/mL 30.0-100.0 Below low normal T otal 25(Oh) Vitamin D [place] ([facility]) ID Date Data Source [id number] 02/08/2021 10:15:00 AM EDT [place] ([facility]) Name Value Range Interpretation Code Description Data Jennifer rce(s) Supporting Document(s) thyroid stimulating hormone 3.100 uIU/mL 0.358-3.740 Thyroid Stimulating Hormone [place] ([facility]) ID Date Data Source [id number] 02/08/2021 10:15:00 AM EDT [facility]) Name Value Range Interpretation Code Description Data Jennifer rce(s) Supporting Document(s) cholesterol level 264 mg/dL <200 Above high normal Cholesterol Level [place] ([facility]) triglycerides level 114 mg/dL <150 Triglycerides Le abhijit [place] ([facility]) HDL cholesterol 54 mg/dL >40 HDL Cholesterol AT[place] NA ([facility]) Cholesterol in LDL [Mass/volume] in Serum or Plasma 187 mg/dL <100 Above high normal LDL Cholesterol [place] ([facility]) cholesterol risk ratio <5 Cholesterol R isk Ratio [place] ([facility]) non-HDL-C 210 mg/dL Non-hdl-c [place] ([facility]) ID Date Data Source [id number] 02/08/2021 10:15:00 [facility] Name Value Range Interpretation Code Description Data Jennifer rce(s) Supporting Document(s) blood urea nitrogen 13 mg/dL 7-18 Blood Urea Nitro gen [place] ([facility]) glucose, fasting 85 mg/dL 70-100 Glucose, Fasting AT [place] ([facility]) potassium serum 4.0 mEq/L 3.5-5.1 Potassium Serum [place] NA ([facility]) sodium level 140 mEq/L 136-145 Sodium Level [place] ([facility]) glomerular filtration rate > 60.0 >60 [place] r Filtration Rate [place] ([facility]) creatinine for GFR 0.61 mg/dL 0.55-1.30 Creatinine for GF R [place] ([facility]) calcium level 9.4 mg/dL 8.5-10.1 Calcium Level [place] ( [facility]) anion gap 5 mEq/L 8-16 Below low normal Anion Gap [place] ( [facility]) AST/SGOT 11 U/L 7-37 AST/SGOT [place] ([facility]) carbon dioxide level 29 mEq/L 21-32 Carbon Dioxide Level [place] ([facility]) chloride level 106 mEq/L 98-107 Chloride Level [place] ([facility]) total protein 7.2 gm/dL 6.4-8.2 Total Protein [place] ( [facility]) alkaline phosphatase 122 U/L 45-117 Above high normal Alkaline Phosphatase [place] ([facility]) bilirubin,total 0.5 mg/dL 0.2-1.0 Bilirubin,total [facility] ([facility]) ALT/SGPT 16 U/L 12-78 ALT/SGPT [place] ([facility]) albumin 3.7 gm/dL 3.2-5.2 Albumin [place] ([facility]) albumin/globulin ratio 1.2-2.2 Below low normal Albumin /globulin Ratio [place] ([facility]) ID Date Data Source [id number] 02/08/2021 10:15:00 AM EDT [place] ([facility]) Name Value Range Interpretation Code Description Data Jennifer rce(s) Supporting Document(s) total 25(oh) vitamin D 21.0 NG/mL 30.0-100.0 Below low normal T otal 25(Oh) Vitamin D [place] ([facility]) ID Date Data Source [id number] 02/08/2021 10:15:00 AM EDT [place] ([facility]) Name Value Range Interpretation Code Description Data Jennifer rce(s) Supporting Document(s) thyroid stimulating hormone 3.100 uIU/mL 0.358-3.740 Thyroid Stimulating Hormone [place] ([facility]) ID Date Data Source [id number] 02/08/2021 10:15:00 AM EDT [place] ([facility]) Name Value Range Interpretation Code Description Data Jennifer rce(s) Supporting Document(s) cholesterol level 264 mg/dL <200 Above high normal Cholesterol Level [place] ([facility]) triglycerides level 114 mg/dL <150 Triglycerides Le abhijit [place] ([facility]) cholesterol risk ratio <5 Cholesterol R isk Ratio [place] ([facility]) non-HDL-C 210 mg/dL Non-hdl-c [place] ([facility]) HDL cholesterol 54 mg/dL >40 HDL Cholesterol [place] NA ([facility]) Cholesterol in LDL [Mass/volume] in Serum or Plasma 187 mg/dL <100 Above high normal LDL Cholesterol [facility] ([facility]) ID Date Data Source [id number] 02/08/2021 10:15:00 [facility] Name Value Range Interpretation Code Description Data Jennifer rce(s) Supporting Document(s) glucose, fasting 85 mg/dL 70-100 Glucose, Fasting AT [facility]) blood urea nitrogen 13 mg/dL 7-18 Blood Urea Nitro gen [place] ([facility]) glomerular filtration rate > 60.0 >60 [place] r Filtration Rate [place] ([facility]) creatinine for GFR 0.61 mg/dL 0.55-1.30 Creatinine for GF R [place] ([facility]) sodium level 140 mEq/L 136-145 Sodium Level [place] (No [facility]) chloride level 106 mEq/L 98-107 Chloride Level [place] ([facility]) potassium serum 4.0 mEq/L 3.5-5.1 Potassium Serum [place] NA ([facility]) carbon dioxide level 29 mEq/L 21-32 Carbon Dioxide Level [place] ([facility]) anion gap 5 mEq/L 8-16 Below low normal Anion Gap [place] ( [facility]) calcium level 9.4 mg/dL 8.5-10.1 Calcium Level [place] ( [facility]) AST/SGOT 11 U/L 7-37 AST/SGOT [place] ([facility]) bilirubin,total 0.5 mg/dL 0.2-1.0 Bilirubin,total ATHE NA ([facility]) ALT/SGPT 16 U/L 12-78 ALT/SGPT [place] ([facility]) alkaline phosphatase 122 U/L 45-117 Above high normal Alkaline Phosphatase [place] ([facility]) albumin/globulin ratio 1.2-2.2 Below low normal Albumin /globulin Ratio [place] ([facility]) total protein 7.2 gm/dL 6.4-8.2 Total Protein [place] ( [facility]) albumin 3.7 gm/dL 3.2-5.2 Albumin [place] ([facility]) ID Date Data Source [id number] 02/08/2021 10:15:00 AM EDT [place] ([facility]) Name Value Range Interpretation Code Description Data Jennifer rce(s) Supporting Document(s) total 25(oh) vitamin D 21.0 NG/mL 30.0-100.0 Below low normal T otal 25(Oh) Vitamin D MAR[facility] ([facility]) ID Date Data Source [id number] 02/08/2021 10:15:00 AM EDT [facility] ([facility]) Name Value Range Interpretation Code Description Data Jennifer rce(s) Supporting Document(s) thyroid stimulating hormone 3.100 uIU/mL 0.358-3.740 Thyroid Stimulating Hormone [facility] ([facility]) ID Date Data Source [id number] 02/08/2021 10:15:00 AM EDT [facility] ([facility]) Name Value Range Interpretation Code Description Data Jennifer rce(s) Supporting Document(s) triglycerides level 114 mg/dL <150 Triglycerides Le abhijit [facility] ([facility]) cholesterol level 264 mg/dL <200 Above high normal Cholesterol Level [facility] ([facility]) Cholesterol in LDL [Mass/volume] in Serum or Plasma 187 mg/dL <100 Above high normal LDL Cholesterol [facility] ([facility]) HDL cholesterol 54 mg/dL >40 HDL Cholesterol ATHE ([facility]) non-HDL-C 210 mg/dL Non-hdl-c [facility] ([facility]) cholesterol risk ratio <5 Cholesterol R isk Ratio [facility] ([facility]) ID Date Data Source [id number] 02/08/2021 10:15:00 AM EDT [facility] ([facility]) Name Value Range Interpretation Code Description Data Jennifer rce(s) Supporting Document(s) glomerular filtration rate > 60.0 >60 Glomerula r Filtration Rate [facility] ([facility]) creatinine for GFR 0.61 mg/dL 0.55-1.30 Creatinine for GF R [facility] ([facility]) blood urea nitrogen 13 mg/dL 7-18 Blood Urea Nitro gen [facility] ([facility]) glucose, fasting 85 mg/dL 70-100 Glucose, Fasting AT [place] ([facility]) chloride level 106 mEq/L 98-107 Chloride Level [facility] ([facility]) potassium serum 4.0 mEq/L 3.5-5.1 Potassium Serum ATHE NA ([facility]) carbon dioxide level 29 mEq/L 21-32 Carbon Dioxide Level [facility] ([facility]) sodium level 140 mEq/L 136-145 Sodium Level MAR[facility]E (No [facility]) AST/SGOT 11 U/L 7-37 AST/SGOT [facility] ([facility]) calcium level 9.4 mg/dL 8.5-10.1 Calcium Level MAR[facility]E ( [facility]) ALT/SGPT 16 U/L 12-78 ALT/SGPT [facility] ([facility]) anion gap 5 mEq/L 8-16 Below low normal Anion Gap [facility] ( [facility]) total protein 7.2 gm/dL 6.4-8.2 Total Protein [facility] ( [facility]) bilirubin,total 0.5 mg/dL 0.2-1.0 Bilirubin,total ATHE NA ([facility]) albumin 3.7 gm/dL 3.2-5.2 Albumin [facility] ([facility]) alkaline phosphatase 122 U/L 45-117 Above high normal Alkaline Phosphatase [facility] ([facility]) albumin/globulin ratio 1.2-2.2 Below low normal Albumin /globulin Ratio [facility] ([facility]) ID Date Data Source [id number] 12/23/2020 06:31:00 PM EST [facility]) Name Value Range Interpretation Code Description Data Jennifer rce(s) Supporting Document(s) sars covid-19 amplification negative negative Sars Cov id-19 Amplification [facility]) ID Date Data Source [id number] 12/23/2020 06:31:00 PM EST [facility]) Name Value Range Interpretation Code Description Data Jennifer rce(s) Supporting Document(s) sars covid-19 amplification negative negative [facility] Date Data Source [id number] 12/23/2020 06:31:00 PM EST [facility]) Name Value Range Interpretation Code Description Data Jennifer rce(s) Supporting Document(s) sars covid-19 amplification negative negative Sars Cov id-19 Amplification [facility]) ID Date Data Source [id number] 12/23/2020 06:31:00 PM EST [facility]) Name Value Range Interpretation Code Description Data Jennifer rce(s) Supporting Document(s) sars covid-19 amplification negative negative Sars Cov id-19 Amplification [place] ([facility]) ID Date Data Source [id number] 12/23/2020 06:31:00 PM EST [facility] ([facility]) Name Value Range Interpretation Code Description Data Jennifer rce(s) Supporting Document(s) sars covid-19 amplification negative negative Sars Cov id-19 Amplification [place] ([facility]) ID Date Data Source [id number] 12/23/2020 06:31:00 PM EST [place] ([facility]) Name Value Range Interpretation Code Description Data Jennifer rce(s) Supporting Document(s) sars covid-19 amplification negative negative Sars Cov id-19 Amplification [facility]) ID Date Data Source [id number] 12/23/2020 06:31:00 PM EST [facility] Name Value Range Interpretation Code Description Data Jennifer rce(s) Supporting Document(s) SARS coronavirus 2 RNA [Presence] in Res piratory specimen by FILIPPO with probe detection NEGATIVE [facility] This lab was ordered by [facility] a nd reported by [facility]. ID Date Data Source [id number] 12/23/2020 05:13:00 PM EST [facility]) Name Value Range Interpretation Code Description Data Jennifer rce(s) Supporting Document(s) bill covid antigen negative negative Bill Covid Anti gen [place] ([facility]) ID Date Data Source [id number] 12/23/2020 05:13:00 PM EST [place] ([facility]) Name Value Range Interpretation Code Description Data Jennifer rce(s) Supporting Document(s) bill covid antigen negative negative Bill Covid Anti gen [place] ([facility]) ID Date Data Source [id number] 12/23/2020 05:13:00 PM EST [facility] ([facility]) Name Value Range Interpretation Code Description Data Jennifer rce(s) Supporting Document(s) bill covid antigen negative negative Bill Covid Anti gen [facility] ([facility]) ID Date Data Source [id number] 12/23/2020 05:13:00 PM EST [facility] ([facility]) Name Value Range Interpretation Code Description Data Jennifer rce(s) Supporting Document(s) bill covid antigen negative negative Bill Covid Anti gen [facility] ([facility]) ID Date Data Source [id number] 12/23/2020 05:13:00 PM EST [facility] ([facility]) Name Value Range Interpretation Code Description Data Jennifer rce(s) Supporting Document(s) bill covid antigen negative negative Bill Covid Anti gen [facility] ([facility]) ID Date Data Source [id number] 12/23/2020 05:13:00 PM EST [facility] ([facility]) Name Value Range Interpretation Code Description Data Jennifer rce(s) Supporting Document(s) bill covid antigen negative negative Bill Covid Anti gen [facility] ([facility]) ID Date Data Source [id number] 12/23/2020 05:13:00 PM EST [facility] Name Value Range Interpretation Code Description Data Jennifer rce(s) Supporting Document(s) SARS COVID ANTIGEN NEGATIVE [facility] This lab was ordered by [facility]ma nd reported by [facility]. ID Date Data Source [id number] 10/31/2020 11:02:00 AM EST [facility] Name Value Range Interpretation Code Description Data Jennifer rce(s) Supporting Document(s) Laboratory test finding (navigational concept) Laboratory test result [facility] ([facility], ) ID Date Data Source [id number] 08/15/2020 05:48:12 PM EDT [facility] Measurements & CalculationsHeight: 62 inches (5 [...] during this visit, including review of any xbet-suo-sqsisoh medications, herbal therapies, and/or supplements.Allergy ReviewAllergy List [...] is? PoorAssessment & Plan Problems:Added: Nausea (ICD-787.02) (DYI79-A84.0) Assessment: Instructions: script sent too pharmacy for you today.Assessed:Person consulting for explanation of examinat ion or test findings (ICD-V65.8) (CKR68-M67.2) Assessment: Instructions: We have reviewed your lab results with you todayHypertension (ICD-401.9) (ICD10- I10) Assessment: Instructions: Your blood pressure is at goal today. Please continue medications as prescribed. Please continue lifestyle changes to include healthy diet and physical activities. Please try to avoid added sodium in your diet.HYPERLIPIDEMIA (ICD-272.4) (QRN24-E67.5) Assessment: cholesterol level significantly elevated. Pt states [...] MG ORAL TABLET DISINTEGRATINGZONISAMIDE 100 MGVITAMIN D3 87895 UNIT ORAL CAPSULETYLENOL EXTRA STRENGTH 500 MG ORAL TABLETNYSTATIN 432231 UNIT/GM EXTERNAL OINTMENTIMITREX 25 MG ORAL TABLETTRAZODONE [...] Method: ElectronicAllergies:NSAIDS (Critical)ASPIRIN (Moderate)IBUPROFEN (Moderate)Orders:COMP METABOLIC PANEL [CPT-27550] CBC W/DIFF [CPT-76136] LIPID PANEL [CPT-17519] HgBA1c [CPT-95631] Vitamin D 250H Unspecified [CPT-34959] Adult - Ofc Vst, EST, Level IV [CPT-37105] Follow-Up Return to clinic: 3 months for follow up Clinical Visit Summary CompletedMedications:ONDANSETRON 4 MG ORAL TABLET DISINTEGRATING (ONDANSETRON) one tablet by mouth twice daily as needed #15[Tablet] x 2 Route:ORAL Entered and Authorized by: Diana PICKENS Method used: Electronically to [facility] (retail) [address] [place] [address] Ph: Note to Pharmacy: Route: ORAL; Indications: NAUSEA RxID: [id number] 40 MG ORAL CAPSULE DELAYED RELEASE (OMEPRAZOLE) 1 pill po daily #30[Capsule] x 5 Entered and Authorized by: Diana PICKENS Method used: Electronically to [facility] (retail) [address] [place] [address] Fax: RxID: [id number] SULFATE 325 (65 FE) MG ORAL TABLET DELAYED RELEASE (FERROUS SULFATE) 1 tab by mouth every day #30[Tablet] x 5 Route:ORAL Entered and Authorized by: Diana PICKENS Method used: Electronically to [facility] (retail) [address] [place] [address] Note to Pharmacy: Route: ORAL; RxID: [id number] TARTRATE 25 MG ORAL TABLET (METOPROLOL TARTRATE) 1 tab by mouth twice per day #60[Tablet] x 5 Route:ORAL Entered and Authorized by: Diana PICKENS Method used: Electronically to [facility] (retail) [address] [place] [address] Fax: Note to Pharmacy: Route: ORAL; RxID: [id number] CALCIUM 40 MG ORAL TABLET (ATORVASTATIN CALCIUM) 1 tab by mouth every night at bedtime #30[Tablet] x 5 Route:ORAL Entered and Authorized by: Diana PICKENS Method used: Electronically to [facility] ([facility]) [address] [address] [place] [address] Note to Pharmacy: Route: ORAL; RxID: [id number] signed by Diana PICKENS on 08/26/2020 at 11:25 AM Name Value Range Interpretation Code Description Data Jennifer rce(s) Supporting Document(s) Procedure Social History Code Duration Value Status Description Data Source(s ) Smoking 09/22/2021 12:00:00 AM EDT Unknown if ever smoked comp leted Unknown if ever smoked [facility] ([facility]) Smoking 08/29/2021 12:00:00 AM EDT Non Smoker completed Non Smoke r [facility] ([facility], ) Smoking 07/13/2021 12:00:00 AM EDT Unknown if ever smoked comp leted Unknown if ever smoked [facility] ([facility]) Alcohol intake 06/16/2021 12:00:00 AM EDT Current drinker of al cohol (finding) completed Current drinker of alcohol (finding) [facility] Smoking 05/19/2021 12:00:00 AM EDT Unknown if ever smoked comp leted Unknown if ever smoked [facility] ([facility]) Smoking 05/05/2021 12:00:00 AM EDT Unknown if ever smoked comp leted Unknown if ever smoked [facility] ([facility]) Smoking 05/02/2021 12:00:00 AM EDT Unknown if ever smoked comp leted Unknown if ever smoked [facility] ([facility]) Smoking 04/17/2021 12:00:00 AM EDT Unknown if ever smoked comp leted Unknown if ever smoked [facility] ([facility]) Alcohol intake 03/17/2021 12:00:00 AM EDT Current drinker of al cohol (finding) completed Current drinker of alcohol (finding) [facility] Smoking 03/16/2021 12:00:00 AM EDT Unknown if ever smoked comp leted Unknown if ever smoked [facility] ([facility]) Smoking 03/14/2021 12:00:00 AM EDT Unknown if ever smoked comp leted Unknown if ever smoked [facility] ([facility]) Smoking 02/24/2021 12:00:00 AM EDT Unknown if ever smoked comp leted Unknown if ever smoked [facility] ([facility]) Smoking 01/30/2021 12:00:00 AM EST Unknown if ever smoked comp leted Unknown if ever smoked [facility] ([facility]) Smoking 12/22/2020 12:00:00 AM EST Unknown if ever smoked comp leted Unknown if ever smoked [facility] ([facility]) Alcohol intake 12/07/2020 12:00:00 AM EST Yes completed [facility] Smoking 12/07/2020 12:00:00 AM EST Never smoker completed Never s moker [facility] Smoking 12/05/2020 12:00:00 AM EST Unknown if ever smoked comp leted Unknown if ever smoked [facility] ([facility]) Smoking 11/21/2020 12:00:00 AM EST Unknown if ever smoked comp leted Unknown if ever smoked [facility] ([facility]) Smoking 11/01/2020 12:00:00 AM EST Unknown if ever smoked comp leted Unknown if ever smoked [facility] ([facility]) Smoking 10/05/2020 12:00:00 AM EST Unknown if ever smoked comp leted Unknown if ever smoked [facility] ([facility]) Smoking 09/20/2020 12:00:00 AM EDT Unknown if ever smoked comp leted Unknown if ever smoked [facility] ([facility]) Smoking 08/29/2020 12:00:00 AM EDT Unknown if ever smoked comp leted Unknown if ever smoked [facility] ([facility]) Smoking 08/26/2020 12:00:00 AM EDT Unknown if ever smoked comp leted Unknown if ever smoked [facility] ([facility]) Vital Signs ID Date Data Source UNK Name Value Range Interpretation Code Description Data Source(s) Systolic blood pressure 120 mm[Hg] 120 mm[Hg[facility] Diastolic blood pressure 62 mm[Hg] 62 mm[Hg] [facility] Heart rate 45 /min 45 /min [facility] ([facility]) Oxygen saturation in Arterial blood by Pulse oximetry 95 % 95 % [facility] ([facility]) Body height 62 [in_i] 62 [in_i] [facility] ([facility]) 5'2" Body weight 215.00 [lb_av] 215.00 [lb_av] MEDEN T ([facility]) Body mass index (BMI) [Ratio] 39.3 kg/m2 39.3 k g/m2 [facility] ([facility]) Ider body weight 110 [lb_av] 110 [[facility]_av] [facility] Body weight 97.524 kg 97.524 kg [facility] ([facility]) Body surface area Derived from formula 1.97 m2 1.97 m2 [facility] ([facility]) Systolic blood pressure 120 mm[Hg] 120 mm[Hg] M EDENT ([facility]) Diastolic blood pressure 70 mm[Hg] 70 mm[Hg] [facility] Heart rate 56 /min 56 /min [facility] ([facility]) Respiratory rate 16 /min 16 /min [facility] ( [facility]) Body weight 215.00 [lb_av] 215.00 [lb_av] MEDEN T ([facility]) Body weight 97.524 kg 97.524 kg [facility] ([facility]) Body surface area Derived from formula 1.97 m2 1.97 m2 [facility] ([facility]) Body mass index (BMI) [Ratio] 39.3 kg/m2 39.3 k g/m2 [facility] ([facility]) Ider body weight 110 [lb_av] 110 [lb_av] MEDEN T ([facility]) Systolic blood pressure 122 mm[Hg] 122 mm[Hg] M EDENT ([facility]) Diastolic blood pressure 82 mm[Hg] 82 mm[Hg] [facility] ([facility]) Body height 62 [in_i] 62 [in_i] [facility] ([facility]) 5'2" Body mass index (BMI) [Ratio] 39.9 kg/m2 39.9 k g/m2 [facility] ([facility]) Body weight 98.885 kg 98.885 kg [facility] ([facility]) Systolic blood pressure 120 mm[Hg] 120 mm[Hg] [facility] Diastolic blood pressure 62 mm[Hg] 62 mm[Hg] [facility] ([facility]) Heart rate 53 /min 53 /min [facility] ([facility]) Oxygen saturation in Arterial blood by Pulse oximetry 98 % 98 % [facility] ([facility]) Body height 62 [in_i] 62 [in_i] [facility] ([facility]) 5'2" Body weight 218.00 [lb_av] 218.00 [lb_av] MED[facility] T ([facility]) Ider body weight 110 [lb_av] 110 [lb_av] MED[facility] T ([facility]) Body surface area Derived from formula 1.98 m2 1.98 m2 [facility] ([facility]) Systolic blood pressure 124 mm[Hg] 124 mm[Hg] [facility] Diastolic blood pressure 70 mm[Hg] 70 mm[Hg] [facility] ([facility]) Heart rate 76 /min 76 /min [facility] ([facility]) Respiratory rate 16 /min 16 /min [facility] ( [facility]) Body surface area Derived from formula 2.00 m2 2.00 m2 [facility] Body weight 100.699 kg 100.699 [facility] Body mass index (BMI) [Ratio] 40.6 kg/m2 40.6 k g/m2 [facility] Body weight 222.00 [lb_av] 222.00 [lb_av] MED[facility] T ([facility]) Ider body weight 110 [lb_av] 110 [lb_av] [facility] T ([facility]) Body height 62 [in_i] 62 [in_i] [facility] ([facility]) 5'2" Diastolic blood pressure 82 mm[Hg] 82 mm[Hg] [facility] ([facility]) Systolic blood pressure 118 mm[Hg] 118 mm[Hg] M EDENT ([facility]) Body height 62 [in_i] 62 [in_i] [facility] ([facility]) 5'2" Body weight 222.00 [lb_av] 222.00 [lb_av] [facility] T ([facility]) Body mass index (BMI) [Ratio] 40.6 kg/m2 40.6 k g/m2 [facility] ([facility]) Ider body weight 110 [lb_av] 110 [lb_av] [facility] T ([facility]) Body weight 100.699 kg 100.699 [facility] Body surface area Derived from formula 2.00 m2 2.00 m2 [facility] ([facility]) Body weight 222.12 [lb_av] 222.12 [lb_av] [facility] T ([facility]) Body mass index (BMI) [Ratio] 40.6 kg/m2 40.6 k g/m2 [facility] Ider body weight 110 [lb_av] 110 [lb_av] MEDEN T ([facility], ) Diastolic blood pressure 70 mm[Hg] 70 mm[Hg] [facility] ([facility], ) Heart rate 66 /min 66 /min [facility] ([facility], ) Systolic blood pressure 122 mm[Hg] 122 mm[Hg] M EDENT ([facility], ) Oxygen saturation in Arterial blood by Pulse oximetry 96 % 96 % [facility] ) Body height 62 [in_i] 62 [in_i] [facility] 5'2" Body weight 100.756 kg 100.756 kg [facility] ([facility], ) Body surface area Derived from formula 2.00 m2 2.00 m2 [facility] ([facility], ) Body height 62 [in_i] 62 [in_i] [place] ([facility]) Systolic blood pressure 110 mm[Hg] 110 mm[Hg] [facility] Diastolic blood pressure 70 mm[Hg] 70 mm[Hg] [facility] Heart rate 62 /min 62 /min [facility] Respiratory rate 19 /min 19 /min [facility] Body height 157.5 cm 157.5 cm [facility] Body weight 102.967 kg 102.967 kg [facility] Body mass index (BMI) [Ratio] 41.52 kg/m2 41.52 kg/m2 [facility] Oxygen saturation in Arterial blood by Pulse oximetry 96 % 96 % [facility] Body height 62 [in_i] 62 [in_i] [place] ([facility]) Body height 62 [in_i] 62 [in_i] [facility]E ([facility]) Ider body weight 110 [lb_av] 110 [lb_av] MEDEN T ([facility], ) Body height 62 [in_i] 62 [in_i] [facility] ([facility], ) 5'2" Oxygen saturation in Arterial blood by Pulse oximetry 97 % 97 % [facility], ) Systolic blood pressure 130 mm[Hg] 130 mm[Hg] M EDENT ([facility]) Heart rate 57 /min 57 /min [facility] ([facility]) Body weight 227.00 [lb_av] 227.00 [lb_av] [facility] T ([facility]) Body mass index (BMI) [Ratio] 41.5 kg/m2 41.5 k g/m2 [facility] ([facility]) Diastolic blood pressure 72 mm[Hg] 72 mm[Hg] [facility] ([facility]) Body weight 102.967 kg 102.967 kg [facility] ([facility]) Body surface area Derived from formula 2.02 m2 2.02 m2 [facility] ([facility]) Oxygen saturation in Arterial blood by Pulse oximetry 97 % 97 % [facility] ([facility]) Body height 62 [in_i] 62 [in_i] [facility] ([facility]) 5'2" Body weight 227.00 [lb_av] 227.00 [lb_av] [facility] T ([facility]) Body mass index (BMI) [Ratio] 41.5 kg/m2 41.5 k g/m2 [facility] ([facility]) Ider body weight 110 [lb_av] 110 [lb_av] [facility] Body weight 102.967 kg 102.967 kg [facility] ([facility]) Body surface area Derived from formula 2.02 m2 2.02 m2 [facility] ([facility]) Systolic blood pressure 118 mm[Hg] 118 mm[Hg] [facility] Diastolic blood pressure 82 mm[Hg] 82 mm[Hg] [facility] Network Heart rate 66 /min 66 /min [facility] Body height 157.5 cm 157.5 cm [facility] Body weight 109.226 kg 109.226 kg [facility] Body mass index (BMI) [Ratio] 44.04 kg/m2 44.04 kg/m2 [facility] Oxygen saturation in Arterial blood by Pulse oximetry 96 % 96 % [facility] Body height 0.00 in Normal (applies to non-numeric resu lts) 0.00 in [facility] ([facility]) Body weight Measured 0.00 lbs Normal (applies to n on-numeric results) 0.00 lbs [facility] ([facility]) Body mass index (BMI) [Ratio] 0.00 kg/m2 No rmal (applies to non-numeric results) 0.00 kg/m2 [facility] ([facility]) Systolic blood pressure 0 mm[Hg] Normal (applies t o non-numeric results) 0 mm[Hg] [facility] ([facility]) Diastolic blood pressure 0 mm[Hg] Normal (applies to non-numeric results) 0 mm[Hg] [facility] ([facility]) Diastolic blood pressure 83 mm[Hg] 83 mm[Hg] DOWNEY ([facility]) Body height 62 [in_i] 62 [in_i] MARILEE ([facility]) Body mass index (BMI) [Ratio] 43.7 kg/m2 43.7 k g/m2 [facility] ([facility]) Systolic blood pressure 124 mm[Hg] 124 mm[Hg] A [facility] ([facility]) Body weight 3824 [oz_av] 3824 [oz_av] MARILEE ([facility]) Diastolic blood pressure 83 mm[Hg] 83 mm[Hg] MARILEE ([facility]) Systolic blood pressure 124 mm[Hg] 124 mm[Hg] A [facility] ([facility]) Body weight 3824 [oz_av] 3824 [oz_av] MAR[facility]E ([facility]) Body height 62 [in_i] 62 [in_i] MAR[facility]E ([facility]) Body mass index (BMI) [Ratio] 43.7 kg/m2 43.7 k g/m2 [facility] ([facility]) Body mass index (BMI) [Ratio] 43.7 kg/m2 43.7 k g/m2 MAR[facility] ([facility]) Diastolic blood pressure 83 mm[Hg] 83 mm[Hg] MAR[facility]E ([facility]) Body height 62 [in_i] 62 [in_i] MAR[facility]E ([facility]) Systolic blood pressure 124 mm[Hg] 124 mm[Hg] A THENA ([facility]) Body weight 3824 [oz_av] 3824 [oz_av] MAR[facility]E ([facility]) Diastolic blood pressure 83 mm[Hg] 83 mm[Hg] MARILEE ([facility]) Body height 62 [in_i] 62 [in_i] MAR[facility]E ([facility]) Body mass index (BMI) [Ratio] 43.7 kg/m2 43.7 k g/m2 MAR[facility] ([facility]) Systolic blood pressure 124 mm[Hg] 124 mm[Hg] A THENA ([facility]) Body weight 3824 [oz_av] 3824 [oz_av] MAR[facility]E ([facility]) Systolic blood pressure 145 mm[Hg] 145 mm[Hg] [place] STEWART ([facility], ) Diastolic blood pressure 77 mm[Hg] 77 mm[Hg] MEDENT ([facility], ) Body height 62 [in_i] 62 [in_i] MEDENT ([facility], ) 5'2" Body weight 232.00 [lb_av] 232.00 [lb_av] MEDEN T ([facility], ) Body mass index (BMI) [Ratio] 42.4 kg/m2 42.4 k g/m2 MEDENT ([facility], ) Ider body weight 110 [lb_av] 110 [lb_av] MEDEN T ([facility], ) Body weight 105.235 kg 105.235 kg MEDENT ([facility], ) Body surface area Derived from formula 2.04 m2 2.04 m2 MEDCINDY ([facility], ) Systolic blood pressure 124 mm[Hg] 124 mm[Hg] [facility] Diastolic blood pressure 80 mm[Hg] 80 mm[Hg] [facility] Heart rate 60 /min 60 /min [facility] Body height 157.5 cm 157.5 cm [facility] Body weight 101.606 kg 101.606 kg [facility] Body mass index (BMI) [Ratio] 40.97 kg/m2 40.97 kg/m2 [facility] Oxygen saturation in Arterial blood by Pulse oximetry 97 % 97 % [facility] Body height 0.00 in Normal (applies to non-numeric resu lts) 0.00 in [facility] ([facility]) Body weight Measured 0.00 lbs Normal (applies to n on-numeric results) 0.00 lbs [facility] ([facility]) Body mass index (BMI) [Ratio] 0.00 kg/m2 No rmal (applies to non-numeric results) 0.00 kg/m2 [facility] Systolic blood pressure 0 mm[Hg] Normal (applies t o non-numeric results) 0 mm[Hg] [facility] ([facility]) Diastolic blood pressure 0 mm[Hg] Normal (applies to non-numeric results) 0 mm[Hg] [facility] ([facility]) Body mass index (BMI) [Ratio] 41.0 kg/m2 41.0 k g/m2 MED[facility] ([facility], ) Ider body weight 110 [lb_av] 110 [lb_av] MEDEN T ([facility]) Body weight 101.606 kg 101.606 [facility], [facility] Body height 62 [in_i] 62 [in_i] [facility] 5'2" Body weight 224.00 [lb_av] 224.00 [lb_av] MEDEN T ([facility]) Body surface area Derived from formula 2.01 m2 2.01 m2 [facility] ([facility]) Body surface area Derived from formula 2.01 m2 2.01 m2 [facility] ([facility], ) Body height 62 [in_i] 62 [in_i] MEDENT ([facility], ) 5'2" Body weight 224.00 [lb_av] 224.00 [lb_av] MEDEN T ([facility], ) Body mass index (BMI) [Ratio] 41.0 kg/m2 41.0 k g/m2 MED[facility] ([facility], ) Ider body weight 110 [lb_av] 110 [lb_av] MEDEN T ([facility]) Body weight 101.606 kg 101.606 kg MEDENT ([facility], ) Diastolic blood pressure 0 mm[Hg] Normal (applies to non-numeric results) 0 mm[Hg] [facility] ([facility]) Body height 0.00 in Normal (applies to non-numeric resu lts) 0.00 in [facility] ([facility]) Body weight Measured 0.00 lbs Normal (applies to n on-numeric results) 0.00 lbs [facility] ([facility]) Body mass index (BMI) [Ratio] 0.00 kg/m2 No rmal (applies to non-numeric results) 0.00 kg/m2 [facility] ([facility]) Systolic blood pressure 0 mm[Hg] Normal (applies t o non-numeric results) 0 mm[Hg] [facility] ([facility]) Diastolic blood pressure 86 mm[Hg] 86 mm[Hg] DOW[place] ([facility]) Body height 62 [in_i] 62 [in_i] [facility] ([facility]) Body mass index (BMI) [Ratio] 42.49 kg/m2 42.49 kg/m2 MARILEE ([facility]) Systolic blood pressure 130 mm[Hg] 130 mm[Hg] A [facility] ([facility]) Body weight 3704 [oz_av] 3704 [oz_av] MARILEE ([facility]) Diastolic blood pressure 86 mm[Hg] 86 mm[Hg] MARILEE ([facility]) Body height 62 [in_i] 62 [in_i] MAR[facility]E ([facility]) Body mass index (BMI) [Ratio] 42.49 kg/m2 42.49 kg/m2 [facility] ([facility]) Systolic blood pressure 130 mm[Hg] 130 mm[Hg] A [facility] ([facility]) Body weight 3704 [oz_av] 3704 [oz_av] MAR[facility]E ([facility]) Diastolic blood pressure 86 mm[Hg] 86 mm[Hg] MARILEE ([facility]) Body height 62 [in_i] 62 [in_i] MAR[facility]E ([facility]) Body mass index (BMI) [Ratio] 42.49 kg/m2 42.49 kg/m2 [facility] ([facility]) Systolic blood pressure 130 mm[Hg] 130 mm[Hg] [facility] Body weight 3704 [oz_av] 3704 [oz_av] MARILEE ([facility]) Diastolic blood pressure 86 mm[Hg] 86 mm[Hg] MARILEE ([facility]) Body height 62 [in_i] 62 [in_i] MAR[facility]E ([facility]) Body mass index (BMI) [Ratio] 42.49 kg/m2 42.49 kg/m2 [facility] ([facility]) Systolic blood pressure 130 mm[Hg] 130 mm[Hg] [facility]) Body weight 3704 [oz_av] 3704 [oz_av] MARILEE ([facility]) Diastolic blood pressure 86 mm[Hg] 86 mm[Hg] MARILEE ([facility]) Body height 62 [in_i] 62 [in_i] MARILEE ([facility]) Body mass index (BMI) [Ratio] 42.49 kg/m2 42.49 kg/m2 MAR[facility] ([facility]) Systolic blood pressure 130 mm[Hg] 130 mm[Hg] A THENA ([facility]) Body weight 3704 [oz_av] 3704 [oz_av] MARILEE ([facility]) Body height 62 [in_i] 62 [in_i] MARILEE ([facility]) Body mass index (BMI) [Ratio] 42.49 kg/m2 42.49 kg/m2 MAR[facility]E ([facility]) Systolic blood pressure 130 mm[Hg] 130 mm[Hg] [facility]) Body weight 3704 [oz_av] 3704 [oz_av] MARILEE ([facility]) Diastolic blood pressure 86 mm[Hg] 86 mm[Hg] MARILEE ([facility]) Heart rate 68 /min 68 /min [facility] ([facility], ) Respiratory rate 16 /min 16 /min MED[facility] ( [facility], ) Systolic blood pressure 126 mm[Hg] 126 mm[Hg] M EDENT ([facility], ) Diastolic blood pressure 80 mm[Hg] 80 mm[Hg] [facility] ([facility], ) Patient Treatment Plan of Care Planned Activity Planned Date Details Description Data Source (s) ammonium lactate 120 MG/ML Topical Cream 05/15/2021 12:00:00 AM EDT [facility] Colchicine 0.6 MG Oral Tablet 03/17/2021 12:00:00 AM EDT [facility] Fluoxetine 40 MG Oral Capsule 03/16/2021 12:00:00 AM EDT [facility] Metoprolol Tartrate 25 MG Oral Tablet 12/07/2020 12:00:00 AM EST [facility] Prednisone 20 MG Oral Tablet 11/04/2020 12:00:00 AM EST [facility] Cyclobenzaprine hydrochloride 5 MG Oral Tablet 11/04/2020 12:00:00 AM [facility] zonisamide 100 MG Oral Capsule 10/19/2020 12:00:00 AM EST [facility] Ondansetron 4 MG Disintegrating Oral Tablet 08/16/2020 12:00:00 AM EDT [facility] ferrous sulfate 325 MG Delayed Release Oral Tablet 08/16/2020 12 :00:00 AM EDT [facility] zonisamide 50 MG Oral Capsule 07/26/2020 12:00:00 AM EDT [facility] zonisamide 25 MG Oral Capsule 06/21/2020 12:00:00 AM EDT [facility] zonisamide 50 MG Oral Capsule [facility] ([facility]) zonisamide 25 MG Oral Capsule [facility] ([facility]) Prednisone 20 MG Oral Tablet [facility] ([facility]) Prednisone 10 MG Oral Tablet [facility] ([facility]) Acetaminophen 325 MG / Hydrocodone Bitartrate 5 MG Oral Tablet [facility] ([facility]) Cyclobenzaprine hydrochloride 5 MG Oral Tablet [facility] ([facility]) Amoxicillin 500 MG Oral Capsule [facility] ([facility]) zonisamide 50 MG Oral Capsule [facility] ([facility]) zonisamide 25 MG Oral Capsule [facility] ([facility]) Prednisone 20 MG Oral Tablet [facility] ([facility]) Prednisone 10 MG Oral Tablet [facility] ([facility]) Acetaminophen 325 MG / Hydrocodone Bitartrate 5 MG Oral Tablet [facility] ([facility]) Cyclobenzaprine hydrochloride 5 MG Oral Tablet [facility] ([facility]) Amoxicillin 500 MG Oral Capsule [facility] ([facility]) Omeprazole 40 MG Delayed Release Oral Capsule [facility] zonisamide 50 MG Oral Capsule [facility] ([facility]) zonisamide 25 MG Oral Capsule [facility] ([facility]) Prednisone 20 MG Oral Tablet [facility] ([facility]) Prednisone 10 MG Oral Tablet [facility] ([facility]) Acetaminophen 325 MG / Hydrocodone Bitartrate 5 MG Oral Tablet [facility] ([facility]) Cyclobenzaprine hydrochloride 5 MG Oral Tablet [facility] ([facility]) Amoxicillin 500 MG Oral Capsule [facility] ([facility]) Loratadine 10 MG Oral Tablet [facility] Trazodone Hydrochloride 100 MG Oral Tablet [facility] Fluoxetine 20 MG Oral Capsule [facility] zonisamide 50 MG Oral Capsule [facility] ([facility]) zonisamide 25 MG Oral Capsule [facility] ([facility]) Prednisone 20 MG Oral Tablet [facility] ([facility]) Prednisone 10 MG Oral Tablet MAIRLEE ([facility]) Acetaminophen 325 MG / Hydrocodone Bitartrate 5 MG Oral Tablet [facility] ([facility]) Cyclobenzaprine hydrochloride 5 MG Oral Tablet [facility] ([facility]) Amoxicillin 500 MG Oral Capsule [facility] ([facility]) Metoprolol Tartrate 25 MG Oral Tablet [facility]
--- OUTSIDE RECORDS SUMMARY | 2021-10-01 22:54 | CCD ---
Author Author [facility] Organization [facility] Address Unknown Phone Unavailable Support Name Relationship Address Phone LADONNA PINA Next Of Kin [address] [address] JENNIFER [place] [address] Ladonnanany Pina Next Of Kin Unknown Unavailable YOVANIMELLY Next Of Kin [address] [place] [address] Ronald Pina III Next Of Kin [address] [place] [address] Yassine RICKETTSP, Diana Next Of Kin [address] [place] [address] Mary MORENO Jeannie Next Of Kin [address] [place], [place] [id number] Rubens RPA-C, Yamilex Next Of Kin [address] [place] [address] Felix Butt MD Next Of Kin [address] [place] [address] Nishant RPA-C, Callie Next Of Kin [address] [place] [address] YOVANI, ROSA MARIA Next Of Kin [address] [place] [address] MILES, JACINTA Next Of Kin [address] [place] [place] [address] DONNA LUTZ Next Of Kin [address] [place] [address] CATALINO LUTZ Next Of Kin [address] [place] [address] NO, CONTACT Next Of Kin Unknown RONALD PINA Next Of Kin [address] [facility] [address] [place] [address] JOANNE RONALD Next Of Kin [address] [facility] [address] [place] [address] GWENDOLYN [place] [address] Unavailable PAPGlen [place] [address] Unavailable [place] [address] Unavailable FISH, SEBASTIAN Next Of Kin [address] [place] [address] ABY ALBRIGHT Next Of Kin [address] [facility] [address] [place] [address] LUCINA CARVAJAL Next Of Kin [address] [place] [address] JESSY Next Of Kin [address] [place] [address] JOE LAWRENCE Next Of Kin [address] [place] [address] ARTSJUG Next Of Kin [address] [place] [address] STUDENT [facility] Next Of Kin Unknown Unavailab Karl Schaffer Next Of Kin [address] [place] [address] IVAN STORY Next Of Kin [facility] [address] [place] [address] TERRI ABRAHAM Next Of Kin [address] [place] [address] DISABLED Next Of Kin UN UN, UN UN Unavailable UE Next Of Kin Unknown Unavailable KATHLEEN ABEBE Next Of Kin [address] [place] [address] PAPITO CARVAJAL Next Of Kin [address] [place] [address] PAPITO CARVAJAL ECON [address] [place] [address] Unavailable Ronald Pina III ECON [address] [place] [address] [phone] [address] PINAARD [address] [address] [phone] Care Team Providers Care Neurophysiologist Name Role Phone Brea Butt MD Unavailable [...] Unavailable Unavailable Brea Btut MD Unavailable Unavailable Brea Butt MD Unavailable [...] Washington MD Unavailable Unavailable Kocan, J Pricilla POLYMERIZATION HELPER Unavailable Unavailable Kocan, J Pricilla POLYMERIZATION HELPER Unavailable Unavailable Kocan, J Pricilla POLYMERIZATION HELPER Unavailable Unavailable Kocan, J Pricilla POLYMERIZATION HELPER Unavailable Unavailable Kocan, J Pricilla POLYMERIZATION HELPER Unavailable Unavailable Kocan, J Pricilla POLYMERIZATION HELPER Unavailable Unavailable Kocan, J Pricilla POLYMERIZATION HELPER Unavailable Unavailable Kocan, J Pricilla POLYMERIZATION HELPER Unavailable Unavailable Kocan, J Pricilla POLYMERIZATION HELPER Unavailable Unavailable Kocan, J Pricilla POLYMERIZATION HELPER Unavailable Unavailable Kocan, J Pricilla POLYMERIZATION HELPER Unavailable Unavailable Kocan, J Pricilla POLYMERIZATION HELPER Unavailable Unavailable Kocan, J Pricilla POLYMERIZATION HELPER Unavailable Unavailable Diana Metzger INSURANCE ACCOUNT SPECIALIST INSURANCE ACCOUNT SPECIALIST Unavailable Unavailable Wade, R Ray FILTRATION OPERATOR Unavailable Unavailable Wade, R Ray FILTRATION OPERATOR Unavailable Unavailable Wade, R Ray FILTRATION OPERATOR Unavailable Unavailable Charlebois, A Kim RPA C [...] Puri, M Barratt PA Unavailable Unavailable Fernando uPri Unavailable Unavailable Fernando Puri Unavailable Unavailable Fernando Puri Unavailable Unavailable Fernando Puri Unavailable Unavailable Fernando Puri Unavailable Unavailable Fernando Puri Unavailable Unavailable HAWKINSCAMILA MD Unavailable Unavailable HAWKINSCAMILA [...] CAMILA MD Unavailable Unavailable Yassine, A Diana INSURANCE ACCOUNT SPECIALIST Unavailable Unavailable Yassine, A Diana INSURANCE ACCOUNT SPECIALIST Unavailable Unavailable Yassine, A Diana INSURANCE ACCOUNT SPECIALIST Unavailable Unavailable Yassine, A Diana INSURANCE ACCOUNT SPECIALIST Unavailable Unavailable Yassine, A Diana INSURANCE ACCOUNT SPECIALIST Unavailable Unavailable Yassine, A Diana INSURANCE ACCOUNT SPECIALIST Unavailable Unavailable Yassine, A Diana INSURANCE ACCOUNT SPECIALIST Unavailable Unavailable Yassine, A Diana INSURANCE ACCOUNT SPECIALIST Unavailable Unavailable Yassine, A Diana INSURANCE ACCOUNT SPECIALIST Unavailable Unavailable Yassine, A Diana INSURANCE ACCOUNT SPECIALIST Unavailable Unavailable Yassine, A Diana INSURANCE ACCOUNT SPECIALIST Unavailable Unavailable Yassine, A Diana INSURANCE ACCOUNT SPECIALIST Unavailable Unavailable Yassine, A Diana INSURANCE ACCOUNT SPECIALIST Unavailable Unavailable Yassine, A Diana INSURANCE ACCOUNT SPECIALIST Unavailable Unavailable Yassine, A Diana INSURANCE ACCOUNT SPECIALIST Unavailable Unavailable Yassine, A Diana INSURANCE ACCOUNT SPECIALIST Unavailable Unavailable Yassine, A Diana INSURANCE ACCOUNT SPECIALIST Unavailable Unavailable Yassine, A Diana INSURANCE ACCOUNT SPECIALIST Unavailable Unavailable Yassine, A Diana INSURANCE ACCOUNT SPECIALIST Unavailable Unavailable Yassine, A Diana INSURANCE ACCOUNT SPECIALIST Unavailable Unavailable Yassine, A Diana INSURANCE ACCOUNT SPECIALIST Unavailable Unavailable Yassine, A Diana INSURANCE ACCOUNT SPECIALIST Unavailable Unavailable Yassine, A Diana INSURANCE ACCOUNT SPECIALIST Unavailable Unavailable Yassine, A Diana INSURANCE ACCOUNT SPECIALIST Unavailable Unavailable Yassine, A Diana INSURANCE ACCOUNT SPECIALIST Unavailable Unavailable Yassine, A Diana INSURANCE ACCOUNT SPECIALIST Unavailable Unavailable Yassine, A Diana INSURANCE ACCOUNT SPECIALIST Unavailable Unavailable Yassine, A Diana INSURANCE ACCOUNT SPECIALIST Unavailable Unavailable Yassine, A Diana INSURANCE ACCOUNT SPECIALIST Unavailable Unavailable Yassine, A Diana INSURANCE ACCOUNT SPECIALIST Unavailable Unavailable Yassine, A Diana INSURANCE ACCOUNT SPECIALIST Unavailable Unavailable RAINEY, M JEMMA PA Unavailable [...] Roni II, El PA Unavailable Unavailable Griffith, Salem Malu Unavailable Unavailable Griffith, Salem Malu Unavailable Unavailable Griffith, Salem Malu Unavailable Unavailable Griffith, Salem Malu Unavailable Unavailable Griffith, Salem Malu Unavailable Unavailable Griffith, Salem Malu Unavailable Unavailable Griffith, Salem Malu Unavailable Unavailable Griffith, Salem Malu Unavailable Unavailable Griffith, Salem Malu Unavailable Unavailable Griffith, Salem Malu Unavailable Unavailable Griffith, Salem Malu Unavailable Unavailable Griffith, Salem Malu Unavailable Unavailable Griffith, Salem Malu Unavailable Unavailable SHREYAS SHIELDS MD Unavailable [...] Unavailable Unavailable ALYSON, SHREYAS CALDERON Unavailable Unavailable ALYOSN, SHREYAS CALDERON Unavailable Unavailable ALYSON, SHREYAS CALDERON Unavailable Unavailable ALYSON, SHREYAS CALDERON Unavailable Unavailable [place], A Diana INSURANCE ACCOUNT SPECIALIST Unavailable Unavailable [place], A Diana INSURANCE ACCOUNT SPECIALIST Unavailable Unavailable [place], A Diana INSURANCE ACCOUNT SPECIALIST Unavailable Unavailable [place], A Diana INSURANCE ACCOUNT SPECIALIST Unavailable Unavailable [place], A Diana INSURANCE ACCOUNT SPECIALIST Unavailable Unavailable [place], A Diana INSURANCE ACCOUNT SPECIALIST Unavailable Unavailable [place], A Diana INSURANCE ACCOUNT SPECIALIST Unavailable Unavailable [place], A Diana INSURANCE ACCOUNT SPECIALIST Unavailable Unavailable [place], A Dinaa INSURANCE ACCOUNT SPECIALIST Unavailable Unavailable [place], A Diana INSURANCE ACCOUNT SPECIALIST Unavailable Unavailable [place], A Diana INSURANCE ACCOUNT SPECIALIST Unavailable Unavailable [place], A Diana INSURANCE ACCOUNT SPECIALIST Unavailable Unavailable [place], A Diana INSURANCE ACCOUNT SPECIALIST Unavailable Unavailable [place], A Diana INSURANCE ACCOUNT SPECIALIST Unavailable Unavailable [place], A Diana INSURANCE ACCOUNT SPECIALIST Unavailable Unavailable [place], A Diana INSURANCE ACCOUNT SPECIALIST Unavailable Unavailable [place], A Diana INSURANCE ACCOUNT SPECIALIST Unavailable Unavailable [place], A Diana INSURANCE ACCOUNT SPECIALIST Unavailable Unavailable [place], A Diana INSURANCE ACCOUNT SPECIALIST Unavailable Unavailable [place], A Diana INSURANCE ACCOUNT SPECIALIST Unavailable Unavailable [place], A Diana INSURANCE ACCOUNT SPECIALIST Unavailable Unavailable [place], A Diana INSURANCE ACCOUNT SPECIALIST Unavailable Unavailable [place], A Diana INSURANCE ACCOUNT SPECIALIST Unavailable Unavailable [place], A Diana INSURANCE ACCOUNT SPECIALIST Unavailable Unavailable [place], A Diana INSURANCE ACCOUNT SPECIALIST Unavailable Unavailable [place], A Diana INSURANCE ACCOUNT SPECIALIST Unavailable Unavailable [place], A Diana INSURANCE ACCOUNT SPECIALIST Unavailable Unavailable [place], A Diana INSURANCE ACCOUNT SPECIALIST Unavailable Unavailable [place], A Diana INSURANCE ACCOUNT SPECIALIST Unavailable Unavailable [place], A Diana INSURANCE ACCOUNT SPECIALIST Unavailable Unavailable [place], A Diana INSURANCE ACCOUNT SPECIALIST Unavailable Unavailable Miguel Ángel Almanza Unavailable Megan Vasquez MD Unavailable Unavailable Megan Vasquez MD Unavailable Unavailable Megan Vasquez MD Unavailable Unavailable Megan Vasquez MD Unavailable Unavailable Megan Vasquez MD Unavailable Unavailable Megan Vasquez MD Unavailable Unavailable CombesMegan MD Unavailable Unavailable ChristinaMegan MD Unavailable Unavailable CombesMegan MD Unavailable Unavailable CombesMegan MD Unavailable Unavailable CombesMegan MD Unavailable Unavailable CombesMegan MD Unavailable Unavailable ChristinaMegan MD Unavailable Unavailable CombesMegan MD Unavailable Unavailable CombesMegan MD Unavailable Unavailable ChristinaMegan MD Unavailable Unavailable ChristinaMegan MD Unavailable Unavailable CombesMegan MD Unavailable Unavailable ChristinaMegan MD Unavailable Unavailable ChristinaMegan MD Unavailable Unavailable ChristinaMegan MD Unavailable Unavailable ChristinaMegan MD Unavailable Unavailable ChristinaMegan MD Unavailable Unavailable ChristinaMegan MD Unavailable Unavailable CombesMegan MD Unavailable Unavailable ChristinaMegan MD Unavailable Unavailable CombesMegan MD Unavailable Unavailable ChristinaMegan MD Unavailable Unavailable CombesMegan MD Unavailable Unavailable CombesMegan MD Unavailable Unavailable ChristinaMegan MD Unavailable Unavailable ChristinaMegan MD Unavailable Unavailable ChristinaMegan MD Unavailable Unavailable CombesMegan MD Unavailable Unavailable CombesMegan MD Unavailable Unavailable ChristinaMegan MD Unavailable Unavailable CombesMegan MD Unavailable Unavailable ChristinaMegan MD Unavailable Unavailable [...] Unavailable Dillard, C Callie PA Unavailable Unavailable Dilalrd, C Callie PA Unavailable Unavailable Fran, K Isidra PMH-FILTRATION OPERATOR Unavailable Unavailable [place], K Isidra PMH-FILTRATION OPERATOR Unavailable Unavailable [place], K Isidra PMH-FILTRATION OPERATOR Unavailable Unavailable Fran, K Isidra PMH-FILTRATION OPERATOR Unavailable Unavailable [place], K Isidra PMH-FILTRATION OPERATOR Unavailable Unavailable [place], K Isidra PMH-FILTRATION OPERATOR Unavailable Unavailable [place], K Isidra PMH-FILTRATION OPERATOR Unavailable Unavailable [place], K Isidra PMH-FILTRATION OPERATOR Unavailable Unavailable Re-disclosure Warning The records that [...] is protected by Article 27-F of the [facility] Public Health law. If you continue you may have access to information: Regarding HIV / AIDS; Provided by facilities licensed or operated by the [facility] Office of Mental Health; or Provided by the [facility] Office for People With Developmental Disabilities. If such information is present, then the following [facility] mandated warning applies: This information has [...] law may result in a fine or usp sentence or both. A general authorization for the release of medical or other information is NOT sufficient authorization for further disc losure. Family History Family Member Name Family Member Gender Family Member Status Date o f Status Description Data Source(s) Unknown Unknown Problem [facility] ([facility], ) Type unknown Encounters Encounter Providers Location Date Indications Data Source(s ) [facility] 02:00:00 AM EDT - 09/22/2021 02:00:00 AM EDT [facility] ([facility]) Attender: Ray Wade NP 09/22/2021 12:00:00 AM EDT [facility] ([facility]) Outpatient Attender: AUDREY MELGAR [facility] 08/26 03:00:00 PM EDT [facility] ([facility] Outpatient Attender: SHREYAS SHIELDS MDReferrer: SHREYAS SHIELDS MD SJGeorgie .EVANGELIST-SJP.EVANGELIST 09/15/2021 02:09:11 PM EDT - 09/15/2021 03:19:08 PM EDT [facility] Outpatient Attender: SHREYAS SHIELDS MDReferrer: SHREYAS VILLALOBOS .EVANGELIST-SJP.EVANGELIST 09/15/2021 02:07:34 PM EDT - 09/15/2021 03:18:59 PM EDT [facility] Outpatient Attender: JEMMA Rangel/Valmeyer/Jerman/Rein dl 08/29/2021 11:30:00 AM EDT [facility] ([facility], ) Outpatient Attender: Hailey WILLS [facility] 08/15/2021 02:15:00 PM EDT [facility] ([facility], ) Outpatient Attender: Kim Vinson Claire/Valmeyer/A ngel/Reindl 08/14/2021 10:30:00 AM EDT [facility] ([facility], ) Outpatient Attender: JEMMA Rangel/Valmeyer/Jerman/Rein dl 07/18/2021 04:00:00 PM EDT [facility] ([facility], ) Outpatient Attender: Hailey WILLS [facility] 07/14/2021 10:45:00 AM EDT [facility] ([facility]) Outpatient Attender: Ray Wade NP [facility] 07/13/2021 02:00:00 AM EDT - 07/13/2021 02:00:00 AM EDT [facility] ([facility]) Attender: Ray Wade NP 07/13/2021 12:00:00 AM EDT [facility] ([facility]) Outpatient Attender: El Arangoang/Valmeyer/Jerman/Rein dl 07/06/2021 01:15:00 PM EDT [facility] ([facility], ) Outpatient Attender: Kim Vinson Claire/Valmeyer/A jamesel/Reindl 07/06/2021 10:00:00 AM EDT [facility] ([facility]ie [facility]) Outpatient Attender: JEMMA Rangel/Valmeyer/Jerman/Rein dl 06/26/2021 11:00:00 AM EDT MED[facility] ([facility] Lisette richard[facility]) Diana Metzger [facility]: [address] [place] [address], Ph. Attender: Diana Metzger [facility] Medical 06/21/2021 12:00:00 AM EDT [facility] ([facility]) Outpatient Attender: SHREYAS VILLALOBOS.ARIELLA.EVANGELIST 12:00:00 AM EDT - 06/16/2021 02:05:02 PM EDT [facility] Diana Metzger [facility]: [address] [place] [address], Ph. Attender: Diana Metzger [facility] Medical 06/16/2021 12:00:00 AM EDT [facility] ([facility]) Diana Metzger [facility]: [address] [place] [address], Ph. Attender: Diana Metzger [facility] Medical 06/16/2021 12:00:00 AM EDT [facility] ([facility]) Outpatient Attender: JEMMA Rangel/Valmeyer/Jerman/Rein dl 05/25/2021 01:00:00 PM EDT [facility] ([facility]) Brief Individual Psychotherapy - 30 min Attender: Miguel Ángel Almanza [facility] 05/19/2021 02:00:00 AM EDT - 05/19/2021 02:00:00 AM EDT [facility] ([facility]) Attender: Miguel Ángel Almanza 05/19/2021 12:00:00 AM EDT [facility] ([facility]) Outpatient Attender: AUDREY MELGAR [facility] 04/25 11:00:00 AM EDT [facility] ([facility] Extended Individual Psychotherapy - 45 min Attender: [facility] 05/05/2021 02:00:00 AM EDT - 05/05/2021 02:00:00 AM EDT [facility] ([facility]) Attender: [facility] 05/05/2021 12:00:00 AM EDT [facility] ([facility]) [facility] 05/02/2021 02:00:00 AM EDT - 05/02/2021 02:00:00 AM EDT [facility] ([facility]) [facility] 05/02/2021 12: 00:00 AM EDT [facility] ([facility]) Extended Individual Psychotherapy - 45 min Attender: [facility] 04/17/2021 10:00:00 AM EDT - 04/17/2021 10:00:00 AM EDT [facility] ([facility]) Attender: [facility] 04/17/2021 12:00:00 AM EDT [facility] ([facility]) Outpatient Referrer: SHREYAS SHIELDS MD SJP.CT-SJP.[facility] 03/28/2021 12:00:00 AM EDT [facility] Felix Butt MD: [address] [place] [phone], Ph. Attender: Felix Butt MD [facility] Medical 03/28/2021 12:00:00 AM EDT [facility] ([facility]) Felix Butt MD: [address] [place] [phone], Ph. Attender: Felix Butt MD [facility] Medical 03/28/2021 12:00:00 AM EDT [facility] ([facility]) Felix Butt MD: [address] [place] [address], Ph. Attender: Felix Butt MD [facility] Medical 03/28/2021 12:00:00 AM EDT [facility] ([facility]) Outpatient Referrer: SHREYAS VILLALOBOS.EVANGELIST-SJP.EVANGELIST 03/24/2021 12:13:45 PM EDT [facility] Outpatient Attender: SHREYAS DAVISEVANGELIST-SJP.EVANGELIST 12:48:16 PM EDT - 03/17/2021 01:40:34 PM EDT [facility] Outpatient Attender: AUDREY MELGAR [facility] 02/24 08:45:00 AM EDT [facility] ([facility] Outpatient Attender: Isidra Peters [facility]-FILTRATION OPERATOR [facility] 03/16/2021 03:30:00 AM EDT - 03/16/2021 03:30:00 AM EDT [facility] ([facility]) Attender: Isidra Peters [facility]-FILTRATION OPERATOR 03/16/2021 12: 00:00 AM EDT [facility] ([facility]) Extended Individual Psychotherapy - 45 min [facility]/14[facility] 11:00:00 AM EDT - 03/14/2021 11:00:00 AM EDT [facility] ([facility]) Attender: Miguel Ángel Almanza 03/14/2021 12:00:00 AM EDT [facility] ([facility]) NELIA Frazier-: [address] [place] [address], Ph. Attender: Diana Yassine [facility] Medical 03/13/2021 12:00:00 AM EDT [facility] ([facility]) [facility]: [address], [place] [address], Ph. Attender: Diana Metzger [facility] Medical 03/13/2021 12:00:00 AM EDT [facility] ([facility]) [facility] [address], [place] [address], Ph. Attender: Diana Metzger [facility] Medical 03/13/2021 12:00:00 AM EDT [facility] ([facility]) [facility]: [address], [place] [address], Ph. Attender: Diana Metzger [facility] Medical 03/13/2021 12:00:00 AM EDT [facility] ([facility]) FARHANA StoddardC: [address], [place] [address], Ph. Attender: Malu Griffith [facility] Medical 03/01/2021 12:00:00 AM EDT [facility] ([facility]) FARHANA StoddardC: [address], [place] [address], Ph. Attender: Malu Griffith [facility] Medical 03/01/2021 12:00:00 AM EDT [facility] ([facility]) FRAHANA StoddardC: [address], [place] [address], Ph. Attender: Malu Griffith [facility] Medical 03/01/2021 12:00:00 AM EDT [facility] ([facility]) NELIA Stoddard-C: [address] [place] [address], Ph. Attender: Malu Griffith [facility] Medical 03/01/2021 12:00:00 AM EDT [facility] ([facility]) NELIA Stoddard-C: [address] [place] [address], Ph. Attender: Malu Griffith [facility] Medical 03/01/2021 12:00:00 AM EDT [facility] ([facility]) Extended Individual Psychotherapy - 45 min Attender: [facility] Cami [facility] 02/24/2021 11:00:00 AM EDT - 02/24/2021 11:00:00 AM EDT [facility] ([facility]) Attender: Miguel Ángel Almanza 02/24/2021 12:00:00 AM EDT [facility] ([facility]) Outpatient Attender: Riley WILLS Physical Therapy 02:45:00 PM EDT [facility] ([facility]) Outpatient Attender: Marielena Vasquez MDReferrer: Diana PICKENS 02/15/2021 02:12:51 PM EDT [facility] Recurring Patient Referrer: Callie WILLS 02/14/2021 0 1:14:37 PM EDT [facility] Outpatient Attender: Kim Rangel/Jayde/Glen nance/Shaniqua 02/13/2021 11:45:00 AM EDT [facility] ([facility]) NELIA Frazier-BC: [address] [place] [address], Ph. Attender: Diana PICKENS [facility] Medical 02/08/2021 12:00:00 AM EDT [facility] ([facility]) [facility]: [address], [place] [address], Ph. Attender: Diana Metzger [facility] Medical 02/08/2021 12:00:00 AM EDT [facility] ([facility]) [facility]: [address], [place] [address], Ph. Attender: Diana Metzger [facility] Medical 02/08/2021 12:00:00 AM EDT [facility] ([facility]) FARHANA Frazier: [address], [place] [address], Ph. Attender: Diana Metzger [facility] Medical 02/08/2021 12:00:00 AM EDT [facility] ([facility]) FARHANA Frazier: [address], [place] [address], Ph. Attender: Diana Metzger [facility] Medical 02/08/2021 12:00:00 AM EDT [facility] ([facility]) JAMARCUS FrazierPEssie: [address], [place] [address], Ph. Attender: Diana Metzger [facility] Medical 02/08/2021 12:00:00 AM EDT [facility] ([facility]) Recurring Patient Referrer: Callie WILLS 02/03/2021 1 1:15:12 AM EST [facility] Recurring Patient Referrer: Callie WILLS 02/03/2021 1 1:13:04 AM EST [facility] Outpatient Attender: AUDREY MELGAR [facility] 01/23 07:45:00 AM EST [facility] ([facility] Extended Individual Psychotherapy - 45 min Attender: [facility] 01/30/2021 10:00:00 AM EST - 01/30/2021 10:00:00 AM EST [facility] ([facility]) Attender: [facility] 01/30/2021 12:00:00 AM EST [facility] ([facility]) Attender: [facility] 12/22/2020 12:00:00 AM EST [facility] ([facility]) Extended Individual Psychotherapy - 45 min Attender: [facility] 12/21/2020 03:00:00 AM EST - 12/21/2020 03:00:00 AM EST [facility] ([facility]) Outpatient Attender: AUDREY MELGAR [facility] Office 11/26 08:00:00 AM EST [facility] ([facility] Outpatient Attender: Pricilla VILLALOBOS.EVANGELIST-SJPSegunEVANGELIST 2020 12:00:00 AM EST - 12/07/2020 01:57:25 PM EST [facility] Extended Individual Psychotherapy - 45 min Attender: [facility] 12/05/2020 12:00:00 PM EST - 12/05/2020 12:00:00 PM EST [facility] ([facility]) [facility]: [facility] [facility] 12[facility]05/2020 12:00:00 AM EST [facility] ([facility]) Outpatient Attender: Hailey WILLS [facility] 11/24/2020 08:15:00 AM EST MEDENT ([facility]) Outpatient Attender: Isidra Peters [facility] 11/21/2020 03:30:00 AM EST - 11/21/2020 03:30:00 AM EST [facility] ([facility]) Attender: Isidra SALES 11/21/2020 12: 00:00 AM EST [facility] ([facility]) Outpatient Attender: El Rangel/Valmeyer/Jerman/Rein dl 11/15/2020 07:00:00 AM EST MEDENT ([facility]) Extended Individual Psychotherapy - 45 min Attender: [facility] 11/01/2020 12:00:00 PM EST - 11/01/2020 12:00:00 PM EST [facility] ([facility] 11[facility]01/2020 12:00:00 AM EST [facility] ([facility]) Outpatient Attender: El Rangel/Valmeyer/Jerman/Rein dl 10/13/2020 12:45:00 PM EST MEDENT ([facility]) Extended Individual Psychotherapy - 45 min Attender: [facility] 10/05/2020 03:00:00 AM EST - 10/05/2020 03:00:00 AM EST [facility] ([facility]) [facility] 10/05/2020 12:00:00 AM EST [facility] ([facility]) Extended Individual Psychotherapy - 45 min Attender: [facility] 09/20/2020 04:00:00 AM EDT - 09/20/2020 04:00:00 AM EDT [facility] ([facility]) [facility] 09/20/2020 12:00:00 AM EDT [facility] ([facility]) Outpatient Attender: NELIA ALMARAZ 09/12/2020 12:07:03 P M EDT [facility] Patient Attender: Alcides ChReferrer: Callie WILLS 09/12/2020 12:01:29 PM EDT [facility] Outpatient Attender: Isidra Peters [facility] 08/29/2020 03:30:00 AM EDT - 08/29/2020 03:30:00 AM EDT [facility] ([facility]) Attender: Isidra Fran PM-FILTRATION OPERATOR 08/29/2020 12: 00:00 AM EDT [facility] ([facility]) Outpatient Attender: Diana Yassine [facility] 08/26/2020 11:2 6:02 AM EDT [facility] Extended Individual Psychotherapy - 45 min Att[facility] 08/26/2020 05:00:00 AM EDT - 08/26/2020 05:00:00 AM EDT [facility] ([facility]) Attender: Miguel Ángel Almanza 08/26/2020 12:00:00 AM EDT [facility] ([facility]) Outpatient Attender: CAMILA HAWKINS MD Physical Therapy 01:15:00 PM EDT MED[facility] ([facility] ) Outpatient Attender: NELIA Metzger [facility] 08/15/2020 07:32:02 P M EDT [facility] Outpatient Attender: AUDREY MELGAR [facility] Office 07/27 01:30:00 PM EDT [facility] ([facility] Outpatient Attender: INSURANCE ACCOUNT SPECIALIST [facility] 08/13/2020 09:53:00 A M EDT [facility] Outpatient Attender: [facility] 08/12/2020 03:09:00 P M EDT [facility] Outpatient Attender: [facility] 08/12/2020 07:50:01 A M EDT [facility] Outpatient Attender: Hailey WILLS Main office - [facility] 08/09/2020 02:00:00 PM EDT MED[facility] ([facility] ) Functional Status Immunizations Vaccine Date Status Description Data Source(s) COVID-19, mRNA, LNP-S, PF, 100 mcg/0.5 mL dose 03/28/2021 10 :24:02 AM EDT completed 10.5 mL [facility] ([facility]) COVID-19, mRNA, LNP-S, PF, 100 mcg/0.5 mL dose 03/28/2021 10 :24:02 AM EDT completed .5 mL [facility] ([facility]) COVID-19, mRNA, LNP-S, PF, 100 mcg/0.5 mL dose 03/28/2021 10 :24:02 AM EDT [facility] COVID-19 VACCINE Moderna 03/28/2021 12:00:00 AM EDT completed NYSIIS Vaccine Series Complete: YESThis Data wa s Submitted to [facility] Via [employer]. COVID-19, mRNA, LNP-S, PF, 100 mcg/0.5 mL dose 03/01/2021 11 :00:49 AM EDT completed 10.5 mL [facility]) COVID-19, mRNA, LNP-S, PF, 100 mcg/0.5 mL dose 03/01/2021 11 :00:49 AM EDT completed 10.5 mL [facility] ([facility]) COVID-19, mRNA, LNP-S, PF, 100 mcg/0.5 mL dose 03/01/2021 11 :00:49 AM EDT completed .5 mL [facility]) COVID-19, mRNA, LNP-S, PF, 100 mcg/0.5 mL dose 03/01/2021 11 :00:49 AM EDT completed .[facility] COVID-19, mRNA, LNP-S, PF, 100 mcg/0.5 mL dose 03/01/2021 11 :00:49 AM EDT completed .5 mL [facility] COVID-19 VACCINE Moderna 03/01/2021 12:00:00 AM EDT completed NYSIIS Vaccine Series Complete: NOThis Data was Submitted to [facility] Via [employer]. Medications Medication Brand Name Start Date Product [...] 08/14/2021 12:00:00 AM EDT ORAL active [facility] ([facility], ) 30 ACTUAT fluticasone furoate 0.2 MG/ACT UAT / vilanterol 0.025 MG/ACTUAT Dry Powder Inhaler [Breo] Breo Ellipta 07/18/2021 12:00:00 AM EDT OR AL active MEDENT ([facility]) 200 ACTUAT Albuterol 0.09 MG/ACTUAT Metered Dose Inhal er [Ventolin] Ventolin HFA 07/18/2021 12:00:00 AM EDT RESPIRATORY active MEDENT ([facility], ) POLYETHYLENE GLYCOL 3350 142 MG/ML Oral Solution [Miralax] M iralax 07/06/2021 12:00:00 AM EDT ORAL active M EDENT ([facility]) Betamethasone 0.5 MG/ML / Clotrimazole 10 MG/ML Topica l Cream Clotrimazole/Betamethasone Dipropionate 07/06/2021 12:00:00 AM EDT active MEDENT ([facility], ) ammonium lactate 120 MG/ML Topical Cream ammonium lact ate (AMLACTIN) 12 % cream ammonium lactate (AMLACTIN) 12 % cream 05/15/2021 12:00:00 AM EDT Topical active Apply topically daily [facility] Biotin 5 MG Oral Capsule Biotin 5000 05/12/2021 12:00:00 AM EDT ORAL active [facility] ([facility] Colchicine 0.6 MG Oral Tablet colchicine 0.6 MG tablet colch icine 0.6 MG tablet 03/17/2021 12:00:00 AM EDT 0.6 mg Oral active Take 1 tablet (0.6 mg total) by mouth daily [facility] Fluoxetine 40 MG Oral Capsule fluoxetine 03/16/2021 12:00:00 AM EDT 40 mg by mouth completed <td ID="Medica tionRxNorm_1">359813</td><td ID="MedicationMedication_1">fluoxetine</td><td ID="MedicationRoute_1">by mouth</td><td ID="MedicationRouteConcept_1">T66147</td><td ID="MedicationStartDate_1">03/16/2021</td><td ID="MedicationStopDate_1"></td><td ID="MedicationDosageFrequency_1">once a day</td><td ID="MedicationDuration_1"></td><td ID="MedicationFormulaStrength_1">40 mg</td><td ID="MedicationDosageForm_1">capsule</td><td ID="MedicationDosageFormCode_1"></td><td ID="MedicationDosageDescription_1"></td><td ID="MedicationMedicationId_1">[id number]</td><td ID="MedicationAccount_1">[id number]</td><td ID="MedicationNpid_1">[id number]</td><td ID="MedicationAuthorFirstName_1">Isidra</td><td ID="MedicationAuthorLastName_1">[place]</td><td ID="MedicationTaxonomyCode_1">[id number]</td><td ID="MedicationTaxonomyDesc_1">Psychiatric/Mental Health</td><td ID="MedicationPhoneNumber_1">[phone]</td> [facility] ([facility]) ammonium lactate 120 MG/ML Topical Cream Ammonium Lactate 03/16/2021 12:00:00 AM EDT active [facility] ([facility] Fluoxetine 40 MG Oral Capsule FLUoxetine (PROzac) 40 M G capsule FLUoxetine (PROzac) 40 MG capsule 03/16/2021 12:00:00 AM EDT 40 mg Oral active Take 40 mg by mouth daily [facility] pantoprazole 40 MG Delayed Release Oral Tablet Pantoprazole Sodium 02/13/2021 12:00:00 AM EDT completed MEDENT ([facility], ) Inject Dexamthosone Phosphate 18490-630-32 12/20/2020 12:00:00 A M EST completed [facility] ([facility] Medication administered onsite Inject Triamcinolone Acetonide 10 ML, [facility] [id number] 12/20/2020 12:00:00 AM EST completed [facility] ([facility] Medication administered onsite Metoprolol Tartrate 25 MG Oral Tablet me toprolol tartrate (LOPRESSOR) 25 MG tablet metoprolol tartrate (LOPRESSOR) 25 MG tablet 12/07/2020 12:0 0:00 AM EST 25 mg Oral active Chest pain, unspecified typePalp itations Take 1 tablet (25 mg total) by mouth daily Take daily in the evening [facility] Chest pain, unspecified type Palpitations Cyclobenzaprine hydrochloride 5 MG Oral Tablet cyclobenzaprine (FLEXERIL) 5 MG tablet cyclobenzaprine (FLEXERIL) 5 MG tablet 11/04/2020 12:00:00 AM EST aborted TAKE 1 TABLET B Y MOUTH THREE TIMES A DAY NEEDED FOR MUSCLE SPASMS [facility] Prednisone 20 MG Oral Tablet predniSONE (DELTASONE) 20 MG tablet predniSONE (DELTASONE) 20 MG tablet 11/04/2020 12:00:00 AM EST aborted TAKE 3 TABLETS 60MG BY MOUTH DAILY [facility] zonisamide 100 MG Oral Capsule zonisamide (ZONEGRAN) 1 00 MG capsule zonisamide (ZONEGRAN) 100 MG capsule 10/19/2020 12:00:00 AM EST 100 mg Oral active Take 100 mg by mouth [facility] ferrous sulfate 325 MG Delayed Release O ral Tablet ferrous sulfate 325 (65 FE) MG EC tablet ferrous sulfate 325 (65 FE) MG EC tablet 08/16/2020 12 :00:00 AM EDT 1 {tbl} Oral active Take 1 tablet by mouth daily [facility] Ondansetron 4 MG Disintegrating Oral Tab let ondansetron (ZOFRAN-ODT) 4 MG disintegrating tablet ondansetron (ZOFRAN-ODT) 4 MG disintegrating tablet 08/16/2020 12:00:00 AM EDT active DISSOLVE ONE TABLET ON TONGUE TWICE A DAY NEEDED [facility] zonisamide 100 MG Oral Capsule Zonisamide 08/09/2020 12:00:00 AM EDT ORAL active [facility] ([facility]) zonisamide 50 MG Oral Capsule zonisamide (ZONEGRAN) 50 MG capsule zonisamide (ZONEGRAN) 50 MG capsule 07/26/2020 12:00:00 AM EDT 50 mg Oral aborted Take 50 mg by mouth 2 (two) times a day [facility] zonisamide 25 MG Oral Capsule zonisamide (ZONEGRAN) 25 MG capsule zonisamide (ZONEGRAN) 25 MG capsule 06/21/2020 12:00:00 AM EDT aborted TAKE 1CAP.BY MOUTH IN P.M. X 1 WEEK 1CAP.2X/DAY X 1 WEEK THEN 1CAP IN A.M. 2 IN P.M. [facility] zonisamide 25 MG Oral Capsule Zonisamide 06/20/2020 [...] hydrocodone bitartrate 5 MG Oral Tablet [facility] ([facility]) Amoxicillin 500 MG Oral Capsule amoxicil justo 500 mg capsule TAKE 1 CAPSULE [500MG] BY MOUTH THREE TIMES A DAY FOR 7 DAYS amoxicillin 500 mg capsule TAKE 1 CAPSULE [500MG] BY MOUTH THREE TIMES A DAY FOR 7 DAYS completed amoxicillin 500 MG Oral Capsule [facility] ([facility]) Prednisone 20 MG Oral Tablet prednisone 20 mg tablet TAKE 3 TABLETS 60MG BY MOUTH DAILY prednisone 20 mg tablet TAKE 3 TABLETS 60MG BY MOUTH DAILY completed prednisone 20 MG Ora l Tablet [facility] ([facility]) Cyclobenzaprine hydrochloride 5 MG Oral Tablet cyclobenzaprine 5 mg tablet TAKE 1 TABLET BY MOUTH THREE TIMES A DAY NEEDED FOR MUSCLE SPASMS cyclobenzaprine 5 mg tablet TAKE 1 TABLET BY MOUTH THREE TIMES A DAY NEEDED FOR MUSCLE SPASMS completed cyclobenzaprine hydrochloride 5 MG Oral Tablet [facility] ([facility]) Prednisone 10 MG Oral Tablet prednisone 10 [...] completed prednisone 10 MG Oral Tablet [facility] ([facility]) Cyclobenzaprine hydrochloride 5 MG Oral Tablet cyclobenzaprine 5 mg tablet TAKE 1 TABLET BY MOUTH THREE TIMES A DAY NEEDED FOR MUSCLE SPASMS cyclobenzaprine 5 mg tablet TAKE 1 TABLET BY MOUTH THREE TIMES A DAY NEEDED FOR MUSCLE SPASMS completed cyclobenzaprine hydrochloride 5 MG Oral Tablet [facility] ([facility]) Acetaminophen 325 MG / Hydrocodone Alison trate [...] hydrocodone bitartrate 5 MG Oral Tablet [facility] ([facility]) Cyclobenzaprine hydrochloride 5 MG Oral Tablet cyclobenzaprine 5 mg tablet TAKE 1 TABLET BY MOUTH THREE TIMES A DAY NEEDED FOR MUSCLE SPASMS cyclobenzaprine 5 mg tablet TAKE 1 TABLET BY MOUTH THREE TIMES A DAY NEEDED FOR MUSCLE SPASMS completed cyclobenzaprine hydrochloride 5 MG Oral Tablet [facility] ([facility]) zonisamide 25 MG Oral Capsule zonisamide 25 mg capsule TAKE 1CAP.BY MOUTH IN P.M. X 1 WEEK 1CAP.2X/DAY X 1 WEEK THEN 1CAP IN A.M. 2 IN P.M. zonisamide 25 mg capsule TAKE 1CAP.BY MOUTH IN P.M. X 1 WEEK 1CAP.2X/DAY X 1 WEEK THEN 1CAP IN A.M. 2 IN P.M. completed zonisa mide 25 MG Oral Capsule [facility] ([facility]) Fluoxetine 20 MG Oral Capsule FLUoxetine (PROZAC) 20 M G capsule FLUoxetine (PROZAC) 20 MG capsule 60 mg Oral aborted T tomas 60 mg by mouth daily [facility] Prednisone 20 MG Oral Tablet prednisone 20 mg tablet TAKE 3 TABLETS 60MG BY MOUTH DAILY prednisone 20 mg tablet TAKE 3 TABLETS 60MG BY MOUTH DAILY completed prednisone 20 MG Ora l Tablet [facility] ([facility]) zonisamide 50 MG Oral Capsule zonisamide 50 mg capsule TAKE ONE CAPSULE BY MOUTH TWICE A DAY zonisamide 50 mg capsule TAKE ONE CAPSULE BY MOUTH TWICE A DAY completed zonisamide 50 MG Oral Capsule [facility] ([facility]) zonisamide 25 MG Oral Capsule zonisamide 25 mg capsule TAKE 1CAP.BY MOUTH IN P.M. X 1 WEEK 1CAP.2X/DAY X 1 WEEK THEN 1CAP IN A.M. 2 IN P.M. zonisamide 25 mg capsule TAKE 1CAP.BY MOUTH IN P.M. X 1 WEEK 1CAP.2X/DAY X 1 WEEK THEN 1CAP IN A.M. 2 IN P.M. completed zonisa mide 25 MG Oral Capsule [facility] ([facility]) Amoxicillin 500 MG Oral Capsule amoxicil justo 500 mg capsule TAKE 1 CAPSULE [500MG] BY MOUTH THREE TIMES A DAY FOR 7 DAYS amoxicillin 500 mg capsule TAKE 1 CAPSULE [500MG] BY MOUTH THREE TIMES A DAY FOR 7 DAYS completed amoxicillin 500 MG Oral Capsule [facility] ([facility]) Amoxicillin 500 MG Oral Capsule amoxicil justo 500 mg capsule TAKE 1 CAPSULE [500MG] BY MOUTH THREE TIMES A DAY FOR 7 DAYS amoxicillin 500 mg capsule TAKE 1 CAPSULE [500MG] BY MOUTH THREE TIMES A DAY FOR 7 DAYS completed amoxicillin 500 MG Oral Capsule [facility] ([facility]) Prednisone 20 MG Oral Tablet prednisone 20 mg tablet TAKE 3 TABLETS 60MG BY MOUTH DAILY prednisone 20 mg tablet TAKE 3 TABLETS 60MG BY MOUTH DAILY completed prednisone 20 MG Ora l Tablet [facility] ([facility]) Prednisone 10 MG Oral Tablet prednisone 10 [...] completed prednisone 10 MG Oral Tablet [facility] ([facility]) Metoprolol Tartrate 25 MG Oral Tablet me toprolol tartrate (LOPRESSOR) 25 MG tablet metoprolol tartrate (LOPRESSOR) 25 MG tablet 25 mg Ora l aborted Take 25 mg by mouth 2 (two) times a day [facility] zonisamide 50 MG Oral Capsule zonisamide 50 mg capsule TAKE ONE CAPSULE BY MOUTH TWICE A DAY zonisamide 50 mg capsule TAKE ONE CAPSULE BY MOUTH TWICE A DAY completed zonisamide 50 MG Oral Capsule [facility] ([facility]) zonisamide 25 MG Oral Capsule zonisamide 25 mg capsule TAKE 1CAP.BY MOUTH IN P.M. X 1 WEEK 1CAP.2X/DAY X 1 WEEK THEN 1CAP IN A.M. 2 IN P.M. zonisamide 25 mg capsule TAKE 1CAP.BY MOUTH IN P.M. X 1 WEEK 1CAP.2X/DAY X 1 WEEK THEN 1CAP IN A.M. 2 IN P.M. completed zonisa mide 25 MG Oral Capsule [facility] ([facility]) Prednisone 10 MG Oral Tablet prednisone 10 [...] completed prednisone 10 MG Oral Tablet [facility] ([facility]) Acetaminophen 325 MG / Hydrocodone Alison trate [...] hydrocodone bitartrate 5 MG Oral Tablet [facility] ([facility]) Omeprazole 40 MG Delayed Release Oral Ca psule omeprazole (PRILOSEC) 40 MG capsule omeprazole (PRILOSEC) 40 MG capsule 40 mg Oral aborted Take 40 mg by mouth daily [facility] zonisamide 50 MG Oral Capsule zonisamide 50 mg capsule TAKE ONE CAPSULE BY MOUTH TWICE A DAY zonisamide 50 mg capsule TAKE ONE CAPSULE BY MOUTH TWICE A DAY completed zonisamide 50 MG Oral Capsule [facility] ([facility]) Amoxicillin 500 MG Oral Capsule amoxicil justo 500 mg capsule TAKE 1 CAPSULE [500MG] BY MOUTH THREE TIMES A DAY FOR 7 DAYS amoxicillin 500 mg capsule TAKE 1 CAPSULE [500MG] BY MOUTH THREE TIMES A DAY FOR 7 DAYS completed amoxicillin 500 MG Oral Capsule [facility] ([facility]) Trazodone Hydrochloride 100 MG Oral Tablet traZODone ( DESYREL) 100 MG tablet traZODone (DESYREL) 100 MG tablet {tbl} Oral abor nic Take 1-2 tablets by mouth nightly [facility] Prednisone 20 MG Oral Tablet prednisone 20 mg tablet TAKE 3 TABLETS 60MG BY MOUTH DAILY prednisone 20 mg tablet TAKE 3 TABLETS 60MG BY MOUTH DAILY completed prednisone 20 MG Ora l Tablet [facility] ([facility]) Cyclobenzaprine hydrochloride 5 MG Oral Tablet cyclobenzaprine 5 mg tablet TAKE 1 TABLET BY MOUTH THREE TIMES A DAY NEEDED FOR MUSCLE SPASMS cyclobenzaprine 5 mg tablet TAKE 1 TABLET BY MOUTH THREE TIMES A DAY NEEDED FOR MUSCLE SPASMS completed cyclobenzaprine hydrochloride 5 MG Oral Tablet [facility] ([facility]) zonisamide 25 MG Oral Capsule zonisamide 25 mg capsule TAKE 1CAP.BY MOUTH IN P.M. X 1 WEEK 1CAP.2X/DAY X 1 WEEK THEN 1CAP IN A.M. 2 IN P.M. zonisamide 25 mg capsule TAKE 1CAP.BY MOUTH IN P.M. X 1 WEEK 1CAP.2X/DAY X 1 WEEK THEN 1CAP IN A.M. 2 IN P.M. completed zonisa mide 25 MG Oral Capsule [facility] ([facility]) zonisamide 50 MG Oral Capsule zonisamide 50 mg capsule TAKE ONE CAPSULE BY MOUTH TWICE A DAY zonisamide 50 mg capsule TAKE ONE CAPSULE BY MOUTH TWICE A DAY completed zonisamide 50 MG Oral Capsule [facility] ([facility]) Prednisone 10 MG Oral Tablet prednisone 10 [...] completed prednisone 10 MG Oral Tablet [facility] ([facility]) Loratadine 10 MG Oral Tablet loratadine (CLARITIN) 10 MG tablet loratadine (CLARITIN) 10 MG tablet aborted loratadine 10 mg tablet TAKE ONE TABLET BY MOUTH EVERY DAY [facility] Acetaminophen 325 MG / Hydrocodone Alsion trate 5 MG Oral Tablet hydrocodone 5 [...] hydrocodone bitartrate 5 MG Oral Tablet [facility] ([facility]) Insurance Providers Payer name Policy type / Coverage type Policy ID Covered libertarian ID Covered libertarian's relationship to vale Policy Vale Plan Information MEDICARE [id number] A MEDICARE [id number] SP [id number] Medicare [facility] Medicare Primary [id number] Self [id number] Medicare [facility] Medicare Primary [id number] Self [id number] MEDICARE [id number] SP [id number] A Medicare [place] Medicare Primary [id number] Self 6 [id number] MEDICARE A [id number] Self [id number] A MEDICAID [id number] SP [id number] Medicare P [id number] S [id number] Medicare P [id number] S [id number] A Medicaid S [id number] S [id number] Medicare C [id number] SELF [id number] Medicaid [facility] S D [id number] SELF [id number] DME Jurisdiction A [facility] C [id number] SELF [id number] Medicare C [id number] SELF [id number] A Medicaid [facility] S D [id number] SELF [id number] Medicaid S [id number] S [id number] MEDICAID M [id number] Self [id number] Medicaid S [id number] S [id number] MEDICAID [id number] SP [id number] Medicaid [facility] S D [id number] SELF [id number] MEDICAID [id number] SP [id number] Medicaid S [id number] S [id number] EMEDNY [id number] SP [id number] [place] [id number] SP [id number] D MEDICAID [id number] SP [id number] [place] Medig[place] Part [place] [id number] Self [id number] [place] Med[place] [id number] Self [id number] [place] [id number] Self [id number] [facility] MEDICARE [id number] Kiana [id number] Medicare Wrap O [id number] S [id number] [facility] MCR Ppo Health Maintenance Organization (HMO) [id number] Self [id number] [facility] [employer] P [id number] S [id number] Medicare S [id number] S [id number] [facility] Comm Plan Medicare F [id number] SELF [id number] [facility] MEDICARE [id number] xxxxxxxxx [id number] Managed Care - Community Plan [facility] P [id number] S [id number] Medicaid S [id number] S [id number] [facility] [employer] P [id number] S [id number] Medicaid S [id number] S [id number] [employer] Medicare F [id number] SELF [id number] HUMANA MEDICARE [id number] xxxxxxxxx [id number] HUMANA MEDICARE [id number] Kiana [id number] MEDICAID -RECURRING [id number] MEDICARE -RECURRING [id number] 18 [id number] MEDICAID [id number] S [id number] [facility] MEDICARE DIVISION [id number] S [id number] MEDICARE - [place] [id number] S [id number] Medicare P [id number] S [id number] A Medicaid [place] Medigap Part B [id number] Self [id number] Medicare [place] Medicare Primary [id number] Self 1 [id number] [place] Medigap Part B [id number] Self [id number] Medicare [place] Medicare Primary [id number] Self 1 [id number] MEDICARE [id number] SP [id number] A Medicare [place] Primary [id number] [place] [id number] [place] Part [id number] Self Medicare [facility] Medicare Primary [id number] Self MEDICAID [id number] SP [id number] MEDICAID [id number] SP [id number] MEDICAID [id number] SP [id number] MEDICAID [id number] SP [id number] MEDICAID [id number] SP [id number] Medicaid Medigap Part B [id number] Self Medicare Medicare Primary [id number] Self MEDICARE [id number] SP [id number] SELF PAY UNAVAILABLE SP UNAVAILA BLE HUMANA GOLD [id number] SP [id number] MEDICAID [id number] Kiana [id number] MEDICAID [id number] xxxxxxxx [id number] [employer] GOLD [id number] SP [id number] [id number] SP [id number] MEDICARE COMPLETE-[facility] O [id number] S [id number] MEDICARE COMPLETE [id number] SP [id number] MEDICARE COMPLETE [id number] SP [id number] [facility] [id number] SP [id number] [facility] SP MEDICAID M [id number] S [id number] [facility](MCAID) O [id number] S [id number] [facility] SP OTHER WORKERS COMPENSATION [id number] SP [id number] MEDICARE COMPLETE-[facility] O [id number] S [id number] MEDICAID M [id number] S [id number] Medicare Wrap O [id number] S [id number] MEDICARE [id number] Kiana [id number] Medicaid Medicaid [id number] Self [id number] [facility] Comm Dual Plan Commercial [id number] Self [id number] Medicaid Medicaid [id number] Self [id number] [facility] Comm Dual Plan Commercial [id number] Self [id number] Medicaid Medicaid [id number] Self [id number] [facility] Comm Dual Plan Commercial [id number] Self [id number] Medicaid Medicaid [id number] Self [id number] [facility] Comm Dual Plan Commercial [id number] Self [id number] [facility] P [id number] S [id number] MEDICARE COMPLETE [id number] SP [id number] [facility] MEDICARE PI PI MEDICAID PI PI MEDICARE [id number] Kiana [id number] A Medicaid [facility] Healthcare S D [id number] SELF [id number] Medicare C [id number] SELF [id number] A MEDICAID [id number] SP [id number] MEDICARE C [id number] S [id number] A [place] Med[place] Part B [id number] Self [id number] Medicare [place]/[facility] Medicare Primary [id number] Self 1 [id number] Medicaid Medicaid [id number] S elf [id number] Medicare Medicare Primary [id number] Self [id number] Medicaid [facility] Part B [id number] Self [id number] Medicare [facility] Medicare Primary [id number] Self 1 [id number] Medicaid [facility] Part B [id number] Self [id number] Medicare [facility] Medicare Primary [id number] Self 1 [id number] Problems, Conditions, and Diagnoses Code Display Name Description Problem Type Effective Dates Data Source(s) R06.02 Shortness of breath Shortness of breath Diagnosis 1 02:07:34 PM EDT [facility] R07.9 Chest pain, unspecified Chest pain, unspecified Diagno sis 09/15/2021 02:07:34 PM EDT [facility] I49.3 Ventricular premature depolarization Ventricular premature depolarization Diagnosis 09/15/2021 02:07:34 PM EDT [facility] 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 Other disorders of intestinal carbohydra Diagnosis 06/16/2021 12:46:12 PM EDT [facility] I26.99 Other pulmonary embolism without acute c or pulmonale Other pulmonary embolism without acute c Diagnosis 06/16/2021 12:46:12 PM EDT [facility] E55.9 Vitamin D deficiency, unspecified Vitamin D defi ciency, unspecified Diagnosis 06/16/2021 12:46:12 PM EDT [facility] E66.01 Morbid (severe) obesity due to excess ca lories Morbid (severe) obesity due to excess ca Diagnosis 06/16/2021 12:46:12 PM EDT [facility] G43.909 Migraine, unspecified, not intractable, without status migrainosus Migraine, unspecified, not intractable, Diagnosis 06/16/2021 12:46:12 PM EDT [facility] K21.9 Gastro-esophageal reflux disease without esophagitis Gastro-esophageal reflux disease without Diagnosis 06/16/2021 12:46:[address] [facility] J45.20 Mild intermittent asthma, uncomplicated Mild intermittent asthma, uncomplicated Diagnosis 06/16/2021 12:46:12 PM EDT [facility] E78.5 Hyperlipidemia, unspecified Hyperlipidemia, unspecifie d Diagnosis 06/16/2021 12:46:12 PM EDT [facility] F32.9 Major depressive disorder, single episod e, unspecified Major depressive disorder, single episod Diagnosis 03/17/2021 12:48:16 PM EDT [facility] R00.2 Palpitations Palpitations Diagnosis 03/17/2021 12:48:16 P M EDT [facility] Z86.711 Personal history of pulmonary embolism P ersonal history of pulmonary embolism Diagnosis 03/17/2021 12:48:16 PM EDT [facility] R94.31 Abnormal electrocardiogram [ECG] [EKG] A bnormal electrocardiogram (ECG) (EKG) Diagnosis 03/17/2021 12:48:16 PM EDT [facility] R42 Dizziness and giddiness Dizziness and giddiness Diagno sis 12/07/2020 01:01:38 PM EST [facility] E78.49 Other hyperlipidemia Other hyperlipidemia Diagnosis 12/07/2020 01:01:38 PM EST [facility] F33.9 Major depressive disorder, recurrent, un specified Major Depressive Disorder, Recurrent episode, Unspecified Condition 09/22/2021 12:00:00 AM EDT [facility] ([facility]) J45.20 Mild intermittent asthma Mild intermittent asthma Prob jaylen 07/18/2021 12:00:00 AM EDT [facility] ([facility] ) E74.39 Glucose intolerance Glucose intolerance [id number] 06/16/2021 12:00:00 AM EDT [facility] [id number] Body mass index 40+ - severely obese Bod y Mass Index 40+ - Severely Obese Problem 03/14/2021 12:00:00 AM EDT [facility] ([facility]) [id number] Body mass index 40+ - severely obese Bod y Mass Index 40+ - Severely Obese Problem 03/14/2021 12:00:00 AM EDT [facility] ([facility]) [id number] Body mass index 40+ - severely obese Bod y Mass Index 40+ - Severely Obese Problem 03/14/2021 12:00:00 AM EDT [facility] ([facility]) [id number] Body mass index 40+ - severely obese Bod y Mass Index 40+ - Severely Obese Problem 03/14/2021 12:00:00 AM EDT [facility]) S93.401D Sprain of right ankle Sprain of right ankle Problem 02/13/2021 12:00:00 AM EDT [facility] ([facility] M72.2 Plantar fascial fibromatosis Plantar fascial fibromato sis Problem 12/21/2020 12:00:00 AM EST [facility] ([facility] M79.671 Pain in limb Pain [...] Nausea Nausea 08/15/2020 07:31:29 PM ED T [facility] [id number] Nausea Nausea Problem 08/15/2020 12:00:00 AM ED T [facility] ([facility]) [id number] Nausea Nausea Problem 08/15/2020 12:00:00 AM ED T [facility] ([facility]) [id number] Nausea Nausea Problem 08/15/2020 12:00:00 AM ED T [facility] ([facility]) [id number] Nausea Nausea Problem 08/15/2020 12:00:00 AM ED T [facility] ([facility]) [id number] Nausea Nausea Problem 08/15/2020 12:00:00 AM ED T [facility] ([facility]) [id number] Nausea Nausea Problem 08/15/2020 12:00:00 AM ED T [facility] ([facility]) [id number] Pain in limb Pain in limb Problem 06/25/2020 12:0 0:00 AM EDT - 08/22/2020 12:00:00 AM EDT [facility] ([facility] Other synovitis and tenosynovitis, right ankle and foot Other synovitis and tenosynovitis, right ankle and foot Problem 06/25/2020 12:00:0 0 AM EDT - 08/22/2020 12:00:00 AM EDT [facility] ([facility] Surgeries/Procedures Procedure Description Date Indications Data Source(s) [facility] Telemed E/M Lvl 3--Est pt 09/22/2021 12:00:00 AM EDT - 09/22/2021 12:00:00 AM EDT [facility] ([facility]) [facility] Telemed E/M Lvl 3--Est pt 09/22/2021 12:00:00 AM E DT [facility] ([facility]) OFFICE OUTPATIENT VISIT 10 MINUTES 09/21/2021 12:00:00 AM EDT [facility] ([facility] Spirometry 08/29/2021 12:00:00 AM EDT M [facility] ([facility], ) OFFICE OUTPATIENT VISIT 15 MINUTES 08/29/2021 12:00:00 AM EDT [facility] ([facility]) OFFICE OUTPATIENT VISIT 25 MINUTES 08/15/2021 12:00:00 AM EDT [facility] ([facility]) OFFICE OUTPATIENT VISIT 15 MINUTES 08/14/2021 12:00:00 AM EDT [facility] ([facility]) MRI SPINAL CANAL CERVICAL W/O CONTRAST MATRL 12:00:00 AM EDT [facility] ([facility]) MRI SPINAL CANAL CERVICAL W/O CONTRAST MATRL 12:00:00 AM EDT [facility] ([facility]) OFFICE OUTPATIENT VISIT 25 MINUTES 07/18/2021 12:00:00 AM EDT [facility] ([facility]) OFFICE OUTPATIENT VISIT 25 MINUTES 07/14/2021 12:00:00 AM EDT [facility] ([facility]) MHC Telemed E/M Lvl 3--Est pt 07/13/2021 12:00:00 AM EDT - 07/13/2021 12:00:00 AM EDT [facility] ([facility]) MHC Telemed E/M Lvl 3--Est pt 07/13/2021 12:00:00 AM E DT [facility] ([facility]) Remove Impacted Cerumen 07/06/2021 12:00:00 AM EDT [facility] ([facility]) OFFICE OUTPATIENT VISIT 15 MINUTES 07/06/2021 12:00:00 AM EDT [facility] ([facility]) OFFICE OUTPATIENT VISIT 25 MINUTES 07/06/2021 12:00:00 AM EDT [facility] ([facility]) OFFICE OUTPATIENT VISIT 25 MINUTES 06/26/2021 12:00:00 AM EDT [facility] ([facility]) Spirometry 05/25/2021 12:00:00 AM EDT M [facility] ([facility]) OFFICE OUTPATIENT NEW 45 MINUTES 05/25/2021 12:00:00 A M EDT [facility] ([facility]) Brief Individual Psychotherapy - 30 min 05/19/2021 12:00:00 AM EDT - 05/19/2021 12:00:00 AM EDT [facility] ([facility]) Brief Individual Psychotherapy - 30 min 05/19/2021 12: 00:00 AM EDT [facility] ([facility]) OFFICE OUTPATIENT VISIT 10 MINUTES 05/12/2021 12:00:00 AM EDT [facility] ([facility] Extended Individual Psychotherapy - 45 min 05/05/2021 12:00:00 AM EDT - 05/05/2021 12:00:00 AM EDT [facility] ([facility]) Extended Individual Psychotherapy - 45 min 12:00:00 AM EDT [facility] ([facility]) MHC Telemed E/M Lvl 2--Est pt 05/02/2021 12:00:00 AM EDT - 05/02/2021 12:00:00 AM EDT [facility] ([facility]) MHC Telemed E/M Lvl 2--Est pt 05/02/2021 12:00:00 AM E DT [facility] ([facility]) MRI BRAIN BRAIN STEM W/O CONTRAST MATERIAL 04/18/2021 12:00:00 AM EDT [facility] ([facility] ) MRI BRAIN BRAIN STEM W/O CONTRAST MATERIAL 04/18/2021 12:00:00 AM EDT [facility] ([facility] ) Extended Individual Psychotherapy - 45 min 04/17/2021 12:00:00 AM EDT - 04/17/2021 12:00:00 AM EDT [facility] ([facility]) Extended Individual Psychotherapy - 45 min 12:00:00 AM EDT [facility] ([facility]) Endoscopy Upper GI Complex Diagnostic 03/31/2021 12:00 :00 AM EDT [facility] ([facility], ) Dilate Esophagus Unguided Sound Or Bougie 03/31/2021 1 2:00:00 AM EDT [facility] ([facility], ) OFFICE OUTPATIENT VISIT 15 MINUTES 03/16 12:00:00 AM EDT - 03/16/2021 12:00:00 AM EDT [facility] ([facility]) OFFICE OUTPATIENT VISIT 15 MINUTES 03/16/2021 12:00:00 AM EDT [facility] ([facility]) Extended Individual Psychotherapy - 45 min 03/14/2021 12:00:00 AM EDT - 03/14/2021 12:00:00 AM EDT [facility] ([facility]) Extended Individual Psychotherapy - 45 min 12:00:00 AM EDT [facility] ([facility]) Extended Individual Psychotherapy - 45 min 02/24/2021 12:00:00 AM EDT - 02/24/2021 12:00:00 AM EDT [facility] ([facility]) Extended Individual Psychotherapy - 45 min 12:00:00 AM EDT [facility] ([facility]) OFFICE OUTPATIENT NEW 45 MINUTES 02/13/2021 12:00:00 A M EDT [facility] ([facility] ) Extended Individual Psychotherapy - 45 min 01/30/2021 12:00:00 AM EST - 01/30/2021 12:00:00 AM EST [facility] ([facility]) Extended Individual Psychotherapy - 45 min 12:00:00 AM EST [facility] ([facility]) Extended Individual Psychotherapy - 45 min 12/22/2020 12:00:00 AM EST - 12/22/2020 12:00:00 AM EST [facility] ([facility]) Extended Individual Psychotherapy - 45 min 12:00:00 AM EST [facility] ([facility]) ARTHROCENTESIS ASPIR&/INJECTION INTERM JT/BURSA 2020 12:00:00 AM EST [facility] ([facility] ECG ROUTINE ECG W/LEAST 12 LDS W/I&R <td>POCT AMB EKG</td><td>Routine</td><td>12/07/2020 1:04 PM EST</td><td> Palpitations Chest pain, unspecified type</td><td> </td> 12/07/2020 06:04:00 PM EST Chest pain, unspecified typePalpitations [facility] Chest pain, unspecified type Palpitations Extended Individual Psychotherapy - 45 min 12/05/2020 12:00:00 AM EST - 12/05/2020 12:00:00 AM EST [facility] ([facility]) Extended Individual Psychotherapy - 45 min 12:00:00 AM EST [facility] ([facility]) [facility] Telemed E/M Lvl 3--Est pt 11/21/2020 12:00:00 AM EST - 11/21/2020 12:00:00 AM EST [facility] ([facility]) Telemed A/O 30" 11/21/2020 12:00:00 AM EST [facility] ([facility]) [facility] Telemed E/M Lvl 3--Est pt 11/21/2020 12:00:[address] [facility] ([facility]) Extended Individual Psychotherapy - 45 min 11/01/2020 12:00:00 AM EST - 11/01/2020 12:00:00 AM EST [facility] ([facility]) Extended Individual Psychotherapy - 45 min 0 12:00:00 AM EST [facility] ([facility]) Extended Individual Psychotherapy - 45 min 10/05/2020 12:00:00 AM EST - 10/05/2020 12:00:00 AM EST [facility] ([facility]) Extended Individual Psychotherapy - 45 min 0 12:00:00 AM EST [facility] ([facility]) Extended Individual Psychotherapy - 45 min 09/20/2020 12:00:00 AM EDT - 09/20/2020 12:00:00 AM EDT [facility] ([facility]) Extended Individual Psychotherapy - 45 min 0 12:00:00 AM EDT [facility] ([facility]) MHC Telemed E/M Lvl 3--Est pt 08/29/2020 12:00:00 AM EDT - 08/29/2020 12:00:00 AM EDT [facility] ([facility]) Telemed A/O 30" 08/29/2020 12:00:00 AM EDT [facility] ([facility]) MHC Telemed E/M Lvl 3--Est pt 08/29/2020 12:00:00 AM E DT [facility] ([facility]) Extended Individual Psychotherapy - 45 min 08/26/2020 12:00:00 AM EDT - 08/26/2020 12:00:00 AM EDT [facility] ([facility]) Extended Individual Psychotherapy - 45 min 0 12:00:00 AM EDT [facility] ([facility]) RADEX ANKLE COMPLETE MINIMUM 3 VIEWS 08/19/2020 12:00: 00 AM EDT [facility] ([facility]) RADEX FOOT COMPLETE MINIMUM 3 VIEWS 08/19/2020 12:00:0 0 AM EDT [facility] ([facility]) RADEX ANKLE COMPLETE MINIMUM 3 VIEWS 08/19/2020 12:00: 00 AM EDT [facility] ([facility]) RADEX FOOT COMPLETE MINIMUM 3 VIEWS 08/19/2020 12:00:0 0 AM EDT [facility] ([facility]) Results ID Date Data Source [id number] 09/16/2021 11:19:50 PM EDT [facility] Name Value Range Interpretation Code Description Data Jennifer rce(s) Supporting Document(s) &PDF [facility] ZUEVPm6eZbCBDrTy53/STBjpNJXla9ExHVkyGNw2HMfxJOEzM1GyvUkeCE2TUehIVjmYJiMYRJfzVXRw vci [file] AgICAgICAgICAgICAgICAgICAgICAgICAgICAgICAg ICAgICAgICAgICAgICAgICAgICAgICAgICAgICAgICAgICAgICAgICAgICAgICAgICAgICAgICAgICAg ICAgICANCiAgICAgICAgICAgICAgICAgICAgICAgICAgICAgICAgICAgICAgICAgICAgICAgICAgICAg ICAgICAgICAgICAgICAgICAgICAgICAgICAgICAgIC AgICAgICAgICAgICAgICANCiAgICAgICAgICAgICAgICAgICAgICAgICAgICAgICAgICAgICAgICAgIC AgICAgICAgICAgICAgICAgICAgICAgICAgICAgICAgICAgICAgICAgICAgICAgICAgICAgICAgICANCi AgICAgICAgICAgICAgICAgICAgICAgICAgICAgICAg ICAgICAgICAgICAgICAgICAgICAgICAgICAgICAgICAgICAgICAgICAgICAgICAgICAgICAgICAgICAg ICAgICAgICANCiAgICAgICAgICAgICAgICAgICAgICAgICAgICAgICAgICAgICAgICAgICAgICAgICAg ICAgICAgICAgICAgICAgICAgICAgICAgICAgICAgIC AgICAgICAgICAgICAgICAgICANCiAgICAgICAgICAgICAgICAgICAgICAgICAgICAgICAgICAgICAgIC AgICAgICAgICAgICAgICAgICAgICAgICAgICAgICAgICAgICAgICAgICAgICAgICAgICAgICAgICAgIC ANCiAgICAgICAgICAgICAgICAgICAgICAgICAgICAg ICAgICAgICAgICAgICAgICAgICAgICAgICAgICAgICAgICAgICAgICAgICAgICAgICAgICAgICAgICAg ICAgICAgICAgICANCiAgICAgICAgICAgICAgICAgICAgICAgICAgICAgICAgICAgICAgICAgICAgICAg ICAgICAgICAgICAgICAgICAgICAgICAgICAgICAgIC AgICAgICAgICAgICAgICAgICAgICANCiAgICAgICAgICAgICAgICAgICAgICAgICAgICAgICAgICAgIC AgICAgICAgICAgICAgICAgICAgICAgICAgICAgICAgICAgICAgICAgICAgICAgICAgICAgICAgICAgIC AgICANCiAgICAgICAgICAgICAgICAgICAgICAgICAg ICAgICAgICAgICAgICAgICAgICAgICAgICAgICAgICAgICAgICAgICAgICAgICAgICAgICAgICAgICAg ICAgICAgICAgICAgICANCjw/gHDmF6velBUkjiT4M3yuJs8ASa4PXF7vn8CnLDMdNSkdojFlCnuUOlVs JGCnVjbYMme9EDsnUB9VuXPfM9SvM7BdJOmkCA1IAD QjPOXorTDiOJKoOHYaAgQ1PAIpBRhdRO5NnDCmTGeaSICzKKLcKuOiBZToBS4TWWBfD502xjCkQk0YVg 2WUsLoXO0hzv8ASwXqIGWsEyjLKuv8NEbaOZ2TgDOnY9NwbCKne9gKXgHkX7PNWCQkHFBnOk4JYGRdGk LvFWFmCZzjXK5vZOJfJJISqEoidwD9DO1THV5gmvYj QQ2YMtUfKj1iEs8VUiLtB7OuR2NmQQRgKWHRYCtmNY1DINIdWFD0RECvUkMuWEGFHyKtM80jUZ9JV7Vu z95lNbF4SQAoKzUxKTqxBR23fLwhvkKbnTWltSziLC6PBq2+DQplbmRvYmoNCnhyZWYNCjAgMzQNCjAw NBSaMTQnYHZdVnE4OsJcEa2QYXReMJQhKZGeNfZfXJ NtSTFqXKxfAJTuONE7YUEiAMSoMFAdGD8AGuFhGPQwWLq9VSUwSDDoZNSekz5IXFMrHQLeCHJ6QaTzRY UkXALuJIawDNBzEWAmPUx6WRCtAHDhFG6OBwIlPBMiMRMhZvueKVWcUZMpzt1SDSGfFNEoDXZiZNTgXJ RsELYtUVusGJOcSAJ7BhP2IVWaJOJjMB9ZKbTmRDAz SMNkTJvtVISbGMXfip6FVFVnUFAgLOV7PSTaZFZxDHAdPHimTALdLLF2RUB0GJImILUqTP6OBoEnMOGf CDU8NoCfZUJxTXOtmv1HQIJiSQFrVslcTwWeUMSlKLZnBRoyQNMgDHK6ZQP9CZGoJYNhXR6ILjZrYLHs NPC7ImAfWNXzBVVtqp2HPLXnSIVaRoY1XyGsKXBcBK HlRYxdBNPmBPSdNtu5FTJdDJZzBU7CFsPdOCJwVAX2TdmrVSDqVWBxqa1HNWPjYUEoLkY3FzMbQLUiPY TqMUyxHVTcGLQwAvT2DSAmBDCyLW4BEvGaAFBrGLS2HDFoWTDwXJNmae3SPXTlTPJwBja1PoQxZBVwIR AjJLdyZFWxYJE8PHX8CUWjYLJlDV0QLzZqWWXxHWZx MNVqMNFvJRWfch8KEAPrYASvWHH8BGIoMMSdURRfPXiyUITgNKK0AnOwGQSvZARtXE9INnKlKCCdDEK7 GbohXNUtXKVxeg2OSKPkAGZvPvZ9EKTbMOYtJWLoDWtaWECvNMP9JBP3ZBQbHUWtCO9XDkBfDKWaDJI8 SrbuQNAvTAWpvl9LEFElPUHhOeUgZNOoJBHjSXUuYC pjSVRlABZ7CGE2ZCOfHGJyWW6PPvAvZNLlNXrgSVxlXSPrSGEeiw9IeIQbpXgozb8NBNxUUh9TbDpfRB U5STufJs4pkYFdBvVsVXUHAf1NpmLcWWReMMPIHDpdCIGbIJqlXYsuFxLeQ0K4MUG4S2N5BCksPnGdAN Z1LsO9P0CuPqI0LQEgS9GcZJAaZvvpCDp0BkXqC9Jz FYQjZegiRwm7FyY+RD8lKRa+Xa6Qs4FhtbR5ktAnFLxtCEN2HV7AIRVZX7HOSv== ID Date Data Source [id number] 09/16/2021 11:09:13 PM EDT [facility] Name Value Range Interpretation Code Description Data Jennifer rce(s) Supporting Document(s) &PDF [facility] ZGJNPl3pQrRSExVg61/MEVclKXYiy7JtXZqpDHs9NWfkTZExI5MwiToxGF0NAtmBLqmSQkRWGDdwSGWb vci [file] AgICAgICAgICAgICAgICAgICAgICAgICAgICAgICAgICAgICAgICAgICAgICAgICAgICAgICAgICAgIC AgICAgICAgICAgICAgICAgICAgICAgICAgICAgICAg SSPuWUXvJO7MPDUcUDZmBVBkDZQoGEGdNZKwRBLkDIYwQWCjTMAhZJJgJLDhASQlGLSjHONmXDRiWBVt OMHkXUUwWZLqZUUnEAWoFPXaXKEhEHDsDHChEDXyKYNhXKNcDPKiIYZiFEPlLNMlDX5FCCYlANAuGINl ICAgICAgICAgICAgICAgICAgICAgICAgICAgICAgIC AgICAgICAgICAgICAgICAgICAgICAgICAgICAgICAgICAgICAgICAgICAgICAgICAgICAgICAgICAgIA 0KICAgICAgICAgICAgICAgICAgICAgICAgICAgICAgICAgICAgICAgICAgICAgICAgICAgICAgICAgIC AgICAgICAgICAgICAgICAgICAgICAgICAgICAgICAg NRGjWKOhASSdXB1YGLTuHNUkXQYhWCXxEHRzRXUbRVRnJOSoJDSrGLQkDGZmVKBkFZWcJPIpYHGcPYKe WEHgBLNfJVDjULDiCWVlUFZqYQZdVEDoOGLqPYDxMQNiUKYqNWXrMWFsKPEfOFReMFBfLU1UBWOpSNLe ICAgICAgICAgICAgICAgICAgICAgICAgICAgICAgIC AgICAgICAgICAgICAgICAgICAgICAgICAgICAgICAgICAgICAgICAgICAgICAgICAgICAgICAgICAgIC VpJY4FXXMsKDRdYZBjZNPyBURoGDIsRFFyDNTwWMLjBPTyEAFrDUThKJMrSMYuWDOpCIAtJAYaJPAmBM AgICAgICAgICAgICAgICAgICAgICAgICAgICAgICAg ZHOcBGUsSETiWQZqEG1GNROkQIVdRBGpSWXnYAZjMCObUIGgHQGsBGWqKNSqCAYxRWIfCDMnRCZbSVJe ZCYcVEVfEWQcJQXeNCYmANDwWHRwTXHdKXDqCLMzBPCzTKNcYGXyJQPbIQPwTEJoYZZkZMAgXI5RCQVz ICAgICAgICAgICAgICAgICAgICAgICAgICAgICAgIC AgICAgICAgICAgICAgICAgICAgICAgICAgICAgICAgICAgICAgICAgICAgICAgICAgICAgICAgICAgIC SlPBOaYW9MNQNaEJFuKZYzGVPmDLXuZKGgEWKaEXTwSOKvFEScYCFaMQAsTYTnDWLlRHArXMYwSUCfFB AgICAgICAgICAgICAgICAgICAgICAgICAgICAgICAg BWFpLRYuPPAnKLQuVPEbUQ7UFC30jUCja6B5IYRqBW1fruz/Le7TEDzkgjJljLUzFR2ZErNhMP4cvm4X BtYcFL9gdk8QRCkGItSnQ3D6rQMlFOCdAVJQNgXwJ95fZRnhPa41FYqfDRXsOxWqNAb1Et3RSyAfV4yv QERfNhM4FVYtDfE6YQFoMkToNHpqMT8Gm0KiaSCrJJ o+Kr2EBL3yi8ZvOFvuRtViZL9quz4YFCwQEtEkB2J9wGSwC7W9TGggNo8SVQRgDVNjHpZiUBZGXBweXZ 3RWP1xylH4HW5CsHYmDYLxQLJvoISoEHj5K74yhCEfOIlcVU8WEKF+Saman+Te1MOOSgVEJaABGmJyXcWA KEOeDnJ41hcJUtZYQfXTRkQQBeZm3TISNqM6DzomCu bHapsrDoUILnBCMHPH9SILkxceWqdLUoyTfsGG65kQuiHO5AFj9VRnXoDH9iel1EeUIuTw9SUKNqIG5Y FWPyLMNfKURpPEJ6MOByBsCvETekPLJaKYGhBQO3ZUAdFTQoHT3ANdPsRHNyRZk2MoEsZFIoAUCfwr0J ZKLtGHTsGHK3DzRnMGEyOQYhAItqRRHoEFYyFCmrVX UmINKoGK8RDqZtHKMhGKY8TRAnMYRmXZOewq1PWPNjYRZuDug3KKDdQMRmAYXlHVtxQFZaTGZ5Rto3NZ LpFIOpEW6LDbGcNWMaFUZ8XSwtGVLwYLEgyf9GSILvBYQpLss8OlCyLNVwEPWxRAwnGPUlSSG0EKOrZP NrAYFtBP9NJrVfBKGbQIrzFiVwXZThCHQfrw8XPIDf YVQjIGQ5DeDmSZXbZHIkKEwqZYRnAPI5Pce0TKKrBWRiOF2ZGtHqGLHsRSs5TIQfWEBiMJJudy3RYKUb XDUiGDFtDNKfATNfEQBnFTzeBACpUAG0FqL1CLTgQUZsSY9GVdJhFIXjMTX6BlkqENOjYIRlip4YALKx XMFiIGBrKNGfUMWgUNVvRXuxRQUxTPW6BsW5RGTlWY NfXM7ENbQrXXZeRZKiEAduTWUyCZUkzh4PUWHmVIBjDvE5WtMjXSDlFOIdWKxjDKMgZTD9RiC1UXZhRA CqPR4YTvTeDVYsFBv6MTimMAImRBCwdf3MHKVvIRZkTfp4IxIhLWLuDUSyPNvmMMGsAZX0NQC0ERAaYZ BbYI7ZJyZxVVUnQWbpXuveURCsIMZnwf4HUKSeUUDx PPU2WKHsINCoVLWvZAntALZcFVH5CVhaGREtWFZlTS3UOxYyXMZeZXxcFCkqCGIiDANfwc7QWZTjDDLx YIR1CQPqQPSrFEHwHGdkCZUbMNK1Anw7CVAkCJErIW3UJaBtVCAuRiRhDrLoGSHlTGVfmb7LIYMsFDCk QFW1McDpIVGbCWEcPAq5uwNofKFuFNo7YJ7WY3Aecg XcTkRAEl6Hf219JQXlETQqTi1BJ4ysVi7yCDBaHIPRKu3KNLe5Ojp8NPA8LdgcXzQ4BqYpEId0InD6TH B3MValAPZ4QqC+ISbvUjV1Aaw6DOS0HKxuIhEtAMcnHtx4OzAzMZMaReLsGz9jMGPKYw7+DQpzdGFydH hgSWAQRtVvRNK8BQvxJMXABj3D ID Date Data Source [id number] 08/29/2021 10:56:00 AM EDT [facility] ([facility], ) Name Value Range Interpretation Code Description Data Jennifer rce(s) Supporting Document(s) PDFReport Laboratory test result [facility] ([facility], ) FVC-Pred 3.45 L [facility] ([facility], ) FVC-%Pred-Pre 79 L [facility] ([facility]) FVC-Pre 2.76 L [facility] ([facility]) Fev1-Pred 2.83 L [facility] ([facility]) Fev1-Pre 2.24 L [facility] ([facility]) FVC-LLN 2.80 L [facility] ([facility]) Fev1-%Pred-Pre 78 L [facility] ([facility]) Fev6-Pred 3.40 L MEDENT ([facility]) Fev1-LLN 2.28 L [facility] ([facility]) Fev6-Pre 2.76 L MED[facility] ([facility]) Fev6-%Pred-Pre 81 L [facility] ([facility]) Fop6okz-Wnun 82 % MEDENT ([facility]) Fev6-LLN 2.76 L MEDENT ([facility]) Ynb1ovz-Orx 81 % MEDENT ([facility]) Cqb5inf-PFJ 72 % MED[facility] ([facility]) Npk1sxt-%Pred-Pre 98 % MED[facility] ([facility]) Abh4klm-Zbtz 98 % MEDENT ([facility]) Nhs5kyo-%Pred-Pre 101 % MED[facility] ([facility]) FEFMax-Pred 6.67 L/E/sec MED[facility] ([facility]) Xpz1zlr-Ouy 100 % MEDENT ([facility]) FEFMax-Pre 3.45 L/E/sec MEDENT ([facility], ) FEFMax-%Pred-Pre 51 L/E/sec MED[facility] ([facility]) FEFMax-LLN 5.06 L/E/sec MED[facility] ([facility]) [id number]-Piwx 3.02 L/E/sec MED[facility] ([facility]) Vto6807-Zla 2.29 L/E/sec [facility] ([facility]) Nie3754-%Pred-Pre 76 L/E/sec MED[facility] ([facility]) Xdm1981-ZFT 1.85 L/E/sec [facility] ([facility]) Pfk8lkq1-Fqy 81 % MEDENT ([facility]) ExpTime-Pre 6.47 sec MEDENT ([facility]) Rlf0frz6-Agwc 84 % MEDENT ([facility], ) Uqk9zkw2-CGE 75 % MEDENT ([facility]) Rmj3olt7-%Pred-Pre 96 % MED[facility] ([facility]) ID Date Data Source [id number] 06/16/2021 10:19:00 AM EDT [facility]) Name Value Range Interpretation Code Description Data Jennifer rce(s) Supporting Document(s) total 25(oh) vitamin D 73.5 NG/mL 30.0-100.0 Total 25(Oh) Vitamin D [facility]) ID Date Data Source [id number] 06/16/2021 10:19:00 AM EDT [facility]) Name Value Range Interpretation Code Description Data Jennifer rce(s) Supporting Document(s) cholesterol level 127 mg/dL <200 Cholesterol Level MARILEE ([facility]) triglycerides level 89 mg/dL <150 Triglycerides Le abhijit MARILEE ([facility]) Cholesterol in LDL [Mass/volume] in Serum or Plasma 52 mg/dL <1 00 LDL Cholesterol ROYAL ([facility]) HDL cholesterol 57 mg/dL >40 HDL Cholesterol ATHE ([facility]) non-HDL-C 70 mg/dL Non-hdl-c MAR[facility]E ([facility]) cholesterol risk ratio <5 Cholesterol R isk Ratio [facility]E ([facility]) ID Date Data Source [id number] 06/16/2021 10:19:00 AM EDT MAR[facility]E ([facility]) Name Value Range Interpretation Code Description Data Jennifer rce(s) Supporting Document(s) glucose, fasting 101 mg/dL 70-100 Above high normal Glucose, Fas ting MARILEE ([facility]) creatinine for GFR 0.74 mg/dL 0.55-1.30 Creatinine for GF R MAR[facility]E ([facility]) blood urea nitrogen 13 mg/dL 7-18 Blood Urea Nitro gen MAR[facility]E ([facility]) glomerular filtration rate > 60.0 >60 Glomerula r Filtration Rate MARILEE ([facility]) sodium level 145 mEq/L 136-145 Sodium Level [facility]E ([facility]) potassium serum 3.7 mEq/L 3.5-5.1 Potassium Serum ATHE ([facility]) carbon dioxide level 27 mEq/L 21-32 Carbon Dioxide Level MARILEE ([facility]) chloride level 111 mEq/L 98-107 Above high normal Chloride Level MAR[facility]E ([facility]) anion gap 7 mEq/L 8-16 Below low normal Anion Gap MAR[facility]E ( [facility]) calcium level 8.7 mg/dL 8.5-10.1 Calcium Level MARILEE ( [facility]) ALT/SGPT 35 U/L 12-78 ALT/SGPT [facility] ([facility]) AST/SGOT 20 U/L 7-37 AST/SGOT [facility] ([facility]) alkaline phosphatase 97 U/L 45-117 Alkaline Phosph atase [facility] ([facility]) bilirubin,total 0.5 mg/dL 0.2-1.0 Bilirubin,total ATHE [facility]) total protein 7.0 gm/dL 6.4-8.2 Total Protein [facility] ( [facility]) albumin 3.7 gm/dL 3.2-5.2 Albumin [facility] ([facility]) albumin/globulin ratio 1.2-2.2 Below low normal Albumin /globulin Ratio [facility] ([facility]) ID Date Data Source [id number] 06/16/2021 10:19:00 AM EDT [facility] ([facility]) Name Value Range Interpretation Code Description Data Jennifer rce(s) Supporting Document(s) white blood count 5.0 10 4.0-10.0 White Blood Count [facility] ([facility]) red blood count 4.42 10 4.00-5.40 Red Blood Count ATHE ([facility]) hemoglobin 13.0 g/dL 12.0-15.5 Hemoglobin [facility] ([facility]) hematocrit 40.4 % 36.0-47.0 Hematocrit [facility] ([facility]) mean corpuscular volume 91.4 fL 80.0-96.0 Mean Corpusc ular Volume [facility] ([facility]) mean corpuscular HGB conc 32.2 g/dL 32.0-36.5 Mean Corpu scular HGB Conc [facility] ([facility]) mean corpuscular hemoglobin 29.4 pg 27.0-33.0 Mean Cor puscular Hemoglobin [facility] ([facility]) red cell distribution width 13.7 % 11.5-14.5 Red Cell Distribution Width [facility] ([facility]) platelet count, automated 241 10 150-450 Platelet C ount, Automated [facility] ([facility]) neutrophils % 49.3 % 36.0-66.0 Neutrophils % [facility] ( [facility]) lymph % 37.4 % 24.0-44.0 Lymph % [facility] ([facility]) mono % 10.5 % 2.0-8.0 Above high normal [place] % [facility] ([facility]) eos % 2.2 % 0.0-3.0 Eos % [facility] ([facility]) immature granulocyte % 0.2 % 0-3.0 Immature Gran ulocyte % [facility] ([facility]) baso % 0.4 % 0.0-1.0 Baso % [facility] ([facility]) nucleated red blood cell % 0.0 % 0-0 Nucleated Red Blood Cell % [facility] ([facility]) lymph # 1.9 10 1.5-5.0 Lymph # [facility] ([facility]) neutrophils # 2.5 10 1.5-8.5 Neutrophils # [place] ( [facility]) mono # 0.5 10 0.0-0.8 [place] # [facility] ([facility]) eos # 0.1 10 0.0-0.5 Eos # [facility] ([facility]) baso # 0.0 10 0.0-0.2 Baso # [facility] ([facility]) ID Date Data Source [id number] 06/16/2021 10:19:00 AM EDT [facility] ([facility]) Name Value Range Interpretation Code Description Data Jennifer rce(s) Supporting Document(s) total 25(oh) vitamin D 73.5 NG/mL 30.0-100.0 Total 25(Oh) Vitamin D [facility] ([facility]) ID Date Data Source [id number] 06/16/2021 10:19:00 AM EDT [facility] ([facility]) Name Value Range Interpretation Code Description Data Jennifer rce(s) Supporting Document(s) triglycerides level 89 mg/dL <150 Triglycerides Le abhijit [facility] ([facility]) cholesterol level 127 mg/dL <200 Cholesterol Level [facility] ([facility]) HDL cholesterol 57 mg/dL >40 HDL Cholesterol ATHE NA ([facility]) Cholesterol in LDL [Mass/volume] in Serum or Plasma 52 mg/dL <1 00 LDL Cholesterol [facility] ([facility]) non-HDL-C 70 mg/dL Non-hdl-c [facility] ([facility]) cholesterol risk ratio <5 Cholesterol R isk Ratio [facility] ([facility]) ID Date Data Source [id number] 06/16/2021 10:19:00 AM EDT [facility] ([facility]) Name Value Range Interpretation Code Description Data Jennifer rce(s) Supporting Document(s) glucose, fasting 101 mg/dL 70-100 Above high normal Glucose, Fas ting [facility] ([facility]) creatinine for GFR 0.74 mg/dL 0.55-1.30 Creatinine for GF R [facility] ([facility]) blood urea nitrogen 13 mg/dL 7-18 Blood Urea Nitro gen [facility] ([facility]) sodium level 145 mEq/L 136-145 Sodium Level [facility] ([facility]) glomerular filtration rate > 60.0 >60 Glomerula r Filtration Rate [facility] ([facility]) potassium serum 3.7 mEq/L 3.5-5.1 Potassium Serum [facility] ([facility]) chloride level 111 mEq/L 98-107 Above high normal Chloride Level [facility] ([facility]) carbon dioxide level 27 mEq/L 21-32 Carbon Dioxide Level [facility] ([facility]) calcium level 8.7 mg/dL 8.5-10.1 Calcium Level [facility] ( [facility]) anion gap 7 mEq/L 8-16 Below low normal Anion Gap [facility] ( [facility]) ALT/SGPT 35 U/L 12-78 ALT/SGPT [facility] ([facility]) AST/SGOT 20 U/L 7-37 AST/SGOT [facility] ([facility]) bilirubin,total 0.5 mg/dL 0.2-1.0 Bilirubin,total ATHE ([facility]) alkaline phosphatase 97 U/L 45-117 Alkaline Phosph atase [facility] ([facility]) albumin 3.7 gm/dL 3.2-5.2 Albumin [facility] ([facility]) total protein 7.0 gm/dL 6.4-8.2 Total Protein [facility] ( [facility]) albumin/globulin ratio 1.2-2.2 Below low normal Albumin /globulin Ratio [facility] ([facility]) ID Date Data Source [id number] 06/16/2021 10:19:00 AM EDT [facility] ([facility]) Name Value Range Interpretation Code Description Data Jennifer rce(s) Supporting Document(s) white blood count 5.0 10 4.0-10.0 White Blood Count [facility] ([facility]) red blood count 4.42 10 4.00-5.40 Red Blood Count ATHE NA ([facility]) hemoglobin 13.0 g/dL 12.0-15.5 Hemoglobin [facility] ([facility]) hematocrit 40.4 % 36.0-47.0 Hematocrit [facility] ([facility]) mean corpuscular volume 91.4 fL 80.0-96.0 Mean Corpusc ular Volume [facility] ([facility]) mean corpuscular hemoglobin 29.4 pg 27.0-33.0 Mean Cor puscular Hemoglobin [facility] ([facility]) mean corpuscular HGB conc 32.2 g/dL 32.0-36.5 Mean Corpu scular HGB Conc [facility] ([facility]) platelet count, automated 241 10 150-450 Platelet C ount, Automated [facility] ([facility]) red cell distribution width 13.7 % 11.5-14.5 Red Cell Distribution Width [facility] ([facility]) neutrophils % 49.3 % 36.0-66.0 Neutrophils % [facility] ( [facility]) lymph % 37.4 % 24.0-44.0 Lymph % [facility] ([facility]) mono % 10.5 % 2.0-8.0 Above high normal [place] % [facility] ([facility]) eos % 2.2 % 0.0-3.0 Eos % [facility] ([facility]) baso % 0.4 % 0.0-1.0 Baso % [facility] ([facility]) immature granulocyte % 0.2 % 0-3.0 Immature Gran ulocyte % [facility] ([facility]) neutrophils # 2.5 10 1.5-8.5 Neutrophils # [facility] ( [facility]) nucleated red blood cell % 0.0 % 0-0 Nucleated Red Blood Cell % [facility] ([facility]) lymph # 1.9 10 1.5-5.0 Lymph # [facility] ([facility]) mono # 0.5 10 0.0-0.8 [place] # [facility] ([facility]) eos # 0.1 10 0.0-0.5 Eos # [facility] ([facility]) baso # 0.0 10 0.0-0.2 Baso # [facility] ([facility]) ID Date Data Source [id number] 06/02/2021 05:25:00 PM EDT [facility] ([facility]) Name Value Range Interpretation Code Description Data Jennifer rce(s) Supporting Document(s) istat troponin 0.00 NG/mL 0.00-0.08 Istat Troponin [facility] ([facility]) ID Date Data Source [id number] 06/02/2021 05:25:00 PM EDT [facility] ([facility]) Name Value Range Interpretation Code Description Data Jennifer rce(s) Supporting Document(s) istat troponin 0.00 NG/mL 0.00-0.08 Istat Troponin [facility] ([facility]) ID Date Data Source [id number] 06/02/2021 03:54:00 PM EDT [facility]) Name Value Range Interpretation Code Description Data Jennifer rce(s) Supporting Document(s) free T4 0.77 NG/dL 0.76-1.46 Free T4 [facility] ([facility]) ID Date Data Source [id number] 06/02/2021 03:54:00 PM EDT [facility]) Name Value Range Interpretation Code Description Data Jennifer rce(s) Supporting Document(s) thyroid stimulating hormone 1.810 uIU/mL 0.358-3.740 Thyroid Stimulating Hormone [facility] ([facility]) ID Date Data Source [id number] 06/02/2021 03:54:00 PM EDT [facility] ([facility]) Name Value Range Interpretation Code Description Data Jennifer rce(s) Supporting Document(s) lipase 73 U/L 73-393 Lipase [facility] ([facility]) ID Date Data Source [id number] 06/02/2021 03:54:00 PM EDT [facility] ([facility]) Name Value Range Interpretation Code Description Data Jennifer rce(s) Supporting Document(s) nt-pro BNP 85 pg/mL <125 Nt-pro BNP [facility] ([facility]) ID Date Data Source [id number] 06/02/2021 03:54:00 PM EDT [facility]) Name Value Range Interpretation Code Description Data Jennifer rce(s) Supporting Document(s) blood urea nitrogen 13 mg/dL 7-18 Blood Urea Nitro gen [facility] ([facility]) glucose, fasting 93 mg/dL 70-100 Glucose, Fasting AT [facility]) creatinine for GFR 0.84 mg/dL 0.55-1.30 Creatinine for GF R [facility] ([facility]) glomerular filtration rate > 60.0 >60 Glomerula r Filtration Rate [facility] ([facility]) potassium serum 4.5 mEq/L 3.5-5.1 Potassium Serum [facility] ([facility]) sodium level 140 mEq/L 136-145 Sodium Level [facility] ([facility]) carbon dioxide level 30 mEq/L 21-32 Carbon Dioxide Level [facility] ([facility]) chloride level 106 mEq/L 98-107 Chloride Level [facility] ([facility]) calcium level 8.7 mg/dL 8.5-10.1 Calcium Level [facility] ( [facility]) anion gap 4 mEq/L 8-16 Below low normal Anion Gap [facility] ( [facility]) ID Date Data Source [id number] 06/02/2021 03:54:00 PM EDT [facility]) Name Value Range Interpretation Code Description Data Jennifer rce(s) Supporting Document(s) AST/SGOT 21 U/L 7-37 AST/SGOT [place] ([facility]) ALT/SGPT 35 U/L 12-78 ALT/SGPT [facility] ([facility]) alkaline phosphatase 99 U/L 45-117 Alkaline Phosph atase [place] ([facility]) bilirubin,total 0.4 mg/dL 0.2-1.0 Bilirubin,total ATHE NA ([facility]) bilirubin,direct 0.2 mg/dL 0.0-0.2 Bilirubin,direct AT [place] ([facility]) total protein 7.1 gm/dL 6.4-8.2 Total Protein [place] ( [facility]) albumin 3.9 gm/dL 3.2-5.2 Albumin [facility] ([facility]) albumin/globulin ratio 1.2-2.2 Albumin/globu justo Ratio [facility] ([facility]) ID Date Data Source [id number] 06/02/2021 03:54:00 PM EDT [facility] ([facility]) Name Value Range Interpretation Code Description Data Jennifer rce(s) Supporting Document(s) partial thromboplastin time 25.8 seconds 24.2-38.5 Partial Thromboplastin Time [facility] ([facility]) ID Date Data Source [id number] 06/02/2021 03:54:00 PM EDT [facility] ([facility]) Name Value Range Interpretation Code Description Data Jennifer rce(s) Supporting Document(s) prothrombin time 13.0 seconds 12.5-14.3 Prothrombin Time [facility] ([facility]) INR Inr [facility] ([facility]) ID Date Data Source [id number] 06/02/2021 03:54:00 PM EDT [facility] ([facility]) Name Value Range Interpretation Code Description Data Jennifer rce(s) Supporting Document(s) white blood count 6.4 10 4.0-10.0 White Blood Count [facility] ([facility]) red blood count 4.69 10 4.00-5.40 Red Blood Count ATHE NA ([facility]) hematocrit 43.1 % 36.0-47.0 Hematocrit [place] ([facility]) hemoglobin 13.9 g/dL 12.0-15.5 Hemoglobin [facility] ([facility]) mean corpuscular hemoglobin 29.6 pg 27.0-33.0 Mean Cor puscular Hemoglobin [facility] ([facility]) mean corpuscular volume 91.9 fL 80.0-96.0 Mean Corpusc ular Volume [facility] ([facility]) mean corpuscular HGB conc 32.3 g/dL 32.0-36.5 Mean Corpu scular HGB Conc [facility] ([facility]) red cell distribution width 13.4 % 11.5-14.5 Red Cell Distribution Width [facility] ([facility]) platelet count, automated 224 10 150-450 Platelet C ount, Automated [place] ([facility]) neutrophils % 60.1 % 36.0-66.0 Neutrophils % [place] ( [facility]) mono % 9.7 % 2.0-8.0 Above high normal [place] % [facility] ([facility]) lymph % 27.8 % 24.0-44.0 Lymph % [facility] ([facility]) baso % 0.5 % 0.0-1.0 Baso % [place] ([facility]) eos % 1.6 % 0.0-3.0 Eos % [place] ([facility]) nucleated red blood cell % 0.0 % 0-0 Nucleated Red Blood Cell % [place] ([facility]) immature granulocyte % 0.3 % 0-3.0 Immature Gran ulocyte % [facility] ([facility]) neutrophils # 3.9 10 1.5-8.5 Neutrophils # [place] ( [facility]) lymph # 1.8 10 1.5-5.0 Lymph # [place] ([facility]) mono # 0.6 10 0.0-0.8 [place] # [facility] ([facility]) baso # 0.0 10 0.0-0.2 Baso # [facility] ([facility]) eos # 0.1 10 0.0-0.5 Eos # [facility] ([facility]) ID Date Data Source [id number] 06/02/2021 03:54:00 PM EDT [place] ([facility]) Name Value Range Interpretation Code Description Data Jennifer rce(s) Supporting Document(s) free T4 0.77 NG/dL 0.76-1.46 Free T4 [facility] ([facility]) ID Date Data Source [id number] 06/02/2021 03:54:00 PM EDT [facility] ([facility]) Name Value Range Interpretation Code Description Data Jennifer rce(s) Supporting Document(s) thyroid stimulating hormone 1.810 uIU/mL 0.358-3.740 Thyroid Stimulating Hormone [facility] ([facility]) ID Date Data Source [id number] 06/02/2021 03:54:00 PM EDT [facility] ([facility]) Name Value Range Interpretation Code Description Data Jennifer rce(s) Supporting Document(s) lipase 73 U/L 73-393 Lipase [facility] ([facility]) ID Date Data Source [id number] 06/02/2021 03:54:00 PM EDT [facility] ([facility]) Name Value Range Interpretation Code Description Data Jennifer rce(s) Supporting Document(s) nt-pro BNP 85 pg/mL <125 Nt-pro BNP [facility]) ID Date Data Source [id number] 06/02/2021 03:54:00 PM EDT [facility]) Name Value Range Interpretation Code Description Data Jennifer rce(s) Supporting Document(s) glucose, fasting 93 mg/dL 70-100 Glucose, Fasting AT [place] ([facility]) blood urea nitrogen 13 mg/dL 7-18 Blood Urea Nitro gen [place] ([facility]) creatinine for GFR 0.84 mg/dL 0.55-1.30 Creatinine for GF R [facility] ([facility]) glomerular filtration rate > 60.0 >60 Glomerula r Filtration Rate [place] ([facility]) sodium level 140 mEq/L 136-145 Sodium Level [facility] ([facility]) chloride level 106 mEq/L 98-107 Chloride Level [facility] ([facility]) potassium serum 4.5 mEq/L 3.5-5.1 Potassium Serum [facility] ([facility]) anion gap 4 mEq/L 8-16 Below low normal Anion Gap [place] ( [facility]) carbon dioxide level 30 mEq/L 21-32 Carbon Dioxide Level [facility] ([facility]) calcium level 8.7 mg/dL 8.5-10.1 Calcium Level [facility] ( [facility]) ID Date Data Source [id number] 06/02/2021 03:54:00 PM EDT [facility] ([facility]) Name Value Range Interpretation Code Description Data Jennifer rce(s) Supporting Document(s) AST/SGOT 21 U/L 7-37 AST/SGOT [facility] ([facility]) ALT/SGPT 35 U/L 12-78 ALT/SGPT [facility] ([facility]) bilirubin,total 0.4 mg/dL 0.2-1.0 Bilirubin,total ATHE ([facility]) alkaline phosphatase 99 U/L 45-117 Alkaline Phosph atase [place] ([facility]) bilirubin,direct 0.2 mg/dL 0.0-0.2 Bilirubin,direct AT [facility] ([facility]) total protein 7.1 gm/dL 6.4-8.2 Total Protein [place] ( [facility]) albumin 3.9 gm/dL 3.2-5.2 Albumin [facility] ([facility]) albumin/globulin ratio 1.2-2.2 Albumin/globu justo Ratio [facility] ([facility]) ID Date Data Source [id number] 06/02/2021 03:54:00 PM EDT [facility] ([facility]) Name Value Range Interpretation Code Description Data Jennifer rce(s) Supporting Document(s) partial thromboplastin time 25.8 seconds 24.2-38.5 Partial Thromboplastin Time [facility] ([facility]) ID Date Data Source [id number] 06/02/2021 03:54:00 PM EDT [facility] ([facility]) Name Value Range Interpretation Code Description Data Jennifer rce(s) Supporting Document(s) prothrombin time 13.0 seconds 12.5-14.3 Prothrombin Time [facility] ([facility]) INR Inr [facility] ([facility]) ID Date Data Source [id number] 06/02/2021 03:54:00 PM EDT [facility] ([facility]) Name Value Range Interpretation Code Description Data Jennifer rce(s) Supporting Document(s) white blood count 6.4 10 4.0-10.0 White Blood Count [place] ([facility]) hemoglobin 13.9 g/dL 12.0-15.5 Hemoglobin [facility] ([facility]) red blood count 4.69 10 4.00-5.40 Red Blood Count [facility] ([facility]) hematocrit 43.1 % 36.0-47.0 Hematocrit [place] ([facility]) mean corpuscular volume 91.9 fL 80.0-96.0 Mean Corpusc ular Volume [facility] ([facility]) mean corpuscular hemoglobin 29.6 pg 27.0-33.0 Mean Cor puscular Hemoglobin [facility] ([facility]) mean corpuscular HGB conc 32.3 g/dL 32.0-36.5 Mean Corpu scular HGB Conc [facility] ([facility]) red cell distribution width 13.4 % 11.5-14.5 Red Cell Distribution Width [facility] ([facility]) platelet count, automated 224 10 150-450 Platelet C ount, Automated [place] ([facility]) lymph % 27.8 % 24.0-44.0 Lymph % [place] ([facility]) neutrophils % 60.1 % 36.0-66.0 Neutrophils % [place] ( [facility]) mono % 9.7 % 2.0-8.0 Above high normal [place] % [place] ([facility]) eos % 1.6 % 0.0-3.0 Eos % [facility] ([facility]) baso % 0.5 % 0.0-1.0 Baso % [facility] ([facility]) immature granulocyte % 0.3 % 0-3.0 Immature Gran ulocyte % [facility] ([facility]) nucleated red blood cell % 0.0 % 0-0 Nucleated Red Blood Cell % [facility] ([facility]) neutrophils # 3.9 10 1.5-8.5 Neutrophils # [facility] ( [facility]) lymph # 1.8 10 1.5-5.0 Lymph # [place] ([facility]) mono # 0.6 10 0.0-0.8 [place] # [place] ([facility]) eos # 0.1 10 0.0-0.5 Eos # [facility] ([facility]) baso # 0.0 10 0.0-0.2 Baso # [place] ([facility]) ID Date Data Source [id number] 05/25/2021 12:17:00 PM EDT [facility] ([facility], ) Name Value Range Interpretation Code Description Data Jennifer rce(s) Supporting Document(s) FVC-Pre 2.15 L [facility] ([facility], ) FVC-Pred 3.47 L [facility] ([facility], ) PDFReport Laboratory test result [facility] ([facility], ) FVC-%Pred-Pre 62 L [facility] ([facility], ) FVC-LLN 2.82 L [facility] ([facility], ) Fev1-Pred 2.85 L [facility] ([facility], ) Fev1-Pre 1.77 L [facility] ([facility], ) Fev1-%Pred-Pre 62 L [facility] ([facility], ) Fev6-Pred 3.41 L [facility] ([facility], ) Fev1-LLN 2.30 L [facility] ([facility]) Fev6-LLN 2.77 L [facility] ([facility], ) Fev6-Pre 2.15 L [facility] ([facility], ) Fev6-%Pred-Pre 63 L [facility] ([facility], ) Tjk2kln-%Pred-Pre 99 % [facility] ([facility]) Qjn7pax-Gazt 83 % [facility] ([facility]) Asm3maz-Iep 82 % [facility] ([facility]) Xbc1apw-ENI 73 % [facility] ([facility]) Woa5qch-Uwmq 98 % [facility] ([facility], ) Ydu5gqw-%Pred-Pre 101 % [facility] ([facility]) FEFMax-Pred 6.68 L/E/sec [facility] ([facility], ) Fzd1zzj-Fiy 100 % [facility] ([facility]) FEFMax-Pre 3.32 L/E/sec [facility] ([facility]) FEFMax-%Pred-Pre 49 L/E/sec [facility] ([facility]) FEFMax-LLN 5.07 L/E/sec [facility] ([facility]) [id number] 1.96 L/E/sec [facility] ([facility], ) [id number]-Nhqy 3.05 L/E/sec [facility] ([facility]) [id number] 1.89 L/E/sec [facility] ([facility]) ExpTime-Pre 6.28 sec [facility] ([facility]) Xud4203-%Pred-Pre 64 L/E/sec [facility] ([facility]) Own3xwj3-Kzod 84 % [facility] ([facility], ) Cyl1ufq7-Nev 82 % [facility] ([facility]) Fss2vfn9-%Pred-Pre 97 % [facility] ([facility]) Zjv2mtl9-UBF 75 % [facility] ([facility]) ID Date Data Source [id number] 05/21/2021 02:09:00 PM EDT [facility]) Name Value Range Interpretation Code Description Data Jennifer rce(s) Supporting Document(s) glucose, fasting 99 mg/dL 70-100 Glucose, Fasting AT [facility]) blood urea nitrogen 9 mg/dL 7-18 Blood Urea Nitro gen [facility]) creatinine for GFR 0.76 mg/dL 0.55-1.30 Creatinine for GF R [facility]) sodium level 140 mEq/L 136-145 Sodium Level [facility] ([facility]) glomerular filtration rate > 60.0 >60 Glomerula r Filtration Rate [facility] ([facility]) potassium serum 4.1 mEq/L 3.5-5.1 Potassium Serum [facility]) chloride level 108 mEq/L 98-107 Above high normal Chloride Level [facility] ([facility]) carbon dioxide level 26 mEq/L 21-32 Carbon Dioxide Level [facility]) anion gap 6 mEq/L 8-16 Below low normal Anion Gap [facility]) calcium level 9.1 mg/dL 8.5-10.1 Calcium Level [facility]) ID Date Data Source [id number] 05/21/2021 02:09:00 PM EDT [facility]) Name Value Range Interpretation Code Description Data Jennifer rce(s) Supporting Document(s) CPK creatine phosphokinase 76 U/L 26-192 CPK Creat ine Phosphokinase [facility]) CK-mb value mass < 1.0 <3.6 CK-mb Value Mass AT [place] ([facility]) mb/CK relative index < or =4 mb/CK Relative Index [place] ([facility]) troponin I < 0.02 < 0.10 Troponin I [facility] ([facility]) ID Date Data Source [id number] 05/21/2021 02:09:00 PM EDT [facility] ([facility]) Name Value Range Interpretation Code Description Data Jennifer rce(s) Supporting Document(s) white blood count 5.8 10 4.0-10.0 White Blood Count [place] ([facility]) hemoglobin 14.0 g/dL 12.0-15.5 Hemoglobin [facility] ([facility]) red blood count 4.76 10 4.00-5.40 Red Blood Count [facility] ([facility]) hematocrit 42.5 % 36.0-47.0 Hematocrit [facility] ([facility]) mean corpuscular volume 89.3 fL 80.0-96.0 Mean Corpusc ular Volume [place] ([facility]) mean corpuscular hemoglobin 29.4 pg 27.0-33.0 Mean Cor puscular Hemoglobin [place] ([facility]) mean corpuscular HGB conc 32.9 g/dL 32.0-36.5 Mean Corpu scular HGB Conc [place] ([facility]) red cell distribution width 13.3 % 11.5-14.5 Red Cell Distribution Width [place] ([facility]) platelet count, automated 239 10 150-450 Platelet C ount, Automated [place] ([facility]) lymph % 41.1 % 24.0-44.0 Lymph % [place] ([facility]) neutrophils % 46.6 % 36.0-66.0 Neutrophils % [place] ( [facility]) eos % 1.5 % 0.0-3.0 Eos % [place] ([facility]) mono % 10.3 % 2.0-8.0 Above high normal [place] % [place] ([facility]) baso % 0.3 % 0.0-1.0 Baso % [place] ([facility]) immature granulocyte % 0.2 % 0-3.0 Immature Gran ulocyte % [place] ([facility]) nucleated red blood cell % 0.0 % 0-0 Nucleated Red Blood Cell % [place] ([facility]) neutrophils # 2.7 10 1.5-8.5 Neutrophils # [place] ( [facility]) lymph # 2.4 10 1.5-5.0 Lymph # [place] ([facility]) eos # 0.1 10 0.0-0.5 Eos # [place] ([facility]) mono # 0.6 10 0.0-0.8 [place] # [place] ([facility]) baso # 0.0 10 0.0-0.2 Baso # [place] ([facility]) ID Date Data Source [id number] 05/21/2021 02:09:00 PM EDT [place] ([facility]) Name Value Range Interpretation Code Description Data Jennifer rce(s) Supporting Document(s) glucose, fasting 99 mg/dL 70-100 Glucose, Fasting AT [facility]) blood urea nitrogen 9 mg/dL 7-18 Blood Urea Nitro gen [place] ([facility]) creatinine for GFR 0.76 mg/dL 0.55-1.30 Creatinine for GF R [place] ([facility]) glomerular filtration rate > 60.0 >60 Glomerula r Filtration Rate [place] ([facility]) potassium serum 4.1 mEq/L 3.5-5.1 Potassium Serum ATHE NA ([facility]) sodium level 140 mEq/L 136-145 Sodium Level [place] (No [facility]) carbon dioxide level 26 mEq/L 21-32 Carbon Dioxide Level [place] ([facility]) chloride level 108 mEq/L 98-107 Above high normal Chloride Level [place] ([facility]) anion gap 6 mEq/L 8-16 Below low normal Anion Gap [place] ( [facility]) calcium level 9.1 mg/dL 8.5-10.1 Calcium Level [place] ( [facility]) ID Date Data Source [id number] 05/21/2021 02:09:00 PM EDT [place] ([facility]) Name Value Range Interpretation Code Description Data Jennifer rce(s) Supporting Document(s) CPK creatine phosphokinase 76 U/L 26-192 CPK Creat ine Phosphokinase [place] ([facility]) CK-mb value mass < 1.0 <3.6 CK-mb Value Mass AT [place] ([facility]) mb/CK relative index < or =4 mb/CK Relative Index [place] ([facility]) troponin I < 0.02 < 0.10 Troponin I [place] ([facility]) ID Date Data Source [id number] 05/21/2021 02:09:00 PM EDT [place] ([facility]) Name Value Range Interpretation Code Description Data Jennifer rce(s) Supporting Document(s) white blood count 5.8 10 4.0-10.0 White Blood Count [place] ([facility]) red blood count 4.76 10 4.00-5.40 Red Blood Count [facility] ([facility]) hemoglobin 14.0 g/dL 12.0-15.5 Hemoglobin [place] ([facility]) hematocrit 42.5 % 36.0-47.0 Hematocrit [place] ([facility]) mean corpuscular volume 89.3 fL 80.0-96.0 Mean Corpusc ular Volume [place] ([facility]) mean corpuscular hemoglobin 29.4 pg 27.0-33.0 Mean Cor puscular Hemoglobin [place] ([facility]) mean corpuscular HGB conc 32.9 g/dL 32.0-36.5 Mean Corpu scular HGB Conc [place] ([facility]) red cell distribution width 13.3 % 11.5-14.5 Red Cell Distribution Width [place] ([facility]) platelet count, automated 239 10 150-450 Platelet C ount, Automated [place] ([facility]) neutrophils % 46.6 % 36.0-66.0 Neutrophils % [place] ( [facility]) lymph % 41.1 % 24.0-44.0 Lymph % [place] ([facility]) mono % 10.3 % 2.0-8.0 Above high normal [place] % [place] ([facility]) eos % 1.5 % 0.0-3.0 Eos % [place] ([facility]) baso % 0.3 % 0.0-1.0 Baso % [place] ([facility]) immature granulocyte % 0.2 % 0-3.0 Immature Gran ulocyte % [place] ([facility]) neutrophils # 2.7 10 1.5-8.5 Neutrophils # [place] ( [facility]) nucleated red blood cell % 0.0 % 0-0 Nucleated Red Blood Cell % [place] ([facility]) lymph # 2.4 10 1.5-5.0 Lymph # [place] ([facility]) mono # 0.6 10 0.0-0.8 [place] # [place] ([facility]) eos # 0.1 10 0.0-0.5 Eos # [place] ([facility]) baso # 0.0 10 0.0-0.2 Baso # [place] ([facility]) ID Date Data Source [id number] 05/21/2021 02:03:00 PM EDT [place] ([facility]) Name Value Range Interpretation Code Description Data Jennifer rce(s) Supporting Document(s) bedside glucose 104 mg/dL 70-105 Bedside Glucose [facility] NA ([facility]) ID Date Data Source [id number] 05/21/2021 02:03:00 PM EDT [place] ([facility]) Name Value Range Interpretation Code Description Data Jennifer rce(s) Supporting Document(s) bedside glucose 104 mg/dL 70-105 Bedside Glucose AT[facility] NA ([facility]) ID Date Data Source [id number] 05/04/2021 06:50:00 PM EDT [place] ([facility]) Name Value Range Interpretation Code Description Data Jennifer rce(s) Supporting Document(s) istat HCT 40.0 % 38.0-51.0 Istat HCT [place] ([facility]) istat glucose 98 mg/dL 70-105 Istat Glucose [place] ( [facility]) istat sodium 140 mEq/L 136-145 Istat Sodium [place] (No [facility]) istat Ca++ 4.7 mg/dL 4.5-5.3 Istat Ca++ [place] ([facility]) istat potassium 4.5 mEq/L 3.5-5.1 Istat Potassium [facility] NA ([facility]) istat CO2 26.0 mm/L 23.0-27.0 Istat CO2 [place] ([facility]) istat chloride 105 mEq/L 98-109 Istat Chloride [place] ([facility]) istat BUN 18 mg/dL 8-26 Istat BUN [place] ([facility]) istat creatinine 0.8 mg/dL 0.6-1.3 Istat Creatinine AT [facility] ([facility]) ID Date Data Source [id number] 05/04/2021 06:50:00 PM EDT [place] ([facility]) Name Value Range Interpretation Code Description Data Jennifer rce(s) Supporting Document(s) istat HCT 40.0 % 38.0-51.0 Istat HCT [place] ([facility]) istat glucose 98 mg/dL 70-105 Istat Glucose [place] ( [facility]) istat potassium 4.5 mEq/L 3.5-5.1 Istat Potassium [facility] NA ([facility]) istat sodium 140 mEq/L 136-145 Istat Sodium [place] ([facility]) istat chloride 105 mEq/L 98-109 Istat Chloride [place] ([facility]) istat Ca++ 4.7 mg/dL 4.5-5.3 Istat Ca++ [place] ([facility]) istat CO2 26.0 mm/L 23.0-27.0 Istat CO2 [place] ([facility]) istat creatinine 0.8 mg/dL 0.6-1.3 Istat Creatinine AT [facility] ([facility]) istat BUN 18 mg/dL 8-26 Istat BUN [place] ([facility]) ID Date Data Source [id number] 05/04/2021 06:49:00 PM EDT [place] ([facility]) Name Value Range Interpretation Code Description Data Jennifer rce(s) Supporting Document(s) lipase 87 U/L 73-393 Lipase [place] ([facility]) ID Date Data Source [id number] 05/04/2021 06:49:00 PM EDT [place] ([facility]) Name Value Range Interpretation Code Description Data Jennifer rce(s) Supporting Document(s) nt-pro BNP 107 pg/mL <125 Nt-pro BNP [place] ([facility]) ID Date Data Source [id number] 05/04/2021 06:49:00 PM EDT [place] ([facility]) Name Value Range Interpretation Code Description Data Jennifer rce(s) Supporting Document(s) AST/SGOT 12 U/L 7-37 AST/SGOT [place] ([facility]) ALT/SGPT 22 U/L 12-78 ALT/SGPT [place] ([facility]) alkaline phosphatase 100 U/L 45-117 Alkaline Phosph atase [place] ([facility]) bilirubin,total 0.4 mg/dL 0.2-1.0 Bilirubin,total [facility] NA ([facility]) albumin 4.0 gm/dL 3.2-5.2 Albumin [place] ([facility]) total protein 7.2 gm/dL 6.4-8.2 Total Protein [place] ( [facility]) bilirubin,direct 0.1 mg/dL 0.0-0.2 Bilirubin,direct AT [facility] ([facility]) albumin/globulin ratio 1.2-2.2 Albumin/globu justo Ratio [place] ([facility]) ID Date Data Source [id number] 05/04/2021 06:49:00 PM EDT [place] ([facility]) Name Value Range Interpretation Code Description Data Jennifer rce(s) Supporting Document(s) white blood count 6.1 10 4.0-10.0 White Blood Count [place] ([facility]) hemoglobin 14.1 g/dL 12.0-15.5 Hemoglobin [place] ([facility]) red blood count 4.79 10 4.00-5.40 Red Blood Count [facility] ([facility]) hematocrit 45.0 % 36.0-47.0 Hematocrit [place] ([facility]) mean corpuscular volume 93.9 fL 80.0-96.0 Mean Corpusc ular Volume [place] ([facility]) mean corpuscular HGB conc 31.3 g/dL 32.0-36.5 Below low fely l Mean Corpuscular HGB Conc [place] ([facility]) mean corpuscular hemoglobin 29.4 pg 27.0-33.0 Mean Cor puscular Hemoglobin [place] ([facility]) red cell distribution width 12.9 % 11.5-14.5 Red Cell Distribution Width [place] ([facility]) platelet count, automated 216 10 150-450 Platelet C ount, Automated [place] ([facility]) neutrophils % 47.2 % 36.0-66.0 Neutrophils % [place] ( [facility]) lymph % 41.8 % 24.0-44.0 Lymph % [place] ([facility]) eos % 1.7 % 0.0-3.0 Eos % [place] ([facility]) mono % 8.6 % 2.0-8.0 Above high normal [place] % [place] ([facility]) baso % 0.5 % 0.0-1.0 Baso % [place] ([facility]) nucleated red blood cell % 0.0 % 0-0 Nucleated Red Blood Cell % [place] ([facility]) immature granulocyte % 0.2 % 0-3.0 Immature Gran ulocyte % [place] ([facility]) lymph # 2.5 10 1.5-5.0 Lymph # [place] ([facility]) neutrophils # 2.9 10 1.5-8.5 Neutrophils # [place] ( [facility]) mono # 0.5 10 0.0-0.8 [place] # [place] ([facility]) baso # 0.0 10 0.0-0.2 Baso # [place] ([facility]) eos # 0.1 10 0.0-0.5 Eos # [place] ([facility]) ID Date Data Source [id number] 05/04/2021 06:49:00 PM EDT [place] ([facility]) Name Value Range Interpretation Code Description Data Jennifer rce(s) Supporting Document(s) lipase 87 U/L 73-393 Lipase [place] ([facility]) ID Date Data Source [id number] 05/04/2021 06:49:00 PM EDT [place] ([facility]) Name Value Range Interpretation Code Description Data Jennifer rce(s) Supporting Document(s) nt-pro BNP 107 pg/mL <125 Nt-pro BNP [place] ([facility]) ID Date Data Source [id number] 05/04/2021 06:49:00 PM EDT [place] ([facility]) Name Value Range Interpretation Code Description Data Jennifer rce(s) Supporting Document(s) AST/SGOT 12 U/L 7-37 AST/SGOT [place] ([facility]) alkaline phosphatase 100 U/L 45-117 Alkaline Phosph atase [place] ([facility]) ALT/SGPT 22 U/L 12-78 ALT/SGPT [place] ([facility]) bilirubin,total 0.4 mg/dL 0.2-1.0 Bilirubin,total [facility] NA ([facility]) bilirubin,direct 0.1 mg/dL 0.0-0.2 Bilirubin,direct AT [place] ([facility]) total protein 7.2 gm/dL 6.4-8.2 Total Protein [place] ( [facility]) albumin 4.0 gm/dL 3.2-5.2 Albumin [place] ([facility]) albumin/globulin ratio 1.2-2.2 Albumin/globu justo Ratio [place] ([facility]) ID Date Data Source [id number] 05/04/2021 06:49:00 PM EDT [place] ([facility]) Name Value Range Interpretation Code Description Data Jennifer rce(s) Supporting Document(s) white blood count 6.1 10 4.0-10.0 White Blood Count [place] ([facility]) red blood count 4.79 10 4.00-5.40 Red Blood Count [facility] ([facility]) hemoglobin 14.1 g/dL 12.0-15.5 Hemoglobin [place] ([facility]) hematocrit 45.0 % 36.0-47.0 Hematocrit [place] ([facility]) mean corpuscular hemoglobin 29.4 pg 27.0-33.0 Mean Cor puscular Hemoglobin [place] ([facility]) mean corpuscular volume 93.9 fL 80.0-96.0 Mean Corpusc ular Volume [place] ([facility]) mean corpuscular HGB conc 31.3 g/dL 32.0-36.5 Below low fely l Mean Corpuscular HGB Conc [place] ([facility]) red cell distribution width 12.9 % 11.5-14.5 Red Cell Distribution Width [place] ([facility]) neutrophils % 47.2 % 36.0-66.0 Neutrophils % [place] ( [facility]) platelet count, automated 216 10 150-450 Platelet C ount, Automated [place] ([facility]) eos % 1.7 % 0.0-3.0 Eos % [place] ([facility]) lymph % 41.8 % 24.0-44.0 Lymph % [place] ([facility]) mono % 8.6 % 2.0-8.0 Above high normal [place] % [place] ([facility]) nucleated red blood cell % 0.0 % 0-0 Nucleated Red Blood Cell % [place] ([facility]) neutrophils # 2.9 10 1.5-8.5 Neutrophils # [place] ( [facility]) baso % 0.5 % 0.0-1.0 Baso % [place] ([facility]) immature granulocyte % 0.2 % 0-3.0 Immature Gran ulocyte % [place] ([facility]) mono # 0.5 10 0.0-0.8 [place] # [place] ([facility]) eos # 0.1 10 0.0-0.5 Eos # [place] ([facility]) lymph # 2.5 10 1.5-5.0 Lymph # [place] ([facility]) baso # 0.0 10 0.0-0.2 Baso # [place] ([facility]) ID Date Data Source [id number] 05/04/2021 06:36:00 PM EDT [place] ([facility]) Name Value Range Interpretation Code Description Data Jennifer rce(s) Supporting Document(s) istat troponin 0.00 NG/mL 0.00-0.08 Istat Troponin [place] ([facility]) ID Date Data Source [id number] 05/04/2021 06:36:00 PM EDT [place] ([facility]) Name Value Range Interpretation Code Description Data Jennifer rce(s) Supporting Document(s) istat troponin 0.00 NG/mL 0.00-0.08 Istat Troponin [place] ([facility]) ID Date Data Source [id number] 03/26/2021 09:35:00 AM EDT [facility] Name Value Range Interpretation Code Description Data Jennifer rce(s) Supporting Document(s) SARS-CoV-2 (COVID-19) RNA [Presence] in Respiratory specimen by [facility] with probe detection Not Detected [facility] This lab was ordered by [facility] and reported by [facility]. ID Date Data Source [id number] 02/15/2021 02:12:51 PM EDT [facility], PCName: Scott CarvajalDOB: 1980Provider: Jovanna Vasquez: 02/14/2021 Reason For VisitScott [...] document was dictated and electronically signed using [employer] software. A reasonable attempt at proof reading has been made to minimize errors. Please call with any questions. Signatures Electronically signed by : Marielena Vasquez NP; Feb 14 2021 2:27PM EST (Author) Electronically signed by : Shaq Lopez M.D.; Feb 15 2021 2:12PM EST Name Value Range Interpretation Code Description Data Jennifer rce(s) Supporting Document(s) ID Date Data Source [id number] 02/08/2021 10:15:00 AM EDT [facility]) Name Value Range Interpretation Code Description Data Jennifer rce(s) Supporting Document(s) total 25(oh) vitamin D 21.0 NG/mL 30.0-100.0 Below low normal T otal 25(Oh) Vitamin D [facility]) ID Date Data Source [id number] 02/08/2021 10:15:00 AM EDT [facility]) Name Value Range Interpretation Code Description Data Jennifer rce(s) Supporting Document(s) thyroid stimulating hormone 3.100 uIU/mL 0.358-3.740 Thyroid Stimulating Hormone [facility]) ID Date Data Source [id number] 02/08/2021 10:15:00 AM EDT [facility]) Name Value Range Interpretation Code Description Data Jennifer rce(s) Supporting Document(s) cholesterol level 264 mg/dL <200 Above high normal Cholesterol Level [facility]) triglycerides level 114 mg/dL <150 Triglycerides Le abhijit [place] ([facility]) Cholesterol in LDL [Mass/volume] in Serum or Plasma 187 mg/dL <100 Above high normal LDL Cholesterol [place] ([facility]) HDL cholesterol 54 mg/dL >40 HDL Cholesterol AT[facility] NA ([facility]) cholesterol risk ratio <5 Cholesterol R isk Ratio [place] ([facility]) non-HDL-C 210 mg/dL Non-hdl-c [place] ([facility]) ID Date Data Source [id number] 02/08/2021 10:15:00 AM EDT [place] ([facility]) Name Value Range Interpretation Code Description Data Jennifer rce(s) Supporting Document(s) glucose, fasting 85 mg/dL 70-100 Glucose, Fasting AT [facility]) blood urea nitrogen 13 mg/dL 7-18 Blood Urea Nitro gen [place] ([facility]) creatinine for GFR 0.61 mg/dL 0.55-1.30 Creatinine for GF R [place] ([facility]) sodium level 140 mEq/L 136-145 Sodium Level [place] (No [facility]) potassium serum 4.0 mEq/L 3.5-5.1 Potassium Serum [facility] ([facility]) glomerular filtration rate > 60.0 >60 Glomerula r Filtration Rate [place] ([facility]) carbon dioxide level 29 mEq/L 21-32 Carbon Dioxide Level [place] ([facility]) chloride level 106 mEq/L 98-107 Chloride Level [place] ([facility]) calcium level 9.4 mg/dL 8.5-10.1 Calcium Level [place] ( [facility]) anion gap 5 mEq/L 8-16 Below low normal Anion Gap [place] ( [facility]) AST/SGOT 11 U/L 7-37 AST/SGOT [place] ([facility]) alkaline phosphatase 122 U/L 45-117 Above high normal Alkaline Phosphatase [place] ([facility]) ALT/SGPT 16 U/L 12-78 ALT/SGPT [place] ([facility]) bilirubin,total 0.5 mg/dL 0.2-1.0 Bilirubin,total AT[facility] NA ([facility]) total protein 7.2 gm/dL 6.4-8.2 Total Protein [place] ( [facility]) albumin 3.7 gm/dL 3.2-5.2 Albumin [place] ([facility]) albumin/globulin ratio 1.2-2.2 Below low normal Albumin /globulin Ratio [place] ([facility]) ID Date Data Source [id number] 02/08/2021 10:15:00 AM EDT [place] ([facility]) Name Value Range Interpretation Code Description Data Jennifer rce(s) Supporting Document(s) total 25(oh) vitamin D 21.0 NG/mL 30.0-100.0 Below low normal T otal 25(Oh) Vitamin D [place] ([facility]) ID Date Data Source [id number] 02/08/2021 10:15:00 AM EDT [place] ([facility]) Name Value Range Interpretation Code Description Data Jennifer rce(s) Supporting Document(s) thyroid stimulating hormone 3.100 uIU/mL 0.358-3.740 Thyroid Stimulating Hormone [place] ([facility]) ID Date Data Source [id number] 02/08/2021 10:15:00 AM EDT [place] ([facility]) Name Value Range Interpretation Code Description Data Jennifer rce(s) Supporting Document(s) HDL cholesterol 54 mg/dL >40 HDL Cholesterol AT[facility] NA ([facility]) cholesterol level 264 mg/dL <200 Above high normal Cholesterol Level [place] ([facility]) triglycerides level 114 mg/dL <150 Triglycerides Le abhijit [place] ([facility]) cholesterol risk ratio <5 Cholesterol R isk Ratio [place] ([facility]) Cholesterol in LDL [Mass/volume] in Serum or Plasma 187 mg/dL <100 Above high normal LDL Cholesterol [place] ([facility]) non-HDL-C 210 mg/dL Non-hdl-c [place] ([facility]) ID Date Data Source [id number] 02/08/2021 10:15:00 AM EDT [place] ([facility]) Name Value Range Interpretation Code Description Data Jennifer rce(s) Supporting Document(s) glucose, fasting 85 mg/dL 70-100 Glucose, Fasting AT [place] ([facility]) glomerular filtration rate > 60.0 >60 Glomerula r Filtration Rate [place] ([facility]) creatinine for GFR 0.61 mg/dL 0.55-1.30 Creatinine for GF R [place] ([facility]) blood urea nitrogen 13 mg/dL 7-18 Blood Urea Nitro gen [place] ([facility]) sodium level 140 mEq/L 136-145 Sodium Level [place] ([facility]) chloride level 106 mEq/L 98-107 Chloride Level [place] ([facility]) carbon dioxide level 29 mEq/L 21-32 Carbon Dioxide Level [place] ([facility]) potassium serum 4.0 mEq/L 3.5-5.1 Potassium Serum AT[facility] NA ([facility]) anion gap 5 mEq/L 8-16 Below low normal Anion Gap [place] ( [facility]) AST/SGOT 11 U/L 7-37 AST/SGOT [place] ([facility]) calcium level 9.4 mg/dL 8.5-10.1 Calcium Level [place] ( [facility]) ALT/SGPT 16 U/L 12-78 ALT/SGPT [place] ([facility]) total protein 7.2 gm/dL 6.4-8.2 Total Protein [place] ( [facility]) alkaline phosphatase 122 U/L 45-117 Above high normal Alkaline Phosphatase [place] ([facility]) bilirubin,total 0.5 mg/dL 0.2-1.0 Bilirubin,total AT[facility] NA ([facility]) albumin/globulin ratio 1.2-2.2 Below low normal Albumin /globulin Ratio [place] ([facility]) albumin 3.7 gm/dL 3.2-5.2 Albumin [place] ([facility]) ID Date Data Source [id number] 02/08/2021 10:15:00 AM EDT [place] ([facility]) Name Value Range Interpretation Code Description Data Jennifer rce(s) Supporting Document(s) total 25(oh) vitamin D 21.0 NG/mL 30.0-100.0 Below low normal T otal 25(Oh) Vitamin D [place] ([facility]) ID Date Data Source [id number] 02/08/2021 10:15:00 AM EDT [place] ([facility]) Name Value Range Interpretation Code Description Data Jennifer rce(s) Supporting Document(s) thyroid stimulating hormone 3.100 uIU/mL 0.358-3.740 Thyroid Stimulating Hormone [place] ([facility]) ID Date Data Source [id number] 02/08/2021 10:15:00 AM EDT [facility]) Name Value Range Interpretation Code Description Data Jennifer rce(s) Supporting Document(s) cholesterol level 264 mg/dL <200 Above high normal Cholesterol Level [place] ([facility]) triglycerides level 114 mg/dL <150 Triglycerides Le abhijit [place] ([facility]) HDL cholesterol 54 mg/dL >40 HDL Cholesterol ATHE NA ([facility]) Cholesterol in LDL [Mass/volume] in Serum or Plasma 187 mg/dL <100 Above high normal LDL Cholesterol [place] ([facility]) cholesterol risk ratio <5 Cholesterol R isk Ratio [place] ([facility]) non-HDL-C 210 mg/dL Non-hdl-c [place] ([facility]) ID Date Data Source [id number] 02/08/2021 10:15:00 [facility] Name Value Range Interpretation Code Description Data Jennifer rce(s) Supporting Document(s) blood urea nitrogen 13 mg/dL 7-18 Blood Urea Nitro gen [place] ([facility]) glucose, fasting 85 mg/dL 70-100 Glucose, Fasting AT [place] ([facility]) potassium serum 4.0 mEq/L 3.5-5.1 Potassium Serum ATHE NA ([facility]) sodium level 140 mEq/L 136-145 Sodium Level [place] ([facility]) glomerular filtration rate > 60.0 >60 Glomerula r Filtration Rate [place] ([facility]) creatinine for GFR 0.61 mg/dL 0.55-1.30 Creatinine for GF R [place] ([facility]) calcium level 9.4 mg/dL 8.5-10.1 Calcium Level [place] ( [facility]) anion gap 5 mEq/L 8-16 Below low normal Anion Gap [place] ( [facility]) AST/SGOT 11 U/L 7-37 AST/SGOT [place] ([facility]) carbon dioxide level 29 mEq/L 21-32 Carbon Dioxide Level [place] ([facility]) chloride level 106 mEq/L 98-107 Chloride Level [place] ([facility]) total protein 7.2 gm/dL 6.4-8.2 Total Protein [place] ( [facility]) alkaline phosphatase 122 U/L 45-117 Above high normal Alkaline Phosphatase [place] ([facility]) bilirubin,total 0.5 mg/dL 0.2-1.0 Bilirubin,total ATHE ([facility]) ALT/SGPT 16 U/L 12-78 ALT/SGPT [place] ([facility]) albumin 3.7 gm/dL 3.2-5.2 Albumin [place] ([facility]) albumin/globulin ratio 1.2-2.2 Below low normal Albumin /globulin Ratio [facility] ([facility]) ID Date Data Source [id number] 02/08/2021 10:15:00 AM EDT [place] ([facility]) Name Value Range Interpretation Code Description Data Jennifer rce(s) Supporting Document(s) total 25(oh) vitamin D 21.0 NG/mL 30.0-100.0 Below low normal T otal 25(Oh) Vitamin D [place] ([facility]) ID Date Data Source [id number] 02/08/2021 10:15:00 AM EDT [place] ([facility]) Name Value Range Interpretation Code Description Data Jennifer rce(s) Supporting Document(s) thyroid stimulating hormone 3.100 uIU/mL 0.358-3.740 Thyroid Stimulating Hormone [place] ([facility]) ID Date Data Source [id number] 02/08/2021 10:15:00 AM EDT [place] ([facility]) Name Value Range Interpretation Code Description Data Jennifer rce(s) Supporting Document(s) cholesterol level 264 mg/dL <200 Above high normal Cholesterol Level [place] ([facility]) triglycerides level 114 mg/dL <150 Triglycerides Le abhijit [place] ([facility]) cholesterol risk ratio <5 Cholesterol R isk Ratio [place] ([facility]) non-HDL-C 210 mg/dL Non-hdl-c [place] ([facility]) HDL cholesterol 54 mg/dL >40 HDL Cholesterol ATHE NA ([facility]) Cholesterol in LDL [Mass/volume] in Serum or Plasma 187 mg/dL <100 Above high normal LDL Cholesterol [facility] ([facility]) ID Date Data Source [id number] 02/08/2021 10:15:00 AM [facility] Name Value Range Interpretation Code Description Data Jennifer rce(s) Supporting Document(s) glucose, fasting 85 mg/dL 70-100 Glucose, Fasting AT [facility]) blood urea nitrogen 13 mg/dL 7-18 Blood Urea Nitro gen [place] ([facility]) glomerular filtration rate > 60.0 >60 Glomerula r Filtration Rate [place] ([facility]) creatinine for GFR 0.61 mg/dL 0.55-1.30 Creatinine for GF R [place] ([facility]) sodium level 140 mEq/L 136-145 Sodium Level [place]E ([facility]) chloride level 106 mEq/L 98-107 Chloride Level [place] ([facility]) potassium serum 4.0 mEq/L 3.5-5.1 Potassium Serum ATHE NA ([facility]) carbon dioxide level 29 mEq/L 21-32 Carbon Dioxide Level [place] ([facility]) anion gap 5 mEq/L 8-16 Below low normal Anion Gap [place] ( [facility]) calcium level 9.4 mg/dL 8.5-10.1 Calcium Level [place] ( [facility]) AST/SGOT 11 U/L 7-37 AST/SGOT [place] ([facility]) bilirubin,total 0.5 mg/dL 0.2-1.0 Bilirubin,total ATHE NA ([facility]) ALT/SGPT 16 U/L 12-78 ALT/SGPT [place] ([facility]) alkaline phosphatase 122 U/L 45-117 Above high normal Alkaline Phosphatase [place] ([facility]) albumin/globulin ratio 1.2-2.2 Below low normal Albumin /globulin Ratio [place] ([facility]) total protein 7.2 gm/dL 6.4-8.2 Total Protein [place] ( [facility]) albumin 3.7 gm/dL 3.2-5.2 Albumin [place] ([facility]) ID Date Data Source [id number] 02/08/2021 10:15:00 AM EDT [place] ([facility]) Name Value Range Interpretation Code Description Data Jennifer rce(s) Supporting Document(s) total 25(oh) vitamin D 21.0 NG/mL 30.0-100.0 Below low normal T otal 25(Oh) Vitamin D [place] ([facility]) ID Date Data Source [id number] 02/08/2021 10:15:00 AM EDT [place] ([facility]) Name Value Range Interpretation Code Description Data Jennifer rce(s) Supporting Document(s) thyroid stimulating hormone 3.100 uIU/mL 0.358-3.740 Thyroid Stimulating Hormone [place] ([facility]) ID Date Data Source [id number] 02/08/2021 10:15:00 AM EDT [place] ([facility]) Name Value Range Interpretation Code Description Data Jennifer rce(s) Supporting Document(s) triglycerides level 114 mg/dL <150 Triglycerides Le abhijit [place] ([facility]) cholesterol level 264 mg/dL <200 Above high normal Cholesterol Level [place] ([facility]) Cholesterol in LDL [Mass/volume] in Serum or Plasma 187 mg/dL <100 Above high normal LDL Cholesterol [facility] ([facility]) HDL cholesterol 54 mg/dL >40 HDL Cholesterol ATHE ([facility]) non-HDL-C 210 mg/dL Non-hdl-c [place] ([facility]) cholesterol risk ratio <5 Cholesterol R isk Ratio [place] ([facility]) ID Date Data Source [id number] 02/08/2021 10:15:00 AM EDT [place] ([facility]) Name Value Range Interpretation Code Description Data Jennifer rce(s) Supporting Document(s) glomerular filtration rate > 60.0 >60 Glomerula r Filtration Rate [place] ([facility]) creatinine for GFR 0.61 mg/dL 0.55-1.30 Creatinine for GF R [place] ([facility]) blood urea nitrogen 13 mg/dL 7-18 Blood Urea Nitro gen [place] ([facility]) glucose, fasting 85 mg/dL 70-100 Glucose, Fasting AT [place] ([facility]) chloride level 106 mEq/L 98-107 Chloride Level [place] ([facility]) potassium serum 4.0 mEq/L 3.5-5.1 Potassium Serum ATHE NA ([facility]) carbon dioxide level 29 mEq/L 21-32 Carbon Dioxide Level [place] ([facility]) sodium level 140 mEq/L 136-145 Sodium Level [place] ([facility]) AST/SGOT 11 U/L 7-37 AST/SGOT [place] ([facility]) calcium level 9.4 mg/dL 8.5-10.1 Calcium Level [place] ( [facility]) ALT/SGPT 16 U/L 12-78 ALT/SGPT [place] ([facility]) anion gap 5 mEq/L 8-16 Below low normal Anion Gap [place] ( [facility]) total protein 7.2 gm/dL 6.4-8.2 Total Protein [place] ( [facility]) bilirubin,total 0.5 mg/dL 0.2-1.0 Bilirubin,total ATHE NA ([facility]) albumin 3.7 gm/dL 3.2-5.2 Albumin [place] ([facility]) alkaline phosphatase 122 U/L 45-117 Above high normal Alkaline Phosphatase [place] ([facility]) albumin/globulin ratio 1.2-2.2 Below low normal Albumin /globulin Ratio [place] ([facility]) ID Date Data Source [id number] 12/23/2020 06:31:00 PM EST [facility]) Name Value Range Interpretation Code Description Data Jennifer rce(s) Supporting Document(s) sars covid-19 amplification negative negative Sars Cov id-19 Amplification [facility]) ID Date Data Source [id number] 12/23/2020 06:31:00 PM EST [facility]) Name Value Range Interpretation Code Description Data Jennifer rce(s) Supporting Document(s) sars covid-19 amplification negative negative Sars Cov id-19 [facility] ID Date Data Source [id number] 12/23/2020 06:31:00 PM EST [facility]) Name Value Range Interpretation Code Description Data Jennifer rce(s) Supporting Document(s) sars covid-19 amplification negative negative Sars Cov id-19 Amplification [facility]) ID Date Data Source [id number] 12/23/2020 06:31:00 PM EST [facility]) Name Value Range Interpretation Code Description Data Jennifer rce(s) Supporting Document(s) sars covid-19 amplification negative negative Sars Cov id-19 Amplification [place] ([facility]) ID Date Data Source [id number] 12/23/2020 06:31:00 PM EST [place] ([facility]) Name Value Range Interpretation Code Description Data Jennifer rce(s) Supporting Document(s) sars covid-19 amplification negative negative Sars Cov id-19 Amplification [place] ([facility]) ID Date Data Source [id number] 12/23/2020 06:31:00 PM EST [place] ([facility]) Name Value Range Interpretation Code Description Data Jennifer rce(s) Supporting Document(s) sars covid-19 amplification negative negative Sars Cov id-19 Amplification [facility]) ID Date Data Source [id number] 12/23/2020 06:31:00 PM EST [facility] Name Value Range Interpretation Code Description Data Jennifer rce(s) Supporting Document(s) SARS coronavirus 2 RNA [Presence] in Res piratory specimen by FILIPPO with probe detection NEGATIVE [facility] This lab was ordered by [facility] a nd reported by [facility]. ID Date Data Source [id number] 12/23/2020 05:13:00 PM EST [facility]) Name Value Range Interpretation Code Description Data Jennifer rce(s) Supporting Document(s) bill covid antigen negative negative Bill Covid Anti gen [place] ([facility]) ID Date Data Source [id number] 12/23/2020 05:13:00 PM EST [place] ([facility]) Name Value Range Interpretation Code Description Data Jennifer rce(s) Supporting Document(s) bill covid antigen negative negative Bill Covid Anti gen [place] ([facility]) ID Date Data Source [id number] 12/23/2020 05:13:00 PM EST [place]E ([facility]) Name Value Range Interpretation Code Description Data Jennifer rce(s) Supporting Document(s) bill covid antigen negative negative Bill Covid Anti gen [place] ([facility]) ID Date Data Source [id number] 12/23/2020 05:13:00 PM EST [place] ([facility]) Name Value Range Interpretation Code Description Data Jennifer rce(s) Supporting Document(s) bill covid antigen negative negative Bill Covid Anti gen [place] ([facility]) ID Date Data Source [id number] 12/23/2020 05:13:00 PM EST [place] ([facility]) Name Value Range Interpretation Code Description Data Jennifer rce(s) Supporting Document(s) bill covid antigen negative negative Bill Covid Anti gen [place] ([facility]) ID Date Data Source [id number] 12/23/2020 05:13:00 PM EST [place] ([facility]) Name Value Range Interpretation Code Description Data Jennifer rce(s) Supporting Document(s) bill covid antigen negative negative Bill Covid Anti gen [place] ([facility]) ID Date Data Source [id number] 12/23/2020 05:13:00 PM EST [facility] Name Value Range Interpretation Code Description Data Jennifer rce(s) Supporting Document(s) SARS COVID ANTIGEN NEGATIVE [facility] This lab was ordered by [facility] nd reported by [facility]. ID Date Data Source [id number] 10/31/2020 11:02:00 AM EST [facility] Name Value Range Interpretation Code Description Data Jennifer rce(s) Supporting Document(s) Laboratory test finding (navigational concept) Laboratory test result MEDENT ([facility], ) ID Date Data Source [id number] 08/15/2020 05:48:12 PM EDT [facility] Measurements & CalculationsHeight: 62 inches (5 [...] during this visit, including review of any vzod-khi-fowtfde medications, herbal therapies, and/or supplements.Allergy ReviewAllergy List [...] is? PoorAssessment & Plan Problems:Added: Nausea (ICD-787.02) (VPI01-W07.0) Assessment: Instructions: script sent too pharmacy for you today.Assessed:Person consulting for explanation of examinat ion or test findings (ICD-V65.8) (YHM83-Q45.2) Assessment: Instructions: We have reviewed your lab results with you todayHypertension (ICD-401.9) (ICD10- I10) Assessment: Instructions: Your blood pressure is at goal today. Please continue medications as prescribed. Please continue lifestyle changes to include healthy diet and physical activities. Please try to avoid added sodium in your diet.HYPERLIPIDEMIA (ICD-272.4) (NUP46-Q23.5) Assessment: cholesterol level significantly elevated. Pt states [...] MG ORAL TABLET DISINTEGRATINGZONISAMIDE 100 MGVITAMIN D3 31757 UNIT ORAL CAPSULETYLENOL EXTRA STRENGTH 500 MG ORAL TABLETNYSTATIN 607207 UNIT/GM EXTERNAL OINTMENTIMITREX 25 MG ORAL TABLETTRAZODONE [...] Method: ElectronicAllergies:NSAIDS (Critical)ASPIRIN (Moderate)IBUPROFEN (Moderate)Orders:COMP METABOLIC PANEL [CPT-63743] CBC W/DIFF [CPT-00075] LIPID PANEL [CPT-98908] HgBA1c [CPT-27490] Vitamin D 250H Unspecified [CPT-47204] Adult - Ofc Vst, EST, Level IV [CPT-14485] Follow-Up Return to clinic: 3 months for follow up Clinical Visit Summary CompletedMedications:ONDANSETRON 4 MG ORAL TABLET DISINTEGRATING (ONDANSETRON) one tablet by mouth twice daily as needed #15[Tablet] x 2 Route:ORAL Entered and Authorized by: Diana PICKENS Method used: Electronically to [facility] (retail) [address] [place] [address] Ph: [phone] Note to Pharmacy: Route: ORAL; Indications: NAUSEA RxID: [id number] 40 MG ORAL CAPSULE DELAYED RELEASE (OMEPRAZOLE) 1 pill po daily #30[Capsule] x 5 Entered and Authorized by: Diana PICKENS Method used: Electronically to [facility] (retail) [address] [place] [address] Fax: RxID: [id number] SULFATE 325 (65 FE) MG ORAL TABLET DELAYED RELEASE (FERROUS SULFATE) 1 tab by mouth every day #30[Tablet] x 5 Route:ORAL Entered and Authorized by: Diana PICKENS Method used: Electronically to [facility] (retail) [address] [place] [address] Note to Pharmacy: Route: ORAL; RxID: [id number] TARTRATE 25 MG ORAL TABLET (METOPROLOL TARTRATE) 1 tab by mouth twice per day #60[Tablet] x 5 Route:ORAL Entered and Authorized by: Diana PICKENS Method used: Electronically to [facility] (retail) [address] [place] [address] Fax: Note to Pharmacy: Route: ORAL; RxID: [id number] CALCIUM 40 MG ORAL TABLET (ATORVASTATIN CALCIUM) 1 tab by mouth every night at bedtime #30[Tablet] x 5 Route:ORAL Entered and Authorized by: Diana PICKENS Method used: Electronically to [facility] ([facility]) [address] [place] [address] Note to Pharmacy: Route: ORAL; RxID: [id number] signed by Diana PICKENS on 08/26/2020 at 11:25 AM Name Value Range Interpretation Code Description Data Jennifer rce(s) Supporting Document(s) Procedure Social History Code Duration Value Status Description Data Source(s ) Smoking 09/22/2021 12:00:00 AM EDT Unknown if ever smoked comp leted Unknown if ever smoked [facility] ([facility]) Smoking 08/29/2021 12:00:00 AM EDT Non Smoker completed Non Smoke r [facility] ([facility], ) Smoking 07/13/2021 12:00:00 AM EDT Unknown if ever smoked comp leted Unknown if ever smoked [facility] ([facility]) Alcohol intake 06/16/2021 12:00:00 AM EDT Current drinker of al cohol (finding) completed Current drinker of alcohol (finding) [facility] Smoking 05/19/2021 12:00:00 AM EDT Unknown if ever smoked comp leted Unknown if ever smoked [facility] ([facility]) Smoking 05/05/2021 12:00:00 AM EDT Unknown if ever smoked comp leted Unknown if ever smoked [facility] ([facility]) Smoking 05/02/2021 12:00:00 AM EDT Unknown if ever smoked comp leted Unknown if ever smoked [facility] ([facility]) Smoking 04/17/2021 12:00:00 AM EDT Unknown if ever smoked comp leted Unknown if ever smoked [facility] ([facility]) Alcohol intake 03/17/2021 12:00:00 AM EDT Current drinker of al cohol (finding) completed Current drinker of alcohol (finding) [facility] Smoking 03/16/2021 12:00:00 AM EDT Unknown if ever smoked comp leted Unknown if ever smoked [facility] ([facility]) Smoking 03/14/2021 12:00:00 AM EDT Unknown if ever smoked comp leted Unknown if ever smoked [facility] ([facility]) Smoking 02/24/2021 12:00:00 AM EDT Unknown if ever smoked comp leted Unknown if ever smoked [facility] ([facility]) Smoking 01/30/2021 12:00:00 AM EST Unknown if ever smoked comp leted Unknown if ever smoked [facility] ([facility]) Smoking 12/22/2020 12:00:00 AM EST Unknown if ever smoked comp leted Unknown if ever smoked [facility] ([facility]) Alcohol intake 12/07/2020 12:00:00 AM EST Yes completed [facility] Smoking 12/07/2020 12:00:00 AM EST Never smoker completed Never s moker [facility] Smoking 12/05/2020 12:00:00 AM EST Unknown if ever smoked comp leted Unknown if ever smoked [facility] ([facility]) Smoking 11/21/2020 12:00:00 AM EST Unknown if ever smoked comp leted Unknown if ever smoked [facility] ([facility]) Smoking 11/01/2020 12:00:00 AM EST Unknown if ever smoked comp leted Unknown if ever smoked [facility] ([facility]) Smoking 10/05/2020 12:00:00 AM EST Unknown if ever smoked comp leted Unknown if ever smoked [facility] ([facility]) Smoking 09/20/2020 12:00:00 AM EDT Unknown if ever smoked comp leted Unknown if ever smoked [facility] ([facility]) Smoking 08/29/2020 12:00:00 AM EDT Unknown if ever smoked comp leted Unknown if ever smoked [facility] ([facility]) Smoking 08/26/2020 12:00:00 AM EDT Unknown if ever smoked comp leted Unknown if ever smoked [facility] ([facility]) Vital Signs ID Date Data Source UNK Name Value Range Interpretation Code Description Data Source(s) Systolic blood pressure 120 mm[Hg] 120 mm[Hg] [facility] Diastolic blood pressure 62 mm[Hg] 62 mm[Hg] [facility] Heart rate 45 /min 45 /min [facility] ([facility]) Oxygen saturation in Arterial blood by Pulse oximetry 95 % 95 % [facility] ([facility]) Body height 62 [in_i] 62 [in_i] [facility] ([facility]) 5'2" Body weight 215.00 [lb_av] 215.00 [lb_av] MEDEN T ([facility]) Body mass index (BMI) [Ratio] 39.3 kg/m2 39.3 k g/m2 [facility] ([facility]) [place] body weight 110 [lb_av] 110 [lb_av] [facility] Body weight 97.524 kg 97.524 kg [facility] ([facility]) Body surface area Derived from formula 1.97 m2 1.97 m2 [facility] ([facility]) Systolic blood pressure 120 mm[Hg] 120 mm[Hg] M EDENT ([facility]) Diastolic blood pressure 70 mm[Hg] 70 mm[Hg] [facility] Heart rate 56 /min 56 /min [facility] ([facility]) Respiratory rate 16 /min 16 /min [facility] ( [facility]) Body weight 215.00 [lb_av] 215.00 [lb_av] MEDEN T ([facility]) Body mass index (BMI) [Ratio] 39.3 kg/m2 39.3 k g/m2 [facility] [place] body weight 110 [lb_av] 110 [lb_av] MEDEN T ([facility]) Body weight 97.524 kg 97.524 kg [facility] ([facility]) Body surface area Derived from formula 1.97 m2 1.97 m2 [facility] ([facility]) Systolic blood pressure 122 mm[Hg] 122 mm[Hg] M EDENT ([facility]) Diastolic blood pressure 82 mm[Hg] 82 mm[Hg] [facility] ([facility]) Body height 62 [in_i] 62 [in_i] [facility] ([facility]) 5'2" Body mass index (BMI) [Ratio] 39.9 kg/m2 39.9 k g/m2 [facility] ([facility]) Body weight 98.885 kg 98.885 kg [facility] ([facility]) Systolic blood pressure 120 mm[Hg] 120 mm[Hg] [facility] Diastolic blood pressure 62 mm[Hg] 62 mm[Hg] [facility] ([facility]) Heart rate 53 /min 53 /min [facility] ([facility]) Oxygen saturation in Arterial blood by Pulse oximetry 98 % 98 % [facility] ([facility]) Body height 62 [in_i] 62 [in_i] [facility] ([facility]) 5'2" Body weight 218.00 [lb_av] 218.00 [lb_av] MEDEN T ([facility]) [place] body weight 110 [lb_av] 110 [lb_av] MED[facility] T ([facility]) Body surface area Derived from formula 1.98 m2 1.98 m2 [facility] ([facility]) Systolic blood pressure 124 mm[Hg] 124 mm[Hg] M EDENT ([facility]) Diastolic blood pressure 70 mm[Hg] 70 mm[Hg] [facility] ([facility]) Heart rate 76 /min 76 /min [facility] ([facility]) Respiratory rate 16 /min 16 /min [facility] ( [facility]) Body weight 100.699 kg 100.699 kg [facility] ([facility]) Body surface area Derived from formula 2.00 m2 2.00 m2 [facility] ([facility]) Body mass index (BMI) [Ratio] 40.6 kg/m2 40.6 k g/m2 [facility] Body weight 222.00 [lb_av] 222.00 [lb_av] MEDEN T ([facility]) [place] body weight 110 [lb_av] 110 [lb_av] MED[facility] T ([facility]) Body height 62 [in_i] 62 [in_i] [facility] ([facility]) 5'2" Body weight 100.699 kg 100.699 kg [facility] ([facility]) Systolic blood pressure 118 mm[Hg] 118 mm[Hg] EDENT ([facility]) Diastolic blood pressure 82 mm[Hg] 82 mm[Hg] [facility] ([facility]) Body height 62 [in_i] 62 [in_i] [facility] ([facility]) 5'2" Body weight 222.00 [lb_av] 222.00 [lb_av] [facility] T ([facility]) Body mass index (BMI) [Ratio] 40.6 kg/m2 40.6 k g/m2 [facility] [place] body weight 110 [lb_av] 110 [lb_av] [facility] T ([facility]) Body surface area Derived from formula 2.00 m2 2.00 m2 [facility] ([facility]) Body weight 222.12 [lb_av] 222.12 [lb_av] MED[facility] T ([facility]) Body mass index (BMI) [Ratio] 40.6 kg/m2 40.6 k g/m2 [facility] [place] body weight 110 [lb_av] 110 [lb_av] MEDEN T ([facility], ) Diastolic blood pressure 70 mm[Hg] 70 mm[Hg] MEDENT ([facility], ) Heart rate 66 /min 66 /min MEDENT ([facility], ) Systolic blood pressure 122 mm[Hg] 122 mm[Hg] M EDENT ([facility], ) Oxygen saturation in Arterial blood by Pulse oximetry 96 % 96 % [facility] Body height 62 [in_i] 62 [in_i] MEDENT ([facility], ) 5'2" Body weight 100.756 kg 100.756 kg [facility] ([facility], ) Body surface area Derived from formula 2.00 m2 2.00 m2 [facility] ([facility], ) Body height 62 [in_i] 62 [in_i] ROYAL ([facility]) Systolic blood pressure 110 mm[Hg] 110 mm[Hg] [facility] Diastolic blood pressure 70 mm[Hg] 70 mm[Hg] [facility] Heart rate 62 /min 62 /min [facility] Respiratory rate 19 /min 19 /min [facility] Body height 157.5 cm 157.5 cm [facility] Body weight 102.967 kg 102.967 kg [facility] Body mass index (BMI) [Ratio] 41.52 kg/m2 41.52 kg/m2 [facility] Oxygen saturation in Arterial blood by Pulse oximetry 96 % 96 % [facility] Body height 62 [in_i] 62 [in_i] ROYAL ([facility]) Body height 62 [in_i] 62 [in_i] MARILEE ([facility]) [place] body weight 110 [lb_av] 110 [lb_av] MEDEN T ([facility], ) Body height 62 [in_i] 62 [in_i] MEDENT ([facility], ) 5'2" Oxygen saturation in Arterial blood by Pulse oximetry 97 % 97 % [facility] Heart rate 57 /min 57 /min MEDENT ([facility]) Diastolic blood pressure 72 mm[Hg] 72 mm[Hg] [facility] ([facility]) Systolic blood pressure 130 mm[Hg] 130 mm[Hg] [facility] Body mass index (BMI) [Ratio] 41.5 kg/m2 41.5 k g/m2 [facility] ([facility]) Body weight 227.00 [lb_av] 227.00 [lb_av] MEDEN T ([facility]) Body weight 102.967 kg 102.967 kg [facility] ([facility]) Body surface area Derived from formula 2.02 m2 2.02 m2 [facility] ([facility]) Oxygen saturation in Arterial blood by Pulse oximetry 97 % 97 % [facility] ([facility]) Body height 62 [in_i] 62 [in_i] [facility] ([facility]) 5'2" Body weight 227.00 [lb_av] 227.00 [lb_av] [facility] Body mass index (BMI) [Ratio] 41.5 kg/m2 41.5 k g/m2 [facility] ([facility]) [place] body weight 110 [lb_av] 110 [lb_av] [facility] Body weight 102.967 kg 102.967 kg [facility] ([facility]) Body surface area Derived from formula 2.02 m2 2.02 m2 [facility] ([facility]) Systolic blood pressure 118 mm[Hg] 118 mm[Hg] [facility] Diastolic blood pressure 82 mm[Hg] 82 mm[Hg] [facility] Heart rate 66 /min 66 /min [facility] Body height 157.5 cm 157.5 cm [facility] Body weight 109.226 kg 109.226 kg [facility] Body mass index (BMI) [Ratio] 44.04 kg/m2 44.04 kg/m2 [facility] Oxygen saturation in Arterial blood by Pulse oximetry 96 % 96 % [facility] Body height 0.00 in Normal (applies to non-numeric resu lts) 0.00 in [facility] ([facility]) Body weight Measured 0.00 lbs Normal (applies to n on-numeric results) 0.00 lbs [facility] ([facility]) Body mass index (BMI) [Ratio] 0.00 kg/m2 No rmal (applies to non-numeric results) 0.00 kg/m2 [facility] ([facility]) Systolic blood pressure 0 mm[Hg] Normal (applies t o non-numeric results) 0 mm[Hg] [facility] ([facility]) Diastolic blood pressure 0 mm[Hg] Normal (applies to non-numeric results) 0 mm[Hg] [facility] ([facility]) Diastolic blood pressure 83 mm[Hg] 83 mm[Hg] ROYAL ([facility]) Body height 62 [in_i] 62 [in_i] ROYAL ([facility]) Body mass index (BMI) [Ratio] 43.7 kg/m2 43.7 k g/m2 MARILEE ([facility]) Systolic blood pressure 124 mm[Hg] 124 mm[Hg] [facility] Body weight 3824 [oz_av] 3824 [oz_av] MARILEE ([facility]) Diastolic blood pressure 83 mm[Hg] 83 mm[Hg] ROYAL ([facility]) Body height 62 [in_i] 62 [in_i] MARILEE ([facility]) Body mass index (BMI) [Ratio] 43.7 kg/m2 43.7 k g/m2 MARILEE ([facility]) Systolic blood pressure 124 mm[Hg] 124 mm[Hg] A [facility]) Body weight 3824 [oz_av] 3824 [oz_av] MARILEE ([facility]) Diastolic blood pressure 83 mm[Hg] 83 mm[Hg] [facility] Body height 62 [in_i] 62 [in_i] MARILEE ([facility]) Body mass index (BMI) [Ratio] 43.7 kg/m2 43.7 k g/m2 MAR[facility]E ([facility]) Systolic blood pressure 124 mm[Hg] 124 mm[Hg] A THENA ([facility]) Body weight 3824 [oz_av] 3824 [oz_av] MARILEE ([facility]) Diastolic blood pressure 83 mm[Hg] 83 mm[Hg] MARILEE ([facility]) Body height 62 [in_i] 62 [in_i] MARILEE ([facility]) Body mass index (BMI) [Ratio] 43.7 kg/m2 43.7 k g/m2 MAR[facility]E ([facility]) Systolic blood pressure 124 mm[Hg] 124 mm[Hg] A THENA ([facility]) Body weight 3824 [oz_av] 3824 [oz_av] MARILEE ([facility]) Body mass index (BMI) [Ratio] 42.4 kg/m2 42.4 k g/m2 MEDENT ([facility], ) [place] body weight 110 [lb_av] 110 [lb_av] MEDEN T ([facility], ) Body weight 105.235 kg 105.235 kg MEDENT ([facility], ) Body surface area Derived from formula 2.04 m2 2.04 m2 [facility], ) Systolic blood pressure 145 mm[Hg] 145 mm[Hg] Fernando EDCINDY ([facility], ) Diastolic blood pressure 77 mm[Hg] 77 mm[Hg] MEDENT ([facility], ) Body height 62 [in_i] 62 [in_i] MEDENT ([facility], ) 5'2" Body weight 232.00 [lb_av] 232.00 [lb_av] MEDEN T ([facility], ) Systolic blood pressure 124 mm[Hg] 124 mm[Hg] [facility] Diastolic blood pressure 80 mm[Hg] 80 mm[Hg] [facility] Heart rate 60 /min 60 /min [facility] Body height 157.5 cm 157.5 cm [facility] Body weight 101.606 kg 101.606 kg [facility] Body mass index (BMI) [Ratio] 40.97 kg/m2 40.97 kg/m2 [facility] Oxygen saturation in Arterial blood by Pulse oximetry 97 % 97 % [facility] Body height 0.00 in Normal (applies to non-numeric resu lts) 0.00 in [facility] ([facility]) Body weight Measured 0.00 lbs Normal (applies to n on-numeric results) 0.00 lbs [facility] ([facility]) Body mass index (BMI) [Ratio] 0.00 kg/m2 No rmal (applies to non-numeric results) 0.00 kg/m2 [facility] ([facility]) Systolic blood pressure 0 mm[Hg] Normal (applies t o non-numeric results) 0 mm[Hg] [facility] ([facility]) Diastolic blood pressure 0 mm[Hg] Normal (applies to non-numeric results) 0 mm[Hg] [facility] ([facility]) Body mass index (BMI) [Ratio] 41.0 kg/m2 41.0 k g/m2 [facility], [facility] [place] body weight 110 [lb_av] 110 [lb_av] MEDEN T ([facility]) Body weight 101.606 kg 101.606 kg [facility] ([facility]) Body height 62 [in_i] 62 [in_i] [facility] 5'2" Body weight 224.00 [lb_av] 224.00 [lb_av] MEDEN T ([facility]) Body surface area Derived from formula 2.01 m2 2.01 m2 [facility] ([facility], ) Body height 62 [in_i] 62 [in_i] MEDENT ([facility]) 5'2" Body weight 224.00 [lb_av] 224.00 [lb_av] MEDEN T ([facility], ) Body mass index (BMI) [Ratio] 41.0 kg/m2 41.0 k g/m2 MEDENT ([facility]) [place] body weight 110 [lb_av] 110 [lb_av] MEDEN T ([facility]) Body weight 101.606 kg 101.606 kg [facility] ([facility]) Body surface area Derived from formula 2.01 m2 2.01 m2 [facility] ([facility]) Body height 0.00 in Normal (applies to non-numeric resu lts) 0.00 in [facility] ([facility]) Body weight Measured 0.00 lbs Normal (applies to n on-numeric results) 0.00 lbs [facility] ([facility]) Body mass index (BMI) [Ratio] 0.00 kg/m2 No rmal (applies to non-numeric results) 0.00 kg/m2 [facility] ([facility]) Systolic blood pressure 0 mm[Hg] Normal (applies t o non-numeric results) 0 mm[Hg] [facility] ([facility]) Diastolic blood pressure 0 mm[Hg] Normal (applies to non-numeric results) 0 mm[Hg] [facility] ([facility]) Diastolic blood pressure 86 mm[Hg] 86 mm[Hg] ROYAL ([facility]) Body height 62 [in_i] 62 [in_i] ROYAL ([facility]) Body mass index (BMI) [Ratio] 42.49 kg/m2 42.49 kg/m2 MARILEE ([facility]) Systolic blood pressure 130 mm[Hg] 130 mm[Hg] A [facility] ([facility]) Body weight 3704 [oz_av] 3704 [oz_av] MARILEE ([facility]) Diastolic blood pressure 86 mm[Hg] 86 mm[Hg] MARILEE ([facility]) Body height 62 [in_i] 62 [in_i] MARILEE ([facility]) Body mass index (BMI) [Ratio] 42.49 kg/m2 42.49 kg/m2 MAR[facility]E ([facility]) Systolic blood pressure 130 mm[Hg] 130 mm[Hg] A [facility] ([facility]) Body weight 3704 [oz_av] 3704 [oz_av] MARILEE ([facility]) Diastolic blood pressure 86 mm[Hg] 86 mm[Hg] MARILEE ([facility]) Body height 62 [in_i] 62 [in_i] MARILEE ([facility]) Body mass index (BMI) [Ratio] 42.49 kg/m2 42.49 kg/m2 MAR[facility]E ([facility]) Systolic blood pressure 130 mm[Hg] 130 mm[Hg] [facility] Body weight 3704 [oz_av] 3704 [oz_av] MARILEE ([facility]) Diastolic blood pressure 86 mm[Hg] 86 mm[Hg] MARILEE ([facility]) Body height 62 [in_i] 62 [in_i] MARILEE ([facility]) Body mass index (BMI) [Ratio] 42.49 kg/m2 42.49 kg/m2 MAR[facility]E ([facility]) Systolic blood pressure 130 mm[Hg] 130 mm[Hg] [facility] Body weight 3704 [oz_av] 3704 [oz_av] MARILEE ([facility]) Diastolic blood pressure 86 mm[Hg] 86 mm[Hg] MARILEE ([facility]) Body height 62 [in_i] 62 [in_i] MARILEE ([facility]) Body mass index (BMI) [Ratio] 42.49 kg/m2 42.49 kg/m2 MARILEE ([facility]) Systolic blood pressure 130 mm[Hg] 130 mm[Hg] A THENA ([facility]) Body weight 3704 [oz_av] 3704 [oz_av] MARILEE ([facility]) Body height 62 [in_i] 62 [in_i] MARILEE ([facility]) Body mass index (BMI) [Ratio] 42.49 kg/m2 42.49 kg/m2 MARILEE ([facility]) Systolic blood pressure 130 mm[Hg] 130 mm[Hg] [facility] Body weight 3704 [oz_av] 3704 [oz_av] MARILEE ([facility]) Diastolic blood pressure 86 mm[Hg] 86 mm[Hg] MARILEE ([facility]) Heart rate 68 /min 68 /min MEDENT ([facility], ) Systolic blood pressure 126 mm[Hg] 126 mm[Hg] M EDENT ([facility], ) Diastolic blood pressure 80 mm[Hg] 80 mm[Hg] MEDENT ([facility], ) Respiratory rate 16 /min 16 /min MEDENT ( [facility], ) Patient Treatment Plan of Care Planned Activity Planned Date Details Description Data Source (s) ammonium lactate 120 MG/ML Topical Cream 05/15/2021 12:00:00 AM EDT [facility] Colchicine 0.6 MG Oral Tablet 03/17/2021 12:00:00 AM EDT [facility] Fluoxetine 40 MG Oral Capsule 03/16/2021 12:00:00 AM EDT [facility] Metoprolol Tartrate 25 MG Oral Tablet 12/07/2020 12:00:00 AM EST [facility] Prednisone 20 MG Oral Tablet 11/04/2020 12:00:00 AM [facility] Cyclobenzaprine hydrochloride 5 MG Oral Tablet 11/04/2020 12:00:00 AM [facility] zonisamide 100 MG Oral Capsule 10/19/2020 12:00:00 AM EST [facility] Ondansetron 4 MG Disintegrating Oral Tablet 08/16/2020 12:00:00 AM EDT [facility] ferrous sulfate 325 MG Delayed Release Oral Tablet 08/16/2020 12 :00:00 AM EDT [facility] zonisamide 50 MG Oral Capsule 07/26/2020 12:00:00 AM EDT [facility] zonisamide 25 MG Oral Capsule 06/21/2020 12:00:00 AM EDT [facility] zonisamide 50 MG Oral Capsule MAR[facility]E ([facility]) zonisamide 25 MG Oral Capsule MAR[facility]E ([facility]) Prednisone 20 MG Oral Tablet MAR[facility] ([facility]) Prednisone 10 MG Oral Tablet MARILEE ([facility]) Acetaminophen 325 MG / Hydrocodone Bitartrate 5 MG Oral Tablet MARILEE ([facility]) Cyclobenzaprine hydrochloride 5 MG Oral Tablet MARILEE ([facility]) Amoxicillin 500 MG Oral Capsule MAR[facility]E ([facility]) zonisamide 50 MG Oral Capsule MAR[facility] ([facility]) zonisamide 25 MG Oral Capsule MAR[facility] ([facility]) Prednisone 20 MG Oral Tablet MAR[facility] ([facility]) Prednisone 10 MG Oral Tablet [facility] ([facility]) Acetaminophen 325 MG / Hydrocodone Bitartrate 5 MG Oral Tablet MAR[facility] ([facility]) Cyclobenzaprine hydrochloride 5 MG Oral Tablet MAR[facility] ([facility]) Amoxicillin 500 MG Oral Capsule MAR[facility]E ([facility]) Omeprazole 40 MG Delayed Release Oral Capsule [facility] zonisamide 50 MG Oral Capsule MAR[facility] ([facility]) zonisamide 25 MG Oral Capsule [facility] ([facility]) Prednisone 20 MG Oral Tablet [facility] ([facility]) Prednisone 10 MG Oral Tablet [facility] ([facility]) Acetaminophen 325 MG / Hydrocodone Bitartrate 5 MG Oral Tablet [facility] ([facility]) Cyclobenzaprine hydrochloride 5 MG Oral Tablet [facility] ([facility]) Amoxicillin 500 MG Oral Capsule [facility] ([facility]) Loratadine 10 MG Oral Tablet [facility] Trazodone Hydrochloride 100 MG Oral Tablet [facility] Fluoxetine 20 MG Oral Capsule [facility] zonisamide 50 MG Oral Capsule MAR[facility] ([facility]) zonisamide 25 MG Oral Capsule [facility] ([facility]) Prednisone 20 MG Oral Tablet [facility] ([facility]) Prednisone 10 MG Oral Tablet [facility] ([facility]) Acetaminophen 325 MG / Hydrocodone Bitartrate 5 MG Oral Tablet [facility] ([facility]) Cyclobenzaprine hydrochloride 5 MG Oral Tablet [facility] ([facility]) Amoxicillin 500 MG Oral Capsule MAR[facility] ([facility]) Metoprolol Tartrate 25 MG Oral Tablet [facility]
== END 2021-10-01 22:15 | disposition home or self-care (01) ==
LOC: M ED 18:01
DX: M25.552 Pain in left hip (principal); S90.112A Contusion of left great toe without damage to nail, initial encounter; W20.8XXA Other cause of strike by thrown, projected or falling object, initial encounter; Y92.9 Unspecified place or not applicable; Y93.9 Activity, unspecified; Y99.9 Unspecified external cause status; J45.909 Unspecified asthma, uncomplicated; K21.9 Gastro-esophageal reflux disease without esophagitis; M54.9 Dorsalgia, unspecified; F41.9 Anxiety disorder, unspecified; F31.89 Other bipolar disorder; Z86.711 Personal history of pulmonary embolism; Z79.899 Other long term (current) drug therapy; Z88.6 Allergy status to analgesic agent; Z88.8 Allergy status to other drugs, medicaments and biological substances; Z91.02 Food additives allergy status

== ENCOUNTER → 2022-01-02 | Outpatient (CLI) | payer OTHER, MEDICAID ==
[~2022-01-02] MED LIST changes: -CEFD1CAP8 PO; +CEFD300C41 PO; -OMEP-221 PO; +OMEP40CA5 PO
== END ==
LOC: M PLAIMG 13:26
PROVIDERS: ATTEND Podiatrist Foot & Ankle Surgery
DX: M25.571 Pain in right ankle and joints of right foot (principal); M19.071 Primary osteoarthritis, right ankle and foot

== ENCOUNTER 2022-01-05 11:45 | Emergency (ER) | payer OTHER, MEDICAID ==
[~2022-01-05] VITALS: Ht 157.5 cm; Wt 108.0 kg
[2022-01-05] MEDS ORDERED: diazePAM 5MG TABLET PO ONE (14:30)
[2022-01-05] MEDS ORDERED: BACLOFEN 10 MG TAB PO ONE (14:30)
[2022-01-05] MEDS ORDERED: LIDOCAINE 5% (LIDODERM) PATCH TD ONE (14:30)
[2022-01-05] MEDS ORDERED: PRED20TA PO (15:43)
[2022-01-05] MEDS ORDERED: LIDO5DIS41 TD (15:43)
[2022-01-05] MEDS ORDERED: BACL10TA2 PO (15:43)
[2022-01-05 16:05] VITALS: BP 138/65
[2022-01-05] MEDS ORDERED: **NOTE PATIENT COMMENT** MISC XX SCH (21:00)
== END 2022-01-05 16:06 | disposition home or self-care (01) ==
LOC: M ED 11:45
DX: S39.012A Strain of muscle, fascia and tendon of lower back, initial encounter (principal); X50.0XXA Overexertion from strenuous movement or load, initial encounter; Y92.9 Unspecified place or not applicable; Y93.9 Activity, unspecified; Y99.9 Unspecified external cause status; I10 Essential (primary) hypertension; E78.5 Hyperlipidemia, unspecified; D64.9 Anemia, unspecified; K21.9 Gastro-esophageal reflux disease without esophagitis; F31.9 Bipolar disorder, unspecified; F41.9 Anxiety disorder, unspecified; Z88.6 Allergy status to analgesic agent; Z79.899 Other long term (current) drug therapy

== ENCOUNTER 2022-01-22 12:58 | Emergency (ER) | payer OTHER, MEDICAID ==
[~2022-01-22] VITALS: Ht 157.5 cm; Wt 108.3 kg
[~2022-01-22 12:58] MED LIST changes: +BACL10TA2 PO; +LIDO5DIS41 TD
[2022-01-22 15:00] VITALS: BP 137/81
== END 2022-01-22 15:34 | disposition home or self-care (01) ==
LOC: M ED 12:58
DX: R07.89 Other chest pain (principal); I10 Essential (primary) hypertension; E78.5 Hyperlipidemia, unspecified; J45.909 Unspecified asthma, uncomplicated; K21.9 Gastro-esophageal reflux disease without esophagitis; M54.9 Dorsalgia, unspecified; K58.9 Irritable bowel syndrome, unspecified; Z79.899 Other long term (current) drug therapy; Z88.6 Allergy status to analgesic agent; Z88.8 Allergy status to other drugs, medicaments and biological substances; Z91.02 Food additives allergy status

== ENCOUNTER 2022-02-28 16:39 | Emergency (ER) | payer OTHER, MEDICAID ==
[~2022-02-28] VITALS: Ht 157.5 cm; Wt 110.0 kg
[~2022-02-28 16:39] MED LIST changes: -ACET1TAB16 PO; +ACET300T48 PO
[2022-02-28] MEDS ORDERED: PERCOCET 5MG/325MG TAB PO ONE (19:30)
[2022-02-28 19:56] VITALS: BP 164/65
== END 2022-02-28 20:07 | disposition home or self-care (01) ==
LOC: M ED 16:39
DX: S82.64XA Nondisplaced fracture of lateral malleolus of right fibula, initial encounter for closed fracture (principal); W19.XXXA Unspecified fall, initial encounter; Y92.89 Other specified places as the place of occurrence of the external cause; Y93.89 Activity, other specified; Y99.0 Civilian activity done for income or pay; I10 Essential (primary) hypertension; F31.89 Other bipolar disorder; F41.9 Anxiety disorder, unspecified; J45.909 Unspecified asthma, uncomplicated; K21.9 Gastro-esophageal reflux disease without esophagitis; M54.9 Dorsalgia, unspecified; R51.9 Headache, unspecified; Z86.711 Personal history of pulmonary embolism; Z79.899 Other long term (current) drug therapy; Z88.6 Allergy status to analgesic agent; Z88.8 Allergy status to other drugs, medicaments and biological substances; Z91.02 Food additives allergy status

== ENCOUNTER 2022-05-07 15:51 | Emergency (ER) | payer OTHER, MEDICAID ==
[~2022-05-07] VITALS: Ht 157.5 cm; Wt 106.6 kg
[2022-05-07 15:51] VITALS: BP 139/87
[~2022-05-07 15:51] MED LIST changes: -ZONI100C17; +ZONI100C67
[2022-05-07] MEDS ORDERED: CIPRHCOTIC AS (17:49)
== END 2022-05-07 18:05 | disposition home or self-care (01) ==
LOC: M ED 15:51
DX: H60.312 Diffuse otitis externa, left ear (principal); J45.909 Unspecified asthma, uncomplicated; J30.1 Allergic rhinitis due to pollen; I10 Essential (primary) hypertension; G43.909 Migraine, unspecified, not intractable, without status migrainosus; K21.9 Gastro-esophageal reflux disease without esophagitis; Z79.899 Other long term (current) drug therapy; Z88.6 Allergy status to analgesic agent; Z88.8 Allergy status to other drugs, medicaments and biological substances; Z91.89 Other specified personal risk factors, not elsewhere classified

== ENCOUNTER 2022-06-15 14:04 | Emergency (ER) | payer OTHER, MEDICAID ==
[~2022-06-15] VITALS: Ht 157.5 cm; Wt 105.7 kg
[~2022-06-15 14:04] MED LIST changes: +CIPRHCOTIC AS
[2022-06-15 15:00] LABS: BASO % 0.4 % (0.0-1.0); EOS # 0.1 10^3/uL (0.0-0.5); HEMATOCRIT 42.4 % (36.0-47.0); HEMOGLOBIN 13.7 g/dl (12.0-15.5); LYMPH % 37.2 % (24.0-44.0); MEAN CORPUSCULAR HEMOGLOBIN 29.1 pg (27.0-33.0); MEAN CORPUSCULAR HGB CONC 32.3 g/dl (32.0-36.5); MEAN CORPUSCULAR VOLUME 90.2 fl (80.0-96.0); MONO # 0.4 10^3/uL (0.0-0.8); MONO % 7.2 % (2.0-8.0); NEUTROPHILS # 2.9 10^3/uL (1.5-8.5); NEUTROPHILS % 53.2 % (36.0-66.0); PLATELET COUNT, AUTOMATED 281 10^3/uL (150-450); WHITE BLOOD COUNT 5.5 10^3/uL (4.0-10.0)
[2022-06-15 15:28] LABS: BLOOD UREA NITROGEN 10 MG/DL (7-18); CARBON DIOXIDE LEVEL 30 MEQ/L (21-32); CHLORIDE LEVEL 108 MEQ/L (98-107); CREATININE FOR GFR 0.75 MG/DL (0.55-1.30); GLOMERULAR FILTRATION RATE > 60.0 (>58); GLUCOSE, FASTING 109 MG/DL (70-100); POTASSIUM SERUM 3.9 MEQ/L (3.5-5.1); SODIUM LEVEL 142 MEQ/L (136-145)
[2022-06-15 15:33] LABS: CK-MB VALUE MASS < 1.0 NG/ML (<3.6); CPK CREATINE PHOSPHOKINASE 84 U/L (26-192); MB/CK RELATIVE INDEX 1.19 (< OR =4)
[2022-06-15] MEDS ORDERED: ISOVUE-370 76% 100ML VIAL As Ordered ONE (18:47)
[2022-06-15] MEDS ORDERED: PRED20TA PO (21:59)
[2022-06-15 22:08] VITALS: BP 158/83
== END 2022-06-15 22:41 | disposition home or self-care (01) ==
LOC: M ED 14:04
DX: R07.1 Chest pain on breathing (principal); E66.9 Obesity, unspecified; I10 Essential (primary) hypertension; K21.9 Gastro-esophageal reflux disease without esophagitis; Z86.711 Personal history of pulmonary embolism; Z82.49 Family history of ischemic heart disease and other diseases of the circulatory system; Z79.899 Other long term (current) drug therapy; Z88.6 Allergy status to analgesic agent; Z91.02 Food additives allergy status
CPT/HCPCS: 70450; 71275; 80048; 82550; 82553; 84484; 85025; 93005; 93971; 99284; Q9967

== ENCOUNTER 2022-08-05 12:35 | Emergency (ER) | payer OTHER, MEDICAID ==
[~2022-08-05] VITALS: Ht 157.5 cm; Wt 108.2 kg
[2022-08-05] MEDS ORDERED: METO1TAB87 (12:54)
[2022-08-05] MEDS ORDERED: ERGO500029 (12:54)
[2022-08-05] MEDS ORDERED: OMEP40CA5 (12:54)
[2022-08-05] MEDS ORDERED: INCR1INH (12:54)
[2022-08-05 13:33] LABS: BASO % 0.7 % (0.0-1.0); EOS # 0.3 10^3/uL (0.0-0.5); EOS % 5.8 % (0.0-3.0); HEMATOCRIT 40.8 % (36.0-47.0); HEMOGLOBIN 13.4 g/dl (12.0-15.5); LYMPH # 1.9 10^3/uL (1.5-5.0); LYMPH % 33.9 % (24.0-44.0); MEAN CORPUSCULAR HEMOGLOBIN 29.9 pg (27.0-33.0); MEAN CORPUSCULAR HGB CONC 32.8 g/dl (32.0-36.5); MEAN CORPUSCULAR VOLUME 91.1 fl (80.0-96.0); MONO # 0.5 10^3/uL (0.0-0.8); MONO % 8.8 % (2.0-8.0); NEUTROPHILS # 2.8 10^3/uL (1.5-8.5); NEUTROPHILS % 50.4 % (36.0-66.0); PLATELET COUNT, AUTOMATED 255 10^3/uL (150-450); RED BLOOD COUNT 4.48 10^6/uL (4.00-5.40); WHITE BLOOD COUNT 5.5 10^3/uL (4.0-10.0)
[2022-08-05 14:06] LABS: BLOOD UREA NITROGEN 9 MG/DL (7-18); CALCIUM LEVEL 8.5 MG/DL (8.5-10.1); CARBON DIOXIDE LEVEL 29 MEQ/L (21-32); CHLORIDE LEVEL 109 MEQ/L (98-107); CREATININE FOR GFR 0.72 MG/DL (0.55-1.30); GLOMERULAR FILTRATION RATE > 60.0 (>58); GLUCOSE, FASTING 107 MG/DL (70-100); SODIUM LEVEL 141 MEQ/L (136-145)
[2022-08-05] MEDS ORDERED: ISOVUE-370 76% 100ML VIAL As Ordered ONE (14:10)
[2022-08-05 15:36] VITALS: BP 158/71
== END 2022-08-05 15:43 | disposition home or self-care (01) ==
LOC: M ED 12:35
DX: R06.02 Shortness of breath (principal); R07.81 Pleurodynia; I10 Essential (primary) hypertension; J45.909 Unspecified asthma, uncomplicated; E78.5 Hyperlipidemia, unspecified; D64.9 Anemia, unspecified; K21.9 Gastro-esophageal reflux disease without esophagitis; Z87.440 Personal history of urinary (tract) infections; Z79.899 Other long term (current) drug therapy; Z88.6 Allergy status to analgesic agent; Z88.8 Allergy status to other drugs, medicaments and biological substances; Z91.02 Food additives allergy status
CPT/HCPCS: 71275; 80048; 85025; 85379; 93005; 99284; Q9967

== ENCOUNTER 2022-09-18 11:11 | Emergency (ER) | payer OTHER, MEDICAID ==
[~2022-09-18] VITALS: Ht 157.5 cm; Wt 108.5 kg
[~2022-09-18 11:11] MED LIST changes: +ERGO500029; +INCR1INH; +METO1TAB87; +OMEP40CA5
[2022-09-18] MEDS ORDERED: ACETAMINOPHEN 500 MG TAB PO ONE (18:10)
[2022-09-18] MEDS ORDERED: LIDOCAINE 5% (LIDODERM) PATCH TD ONE (18:10)
[2022-09-18 18:45] VITALS: BP 147/80
== END 2022-09-18 19:31 | disposition home or self-care (01) ==
LOC: M ED 11:11
DX: M79.662 Pain in left lower leg (principal); M54.50 Low back pain, unspecified; I48.91 Unspecified atrial fibrillation; I10 Essential (primary) hypertension; E78.5 Hyperlipidemia, unspecified; K21.9 Gastro-esophageal reflux disease without esophagitis; D64.9 Anemia, unspecified; F41.9 Anxiety disorder, unspecified; F32.9 Major depressive disorder, single episode, unspecified; Z87.59 Personal history of other complications of pregnancy, childbirth and the puerperium; Z79.899 Other long term (current) drug therapy; Z88.6 Allergy status to analgesic agent; Z88.8 Allergy status to other drugs, medicaments and biological substances; Z91.02 Food additives allergy status

== ENCOUNTER 2022-12-02 20:18 | Emergency (ER) | payer OTHER, MEDICAID ==
[~2022-12-02] VITALS: Ht 157.5 cm; Wt 106.3 kg
[2022-12-02 21:08] LABS: BASO % 0.5 % (0.0-1.0); EOS # 0.2 10^3/uL (0.0-0.5); EOS % 2.7 % (0.0-3.0); HEMATOCRIT 42.8 % (36.0-47.0); HEMOGLOBIN 13.8 g/dl (12.0-15.5); LYMPH # 2.7 10^3/uL (1.5-5.0); LYMPH % 43.2 % (24.0-44.0); MEAN CORPUSCULAR HEMOGLOBIN 29.1 pg (27.0-33.0); MEAN CORPUSCULAR HGB CONC 32.2 g/dl (32.0-36.5); MEAN CORPUSCULAR VOLUME 90.3 fl (80.0-96.0); MONO # 0.5 10^3/uL (0.0-0.8); MONO % 7.5 % (2.0-8.0); NEUTROPHILS # 2.9 10^3/uL (1.5-8.5); NEUTROPHILS % 45.9 % (36.0-66.0); PLATELET COUNT, AUTOMATED 260 10^3/uL (150-450); RED BLOOD COUNT 4.74 10^6/uL (4.00-5.40); WHITE BLOOD COUNT 6.3 10^3/uL (4.0-10.0)
[2022-12-02 21:21] LABS: INR 0.89; PARTIAL THROMBOPLASTIN TIME 27.8 SECONDS (24.8-34.2); PROTHROMBIN TIME 12.2 SECONDS (12.5-14.5)
[2022-12-02 21:24] LABS: D-DIMER QUANT 1073.61 ng/ml (<500)
[2022-12-02 21:36] LABS: LIPASE 25 U/L (12-53)
[2022-12-02 21:37] LABS: BILIRUBIN,DIRECT < 0.1 MG/DL (<0.4)
[2022-12-02 21:38] LABS: ALKALINE PHOSPHATASE 119 U/L (46-116); ALT/SGPT 15 U/L (7.0-40); AST/SGOT 17 U/L (<34); BILIRUBIN,TOTAL 0.4 MG/DL (0.3-1.2); BLOOD UREA NITROGEN 13 MG/DL (9-23); CALCIUM LEVEL 8.8 MG/DL (8.5-10.1); CARBON DIOXIDE LEVEL 26 MMOL/L (20-31); CHLORIDE LEVEL 104 MMOL/L (98-107); CK-MB VALUE MASS < 1.0 NG/ML (<3.6); CREATININE FOR GFR 0.66 MG/DL (0.55-1.30); GLOMERULAR FILTRATION RATE > 60.0 (>58); GLUCOSE, FASTING 90 MG/DL (60-100); POTASSIUM SERUM 4.1 MMOL/L (3.5-5.1); SODIUM LEVEL 140 MMOL/L (136-145); TOTAL PROTEIN 7.5 G/DL (5.7-8.2)
[2022-12-02 21:41] LABS: THYROID STIMULATING HORMONE 3.669 uIU/ML (0.55-4.78)
[2022-12-02 21:50] LABS: CPK CREATINE PHOSPHOKINASE 85 U/L (34-145); MB/CK RELATIVE INDEX 1.17 (< OR =4)
[2022-12-02 22:36] LABS: CK-MB VALUE MASS < 1.0 NG/ML (<3.6)
[2022-12-02 22:37] LABS: CPK CREATINE PHOSPHOKINASE 92 U/L (34-145); MB/CK RELATIVE INDEX 1.08 (< OR =4)
[2022-12-03 02:33] VITALS: BP 148/90
== END 2022-12-03 03:56 | disposition left against medical advice (07) ==
LOC: M ED 20:18
DX: Z53.21 Procedure and treatment not carried out due to patient leaving prior to being seen by health care provider (principal)

== ENCOUNTER → 2022-12-21 | Outpatient (CLI) | payer MEDICARE, MEDICAID | LOC: M PLARAD 12:18 | PROVIDERS: ATTEND Podiatrist Foot & Ankle Surgery | DX: M25.571 Pain in right ankle and joints of right foot (principal) ==

== ENCOUNTER 2023-03-14 18:01 | Emergency (ER) | payer MEDICARE, MEDICAID ==
[~2023-03-14] VITALS: Ht 157.5 cm; Wt 104.5 kg
[~2023-03-14 18:01] MED LIST changes: +COLC0.6T47 PO; +LIDO15SO2 PO; -LIDO2SO PO; -METO1TAB87; -OMEP40CA5
[2023-03-14 18:03] VITALS: BP 137/86
== END 2023-03-14 20:22 | disposition home or self-care (01) ==
LOC: M ED 18:01
DX: S93.401A Sprain of unspecified ligament of right ankle, initial encounter (principal); X50.1XXA Overexertion from prolonged static or awkward postures, initial encounter; Y92.099 Unspecified place in other non-institutional residence as the place of occurrence of the external cause; E11.9 Type 2 diabetes mellitus without complications; I10 Essential (primary) hypertension; K21.9 Gastro-esophageal reflux disease without esophagitis; M77.31 Calcaneal spur, right foot; Z79.899 Other long term (current) drug therapy; Z88.6 Allergy status to analgesic agent; Z88.8 Allergy status to other drugs, medicaments and biological substances; Z91.02 Food additives allergy status

== ENCOUNTER 2023-03-26 09:10 | Day surgery (SDC) | payer MEDICARE, MEDICAID ==
[~2023-03-26] VITALS: Ht 157.5 cm; Wt 102.9 kg
[~2023-03-26 09:10] MED LIST changes: +NS 1,000 ML IV ONE
[2023-03-26] MEDS ORDERED: MIDAZOLAM INJ 2MG/2ML VIAL As Ordered ONE (10:53)
[2023-03-26] MEDS ORDERED: propofoL 200 MG/20 ML VIAL As Ordered ONE (10:53)
[2023-03-26] MEDS ORDERED: fentaNYL 100 MCG/2 ML INJECTION As Ordered ONE (11:56)
[2023-03-26 12:33] VITALS: BP 159/86
== END 2023-03-26 12:50 | disposition home or self-care (01) ==
LOC: M OPP 09:10
PROVIDERS: ATTEND Internal Medicine Gastroenterology
DX: R10.13 Epigastric pain (principal); I10 Essential (primary) hypertension; E78.5 Hyperlipidemia, unspecified; D50.9 Iron deficiency anemia, unspecified; M19.90 Unspecified osteoarthritis, unspecified site; F41.9 Anxiety disorder, unspecified; F31.9 Bipolar disorder, unspecified; G43.909 Migraine, unspecified, not intractable, without status migrainosus; J45.909 Unspecified asthma, uncomplicated; Z86.711 Personal history of pulmonary embolism; Z88.6 Allergy status to analgesic agent; Z91.02 Food additives allergy status; Z79.51 Long term (current) use of inhaled steroids; Z79.899 Other long term (current) drug therapy; Z80.8 Family history of malignant neoplasm of other organs or systems; Z82.49 Family history of ischemic heart disease and other diseases of the circulatory system; Z83.6 Family history of other diseases of the respiratory system
CPT/HCPCS: 43235; J3010

== ENCOUNTER → 2023-05-03 | Outpatient (CLI) | payer MEDICARE, MEDICAID ==
[~2023-05-03] MED LIST changes: +BARIUM SULFATE 700 MG TABLET (E-Z-DISK) As Ordered ONE; +E-Z-PAQUE 96% w/w SUSP 176GM BTL As Ordered ONE; -NS 1,000 ML IV ONE; +VARIBAR NECTAR 40% w/v 240ML SUSP BTL As Ordered ONE; +VARIBAR PUDDING 40% w/v 230ML TUBE As Ordered ONE
== END ==
LOC: M RAD 09:40
PROVIDERS: ATTEND Physician Assistant Medical
DX: R13.10 Dysphagia, unspecified (principal)

== ENCOUNTER 2023-05-14 11:51 | Emergency (ER) | payer MEDICARE, MEDICAID ==
[~2023-05-14] VITALS: Ht 157.5 cm; Wt 99.5 kg
[~2023-05-14 11:51] MED LIST changes: -BARIUM SULFATE 700 MG TABLET (E-Z-DISK) As Ordered ONE; -E-Z-PAQUE 96% w/w SUSP 176GM BTL As Ordered ONE; -VARIBAR NECTAR 40% w/v 240ML SUSP BTL As Ordered ONE; -VARIBAR PUDDING 40% w/v 230ML TUBE As Ordered ONE
[2023-05-14 17:17] VITALS: BP 155/99; TEMP 97.8; O2SAT 97
== END 2023-05-14 17:22 | disposition home or self-care (01) ==
LOC: M ED 11:51
DX: S93.402A Sprain of unspecified ligament of left ankle, initial encounter (principal); S80.01XA Contusion of right knee, initial encounter; W19.XXXA Unspecified fall, initial encounter; Y92.009 Unspecified place in unspecified non-institutional (private) residence as the place of occurrence of the external cause; R55 Syncope and collapse; I25.10 Atherosclerotic heart disease of native coronary artery without angina pectoris; F41.9 Anxiety disorder, unspecified; F32.A Depression, unspecified; J44.9 Chronic obstructive pulmonary disease, unspecified; Z79.899 Other long term (current) drug therapy; Z88.6 Allergy status to analgesic agent; Z88.8 Allergy status to other drugs, medicaments and biological substances; Z91.02 Food additives allergy status

== ENCOUNTER → 2023-10-01 | Outpatient (CLI) | payer MEDICARE, MEDICAID ==
[~2023-10-01] MED LIST changes: -CEFD300C41 PO; +CEFD300C42 PO
== END ==
LOC: M PLAIMG 11:07
PROVIDERS: ATTEND Physician Assistant
DX: S90.01XA Contusion of right ankle, initial encounter (principal); M77.31 Calcaneal spur, right foot; X58.XXXA Exposure to other specified factors, initial encounter; Y92.9 Unspecified place or not applicable; Y93.9 Activity, unspecified; Y99.9 Unspecified external cause status

== ENCOUNTER 2023-10-18 13:34 | Emergency (ER) | payer MEDICARE, MEDICAID ==
[~2023-10-18] VITALS: Ht 157.5 cm; Wt 103.6 kg
[2023-10-18] MEDS ORDERED: SUCRALFATE 1 GM TAB PO ONE (14:40)
[2023-10-18] MEDS ORDERED: PANTOPRAZOLE 40MG VIAL IV ONE (14:40)
[2023-10-18] MEDS ORDERED: MAALOX 30 ML SUSP *UDC PO ONE (14:40)
[2023-10-18 14:52] LABS: BASO % 0.3 % (0.0-1.0); EOS # 0.1 10^3/uL (0.0-0.5); EOS % 1.5 % (0.0-3.0); HEMATOCRIT 41.5 % (36.0-47.0); HEMOGLOBIN 13.8 g/dl (12.0-15.5); LYMPH # 1.2 10^3/uL (1.5-5.0); MEAN CORPUSCULAR HEMOGLOBIN 30.1 pg (27.0-33.0); MEAN CORPUSCULAR HGB CONC 33.3 g/dl (32.0-36.5); MEAN CORPUSCULAR VOLUME 90.6 fl (80.0-96.0); MONO # 0.5 10^3/uL (0.0-0.8); MONO % 6.9 % (2.0-8.0); NEUTROPHILS # 5.3 10^3/uL (1.5-8.5); PLATELET COUNT, AUTOMATED 239 10^3/uL (150-450); RED BLOOD COUNT 4.58 10^6/uL (4.00-5.40); WHITE BLOOD COUNT 7.2 10^3/uL (4.0-10.0)
[2023-10-18 15:26] LABS: LIPASE 24 U/L (12-53)
[2023-10-18 15:29] LABS: ALBUMIN 3.7 G/DL (3.2-5.2); ALKALINE PHOSPHATASE 104 U/L (46-116); ALT/SGPT 16 U/L (7.0-40); AST/SGOT 14 U/L (<34); BILIRUBIN,DIRECT 0.1 MG/DL (<0.4); BILIRUBIN,TOTAL 0.4 MG/DL (0.3-1.2); BLOOD UREA NITROGEN 14 MG/DL (9-23); CALCIUM LEVEL 8.7 MG/DL (8.5-10.1); CARBON DIOXIDE LEVEL 27 MMOL/L (20-31); CHLORIDE LEVEL 104 MMOL/L (98-107); CK-MB VALUE MASS < 1.0 NG/ML (<3.6); CREATININE FOR GFR 0.62 MG/DL (0.55-1.30); GLOMERULAR FILTRATION RATE > 60.0 (>58); GLUCOSE, FASTING 101 MG/DL (60-100); SODIUM LEVEL 141 MMOL/L (136-145); TOTAL PROTEIN 6.9 G/DL (5.7-8.2)
[2023-10-18 15:30] LABS: THYROID STIMULATING HORMONE 3.449 uIU/ML (0.55-4.78)
[2023-10-18 15:31] LABS: FREE T4 0.99 NG/DL (0.89-1.76)
[2023-10-18 15:33] LABS: CPK CREATINE PHOSPHOKINASE 82 U/L (34-145); MB/CK RELATIVE INDEX 1.21 (< OR =4)
[2023-10-18] MEDS ORDERED: ACETAMINOPHEN 325 MG TAB PO ONE (15:55)
[2023-10-18] MEDS ORDERED: PEPC1TAB5 PO (17:54)
[2023-10-18] MEDS ORDERED: CARA1TAB6 PO (17:54)
[2023-10-18 18:15] VITALS: BP 115/58; TEMP 98.9; O2SAT 94
== END 2023-10-18 18:27 | disposition home or self-care (01) ==
LOC: M ED 13:34
DX: K21.9 Gastro-esophageal reflux disease without esophagitis (principal); E11.9 Type 2 diabetes mellitus without complications; I10 Essential (primary) hypertension; E78.5 Hyperlipidemia, unspecified; J45.909 Unspecified asthma, uncomplicated; F31.9 Bipolar disorder, unspecified; Z88.6 Allergy status to analgesic agent; Z91.048 Other nonmedicinal substance allergy status; Z79.02 Long term (current) use of antithrombotics/antiplatelets; Z79.52 Long term (current) use of systemic steroids; Z79.83 Long term (current) use of bisphosphonates; Z79.810 Long term (current) use of selective estrogen receptor modulators (SERMs); Z79.899 Other long term (current) drug therapy
CPT/HCPCS: 71045; 80048; 80076; 82550; 82553; 83690; 84439; 84443; 84484; 85025; 93005; 93041; 94760; 96374; 99285; C9113

== ENCOUNTER → 2024-01-07 | Outpatient (CLI) | payer MEDICARE, MEDICAID ==
[~2024-01-07] MED LIST changes: +CARA1TAB6 PO; +CEFD1CAP9 PO; -CEFD300C42 PO
[2024-01-07 14:21] LABS: THYROID STIMULATING HORMONE 3.366 uIU/ML (0.55-4.78); TOTAL 25(OH) VITAMIN D 32.6 NG/ML (20.0-100.0)
[2024-01-07 14:22] LABS: FREE T4 0.91 NG/DL (0.89-1.76)
== END ==
LOC: M PLALAB 09:35
PROVIDERS: ATTEND Physician Assistant Medical
DX: E55.9 Vitamin D deficiency, unspecified (principal); R53.82 Chronic fatigue, unspecified

== ENCOUNTER 2024-02-20 14:11 | Emergency (ER) | payer MEDICARE, MEDICAID ==
[~2024-02-20] VITALS: Ht 157.5 cm; Wt 107.7 kg
[~2024-02-20 14:11] MED LIST changes: -LIDO15SO2 PO; +LIDO15SO9 PO
[2024-02-20] MEDS ORDERED: ALBU1.25 INH (14:43)
[2024-02-20] MEDS ORDERED: ONDA4TAB6 SL (14:43)
[2024-02-20 15:01] LABS: BASO % 0.4 % (0.0-1.0); EOS # 0.1 10^3/uL (0.0-0.5); EOS % 2.8 % (0.0-3.0); HEMATOCRIT 40.8 % (36.0-47.0); HEMOGLOBIN 13.6 g/dl (12.0-15.5); LYMPH # 1.7 10^3/uL (1.5-5.0); LYMPH % 35.6 % (24.0-44.0); MEAN CORPUSCULAR HEMOGLOBIN 30.2 pg (27.0-33.0); MEAN CORPUSCULAR HGB CONC 33.3 g/dl (32.0-36.5); MEAN CORPUSCULAR VOLUME 90.7 fl (80.0-96.0); MONO # 0.4 10^3/uL (0.0-0.8); MONO % 8.2 % (2.0-8.0); NEUTROPHILS # 2.4 10^3/uL (1.5-8.5); NEUTROPHILS % 52.8 % (36.0-66.0); PLATELET COUNT, AUTOMATED 259 10^3/uL (150-450); WHITE BLOOD COUNT 4.6 10^3/uL (4.0-10.0)
[2024-02-20 15:18] LABS: INR 1.06; PROTHROMBIN TIME 13.5 SECONDS (12.5-14.5)
[2024-02-20 15:26] LABS: LIPASE 27 U/L (12-53)
[2024-02-20 15:28] LABS: ALBUMIN 3.8 G/DL (3.2-5.2); ALKALINE PHOSPHATASE 94 U/L (46-116); ALT/SGPT 18 U/L (7.0-40); AST/SGOT 18 U/L (<34); BILIRUBIN,DIRECT 0.1 MG/DL (<0.4); BILIRUBIN,TOTAL 0.6 MG/DL (0.3-1.2); BLOOD UREA NITROGEN 16 MG/DL (9-23); CALCIUM LEVEL 9.2 MG/DL (8.5-10.1); CARBON DIOXIDE LEVEL 28 MMOL/L (20-31); CHLORIDE LEVEL 105 MMOL/L (98-107); CK-MB VALUE MASS < 1.0 NG/ML (<3.6); CPK CREATINE PHOSPHOKINASE 103 U/L (34-145); CREATININE FOR GFR 0.77 MG/DL (0.55-1.30); GLOMERULAR FILTRATION RATE > 60.0 (>58); GLUCOSE, FASTING 104 MG/DL (60-100); MB/CK RELATIVE INDEX 0.97 (< OR =4); SODIUM LEVEL 138 MMOL/L (136-145); TOTAL PROTEIN 7.1 G/DL (5.7-8.2)
[2024-02-20 15:29] LABS: FREE T4 0.96 NG/DL (0.89-1.76)
[2024-02-20 15:30] LABS: THYROID STIMULATING HORMONE 1.962 uIU/ML (0.55-4.78)
[2024-02-20 16:56] LABS: CK-MB VALUE MASS < 1.0 NG/ML (<3.6)
[2024-02-20 16:57] LABS: CPK CREATINE PHOSPHOKINASE 96 U/L (34-145); MB/CK RELATIVE INDEX 1.04 (< OR =4)
[2024-02-20 17:09] VITALS: TEMP 97.3
[2024-02-20] MEDS ORDERED: ISOVUE-370 76% 100ML VIAL As Ordered ONE (18:16)
[2024-02-20] MEDS: NS 1,000 ML IV ONE (18:20)
[2024-02-20 19:41] VITALS: BP 144/82; O2SAT 99
== END 2024-02-20 19:47 | disposition home or self-care (01) ==
LOC: M ED 15:58
DX: R07.89 Other chest pain (principal); K21.9 Gastro-esophageal reflux disease without esophagitis; J45.909 Unspecified asthma, uncomplicated; F31.9 Bipolar disorder, unspecified; I10 Essential (primary) hypertension; Z88.6 Allergy status to analgesic agent; Z91.048 Other nonmedicinal substance allergy status; Z79.52 Long term (current) use of systemic steroids; Z79.83 Long term (current) use of bisphosphonates; Z79.899 Other long term (current) drug therapy
CPT/HCPCS: 71045; 71275; 80048; 80076; 82550; 82553; 83690; 83880; 84439; 84443; 84484; 85025; 85610; 85730; 93005; 93041; 94760; 96360; 99284; Q9967

== ENCOUNTER → 2024-05-09 | Outpatient (CLI) | payer MEDICARE, MEDICAID ==
[~2024-05-09] MED LIST changes: +ALBU1.25 INH; +FLUO-365; -FLUO20CA22; +NYST100084; -NYST10OI; +ONDA-282 SL
== END ==
LOC: M RAD 12:14
PROVIDERS: ATTEND Podiatrist Foot & Ankle Surgery
DX: M79.671 Pain in right foot (principal)

== ENCOUNTER → 2024-07-09 | Outpatient (CLI) | payer MEDICARE ==
[2024-07-09 10:52] LABS: BASO # 0.1 10^3/uL (0.0-0.2); BASO % 0.9 % (0.0-1.0); EOS # 0.2 10^3/uL (0.0-0.5); EOS % 4.4 % (0.0-3.0); HEMATOCRIT 42.6 % (36.0-47.0); HEMOGLOBIN 13.6 g/dl (12.0-15.5); LYMPH # 2.2 10^3/uL (1.5-5.0); LYMPH % 40.8 % (24.0-44.0); MEAN CORPUSCULAR HGB CONC 31.9 g/dl (32.0-36.5); MONO # 0.5 10^3/uL (0.0-0.8); MONO % 9.2 % (2.0-8.0); NEUTROPHILS # 2.4 10^3/uL (1.5-8.5); NEUTROPHILS % 44.3 % (36.0-66.0); PLATELET COUNT, AUTOMATED 283 10^3/uL (150-450); RED BLOOD COUNT 4.53 10^6/uL (4.00-5.40); WHITE BLOOD COUNT 5.4 10^3/uL (4.0-10.0)
[2024-07-09 11:16] LABS: ALBUMIN 3.8 G/DL (3.2-5.2); ALKALINE PHOSPHATASE 119 U/L (46-116); ALT/SGPT 19 U/L (7.0-40); AST/SGOT 17 U/L (<34); BILIRUBIN,TOTAL 0.6 MG/DL (0.3-1.2); BLOOD UREA NITROGEN 12 MG/DL (9-23); CALCIUM LEVEL 9.3 MG/DL (8.5-10.1); CARBON DIOXIDE LEVEL 29 MMOL/L (20-31); CHLORIDE LEVEL 105 MMOL/L (98-107); CHOLESTEROL LEVEL 280 MG/DL (<200); CHOLESTEROL RISK RATIO 5.65 (<5); CREATININE FOR GFR 0.72 MG/DL (0.55-1.30); GLOMERULAR FILTRATION RATE > 60.0 (>58); GLUCOSE, FASTING 105 MG/DL (60-100); HDL CHOLESTEROL 49.5 MG/DL (>40); HEMOGLOBIN A1c 5.5 % (4.0-6.0); LDL CHOLESTEROL 190.1 MG/DL (<100); NON-HDL-C 230.5 MG/DL; POTASSIUM SERUM 4.1 MMOL/L (3.5-5.1); SODIUM LEVEL 140 MMOL/L (136-145); TOTAL PROTEIN 7.2 G/DL (5.7-8.2); TRIGLYCERIDES LEVEL 202 MG/DL (<150)
[2024-07-09 11:17] LABS: TOTAL 25(OH) VITAMIN D 40.2 NG/ML (20.0-100.0)
== END ==
LOC: M PLALAB 08:08
PROVIDERS: ATTEND Physician Assistant Medical
DX: E55.9 Vitamin D deficiency, unspecified (principal); M54.50 Low back pain, unspecified; E78.00 Pure hypercholesterolemia, unspecified; I10 Essential (primary) hypertension; Z86.32 Personal history of gestational diabetes; M85.88 Other specified disorders of bone density and structure, other site

== ENCOUNTER 2024-10-07 09:28 | Emergency (ER) | payer MEDICARE, MEDICAID ==
[~2024-10-07] VITALS: Ht 157.5 cm; Wt 111.5 kg
[~2024-10-07 09:28] MED LIST changes: -CYCL5TAB PO; +CYCL5TAB4 PO
[2024-10-07 10:18] LABS: BASO % 0.7 % (0.0-1.0); EOS # 0.2 10^3/uL (0.0-0.5); EOS % 2.8 % (0.0-3.0); HEMATOCRIT 42.9 % (36.0-47.0); HEMOGLOBIN 14.2 g/dl (12.0-15.5); LYMPH # 2.3 10^3/uL (1.5-5.0); LYMPH % 43.1 % (24.0-44.0); MEAN CORPUSCULAR HEMOGLOBIN 30.1 pg (27.0-33.0); MEAN CORPUSCULAR HGB CONC 33.1 g/dl (32.0-36.5); MEAN CORPUSCULAR VOLUME 91.1 fl (80.0-96.0); MONO # 0.5 10^3/uL (0.0-0.8); MONO % 9.8 % (2.0-8.0); NEUTROPHILS # 2.4 10^3/uL (1.5-8.5); NEUTROPHILS % 43.4 % (36.0-66.0); PLATELET COUNT, AUTOMATED 229 10^3/uL (150-450); RED BLOOD COUNT 4.71 10^6/uL (4.00-5.40); WHITE BLOOD COUNT 5.4 10^3/uL (4.0-10.0)
[2024-10-07 10:36] LABS: INR 0.91; PROTHROMBIN TIME 12.6 SECONDS (12.5-14.5)
[2024-10-07 10:39] LABS: LIPASE 27 U/L (12-53)
[2024-10-07 10:41] LABS: ALBUMIN 3.6 G/DL (3.2-5.2); ALKALINE PHOSPHATASE 108 U/L (35-104); ALT/SGPT 20 U/L (7.0-40); AST/SGOT 18 U/L (<34); BILIRUBIN,DIRECT 0.1 MG/DL (<0.4); BILIRUBIN,TOTAL 0.5 MG/DL (0.3-1.2); BLOOD UREA NITROGEN 16 MG/DL (9-23); CARBON DIOXIDE LEVEL 29 MMOL/L (20-31); CHLORIDE LEVEL 104 MMOL/L (98-107); CK-MB VALUE MASS < 1.0 NG/ML (<3.6); GLOMERULAR FILTRATION RATE > 60.0 (>58); GLUCOSE, FASTING 95 MG/DL (60-100); POTASSIUM SERUM 4.1 MMOL/L (3.5-5.1); SODIUM LEVEL 138 MMOL/L (136-145); TOTAL PROTEIN 7.6 G/DL (5.7-8.2)
[2024-10-07 10:43] LABS: CPK CREATINE PHOSPHOKINASE 109 U/L (34-145); MB/CK RELATIVE INDEX 0.91 (< OR =4)
[2024-10-07] MEDS ORDERED: ISOVUE-370 76% 100ML VIAL As Ordered ONE (10:58)
[2024-10-07 11:30] LABS: CK-MB VALUE MASS < 1.0 NG/ML (<3.6)
[2024-10-07 11:34] LABS: CPK CREATINE PHOSPHOKINASE 72 U/L (34-145); MB/CK RELATIVE INDEX 1.38 (< OR =4)
[2024-10-07] MEDS ORDERED: SUCR1SS PO (13:01)
[2024-10-07] MEDS ORDERED: PROT20TA11 PO (13:01)
[2024-10-07 13:28] VITALS: BP 140/84
[2024-10-07 13:33] VITALS: TEMP 97.4; O2SAT 98
== END 2024-10-07 13:36 | disposition home or self-care (01) ==
LOC: M ED 09:28
DX: R07.9 Chest pain, unspecified (principal); I48.91 Unspecified atrial fibrillation; E78.5 Hyperlipidemia, unspecified; I10 Essential (primary) hypertension; K21.9 Gastro-esophageal reflux disease without esophagitis; Z86.711 Personal history of pulmonary embolism; Z98.61 Coronary angioplasty status; Z79.899 Other long term (current) drug therapy; Z88.6 Allergy status to analgesic agent; Z88.8 Allergy status to other drugs, medicaments and biological substances; Z91.02 Food additives allergy status
CPT/HCPCS: 69210; 71045; 71275; 80048; 80076; 82550; 82553; 83690; 84484; 85025; 85610; 93005; 93041; 93970; 94760; 99285; G0463; Q9967

== ENCOUNTER 2024-11-15 19:49 | Emergency (ER) | payer MEDICARE, MEDICAID ==
[~2024-11-15] VITALS: Ht 157.5 cm; Wt 109.4 kg
[~2024-11-15 19:49] MED LIST changes: +PROT20TA11 PO; +SUCR1SS PO
[2024-11-15 20:38] LABS: BASO % 0.6 % (0.0-1.0); EOS # 0.1 10^3/uL (0.0-0.5); EOS % 2.1 % (0.0-3.0); HEMATOCRIT 44.3 % (36.0-47.0); HEMOGLOBIN 14.7 g/dl (12.0-15.5); LYMPH # 1.5 10^3/uL (1.5-5.0); LYMPH % 28.7 % (24.0-44.0); MEAN CORPUSCULAR HEMOGLOBIN 29.6 pg (27.0-33.0); MEAN CORPUSCULAR HGB CONC 33.2 g/dl (32.0-36.5); MEAN CORPUSCULAR VOLUME 89.3 fl (80.0-96.0); MONO # 0.4 10^3/uL (0.0-0.8); MONO % 7.6 % (2.0-8.0); NEUTROPHILS # 3.1 10^3/uL (1.5-8.5); NEUTROPHILS % 60.8 % (36.0-66.0); PLATELET COUNT, AUTOMATED 270 10^3/uL (150-450); RED BLOOD COUNT 4.96 10^6/uL (4.00-5.40); WHITE BLOOD COUNT 5.2 10^3/uL (4.0-10.0)
[2024-11-15 21:01] LABS: LIPASE 23 U/L (12-53)
[2024-11-15 21:04] LABS: ALBUMIN 3.9 G/DL (3.2-5.2); ALKALINE PHOSPHATASE 114 U/L (35-104); ALT/SGPT 28 U/L (7.0-40); AST/SGOT 25 U/L (<34); BILIRUBIN,DIRECT 0.1 MG/DL (<0.4); BILIRUBIN,TOTAL 0.7 MG/DL (0.3-1.2); BLOOD UREA NITROGEN 7 MG/DL (9-23); CALCIUM LEVEL 9.5 MG/DL (8.5-10.1); CARBON DIOXIDE LEVEL 27 MMOL/L (20-31); CHLORIDE LEVEL 104 MMOL/L (98-107); CREATININE FOR GFR 0.72 MG/DL (0.55-1.30); GLOMERULAR FILTRATION RATE > 60.0 (>58); GLUCOSE, FASTING 106 MG/DL (60-100); POTASSIUM SERUM 4.6 MMOL/L (3.5-5.1); SODIUM LEVEL 140 MMOL/L (136-145); TOTAL PROTEIN 7.5 G/DL (5.7-8.2)
[2024-11-15 23:21] VITALS: BP 126/85; TEMP 97.3; O2SAT 96
[2024-11-15] MEDS ORDERED: COLA100C5 PO (23:22)
== END 2024-11-15 23:43 | disposition home or self-care (01) ==
LOC: M ED 19:49
DX: K59.00 Constipation, unspecified (principal); E34.8 Other specified endocrine disorders; I10 Essential (primary) hypertension; E78.5 Hyperlipidemia, unspecified; D64.9 Anemia, unspecified; Z79.899 Other long term (current) drug therapy; Z88.6 Allergy status to analgesic agent; Z88.8 Allergy status to other drugs, medicaments and biological substances; Z91.02 Food additives allergy status

== ENCOUNTER → 2025-04-14 | Outpatient (CLI) | payer MEDICARE, MEDICAID ==
[~2025-04-14] MED LIST changes: +COLA100C5 PO; +LIDO1ADH93 TD; -LIDO5DIS41 TD
[2025-04-14 09:39] LABS: BASO % 0.7 % (0.0-1.0); EOS # 0.2 10^3/uL (0.0-0.5); EOS % 3.3 % (0.0-3.0); LYMPH # 1.9 10^3/uL (1.5-5.0); LYMPH % 41.5 % (24.0-44.0); MEAN CORPUSCULAR HEMOGLOBIN 29.9 pg (27.0-33.0); MEAN CORPUSCULAR HGB CONC 32.6 g/dl (32.0-36.5); MEAN CORPUSCULAR VOLUME 91.9 fl (80.0-96.0); MONO # 0.5 10^3/uL (0.0-0.8); NEUTROPHILS % 44.3 % (36.0-66.0); PLATELET COUNT, AUTOMATED 254 10^3/uL (150-450); RED BLOOD COUNT 4.68 10^6/uL (4.00-5.40); WHITE BLOOD COUNT 4.6 10^3/uL (4.0-10.0)
[2025-04-14 10:03] LABS: TOTAL 25(OH) VITAMIN D 47.9 NG/ML (20.0-100.0)
[2025-04-14 10:04] LABS: ALBUMIN 3.8 G/DL (3.2-5.2); ALKALINE PHOSPHATASE 107 U/L (35-104); ALT/SGPT 17 U/L (7.0-40); AST/SGOT 13 U/L (<34); BILIRUBIN,TOTAL 0.5 MG/DL (0.3-1.2); BLOOD UREA NITROGEN 16 MG/DL (9-23); CALCIUM LEVEL 9.4 MG/DL (8.5-10.1); CARBON DIOXIDE LEVEL 30 MMOL/L (20-31); CHLORIDE LEVEL 105 MMOL/L (98-107); CHOLESTEROL LEVEL 239 MG/DL (<200); GLOMERULAR FILTRATION RATE > 90.0 (>58); GLUCOSE, FASTING 94 MG/DL (60-100); HDL CHOLESTEROL 47.8 MG/DL (>40); LDL CHOLESTEROL 155.2 MG/DL (<100); NON-HDL-C 191.2 MG/DL; POTASSIUM SERUM 4.1 MMOL/L (3.5-5.1); SODIUM LEVEL 143 MMOL/L (136-145); TRIGLYCERIDES LEVEL 180 MG/DL (<150)
== END ==
LOC: M LAB 08:51
PROVIDERS: ATTEND Physician Assistant Medical
DX: Z13.6 Encounter for screening for cardiovascular disorders (principal); E55.9 Vitamin D deficiency, unspecified; E78.5 Hyperlipidemia, unspecified

== ENCOUNTER → 2025-07-30 | Outpatient (REF) | LOC: M LAB 10:37 | PROVIDERS: ATTEND Family Medicine | DX: Z02.89 Encounter for other administrative examinations (principal) ==

== ENCOUNTER → 2025-08-20 | Outpatient (CLI) | payer MEDICARE, MEDICAID ==
[~2025-08-20] MED LIST changes: -COLC0.6T47 PO; +COLC0.6T53 PO
== END ==
LOC: M RAD 14:35
PROVIDERS: ATTEND Orthopaedic Surgery
DX: M54.16 Radiculopathy, lumbar region (principal)